=== PATIENT | female | born 1985 | race African-American/Black ===

== ENCOUNTER 2020-02-15 03:51 | Emergency (ER) | payer OTHER, SELFPAY ==
[2020-02-15 04:01] VITALS: BP 151/75; PULSE 115; RESP 20; TEMP 37.2; O2SAT 100; BMI 25.0
[2020-02-15] MEDS: Ketorolac Tromethamine 15 MG/ML VIAL IM (04:46)
[2020-02-15] MEDS: LORazepam 1 MG TABLET PO (04:47)
--- NOTE | 2020-02-15 04:47 | PC.NURSE ---
PATIENT MEDICATED FOR PAIN PER EMAR NOTED. PATIENT RESTING AT THIS TIME
--- NOTE | 2020-02-15 05:11 | PC.NURSE ---
PATIENT HAS SOME RELIEF IN HER PAIN LEVEL.
[2020-02-15 05:12] VITALS: BP 134/53; PULSE 76; RESP 18; TEMP 37; O2SAT 99
--- NOTE | 2020-02-15 05:35 | ED_ITS ---
HPI - Skin/Abscess/Foreign Bdy General Chief complaint: Abdominal Pain Stated complaint: abd pain Time Seen by Provider: 02/15/20 04:37 History of Present Illness HPI narrative: This is a 34-year-old female who presents with a tender area to her right breast without associated fevers, chills, nipple discharge. She states that this started approximately 2 days ago and has increased somewhat in size and is now quite painful. Related Data Home Medications Medication Instructions Recorded Confirmed acetaminophen [Pain Reliever] PO 02/15/20 acetaminophen-codeine 1 tab PO Q12H PRN 02/15/20 02/15/20 gabapentin PO 02/15/20 Allergies Allergy/AdvReac Type Severity Reaction Status Date / Time morphine [MORPHINE] Allergy Unknown HIVES Verified 02/15/20 04:39 raspberry [Raspberry] Allergy Unknown HIVES Verified 02/15/20 04:39 MAcrobid Allergy Unknown GI side Uncoded 02/15/20 04:39 effects morphine Allergy Unknown itching Uncoded 02/15/20 04:40 raspberries Allergy Unknown hives/itchi Uncoded 02/15/20 04:40 ng Raspberry Flavor Allergy Unknown hives Uncoded 02/15/20 04:40 Review of Systems Review of Systems: Pertinent positives and negatives as stated in HPI 10 point review of systems is otherwise negative. PMFSH Past Medical History Medical History Amput below knee, unilat Anxiety Diabetes Hypertension Social History Social History Alcohol intake: unknown Smoking Status: Smoker, status unknown Smoked in Last 30 Days: Yes Use of substances other than those prescribed or required for medical reasons: Yes Substance Use Type: Marijuana Advance Directives: No Advance Directives Information Provided: No Physical Exam Vital Signs and I&O and Narrative: Vital Signs and I&O: Vital Signs Temp 98.6 F 02/15/20 05:12 Pulse 76 02/15/20 05:12 Resp 18 02/15/20 05:12 BP 134/53 L 02/15/20 05:12 Pulse Ox 99 02/15/20 05:12 Intake & Output 02/14/20 02/14/20 02/15/20 06:59 18:59 06:59 Weight 74.843 kg Body Mass Index 25.0 VITAL SIGNS: Reviewed. GENERAL: Well developed, well nourished, in no acute distress. HEAD: Normocephalic/atraumatic, EYES: PERRLA, EOMI intact without pain, no nystagmus/pallor/icterus noted EARS: Ext canals without abnormality, TMs non-bulging and non-erythematous NOSE: Nares patent bilateral OROPHARYNX: no oral lesions noted, posterior pharynx clear and non-erythematous without noted tonsillar enlargement/erythema/exudates NECK: Supple, no adenopathy LUNGS: Normal breath sounds. No adventitious sounds or accessory muscle use. SpO2<99> BREASTS: [employer] present (MARY Mireles), there is a noted 0.5 cm folliculitis at the lateral portion of a pendulous breast that is not erythematous or indurated CARDIOVASCULAR: Regular rate and rhythm without noted murmurs, no JVD or lower extremity edema. ABDOMEN: Soft, non-tender, non-distended with bowel sounds. No rigidity. No guarding. No palpable masses or hernias noted MUSCULOSKELETAL: No tenderness, deformities, or effusions noted on gross inspection. EXTREMITIES: No cyanosis, clubbing or edema. SKIN: Inspection of the skin reveals no rashes, ulcerations, jaundice, pallor, or petechiae. NEUROLOGIC: Alert and oriented x 4. Strength and sensation to light touch were grossly intact Course Course Hospital Course: This is a 34-year-old female who will be treated for mild folliculitis and provided instructions for treating at home with warm moist compresses as well as a short course of antibiotics. MDM - Skin/Abscess/Foreign Bdy MDM Narrative Medical decision making narrative: Folliculitis and doubt abscess Discharge Plan Discharge Clinical Impression: Folliculitis Patient Disposition: Home, Self-Care Instructions: Folliculitis (ED) Additional Instructions: 1. Apply warm, moist compresses at least 3 times a day for 5-10 minutes. 2. You will need to follow-up with a primary care provider, please see the contact information below Prescriptions: No Action acetaminophen [Pain Reliever] 325 mg tablet PO RF: 0 acetaminophen-codeine 300-30 mg tablet 1 tab PO Q12H PRN (Reason: Pain (Scale Score 4-6)) RF: 0 gabapentin 100 mg capsule PO RF: 0 Referrals: Keyon Calvin MD [] - 2 days ( folliculitis of the right breast)
== END 2020-02-15 05:56 | disposition home or self-care (01) ==
PROVIDERS: Emergency Provider Student in an Organized Health Care Education/Training Program
DX: L73.9 Follicular disorder, unspecified (principal); N64.4 Mastodynia; E11.9 Type 2 diabetes mellitus without complications; I10 Essential (primary) hypertension
CPT/HCPCS: 96372; 99284; J1885

== ENCOUNTER 2020-04-10 10:16 | Emergency (ER) | payer OTHER, SELFPAY ==
[2020-04-10 10:47] VITALS: BP 115/75; PULSE 92; RESP 20; TEMP 36.9; O2SAT 98; BMI 25.0
--- NOTE | 2020-04-10 11:08 | ED_ITS ---
HPI - Abdominal Pain General Chief Complaint: Abdominal Pain Stated Complaint: ABD PAIN Time Seen by Provider: 04/10/20 10:47 Source: patient Mode of arrival: ambulatory Limitations: no limitations History of Present Illness HPI narrative: 34 y/o female with history of DM1 (dx age 15), neuropathy, s/p right BKA, depression/anxiety, hx pancreatitis, hx gastroparesis s/p gastric stimulator placement at [facility] 6 years ago who presents severe nausea and epigastric abdominal pain that radiates to her back. She states it started last night and she took a dose of PO reglan without improvement. The nausea is severe and she is afraid to try to take the reglan again. She described the abd pain as sharp, constant. No episodes of vomiting. Her gluocse has been well controlled, reported 72 this morning. She has had a recent cough and some sweats and chills at home. She was around family members 2 weeks ago who tested positive for COVID last weekend. She states she was admitted at [facility] for 1 week about 2 months ago for pancreatitis. She does not recall the cause of her pancreatitis. The abdominal pain she is having feels similar. She denies alcohol use, no new medications. Related Data Home Medications Medication Instructions Recorded Confirmed acetaminophen [Pain Reliever PO 02/15/20 04/08/20 (acetaminophen)] gabapentin PO 02/15/20 04/08/20 insulin glargine 100 unit/mL (3 unit SUBCUT 04/08/20 04/08/20 mL) subcutaneous pen insulin lispro 100 unit/mL unit SUBCUT 04/08/20 04/08/20 subcutaneous pen lisinopril 5 mg tablet 5 mg PO DAILY 04/08/20 04/08/20 omeprazole 20 mg capsule,delayed 20 mg PO DAILY 04/08/20 04/08/20 release Previous Rx's Medication Instructions Recorded acetaminophen 300 mg-codeine 30 mg 1 tab PO Q8H 10 Days #30 tab 04/08/20 tablet ondansetron 4 mg disintegrating 4 mg PO Q8H PRN 30 Days #90 tab 04/08/20 tablet metoclopramide HCl [Reglan] 10 mg PO Q6H PRN #20 tab 04/10/20 Allergies Allergy/AdvReac Type Severity Reaction Status Date / Time morphine [MORPHINE] Allergy Unknown HIVES Verified 04/08/20 13:54 raspberry [Raspberry] Allergy Unknown HIVES Verified 04/08/20 13:54 nitrofurantoin AdvReac Unknown GI side Verified 04/08/20 13:54 [From Macrobid] effects Review of Systems Review of Systems Constitutional: No Fever, + Chills ENT/Mouth: + sore throat, + Rhinorrhea, No Swallowing Difficulty Eyes: No Eye Pain, No Swelling, No Redness Cardiovascular: No Chest Pain, No SOB, No Orthopnea, No Edema Respiratory: + Cough, No Sputum, No Wheezing, + dyspnea Gastrointestinal: + Nausea, No Vomiting, No Diarrhea, + abdominal Pain, No Hematochezia, No Melena Genitourinary: No Dysuria, No Urinary Frequency, No Hematuria Musculoskeletal: No joint pain, + Myalgias Skin: No Skin Lesions, No rash Neuro: No Weakness, No Numbness, No Dizziness, No Headache Psych: + Anxiety/Panic, No Depression Heme/Lymph: No Bruising, No Lymphadenopathy Endocrine: No Polyuria, No Polydipsia Physical Exam Vital Signs: Vital Signs: Last Vital Signs Temp 98.4 F 04/10/20 10:47 Pulse 95 04/10/20 14:12 Resp 20 04/10/20 14:12 BP 129/77 04/10/20 14:12 Pulse Ox 100 04/10/20 14:12 Body Mass Index 25.0 Appearance: Alert. Oriented X3. Restless, appears uncomfortable. Eyes: Pupils equal, round and reactive to light. ENT: Pharynx normal. Neck: Normal inspection. Neck supple. CVS: Normal heart rate and rhythm. Pulses normal. Respiratory: No respiratory distress. Breath sounds normal. Abdomen: well healed 6cm surgical scar in LUQ, soft, epigastric tenderness, mild RUQ tenderness, negative Cordero's sign +BS x4 Skin: Skin warm and dry. Normal skin color. Normal skin turgor. No rashes. Extremities: No lower extremity edema. s/p right BKA, prosthesis in place Neuro: Oriented X 3. No motor deficit. No sensory deficit. Course Course Course Narrative: 34 y/o diabetic type 1, hx gastroparesis and recent pancreatitis presents with abdominal pain and nausea. Concern for recurrent pancreatitis vs gastroparesis set off from upper respiratory infection. Her glucose has been well controlled. Will give Reglan and IVF now. Basic metabolic workup ordered, low suspicion for DKA. Will check CXR and COVID/flu swab give her new cough and potential exposure 2 weeks ago. Dispo pending results and improvement. Reevaluation(s) Reevaluation #1: Patient improved after reglan and dilaudid. Lab workup shows chronic anemia, chronic renal failure, normal LFTs and lipase of 103, previously 130 in January. Doubt acute pancreatitis is causing her symptoms. Unable to get CT scan with contrast to assess for pancreatic necrosis, dry CT of limited utility. Will give PO trial and assess for worsening nausea or pain. Reevaluation #2: Pain and nausea improved. She is tolerating PO. She is stable for discharge. She will follow up with her PCP on Monday. Will give Rx for Reglan, only has zofran at home. Discussed how opiates can worsen gastroparesis and she understands it is in her best interest to avoid them if possible. MDM - Abdominal Pain Lab Data Result diagrams: 04/10/20 11:22 04/10/20 12:37 Labs: Lab Results 04/10/20 04/10/20 04/10/20 Range/Units 11:22 11:22 11:22 WBC 7.7 (4.8-10.8) X10*3/uL RBC 3.16 L (4.20-5.50) X10*6/uL Hgb 8.3 L (12.0-16.0) g/dl Hct 26.9 L (37-47) % MCV 85.1 (80-98) fL MCH 26.3 L (27.0-33.0) pg MCHC 30.9 L (31.0-35.0) g/dl RDW 17.0 H (11.0-16.0) % Plt Count 472 H (160-400) X10*3/uL MPV 10.1 (9.4-12.3) fL Immature Gran % (Auto) 0.4 (0.0-0.4) % Neut % (Auto) 65.0 (45-73) % Lymph % (Auto) 23.3 (20-40) % Mineral % (Auto) 7.1 (2-11) % Eos % (Auto) 3.6 (0-4) % Baso % (Auto) 0.6 (0-2) % Lymph # (Auto) 1.8 (1.2-4.9) X10*3/uL Mineral # (Auto) 0.6 (0.1-1.2) X10*3/uL Eos # (Auto) 0.3 (0.0-0.4) X10*3/uL Baso # (Auto) 0.1 (0.0-0.2) X10*3/uL Abs Immat Gran (auto) 0.03 (0.00-0.03) X10*3/uL Absolute Neuts (auto) 5.0 (2.0-8.3) X10*3/uL Absolute Nucleated RBC 0.000 (0.0-0.012) X10*3/uL Nucleated RBC % (auto) 0.0 (0.0-0.2) /100WBC Sodium Cancelled Potassium Cancelled Chloride Cancelled Carbon Dioxide Cancelled Anion Gap Cancelled BUN Cancelled Creatinine Cancelled Estim Creat Clear Calc Cancelled Estimated GFR Cancelled POC Glucose (60-115) mg/dL Random Glucose Cancelled Calcium Cancelled Magnesium Cancelled Total Bilirubin Cancelled Direct Bilirubin Cancelled AST Cancelled ALT Cancelled Alkaline Phosphatase Cancelled Total Protein Cancelled Albumin Cancelled Lipase Cancelled Urine Color Urine Appearance Urine pH (5.0-8.0) Ur Specific Sproul (1.005-1.025) Urine Protein (NEG-TRACE) MG/DL Urine Glucose (UA) (NEG) MG/DL Urine Ketones (NEG) MG/DL Urine Blood (NEG) Urine Nitrite (NEG) Ur Leukocyte Esterase (NEG) Urine RBC (0) /HPF Urine WBC (0-4) /HPF Ur Squamous Epith Cells /LPF Amorphous Sediment /LPF Urine Bacteria /LPF Urine Test (NEGATIVE) Coronavirus (PCR) NEGATIVE (Negative) Influenza Type A (PCR) NEGATIVE (Negative) Influenza Type B (PCR) NEGATIVE (Negative) RSV RNA Qual (PCR) NEGATIVE (Negative) 04/10/20 04/10/20 04/10/20 Range/Units 11:22 11:54 12:37 WBC (4.8-10.8) X10*3/uL RBC (4.20-5.50) X10*6/uL Hgb (12.0-16.0) g/dl Hct (37-47) % MCV (80-98) fL MCH (27.0-33.0) pg MCHC (31.0-35.0) g/dl RDW (11.0-16.0) % Plt Count (160-400) X10*3/uL MPV (9.4-12.3) fL Immature Gran % (Auto) (0.0-0.4) % Neut % (Auto) (45-73) % Lymph % (Auto) (20-40) % Mineral % (Auto) (2-11) % Eos % (Auto) (0-4) % Baso % (Auto) (0-2) % Lymph # (Auto) (1.2-4.9) X10*3/uL Mineral # (Auto) (0.1-1.2) X10*3/uL Eos # (Auto) (0.0-0.4) X10*3/uL Baso # (Auto) (0.0-0.2) X10*3/uL Abs Immat Gran (auto) (0.00-0.03) X10*3/uL Absolute Neuts (auto) (2.0-8.3) X10*3/uL Absolute Nucleated RBC (0.0-0.012) X10*3/uL Nucleated RBC % (auto) (0.0-0.2) /100WBC Sodium 138 Potassium 4.7 Chloride 110 H Carbon Dioxide 23 Anion Gap 10 L BUN 27 H Creatinine 1.62 H Estim Creat Clear Calc 48.9 Estimated GFR 36 POC Glucose 119 H (60-115) mg/dL Random Glucose 109 Calcium 8.1 L Magnesium 2.0 Total Bilirubin < 0.2 Direct Bilirubin < 0.2 AST 12 ALT 9 Alkaline Phosphatase 82 Total Protein 6.7 Albumin 3.8 Lipase 102 H Urine Color STRAW Urine Appearance CLEAR Urine pH 6.0 (5.0-8.0) Ur Specific Sproul 1.015 (1.005-1.025) Urine Protein NEG (NEG-TRACE) MG/DL Urine Glucose (UA) NEG (NEG) MG/DL Urine Ketones NEG (NEG) MG/DL Urine Blood 3+ H (NEG) Urine Nitrite NEG (NEG) Ur Leukocyte Esterase NEG (NEG) Urine RBC 1-4 (0) /HPF Urine WBC 0 (0-4) /HPF Ur Squamous Epith Cells TRACE /LPF Amorphous Sediment TRACE /LPF Urine Bacteria NONE /LPF Urine Test NEGATIVE (NEGATIVE) Coronavirus (PCR) (Negative) Influenza Type A (PCR) (Negative) Influenza Type B (PCR) (Negative) RSV RNA Qual (PCR) (Negative) Critical Care Time Critical Care Time Critical Care Time: No Discharge Plan Discharge Clinical Impression: Diabetic gastroparesis Patient Disposition: Home, Self-Care Instructions: Diabetic Gastroparesis (DC) Additional Instructions: Take Reglan 30 minutes before meals to help with nausea and gastroparesis. If you develop worsening symptoms come back to the ER for further evalaution. Follow up with your doctor on Monday. Prescriptions: New metoclopramide HCl [Reglan] 10 mg tablet 10 mg PO Q6H PRN (Reason: nausea and vomiting) Qty: 20 RF: 0 Continued acetaminophen [Pain Reliever (acetaminophen)] 325 mg tablet PO RF: 0 gabapentin 100 mg capsule PO RF: 0 omeprazole 20 mg capsule,delayed release(DR/EC) 20 mg PO DAILY RF: 0 insulin glargine 100 unit/mL (3 mL) insulin pen subcut RF: 0 insulin lispro 100 unit/mL insulin pen subcut RF: 0 lisinopril 5 mg tablet 5 mg PO DAILY RF: 0 Held acetaminophen-codeine 300-30 mg tablet 1 tab PO Q8H 10 Days Qty: 30 RF: 1 Hold Instructions: Resume on 04/17/20. ondansetron 4 mg tablet,disintegrating 4 mg PO Q8H PRN (Reason: nausea/vomiting) 30 Days Qty: 90 RF: 1 Hold Instructions: Resume on 04/17/20. Referrals: Philip Long [Physician] - 2 days (gastroparesis s/p stimulator placement ) [facility] Past Medical History Attestation statement: The following information was validated with the patient. Medical History Amput below knee, unilat Anxiety Diabetes Hypertension Surgical History No pertinent past surgical history Family History Family History Father Hyperlipidemia Mother Stomach cancer Sister Diabetes Social History Social History Alcohol intake: unknown Smoking Status: Smoker, status unknown Substance Use Type: Marijuana Advance Directives: No Advance Directives Information Provided: No
--- NOTE | 2020-04-10 11:09 | XR_ITS ---
EXAMINATION: XR CHEST CLINICAL INFORMATION: Cough COMPARISON: Chest radiographs 06/07/2019, 03/27/2019 TECHNIQUE: Portable upright AP view of the chest was obtained. FINDINGS: The lungs are clear. There is no airspace consolidation or groundglass opacity. The costophrenic sulci are well-defined. The heart is normal in size. The hilar and mediastinal contours are normal. There is gentle levocurvature lower thoracic spine. XR/XR chest 1V IMPRESSION: Lungs clear.
[2020-04-10 11:36] LABS: MANUAL DIFF FLAG NO
[2020-04-10 11:38] LABS: Basophils Absolute Auto 0.1 X10*3/uL (0.0-0.2); Basophils Percent Auto 0.6 % (0-2); Eosinophils Absolute Auto 0.3 X10*3/uL (0.0-0.4); Eosinophils Percent Auto 3.6 % (0-4); Hematocrit 26.9 % (37-47); Hemoglobin 8.3 g/dl (12.0-16.0); Imm Gran Abs Auto 0.03 X10*3/uL (0.00-0.03); Imm Gran Pct Auto 0.4 % (0.0-0.4); Lymphocytes Absolute Auto 1.8 X10*3/uL (1.2-4.9); Lymphocytes Percent Auto 23.3 % (20-40); Mean Corpuscular HGB Conc 30.9 g/dl (31.0-35.0); Mean Corpuscular Hemoglobin 26.3 pg (27.0-33.0); Mean Corpuscular Volume 85.1 fL (80-98); Mean Platelet Volume 10.1 fL (9.4-12.3); Monocytes Absolute Auto 0.6 X10*3/uL (0.1-1.2); Monocytes Percent Auto 7.1 % (2-11); Platelet Count 472 X10*3/uL (160-400); Red Blood Count 3.16 X10*6/uL (4.20-5.50); White Blood Count 7.7 X10*3/uL (4.8-10.8)
[2020-04-10 11:39] LABS: Glucose Urine UA NEG (NEG); Leukocyte Esterase Urine NEG (NEG); Nitrite Urine NEG (NEG); Specific Gravity - Urine 1.015 (1.005-1.025); Urine Blood 3+ (NEG); Urine Ketones NEG (NEG); Urine Protein NEG (NEG-TRACE)
[2020-04-10 11:40] LABS: Appearance Urine CLEAR; Color Urine STRAW
[2020-04-10 11:41] LABS: UPreg QC Valid YES; Urine Pregnancy NEGATIVE (NEGATIVE)
[2020-04-10] MEDS: 0.9 % Sodium Chloride 1,000 ML 999 ML IVCONT (11:48)
[2020-04-10] MEDS: Metoclopramide HCl 10 MG/2 ML VIAL IVPUSH ×2 (11:48→14:39)
[2020-04-10 11:51] LABS: Amorphous Sediment Urine TRACE /LPF; Squamous Epithelial Cell Urine TRACE /LPF; WBC Urine 0 /HPF (0-4)
[2020-04-10 11:58] LABS: Glucose, Whole Blood 119 mg/dL (60-115)
[2020-04-10 12:18] VITALS: RESP 18
[2020-04-10 12:18] LABS: Influenza A PCR NEGATIVE (Negative); Influenza B PCR NEGATIVE (Negative); Resp Syncy Virus RNA Qual PCR NEGATIVE (Negative); SARS COV2 PCR INHOUSE NEGATIVE (Negative)
[2020-04-10] MEDS: HYDROmorphone HCl 0.5 MG/0.5 ML SYRINGE IVPUSH ×2 (12:18→14:39)
[2020-04-10 13:16] LABS: Alanine Aminotransferase 9 U/L (0-31); Albumin Level 3.8 g/dL (3.5-5.0); Alkaline Phosphatase 82 U/L (39-117); Anion Gap 10 (12-20); Aspartate Amino Transferase 12 U/L (5-31); Bilirubin Direct < 0.2 mg/dL (0.0-0.5); Bilirubin Total < 0.2 mg/dL (0.0-1.0); Blood Urea Nitrogen 27 mg/dL (9-16); Calcium 8.1 mg/dL (8.4-10.2); Carbon Dioxide 23 mmol/L (22-29); Chloride 110 mmol/L (96-108); Creatinine Clr Calc Pharmacy 48.9; Estimated Glomerular Filt Rate 36; Glucose Random 109 mg/dL (60-115); Potassium 4.7 mmol/l (3.3-5.1); Sodium 138 mmol/L (135-145); Total Protein 6.7 g/dL (6.5-8.0)
[2020-04-10 13:29] LABS: Lipase 102 U/L (8-78)
[2020-04-10 14:12] VITALS: BP 129/77; PULSE 95; RESP 20; O2SAT 100
== END 2020-04-10 15:42 | disposition home or self-care (01) ==
PROVIDERS: Physician Assistant; Emergency Provider Emergency Medicine Emergency Medical Services; PCP Physician Assistant
DX: E11.43 Type 2 diabetes mellitus with diabetic autonomic (poly)neuropathy (principal); R10.13 Epigastric pain; Z20.828 Contact with and (suspected) exposure to other viral communicable diseases; Z79.899 Other long term (current) drug therapy
CPT/HCPCS: 0241U; 36415; 71045; 80048; 80076; 81001; 81025; 82947; 83690; 83735; 85025; 96361; 96374; 96375; 96376; 99283; 99284; J1170; J2765

== ENCOUNTER 2020-05-10 08:50 | Emergency (ER) | payer OTHER, SELFPAY ==
--- NOTE | 2020-05-10 09:00 | PC.NURSE ---
n/v 200ml fluid. mlp (eyal) aware.
[2020-05-10 09:05] VITALS: PULSE 115; RESP 16; TEMP 36.6; O2SAT 98; BMI 24.3
--- NOTE | 2020-05-10 09:16 | ECG_ITS ---
Test Reason : ABDOMINAL PAIN Blood Pressure : / mmHG Vent. Rate : 083 BPM Atrial Rate : 083 BPM P-R Int : 132 ms QRS Dur : 072 ms QT Int : 376 ms P-R-T Axes : 073 -22 031 degrees QTc Int : 441 ms Normal sinus rhythm Normal ECG When compared with ECG of 09-SEP-2019 11:26, No significant change was found Referred By: Karlee Toussaint Electronically Signed By:AGUILA MELO
[2020-05-10 09:28] LABS: Glucose, Whole Blood 212 mg/dL (60-115)
--- NOTE | 2020-05-10 09:30 | PC.NURSE ---
pt is a/o x 3. brief periods of hallucinations, n/v 150ml of fluid, slightly diaphoretic. mlp (eyal) aware
[2020-05-10] MEDS: Haloperidol Lactate 5 MG/ML VIAL IM (09:32)
[2020-05-10] MEDS: LORazepam 2 MG/ML VIAL IM (09:32)
--- NOTE | 2020-05-10 09:39 | ED.ABDPAIN ---
HPI - Abdominal Pain General Chief Complaint: Abdominal Pain Stated Complaint: ABD PAIN Time Seen by Provider: 05/10/20 09:16 Source: patient Mode of arrival: ambulatory Limitations: no limitations History of Present Illness HPI narrative: 35 y/o female with history of DM1, chronic abdominal pain, hx pancreatitis, gastroparesis s/p gastric stimulator placement, anxiety, s/p right BKA presenting with 10/10 abdominal pain along with new onset auditory and visual hallucinations of people telling her to kill herself. She said yesterday people were telling her to go into the river behind her house and that it would make her pain go away if she went and stayed under the water. She is still hearing and seeing people talking to her now. She reports 10/10 diffuse abdominal pain and vomiting for the last 2 days. She reports an episode of passing out this morning. On arrival she is writhing in bed in pain and yelling about people in the corner telling her to hurt herself. MD elicited complaint: abdominal pain Onset (ago): day(s) (2) Pain Consistency: constant Location: diffuse and epigastric Severity: severe Quality: cramping and stabbing Radiation: none Migration to: no migration Exacerbating factors: eating Relieving factors: vomiting Context: history of similar episodes Associated symptoms: nausea and vomiting Related Data Home Medications Medication Instructions Recorded Confirmed gabapentin PO 02/15/20 05/05/20 insulin glargine 100 unit/mL (3 unit SUBCUT 04/08/20 05/05/20 mL) subcutaneous pen insulin lispro 100 unit/mL unit SUBCUT 04/08/20 05/05/20 subcutaneous pen lisinopril 5 mg tablet 5 mg PO DAILY 04/08/20 05/05/20 omeprazole 20 mg capsule,delayed 20 mg PO DAILY 04/08/20 05/05/20 release Previous Rx's Medication Instructions Recorded ondansetron 4 mg disintegrating 4 mg PO Q8H PRN 30 Days #90 tab 04/08/20 tablet metoclopramide HCl [Reglan] 10 mg PO Q6H PRN #20 tab 04/10/20 acetaminophen 325 mg tablet 325 mg PO TID 30 Days #90 tab 04/27/20 acetaminophen 300 mg-codeine 30 mg 1 tab PO ONCE 10 Days #10 tab 04/29/20 tablet Allergies Allergy/AdvReac Type Severity Reaction Status Date / Time morphine [MORPHINE] Allergy Unknown HIVES Verified 04/08/20 13:54 raspberry [Raspberry] Allergy Unknown HIVES Verified 04/08/20 13:54 nitrofurantoin AdvReac Unknown GI side Verified 04/08/20 13:54 [From Macrobid] effects Review of Systems Review of Systems Constitutional: No Fever, No Chills ENT/Mouth: No sore throat, No Rhinorrhea, No Swallowing Difficulty Eyes: No Eye Pain, No Swelling, No Redness Cardiovascular: No Chest Pain, No SOB, No Orthopnea, No Edema Respiratory: No Cough, No Sputum, No Wheezing, No dyspnea Gastrointestinal: + Nausea, + Vomiting, No Diarrhea, + abdominal Pain, No Hematochezia, No Melena Genitourinary: No Dysuria, No Urinary Frequency, No Hematuria Musculoskeletal: No joint pain, No Myalgias Skin: No Skin Lesions, No rash Neuro: No Weakness, No Numbness, + Dizziness, No Headache Psych: + Anxiety/Panic, No Depression, +AH/VH Heme/Lymph: No Bruising, No Lymphadenopathy Endocrine: No Polyuria, No Polydipsia Physical Exam Vital Signs: Vital Signs: Last Vital Signs Temp 98.1 F 05/10/20 14:00 Pulse 80 05/10/20 14:00 Resp 15 05/10/20 14:00 BP 119/59 L 05/10/20 14:00 Pulse Ox 99 05/10/20 14:00 Body Mass Index 24.3 Appearance: Alert, tearful, crying, screaming at times, writhing in the bed, frightened Eyes: Pupils equal, round and reactive to light. ENT: Pharynx normal. Neck: Normal inspection. Neck supple. CVS: rapid rate, regular rhythm. Pulses normal. Respiratory: No respiratory distress. Breath sounds normal. Abdomen: Soft with diffuse tenderness. +BS x4 Skin: Skin warm, diaphoretic, no rashes or lesions. Extremities: s/p right BKA, no LLE rashid,a Neuro: Oriented X 3. moving all extremities spontaneously, anxious with VH/AH Course Course Course Narrative: 35 y/o female with history of DM1, gastroparesis, anxiety/depression, chronic abd pain, pancreatitis presenting with 2 days of abdominal pain, N/V and new onset AH/VH [facility] On arrival patient is vomiting, screaming and scared. She is extremely anxious. Abd exam is soft. Suspect gastoparesis flare causing vomiting but given her history will need full metabolic workup, possible CT scan depending on results. Will give dose of Haldol and Ativan now for her symptoms. Reevaluation(s) Reevaluation #1: 11am - lactic acid elevated 3.9, likely due to dehydration and vomiting. No fever or leukocytosis to suggest infection. Will hydrate with IVF and get set of blood cultures. Reevaluation #2: 1 pm - lactic acid normalized with 1 L IVF. Her pain is significantly improved. Lab workup shows CKD at baseline with normal LFTs and lipase. Concern about her AV/VH with SI. Agrees to speak with N. Consult placed and d/w nursing. Reevaluation #3: 3pm - still awaiting N evaluation. Additional Reevaluation(s): 3:45 - patient cleared from [facility] perspective. She is denying SI, VH, AH at this time. Stable for d/c with plan to f/u with PCP this week. Patient agrees with plan. MDM - Abdominal Pain Medical Records Attestation: I reviewed the patient's medical records. Lab Data Attestation: I reviewed the patient's lab results. Result diagrams: 05/10/20 10:06 05/10/20 10:06 Labs: Lab Results 05/10/20 05/10/20 05/10/20 Range/Units 09:24 10:06 10:06 WBC 5.9 (4.8-10.8) X10*3/uL RBC 3.40 L (4.20-5.50) X10*6/uL Hgb 8.7 L (12.0-16.0) g/dl Hct 29.8 L (37-47) % MCV 87.6 (80-98) fL MCH 25.6 L (27.0-33.0) pg MCHC 29.2 L (31.0-35.0) g/dl RDW 17.1 H (11.0-16.0) % Plt Count 402 H (160-400) X10*3/uL MPV 9.6 (9.4-12.3) fL Immature Gran % (Auto) 0.3 (0.0-0.4) % Neut % (Auto) 81.2 H (45-73) % Lymph % (Auto) 12.5 L (20-40) % [place] % (Auto) 4.6 (2-11) % Eos % (Auto) 0.7 (0-4) % Baso % (Auto) 0.7 (0-2) % Lymph # (Auto) 0.7 L (1.2-4.9) X10*3/uL [place] # (Auto) 0.3 (0.1-1.2) X10*3/uL Eos # (Auto) 0.0 (0.0-0.4) X10*3/uL Baso # (Auto) 0.0 (0.0-0.2) X10*3/uL Abs Immat Gran (auto) 0.02 (0.00-0.03) X10*3/uL Absolute Neuts (auto) 4.8 (2.0-8.3) X10*3/uL Absolute Nucleated RBC 0.000 (0.0-0.012) X10*3/uL Nucleated RBC % (auto) 0.0 (0.0-0.2) /100WBC Sodium 139 (135-145) mmol/L Potassium 4.3 (3.3-5.1) mmol/l Chloride 109 H (96-108) mmol/L Carbon Dioxide 16 L (22-29) mmol/L Anion Gap 18 (12-20) BUN 17 H (9-16) mg/dL Creatinine 1.62 H (0.5-1.4) mg/dL Estim Creat Clear Calc 48.4 Estimated GFR 36 POC Glucose 212 H (60-115) mg/dL Random Glucose 209 H D (60-115) mg/dL Lactic Acid (0.5-2.0) mmol/L Lactic Acid Fup @ 2Hr (0.5-2.0) mmol/L Calcium 9.0 D (8.4-10.2) mg/dL Magnesium 1.9 (1.6-2.6) mg/dL Total Bilirubin 0.2 (0.0-1.0) mg/dL Direct Bilirubin < 0.2 (0.0-0.5) mg/dL AST 21 D (5-31) U/L ALT 13 (0-31) U/L Alkaline Phosphatase 93 (39-117) U/L Total Protein 7.8 (6.5-8.0) g/dL Albumin 4.3 (3.5-5.0) g/dL Lipase 35 (8-78) U/L Urine Test (NEGATIVE) 05/10/20 05/10/20 05/10/20 Range/Units 10:06 12:40 15:33 WBC (4.8-10.8) X10*3/uL RBC (4.20-5.50) X10*6/uL Hgb (12.0-16.0) g/dl Hct (37-47) % MCV (80-98) fL MCH (27.0-33.0) pg MCHC (31.0-35.0) g/dl RDW (11.0-16.0) % Plt Count (160-400) X10*3/uL MPV (9.4-12.3) fL Immature Gran % (Auto) (0.0-0.4) % Neut % (Auto) (45-73) % Lymph % (Auto) (20-40) % [place] % (Auto) (2-11) % Eos % (Auto) (0-4) % Baso % (Auto) (0-2) % Lymph # (Auto) (1.2-4.9) X10*3/uL [place] # (Auto) (0.1-1.2) X10*3/uL Eos # (Auto) (0.0-0.4) X10*3/uL Baso # (Auto) (0.0-0.2) X10*3/uL Abs Immat Gran (auto) (0.00-0.03) X10*3/uL Absolute Neuts (auto) (2.0-8.3) X10*3/uL Absolute Nucleated RBC (0.0-0.012) X10*3/uL Nucleated RBC % (auto) (0.0-0.2) /100WBC Sodium (135-145) mmol/L Potassium (3.3-5.1) mmol/l Chloride (96-108) mmol/L Carbon Dioxide (22-29) mmol/L Anion Gap (12-20) BUN (9-16) mg/dL Creatinine (0.5-1.4) mg/dL Estim Creat Clear Calc Estimated GFR POC Glucose (60-115) mg/dL Random Glucose (60-115) mg/dL Lactic Acid 3.9 H* (0.5-2.0) mmol/L Lactic Acid Fup @ 2Hr 0.9 (0.5-2.0) mmol/L Calcium (8.4-10.2) mg/dL Magnesium (1.6-2.6) mg/dL Total Bilirubin (0.0-1.0) mg/dL Direct Bilirubin (0.0-0.5) mg/dL AST (5-31) U/L ALT (0-31) U/L Alkaline Phosphatase (39-117) U/L Total Protein (6.5-8.0) g/dL Albumin (3.5-5.0) g/dL Lipase (8-78) U/L Urine Test NEGATIVE (NEGATIVE) ECG Data Attestation: I personally reviewed and interpreted this ECG as follows: ECG interpretation date: 05/10/20 ECG interpretation time: 15:38 Interpretation: normal sinus rhyth, HR 83 bpm, MI interval is normal, poor R wave progression, no STEMI Discharge Plan Discharge Clinical Impression: 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 Patient Disposition: Home, Self-Care Instructions: Diabetic Gastroparesis (DC) Additional Instructions: Your lab workup today was unremarkable. It is very important that you follow up with your doctor this week. Take all of your medications as prescribed. If you develop severe abdominal pain, inability to tolerate food or drink by mouth or any other concerning symptom, come back to the ER for further evaluation. Prescriptions: No Action acetaminophen [Pain Reliever (acetaminophen)] 325 mg tablet 325 mg PO TID 30 Days Qty: 90 RF: 0 acetaminophen-codeine 300-30 mg tablet 1 tab PO ONCE 10 Days Qty: 10 RF: 1 Hold Instructions: Resume on 04/17/20. gabapentin 100 mg capsule PO RF: 0 metoclopramide HCl [Reglan] 10 mg tablet 10 mg PO Q6H PRN (Reason: nausea and vomiting) Qty: 20 RF: 0 omeprazole 20 mg capsule,delayed release(DR/EC) 20 mg PO DAILY RF: 0 insulin glargine 100 unit/mL (3 mL) insulin pen subcut RF: 0 insulin lispro 100 unit/mL insulin pen subcut RF: 0 lisinopril 5 mg tablet 5 mg PO DAILY RF: 0 ondansetron 4 mg tablet,disintegrating 4 mg PO Q8H PRN (Reason: nausea/vomiting) 30 Days Qty: 90 RF: 1 Hold Instructions: Resume on 04/17/20. [facility] Past Medical History Attestation statement: The following information was validated with the patient. Medical History (Updated 05/10/20 @ 15:50 by NOE Landaverde) Amput below knee, unilat Anxiety Chronic kidney disease Diabetes Hypertension Surgical History (Updated 05/05/20 @ 11:31 by Dariusz Garcia PA-C) No pertinent past surgical history Family History Family History Father Hyperlipidemia Mother Stomach cancer Sister Diabetes Social History Social History Alcohol intake: unknown Smoking Status: Smoker, status unknown Substance Use Type: Marijuana Advance Directives: No Advance Directives Information Provided: No
[2020-05-10 10:14] LABS: MANUAL DIFF FLAG NO
[2020-05-10 10:18] LABS: Basophils Percent Auto 0.7 % (0-2); Eosinophils Percent Auto 0.7 % (0-4); Hematocrit 29.8 % (37-47); Hemoglobin 8.7 g/dl (12.0-16.0); Imm Gran Abs Auto 0.02 X10*3/uL (0.00-0.03); Imm Gran Pct Auto 0.3 % (0.0-0.4); Lymphocytes Absolute Auto 0.7 X10*3/uL (1.2-4.9); Lymphocytes Percent Auto 12.5 % (20-40); Mean Corpuscular HGB Conc 29.2 g/dl (31.0-35.0); Mean Corpuscular Hemoglobin 25.6 pg (27.0-33.0); Mean Corpuscular Volume 87.6 fL (80-98); Mean Platelet Volume 9.6 fL (9.4-12.3); Monocytes Absolute Auto 0.3 X10*3/uL (0.1-1.2); Monocytes Percent Auto 4.6 % (2-11); Neutrophils Absolute Auto 4.8 X10*3/uL (2.0-8.3); Neutrophils Percent Auto 81.2 % (45-73); Platelet Count 402 X10*3/uL (160-400); Red Cell Distribution Width 17.1 % (11.0-16.0); White Blood Count 5.9 X10*3/uL (4.8-10.8)
[2020-05-10 10:46] LABS: Lactic Acid 3.9 mmol/L (0.5-2.0)
[2020-05-10 10:47] LABS: Alanine Aminotransferase 13 U/L (0-31); Albumin Level 4.3 g/dL (3.5-5.0); Alkaline Phosphatase 93 U/L (39-117); Anion Gap 18 (12-20); Aspartate Amino Transferase 21 U/L (5-31); Bilirubin Direct < 0.2 mg/dL (0.0-0.5); Bilirubin Total 0.2 mg/dL (0.0-1.0); Blood Urea Nitrogen 17 mg/dL (9-16); Carbon Dioxide 16 mmol/L (22-29); Chloride 109 mmol/L (96-108); Creatinine Clr Calc Pharmacy 48.4; Estimated Glomerular Filt Rate 36; Glucose Random 209 mg/dL (60-115); Lipase 35 U/L (8-78); Magnesium 1.9 mg/dL (1.6-2.6); Potassium 4.3 mmol/l (3.3-5.1); Sodium 139 mmol/L (135-145); Total Protein 7.8 g/dL (6.5-8.0)
[2020-05-10 11:21] VITALS: PULSE 17
[2020-05-10] MEDS: 0.9 % Sodium Chloride 1,000 ML 999 ML IVCONT ×2 (11:25→12:30)
[2020-05-10 12:00] VITALS: RESP 16
[2020-05-10 12:13] LABS: Reflex Lactate? Lactic Acid Added
[2020-05-10 13:05] LABS: ~Lactic Acid-LAB USE ONLY 0.9 mmol/L (0.5-2.0)
--- NOTE | 2020-05-10 13:30 | PC.NURSE ---
per mlp (eyal) pt is c/o of visual and auditory hallucinations to hurt self. bhn to eval.
[2020-05-10 14:00] VITALS: BP 119/59; PULSE 80; RESP 15; TEMP 36.7; O2SAT 99
--- NOTE | 2020-05-10 14:29 | PC.NURSE ---
[facility] faxed/called, this rn spoke with chas (latasha).
--- NOTE | 2020-05-10 15:37 | PC.NURSE ---
Bhn at bedside for eval. unable to obtain blood cultures, pt difficult stick and is now refusing. provider aware.
[2020-05-10 15:46] LABS: UPreg QC Valid YES; Urine Pregnancy NEGATIVE (NEGATIVE)
--- NOTE | 2020-05-10 15:49 | PC.NURSE ---
[facility] requested pt information printed, information given to clinician
[2020-05-10 16:00] LABS: Amphetamine Screen Urine Not Detected (Not Detect); Barbiturates, Urine Not Detected (Not Detect); Benzodiazepines Screen Urine Not Detected (Not Detect); Cannabinoid Screen Urine POSITIVE (Not Detect); Cocaine Screen Urine Not Detected (Not Detect); Opiate Screen Urine POSITIVE (Not Detect); Phencyclidine Screen Urine Not Detected (Not Detect)
== END 2020-05-10 16:03 | disposition home or self-care (01) ==
PROVIDERS: Physician Assistant; Emergency Provider Emergency Medicine Emergency Medical Services; PCP Physician Assistant
DX: E11.43 Type 2 diabetes mellitus with diabetic autonomic (poly)neuropathy (principal); K31.84 Gastroparesis; R44.0 Auditory hallucinations; F12.90 Cannabis use, unspecified, uncomplicated; I10 Essential (primary) hypertension; Z79.899 Other long term (current) drug therapy; Z79.4 Long term (current) use of insulin
CPT/HCPCS: 80048; 80076; 80307; 81025; 82947; 83605; 83690; 83735; 85025; 93005; 96361; 96372; 99285; J2060

== ENCOUNTER 2020-05-22 14:21 | Emergency (ER) | payer OTHER, SELFPAY ==
[2020-05-22 14:38] VITALS: BP 104/64; BP 132/85; PULSE 94; PULSE 95; RESP 18; TEMP 37.2; O2SAT 100; BMI 24.3
--- NOTE | 2020-05-22 15:13 | XR_ITS ---
EXAMINATION: XR CHEST CLINICAL INFORMATION: Chest pain per COMPARISON: None TECHNIQUE: Frontal view of the chest was obtained. FINDINGS: No significant abnormality is noted involving the heart, lungs, mediastinum, bony thorax or soft tissues. XR/XR chest 1V IMPRESSION: Unremarkable chest examination.
--- NOTE | 2020-05-22 15:13 | ECG_ITS ---
Test Reason : BACK PAIN Blood Pressure : / mmHG Vent. Rate : 077 BPM Atrial Rate : 077 BPM P-R Int : 126 ms QRS Dur : 086 ms QT Int : 380 ms P-R-T Axes : 060 -22 017 degrees QTc Int : 430 ms Normal sinus rhythm Normal ECG When compared with ECG of 10-MAY-2020 15:24, No significant change was found Referred By: Francisca Leon Electronically Signed By:Shaq Childers
--- NOTE | 2020-05-22 15:36 | ED_ITS ---
HPI - Chest Pain General Chief Complaint: Abdominal Pain Stated Complaint: chest pain Time Seen by Provider: 05/22/20 15:05 Source: patient and EMS Mode of arrival: EMS History of Present Illness HPI narrative: 35-year-old female with a past medical history of diabetes, chronic abdominal pain, pancreatitis, gastroparesis, s/p stimulator placement, anxiety, s/p right BKA presenting to the ED complaining of epigastric abdominal pain/substernal chest pain radiating to left shoulder since May 10. Reports pain is persistent. Denies fever, chills, cough, nausea/vomiting, diarrhea, LE edema MD complaint: chest pain and chest heaviness Related Data Home Medications Medication Instructions Recorded Confirmed gabapentin PO 02/15/20 05/05/20 insulin glargine 100 unit/mL (3 unit SUBCUT 04/08/20 05/05/20 mL) subcutaneous pen insulin lispro 100 unit/mL unit SUBCUT 04/08/20 05/05/20 subcutaneous pen lisinopril 5 mg tablet 5 mg PO DAILY 04/08/20 05/05/20 omeprazole 20 mg capsule,delayed 20 mg PO DAILY 04/08/20 05/05/20 release acetaminophen 300 mg-codeine 30 mg 1 tab PO ONCE PRN tab 05/19/20 tablet Previous Rx's Medication Instructions Recorded ondansetron 4 mg disintegrating 4 mg PO Q8H PRN 30 Days #90 tab 04/08/20 tablet metoclopramide HCl [Reglan] 10 mg PO Q6H PRN #20 tab 04/10/20 acetaminophen 325 mg tablet 325 mg PO TID 30 Days #90 tab 04/27/20 acetaminophen 300 mg-codeine 30 mg 1 tab PO DAILY PRN 10 Days #10 tab 05/19/20 tablet Allergies Allergy/AdvReac Type Severity Reaction Status Date / Time morphine [MORPHINE] Allergy Unknown HIVES Verified 04/08/20 13:54 raspberry [Raspberry] Allergy Unknown HIVES Verified 04/08/20 13:54 nitrofurantoin AdvReac Unknown GI side Verified 04/08/20 13:54 [From Macrobid] effects Review of Systems Review of Systems: Constitutional: No Weight loss, No Fever, No Chills Eyes: No Eye Pain, No Swelling, No Redness, No Foreign Body, No Discharge, No Vision Changes Cardiovascular: + Chest Pain, No SOB, No Dyspnea on Exertion Respiratory: No Cough, No Sputum, No Wheezing Gastrointestinal: No Nausea, No Vomiting, No Diarrhea, No Constipation, + Abdominal pain Musculoskeletal: No joint pain, No Myalgias, No Joint Swelling Skin: No Skin Lesions, No rash Yes all other systems are reviewed and are negative [facility] Past Medical History Attestation statement: The following information was validated with the patient. Medical History (Updated 05/22/20 @ 18:36 by NOE Pedro) Amput below knee, unilat Anxiety Chronic kidney disease Diabetes Hypertension Surgical History (Updated 05/05/20 @ 11:31 by Dariusz Garcia PA-C) No pertinent past surgical history Family History Family History Father Hyperlipidemia Mother Stomach cancer Sister Diabetes Social History Social History Alcohol intake: unknown Smoking Status: Smoker, status unknown Substance Use Type: Marijuana Advance Directives: No Advance Directives Information Provided: No Physical Exam Vital Signs: Vital Signs: Last Vital Signs Temp 98.2 F 05/22/20 17:00 Pulse 92 05/22/20 18:17 Resp 18 05/22/20 18:17 BP 128/84 05/22/20 17:00 Pulse Ox 100 05/22/20 18:17 Body Mass Index 24.3 Const: General: cooperative and healthy appearing Orientation/consciousness: patient oriented x3 Limitations: no limitations HENMT: Head: Yes normal to inspection Ears: hearing grossly normal bilaterally General nose exam: Normal external nose present Face and sinus: Yes normal facial exam Eyes: General: appearance normal, both eyes and all related structures EOM: EOMs intact bilaterally Neck: Neck: Yes normal visual inspection Resp: Effort & Inspection: normal respiratory effort Auscultation: clear to auscultation bilaterally, no crackles, no rales and no wheezes Cardio: Rate: regular rate Heart sounds: S1 normal heart sound present and S2 normal heart sound present GI: Inspection: Yes normal to inspection Palpation (GI): Soft to palpation, Tenderness to palpation present (GI) in the epigastrum and in the LUQ, no guarding and not rigid Skin: Rashes: no rashes Wounds: no wounds Neuro: General: patient oriented x3 Gait exam (Neuro): Normal gait present Extrem: General: Yes normal to inspection Course Course Course Narrative: * No leukocytosis, Creatinine elevated at pts baseline * Troponin negative, labs otherwise unremarkable, COVID-19/influenza/RSV neg ative * Chest x-ray unremarkable * 1758-on re-evaluation patient writhing in pain, pacing around room, 0.5mg IV Dilaudid ordered, then will re-evaluate * After IV Dilaudid patient reports symptomatic improvement, ride is waiting in the waiting room, patient eloped prior to discharge paperwork given MDM - Chest Pain MDM Narrative Medical decision making narrative: 35-year-old female with a past medical history of diabetes, chronic abdominal pain, pancreatitis, gastroparesis, s/p stimulator placement, anxiety, s/p right BKA presenting to the ED complaining of epigastric abdominal pain/substernal chest pain radiating to left shoulder since May 10. On exam VSS, NAD, lungs CTA, abdomen soft with epigastric/LUQ TTP, no rebound or guarding. Concern for acute on chronic diabetic gastroparesis vs pancreatitis vs ? ACS although lower concern. Rule out COVID- 19. Low concern for PE or appendicitis/diverticulitis Plan: EKG, labs, CXR, COVID-19 testing, symptomatic therapy/reassess Lab Data Result diagrams: 05/22/20 16:27 05/22/20 16:27 Labs: Lab Results 05/22/20 05/22/20 05/22/20 Range/Units 16:27 16:27 16:27 WBC 8.2 (4.8-10.8) X10*3/uL RBC 2.98 L (4.20-5.50) X10*6/uL Hgb 7.6 L (12.0-16.0) g/dl Hct 24.9 L (37-47) % MCV 83.6 (80-98) fL MCH 25.5 L (27.0-33.0) pg MCHC 30.5 L (31.0-35.0) g/dl RDW 16.3 H (11.0-16.0) % Plt Count 404 H (160-400) X10*3/uL MPV 9.3 L (9.4-12.3) fL Immature Gran % (Auto) 0.2 (0.0-0.4) % Neut % (Auto) 66.8 (45-73) % Lymph % (Auto) 25.2 (20-40) % [place] % (Auto) 4.4 (2-11) % Eos % (Auto) 2.4 (0-4) % Baso % (Auto) 1.0 (0-2) % Lymph # (Auto) 2.1 (1.2-4.9) X10*3/uL [place] # (Auto) 0.4 (0.1-1.2) X10*3/uL Eos # (Auto) 0.2 (0.0-0.4) X10*3/uL Baso # (Auto) 0.1 (0.0-0.2) X10*3/uL Abs Immat Gran (auto) 0.02 (0.00-0.03) X10*3/uL Absolute Neuts (auto) 5.5 (2.0-8.3) X10*3/uL Absolute Nucleated RBC 0.000 (0.0-0.012) X10*3/uL Nucleated RBC % (auto) 0.0 (0.0-0.2) /100WBC Hold Blue Top SEE NOTE Sodium 134 L (135-145) mmol/L Potassium 4.6 (3.3-5.1) mmol/l Chloride 103 (96-108) mmol/L Carbon Dioxide 22 (22-29) mmol/L Anion Gap 14 (12-20) BUN 20 H (9-16) mg/dL Creatinine 1.84 H (0.5-1.4) mg/dL Estim Creat Clear Calc 42.6 Estimated GFR 31 Random Glucose 188 H (60-115) mg/dL Calcium 8.5 (8.4-10.2) mg/dL Magnesium 2.2 (1.6-2.6) mg/dL Ferritin 3 L (10-122) ng/mL Total Bilirubin < 0.2 (0.0-1.0) mg/dL Direct Bilirubin < 0.2 (0.0-0.5) mg/dL AST 15 (5-31) U/L ALT 10 (0-31) U/L Alkaline Phosphatase 83 (39-117) U/L Lactate Dehydrogenase 214 (122-220) U/L Troponin I High Sens (<3.5-17.0) ng/L C-Reactive Protein 0.08 (< or = 0.50) mg/dL Total Protein 7.5 (6.5-8.0) g/dL Albumin 4.3 (3.5-5.0) g/dL Lipase 51 (8-78) U/L Procalcitonin ng/mL Coronavirus (PCR) (Negative) Influenza Type A (PCR) (Negative) Influenza Type B (PCR) (Negative) RSV RNA Qual (PCR) (Negative) 05/22/20 05/22/20 05/22/20 Range/Units 16:27 16:27 16:29 WBC (4.8-10.8) X10*3/uL RBC (4.20-5.50) X10*6/uL Hgb (12.0-16.0) g/dl Hct (37-47) % MCV (80-98) fL MCH (27.0-33.0) pg MCHC (31.0-35.0) g/dl RDW (11.0-16.0) % Plt Count (160-400) X10*3/uL MPV (9.4-12.3) fL Immature Gran % (Auto) (0.0-0.4) % Neut % (Auto) (45-73) % Lymph % (Auto) (20-40) % [place] % (Auto) (2-11) % Eos % (Auto) (0-4) % Baso % (Auto) (0-2) % Lymph # (Auto) (1.2-4.9) X10*3/uL [place] # (Auto) (0.1-1.2) X10*3/uL Eos # (Auto) (0.0-0.4) X10*3/uL Baso # (Auto) (0.0-0.2) X10*3/uL Abs Immat Gran (auto) (0.00-0.03) X10*3/uL Absolute Neuts (auto) (2.0-8.3) X10*3/uL Absolute Nucleated RBC (0.0-0.012) X10*3/uL Nucleated RBC % (auto) (0.0-0.2) /100WBC Hold Blue Top Sodium (135-145) mmol/L Potassium (3.3-5.1) mmol/l Chloride (96-108) mmol/L Carbon Dioxide (22-29) mmol/L Anion Gap (12-20) BUN (9-16) mg/dL Creatinine (0.5-1.4) mg/dL Estim Creat Clear Calc Estimated GFR Random Glucose (60-115) mg/dL Calcium (8.4-10.2) mg/dL Magnesium (1.6-2.6) mg/dL Ferritin (10-122) ng/mL Total Bilirubin (0.0-1.0) mg/dL Direct Bilirubin (0.0-0.5) mg/dL AST (5-31) U/L ALT (0-31) U/L Alkaline Phosphatase (39-117) U/L Lactate Dehydrogenase (122-220) U/L Troponin I High Sens < 3.5 (<3.5-17.0) ng/L C-Reactive Protein (< or = 0.50) mg/dL Total Protein (6.5-8.0) g/dL Albumin (3.5-5.0) g/dL Lipase (8-78) U/L Procalcitonin 0.03 ng/mL Coronavirus (PCR) NEGATIVE (Negative) Influenza Type A (PCR) NEGATIVE (Negative) Influenza Type B (PCR) NEGATIVE (Negative) RSV RNA Qual (PCR) NEGATIVE (Negative) Discharge Plan Discharge Clinical Impression: Atypical chest pain, Diabetic gastroparesis Patient Disposition: Home, Self-Care Instructions: Chest Pain (ED), Gastroparesis (ED) Additional Instructions: X-ray were reassuring today in the emergency department You should follow-up with her primary care doctor and GI doctor Stay hydrated at home If her symptoms persist or worsen, you have fever, you are unable to eat or drink return to the ED Prescriptions: No Action acetaminophen [Pain Reliever (acetaminophen)] 325 mg tablet 325 mg PO TID 30 Days Qty: 90 RF: 0 acetaminophen-codeine 300-30 mg tablet 1 tab PO ONCE PRNRF: 0 acetaminophen-codeine 300-30 mg tablet 1 tab PO DAILY PRN (Reason: pain) 10 Days Qty: 10 RF: 1 Hold Instructions: Resume on 04/17/20. gabapentin 100 mg capsule PO RF: 0 metoclopramide HCl [Reglan] 10 mg tablet 10 mg PO Q6H PRN (Reason: nausea and vomiting) Qty: 20 RF: 0 omeprazole 20 mg capsule,delayed release(DR/EC) 20 mg PO DAILY RF: 0 insulin glargine 100 unit/mL (3 mL) insulin pen subcut RF: 0 insulin lispro 100 unit/mL insulin pen subcut RF: 0 lisinopril 5 mg tablet 5 mg PO DAILY RF: 0 ondansetron 4 mg tablet,disintegrating 4 mg PO Q8H PRN (Reason: nausea/vomiting) 30 Days Qty: 90 RF: 1 Hold Instructions: Resume on 04/17/20. Referrals: Ventura Elliott MD [Physician] - 3 days Interventions: ED Discharge Assessment Last Done: 05/22/20 18:37 Discharge Date/Time: 05/22/20 18:39
[2020-05-22] MEDS: Famotidine/PF 20 MG/2 ML VIAL IVPUSH (16:36)
[2020-05-22] MEDS: Magnesium Hydrox/Alum Hydrox 30 ML ORAL.SUSP PO (16:36)
[2020-05-22] MEDS: Lidocaine HCl Viscous 2 % 15 ML SOLUTION MUCOUS MEM (16:36)
[2020-05-22 16:45] LABS: MANUAL DIFF FLAG NO
[2020-05-22 16:46] LABS: Basophils Absolute Auto 0.1 X10*3/uL (0.0-0.2); Eosinophils Absolute Auto 0.2 X10*3/uL (0.0-0.4); Eosinophils Percent Auto 2.4 % (0-4); Hematocrit 24.9 % (37-47); Hemoglobin 7.6 g/dl (12.0-16.0); Imm Gran Abs Auto 0.02 X10*3/uL (0.00-0.03); Imm Gran Pct Auto 0.2 % (0.0-0.4); Lymphocytes Absolute Auto 2.1 X10*3/uL (1.2-4.9); Lymphocytes Percent Auto 25.2 % (20-40); Mean Corpuscular HGB Conc 30.5 g/dl (31.0-35.0); Mean Corpuscular Hemoglobin 25.5 pg (27.0-33.0); Mean Corpuscular Volume 83.6 fL (80-98); Mean Platelet Volume 9.3 fL (9.4-12.3); Monocytes Absolute Auto 0.4 X10*3/uL (0.1-1.2); Monocytes Percent Auto 4.4 % (2-11); Neutrophils Absolute Auto 5.5 X10*3/uL (2.0-8.3); Neutrophils Percent Auto 66.8 % (45-73); Platelet Count 404 X10*3/uL (160-400); Red Blood Count 2.98 X10*6/uL (4.20-5.50); Red Cell Distribution Width 16.3 % (11.0-16.0); White Blood Count 8.2 X10*3/uL (4.8-10.8)
[2020-05-22 16:57] VITALS: BP 128/84; PULSE 78
[2020-05-22 16:59] VITALS: BP 112/85; BP 127/94; PULSE 86; PULSE 94
[2020-05-22 17:00] VITALS: BP 128/84; PULSE 78; RESP 18; TEMP 36.8; O2SAT 100
[2020-05-22 17:13] LABS: Troponin-I High Sensitivity < 3.5 ng/L (<3.5-17.0)
[2020-05-22 17:22] LABS: Alanine Aminotransferase 10 U/L (0-31); Albumin Level 4.3 g/dL (3.5-5.0); Alkaline Phosphatase 83 U/L (39-117); Anion Gap 14 (12-20); Aspartate Amino Transferase 15 U/L (5-31); Bilirubin Direct < 0.2 mg/dL (0.0-0.5); Bilirubin Total < 0.2 mg/dL (0.0-1.0); Blood Urea Nitrogen 20 mg/dL (9-16); C Reactive Protein 0.08 mg/dL (< or = 0.50); Calcium 8.5 mg/dL (8.4-10.2); Carbon Dioxide 22 mmol/L (22-29); Chloride 103 mmol/L (96-108); Creatinine Clr Calc Pharmacy 42.6; Estimated Glomerular Filt Rate 31; Glucose Random 188 mg/dL (60-115); Lactate Dehydrogenase 214 U/L (122-220); Lipase 51 U/L (8-78); Magnesium 2.2 mg/dL (1.6-2.6); Potassium 4.6 mmol/l (3.3-5.1); Sodium 134 mmol/L (135-145); Total Protein 7.5 g/dL (6.5-8.0)
[2020-05-22 17:24] LABS: Procalcitonin 0.03 ng/mL
[2020-05-22 17:25] LABS: Influenza A PCR NEGATIVE (Negative); Influenza B PCR NEGATIVE (Negative); Resp Syncy Virus RNA Qual PCR NEGATIVE (Negative); SARS COV2 PCR INHOUSE NEGATIVE (Negative)
[2020-05-22 17:28] LABS: Ferritin 3 ng/mL (10-122)
--- NOTE | 2020-05-22 17:46 | PC.NURSE ---
ATTEMPTING TO MEDICATE THE PT WITH ATIVAN BUT PT STATES SHE WANTS DIULATED INSTEAD, STATES SHE WANTS TO GO HOME. NINA LIU AWARE.
[2020-05-22] MEDS: HYDROmorphone HCl 0.5 MG/0.5 ML SYRINGE IVPUSH (18:12)
[2020-05-22 18:17] VITALS: PULSE 92; RESP 18; O2SAT 100
== END 2020-05-22 18:39 | disposition home or self-care (01) ==
PROVIDERS: Physician Assistant; Emergency Provider Emergency Medicine; PCP Physician Assistant
DX: R07.9 Chest pain, unspecified (principal); R10.9 Unspecified abdominal pain; K31.84 Gastroparesis; R60.0 Localized edema; M25.512 Pain in left shoulder; E11.43 Type 2 diabetes mellitus with diabetic autonomic (poly)neuropathy; Z79.899 Other long term (current) drug therapy; Z20.828 Contact with and (suspected) exposure to other viral communicable diseases
CPT/HCPCS: 0241U; 36415; 71045; 80048; 80076; 82728; 83615; 83690; 83735; 84145; 84484; 85025; 86140; 93005; 96361; 96374; 96375; 99283; 99284; J1170

== ENCOUNTER 2020-05-31 01:04 | Emergency (ER) | payer OTHER, SELFPAY ==
[2020-05-31 01:22] VITALS: BMI 25.0
--- NOTE | 2020-05-31 01:29 | PC.NURSE ---
Pt arrives thrashing constantly, unable to calm patient down for a complete triage, UTO VS. Pt screaming, unable to calm down. Pt requesting water, immediately vomiting water up. Pt provided with ice chips but refusing ice chips, yelling YOU LIED TO ME!!! I NEED WATER!! Pt attempting to get OOB to find water!!!! 2 RNs at bedside keeping pt in bed. 2 MDs at bedside for primary eval.
[2020-05-31] MEDS: LORazepam 2 MG/ML VIAL 1 MG IM (01:37)
--- NOTE | 2020-05-31 01:45 | PC.NURSE ---
Pt medicated with Ativan per MAR. Pt continues screaming and thrashing and making any care impossible. MD at bedside to reevaluate pt and plan of care. MD aware that until Ativan is effective, pt is unmanageable.
[2020-05-31] MEDS: Metoclopramide HCl 10 MG/2 ML VIAL IM (01:56)
[2020-05-31] MEDS: Ketorolac Tromethamine 15 MG/ML VIAL IM (01:56)
[2020-05-31] MEDS: diphenhydrAMINE HCL 50 MG/ML VIAL 25 MG IM (01:56)
[2020-05-31 01:59] LABS: Glucose, Whole Blood 238 mg/dL (60-115)
--- NOTE | 2020-05-31 02:00 | PC.NURSE ---
Pt medicated per JUL. POC obtained by biometric fingerprinting technician. biometric fingerprinting technician to obtain labs. Awaiting medications to take effect to obtain VS.
--- NOTE | 2020-05-31 02:15 | PC.NURSE ---
premises technician at bedside attempting to obtain labs. Pt resting in bed at this time, calm and cooperative. Plan for VS and labs.
[2020-05-31 02:22] VITALS: BP 202/86; PULSE 89; RESP 20
[2020-05-31 02:22] LABS: MANUAL DIFF FLAG NO
[2020-05-31 02:24] LABS: Basophils Absolute Auto 0.1 X10*3/uL (0.0-0.2); Basophils Percent Auto 0.6 % (0-2); Eosinophils Absolute Auto 0.2 X10*3/uL (0.0-0.4); Eosinophils Percent Auto 1.7 % (0-4); Hematocrit 28.2 % (37-47); Hemoglobin 8.2 g/dl (12.0-16.0); Imm Gran Abs Auto 0.03 X10*3/uL (0.00-0.03); Imm Gran Pct Auto 0.3 % (0.0-0.4); Lymphocytes Absolute Auto 1.2 X10*3/uL (1.2-4.9); Lymphocytes Percent Auto 12.3 % (20-40); Mean Corpuscular HGB Conc 29.1 g/dl (31.0-35.0); Mean Corpuscular Hemoglobin 24.8 pg (27.0-33.0); Mean Corpuscular Volume 85.5 fL (80-98); Mean Platelet Volume 10.2 fL (9.4-12.3); Monocytes Absolute Auto 0.4 X10*3/uL (0.1-1.2); Monocytes Percent Auto 4.2 % (2-11); Neutrophils Absolute Auto 7.8 X10*3/uL (2.0-8.3); Neutrophils Percent Auto 80.9 % (45-73); Platelet Count 329 X10*3/uL (160-400); Red Cell Distribution Width 17.2 % (11.0-16.0); White Blood Count 9.6 X10*3/uL (4.8-10.8)
[2020-05-31 03:10] LABS: Alanine Aminotransferase 23 U/L (0-31); Albumin Level 4.4 g/dL (3.5-5.0); Alkaline Phosphatase 93 U/L (39-117); Anion Gap 19 (12-20); Aspartate Amino Transferase 29 U/L (5-31); Bilirubin Total < 0.2 mg/dL (0.0-1.0); Blood Urea Nitrogen 14 mg/dL (9-16); Calcium 9.1 mg/dL (8.4-10.2); Carbon Dioxide 17 mmol/L (22-29); Chloride 110 mmol/L (96-108); Creatinine Clr Calc Pharmacy 37.1; Estimated Glomerular Filt Rate 30; Glucose Random 225 mg/dL (60-115); Lipase 62 U/L (8-78); Potassium 4.7 mmol/l (3.3-5.1); Sodium 141 mmol/L (135-145); Total Protein 7.7 g/dL (6.5-8.0)
--- NOTE | 2020-05-31 03:43 | PC.NURSE ---
Pt wakes in bed, reporting 10/10 pain to abdomen, states the medications that you gave me didn't help! MD at bedside for eval. Plan for PO challenge and PO pain medication. Pt requesting to go to the bathroom, urine sample obtained and sent. Continue to monitor.
--- NOTE | 2020-05-31 04:15 | ED.ABDPAIN ---
HPI - Abdominal Pain General Chief Complaint: Abdominal Pain Stated Complaint: BACK PAIN Time Seen by Provider: 05/31/20 01:17 Source: patient Mode of arrival: ambulatory History of Present Illness HPI narrative: This is a 35-year-old female with significant past medical history of multiple visits to the emergency department, diabetes, BKA who presents with complaints of worsening back and abdominal pain since yesterday associated with nausea and vomiting but no fever and chills. MD elicited complaint: abdominal pain Related Data Home Medications Medication Instructions Recorded Confirmed gabapentin PO 02/15/20 05/05/20 insulin glargine 100 unit/mL (3 unit SUBCUT 04/08/20 05/05/20 mL) subcutaneous pen insulin lispro 100 unit/mL unit SUBCUT 04/08/20 05/05/20 subcutaneous pen lisinopril 5 mg tablet 5 mg PO DAILY 04/08/20 05/05/20 omeprazole 20 mg capsule,delayed 20 mg PO DAILY 04/08/20 05/05/20 release acetaminophen 300 mg-codeine 30 mg 1 tab PO ONCE PRN tab 05/19/20 tablet Previous Rx's Medication Instructions Recorded ondansetron 4 mg disintegrating 4 mg PO Q8H PRN 30 Days #90 tab 04/08/20 tablet metoclopramide HCl [Reglan] 10 mg PO Q6H PRN #20 tab 04/10/20 acetaminophen 325 mg tablet 325 mg PO TID 30 Days #90 tab 04/27/20 acetaminophen 300 mg-codeine 30 mg 1 tab PO DAILY PRN 10 Days #10 tab 05/19/20 tablet Allergies Allergy/AdvReac Type Severity Reaction Status Date / Time morphine [MORPHINE] Allergy Unknown HIVES Verified 04/08/20 13:54 raspberry [Raspberry] Allergy Unknown HIVES Verified 04/08/20 13:54 nitrofurantoin AdvReac Unknown GI side Verified 04/08/20 13:54 [From Macrobid] effects Review of Systems Review of Systems Pertinent positives and negatives as stated in HPI 10 point review of systems is otherwise negative. Physical Exam Vital Signs: Vital Signs: Last Vital Signs Pulse 89 05/31/20 02:22 Resp 24 H 05/31/20 04:45 BP 202/86 H 05/31/20 02:22 Body Mass Index 25.0 VITAL SIGNS: Reviewed. GENERAL: Well developed, well nourished, in no acute distress. HEAD: Normocephalic/atraumatic, EYES: PERRLA, EOMI EARS: Ext canals without abnormality NOSE: Nares patent bilateral OROPHARYNX: no oral lesions noted, posterior pharynx clear, moist mucosa NECK: Supple, no adenopathy LUNGS: Normal breath sounds. CARDIOVASCULAR: Regular rate and rhythm without noted murmurs ABDOMEN: Soft, mild tenderness in epigastrium, non-distended with bowel sounds. No rigidity. NEUROLOGIC: Alert and oriented x 4. PSYCH: anxious, screaming Course Course Course Narrative: This is a 35-year-old female with history and clinical presentation suggestive of a combination of underlying chronic pain in combination with known diabetes and gastroparesis and will treat and evaluate for possible exacerbation gastroparesis despite documentation stating the patient has a stimulator in place. Patient provided with a combination Ativan/Reglan/Benadryl/Toradol for anxiety and pain control. All examinations were reviewed there is no evidence systemic infection and patient has chronic stable anemia. P.o. challenge was successful and patient was discharged with instructions to continue to hydrate and follow up with her primary care provider. MDM - Abdominal Pain Lab Data Result diagrams: 05/31/20 02:18 05/31/20 02:18 Labs: Lab Results 05/31/20 05/31/20 05/31/20 Range/Units 01:55 02:18 02:18 WBC 9.6 (4.8-10.8) X10*3/uL RBC 3.30 L (4.20-5.50) X10*6/uL Hgb 8.2 L (12.0-16.0) g/dl Hct 28.2 L (37-47) % MCV 85.5 (80-98) fL MCH 24.8 L (27.0-33.0) pg MCHC 29.1 L (31.0-35.0) g/dl RDW 17.2 H (11.0-16.0) % Plt Count 329 (160-400) X10*3/uL MPV 10.2 (9.4-12.3) fL Immature Gran % (Auto) 0.3 (0.0-0.4) % Neut % (Auto) 80.9 H (45-73) % Lymph % (Auto) 12.3 L (20-40) % [place] % (Auto) 4.2 (2-11) % Eos % (Auto) 1.7 (0-4) % Baso % (Auto) 0.6 (0-2) % Lymph # (Auto) 1.2 (1.2-4.9) X10*3/uL [place] # (Auto) 0.4 (0.1-1.2) X10*3/uL Eos # (Auto) 0.2 (0.0-0.4) X10*3/uL Baso # (Auto) 0.1 (0.0-0.2) X10*3/uL Abs Immat Gran (auto) 0.03 (0.00-0.03) X10*3/uL Absolute Neuts (auto) 7.8 (2.0-8.3) X10*3/uL Absolute Nucleated RBC 0.000 (0.0-0.012) X10*3/uL Nucleated RBC % (auto) 0.0 (0.0-0.2) /100WBC Sodium 141 (135-145) mmol/L Potassium 4.7 (3.3-5.1) mmol/l Chloride 110 H (96-108) mmol/L Carbon Dioxide 17 L (22-29) mmol/L Anion Gap 19 (12-20) BUN 14 (9-16) mg/dL Creatinine 1.88 H (0.5-1.4) mg/dL Estim Creat Clear Calc 37.1 Estimated GFR 30 POC Glucose 238 H (60-115) mg/dL Random Glucose 225 H (60-115) mg/dL Calcium 9.1 D (8.4-10.2) mg/dL Total Bilirubin < 0.2 (0.0-1.0) mg/dL AST 29 D (5-31) U/L ALT 23 (0-31) U/L Alkaline Phosphatase 93 (39-117) U/L Total Protein 7.7 (6.5-8.0) g/dL Albumin 4.4 (3.5-5.0) g/dL Lipase 62 (8-78) U/L Urine Color Urine Appearance Urine pH (5.0-8.0) Ur Specific [place] (1.005-1.025) Urine Protein (NEG-TRACE) MG/DL Urine Glucose (UA) (NEG) MG/DL Urine Ketones (NEG) MG/DL Urine Blood (NEG) Urine Nitrite (NEG) Ur Leukocyte Esterase (NEG) Urine RBC (0) /HPF Urine WBC (0-4) /HPF Ur Squamous Epith Cells /LPF Urine Bacteria /LPF Urine Test (NEGATIVE) 05/31/20 Range/Units 03:45 WBC (4.8-10.8) X10*3/uL RBC (4.20-5.50) X10*6/uL Hgb (12.0-16.0) g/dl Hct (37-47) % MCV (80-98) fL MCH (27.0-33.0) pg MCHC (31.0-35.0) g/dl RDW (11.0-16.0) % Plt Count (160-400) X10*3/uL MPV (9.4-12.3) fL Immature Gran % (Auto) (0.0-0.4) % Neut % (Auto) (45-73) % Lymph % (Auto) (20-40) % [place] % (Auto) (2-11) % Eos % (Auto) (0-4) % Baso % (Auto) (0-2) % Lymph # (Auto) (1.2-4.9) X10*3/uL [place] # (Auto) (0.1-1.2) X10*3/uL Eos # (Auto) (0.0-0.4) X10*3/uL Baso # (Auto) (0.0-0.2) X10*3/uL Abs Immat Gran (auto) (0.00-0.03) X10*3/uL Absolute Neuts (auto) (2.0-8.3) X10*3/uL Absolute Nucleated RBC (0.0-0.012) X10*3/uL Nucleated RBC % (auto) (0.0-0.2) /100WBC Sodium (135-145) mmol/L Potassium (3.3-5.1) mmol/l Chloride (96-108) mmol/L Carbon Dioxide (22-29) mmol/L Anion Gap (12-20) BUN (9-16) mg/dL Creatinine (0.5-1.4) mg/dL Estim Creat Clear Calc Estimated GFR POC Glucose (60-115) mg/dL Random Glucose (60-115) mg/dL Calcium (8.4-10.2) mg/dL Total Bilirubin (0.0-1.0) mg/dL AST (5-31) U/L ALT (0-31) U/L Alkaline Phosphatase (39-117) U/L Total Protein (6.5-8.0) g/dL Albumin (3.5-5.0) g/dL Lipase (8-78) U/L Urine Color COLORLESS Urine Appearance CLEAR Urine pH 7.5 (5.0-8.0) Ur Specific [place] 1.020 (1.005-1.025) Urine Protein TRACE (NEG-TRACE) MG/DL Urine Glucose (UA) 250 H (NEG) MG/DL Urine Ketones NEG (NEG) MG/DL Urine Blood TRACE (NEG) Urine Nitrite NEG (NEG) Ur Leukocyte Esterase NEG (NEG) Urine RBC 0-2 (0) /HPF Urine WBC 0 (0-4) /HPF Ur Squamous Epith Cells TRACE /LPF Urine Bacteria NONE /LPF Urine Test NEGATIVE (NEGATIVE) Discharge Plan Discharge Clinical Impression: Abdominal discomfort Nausea & vomiting Qualifiers: Vomiting type: unspecified Vomiting Intractability: non-intractable Qualified Code(s): R11.2 - Nausea with vomiting, unspecified Patient Disposition: Home, Self-Care Instructions: Acute Nausea and Vomiting (ED), Abdominal Pain (ED) Additional Instructions: 1. Please increase fluid hydration especially with water. 2. Please follow-up with your primary care provider to discuss further steps in controlling possible gastroparesis symptoms. 3. Please do not hesitate to return to the emergency department should you experience any worsening or new symptoms. Prescriptions: No Action acetaminophen [Pain Reliever (acetaminophen)] 325 mg tablet 325 mg PO TID 30 Days Qty: 90 RF: 0 acetaminophen-codeine 300-30 mg tablet 1 tab PO ONCE PRNRF: 0 acetaminophen-codeine 300-30 mg tablet 1 tab PO DAILY PRN (Reason: pain) 10 Days Qty: 10 RF: 1 Hold Instructions: Resume on 04/17/20. gabapentin 100 mg capsule PO RF: 0 metoclopramide HCl [Reglan] 10 mg tablet 10 mg PO Q6H PRN (Reason: nausea and vomiting) Qty: 20 RF: 0 omeprazole 20 mg capsule,delayed release(DR/EC) 20 mg PO DAILY RF: 0 insulin glargine 100 unit/mL (3 mL) insulin pen subcut RF: 0 insulin lispro 100 unit/mL insulin pen subcut RF: 0 lisinopril 5 mg tablet 5 mg PO DAILY RF: 0 ondansetron 4 mg tablet,disintegrating 4 mg PO Q8H PRN (Reason: nausea/vomiting) 30 Days Qty: 90 RF: 1 Hold Instructions: Resume on 04/17/20. Referrals: Dariusz Garcia PA-C [Physician Barrel And Receiver Aligner] - 2 days (Re-evaluation and outpatient management of suspect gastroparesis symptom.) Interventions: ED Discharge Assessment Last Done: 05/31/20 05:10 Discharge Date/Time: 05/31/20 05:14 [facility] Past Medical History Source: nursing notes reviewed Medical History Amput below knee, unilat Anxiety Chronic kidney disease Diabetes Hypertension Surgical History No pertinent past surgical history Family History Family History Father Hyperlipidemia Mother Stomach cancer Sister Diabetes Social History Social History Alcohol intake: unknown Smoking Status: Smoker, status unknown Substance Use Type: Marijuana Advance Directives: No
[2020-05-31 04:22] LABS: Glucose Urine UA 250 MG/DL (NEG); Leukocyte Esterase Urine NEG (NEG); Nitrite Urine NEG (NEG); PH 7.5 (5.0-8.0); Urine Blood TRACE (NEG); Urine Ketones NEG (NEG); Urine Protein TRACE MG/DL (NEG-TRACE)
[2020-05-31 04:30] LABS: Appearance Urine CLEAR; Color Urine COLORLESS
[2020-05-31] MEDS: Acetaminophen 325 MG TABLET 975 MG PO (04:34)
[2020-05-31] MEDS: LORazepam 0.5 MG TABLET 0.25 MG PO (04:34)
--- NOTE | 2020-05-31 04:42 | PC.NURSE ---
Pt tolerating PO challenge, able to hold down water and gingerale. This RN attempting to medicate for pain/anxiety with Tylenol and Ativan. Pt refusing, states I can't take those, I'm nauseated! at bedside discussing plan of care with pt. Pt calling family for a ride home.
[2020-05-31 04:45] VITALS: RESP 24
[2020-05-31 04:52] LABS: RBC Urine 0-2 /HPF (0); Squamous Epithelial Cell Urine TRACE /LPF; UPreg QC Valid YES; Urine Pregnancy NEGATIVE (NEGATIVE); WBC Urine 0 /HPF (0-4)
--- NOTE | 2020-05-31 05:09 | PC.NURSE ---
Pt agreeable to taking meds prior to leaving ED. Pt states her family is coming to pick her up. Pt refusing repeat VS. Pt expresses frustration, states they always give me the Dilaudid shot!!!!!
== END 2020-05-31 05:14 | disposition home or self-care (01) ==
PROVIDERS: Emergency Provider Student in an Organized Health Care Education/Training Program
DX: R11.2 Nausea with vomiting, unspecified (principal); R10.9 Unspecified abdominal pain; I10 Essential (primary) hypertension; E11.9 Type 2 diabetes mellitus without complications; F12.90 Cannabis use, unspecified, uncomplicated; Z79.899 Other long term (current) drug therapy; Z20.822 Contact with and (suspected) exposure to COVID-19
CPT/HCPCS: 36415; 80053; 81001; 81025; 82947; 83690; 85025; 96372; 96374; 96375; 99284; J1200; J1885; J2060; J2765

== ENCOUNTER 2020-06-25 14:00 | Outpatient (RCR) | payer OTHER, SELFPAY ==
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
== END 2020-08-12 15:00 | disposition home or self-care (01) ==
LOC: HO.PT 14:00
PROVIDERS: PCP Physician Assistant; Visit Provider Physician Assistant
DX: S13.4XXD Sprain of ligaments of cervical spine, subsequent encounter (principal); V49.9XXD Car occupant (driver) (passenger) injured in unspecified traffic accident, subsequent encounter
CPT/HCPCS: 97110; 97140; 97161

== ENCOUNTER 2020-07-13 11:30 | Emergency (ER) | payer OTHER, SELFPAY ==
--- NOTE | ~2020-07-13 | XR_ITS ---
EXAMINATION: XR CHEST CLINICAL INFORMATION: Pain COMPARISON: Previous chest x-ray 05/22/2020 TECHNIQUE: Frontal view of the chest was obtained. FINDINGS: The cardiac and mediastinal contours are normal. The lungs are clear. There is no pleural effusion or pneumothorax. There are leads that projects to the left of the upper lumbar spine. Bony structures are otherwise unremarkable. XR/XR chest 1V IMPRESSION: Unremarkable examination.
--- NOTE | ~2020-07-13 | CT_ITS ---
EXAMINATION: CT ABDOMEN AND PELVIS WITHOUT CONTRAST CLINICAL INFORMATION: Abdominal pain COMPARISON: CT scan abdomen pelvis 11/06/2019 TECHNIQUE: Multidetector volumetric imaging was performed from the superior aspect of the liver through the pubic symphysis. Sagittal and coronal reformatted images were obtained on the technologist's workstation. This CT examination was performed using dose optimization techniques as appropriate, variously including the following: *Automated exposure control *Adjustment of mA and/or kV according to patient size (this includes techniques or standardized protocols for targeted exams where dose is matched to indication/reason for exam; i.e. extremities or head) *Use of iterative reconstruction technique DLP: 457 mGy-cm FINDINGS: LUNG BASES: The visualized lung bases are unremarkable. LIVER, GALLBLADDER, AND BILIARY TREE: The liver is normal in size, shape, and attenuation. No focal hepatic lesion or biliary ductal dilatation is present. The gallbladder is unremarkable with no evidence of radiopaque gallstones, gallbladder wall thickening, or obvious pericholecystic inflammatory changes. PANCREAS: Unremarkable. SPLEEN: Unremarkable. ADRENAL GLANDS: Unremarkable. KIDNEYS AND URETERS: The kidneys are normal in size, shape, and attenuation. No hydronephrosis, hydroureter, or calculi seen. No perinephric stranding. BLADDER: Unremarkable. GASTROINTESTINAL TRACT: The small and large bowel are unremarkable. The appendix is unremarkable. ABDOMINAL WALL: Gastric stimulator over the left upper quadrant of abdomen. There is no ventral wall hernia. No inflammation of the abdominal wall. LYMPH NODES: Normal. VASCULAR: Vascular calcifications in renal, mesenteric, iliac and femoral arteries. PELVIC VISCERA: Unremarkable. OSSEOUS STRUCTURES: Unremarkable. CT/CT abdomen pelvis wo con IMPRESSION: There is no acute abnormality the abdomen or pelvis.
--- NOTE | 2020-07-13 12:40 | ECG_ITS ---
Test Reason : cp Blood Pressure : / mmHG Vent. Rate : 095 BPM Atrial Rate : 095 BPM P-R Int : 120 ms QRS Dur : 072 ms QT Int : 364 ms P-R-T Axes : 059 -32 041 degrees QTc Int : 457 ms Artifact in tracing Normal sinus rhythm No overt ST-T changes but due to artifact, cannot assess further When compared with ECG of 22-MAY-2020 16:35, No significant change was found Referred By: Generic ED Physician Electronically Signed By:AGUILA MELO
[2020-07-13 12:41] VITALS: BP 92/56; PULSE 92; RESP 18; TEMP 37.1; O2SAT 100; BMI 24.3
--- NOTE | 2020-07-13 14:49 | ED_ITS ---
HPI - Chest Pain General Chief Complaint: Chest Pain Stated Complaint: chest pain Time Seen by Provider: 07/13/20 14:49 Source: patient Mode of arrival: ambulatory Limitations: no limitations History of Present Illness HPI narrative: 35 yo female with anxiety, chronic abdominal pain, nausea here with 3 days of chest pain and upper abdominal pain hurts to breathe, she is missing her mother's services in [place] (anniversary) complaint: chest pain Timing of current episode: constant Prior episodes: Yes Onset: during rest Pain location: substernal Severity: moderate Quality: sharp Relieving factors: nothing Exacerbating factors: inspiration and eating Associated symptoms: nausea and dyspnea Treatment prior to arrival: none Related Data Home Medications Medication Instructions Recorded Confirmed gabapentin PO 02/15/20 06/08/20 insulin glargine 100 unit/mL (3 unit SUBCUT 04/08/20 06/08/20 mL) subcutaneous pen insulin lispro 100 unit/mL unit SUBCUT 04/08/20 06/08/20 subcutaneous pen lisinopril 5 mg tablet 5 mg PO DAILY 04/08/20 06/08/20 omeprazole 20 mg capsule,delayed 20 mg PO DAILY 04/08/20 06/08/20 release Previous Rx's Medication Instructions Recorded ondansetron 4 mg disintegrating 4 mg PO Q8H PRN 30 Days #90 tab 04/08/20 tablet metoclopramide HCl [Reglan] 10 mg PO Q6H PRN #20 tab 04/10/20 acetaminophen 325 mg tablet 325 mg PO TID 30 Days #90 tab 04/27/20 cyclobenzaprine 10 mg tablet 10 mg PO BEDTIME 20 Days #20 tab 06/04/20 naproxen 500 mg tablet 500 mg PO BID 10 Days #20 tab 06/04/20 acetaminophen 300 mg-codeine 30 mg 1 tab PO DAILY PRN 10 Days #10 tab 07/06/20 tablet lorazepam 0.5 mg tablet 0.5 mg PO DAILY PRN 2 Days #2 tab 07/08/20 Allergies Allergy/AdvReac Type Severity Reaction Status Date / Time morphine [MORPHINE] Allergy Unknown HIVES Verified 07/13/20 12:40 raspberry [Raspberry] Allergy Unknown HIVES Verified 07/13/20 12:40 nitrofurantoin AdvReac Unknown GI side Verified 07/13/20 12:40 [From Macrobid] effects Review of Systems Review of Systems: Constitutional : No Weight loss, No Fever, No Chills ENT/Mouth : No sore throat, No Rhinorrhea Eyes: No Eye Pain, No Swelling Cardiovascular : pos Chest Pain, pos SOB, no Dyspnea on Exertion, No Orthopnea, No Edema, No Palpitations Respiratory : No Cough, No Sputum Gastrointestinal : pos Nausea, No Vomiting, No Diarrhea, No abdominal Pain, No Hematochezia, No Melena Genitourinary : No Dysuria, No Urinary Frequency Musculoskeletal : No joint pain, No Myalgias, No Joint Swelling Skin : No Skin Lesions, No rash Neuro : No Weakness, No Numbness, No Dizziness, No Headache Psych : pos Anxiety/Panic, No Depression Heme/Lymph: No Bruising, No Lymphadenopathy Endocrine : No Polyuria, No Polydipsia All other systems reviewed and are negative [facility] Past Medical History Attestation statement: The following information was validated with the patient. Medical History Amput below knee, unilat Anxiety Chronic kidney disease Diabetes Hypertension Surgical History No pertinent past surgical history Family History Family History Father Hyperlipidemia Mother Stomach cancer Sister Diabetes Social History Social History Alcohol intake: never Smoking Status: Never smoker Use of substances other than those prescribed or required for medical reasons: No Substance Use Type: Marijuana Advance Directives: Yes Advance Directives Information Provided: Yes Advance Directives on File: No Physical Exam Vital Signs: Vital Signs: Last Vital Signs Temp 98.9 F 07/13/20 16:29 Pulse 102 H 07/13/20 16:29 Resp 18 07/13/20 16:29 BP 87/45 L 07/13/20 16:29 Pulse Ox 97 07/13/20 16:29 Body Mass Index 24.3 Appearance: Alert. Oriented X3. No acute distress. Anxious Eyes: Pupils equal, round and reactive to light. ENT: Pharynx normal. Neck: Normal inspection. Neck supple. CVS: Normal heart rate and rhythm. Pulses normal. Respiratory: No respiratory distress. Breath sounds normal. Abdomen: Soft and mild epigastric ttp Skin: Skin warm and dry. Normal skin color. Normal skin turgor. Extremities: No lower extremity edema. No calf ttp Neuro: Oriented X 3. No motor deficit. No sensory deficit. Course Course Course Narrative: signed out to Dr. Vazquez pending workup hypotension due to medications and not infection or severe sepsis MDM - Chest Pain MDM Narrative Medical decision making narrative: 35 yo female with CKD, anxiety, chronic abdominal pain here with chest pain and abdominal pain that is pleuritic in nature at this time will need labs, EKG, CXR, VQ scan to r/o PE as well as CT abdomen to r/o mass/obstruction ECG Data ECG #1: Attestation: I personally reviewed and interpreted this ECG as follows: ECG interpretation date: 07/13/20 ECG interpretation time: 16:16 Interpretation: Rate: 94 Rhythm: NSR [place]: Normal P waves. Normal SANDIP. Normal QRS complex. ST T wave : artifact but no LEIDY, nonsepcific qTC: normal prior studies: no acute ischemia The study has been interpreted contemporaneously by me. . Discharge Plan Discharge Clinical Impression: Chest pain Qualifiers: Chest pain type: chest pain on breathing Qualified Code(s): R07.1 - Chest pain on breathing Prescriptions: No Action acetaminophen [Pain Reliever (acetaminophen)] 325 mg tablet 325 mg PO TID 30 Days Qty: 90 RF: 0 acetaminophen-codeine 300-30 mg tablet 1 tab PO DAILY PRN (Reason: pain) 10 Days Qty: 10 RF: 0 Hold Instructions: Resume on 04/17/20. lorazepam 0.5 mg tablet 0.5 mg PO DAILY PRN (Reason: anxiety) 2 Days Qty: 2 RF: 0 gabapentin 100 mg capsule PO RF: 0 metoclopramide HCl [Reglan] 10 mg tablet 10 mg PO Q6H PRN (Reason: nausea and vomiting) Qty: 20 RF: 0 omeprazole 20 mg capsule,delayed release(DR/EC) 20 mg PO DAILY RF: 0 insulin glargine 100 unit/mL (3 mL) insulin pen subcut RF: 0 insulin lispro 100 unit/mL insulin pen subcut RF: 0 lisinopril 5 mg tablet 5 mg PO DAILY RF: 0 ondansetron 4 mg tablet,disintegrating 4 mg PO Q8H PRN (Reason: nausea/vomiting) 30 Days Qty: 90 RF: 1 Hold Instructions: Resume on 04/17/20. cyclobenzaprine 10 mg tablet 10 mg PO BEDTIME 20 Days Qty: 20 RF: 0 naproxen 500 mg tablet 500 mg PO BID 10 Days Qty: 20 RF: 0
[2020-07-13] MEDS: ondansetron HCL 4 MG/2 ML VIAL IVPUSH (15:41)
[2020-07-13] MEDS: HYDROmorphone HCl 0.5 MG/0.5 ML SYRINGE IVPUSH (15:41)
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
[2020-07-13 16:29] VITALS: BP 87/45; PULSE 102; RESP 18; TEMP 37.2; O2SAT 97
[2020-07-13] MEDS: 0.9 % Sodium Chloride 500 ML IV (16:49)
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
== END 2020-07-13 19:16 | disposition left against medical advice (07) ==
PROVIDERS: Emergency Provider Emergency Medicine; PCP Physician Assistant
DX: R07.1 Chest pain on breathing (principal); E11.22 Type 2 diabetes mellitus with diabetic chronic kidney disease; I12.9 Hypertensive chronic kidney disease with stage 1 through stage 4 chronic kidney disease, or unspecified chronic kidney disease; N18.9 Chronic kidney disease, unspecified; Z89.519 Acquired absence of unspecified leg below knee; Z79.4 Long term (current) use of insulin; Z79.899 Other long term (current) drug therapy
CPT/HCPCS: 71045; 74176; 93005; 96361; 96374; 96375; 99284; J1170; J2405

== ENCOUNTER 2020-09-09 09:31 | Emergency (ER) | payer OTHER, SELFPAY ==
[2020-09-09 09:45] VITALS: BP 98/63; PULSE 100; RESP 20; TEMP 36.7; O2SAT 99; BMI 24.3
--- NOTE | 2020-09-09 11:30 | ED.GENADULT ---
HPI - General Adult General Chief complaint: General Medical Stated complaint: abd pain Time Seen by Provider: 09/09/20 11:19 Source: patient Mode of arrival: ambulatory Limitations: no limitations History of Present Illness HPI narrative: 35-year-old female who presents emergency department for evaluation of vomiting and abdominal pain. The patient states that 4 days prior to evaluation she developed abdominal pain. She runs her hand down the center of her chest and abdomen when asked to localize the pain. She states the pain is a constant, burning sensation which is 10/10 at its worst. She states the pain is got progressively worse to the point where she cannot tolerated at home. She is also complaining of vomiting x3 days. She states that she has not been able to hold down any food or fluid. She states she has had similar presentations in the past secondary to her gastroparesis. She states she has an implanted gastric stimulator for her gastroparesis. She denies any other abdominal surgeries. She denied fever, chills, chest pain, shortness of breath, dyspnea on exertion, cough. She does complain of diffuse myalgias. Patient states that she has been exposed to several people that have recently tested positive for COVID-19. She states that she has not had a COVID-19 infection and has not been vaccinated for COVID-19. Related Data Home Medications Medication Instructions Recorded Confirmed gabapentin PO 02/15/20 07/27/20 insulin glargine 100 unit/mL (3 unit SUBCUT 04/08/20 07/27/20 mL) subcutaneous pen insulin lispro 100 unit/mL unit SUBCUT 04/08/20 07/27/20 subcutaneous pen lisinopril 5 mg tablet 5 mg PO DAILY 04/08/20 07/27/20 omeprazole 20 mg capsule,delayed 20 mg PO DAILY 04/08/20 07/27/20 release Previous Rx's Medication Instructions Recorded ondansetron 4 mg disintegrating 4 mg PO Q8H PRN 30 Days #90 tab 04/08/20 tablet metoclopramide HCl [Reglan] 10 mg PO Q6H PRN #20 tab 04/10/20 acetaminophen 325 mg tablet 325 mg PO TID 30 Days #90 tab 04/27/20 cyclobenzaprine 10 mg tablet 10 mg PO BEDTIME 20 Days #20 tab 06/04/20 naproxen 500 mg tablet 500 mg PO BID 10 Days #20 tab 06/04/20 lorazepam 0.5 mg tablet 0.5 mg PO DAILY PRN 2 Days #2 tab 07/08/20 insulin lispro 100 unit/mL 5 unit SUBCUT TID 30 Days #15 ml 07/27/20 subcutaneous pen acetaminophen 300 mg-codeine 30 mg 1 tab PO DAILY PRN 15 Days #15 tab 09/03/20 tablet Allergies Allergy/AdvReac Type Severity Reaction Status Date / Time morphine [MORPHINE] Allergy Unknown HIVES Verified 07/27/20 15:10 raspberry [Raspberry] Allergy Unknown HIVES Verified 07/27/20 15:10 nitrofurantoin AdvReac Unknown GI side Verified 07/27/20 15:10 [From Macrobid] effects Review of Systems Review of Systems: Yes all other systems are reviewed and are negative [facility] Past Medical History [facility] Narrative: Past medical history significant for diabetes, chronic kidney disease, chronic abdominal pain, hypertension, anxiety, gastroparesis, surgical history right BKA, implanted gastric stimulator. She denies tobacco, alcohol and drug use. Medical History Amput below knee, unilat Anxiety Chronic kidney disease Diabetes Hypertension Surgical History No pertinent past surgical history Family History Family History Father Hyperlipidemia Mother Stomach cancer Sister Diabetes Social History Social History Alcohol intake: never Smoking Status: Never smoker Substance Use Type: Marijuana Advance Directives: No Advance Directives Information Provided: No Physical Exam Vital Signs: Vital Signs: Last Vital Signs Temp 98.0 F 09/09/20 13:20 Pulse 70 09/09/20 13:20 Resp 16 09/09/20 13:20 BP 101/47 L 09/09/20 13:20 Pulse Ox 94 09/09/20 13:20 Body Mass Index 24.3 Const: General: cooperative and in distress (Moderate, secondary to abdominal pain) Orientation/consciousness: oriented to person and oriented to place Limitations: no limitations HENMT: Head: Yes normal to inspection, Yes normocephalic and Yes atraumatic Ears: external ears normal General nose exam: Normal external nose present Face and sinus: Yes normal facial exam Mouth: Normal oral and palatal mucosa present Throat: Yes posterior oropharynx normal Eyes: Periorbital: periorbital findings normal Eyelids: Yes eyelids normal Conjunctivae: conjunctivae normal Sclerae: sclerae normal Corneas: corneas normal Pupils: Equal, round and reactive pupils present Direct Ophthalmoscopy: normal light reflex Neck: Neck: Yes full ROM, Yes no lymphadenopathy, Yes no meningeal signs, Yes trachea midline and Yes supple Chest: Chest palpation & inspection: normal inspection of the chest and tenderness (Moderate left anterior chest) Resp: Effort & Inspection: normal respiratory effort and able to speak in complete sentences Auscultation: clear to auscultation bilaterally Cardio: Rate: regular rate Rhythm: regular rhythm Heart sounds: S1 normal heart sound present, S2 normal heart sound present and no murmurs GI: Inspection: Yes normal to inspection Palpation (GI): Soft to palpation, Tenderness to palpation present (GI) (Moderate, diffuse tenderness), no guarding, not rigid and No hepatosplenomegaly present : General: Yes no CVA tenderness Back/Spine/Pelvis: Back: no CVA tenderness Cervical Spine: normal cervical lordosis Thoracic/Lumbar Spine: thoracic and lumbar spine normal to inspection Skin: Lesions: no lesions Rashes: no rashes Wounds: no wounds Neuro: General: oriented to person, oriented to place and no meningeal signs Cranial nerves: Yes CN's II-XII intact bilaterally and Yes Equal, round and reactive pupils present Cognition (Neuro): normal cognition Motor exam (neuro): 5/5 motor strength present throughout Extrem: General: Yes normal to inspection and Yes full ROM Psych: Appearance: well kempt Mental Status: mental status grossly normal Speech and movement: Normal speech and movement present Affect: normal affect Attitude: cooperative Thought process: Normal thought process present Thought content: Normal thought content present Course Course Course Narrative: 35-year-old female who presents emergency department for evaluation of 4 days of abdominal pain, nausea and vomiting. Vital signs are stable. Physical examination revealed that she was in moderate distress secondary to her abdominal pain. She did have left-sided chest wall tenderness and diffuse abdominal tenderness. The impression is that the patient's symptoms are consistent with her gastroparesis. I did order laboratory evaluation to include CBC, CMP, lipase, urine test, COVID-19. Her symptoms were treated with Reglan 10 mg IV, Benadryl 50 mg IV and Dilaudid 1 mg IV. She was also ordered to get normal saline IV x1 L. 1558: The patient required tumor dose of Dilaudid 1 mg IV and a dose of Zofran 4 mg IV for her nausea and pain. Laboratory evaluation revealed chronic anemia with an H&H of 8.7 and 28.8. The patient had an elevation in BUN and creatinine of 23 and 2.21, she received x1 L. her lipase was elevated at 203, this was not greater than 4 times normal. I do not think that she has acute pancreatitis. COVID-19 was negative. Patient will be discharged home, she was advised to follow-up with her PCP for further evaluation. Her presentation is consistent with her gastroparesis. Medical Decision Making Lab Data Result diagrams: 09/09/20 12:13 09/09/20 13:36 Labs: Lab Results 09/09/20 09/09/20 09/09/20 Range/Units 12:13 12:13 12:13 WBC 8.7 (4.8-10.8) X10*3/uL RBC 3.63 L (4.20-5.50) X10*6/uL Hgb 8.7 L (12.0-16.0) g/dl Hct 28.8 L (37-47) % MCV 79.3 L (80-98) fL MCH 24.0 L (27.0-33.0) pg MCHC 30.2 L (31.0-35.0) g/dl RDW 17.9 H (11.0-16.0) % Plt Count 462 H D (160-400) X10*3/uL MPV 9.1 L (9.4-12.3) fL Immature Gran % (Auto) 0.2 (0.0-0.4) % Neut % (Auto) 70.3 (45-73) % Lymph % (Auto) 19.7 L (20-40) % [place] % (Auto) 8.5 (2-11) % Eos % (Auto) 0.6 (0-4) % Baso % (Auto) 0.7 (0-2) % Lymph # (Auto) 1.7 (1.2-4.9) X10*3/uL [place] # (Auto) 0.7 (0.1-1.2) X10*3/uL Eos # (Auto) 0.1 (0.0-0.4) X10*3/uL Baso # (Auto) 0.1 (0.0-0.2) X10*3/uL Abs Immat Gran (auto) 0.02 (0.00-0.03) X10*3/uL Absolute Neuts (auto) 6.1 (2.0-8.3) X10*3/uL Absolute Nucleated RBC 0.000 (0.0-0.012) X10*3/uL Nucleated RBC % (auto) 0.0 (0.0-0.2) /100WBC Sodium (135-145) mmol/L Potassium (3.3-5.1) mmol/L Chloride (96-108) mmol/L Carbon Dioxide (22-29) mmol/L Anion Gap (12-20) BUN (9-16) mg/dL Creatinine (0.5-1.4) mg/dL Estim Creat Clear Calc Estimated GFR Random Glucose (60-115) mg/dL Calcium (8.4-10.2) mg/dL Total Bilirubin (0.0-1.0) mg/dL AST (5-31) U/L ALT (0-31) U/L Alkaline Phosphatase (39-117) U/L Total Protein (6.5-8.0) g/dL Albumin (3.5-5.0) g/dL Lipase Cancelled COVID-19 ([facility]) Negative (Negative) COVID-19 Clin Com See Note 09/09/20 Range/Units 13:36 WBC (4.8-10.8) X10*3/uL RBC (4.20-5.50) X10*6/uL Hgb (12.0-16.0) g/dl Hct (37-47) % MCV (80-98) fL MCH (27.0-33.0) pg MCHC (31.0-35.0) g/dl RDW (11.0-16.0) % Plt Count (160-400) X10*3/uL MPV (9.4-12.3) fL Immature Gran % (Auto) (0.0-0.4) % Neut % (Auto) (45-73) % Lymph % (Auto) (20-40) % [place] % (Auto) (2-11) % Eos % (Auto) (0-4) % Baso % (Auto) (0-2) % Lymph # (Auto) (1.2-4.9) X10*3/uL [place] # (Auto) (0.1-1.2) X10*3/uL Eos # (Auto) (0.0-0.4) X10*3/uL Baso # (Auto) (0.0-0.2) X10*3/uL Abs Immat Gran (auto) (0.00-0.03) X10*3/uL Absolute Neuts (auto) (2.0-8.3) X10*3/uL Absolute Nucleated RBC (0.0-0.012) X10*3/uL Nucleated RBC % (auto) (0.0-0.2) /100WBC Sodium 136 (135-145) mmol/L Potassium 3.4 (3.3-5.1) mmol/L Chloride 98 (96-108) mmol/L Carbon Dioxide 27 (22-29) mmol/L Anion Gap 14 (12-20) BUN 23 H D (9-16) mg/dL Creatinine 2.21 H (0.5-1.4) mg/dL Estim Creat Clear Calc 35.4 Estimated GFR 25 Random Glucose 115 D (60-115) mg/dL Calcium 8.9 (8.4-10.2) mg/dL Total Bilirubin 0.2 (0.0-1.0) mg/dL AST 17 D (5-31) U/L ALT 11 (0-31) U/L Alkaline Phosphatase 98 (39-117) U/L Total Protein 7.6 (6.5-8.0) g/dL Albumin 4.2 (3.5-5.0) g/dL Lipase 203 H COVID-19 ([facility]) (Negative) COVID-19 Clin Com Discharge Plan Discharge Clinical Impression: 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 Follow-up with your doctor in 2 days. Please return to the emergency department if your symptoms get worse or if you develop any symptoms that are concerning to you. Prescriptions: No Action acetaminophen [Pain Reliever (acetaminophen)] 325 mg tablet 325 mg PO TID 30 Days Qty: 90 RF: 0 lorazepam 0.5 mg tablet 0.5 mg PO DAILY PRN (Reason: anxiety) 2 Days Qty: 2 RF: 0 acetaminophen-codeine 300-30 mg tablet 1 tab PO DAILY PRN (Reason: pain) 15 Days Qty: 15 RF: 0 Hold Instructions: Resume on 04/17/20. gabapentin 100 mg capsule PO RF: 0 metoclopramide HCl [Reglan] 10 mg tablet 10 mg PO Q6H PRN (Reason: nausea and vomiting) Qty: 20 RF: 0 omeprazole 20 mg capsule,delayed release(DR/EC) 20 mg PO DAILY RF: 0 insulin glargine 100 unit/mL (3 mL) insulin pen subcut RF: 0 insulin lispro 100 unit/mL insulin pen subcut RF: 0 lisinopril 5 mg tablet 5 mg PO DAILY RF: 0 ondansetron 4 mg tablet,disintegrating 4 mg PO Q8H PRN (Reason: nausea/vomiting) 30 Days Qty: 90 RF: 1 Hold Instructions: Resume on 04/17/20. cyclobenzaprine 10 mg tablet 10 mg PO BEDTIME 20 Days Qty: 20 RF: 0 naproxen 500 mg tablet 500 mg PO BID 10 Days Qty: 20 RF: 0 insulin lispro [Humalog KwikPen Insulin] 100 unit/mL insulin pen 5 unit subcut TID 30 Days Qty: 15 RF: 2
[2020-09-09 12:00] VITALS: BP 114/78; PULSE 111; RESP 18; O2SAT 100
[2020-09-09] MEDS: HYDROmorphone HCl 1 MG/ML SYRINGE IVPUSH ×3 (12:13→16:03)
[2020-09-09] MEDS: diphenhydrAMINE HCL 50 MG/ML VIAL IVPUSH (12:13)
[2020-09-09] MEDS: Metoclopramide HCl 10 MG/2 ML VIAL IVPUSH (12:13)
[2020-09-09] MEDS: 0.9 % Sodium Chloride 1,000 ML 999 ML IV (12:14)
[2020-09-09 12:19] LABS: MANUAL DIFF FLAG NO
[2020-09-09 12:25] LABS: Basophils Absolute Auto 0.1 X10*3/uL (0.0-0.2); Basophils Percent Auto 0.7 % (0-2); Eosinophils Absolute Auto 0.1 X10*3/uL (0.0-0.4); Eosinophils Percent Auto 0.6 % (0-4); Hematocrit 28.8 % (37-47); Hemoglobin 8.7 g/dl (12.0-16.0); Imm Gran Abs Auto 0.02 X10*3/uL (0.00-0.03); Imm Gran Pct Auto 0.2 % (0.0-0.4); Lymphocytes Absolute Auto 1.7 X10*3/uL (1.2-4.9); Lymphocytes Percent Auto 19.7 % (20-40); Mean Corpuscular HGB Conc 30.2 g/dl (31.0-35.0); Mean Corpuscular Volume 79.3 fL (80-98); Mean Platelet Volume 9.1 fL (9.4-12.3); Monocytes Absolute Auto 0.7 X10*3/uL (0.1-1.2); Monocytes Percent Auto 8.5 % (2-11); Neutrophils Absolute Auto 6.1 X10*3/uL (2.0-8.3); Neutrophils Percent Auto 70.3 % (45-73); Platelet Count 462 X10*3/uL (160-400); Red Blood Count 3.63 X10*6/uL (4.20-5.50); Red Cell Distribution Width 17.9 % (11.0-16.0); White Blood Count 8.7 X10*3/uL (4.8-10.8)
[2020-09-09 12:50] LABS: COVID-19 Test Negative (Negative); IDNOW Serial# 9DD0AD1C
[2020-09-09 13:20] VITALS: BP 101/47; PULSE 70; RESP 16; TEMP 36.7; O2SAT 94
[2020-09-09 14:12] LABS: Alanine Aminotransferase 11 U/L (0-31); Albumin Level 4.2 g/dL (3.5-5.0); Alkaline Phosphatase 98 U/L (39-117); Anion Gap 14 (12-20); Aspartate Amino Transferase 17 U/L (5-31); Bilirubin Total 0.2 mg/dL (0.0-1.0); Blood Urea Nitrogen 23 mg/dL (9-16); Calcium 8.9 mg/dL (8.4-10.2); Carbon Dioxide 27 mmol/L (22-29); Chloride 98 mmol/L (96-108); Creatinine Clr Calc Pharmacy 35.4; Estimated Glomerular Filt Rate 25; Glucose Random 115 mg/dL (60-115); Potassium 3.4 mmol/L (3.3-5.1); Sodium 136 mmol/L (135-145); Total Protein 7.6 g/dL (6.5-8.0)
[2020-09-09 14:24] LABS: Lipase 203 U/L (8-78)
[2020-09-09] MEDS: ondansetron HCL 4 MG/2 ML VIAL IVPUSH (16:03)
== END 2020-09-09 16:00 | disposition home or self-care (01) ==
PROVIDERS: Emergency Provider Emergency Medicine Emergency Medical Services; PCP Physician Assistant
DX: K31.84 Gastroparesis (principal); E11.43 Type 2 diabetes mellitus with diabetic autonomic (poly)neuropathy; E86.0 Dehydration; R10.84 Generalized abdominal pain; F12.90 Cannabis use, unspecified, uncomplicated; Z20.822 Contact with and (suspected) exposure to COVID-19; Z79.4 Long term (current) use of insulin; Z79.899 Other long term (current) drug therapy
CPT/HCPCS: 36415; 80053; 83690; 85025; 87635; 96365; 96375; 96376; 99284; J1170; J1200; J2405; J2765

== ENCOUNTER 2020-10-11 01:18 | Emergency (ER) | payer OTHER, SELFPAY ==
[2020-10-11] VITALS (8 sets, daily range): BP systolic 100–169; BP diastolic 61–89; PULSE 72–97; RESP 14–24; TEMP 36.8–37.4; O2SAT 97–100; BMI 25.6
[2020-10-11] MEDS: ondansetron HCL 4 MG/2 ML VIAL IVPUSH (02:00)
[2020-10-11] MEDS: HYDROmorphone HCl 1 MG/ML SYRINGE IVPUSH (02:00)
[2020-10-11 02:10] LABS: Urine Pregnancy NEGATIVE (NEGATIVE)
[2020-10-11 02:11] LABS: Glucose Urine UA NEG (NEG); Leukocyte Esterase Urine NEG (NEG); Nitrite Urine NEG (NEG); UPreg QC Valid YES; Urine Blood 3+ (NEG); Urine Ketones NEG (NEG); Urine Protein 2+ MG/DL (NEG-TRACE)
[2020-10-11 02:13] LABS: Appearance Urine HAZY; Color Urine YELLOW
[2020-10-11 02:18] LABS: Bacteria Urine 1+ /LPF; Squamous Epithelial Cell Urine 1+ /LPF
[2020-10-11 02:30] LABS: Amphetamine Screen Urine Not Detected (Not Detect); Barbiturates, Urine Not Detected (Not Detect); Benzodiazepines Screen Urine Not Detected (Not Detect); Cannabinoid Screen Urine POSITIVE (Not Detect); Cocaine Screen Urine Not Detected (Not Detect); Opiate Screen Urine POSITIVE (Not Detect); Phencyclidine Screen Urine Not Detected (Not Detect)
--- NOTE | 2020-10-11 02:32 | ED.ABDPAIN ---
HPI - Abdominal Pain General Chief Complaint: Abdominal Pain Stated Complaint: abdominal pain Time Seen by Provider: 10/11/20 01:47 Source: patient Mode of arrival: ambulatory Limitations: no limitations History of Present Illness HPI narrative: 34-year-old female came in for evaluation of acute on chronic abdominal pain and anxiety. This is a 35-year-old female with multiple ED visits for similar presentation of chronic abdominal pain that usually trigger her anxiety, patient stated pain is started yesterday, similar to her previous pain, described it as diffuse, pain is intermittent, when it comes it is severe /, pain is burning sensation inside her belly, pain is usually associated with nausea and vomiting, no diarrhea, last normal bowel movement with this a.m., patient had multiple CT of the abdomen and pelvis in the past. Related Data Home Medications Medication Instructions Recorded Confirmed gabapentin PO 02/15/20 07/27/20 insulin glargine 100 unit/mL (3 unit SUBCUT 04/08/20 07/27/20 mL) subcutaneous pen insulin lispro 100 unit/mL unit SUBCUT 04/08/20 07/27/20 subcutaneous pen lisinopril 5 mg tablet 5 mg PO DAILY 04/08/20 07/27/20 omeprazole 20 mg capsule,delayed 20 mg PO DAILY 04/08/20 07/27/20 release Previous Rx's Medication Instructions Recorded ondansetron 4 mg disintegrating 4 mg PO Q8H PRN 30 Days #90 tab 04/08/20 tablet metoclopramide HCl [Reglan] 10 mg PO Q6H PRN #20 tab 04/10/20 acetaminophen 325 mg tablet 325 mg PO TID 30 Days #90 tab 04/27/20 cyclobenzaprine 10 mg tablet 10 mg PO BEDTIME 20 Days #20 tab 06/04/20 naproxen 500 mg tablet 500 mg PO BID 10 Days #20 tab 06/04/20 lorazepam 0.5 mg tablet 0.5 mg PO DAILY PRN 2 Days #2 tab 07/08/20 insulin lispro 100 unit/mL 5 unit SUBCUT TID 30 Days #15 ml 07/27/20 subcutaneous pen miscellaneous medical supply 1 ea MISCELLANEOUS DAILY 99 Days 09/15/20 #2 ea acetaminophen 300 mg-codeine 30 mg 1 tab PO DAILY 15 Days #15 tab 10/01/20 tablet Allergies Allergy/AdvReac Type Severity Reaction Status Date / Time morphine [MORPHINE] Allergy Unknown HIVES Verified 10/11/20 01:24 raspberry [Raspberry] Allergy Unknown HIVES Verified 10/11/20 01:24 nitrofurantoin AdvReac Unknown GI side Verified 10/11/20 01:24 [From Macrobid] effects Review of Systems Review of Systems All other systems are reviewed and are negative Constitutional: Reports as per HPI and Reports no additional constitutional complaints Eyes: Reports as per HPI and Reports no additional eye complaints Reports system reviewed and no additional complaints, except as documented Cardiovascular: Reports as per HPI and Reports no additional cardiovascular complaints Respiratory: Reports as per HPI and Reports no additional respiratory complaints Gastrointestinal: Reports as per HPI and Reports no additional gastrointestinal complaints Genitourinary: Reports no additional female genitourinary complaints Musculoskeletal: Reports no additional musculoskeletal complaints Skin/Breast: Reports system reviewed and no additional complaints, except as docu Psychiatric: Reports no additional psychiatric complaints Endocrine: Reports no additional endocrine complaints Hematologic/Lymphatic: Reports no additional hematologic/lymphatic complaints Allergic/Immunologic: Reports no additional allergic/immunologic complaints Reports system reviewed and no additional complaints, except as documented and Reports Abnormal speech present Physical Exam Vital Signs: Vital Signs: Last Vital Signs Temp 98.3 F 10/11/20 02:00 Pulse 72 10/11/20 05:57 Resp 15 10/11/20 05:57 BP 100/61 10/11/20 05:57 Pulse Ox 98 10/11/20 05:57 Body Mass Index 25.6 Vital signs have been reviewed as appeared to be correct. Blood pressure normal. Heart rate normal. Respiration rate normal. Temperature normal. Oxygen saturation normal. Appearance: Alert. Oriented X3. No acute distress. Appear very anxious. Head: Normal external exam. Normocephalic. Atraumatic. No Meyers signs noted. No raccoon eyes noted Eyes: PERRLA. EOMI. Conjunctiva and sclera normal. Eyelids normal. ENT: TM's Normal. Pharynx normal. Uvula midline. Moist mucous membranes. No trismus noted. No drooling noted. No muffled voice noted. Neck: Normal inspection. Neck supple. FROM. No adenopathy. Thyroid Normal. No meningeal signs. No neck mass noted. CVS: Normal heart rate and rhythm. Heart sound normal. No murmurs noted. Pulses normal throughout. Respiratory: No respiratory distress. Painless inspiration. Breath sounds normal. No wheezes/rales/rhonchi noted. Chest nontender. No accessory muscle usage noted or decreased air movement noted. Abdomen: Soft and nontender. Bowel sounds normal in all 4 quadrants. No distention noted. No organomegaly noted. No visible injury noted. Back: No CVA tenderness. Full range of motion noted. Skin: Skin warm and dry. Normal skin color. Normal skin turgor. No rashes/lesions/lacerations noted. Extremities: No lower extremity edema. Extremities exhibit normal range of motion. Extremities nontender. Neuro: Oriented X 3. No motor deficit. No sensory deficit. Reflexes normal. Course Course Course Narrative: Assessment and plan. 35-year-old with history of chronic abdominal pain/anxiety. Came in last night with severe anxiety triggered by abdominal pain secondary to chronic gastroparesis. Patient received Haldol 5 mg/Ativan 2 mg, patient was more relaxed, patient is sleeping very comfortably. UA is unremarkable, physical exam is unchanged and patient is well-known to our ED staff and myself patient is acting at her normal baseline. When patient awake can be re-evaluated. Reevaluation(s) Reevaluation #1: Physician observation started at 03:00 . Patient placed in physician observation because the patient needed more time for medication to work and to be re-evaluated, patient's vital sign were stable, sleeping will defer physical exam when she is awake. Time: 03:00 MDM - Abdominal Pain Lab Data Attestation: I reviewed the patient's lab results. Labs: Lab Results 10/11/20 10/11/20 10/11/20 Range/Units 01:59 01:59 01:59 Urine Color YELLOW Urine Appearance HAZY Urine pH 7.0 (5.0-8.0) Ur Specific [place] 1.010 (1.005-1.025) Urine Protein 2+ H (NEG-TRACE) MG/DL Urine Glucose (UA) NEG (NEG) MG/DL Urine Ketones NEG (NEG) MG/DL Urine Blood 3+ H (NEG) Urine Nitrite NEG (NEG) Ur Leukocyte Esterase NEG (NEG) Urine RBC 1-4 (0) /HPF Urine WBC 1-4 (0-4) /HPF Ur Squamous Epith Cells 1+ /LPF Urine Bacteria 1+ /LPF Hyaline Casts 1-4 /LPF Urine Test NEGATIVE (NEGATIVE) Urine Opiates Screen POSITIVE H (Not Detect) Ur Barbiturates Screen Not Detected (Not Detect) Ur Phencyclidine Scrn Not Detected (Not Detect) Ur Amphetamines Screen Not Detected (Not Detect) U Benzodiazepines Scrn Not Detected (Not Detect) Urine Cocaine Screen Not Detected (Not Detect) U Marijuana (THC) Screen POSITIVE H (Not Detect) Discharge Plan Discharge Clinical Impression: Anxiety, Abdominal pain, chronic, generalized Instructions: Anxiety (ED) Prescriptions: No Action acetaminophen [Pain Reliever (acetaminophen)] 325 mg tablet 325 mg PO TID 30 Days Qty: 90 RF: 0 lorazepam 0.5 mg tablet 0.5 mg PO DAILY PRN (Reason: anxiety) 2 Days Qty: 2 RF: 0 miscellaneous medical supply Misc 1 ea miscellaneous DAILY 99 Days Qty: 2 RF: 0 acetaminophen-codeine 300-30 mg tablet 1 tab PO DAILY 15 Days Qty: 15 RF: 1 Hold Instructions: Resume on 04/17/20. gabapentin 100 mg capsule PO RF: 0 metoclopramide HCl [Reglan] 10 mg tablet 10 mg PO Q6H PRN (Reason: nausea and vomiting) Qty: 20 RF: 0 omeprazole 20 mg capsule,delayed release(DR/EC) 20 mg PO DAILY RF: 0 insulin glargine 100 unit/mL (3 mL) insulin pen subcut RF: 0 insulin lispro 100 unit/mL insulin pen subcut RF: 0 lisinopril 5 mg tablet 5 mg PO DAILY RF: 0 ondansetron 4 mg tablet,disintegrating 4 mg PO Q8H PRN (Reason: nausea/vomiting) 30 Days Qty: 90 RF: 1 Hold Instructions: Resume on 04/17/20. cyclobenzaprine 10 mg tablet 10 mg PO BEDTIME 20 Days Qty: 20 RF: 0 naproxen 500 mg tablet 500 mg PO BID 10 Days Qty: 20 RF: 0 insulin lispro [Humalog KwikPen Insulin] 100 unit/mL insulin pen 5 unit subcut TID 30 Days Qty: 15 RF: 2 Referrals: Physician,Unknown [Primary Care Provider] - 2 days [facility] Past Medical History Medical History Amput below knee, unilat Anxiety Chronic kidney disease Diabetes Hypertension Surgical History No pertinent past surgical history Family History Family History Father Hyperlipidemia Mother Stomach cancer Sister Diabetes Social History Social History Alcohol intake: never Patient Tobacco Use Status: Current everyday Tobacco user Use of substances other than those prescribed or required for medical reasons: Yes Substance Use Type: Marijuana Advance Directives: No Patient : No
[2020-10-11] MEDS: diphenhydrAMINE HCL 50 MG/ML VIAL 25 MG IVPUSH (02:45)
[2020-10-11] MEDS: LORazepam 2 MG/ML VIAL IVPUSH (02:45)
[2020-10-11] MEDS: Haloperidol Lactate 5 MG/ML VIAL IVPUSH (02:45)
--- NOTE | 2020-10-11 09:46 | PC.NURSE ---
PT C/O TO SLEEP RESP EVEN AND UNLABORED.
== END 2020-10-11 11:13 | disposition home or self-care (01) ==
PROVIDERS: Emergency Medicine; Emergency Provider Emergency Medicine Emergency Medical Services
DX: G89.29 Other chronic pain (principal); R10.84 Generalized abdominal pain; F41.9 Anxiety disorder, unspecified; E10.22 Type 1 diabetes mellitus with diabetic chronic kidney disease; I12.9 Hypertensive chronic kidney disease with stage 1 through stage 4 chronic kidney disease, or unspecified chronic kidney disease; N18.9 Chronic kidney disease, unspecified; F12.90 Cannabis use, unspecified, uncomplicated; Z79.4 Long term (current) use of insulin; Z79.899 Other long term (current) drug therapy
CPT/HCPCS: 80307; 81001; 81025; 96374; 96375; 99285; J1170; J1200; J2060; J2405

== ENCOUNTER 2020-10-12 10:16 | Emergency (ER) | payer OTHER, SELFPAY ==
[2020-10-12 10:19] VITALS: BP 115/79; PULSE 112; RESP 16; TEMP 36.3; O2SAT 96; BMI 24.0
[2020-10-12 11:55] LABS: Glucose, Whole Blood 255 mg/dL (60-115)
--- NOTE | 2020-10-12 12:39 | ED.GENADULT ---
HPI - General Adult General Chief complaint: General Medical Stated complaint: BODY ACHES Time Seen by Provider: 10/12/20 12:11 Source: patient Mode of arrival: ambulatory Limitations: no limitations History of Present Illness HPI narrative: 35-year-old female who presents emergency department for evaluation of chest pain, back pain, abdominal pain, nausea and vomiting. The patient has a history of diabetes and gastroparesis. She was seen here yesterday with similar symptoms. She states she has been sick for approximately 2 weeks. She states that she is having difficulty eating and drinking secondary to nausea and vomiting. She is also complaining of a burning sensation that is located in the center of her chest and the center of her abdomen, this pain is a constant pain which waxes and wanes in intensity and is 8/10 at its worst. She states that she is also having pain in her back which started last night. She states this pain is located in her upper back, the pain is a throbbing pain is worse with movement. She denied fever, chills, frequency, urgency or dysuria. The patient was seen yesterday and treated with Haldol and Ativan IM with improvement of her symptoms. Related Data Home Medications Medication Instructions Recorded Confirmed gabapentin PO 02/15/20 07/27/20 insulin glargine 100 unit/mL (3 unit SUBCUT 04/08/20 07/27/20 mL) subcutaneous pen insulin lispro 100 unit/mL unit SUBCUT 04/08/20 07/27/20 subcutaneous pen lisinopril 5 mg tablet 5 mg PO DAILY 04/08/20 07/27/20 omeprazole 20 mg capsule,delayed 20 mg PO DAILY 04/08/20 07/27/20 release Previous Rx's Medication Instructions Recorded ondansetron 4 mg disintegrating 4 mg PO Q8H PRN 30 Days #90 tab 04/08/20 tablet metoclopramide HCl [Reglan] 10 mg PO Q6H PRN #20 tab 04/10/20 acetaminophen 325 mg tablet 325 mg PO TID 30 Days #90 tab 04/27/20 cyclobenzaprine 10 mg tablet 10 mg PO BEDTIME 20 Days #20 tab 06/04/20 naproxen 500 mg tablet 500 mg PO BID 10 Days #20 tab 06/04/20 lorazepam 0.5 mg tablet 0.5 mg PO DAILY PRN 2 Days #2 tab 07/08/20 insulin lispro 100 unit/mL 5 unit SUBCUT TID 30 Days #15 ml 07/27/20 subcutaneous pen miscellaneous medical supply 1 ea MISCELLANEOUS DAILY 99 Days 09/15/20 #2 ea acetaminophen 300 mg-codeine 30 mg 1 tab PO DAILY 15 Days #15 tab 10/01/20 tablet ondansetron 4 mg PO Q6-8H PRN #20 tab 10/12/20 oxycodone 5 mg PO Q6H PRN #14 tab 10/12/20 Allergies Allergy/AdvReac Type Severity Reaction Status Date / Time morphine [MORPHINE] Allergy Unknown HIVES Verified 10/11/20 01:24 raspberry [Raspberry] Allergy Unknown HIVES Verified 10/11/20 01:24 nitrofurantoin AdvReac Unknown GI side Verified 10/11/20 01:24 [From Macrobid] effects Review of Systems Review of Systems: Yes all other systems are reviewed and are negative [facility] Past [facility] History [facility] Narrative: Social history: The patient denies alcohol use, she does smoke cigarettes daily. She smokes marijuana daily. Source: unable to obtain Medical History Amput below knee, unilat Anxiety Chronic kidney disease Diabetes Hypertension Surgical History No pertinent past surgical history Family History Family History Father Hyperlipidemia Mother Stomach cancer Sister Diabetes Social History Social History Alcohol intake: never Patient Tobacco Use Status: Current everyday Tobacco user Substance Use Type: Marijuana Advance Directives: Yes Advance Directives on File: Yes Advance Directives Date on File: 04/10/20 Patient : No Physical Exam Vital Signs: Vital Signs: Last Vital Signs Temp 97.3 F 10/12/20 10:19 Pulse 112 H 10/12/20 10:19 Resp 16 10/12/20 10:19 BP 115/79 10/12/20 10:19 Pulse Ox 96 10/12/20 10:19 Body Mass Index 24.0 Const: General: cooperative Orientation/consciousness: oriented to person and oriented to place Limitations: no limitations HENMT: Head: Yes normal to inspection, Yes normocephalic and Yes atraumatic Ears: external ears normal General nose exam: Normal external nose present Face and sinus: Yes normal facial exam Mouth: Normal oral and palatal mucosa present Throat: Yes posterior oropharynx normal Eyes: Periorbital: periorbital findings normal Eyelids: Yes eyelids normal Conjunctivae: conjunctivae normal Sclerae: sclerae normal Corneas: corneas normal Pupils: Equal, round and reactive pupils present Direct Ophthalmoscopy: normal light reflex Neck: Neck: Yes full ROM, Yes no lymphadenopathy, Yes no meningeal signs, Yes trachea midline and Yes supple Chest: Chest palpation & inspection: normal inspection of the chest and tenderness sternum Resp: Effort & Inspection: normal respiratory effort and able to speak in complete sentences Auscultation: clear to auscultation bilaterally Cardio: Rate: regular rate Rhythm: regular rhythm Heart sounds: S1 normal heart sound present, S2 normal heart sound present and no murmurs GI: Inspection: Yes normal to inspection Palpation (GI): Soft to palpation, Tenderness to palpation present (GI) in the epigastrum, no guarding, not rigid and No hepatosplenomegaly present : General: Yes no CVA tenderness Back/Spine/Pelvis: Back: no CVA tenderness Cervical Spine: normal cervical lordosis Thoracic/Lumbar Spine: thoracic and lumbar spine normal to inspection Skin: Lesions: no lesions Rashes: no rashes Wounds: no wounds Neuro: General: oriented to person, oriented to place and no meningeal signs Cranial nerves: Yes CN's II-XII intact bilaterally and Yes Equal, round and reactive pupils present Cognition (Neuro): normal cognition Motor exam (neuro): 5/5 motor strength present throughout Extrem: General: Yes normal to inspection and Yes full ROM Psych: Appearance: well kempt Mental Status: mental status grossly normal Speech and movement: Normal speech and movement present Affect: normal affect Attitude: cooperative Thought process: Normal thought process present Thought content: Normal thought content present Course Course Course Narrative: 35-year-old female with a history of diabetes mellitus and gastroparesis who presents emergency department for evaluation of chest, abdominal, back pain, persistent nausea and vomiting. Patient was seen yesterday with similar symptoms and treated with IM Haldol and IM Ativan. Her examination did reveal tenderness with palpation of her chest abdomen otherwise exam was unremarkable.Vital signs revealed tachycardia with a pulse of 112 otherwise unremarkable. I did discuss treatment with the patient and she would like to try intermuscular pain medications and oral Zofran. Patient was ordered to get Dilaudid 2 mg IM and Zofran 4 mg ODT. Patient will be discharged home with a prescription for Zofran ODT. She is advised to take Tylenol for pain and for pain not relieved by Tylenol she was given a limited prescription for oxycodone. Medical Decision Making Lab Data Labs: Lab Results 10/12/20 Range/Units 11:51 POC Glucose 255 H (60-115) mg/dL Discharge Plan Discharge Clinical Impression: Diabetes mellitus with gastroparesis, Abdominal pain, Vomiting Patient Disposition: Home, Self-Care Instructions: Diabetic Gastroparesis (DC) Additional Instructions: Stop taking Tylenol with codeine. Take Zofran (ondansetron) oral dissolvable tablets 4 mg, 1 tablet dissolved in your mouth every 8 hours as needed for nausea and vomiting. Take Tylenol (acetaminophen) 500 mg pills, 2 pills every 4 to 6 hours as needed for pain. For pain not relieved by Tylenol take oxycodone 5 mg tablets, 1 pill every 6 hours as needed for pain. This is a narcotic medication and can be addicting. If your concerned about addiction do not take this medication or you can ask the pharmacist for less pills than prescribed. Do not drive or work while taking this medication. Continue taking medications as prescribed by your doctor. Follow-up with your doctor in 2 days. Please return to the emergency department if your symptoms get worse or if you develop any symptoms that are concerning to you. Prescriptions: New ondansetron 4 mg tablet,disintegrating 4 mg PO Q6-8H PRN (Reason: nausea and vomiting) Qty: 20 RF: 0 oxycodone 5 mg tablet 5 mg PO Q6H PRN (Reason: pain) Qty: 14 RF: 0 No Action acetaminophen [Pain Reliever (acetaminophen)] 325 mg tablet 325 mg PO TID 30 Days Qty: 90 RF: 0 lorazepam 0.5 mg tablet 0.5 mg PO DAILY PRN (Reason: anxiety) 2 Days Qty: 2 RF: 0 miscellaneous medical supply Misc 1 ea miscellaneous DAILY 99 Days Qty: 2 RF: 0 acetaminophen-codeine 300-30 mg tablet 1 tab PO DAILY 15 Days Qty: 15 RF: 1 Hold Instructions: Resume on 04/17/20. gabapentin 100 mg capsule PO RF: 0 metoclopramide HCl [Reglan] 10 mg tablet 10 mg PO Q6H PRN (Reason: nausea and vomiting) Qty: 20 RF: 0 omeprazole 20 mg capsule,delayed release(DR/EC) 20 mg PO DAILY RF: 0 insulin glargine 100 unit/mL (3 mL) insulin pen subcut RF: 0 insulin lispro 100 unit/mL insulin pen subcut RF: 0 lisinopril 5 mg tablet 5 mg PO DAILY RF: 0 ondansetron 4 mg tablet,disintegrating 4 mg PO Q8H PRN (Reason: nausea/vomiting) 30 Days Qty: 90 RF: 1 Hold Instructions: Resume on 04/17/20. cyclobenzaprine 10 mg tablet 10 mg PO BEDTIME 20 Days Qty: 20 RF: 0 naproxen 500 mg tablet 500 mg PO BID 10 Days Qty: 20 RF: 0 insulin lispro [Humalog KwikPen Insulin] 100 unit/mL insulin pen 5 unit subcut TID 30 Days Qty: 15 RF: 2
[2020-10-12] MEDS: HYDROmorphone HCl 2 MG/ML VIAL IM (12:59)
[2020-10-12 13:24] VITALS: BP 110/69; PULSE 91; RESP 18; O2SAT 98
--- NOTE | 2020-10-12 13:26 | PC.NURSE ---
continues to complain of generalized pain, wiggle in bed, requesting additional pain meds.
== END 2020-10-12 13:41 | disposition home or self-care (01) ==
PROVIDERS: Emergency Provider Emergency Medicine Emergency Medical Services; PCP Physician Assistant
DX: E11.43 Type 2 diabetes mellitus with diabetic autonomic (poly)neuropathy (principal); K31.84 Gastroparesis; R10.13 Epigastric pain; R11.2 Nausea with vomiting, unspecified; R00.0 Tachycardia, unspecified; F17.210 Nicotine dependence, cigarettes, uncomplicated; F12.90 Cannabis use, unspecified, uncomplicated; Z79.4 Long term (current) use of insulin; Z79.899 Other long term (current) drug therapy
CPT/HCPCS: 82947; 96372; 99284; J1170

== ENCOUNTER 2020-10-16 10:00 | Emergency (ER) | payer OTHER, SELFPAY ==
--- NOTE | ~2020-10-16 | XR_ITS ---
EXAMINATION: XR HIP, RIGHT CLINICAL INFORMATION: Right hip pain. COMPARISON: None TECHNIQUE: Two views of the right hip. FINDINGS: Mild right hip degenerative joint changes are seen. There is no acute fracture or dislocation. The right hemipelvis is intact. The soft tissues are unremarkable. XR/XR hip RT w [id number] IMPRESSION: Mild right hip osteoarthritis. No acute abnormality.
[2020-10-16 11:13] VITALS: BP 119/75; PULSE 88; RESP 18; TEMP 36.8; O2SAT 97; BMI 26.6
--- NOTE | 2020-10-16 11:48 | ED_ITS ---
HPI - Extremity Injury (Lower) General Chief Complaint: Extremity Injury, Lower Stated Complaint: r hip pain Time Seen by Provider: 10/16/20 11:35 History of Present Illness HPI Narrative: Patient is a 35-year-old female with a history of diabetes, gastroparesis. Presented to the emergency department multiple times for the same in the past. Today complained of having pain to the right hip. She is able to move it. Patient denies any fever chills. No coughing or congestion or upper respiratory symptoms. She was here in the hospital on October 12 at the time was given 14 tablets of oxycodone. Patient claims that her pain is extreme complaining of pain in the hip area. No trauma. No fever no chills. No diaphoresis. Positive nausea. This is chronic. Related Data Home Medications Medication Instructions Recorded Confirmed gabapentin PO 02/15/20 07/27/20 insulin glargine 100 unit/mL (3 unit SUBCUT 04/08/20 07/27/20 mL) subcutaneous pen insulin lispro 100 unit/mL unit SUBCUT 04/08/20 07/27/20 subcutaneous pen lisinopril 5 mg tablet 5 mg PO DAILY 04/08/20 07/27/20 omeprazole 20 mg capsule,delayed 20 mg PO DAILY 04/08/20 07/27/20 release Previous Rx's Medication Instructions Recorded ondansetron 4 mg disintegrating 4 mg PO Q8H PRN 30 Days #90 tab 04/08/20 tablet metoclopramide HCl [Reglan] 10 mg PO Q6H PRN #20 tab 04/10/20 acetaminophen 325 mg tablet 325 mg PO TID 30 Days #90 tab 04/27/20 cyclobenzaprine 10 mg tablet 10 mg PO BEDTIME 20 Days #20 tab 06/04/20 naproxen 500 mg tablet 500 mg PO BID 10 Days #20 tab 06/04/20 lorazepam 0.5 mg tablet 0.5 mg PO DAILY PRN 2 Days #2 tab 07/08/20 insulin lispro 100 unit/mL 5 unit SUBCUT TID 30 Days #15 ml 07/27/20 subcutaneous pen miscellaneous medical supply 1 ea MISCELLANEOUS DAILY 99 Days 09/15/20 #2 ea acetaminophen 300 mg-codeine 30 mg 1 tab PO DAILY 15 Days #15 tab 10/01/20 tablet ondansetron 4 mg PO Q6-8H PRN #20 tab 10/12/20 oxycodone 5 mg PO Q6H PRN #14 tab 10/12/20 Allergies Allergy/AdvReac Type Severity Reaction Status Date / Time morphine [MORPHINE] Allergy Unknown HIVES Verified 10/11/20 01:24 raspberry [Raspberry] Allergy Unknown HIVES Verified 10/11/20 01:24 nitrofurantoin AdvReac Unknown GI side Verified 10/11/20 01:24 [From Macrobid] effects Review of Systems Review of Systems: Constitutional: No Weight loss, No Fever, No Chills, No Night Sweats, No Fatigue, No Malaise ENT/Mouth: No Hearing loss, No Ear Pain, No Nasal Congestion, No Sinus Pain, No Hoarseness, No sore throat, No Rhinorrhea, No Swallowing Difficulty Eyes: No Eye Pain, No Swelling, No Redness, No Foreign Body, No Discharge, No Vision Changes Cardiovascular: No Chest Pain, No SOB, No Dyspnea on Exertion, No Orthopnea, No Edema, No Palpitations Respiratory: No Cough, No Sputum, No Wheezing, No Smoke Exposure, No Dyspnea Gastrointestinal: No Nausea, No Vomiting, No Diarrhea, No Constipation, No abdominal Pain, No Hematochezia, No Melena Genitourinary: no irregular bleeding, No Dysuria, No Urinary Frequency, No Hematuria, No Urinary Incontinence, No Urgency, No Flank Pain, No Urinary Flow Changes, No Hesitancy Musculoskeletal: No joint pain, No Myalgias, No Joint Swelling Skin: No Skin Lesions, No rash Neuro: No Weakness, No Numbness, No Paresthesias, No Loss of Consciousness, No Dizziness, No Headache Psych: No Anxiety/Panic, No Depression, No SI/HI/AH/VH, No Social Issues, Heme/Lymph: No Bruising, No Bleeding,No Lymphadenopathy Endocrine: No Polyuria, No Polydipsia, No Temperature Intolerance [facility] Past Medical History Attestation statement: The following information was validated with the patient. Source: unable to obtain Medical History Amput below knee, unilat Anxiety Chronic kidney disease Diabetes Hypertension Surgical History No pertinent past surgical history Family History Family History Father Hyperlipidemia Mother Stomach cancer Sister Diabetes Social History Social History Alcohol intake: never Patient Tobacco Use Status: Current everyday Tobacco user Use of substances other than those prescribed or required for medical reasons: No Substance Use Type: Marijuana Advance Directives: Yes Advance Directives on File: Yes Advance Directives Date on File: 04/10/20 Patient : No Physical Exam Vital Signs: Vital Signs: Last Vital Signs Temp 98.1 F 10/16/20 12:23 Pulse 90 10/16/20 13:33 Resp 16 10/16/20 13:33 BP 155/85 H 10/16/20 13:33 Pulse Ox 97 10/16/20 13:33 Body Mass Index 26.6 Appearance: Alert. Oriented X3. No acute distress. Eyes: Pupils equal, round and reactive to light. ENT: Pharynx normal. Neck: Normal inspection. Neck supple. No lymph nodes noted. No crepitus CVS: Normal heart rate and rhythm. Pulses normal. Normal S1 and S2 Respiratory: No respiratory distress. Breath sounds normal. No Wheezing. No rales Abdomen: Soft and nontender. No rigidity. No distention. good BS x4 Skin: Skin warm and dry. Normal skin color. Normal skin turgor. Extremities: No lower extremity edema. Neurovascular intact to all extremities. No Lacerations. No Rash. Patient flexing her hip without any difficulty moving around in in the room. Neuro: Oriented X 3. No motor deficit. No sensory deficit. Moving all extermities. No slurred speech MDM - Extremity Injury (Lower) MDM Narrative Medical decision making narrative: X-ray showed no acute fractures. Patient well appearing. Will discharge patient home. Given doses of pain medicine. Patient told to follow up on an outpatient basis. There is no trauma. There is no evidence for fracture. In stable condition. Lab Data Attestation: I reviewed the patient's lab results. Labs: Lab Results 10/16/20 10/16/20 10/16/20 Range/Units 12:12 12:15 12:15 POC Glucose 184 H (60-115) mg/dL Urine Color YELLOW Urine Appearance CLEAR Urine pH 6.5 (5.0-8.0) Ur Specific [place] 1.010 (1.005-1.025) Urine Protein TRACE (NEG-TRACE) MG/DL Urine Glucose (UA) >=1000 H (NEG) MG/DL Urine Ketones NEG (NEG) MG/DL Urine Blood NEG (NEG) Urine Nitrite NEG (NEG) Ur Leukocyte Esterase NEG (NEG) Urine RBC 0-2 (0) /HPF Urine WBC 0 (0-4) /HPF Ur Squamous Epith Cells 1+ /LPF Urine Bacteria TRACE /LPF Urine Test NEGATIVE (NEGATIVE) Discharge Plan Discharge Clinical Impression: Arthritis Patient Disposition: Home, Self-Care Instructions: Arthritis (ED) Prescriptions: No Action acetaminophen [Pain Reliever (acetaminophen)] 325 mg tablet 325 mg PO TID 30 Days Qty: 90 RF: 0 lorazepam 0.5 mg tablet 0.5 mg PO DAILY PRN (Reason: anxiety) 2 Days Qty: 2 RF: 0 miscellaneous medical supply Misc 1 ea miscellaneous DAILY 99 Days Qty: 2 RF: 0 acetaminophen-codeine 300-30 mg tablet 1 tab PO DAILY 15 Days Qty: 15 RF: 1 Hold Instructions: Resume on 04/17/20. gabapentin 100 mg capsule PO RF: 0 metoclopramide HCl [Reglan] 10 mg tablet 10 mg PO Q6H PRN (Reason: nausea and vomiting) Qty: 20 RF: 0 ondansetron 4 mg tablet,disintegrating 4 mg PO Q6-8H PRN (Reason: nausea and vomiting) Qty: 20 RF: 0 oxycodone 5 mg tablet 5 mg PO Q6H PRN (Reason: pain) Qty: 14 RF: 0 omeprazole 20 mg capsule,delayed release(DR/EC) 20 mg PO DAILY RF: 0 insulin glargine 100 unit/mL (3 mL) insulin pen subcut RF: 0 insulin lispro 100 unit/mL insulin pen subcut RF: 0 lisinopril 5 mg tablet 5 mg PO DAILY RF: 0 ondansetron 4 mg tablet,disintegrating 4 mg PO Q8H PRN (Reason: nausea/vomiting) 30 Days Qty: 90 RF: 1 Hold Instructions: Resume on 04/17/20. cyclobenzaprine 10 mg tablet 10 mg PO BEDTIME 20 Days Qty: 20 RF: 0 naproxen 500 mg tablet 500 mg PO BID 10 Days Qty: 20 RF: 0 insulin lispro [Humalog KwikPen Insulin] 100 unit/mL insulin pen 5 unit subcut TID 30 Days Qty: 15 RF: 2 Referrals: Dariusz Garcia PA-C [Primary Care Provider] - 2 days
[2020-10-16 12:16] LABS: Glucose, Whole Blood 184 mg/dL (60-115)
[2020-10-16 12:23] VITALS: BP 140/70; PULSE 85; RESP 16; TEMP 36.7; O2SAT 100
--- NOTE | 2020-10-16 12:25 | PC.NURSE ---
Pt specifically asking for for Dilaudid, provider aware. Pt restless in bed, jerking when rn enters room.
[2020-10-16 12:26] LABS: Glucose Urine UA >=1000 MG/DL (NEG); Leukocyte Esterase Urine NEG (NEG); Nitrite Urine NEG (NEG); PH 6.5 (5.0-8.0); Urine Blood NEG (NEG); Urine Ketones NEG (NEG); Urine Protein TRACE MG/DL (NEG-TRACE)
[2020-10-16 12:29] LABS: UPreg QC Valid YES; Urine Pregnancy NEGATIVE (NEGATIVE)
[2020-10-16 12:30] LABS: Appearance Urine CLEAR; Color Urine YELLOW
[2020-10-16 12:42] VITALS: RESP 22
[2020-10-16] MEDS: HYDROmorphone HCl 1 MG/ML SYRINGE IM ×2 (12:42→13:32)
[2020-10-16 13:04] LABS: Bacteria Urine TRACE /LPF; RBC Urine 0-2 /HPF (0); Squamous Epithelial Cell Urine 1+ /LPF; WBC Urine 0 /HPF (0-4)
[2020-10-16 13:32] VITALS: RESP 16
[2020-10-16 13:33] VITALS: BP 155/85; PULSE 90; RESP 16; O2SAT 97
== END 2020-10-16 14:04 | disposition home or self-care (01) ==
PROVIDERS: Emergency Provider Emergency Medicine Emergency Medical Services; PCP Physician Assistant
DX: M16.11 Unilateral primary osteoarthritis, right hip (principal); M25.551 Pain in right hip; E11.9 Type 2 diabetes mellitus without complications; F17.210 Nicotine dependence, cigarettes, uncomplicated; F12.90 Cannabis use, unspecified, uncomplicated; Z79.4 Long term (current) use of insulin
CPT/HCPCS: 73502; 81001; 81025; 82947; 96372; 99284; J1170

== ENCOUNTER 2020-11-14 06:03 | Emergency (ER) | payer OTHER, SELFPAY ==
[2020-11-14 06:32] VITALS: BP 135/73; PULSE 102; RESP 20; O2SAT 97; BMI 24.3
[2020-11-14 06:44] LABS: Glucose, Whole Blood 140 mg/dL (60-115)
[2020-11-14 07:40] VITALS: BP 106/54; PULSE 87; RESP 20; O2SAT 98
--- NOTE | 2020-11-14 08:17 | ED.ABDPAIN ---
HPI - Abdominal Pain General Chief Complaint: Abdominal Pain Stated Complaint: pain Time Seen by Provider: 11/14/20 08:06 Source: patient Mode of arrival: ambulatory Limitations: no limitations History of Present Illness HPI narrative: 35-year-old female who presents emergency department for evaluation of nausea, vomiting and abdominal pain. The patient has a history of gastroparesis and has been seen here in the emergency department multiple times in the past with similar complaints. The patient states that last night she ate mozzarella sticks at around 6:00 p.m. in approximately 10-15 minutes later she developed abdominal pain. She then developed multiple episodes of diarrhea. She states that she has had multiple episodes of vomiting as well. She denies any blood in the emesis or the diarrhea. The patient states that she also has severe, diffuse, abdominal pain which is 10/10. She states she has had similar pain in the past with her gastroparesis. She took Tylenol at home but was unable to hold this medication down. She denied fever, chills, chest pain, shortness of breath. Related Data Home Medications Medication Instructions Recorded Confirmed gabapentin PO 02/15/20 10/22/20 insulin glargine 100 unit/mL (3 unit SUBCUT 04/08/20 10/22/20 mL) subcutaneous pen insulin lispro 100 unit/mL unit SUBCUT 04/08/20 10/22/20 subcutaneous pen lisinopril 5 mg tablet 5 mg PO DAILY 04/08/20 10/22/20 omeprazole 20 mg capsule,delayed 20 mg PO DAILY 04/08/20 10/22/20 release Previous Rx's Medication Instructions Recorded metoclopramide HCl [Reglan] 10 mg PO Q6H PRN #20 tab 04/10/20 acetaminophen 325 mg tablet 325 mg PO TID 30 Days #90 tab 04/27/20 cyclobenzaprine 10 mg tablet 10 mg PO BEDTIME 20 Days #20 tab 06/04/20 naproxen 500 mg tablet 500 mg PO BID 10 Days #20 tab 06/04/20 lorazepam 0.5 mg tablet 0.5 mg PO DAILY PRN 2 Days #2 tab 07/08/20 insulin lispro 100 unit/mL 5 unit SUBCUT TID 30 Days #15 ml 07/27/20 subcutaneous pen miscellaneous medical supply 1 ea MISCELLANEOUS DAILY 99 Days 05/04/21 #2 ea ondansetron 4 mg PO Q6-8H PRN #20 tab 10/12/20 meloxicam 15 mg tablet 15 mg PO DAILY 30 Days #30 tab 10/22/20 acetaminophen 300 mg-codeine 30 mg 1 tab PO DAILY 15 Days #15 tab 11/02/20 tablet Allergies Allergy/AdvReac Type Severity Reaction Status Date / Time morphine [MORPHINE] Allergy Unknown HIVES Verified 10/22/20 14:46 raspberry [Raspberry] Allergy Unknown HIVES Verified 10/22/20 14:46 nitrofurantoin AdvReac Unknown GI side Verified 10/22/20 14:46 [From Macrobid] effects Review of Systems Review of Systems Yes all other systems are reviewed and are negative Physical Exam Vital Signs: Vital Signs: Last Vital Signs Pulse 87 11/14/20 07:40 Resp 20 11/14/20 07:40 BP 106/54 L 11/14/20 07:40 Pulse Ox 98 11/14/20 07:40 Body Mass Index 24.3 Const: Other: Patient is writhing in pain on the stretcher, she is tearful, she is holding her abdomen and complaining of severe pain HENMT: Head: Yes normal to inspection, Yes normocephalic and Yes atraumatic Ears: external ears normal General nose exam: Normal external nose present Face and sinus: Yes normal facial exam Mouth: Normal oral and palatal mucosa present Throat: Yes posterior oropharynx normal Eyes: Periorbital: periorbital findings normal Eyelids: Yes eyelids normal Conjunctivae: conjunctivae normal Sclerae: sclerae normal Corneas: corneas normal Pupils: Equal, round and reactive pupils present Direct Ophthalmoscopy: normal light reflex Neck: Neck: Yes full ROM, Yes no lymphadenopathy, Yes no meningeal signs, Yes trachea midline and Yes supple Chest: Chest palpation & inspection: normal inspection of the chest and normal palpation of entire chest wall Resp: Effort & Inspection: normal respiratory effort and able to speak in complete sentences Auscultation: clear to auscultation bilaterally Cardio: Rate: regular rate Rhythm: regular rhythm Heart sounds: S1 normal heart sound present, S2 normal heart sound present and no murmurs GI: Inspection: Yes normal to inspection Palpation (GI): Soft to palpation, nontender, no guarding, not rigid and No hepatosplenomegaly present Auscultation: normal bowel sounds : General: Yes no CVA tenderness Back/Spine/Pelvis: Back: no CVA tenderness Cervical Spine: normal cervical lordosis Thoracic/Lumbar Spine: thoracic and lumbar spine normal to inspection Skin: Lesions: no lesions Rashes: no rashes Wounds: no wounds Neuro: General: no meningeal signs Cranial nerves: Yes CN's II-XII intact bilaterally and Yes Equal, round and reactive pupils present Cognition (Neuro): normal cognition Motor exam (neuro): 5/5 motor strength present throughout Extrem: Other: lower extremity [id number] amputation Psych: Other: patient is very agitated secondary to her abdominal pain Course Course Course Narrative: 35-year-old female with a history of diabetes mellitus and gastroparesis who presents emergency department for evaluation of nausea, vomiting, diarrhea and abdominal pain which began yesterday at 4:00 p.m. after she ate mozzarella sticks. Patient has a history of gastroparesis and she has been seen here in the emergency department with similar pain and symptoms in the past. The patient is difficult to establish an IV in. I offered to treat her with Haldol 5 mg IM and Ativan 2 mg IM and she states that she does not like the way this medication makes her feel. Therefore patient was therefore treated with Dilaudid 2 mg IM and Zofran 8 mg oral dissolvable tablet. 0923: The patient got only minimal improvement with IM Dilaudid and oral Zofran. She was ordered to get a 2nd shot of Dilaudid 2 mg IM. The patient will then be discharged home with a prescription for Zofran. The patient was given verbal and printed instructions prior to discharge. The patient was advised to follow-up with their PCP in 2 days and to return to the emergency department if their symptoms get worse or if they develop any new symptoms that are concerning to them . MDM - Abdominal Pain Lab Data Labs: Lab Results 11/14/20 Range/Units 06:40 POC Glucose 140 H (60-115) mg/dL Discharge Plan Discharge Clinical Impression: Diabetes mellitus with gastroparesis, Abdominal pain, Vomiting, Diarrhea Patient Disposition: Home, Self-Care Instructions: Diabetic Gastroparesis (DC) Additional Instructions: Take ibuprofen 200 mg pills, 3 pills every 6 hours as needed for pain. Take Tylenol (acetaminophen) 500 mg pills, 2 pills every 4 to 6 hours as needed for pain. Follow-up with your doctor in 2 days. Please return to the emergency department if your symptoms get worse or if you develop any symptoms that are concerning to you. Prescriptions: No Action acetaminophen [Pain Reliever (acetaminophen)] 325 mg tablet 325 mg PO TID 30 Days Qty: 90 RF: 0 lorazepam 0.5 mg tablet 0.5 mg PO DAILY PRN (Reason: anxiety) 2 Days Qty: 2 RF: 0 miscellaneous medical supply Misc 1 ea miscellaneous DAILY 99 Days Qty: 2 RF: 0 acetaminophen-codeine 300-30 mg tablet 1 tab PO DAILY 15 Days Qty: 15 RF: 2 Hold Instructions: Resume on 04/17/20. gabapentin 100 mg capsule PO RF: 0 metoclopramide HCl [Reglan] 10 mg tablet 10 mg PO Q6H PRN (Reason: nausea and vomiting) Qty: 20 RF: 0 ondansetron 4 mg tablet,disintegrating 4 mg PO Q6-8H PRN (Reason: nausea and vomiting) Qty: 20 RF: 0 omeprazole 20 mg capsule,delayed release(DR/EC) 20 mg PO DAILY RF: 0 insulin glargine 100 unit/mL (3 mL) insulin pen subcut RF: 0 insulin lispro 100 unit/mL insulin pen subcut RF: 0 lisinopril 5 mg tablet 5 mg PO DAILY RF: 0 cyclobenzaprine 10 mg tablet 10 mg PO BEDTIME 20 Days Qty: 20 RF: 0 naproxen 500 mg tablet 500 mg PO BID 10 Days Qty: 20 RF: 0 insulin lispro [Humalog KwikPen Insulin] 100 unit/mL insulin pen 5 unit subcut TID 30 Days Qty: 15 RF: 2 meloxicam 15 mg tablet 15 mg PO DAILY 30 Days Qty: 30 RF: 0 PMFSH [facility] Narrative: Social history: She denies tobacco, alcohol and drug use. Medical History Amput below knee, unilat Anxiety Chronic kidney disease Diabetes Hypertension Surgical History No pertinent past surgical history Family History Family History Father Hyperlipidemia Mother Stomach cancer Sister Diabetes Social History Social History Housing: Apartment Alcohol intake: never Patient Tobacco Use Status: Never used Tobacco Second Hand Smoke Exposure: No Use of substances other than those prescribed or required for medical reasons: No Substance Use Type: Marijuana Advance Directives: Yes Advance Directives on File: Yes Advance Directives Date on File: 04/10/20 service: No Current occupational status: disabled
[2020-11-14] MEDS: HYDROmorphone HCl 2 MG/ML VIAL IM ×2 (08:25→09:36)
--- NOTE | 2020-11-14 09:03 | PC.NURSE ---
PT REPORTS NO IMPROVEMENT WITH PAIN AFTER THE MEDICATION, NO VOMITING AT THIS TIME. PT IS THRASHING AROUND IN BED. MD ELI
[2020-11-14 10:01] VITALS: BP 155/88; PULSE 98; RESP 20; O2SAT 98
--- NOTE | 2020-11-14 10:32 | PC.NURSE ---
pt is sound asleep, respirations even and unlabored.
== END 2020-11-14 11:20 | disposition home or self-care (01) ==
PROVIDERS: Emergency Provider Emergency Medicine Emergency Medical Services
DX: E11.43 Type 2 diabetes mellitus with diabetic autonomic (poly)neuropathy (principal); K31.84 Gastroparesis; R19.7 Diarrhea, unspecified; Z79.4 Long term (current) use of insulin
CPT/HCPCS: 82947; 96372; 99284; J1170

== ENCOUNTER 2020-11-17 12:40 | Emergency (ER) | payer OTHER, SELFPAY ==
[2020-11-17 13:49] VITALS: BP 120/71; PULSE 86; RESP 19; TEMP 36.6; O2SAT 99; BMI 24.3
== END 2020-11-17 19:01 | disposition left against medical advice (07) ==
LOC: HO.ED 18:54
PROVIDERS: Emergency Provider Emergency Medicine; PCP Physician Assistant
DX: M79.605 Pain in left leg (principal)
CPT/HCPCS: 99281; 99282

== ENCOUNTER 2020-12-12 03:44 | Emergency (ER) | payer OTHER, SELFPAY ==
[2020-12-12 03:50] VITALS: BP 176/93; PULSE 125; RESP 20; TEMP 36.6; O2SAT 99; BMI 20.1
[2020-12-12] MEDS: diphenhydrAMINE HCL 25 MG TABLET PO (03:59)
[2020-12-12] MEDS: Acetaminophen 325 MG TABLET 975 MG PO (03:59)
[2020-12-12] MEDS: Ketorolac Tromethamine 15 MG/ML VIAL IM (03:59)
[2020-12-12] MEDS: Ondansetron ODT 4 MG TAB.RAPDIS TRANSLINGU (04:01)
--- NOTE | 2020-12-12 04:01 | PC.NURSE ---
Medicated per JUL. Pt immediately vomiting after oral medications. Awaiting primary MD [facility].
[2020-12-12 04:03] LABS: Glucose, Whole Blood 248 mg/dL (60-115)
[2020-12-12] MEDS: diphenhydrAMINE HCL 50 MG/ML VIAL IM (04:09)
--- NOTE | 2020-12-12 05:01 | PC.NURSE ---
Pt unable to provide urine sample. Awaiting primary MD nash.
--- NOTE | 2020-12-12 05:13 | ED_ITS ---
HPI - Abdominal Pain General Chief Complaint: Abdominal Pain Stated Complaint: abd pain Time Seen by Provider: 12/12/20 03:48 Source: patient Mode of arrival: ambulatory History of Present Illness HPI narrative: 35-year-old female comes in stating that her period is 1 week late and that she is having bad cramps for 3 days without diarrhea, fevers, chills but has had nausea and vomiting. Otherwise, she denies any shortness of breath/chest pain/palpitations. Patient states that she did not take her Lantus this evening because she did not feel well. Related Data Home Medications Medication Instructions Recorded Confirmed gabapentin 100 mg capsule PO 02/15/20 10/22/20 insulin glargine 100 unit/mL (3 unit SUBCUT 04/08/20 10/22/20 mL) subcutaneous pen insulin lispro 100 unit/mL unit SUBCUT 04/08/20 10/22/20 subcutaneous pen lisinopril 5 mg tablet 5 mg PO DAILY 04/08/20 10/22/20 omeprazole 20 mg capsule,delayed 20 mg PO DAILY 04/08/20 10/22/20 release Previous Rx's Medication Instructions Recorded metoclopramide HCl 10 mg tablet 10 mg PO Q6H PRN #20 tab 04/10/20 (Reglan) acetaminophen 325 mg tablet (Pain 325 mg PO TID 30 Days #90 tab 04/27/20 Reliever (acetaminophen)) cyclobenzaprine 10 mg tablet 10 mg PO BEDTIME 20 Days #20 tab 06/04/20 naproxen 500 mg tablet 500 mg PO BID 10 Days #20 tab 06/04/20 lorazepam 0.5 mg tablet 0.5 mg PO DAILY PRN 2 Days #2 tab 07/08/20 insulin lispro 100 unit/mL 5 unit SUBCUT TID 30 Days #15 ml 07/27/20 subcutaneous pen (Humalog KwikPen (U-100) Insulin) miscellaneous medical supply 1 ea MISCELLANEOUS DAILY 99 Days 09/15/20 #2 ea ondansetron 4 mg disintegrating 4 mg PO Q6-8H PRN #20 tab 10/12/20 tablet acetaminophen 300 mg-codeine 30 mg 1 tab PO DAILY 15 Days #15 tab 11/02/20 tablet ondansetron 4 mg disintegrating 4 mg PO Q6-8H PRN #14 tab 11/14/20 tablet meloxicam 15 mg tablet 15 mg PO DAILY #30 tab 11/17/20 Allergies Allergy/AdvReac Type Severity Reaction Status Date / Time morphine [MORPHINE] Allergy Unknown HIVES Verified 10/22/20 14:46 raspberry [Raspberry] Allergy Unknown HIVES Verified 10/22/20 14:46 nitrofurantoin AdvReac Unknown GI side Verified 10/22/20 14:46 [From Macrobid] effects Review of Systems Review of Systems Pertinent positives and negatives as stated in HPI 10 point review of systems is otherwise negative. Physical Exam Vital Signs: Vital Signs: Last Vital Signs Temp 98 F 12/12/20 03:50 Pulse 125 H 12/12/20 03:50 Resp 20 12/12/20 03:50 BP 176/93 H 12/12/20 03:50 Pulse Ox 99 12/12/20 03:50 Body Mass Index 20.1 VITAL SIGNS: Reviewed. GENERAL: Well developed, well nourished, in moderate distress. HEAD: Normocephalic/araumatic, EYES: PERRLA, EOMI OROPHARYNX: no oral lesions noted, posterior pharynx clear LUNGS: Normal breath sounds. SpO2<99> CARDIOVASCULAR: Regular rate and rhythm without noted murmurs ABDOMEN: Soft, mild tenderness over suprapubic area without rebound non- distended with bowel sounds. MUSCULOSKELETAL: No tenderness, deformities, or effusions noted on gross inspection. EXTREMITIES: No cyanosis, clubbing or edema. SKIN: Inspection of the skin reveals no rashes, ulcerations, jaundice, pallor, or petechiae. NEUROLOGIC: Alert and oriented x 4. Course Course Course Narrative: 35-year-old female with history and clinical presentation suggestive of possible UTI, and will rule out ectopic. Review of all investigations without acute findings and results were communicated with the patient she was otherwise discharged in stable condition with additional medication for suspected menstrual cramps. Discharge Plan Discharge Clinical Impression: Menstrual cramps Patient Disposition: Home, Self-Care Instructions: Dysmenorrhea (ED) Additional Instructions: 1. You need to resume all home medications for your diabetes as well as your other medical conditions as prescribed. 2. Continue to stay well hydrated and follow-up with your primary care provider in the next 2-3 days for re-evaluation. Return to the ER for acute worsening of symptoms. Prescriptions: No Action acetaminophen [Pain Reliever (acetaminophen)] 325 mg tablet 325 mg PO TID 30 Days Qty: 90 RF: 0 lorazepam 0.5 mg tablet 0.5 mg PO DAILY PRN (Reason: anxiety) 2 Days Qty: 2 RF: 0 miscellaneous medical supply Misc 1 ea miscellaneous DAILY 99 Days Qty: 2 RF: 0 acetaminophen-codeine 300-30 mg tablet 1 tab PO DAILY 15 Days Qty: 15 RF: 2 Hold Instructions: Resume on 04/17/20. meloxicam 15 mg tablet 15 mg PO DAILY Qty: 30 RF: 2 gabapentin 100 mg capsule PO RF: 0 metoclopramide HCl [Reglan] 10 mg tablet 10 mg PO Q6H PRN (Reason: nausea and vomiting) Qty: 20 RF: 0 ondansetron 4 mg tablet,disintegrating 4 mg PO Q6-8H PRN (Reason: nausea and vomiting) Qty: 20 RF: 0 ondansetron 4 mg tablet,disintegrating 4 mg PO Q6-8H PRN (Reason: nausea and vomiting) Qty: 14 RF: 0 omeprazole 20 mg capsule,delayed release(DR/EC) 20 mg PO DAILY RF: 0 insulin glargine 100 unit/mL (3 mL) insulin pen subcut RF: 0 insulin lispro 100 unit/mL insulin pen subcut RF: 0 lisinopril 5 mg tablet 5 mg PO DAILY RF: 0 cyclobenzaprine 10 mg tablet 10 mg PO BEDTIME 20 Days Qty: 20 RF: 0 naproxen 500 mg tablet 500 mg PO BID 10 Days Qty: 20 RF: 0 insulin lispro [Humalog KwikPen Insulin] 100 unit/mL insulin pen 5 unit subcut TID 30 Days Qty: 15 RF: 2 Referrals: Physician,Unknown [Primary Care Provider] - 2 days [facility] Past Medical History Source: nursing notes reviewed Medical History Amput below knee, unilat Anxiety Chronic kidney disease Diabetes Hypertension Surgical History No pertinent past surgical history Family History Family History Father Hyperlipidemia Mother Stomach cancer Sister Diabetes Social History Social History Housing: Apartment Alcohol intake: never Patient Tobacco Use Status: Never used Tobacco Second Hand Smoke Exposure: No Substance Use Type: Marijuana Advance Directives: Yes Advance Directives on File: Yes Advance Directives Date on File: 04/10/20 Patient : No service: No Current occupational status: disabled
--- NOTE | 2020-12-12 05:38 | PC.NURSE ---
UA obtained and sent.
[2020-12-12 05:44] LABS: Glucose Urine UA 100 MG/DL (NEG); Leukocyte Esterase Urine NEG (NEG); Nitrite Urine NEG (NEG); UACC Culture Trigger NO; Urine Blood NEG (NEG); Urine Ketones 5 MG/DL (NEG); Urine Protein 1+ MG/DL (NEG-TRACE)
[2020-12-12 05:46] LABS: Appearance Urine CLEAR; Color Urine YELLOW
[2020-12-12 06:03] LABS: UPreg QC Valid YES; Urine Pregnancy NEGATIVE (NEGATIVE)
[2020-12-12 06:04] LABS: RBC Urine 0-2 /HPF (0); Squamous Epithelial Cell Urine TRACE /LPF; WBC Urine 0 /HPF (0-4)
[2020-12-12] MEDS: LORazepam 0.5 MG TABLET PO (06:15)
--- NOTE | 2020-12-12 06:19 | PC.NURSE ---
Pt medicated per MAR, provided with DC paperwork.
[2020-12-12 06:21] VITALS: RESP 24
== END 2020-12-12 06:30 | disposition home or self-care (01) ==
PROVIDERS: Emergency Provider Student in an Organized Health Care Education/Training Program
DX: N94.6 Dysmenorrhea, unspecified (principal); E11.22 Type 2 diabetes mellitus with diabetic chronic kidney disease; I12.9 Hypertensive chronic kidney disease with stage 1 through stage 4 chronic kidney disease, or unspecified chronic kidney disease; N18.9 Chronic kidney disease, unspecified; Z79.4 Long term (current) use of insulin; F12.90 Cannabis use, unspecified, uncomplicated; Z89.511 Acquired absence of right leg below knee
CPT/HCPCS: 81001; 81025; 82947; 96372; 99284; J1200; J1885; Q0163

== ENCOUNTER 2020-12-17 09:52 | Emergency (ER) | payer OTHER, SELFPAY ==
[2020-12-17 09:59] VITALS: BP 155/83; PULSE 122; RESP 19; TEMP 36.6; O2SAT 100; BMI 22.8
--- NOTE | 2020-12-17 11:53 | ED_ITS ---
HPI - General Adult General Chief complaint: General Medical Stated complaint: multiple complaints Time Seen by Provider: 12/17/20 11:11 Source: patient Mode of arrival: ambulatory Limitations: no limitations History of Present Illness HPI narrative: 35-year-old female with a past medical history of diabetes, chronic abdominal pain, pancreatitis, gastroparesis, s/p stimulator placement, anxiety, s/p right BKA?here with complaints of generalized abdominal pain, low back pain, generalized headache with photophobia since last evening. She also has associated vomiting. No diarrhea, urinary symptoms, fevers, chills. Patient tells me this feels similar to her previous as episodes of gastro paresis. Of note she was admitted to [facility] 12/12-12/14 for same. She tells me on discharge she was feeling improved and was able to tolerate p.o. However, symptoms began again last evening. Related Data Home Medications Medication Instructions Recorded Confirmed gabapentin 100 mg capsule PO 02/15/20 10/22/20 insulin glargine 100 unit/mL (3 unit SUBCUT 04/08/20 10/22/20 mL) subcutaneous pen insulin lispro 100 unit/mL unit SUBCUT 04/08/20 10/22/20 subcutaneous pen lisinopril 5 mg tablet 5 mg PO DAILY 04/08/20 10/22/20 omeprazole 20 mg capsule,delayed 20 mg PO DAILY 04/08/20 10/22/20 release Previous Rx's Medication Instructions Recorded metoclopramide HCl 10 mg tablet 10 mg PO Q6H PRN #20 tab 04/10/20 (Reglan) acetaminophen 325 mg tablet (Pain 325 mg PO TID 30 Days #90 tab 04/27/20 Reliever (acetaminophen)) cyclobenzaprine 10 mg tablet 10 mg PO BEDTIME 20 Days #20 tab 06/04/20 naproxen 500 mg tablet 500 mg PO BID 10 Days #20 tab 06/04/20 lorazepam 0.5 mg tablet 0.5 mg PO DAILY PRN 2 Days #2 tab 07/08/20 insulin lispro 100 unit/mL 5 unit SUBCUT TID 30 Days #15 ml 07/27/20 subcutaneous pen (Humalog KwikPen (U-100) Insulin) miscellaneous medical supply 1 ea MISCELLANEOUS DAILY 99 Days 09/15/20 #2 ea ondansetron 4 mg disintegrating 4 mg PO Q6-8H PRN #20 tab 10/12/20 tablet ondansetron 4 mg disintegrating 4 mg PO Q6-8H PRN #14 tab 11/14/20 tablet meloxicam 15 mg tablet 15 mg PO DAILY #30 tab 11/17/20 acetaminophen 300 mg-codeine 30 mg 1 tab PO DAILY 15 Days #15 tab 12/17/20 tablet Allergies Allergy/AdvReac Type Severity Reaction Status Date / Time morphine [MORPHINE] Allergy Unknown HIVES Verified 10/22/20 14:46 raspberry [Raspberry] Allergy Unknown HIVES Verified 10/22/20 14:46 nitrofurantoin AdvReac Unknown GI side Verified 10/22/20 14:46 [From Macrobid] effects Review of Systems Review of Systems: Yes all other systems are reviewed and are negative Constitutional: Constitutional: Reports no additional constitutional complaints, Denies body ache(s), Denies chills, Denies fever(s), Reports headache(s) and Denies weakness Eyes: Eyes: Reports no additional eye complaints, Denies change in vision and Reports photophobia ENT: Reports system reviewed and no additional complaints, except as documented, Denies dizziness, Reports headache(s), Denies nasal congestion, Denies nasal discharge and Denies neck pain Cardiovascular: Cardiovascular: Reports no additional cardiovascular complaints, Denies chest pain, Denies leg edema and Denies dyspnea Respiratory: Respiratory: Reports no additional respiratory complaints, Denies cough and Denies dyspnea Gastrointestinal: Gastrointestinal: Reports no additional gastrointestinal complaints, Reports abdominal pain, Denies diarrhea, Reports nausea and Reports vomiting Genitourinary: Genitourinary: Reports no additional female genitourinary complaints and Denies urinary incontinence Musculoskeletal: Musculoskeletal: Reports no additional musculoskeletal complaints, Reports back pain, Denies arthralgias, Denies joint swelling, Denies neck pain, Denies numbness and Denies tingling Integumentary/Breasts: Skin/Breast: Reports system reviewed and no additional complaints, except as docu and Denies rash Neurologic: Reports system reviewed and no additional complaints, except as documented, Denies Abnormal speech present, Denies dizziness, Reports he adache(s), Denies numbness, Denies tingling and Denies weakness PMFSH Past Medical History Attestation statement: The following information was validated with the patient. Source: old records reviewed and nursing notes reviewed Medical History Amput below knee, unilat Anxiety Chronic kidney disease Diabetes Hypertension Surgical History No pertinent past surgical history Family History Family History Father Hyperlipidemia Mother Stomach cancer Sister Diabetes Social History Social History Housing: Apartment Alcohol intake: never Patient Tobacco Use Status: Never used Tobacco Second Hand Smoke Exposure: No Substance Use Type: Marijuana Advance Directives: Yes Advance Directives on File: Yes Advance Directives Date on File: 04/10/20 Patient : No service: No Current occupational status: disabled Physical Exam Vital Signs: Vital Signs: Last Vital Signs Temp 98 F 12/17/20 09:59 Pulse 96 12/17/20 16:02 Resp 16 12/17/20 16:02 BP 159/91 H 12/17/20 16:02 Pulse Ox 100 12/17/20 15:24 Body Mass Index 22.8 Const: Other: Anxious, awake, alert, answering questions appropriately Orientation/consciousness: patient oriented x3 Limitations: no limitations HENMT: Head: Yes normal to inspection Ears: hearing grossly normal bilatera lly and TM's normal bilaterally General nose exam: Normal external nose p resent Face and sinus: Yes normal facial exam Mouth: Normal oral and palatal mucosa present Throat: Yes posterior oropharynx normal, Yes tonsils normal and Yes uvula midline Eyes: General: appearance normal, both eyes and all related structures Visual Odom: normal visual odom by confrontation Alignment and Position: alignment normal Periorbital: periorbital findings normal Eyelids: Yes eyelids normal Conjunctivae: conjunctivae normal Sclerae: sclerae normal Corneas: corneas normal Pupils: Equal, round and reactive pupils present EOM: EOMs intact bilaterally Direct Ophthalmoscopy: no papilledema, fundi normal bilaterally, anterior chamber normal and photophobia Neck: Neck: Yes normal visual inspection, Yes full ROM, Yes no lymphadenopathy and Yes no meningeal signs Chest: Chest palpation & inspection: normal inspection of the chest Resp: Effort & Inspection: normal respiratory effort Auscultation: clear to auscultation bilaterally Cardio: Rate: tachycardic Rhythm: regular rhythm Peripheral pulses: Peripheral pulses 2+ throughout GI: Inspection: Yes normal to inspection Palpation (GI): Soft to palpation and Tenderness to palpation present (GI) (Diffusely tender-no rebound or guarding) Auscultation: normal bowel sounds : General: Yes no CVA tenderness Back/Spine/Pelvis: Other: Lower lumbar soft tissue tenderness on the right side with no midline tenderness, step-offs or deformities Back: no CVA tenderness Thoracic/Lumbar Spine: thoracic and lumbar spine normal to inspection Skin: General skin exam: no rashes or lesions noted Neuro: General: patient oriented x3, no meningeal signs, no focal motor deficits and normal sensation to monofilament Cranial nerves: Yes CN's II-XII intact bilaterally, Yes Equal, round and reactive pupils present, Yes Bilaterally intact EOM present, Yes Nystagmus not present, Yes Normal facial strength present and Yes Midline tongue present Cognition (Neuro): normal cognition Speech: No Abnormal speech present Gait exam (Neuro): Normal gait present Motor exam (neuro): 5/5 motor strength present throughout Sensory Exam: Normal double simultaneous stimulation for sensation Coordination: [id number] test normal and [id number] test normal Extrem: General: Yes normal to inspection Course Course Course Narrative: 35-year-old female with a past medical history of diabetes, chronic abdominal pain, pancreatitis, gastroparesis, s/p stimulator placement, anxiety, s/p right BKA presenting to the ED complaining of generalized abdominal pain, vomiting, back pain and headache with photophobia. Normal neurological exam. Abdomen is soft and nontender. Hemodynamically stable. Fees similar to previous gastroparesis episodes. -Very anxious, in pain. Mild tachycardia likely secondary to anxiety and pain. Will check labs, UA, COVID screen. Patient has very difficult IV access. Will plan for IM Dilaudid 2 mg, Reglan 10 mg. 1630-reviewed labs labs show a microcytic anemia unchanged from previous during admission December 14 to [facility]. Patient is noncompliant with her iron supplement. Denies active bleeding. Renal function at baseline. UA shows microscopic hematuria. Patiently is currently on her menses. No UTI symptoms. She is feeling improved. She did require a 2nd dose of Dilaudid and has fluids infusing. She is able to tolerate several sips of apple juice. Plan for re- evaluation 1730-Patient feeling improved, tolerating PO. Recommend she f/u with her outpatient providers. Reviewed worrisome signs and symptoms of when to return to the emergency department. Comfortable discharge home. Medical Decision Making MDM Narrative Medical decision making narrative: Gastroparesis, viral syndrome, gastroenteritis, migraine Medical Records Medical records reviewed: Yes I reviewed the patient's medical records. Lab Data Lab results reviewed: Yes I reviewed the patient's lab results. Result diagrams: 12/17/20 15:34 12/17/20 15:34 Labs: Lab Results 12/17/20 12/17/20 12/17/20 Range/Units 15:22 15:22 15:34 WBC 7.0 (4.8-10.8) X10*3/uL RBC 3.04 L (4.20-5.50) X10*6/uL Hgb 7.2 L (12.0-16.0) g/dl Hct 24.5 L (37-47) % MCV 80.6 (80-98) fL MCH 23.7 L (27.0-33.0) pg MCHC 29.4 L (31.0-35.0) g/dl RDW 17.7 H (11.0-16.0) % Plt Count 386 (160-400) X10*3/uL MPV 9.2 L (9.4-12.3) fL Immature Gran % (Auto) 0.3 (0.0-0.4) % Neut % (Auto) 68.3 (45-73) % Lymph % (Auto) 21.7 (20-40) % Lincoln % (Auto) 7.6 (2-11) % Eos % (Auto) 1.4 (0-4) % Baso % (Auto) 0.7 (0-2) % Lymph # (Auto) 1.5 (1.2-4.9) X10*3/uL Lincoln # (Auto) 0.5 (0.1-1.2) X10*3/uL Eos # (Auto) 0.1 (0.0-0.4) X10*3/uL Baso # (Auto) 0.1 (0.0-0.2) X10*3/uL Abs Immat Gran (auto) 0.02 (0.00-0.03) X10*3/uL Absolute Neuts (auto) 4.8 (2.0-8.3) X10*3/uL Absolute Nucleated RBC 0.000 (0.0-0.012) X10*3/uL Nucleated RBC % (auto) 0.0 (0.0-0.2) /100WBC Sodium (135-145) mmol/L Potassium (3.3-5.1) mmol/L Chloride (96-108) mmol/L Carbon Dioxide (22-29) mmol/L Anion Gap (12-20) BUN (9-16) mg/dL Creatinine (0.5-1.4) mg/dL Estim Creat Clear Calc Estimated GFR Random Glucose (60-115) mg/dL Calcium (8.4-10.2) mg/dL Total Bilirubin (0.0-1.0) mg/dL Direct Bilirubin (0.0-0.5) mg/dL AST (5-31) U/L ALT (0-31) U/L Alkaline Phosphatase (39-117) U/L Total Protein (6.5-8.0) g/dL Albumin (3.5-5.0) g/dL Lipase (8-78) U/L Urine Color YELLOW Urine Appearance CLEAR Urine pH 6.5 (5.0-8.0) Ur Specific Delta 1.015 (1.005-1.025) Urine Protein 1+ H (NEG-TRACE) MG/DL Urine Glucose (UA) NEG (NEG) MG/DL Urine Ketones NEG (NEG) MG/DL Urine Blood 1+ H (NEG) Urine Nitrite NEG (NEG) Ur Leukocyte Esterase NEG (NEG) Urine RBC 0-2 (0) /HPF Urine WBC 0-2 (0-4) /HPF Ur Squamous Epith Cells 1+ /LPF Urine Bacteria TRACE /LPF Urine Test NEGATIVE (NEGATIVE) 12/17/20 Range/Units 15:34 WBC (4.8-10.8) X10*3/uL RBC (4.20-5.50) X10*6/uL Hgb (12.0-16.0) g/dl Hct (37-47) % MCV (80-98) fL MCH (27.0-33.0) pg MCHC (31.0-35.0) g/dl RDW (11.0-16.0) % Plt Count (160-400) X10*3/uL MPV (9.4-12.3) fL Immature Gran % (Auto) (0.0-0.4) % Neut % (Auto) (45-73) % Lymph % (Auto) (20-40) % Lincoln % (Auto) (2-11) % Eos % (Auto) (0-4) % Baso % (Auto) (0-2) % Lymph # (Auto) (1.2-4.9) X10*3/uL Lincoln # (Auto) (0.1-1.2) X10*3/uL Eos # (Auto) (0.0-0.4) X10*3/uL Baso # (Auto) (0.0-0.2) X10*3/uL Abs Immat Gran (auto) (0.00-0.03) X10*3/uL Absolute Neuts (auto) (2.0-8.3) X10*3/uL Absolute Nucleated RBC (0.0-0.012) X10*3/uL Nucleated RBC % (auto) (0.0-0.2) /100WBC Sodium 137 (135-145) mmol/L Potassium 4.9 D (3.3-5.1) mmol/L Chloride 109 H (96-108) mmol/L Carbon Dioxide 22 (22-29) mmol/L Anion Gap 11 L (12-20) BUN 13 (9-16) mg/dL Creatinine 1.57 H (0.5-1.4) mg/dL Estim Creat Clear Calc 49.9 Estimated GFR 37 Random Glucose 130 H (60-115) mg/dL Calcium 9.1 (8.4-10.2) mg/dL Total Bilirubin 0.2 (0.0-1.0) mg/dL Direct Bilirubin < 0.2 (0.0-0.5) mg/dL AST 15 (5-31) U/L ALT 14 (0-31) U/L Alkaline Phosphatase 95 (39-117) U/L Total Protein 7.1 (6.5-8.0) g/dL Albumin 4.0 (3.5-5.0) g/dL Lipase 51 (8-78) U/L Urine Color Urine Appearance Urine pH (5.0-8.0) Ur Specific Delta (1.005-1.025) Urine Protein (NEG-TRACE) MG/DL Urine Glucose (UA) (NEG) MG/DL Urine Ketones (NEG) MG/DL Urine Blood (NEG) Urine Nitrite (NEG) Ur Leukocyte Esterase (NEG) Urine RBC (0) /HPF Urine WBC (0-4) /HPF Ur Squamous Epith Cells /LPF Urine Bacteria /LPF Urine Test (NEGATIVE) Discharge Plan Discharge Clinical Impression: Chronic abdominal pain, Chronic iron deficiency anemia Patient Disposition: Home, Self-Care Instructions: Abdominal Pain (ED), Iron Deficiency Anemia (ED) Additional Instructions: Continued follow-up with your providers Prescriptions: No Action acetaminophen [Pain Reliever (acetaminophen)] 325 mg tablet 325 mg PO TID 30 Days Qty: 90 RF: 0 lorazepam 0.5 mg tablet 0.5 mg PO DAILY PRN (Reason: anxiety) 2 Days Qty: 2 RF: 0 miscellaneous medical supply Misc 1 ea miscellaneous DAILY 99 Days Qty: 2 RF: 0 meloxicam 15 mg tablet 15 mg PO DAILY Qty: 30 RF: 2 acetaminophen-codeine 300-30 mg tablet 1 tab PO DAILY 15 Days Qty: 15 RF: 2 Hold Instructions: Resume on 04/17/20. gabapentin 100 mg capsule PO RF: 0 metoclopramide HCl [Reglan] 10 mg tablet 10 mg PO Q6H PRN (Reason: nausea and vomiting) Qty: 20 RF: 0 ondansetron 4 mg tablet,disintegrating 4 mg PO Q6-8H PRN (Reason: nausea and vomiting) Qty: 20 RF: 0 ondansetron 4 mg tablet,disintegrating 4 mg PO Q6-8H PRN (Reason: nausea and vomiting) Qty: 14 RF: 0 omeprazole 20 mg capsule,delayed release(DR/EC) 20 mg PO DAILY RF: 0 insulin glargine 100 unit/mL (3 mL) insulin pen subcut RF: 0 insulin lispro 100 unit/mL insulin pen subcut RF: 0 lisinopril 5 mg tablet 5 mg PO DAILY RF: 0 cyclobenzaprine 10 mg tablet 10 mg PO BEDTIME 20 Days Qty: 20 RF: 0 naproxen 500 mg tablet 500 mg PO BID 10 Days Qty: 20 RF: 0 insulin lispro [Humalog KwikPen Insulin] 100 unit/mL insulin pen 5 unit subcut TID 30 Days Qty: 15 RF: 2 Referrals: Physician,Unknown [Primary Care Provider] - 2 days Interventions: ED Discharge Assessment Last Done: 12/17/20 18:05 Discharge Date/Time: 12/17/20 18:06
[2020-12-17] MEDS: HYDROmorphone HCl 2 MG/ML VIAL IM (12:03)
[2020-12-17] MEDS: Metoclopramide HCl 10 MG/2 ML VIAL IM (12:03)
--- NOTE | 2020-12-17 14:21 | PC.NURSE ---
pt difficult stick, phlebotomy asked to come for blooddraw
[2020-12-17 15:24] VITALS: BP 142/75; PULSE 106; RESP 16; O2SAT 100
--- NOTE | 2020-12-17 15:25 | PC.NURSE ---
BLOOD DRAW HAS BEEN ATTEMPTED, PHLEBOTOMY STILL NOT HERE. THIRD CALL MADE DOWN FOR ASSISTANCE, EXPECTING THEM SOON.
[2020-12-17 15:36] LABS: Glucose Urine UA NEG (NEG); Leukocyte Esterase Urine NEG (NEG); Nitrite Urine NEG (NEG); PH 6.5 (5.0-8.0); Specific Gravity - Urine 1.015 (1.005-1.025); UACC Culture Trigger NO; Urine Blood 1+ (NEG); Urine Ketones NEG (NEG); Urine Protein 1+ MG/DL (NEG-TRACE)
[2020-12-17 15:38] LABS: MANUAL DIFF FLAG NO
[2020-12-17 15:42] LABS: Appearance Urine CLEAR; Color Urine YELLOW
[2020-12-17 15:43] LABS: Basophils Absolute Auto 0.1 X10*3/uL (0.0-0.2); Basophils Percent Auto 0.7 % (0-2); Eosinophils Absolute Auto 0.1 X10*3/uL (0.0-0.4); Eosinophils Percent Auto 1.4 % (0-4); Hematocrit 24.5 % (37-47); Hemoglobin 7.2 g/dl (12.0-16.0); Imm Gran Abs Auto 0.02 X10*3/uL (0.00-0.03); Imm Gran Pct Auto 0.3 % (0.0-0.4); Lymphocytes Absolute Auto 1.5 X10*3/uL (1.2-4.9); Lymphocytes Percent Auto 21.7 % (20-40); Mean Corpuscular HGB Conc 29.4 g/dl (31.0-35.0); Mean Corpuscular Hemoglobin 23.7 pg (27.0-33.0); Mean Corpuscular Volume 80.6 fL (80-98); Mean Platelet Volume 9.2 fL (9.4-12.3); Monocytes Absolute Auto 0.5 X10*3/uL (0.1-1.2); Monocytes Percent Auto 7.6 % (2-11); Neutrophils Absolute Auto 4.8 X10*3/uL (2.0-8.3); Neutrophils Percent Auto 68.3 % (45-73); Platelet Count 386 X10*3/uL (160-400); Red Blood Count 3.04 X10*6/uL (4.20-5.50); Red Cell Distribution Width 17.7 % (11.0-16.0)
[2020-12-17 15:52] LABS: Bacteria Urine TRACE /LPF; RBC Urine 0-2 /HPF (0); Squamous Epithelial Cell Urine 1+ /LPF; WBC Urine 0-2 /HPF (0-4)
[2020-12-17] MEDS: 0.9 % Sodium Chloride 1,000 ML 999 ML IV (16:00)
[2020-12-17] MEDS: HYDROmorphone HCl 1 MG/ML SYRINGE 0.5 MG IVPUSH (16:00)
[2020-12-17 16:02] VITALS: BP 159/91; PULSE 96; RESP 16
[2020-12-17 16:07] LABS: Alanine Aminotransferase 14 U/L (0-31); Alkaline Phosphatase 95 U/L (39-117); Anion Gap 11 (12-20); Aspartate Amino Transferase 15 U/L (5-31); Bilirubin Direct < 0.2 mg/dL (0.0-0.5); Bilirubin Total 0.2 mg/dL (0.0-1.0); Blood Urea Nitrogen 13 mg/dL (9-16); Calcium 9.1 mg/dL (8.4-10.2); Carbon Dioxide 22 mmol/L (22-29); Chloride 109 mmol/L (96-108); Creatinine Clr Calc Pharmacy 49.9; Estimated Glomerular Filt Rate 37; Glucose Random 130 mg/dL (60-115); Lipase 51 U/L (8-78); Potassium 4.9 mmol/L (3.3-5.1); Sodium 137 mmol/L (135-145); Total Protein 7.1 g/dL (6.5-8.0)
[2020-12-17 16:26] LABS: UPreg QC Valid YES; Urine Pregnancy NEGATIVE (NEGATIVE)
[2020-12-17] MEDS: HYDROmorphone HCl 0.5 MG/0.5 ML SYRINGE IVPUSH (17:45)
[2020-12-17 18:26] LABS: Influenza A PCR NEGATIVE (Negative); Influenza B PCR NEGATIVE (Negative); Resp Syncy Virus RNA Qual PCR NEGATIVE (Negative); SARS COV2 PCR INHOUSE NEGATIVE (Negative)
== END 2020-12-17 18:06 | disposition home or self-care (01) ==
PROVIDERS: Nurse Practitioner Family; Emergency Provider Emergency Medicine
DX: R10.9 Unspecified abdominal pain (principal); D50.9 Iron deficiency anemia, unspecified; M54.5 Low back pain; R51.9 Headache, unspecified; E11.9 Type 2 diabetes mellitus without complications; F12.90 Cannabis use, unspecified, uncomplicated; Z20.822 Contact with and (suspected) exposure to COVID-19; Z79.4 Long term (current) use of insulin; Z79.899 Other long term (current) drug therapy
CPT/HCPCS: 0241U; 36415; 80048; 80076; 81001; 81025; 83690; 85025; 96365; 96372; 96375; 96376; 99284; J1170; J2405; J2765

== ENCOUNTER 2021-02-09 09:39 | Observation (INO) | payer OTHER, SELFPAY ==
--- NOTE | ~2021-02-09 | CT_ITS ---
EXAMINATION: CT ABDOMEN AND PELVIS WITHOUT CONTRAST CLINICAL INFORMATION: Flank pain. COMPARISON: CT abdomen pelvis 3 1 TECHNIQUE: Multidetector volumetric imaging was performed from the superior aspect of the liver through the pubic symphysis. [address] examination was performed using dose optimization techniques as appropriate, variously including the following: *Automated exposure control *Adjustment of mA and/or kV according to patient size (this includes techniques or standardized protocols for targeted exams where dose is matched to indication/reason for exam; i.e. extremities or head) *Use of iterative reconstruction technique DLP: 479 mGy-cm FINDINGS: LUNG BASES: The visualized lung bases are unremarkable. LIVER, GALLBLADDER, AND BILIARY TREE: The liver is normal in size, shape, and attenuation. No focal hepatic lesion or biliary ductal dilatation is present. The gallbladder is unremarkable with no evidence of radiopaque gallstones, gallbladder wall thickening, or obvious pericholecystic inflammatory changes. PANCREAS: Unremarkable. SPLEEN: Unremarkable. ADRENAL GLANDS: Unremarkable. KIDNEYS AND URETERS: The kidneys are normal in size, shape, and attenuation. No hydronephrosis, hydroureter, or calculi seen. No perinephric stranding. There are scattered calcifications likely vascular in the renal hilum. BLADDER: Unremarkable. GASTROINTESTINAL TRACT: There is scattered stool and gas seen throughout the colon without distention. The small bowel loops are normal. Appendix is normal caliber. No free air or free fluid seen. ABDOMINAL WALL: No significant hernia is appreciated. There is a new chest the hardware in the left upper abdomen. LYMPH NODES: Normal. VASCULAR: Unremarkable. PELVIC VISCERA: No free air or free fluid seen. The uterus is midline. No adnexal mass seen. OSSEOUS STRUCTURES: No lytic or sclerotic process seen. CT/CT abdomen pelvis wo con IMPRESSION: No acute intra-abdominal process seen. No radiopaque urolith except for vascular calcifications in the renal hilum. No hydronephrosis. Mild constipation.
[2021-02-09 10:19] VITALS: BP 127/74; PULSE 98; RESP 20; TEMP 37.3; O2SAT 96; BMI 25.8
--- NOTE | 2021-02-09 10:37 | ED_ITS ---
HPI - Abdominal Pain General Chief Complaint: Back Pain/Injury Stated Complaint: abd pain Time Seen by Provider: 02/09/21 10:36 Source: patient Mode of arrival: ambulatory Limitations: no limitations History of Present Illness HPI narrative: 35-year-old female past medical history significant for CKD, diabetes, gastroparesis BKA, chronic abdominal pain presents to the emergency department with 6 days of bilateral flank pain, and decreased urination. She reports that for the last couple weeks her pain has been progressively worsening. She also mentioned she is having discomfort when she urinates, but she has noticed decreased urination, and decreased urinary stream. She mentions vague complaints of chest pain, centralized, intermittent, and nonradiating in nature. She also mentions she has had a runny nose and sore throat for a few days. She denies nausea, vomiting, fevers, chills, shortness of breath, recent sick contacts. MD elicited complaint: flank pain (Bilateral) Pertinent past history: other (Gastroparesis,DM) Onset (ago): day(s) (Six) Pain Consistency: constant Related Data Home Medications Medication Instructions Recorded Confirmed gabapentin 100 mg capsule 100 mg PO DAILY 02/15/20 02/09/21 insulin glargine 100 unit/mL (3 60 unit SUBCUT BEDTIME 04/08/20 02/09/21 mL) subcutaneous pen insulin lispro 100 unit/mL 22 unit SUBCUT TIDAC 04/08/20 02/09/21 subcutaneous pen lisinopril 5 mg tablet 5 mg PO DAILY 04/08/20 02/09/21 omeprazole 20 mg capsule,delayed 20 mg PO DAILY 04/08/20 02/09/21 release cyanocobalamin (vitamin B-12) 100 1 tab PO DAILY 02/09/21 02/09/21 mcg tablet ferrous sulfate 325 mg (65 mg 1 tab PO DAILY 02/09/21 02/09/21 iron) tablet,delayed release metoclopramide HCl 10 mg tablet 1 tab PO QID PRN 02/09/21 02/09/21 Previous Rx's Medication Instructions Recorded naproxen 500 mg tablet 500 mg PO BID 10 Days #20 tab 06/04/20 miscellaneous medical supply 1 ea MISCELLANEOUS DAILY 99 Days 09/15/20 #2 ea ondansetron 4 mg disintegrating 4 mg PO Q6-8H PRN #14 tab 11/14/20 tablet acetaminophen 300 mg-codeine 30 mg 1 tab PO DAILY 15 Days #15 tab 12/17/20 tablet Allergies Allergy/AdvReac Type Severity Reaction Status Date / Time morphine [MORPHINE] Allergy Unknown HIVES Verified 01/05/21 16:47 raspberry [Raspberry] Allergy Unknown HIVES Verified 01/05/21 16:47 nitrofurantoin AdvReac Unknown GI side Verified 01/05/21 16:47 [From Macrobid] effects Review of Systems Review of Systems Constitutional : No Weight loss, No Fever, No Chills, No Fatigue, No Malaise ENT/Mouth : no sore throat, no Rhinorrhea Eyes: No Eye Pain, No Swelling, No Redness Cardiovascular :no Chest Pain, No SOB, No Dyspnea on Exertion, No Orthopnea, No Edema, No Palpitations Respiratory : No Cough, No Sputum, No Wheezing Gastrointestinal : pos Nausea, No Vomiting, No Diarrhea, No Constipation, pos abdominal Pain, No Hematochezia, No Melena Genitourinary : + Dysuria, + decreased urinary stream, No Hematuria, Musculoskeletal : + flank pain, No Myalgias, No Joint Swelling Skin : No Skin Lesions, No rash Neuro : No Weakness, No Numbness, No Dizziness, No Headache All other systems reviewed and are negative Physical Exam Vital Signs: Vital Signs: Last Vital Signs Temp 99.1 F 02/09/21 10:19 Pulse 78 02/09/21 14:10 Resp 18 02/09/21 14:10 BP 131/79 02/09/21 14:10 Pulse Ox 99 02/09/21 14:10 Body Mass Index 25.8 Appearance: Alert. Oriented X3. No acute distress. Eyes: Pupils equal, round and reactive to light. ENT: Pharynx normal. No exudates or erythema. Neck: Normal inspection. Neck supple. CVS: Normal heart rate and rhythm. Pulses normal. Respiratory: No respiratory distress. Breath sounds normal. Abdomen: Soft and + diffusely tender. Back: + b/l CVA tenderness Skin: Skin warm and dry. Normal skin color. Normal skin turgor. Extremities: No lower extremity edema. No calf ttp Neuro: Oriented X 3. No motor deficit. No sensory deficit. Course Course Course Narrative: Upon re-evaluation patient states that she is still having 10/10 bilateral flank pain. She also now mentions she has been nauseous X6 days and is currently nauseous. She appears uncomfortable. She will be medicated with Dilaudid for the pain. Patient's creatinine and 2.84, BUN 32. Patient has been hydrated. She is on her 2nd L of fluids. CT of abdomen and pelvis ordred and pending to rule out a possible obstrucing stone. Based on these results will determine disposition. given JONNY will admit for further workup - hospitalist team aware Reevaluation(s) Reevaluation #1: Bladder scan was done prior to patient voiding in the 302 PVR was 3. Not worried about urinary retention at this time. Urine is clean and not concerned for UTI MDM - Abdominal Pain MDM Narrative Medical decision making narrative: 35 yo female with CRI, IDDM, non compliance, gastroparesis comes in with flank pain, nausea and feels the urge to go but cannot urinate - at this time will obtain labs, provide supportive meds, UA for infection, CT scan to stone, dispo per results and findings. Lab Data Result diagrams: 02/09/21 11:51 02/09/21 11:51 Labs: Lab Results 02/09/21 02/09/21 02/09/21 Range/Units 11:51 11:51 13:14 WBC 6.0 (4.8-10.8) X10*3/uL RBC 3.26 L (4.20-5.50) X10*6/uL Hgb 7.5 L (12.0-16.0) g/dl Hct 25.3 L (37-47) % MCV 77.6 L (80-98) fL MCH 23.0 L (27.0-33.0) pg MCHC 29.6 L (31.0-35.0) g/dl RDW 17.3 H (11.0-16.0) % Plt Count 337 (160-400) X10*3/uL MPV 8.9 L (9.4-12.3) fL Immature Gran % (Auto) 0.3 (0.0-0.4) % Neut % (Auto) 57.9 (45-73) % Lymph % (Auto) 31.1 (20-40) % [place] % (Auto) 8.1 (2-11) % Eos % (Auto) 1.8 (0-4) % Baso % (Auto) 0.8 (0-2) % Lymph # (Auto) 1.9 (1.2-4.9) X10*3/uL [place] # (Auto) 0.5 (0.1-1.2) X10*3/uL Eos # (Auto) 0.1 (0.0-0.4) X10*3/uL Baso # (Auto) 0.1 (0.0-0.2) X10*3/uL Abs Immat Gran (auto) 0.02 (0.00-0.03) X10*3/uL Absolute Neuts (auto) 3.5 (2.0-8.3) X10*3/uL Absolute Nucleated RBC 0.000 (0.0-0.012) X10*3/uL Nucleated RBC % (auto) 0.0 (0.0-0.2) /100WBC Sodium 137 (135-145) mmol/L Potassium 4.3 (3.3-5.1) mmol/L Chloride 104 (96-108) mmol/L Carbon Dioxide 23 (22-29) mmol/L Anion Gap 14 (12-20) BUN 32 H D (9-16) mg/dL Creatinine 2.84 H (0.5-1.4) mg/dL Estim Creat Clear Calc 28.9 Estimated GFR 19 Random Glucose 150 H (60-115) mg/dL Lactic Acid 1.4 (0.5-2.0) mmol/L Calcium 8.6 (8.4-10.2) mg/dL Magnesium 2.2 (1.6-2.6) mg/dL Total Bilirubin 0.3 (0.0-1.0) mg/dL Direct Bilirubin < 0.2 (0.0-0.5) mg/dL AST 28 D (5-31) U/L ALT 30 (0-31) U/L Alkaline Phosphatase 99 (39-117) U/L Total Protein 7.6 (6.5-8.0) g/dL Albumin 4.2 (3.5-5.0) g/dL Lipase 92 H (8-78) U/L Urine Color Urine Appearance Urine pH (5.0-8.0) Ur Specific [place] (1.005-1.025) Urine Protein (NEG-TRACE) MG/DL Urine Glucose (UA) (NEG) MG/DL Urine Ketones (NEG) MG/DL Urine Blood (NEG) Urine Nitrite (NEG) Ur Leukocyte Esterase (NEG) Urine Test (NEGATIVE) COVID-19 (FANNIE) (Negative) COVID-19 Clin Com 02/09/21 02/09/21 02/09/21 Range/Units 13:14 13:14 14:40 WBC (4.8-10.8) X10*3/uL RBC (4.20-5.50) X10*6/uL Hgb (12.0-16.0) g/dl Hct (37-47) % MCV (80-98) fL MCH (27.0-33.0) pg MCHC (31.0-35.0) g/dl RDW (11.0-16.0) % Plt Count (160-400) X10*3/uL MPV (9.4-12.3) fL Immature Gran % (Auto) (0.0-0.4) % Neut % (Auto) (45-73) % Lymph % (Auto) (20-40) % [place] % (Auto) (2-11) % Eos % (Auto) (0-4) % Baso % (Auto) (0-2) % Lymph # (Auto) (1.2-4.9) X10*3/uL [place] # (Auto) (0.1-1.2) X10*3/uL Eos # (Auto) (0.0-0.4) X10*3/uL Baso # (Auto) (0.0-0.2) X10*3/uL Abs Immat Gran (auto) (0.00-0.03) X10*3/uL Absolute Neuts (auto) (2.0-8.3) X10*3/uL Absolute Nucleated RBC (0.0-0.012) X10*3/uL Nucleated RBC % (auto) (0.0-0.2) /100WBC Sodium (135-145) mmol/L Potassium (3.3-5.1) mmol/L Chloride (96-108) mmol/L Carbon Dioxide (22-29) mmol/L Anion Gap (12-20) BUN (9-16) mg/dL Creatinine (0.5-1.4) mg/dL Estim Creat Clear Calc Estimated GFR Random Glucose (60-115) mg/dL Lactic Acid (0.5-2.0) mmol/L Calcium (8.4-10.2) mg/dL Magnesium (1.6-2.6) mg/dL Total Bilirubin (0.0-1.0) mg/dL Direct Bilirubin (0.0-0.5) mg/dL AST (5-31) U/L ALT (0-31) U/L Alkaline Phosphatase (39-117) U/L Total Protein (6.5-8.0) g/dL Albumin (3.5-5.0) g/dL Lipase (8-78) U/L Urine Color YELLOW Urine Appearance HAZY Urine pH 6.0 (5.0-8.0) Ur Specific [place] 1.020 (1.005-1.025) Urine Protein NEG (NEG-TRACE) MG/DL Urine Glucose (UA) NEG (NEG) MG/DL Urine Ketones NEG (NEG) MG/DL Urine Blood NEG (NEG) Urine Nitrite NEG (NEG) Ur Leukocyte Esterase NEG (NEG) Urine Test NEGATIVE (NEGATIVE) COVID-19 (FANNIE) Negative (Negative) COVID-19 Clin Com See Note Discharge Plan Discharge Clinical Impression: Bilateral flank pain, Nausea, JONNY (acute kidney injury) Patient Disposition: Admitted As Inpatient [facility] Past Medical History Attestation statement: The following information was validated with the patient. Source: old records reviewed Medical History Amput below knee, unilat Anxiety Chronic kidney disease Diabetes Hordeolum externum of right eye Hypertension Surgical History History of right cataract surgery Family History Family History (Updated 01/05/21 @ 16:41 by Kenyatta Reza) Father Hyperlipidemia Mother Stomach cancer Sister Diabetes Mental health disorder Social History Social History Housing: Apartment Alcohol intake: never Patient Tobacco Use Status: Never used Tobacco Second Hand Smoke Exposure: No Substance Use Type: Marijuana Advance Directives: Yes Advance Directives on File: Yes Advance Directives Date on File: 04/10/20 service: No Current occupational status: disabled
[2021-02-09] MEDS: Metoclopramide HCl 10 MG/2 ML VIAL 5 MG IM (11:17)
[2021-02-09] MEDS: HYDROmorphone HCl 2 MG TABLET PO ×2 (11:18→17:26)
[2021-02-09 11:58] LABS: MANUAL DIFF FLAG NO
[2021-02-09 11:59] LABS: Basophils Absolute Auto 0.1 X10*3/uL (0.0-0.2); Basophils Percent Auto 0.8 % (0-2); Eosinophils Absolute Auto 0.1 X10*3/uL (0.0-0.4); Eosinophils Percent Auto 1.8 % (0-4); Hematocrit 25.3 % (37-47); Hemoglobin 7.5 g/dl (12.0-16.0); Imm Gran Abs Auto 0.02 X10*3/uL (0.00-0.03); Imm Gran Pct Auto 0.3 % (0.0-0.4); Lymphocytes Absolute Auto 1.9 X10*3/uL (1.2-4.9); Lymphocytes Percent Auto 31.1 % (20-40); Mean Corpuscular HGB Conc 29.6 g/dl (31.0-35.0); Mean Corpuscular Volume 77.6 fL (80-98); Mean Platelet Volume 8.9 fL (9.4-12.3); Monocytes Absolute Auto 0.5 X10*3/uL (0.1-1.2); Monocytes Percent Auto 8.1 % (2-11); Neutrophils Absolute Auto 3.5 X10*3/uL (2.0-8.3); Neutrophils Percent Auto 57.9 % (45-73); Platelet Count 337 X10*3/uL (160-400); Red Blood Count 3.26 X10*6/uL (4.20-5.50); Red Cell Distribution Width 17.3 % (11.0-16.0)
[2021-02-09 12:16] LABS: Alanine Aminotransferase 30 U/L (0-31); Albumin Level 4.2 g/dL (3.5-5.0); Alkaline Phosphatase 99 U/L (39-117); Anion Gap 14 (12-20); Aspartate Amino Transferase 28 U/L (5-31); Bilirubin Direct < 0.2 mg/dL (0.0-0.5); Bilirubin Total 0.3 mg/dL (0.0-1.0); Blood Urea Nitrogen 32 mg/dL (9-16); Calcium 8.6 mg/dL (8.4-10.2); Carbon Dioxide 23 mmol/L (22-29); Chloride 104 mmol/L (96-108); Creatinine Clr Calc Pharmacy 28.9; Estimated Glomerular Filt Rate 19; Glucose Random 150 mg/dL (60-115); Lipase 92 U/L (8-78); Magnesium 2.2 mg/dL (1.6-2.6); Potassium 4.3 mmol/L (3.3-5.1); Sodium 137 mmol/L (135-145); Total Protein 7.6 g/dL (6.5-8.0)
[2021-02-09] MEDS: 0.9 % Sodium Chloride 1,000 ML 999 ML IV (13:27)
[2021-02-09 13:35] LABS: UPreg QC Valid YES; Urine Pregnancy NEGATIVE (NEGATIVE)
[2021-02-09 13:36] LABS: Appearance Urine HAZY; Color Urine YELLOW; Glucose Urine UA NEG (NEG); Leukocyte Esterase Urine NEG (NEG); Nitrite Urine NEG (NEG); Urine Blood NEG (NEG); Urine Ketones NEG (NEG); Urine Protein NEG (NEG-TRACE)
[2021-02-09 13:47] LABS: Lactic Acid 1.4 mmol/L (0.5-2.0)
[2021-02-09] MEDS: HYDROmorphone HCl 2 MG/ML VIAL IVPUSH (14:03)
[2021-02-09 14:10] VITALS: BP 131/79; PULSE 78; RESP 18; O2SAT 99
[2021-02-09 15:01] LABS: IDNOW Serial# 9DD0AD1C
[2021-02-09 15:02] LABS: COVID-19 Test Negative (Negative)
[2021-02-09] MEDS: ondansetron HCL 4 MG/2 ML VIAL IVPUSH (15:02)
--- NOTE | 2021-02-09 15:35 | PHA.MEDREC ---
Pharmacy Consult ? Medication Reconciliation Pharmacy has completed the medication reconciliation.
--- NOTE | 2021-02-09 16:11 | PM.IMHP ---
History of Present Illness Date of Service: 02/09/21 35 year old with CKD3 that has been stable, diabetes on insulin and HTN that is controlled. She presents to the ED with c/o back pain that is ongoing for several days, UA is normal, no fever, CT of abdomen and pelvis shows no acute finding. Her creatinine is 2.84 before it was 1.51, she has been hydrated and is been observed overnight. She is not yet vaccinated for covid Review of Systems Review of Systems: Gen: no fever Resp: no sob, no cough CV: no chest, no JON, no leg edema GI: No n/v, no abd pain Neuro: No confusion back pain Yes all other systems are reviewed and are negative [facility] Medical History (Updated 02/09/21 @ 16:26 by Kt Posada MD) Anxiety Chronic kidney disease Diabetes Hordeolum externum of right eye Hypertension Family History Father Hyperlipidemia Mother Stomach cancer Sister Diabetes Mental health disorder Pertinent family history: . Surgical History (Updated 02/09/21 @ 16:26 by Kt Posada MD) History of right cataract surgery Hx of right BKA Social History Housing: Apartment Alcohol intake: never Patient Tobacco Use Status: Never used Tobacco Second Hand Smoke Exposure: No Substance Use Type: Marijuana Advance Directives: Yes Advance Directives on File: Yes Advance Directives Date on File: 04/10/20 service: No Current occupational status: disabled Meds Allergies Allergy/AdvReac Type Severity Reaction Status Date / Time morphine [MORPHINE] Allergy Unknown HIVES Verified 01/05/21 16:47 raspberry [Raspberry] Allergy Unknown HIVES Verified 01/05/21 16:47 nitrofurantoin AdvReac Unknown GI side Verified 01/05/21 16:47 [From Macrobid] effects Active Medications: Current Medications Melatonin (Melatonin 3 Mg Tablet) 6 mg PO BEDTIME PRN PRN Reason: Insomnia Pharmacy Consult (Consult Rx Perform Med Rec) 1 each MISCELLANE ONCE PRN PRN Reason: Consult order Sodium Chloride (0.9 % Sodium Chloride Flush 3 Ml Syringe) 3 ml IVFLUSH [facility] Home Medications Medication Instructions Recorded Confirmed Last Taken Type gabapentin 100 mg capsule 100 mg PO DAILY 02/15/20 02/09/21 Unknown History insulin glargine 100 unit/mL (3 60 unit SUBCUT BEDTIME 04/08/20 02/09/21 Unknown History mL) subcutaneous pen insulin lispro 100 unit/mL 22 unit SUBCUT TIDAC 04/08/20 02/09/21 Unknown History subcutaneous pen lisinopril 5 mg tablet 5 mg PO DAILY 04/08/20 02/09/21 Unknown History omeprazole 20 mg capsule,delayed 20 mg PO DAILY 04/08/20 02/09/21 Unknown History release cyanocobalamin (vitamin B-12) 100 1 tab PO DAILY 02/09/21 02/09/21 Unknown History mcg tablet ferrous sulfate 325 mg (65 mg 1 tab PO DAILY 02/09/21 02/09/21 Unknown History iron) tablet,delayed release metoclopramide HCl 10 mg tablet 1 tab PO QID PRN 02/09/21 02/09/21 Unknown History Physical Exam Vital Signs and Narrative: Vital Signs: Last Vital Signs Temp 99.1 F 02/09/21 10:19 Pulse 78 02/09/21 14:10 Resp 18 02/09/21 14:10 BP 131/79 02/09/21 14:10 Pulse Ox 99 02/09/21 14:10 Body Mass Index 25.8 Constitutional Awake and Alert, No apparent distress Neck Supple, No lymphadenopathy Cardiovascular RRR, No M/R/G, S1 S2, No S3 S4, No pedal edema Respiratory Lungs clear, No respiratory distress Gastrointestinal Non tender, Non-distended Skin No rash Neurological Alert & oriented x3 Psychological Appropriate affect Results Labs CBC and Chem 7: 02/09/21 11:51 02/09/21 11:51 Imaging Radiologist's Impressions: Impressions Abdomen/Pelvis CT 02/09/21 10:38 IMPRESSION: No acute intra-abdominal process seen. No radiopaque urolith except for vascular calcifications in the renal hilum. No hydronephrosis. Mild constipation. Assessment and Plan (1) JONNY (acute kidney injury): Status: Acute (2) Bilateral flank pain: Status: Acute 35/F with DM, HTN, CKD here with mild JONNY, angie back pain 1/JONNY--hydrate and repeat labs in the morning 2/back pain, there is no evidence of kidey issues such as stone or infection -symptomatic treatement with pain meds 3/Diabetes--Lantus + Pre meal insulin 4/HTN--continue Lisinopril DVT prohylaxis--low risk, likely dc tomorrow Educated andvised to get covid vaccine. Quality Stroke Does the patient have a stroke diagnosis?: No VTE Prior VTE?: No VTE Risk Level:: Medical - low VTE Device Contraindication: N/A - Device Ordered VTE Drug Contraindication: Treatment Not Indicated
--- NOTE | 2021-02-09 18:12 | MHC.CM.PN ---
CM met with patient placed to observation. with bed assignment pending. MONAE reviewed and signed. Pt requested HCP to be changed. HCP on longer Teresa Lazo. New HCP/brother Ed Owen ([phone]). HCP reviewed, completed and signed. Copies given Uploaded into [employer] and [employer]. Lives with Tarah Smith([phone]). Has R BKA and has a prosthesis. Has diabetic testing supplies. Has not received any Covid Vaccinations. States she is scared to receive it. CM explained that she cannot get Covid from the vaccine and that it is very important with her medical history that she get the vaccine. Encouraged pt to go to [facility] to get a vaccine. D/C plan is home without services. Transportation arranged by patient. CM to follow for d/c needs.
--- NOTE | 2021-02-09 18:13 | PC.NURSE ---
pt requesting IV pain medication instead of PO d/t pain. hospital paged to request.
[2021-02-09] MEDS: 0.9 % Sodium Chloride 500 ML IV (18:41)
[2021-02-09] MEDS: 0.9 % Sodium Chloride Flush 3 ML SYRINGE IVFLUSH ×2 (18:41→21:09)
--- NOTE | 2021-02-09 19:37 | PC.NURSE ---
Pt alert and oriented x4, calm and cooperative. Pt states low back pain at this time. IV intact. Vitals stable. Pt resting in stretcher, will continue to moniotr.
[2021-02-09 20:05] VITALS: BMI 25.0
[2021-02-09 20:09] VITALS: BP 120/76; PULSE 73; RESP 18; TEMP 36; O2SAT 97
[2021-02-09 20:31] LABS: Glucose, Whole Blood 127 mg/dL (60-115)
[2021-02-09] MEDS: HYDROmorphone HCl 0.5 MG/0.5 ML SYRINGE IVPUSH (21:08)
[2021-02-09] MEDS: 0.9 % Sodium Chloride 1,000 ML 100 ML IVCONT (21:08)
[2021-02-09] MEDS: Insulin Glargine,Hum.rec.anlog 100 UNIT/ML 10 ML VIAL 30 UNIT SUBCUT (21:08)
[2021-02-10] VITALS: BP 120/62; PULSE 83; RESP 16; TEMP 36.2; O2SAT 99
[2021-02-10] MEDS: HYDROmorphone HCl 2 MG TABLET PO ×2 (03:24→13:53)
[2021-02-10 03:25] VITALS: BP 136/87; PULSE 107; RESP 18; TEMP 36.1; O2SAT 100
[2021-02-10] MEDS: HYDROmorphone HCl 0.5 MG/0.5 ML SYRINGE IVPUSH (04:29)
[2021-02-10] MEDS: Omeprazole 20 MG CAPSULE.DR PO (05:57)
[2021-02-10 06:06] LABS: Anion Gap 12 (12-20); Blood Urea Nitrogen 25 mg/dL (9-16); Calcium 8.2 mg/dL (8.4-10.2); Carbon Dioxide 22 mmol/L (22-29); Chloride 106 mmol/L (96-108); Creatinine Clr Calc Pharmacy 41.3; Estimated Glomerular Filt Rate 31; Glucose Random 106 mg/dL (60-115); Potassium 4.2 mmol/L (3.3-5.1); Sodium 136 mmol/L (135-145)
[2021-02-10] MEDS: Ondansetron ODT 4 MG TAB.RAPDIS TRANSLINGU ×2 (06:49→12:52)
[2021-02-10 07:20] VITALS: BP 137/83; PULSE 91; RESP 18; TEMP 36.2; O2SAT 97
[2021-02-10 07:26] LABS: Glucose, Whole Blood 117 mg/dL (60-115)
[2021-02-10 08:51] VITALS: BP 137/83; PULSE 91
[2021-02-10] MEDS: Ferrous Sulfate 324 MG TABLET.DR PO (08:51)
[2021-02-10] MEDS: Gabapentin 100 MG CAPSULE PO (08:51)
[2021-02-10] MEDS: Cyanocobalamin (Vitamin B-12) 100 MCG TABLET PO (08:51)
[2021-02-10] MEDS: lisinopriL 5 MG TABLET PO (08:51)
--- NOTE | 2021-02-10 09:26 | MHC.CM.PN ---
CM MET W/PT TO DISCUSS CARE TEAM/RECOVERY SUPPORT CONSULT, PT IS DECLINING NEED TO SEE STAFF FROM EITHER AND REPORTS SHE JUST WANTS TO GO HOME AND DOESN'T NEED ANY OTHER SERVICES, PT WILL D/C HOME SELF-CARE, PT TO ARRANGE TRANSPORT.
[2021-02-10 09:49] VITALS: RESP 18
[2021-02-10] MEDS: HYDROmorphone HCl 1 MG/ML SYRINGE IVPUSH (09:49)
--- NOTE | 2021-02-10 10:04 | PM.DS ---
DS: Providers Provider Date of Service: 02/10/21 Date of admission: 02/09/21 16:00 Primary care physician: Dariusz Garcia PA-C DS: Diagnosis Discharge Diagnosis (1) JONNY (acute kidney injury): Status: Acute (2) Bilateral flank pain: Status: Acute DS: Summary Status at Discharge Cognitive/behavioral status at discharge: 35 year old with CKD3 that has been stable, diabetes on insulin and HTN that is? controlled. She presents to the ED with c/o back pain that is ongoing for several days, UA is normal, no fever, CT of abdomen and pelvis shows? no acute finding.? Her creatinine is 2.84 before it was 1.51, she has been hydrated and is been observed overnight. Hospital course: Patient was admitted overnight hydrated with improvment in renal function, she continue to have angie para spinal burning type of pain not over spin and not all new, she has no fever, no neuroligcal changes, Time Spent with Patient Time attestation: Total time spent providing and/or coordinating discharge services: Discharge coordination time: Greater than 30 minutes Quality: Stroke Does the patient have a stroke diagnosis?: No Physical Exam Vital Signs: Vital Signs: Last Vital Signs Temp 97.1 F 02/10/21 07:20 Pulse 91 02/10/21 08:51 Resp 18 02/10/21 09:49 BP 137/83 02/10/21 08:51 Pulse Ox 97 02/10/21 07:20 Body Mass Index 25.0 General: AO X 3, no acute distress Resp: CTA bilateral CVS: S1,S2,RRR GI: +BS, NT, no distention Skin: No rash Neuro: motor grossly intact Psych: appropriate affect Discharge Plan Discharge Anticipated Discharge Date/Time: 02/10/21 09:57 Patient Disposition: Home, Self-Care Discharge Diagnosis: JONNY Referrals: Dariusz Garcia PA-C [Primary Care Provider] - 1 Week Discharge Medications: Continued miscellaneous medical supply Misc 1 ea miscellaneous DAILY 99 Days Qty: 2 RF: 0 acetaminophen-codeine 300-30 mg tablet 1 tab PO DAILY 15 Days Qty: 15 RF: 2 Hold Instructions: Resume on 04/17/20. gabapentin 100 mg capsule 100 mg PO DAILY RF: 0 ondansetron 4 mg tablet,disintegrating 4 mg PO Q6-8H PRN (Reason: nausea and vomiting) Qty: 14 RF: 0 cyanocobalamin (vitamin B-12) 100 mcg tablet 1 tab PO DAILY RF: 0 ferrous sulfate 325 mg (65 mg iron) tablet,delayed release (DR/EC) 1 tab PO DAILY RF: 0 metoclopramide HCl 10 mg tablet 1 tab PO QID PRN (Reason: Gastrointestinal Spasms Or Cramping) RF: 0 omeprazole 20 mg capsule,delayed release(DR/EC) 20 mg PO DAILY RF: 0 insulin glargine 100 unit/mL (3 mL) insulin pen 60 unit subcut BEDTIME RF: 0 insulin lispro 100 unit/mL insulin pen 22 unit subcut TIDAC RF: 0 lisinopril 5 mg tablet 5 mg PO DAILY RF: 0 naproxen 500 mg tablet 500 mg PO BID 10 Days Qty: 20 RF: 0 Discharge Orders: Discharge Order (Routine); Ordered 02/10/21 Ordered By: Kt Posada Diet: advance to usual diet Activity on Discharge: As tolerated Stand Alone Forms: Patient Portal Discharge page Care Plan Goals: prevent rehospitalization from renal failure Health Concerns: chronic kidney disease, chronic pain Plan of Treatment: Follow up with your primary care doctor for continuous care Assessment: As above Discharge Date/Time: 02/10/21 14:50
[2021-02-10 11:27] VITALS: BP 115/70; PULSE 76; RESP 16; TEMP 36.4; O2SAT 99
[2021-02-10 11:36] LABS: Glucose, Whole Blood 124 mg/dL (60-115)
--- NOTE | 2021-02-10 13:12 | MHC.CM.PN ---
PT DISCHARGING HOME TODAY SELF-CARE, PT TO ARRANGE TRANSPORT.
== END 2021-02-10 14:50 | disposition home or self-care (01) ==
LOC: HO.ED 14:57 → HO.EDOVER 16:17 → HO.S3 18:33
PROVIDERS: Admitting Provider Internal Medicine; Emergency Provider Emergency Medicine; PCP Physician Assistant; Visit Provider Internal Medicine
DX: N17.9 Acute kidney failure, unspecified (principal); R10.9 Unspecified abdominal pain; R11.0 Nausea; M54.9 Dorsalgia, unspecified; E11.22 Type 2 diabetes mellitus with diabetic chronic kidney disease; I12.9 Hypertensive chronic kidney disease with stage 1 through stage 4 chronic kidney disease, or unspecified chronic kidney disease; N18.30 Chronic kidney disease, stage 3 unspecified; Z20.822 Contact with and (suspected) exposure to COVID-19; Z79.4 Long term (current) use of insulin; Z79.899 Other long term (current) drug therapy; Z53.29 Procedure and treatment not carried out because of patient's decision for other reasons
CPT/HCPCS: 36415; 51798; 74176; 80048; 80076; 81003; 81025; 82947; 83605; 83690; 83735; 85025; 87040; 87635; 96361; 96372; 96374; 96375; 96376; 99218; 99285; J1170; J2405; J2765

== ENCOUNTER 2021-03-11 10:44 | Emergency (ER) | payer OTHER, SELFPAY ==
--- NOTE | 2021-03-11 | ECG_ITS ---
Test Reason : ABDOMINAL PAIN Blood Pressure : / mmHG Vent. Rate : 122 BPM Atrial Rate : 122 BPM P-R Int : 124 ms QRS Dur : 068 ms QT Int : 314 ms P-R-T Axes : 050 -35 023 degrees QTc Int : 447 ms Sinus tachycardia Left axis deviation Borderline ECG No significant changes seen Referred By: Generic ED Physician Electronically Signed By:MONA UGALDE MD
[2021-03-11 11:07] VITALS: BP 141/82; PULSE 105; RESP 20; TEMP 36.9; O2SAT 93; BMI 24.3
[2021-03-11 12:48] VITALS: BP 113/62; PULSE 89; RESP 14; TEMP 37.2; O2SAT 99
[2021-03-11 13:03] LABS: COVID-19 Test Negative (Negative); IDNOW Serial# 9DD0AD1C
[2021-03-11] MEDS: Acetaminophen 325 MG TABLET 650 MG PO (13:21)
[2021-03-11 13:38] LABS: MANUAL DIFF FLAG NO
[2021-03-11 13:43] LABS: Basophils Absolute Auto 0.1 X10*3/uL (0.0-0.2); Basophils Percent Auto 0.7 % (0-2); Eosinophils Absolute Auto 0.2 X10*3/uL (0.0-0.4); Eosinophils Percent Auto 2.4 % (0-4); Hemoglobin 8.1 g/dl (12.0-16.0); Imm Gran Abs Auto 0.01 X10*3/uL (0.00-0.03); Imm Gran Pct Auto 0.1 % (0.0-0.4); Lymphocytes Absolute Auto 1.7 X10*3/uL (1.2-4.9); Lymphocytes Percent Auto 22.1 % (20-40); Mean Corpuscular Hemoglobin 23.2 pg (27.0-33.0); Mean Corpuscular Volume 77.4 fL (80-98); Mean Platelet Volume 9.3 fL (9.4-12.3); Monocytes Absolute Auto 0.4 X10*3/uL (0.1-1.2); Monocytes Percent Auto 5.8 % (2-11); Neutrophils Absolute Auto 5.1 X10*3/uL (2.0-8.3); Neutrophils Percent Auto 68.9 % (45-73); Platelet Count 378 X10*3/uL (160-400); Red Blood Count 3.49 X10*6/uL (4.20-5.50); Red Cell Distribution Width 17.1 % (11.0-16.0); White Blood Count 7.5 X10*3/uL (4.8-10.8)
--- NOTE | 2021-03-11 13:52 | ED.GENADULT ---
HPI - General Adult General Chief complaint: General Medical Stated complaint: Vomiting/Body aches/Headache Time Seen by Provider: 03/11/21 11:42 Source: patient Mode of arrival: ambulatory Limitations: no limitations History of Present Illness HPI narrative: Patient comes to emergency room complaining of abdominal pain, back pain, headache. Patient very anxious, states that her sister and several family members tested positive for COVID-19. Patient is not immunized. Related Data Home Medications Medication Instructions Recorded Confirmed gabapentin 100 mg capsule 100 mg PO DAILY 02/15/20 02/16/21 insulin glargine 100 unit/mL (3 60 unit SUBCUT BEDTIME 04/08/20 02/16/21 mL) subcutaneous pen insulin lispro 100 unit/mL 22 unit SUBCUT TIDAC 04/08/20 02/16/21 subcutaneous pen lisinopril 5 mg tablet 5 mg PO DAILY 04/08/20 02/16/21 omeprazole 20 mg capsule,delayed 20 mg PO DAILY 04/08/20 02/16/21 release cyanocobalamin (vitamin B-12) 100 1 tab PO DAILY 02/09/21 02/16/21 mcg tablet ferrous sulfate 325 mg (65 mg 1 tab PO DAILY 02/09/21 02/16/21 iron) tablet,delayed release metoclopramide HCl 10 mg tablet 1 tab PO QID PRN 02/09/21 02/16/21 Previous Rx's Medication Instructions Recorded naproxen 500 mg tablet 500 mg PO BID 10 Days #20 tab 06/04/20 miscellaneous medical supply 1 ea MISCELLANEOUS DAILY 99 Days 09/15/20 #2 ea acetaminophen 300 mg-codeine 30 mg 1 tab PO DAILY 15 Days #15 tab 02/16/21 tablet ondansetron 4 mg disintegrating 4 mg PO BID PRN 30 Days #60 tab 02/16/21 tablet ondansetron HCl 4 mg tablet 4 mg PO Q6H PRN #10 tab 03/11/21 (Zofran) Allergies Allergy/AdvReac Type Severity Reaction Status Date / Time morphine [MORPHINE] Allergy Unknown HIVES Verified 02/16/21 08:40 raspberry [Raspberry] Allergy Unknown HIVES Verified 02/16/21 08:40 nitrofurantoin AdvReac Unknown GI side Verified 02/16/21 08:40 [From Macrobid] effects Review of Systems Review of Systems: Constitutional : No Weight loss, No Fever, No Chills, No Night Sweats, complaining of fatigue and general malaise ENT/Mouth : No Hearing loss, No Ear Pain, No Nasal Congestion, No Sinus Pain, No Hoarseness, No sore throat, No Rhinorrhea, No Swallowing Difficulty Eyes: No Eye Pain, No Swelling, No Redness, No Foreign Body, No Discharge, No Vision Changes Cardiovascular : Complaining of chest pressure when she talks No SOB, No Dyspnea on Exertion, No Orthopnea, No Edema, No Palpitations Respiratory : No Cough, No Sputum, No Wheezing, No Smoke Exposure, No Dyspnea Gastrointestinal : No Nausea, No Vomiting, No Diarrhea, No Constipation, No abdominal Pain, No Hematochezia, No Melena Genitourinary : no irregular bleeding, No Dysuria, No Urinary Frequency, No Hematuria, No Urinary Incontinence, No Urgency, No Flank Pain, No Urinary Flow Changes, No Hesitancy Musculoskeletal : No joint pain, No Myalgias, No Joint Swelling Skin : No Skin Lesions, No rash Neuro : No Weakness, No Numbness, No Paresthesias, No Loss of Consciousness, No Dizziness, No Headache Psych : No Anxiety/Panic, No Depression, No SI/HI/AH/VH, No Social Issues, Heme/Lymph: No Bruising, No Bleeding,No Lymphadenopathy Endocrine : No Polyuria, No Polydipsia, No Temperature Intolerance [facility] Past Medical History Medical History Anxiety Chronic kidney disease Diabetes Hordeolum externum of right eye Hypertension Nausea Surgical History History of right cataract surgery Hx of right BKA Family History Family History Father Hyperlipidemia Mother Stomach cancer Sister Diabetes Mental health disorder Social History Social History Housing: Apartment Alcohol intake: never Patient Tobacco Use Status: Never used Tobacco e-Cigarette/Vaping Use: Never Used Second Hand Smoke Exposure: No Substance Use Type: Marijuana Advance Directives: Yes Advance Directives on File: Yes Advance Directives Date on File: 04/10/20 Patient : No service: No Current occupational status: disabled Physical Exam Vital Signs: Vital Signs: Last Vital Signs Temp 98.9 F 03/11/21 12:48 Pulse 89 03/11/21 12:48 Resp 14 03/11/21 12:48 BP 113/62 03/11/21 12:48 Pulse Ox 99 03/11/21 12:48 Body Mass Index 24.3 Const: Other: Appearance: Alert. Oriented X3. Very anxious, doing are rhythmic movements,moving her head and hips Eyes: Pupils equal, round and reactive to light. ENT: Pharynx normal. Neck: Normal inspection. Neck supple. No lymph nodes noted. No crepitus CVS: Normal heart rate and rhythm. Pulses normal. Normal S1 and S2 Respiratory: No respiratory distress. Breath sounds normal. No Wheezing. No rales Abdomen: Soft and nontender. No rigidity. No distention. Skin: Skin warm and dry. Normal skin color. Normal skin turgor. Extremities: Patient is a BKA, moving all extremities Neuro: Oriented X 3. No motor deficit. No sensory deficit. Moving all extermities. No slurred speech. Course Course Course Narrative: I discussed with the patient that she tested negative for COVID-19, patient states that overall she feels better, still feeling a bit nauseous, requesting Zofran. Medical Decision Making Lab Data Result diagrams: 03/11/21 13:33 03/11/21 13:33 Labs: Lab Results 03/11/21 03/11/21 03/11/21 Range/Units 12:31 13:33 13:33 WBC 7.5 (4.8-10.8) X10*3/uL RBC 3.49 L (4.20-5.50) X10*6/uL Hgb 8.1 L (12.0-16.0) g/dl Hct 27.0 L (37-47) % MCV 77.4 L (80-98) fL MCH 23.2 L (27.0-33.0) pg MCHC 30.0 L (31.0-35.0) g/dl RDW 17.1 H (11.0-16.0) % Plt Count 378 (160-400) X10*3/uL MPV 9.3 L (9.4-12.3) fL Immature Gran % (Auto) 0.1 (0.0-0.4) % Neut % (Auto) 68.9 (45-73) % Lymph % (Auto) 22.1 (20-40) % [place] % (Auto) 5.8 (2-11) % Eos % (Auto) 2.4 (0-4) % Baso % (Auto) 0.7 (0-2) % Lymph # (Auto) 1.7 (1.2-4.9) X10*3/uL [place] # (Auto) 0.4 (0.1-1.2) X10*3/uL Eos # (Auto) 0.2 (0.0-0.4) X10*3/uL Baso # (Auto) 0.1 (0.0-0.2) X10*3/uL Abs Immat Gran (auto) 0.01 (0.00-0.03) X10*3/uL Absolute Neuts (auto) 5.1 (2.0-8.3) X10*3/uL Absolute Nucleated RBC 0.000 (0.0-0.012) X10*3/uL Nucleated RBC % (auto) 0.0 (0.0-0.2) /100WBC Sodium 137 (135-145) mmol/L Potassium 4.9 (3.3-5.1) mmol/L Chloride 107 (96-108) mmol/L Carbon Dioxide 22 (22-29) mmol/L Anion Gap 13 (12-20) BUN 12 D (9-16) mg/dL Creatinine 1.70 H (0.5-1.4) mg/dL Estim Creat Clear Calc 46.1 Estimated GFR 34 Random Glucose 128 H (60-115) mg/dL Calcium 9.5 D (8.4-10.2) mg/dL Total Bilirubin 0.2 (0.0-1.0) mg/dL AST 22 (5-31) U/L ALT 18 (0-31) U/L Alkaline Phosphatase 98 (39-117) U/L Total Protein 8.0 (6.5-8.0) g/dL Albumin 4.4 (3.5-5.0) g/dL COVID-19 (FANNIE) Negative (Negative) COVID-19 Clin Com See Note Discharge Plan Discharge Clinical Impression: Acute viral syndrome Patient Disposition: Home, Self-Care Instructions: Viral Syndrome (ED), Anxiety (ED) Additional Instructions: Please follow-up with your primary care physician tomorrow. If you have any worsening or new symptoms, please return to the emergency room or call 911 Prescriptions: New ondansetron HCl [Zofran] 4 mg tablet 4 mg PO Q6H PRN (Reason: nausea and vomiting) Qty: 10 RF: 0 No Action miscellaneous medical supply Misc 1 ea miscellaneous DAILY 99 Days Qty: 2 RF: 0 gabapentin 100 mg capsule 100 mg PO DAILY RF: 0 cyanocobalamin (vitamin B-12) 100 mcg tablet 1 tab PO DAILY RF: 0 ferrous sulfate 325 mg (65 mg iron) tablet,delayed release (DR/EC) 1 tab PO DAILY RF: 0 metoclopramide HCl 10 mg tablet 1 tab PO QID PRN (Reason: Gastrointestinal Spasms Or Cramping) RF: 0 omeprazole 20 mg capsule,delayed release(DR/EC) 20 mg PO DAILY RF: 0 insulin glargine 100 unit/mL (3 mL) insulin pen 60 unit subcut BEDTIME RF: 0 insulin lispro 100 unit/mL insulin pen 22 unit subcut TIDAC RF: 0 lisinopril 5 mg tablet 5 mg PO DAILY RF: 0 naproxen 500 mg tablet 500 mg PO BID 10 Days Qty: 20 RF: 0 acetaminophen-codeine 300-30 mg tablet 1 tab PO DAILY 15 Days Qty: 15 RF: 2 Hold Instructions: Resume on 04/17/20. ondansetron 4 mg tablet,disintegrating 4 mg PO BID PRN (Reason: nausea and vomiting) 30 Days Qty: 60 RF: 0
[2021-03-11 14:09] LABS: Alanine Aminotransferase 18 U/L (0-31); Albumin Level 4.4 g/dL (3.5-5.0); Alkaline Phosphatase 98 U/L (39-117); Anion Gap 13 (12-20); Aspartate Amino Transferase 22 U/L (5-31); Bilirubin Total 0.2 mg/dL (0.0-1.0); Blood Urea Nitrogen 12 mg/dL (9-16); Calcium 9.5 mg/dL (8.4-10.2); Carbon Dioxide 22 mmol/L (22-29); Chloride 107 mmol/L (96-108); Creatinine Clr Calc Pharmacy 46.1; Estimated Glomerular Filt Rate 34; Glucose Random 128 mg/dL (60-115); Potassium 4.9 mmol/L (3.3-5.1); Sodium 137 mmol/L (135-145)
[2021-03-11 14:22] VITALS: BP 127/69; PULSE 88; RESP 16; TEMP 37.1; O2SAT 96
[2021-03-11] MEDS: traMADoL HCL 50 MG TABLET PO (14:28)
[2021-03-11] MEDS: Ondansetron ODT 4 MG TAB.RAPDIS TRANSLINGU (14:28)
== END 2021-03-11 14:32 | disposition home or self-care (01) ==
PROVIDERS: Emergency Provider Emergency Medicine; PCP Physician Assistant
DX: B34.9 Viral infection, unspecified (principal); R51.9 Headache, unspecified; I10 Essential (primary) hypertension; E10.9 Type 1 diabetes mellitus without complications; Z79.4 Long term (current) use of insulin; Z20.822 Contact with and (suspected) exposure to COVID-19
CPT/HCPCS: 36415; 80053; 85025; 87635; 93005; 99283; 99284

== ENCOUNTER 2021-06-05 08:02 | Emergency (ER) | payer OTHER, SELFPAY ==
[2021-06-05 09:20] VITALS: BP 122/65; PULSE 89; RESP 19; TEMP 36.6; O2SAT 99; BMI 24.3
== END 2021-06-05 12:26 | disposition left against medical advice (07) ==
PROVIDERS: Emergency Provider Emergency Medicine; PCP Physician Assistant
DX: R10.9 Unspecified abdominal pain (principal); R11.2 Nausea with vomiting, unspecified; E11.22 Type 2 diabetes mellitus with diabetic chronic kidney disease; I12.9 Hypertensive chronic kidney disease with stage 1 through stage 4 chronic kidney disease, or unspecified chronic kidney disease; N18.9 Chronic kidney disease, unspecified; F12.90 Cannabis use, unspecified, uncomplicated
CPT/HCPCS: 99281; 99282

== ENCOUNTER 2021-07-21 00:48 | Emergency (ER) | payer OTHER, SELFPAY ==
--- NOTE | ~2021-07-21 | XR_ITS ---
EXAMINATION: XR CHEST CLINICAL INFORMATION: Left anterior chest/rib pain COMPARISON: 07/13/2020 TECHNIQUE: 2 views of the chest were obtained. FINDINGS: The lungs are clear with no focal consolidation. No evidence of pneumothorax, pulmonary edema, or pleural effusions. The cardiomediastinal silhouette is unremarkable. No acute osseous findings. Generator device overlies the upper abdomen. XR/XR chest 2V IMPRESSION: No acute cardiopulmonary findings.
[2021-07-21 00:50] VITALS: BP 132/78; PULSE 102; RESP 22; TEMP 36.9; O2SAT 100; BMI 24.3
--- NOTE | 2021-07-21 00:58 | PC.NURSE ---
Pt reports she has a gastric stimulator implanted, that she can feel moving. future plans to remove stimulator- per patient.
--- NOTE | 2021-07-21 02:40 | ED.ABDPAIN ---
HPI - Abdominal Pain General Chief Complaint: Abdominal Pain Stated Complaint: left sided pain, back pain Time Seen by Provider: 07/21/21 02:39 Source: patient Mode of arrival: ambulatory History of Present Illness HPI narrative: 36-year-old female with history of diabetes presents with left upper quadrant abdominal discomfort that she states is over the gastric stimulator that she has had for ?a long time?. She also states that she has not had any fever, chills, nausea, vomiting, diarrhea and denies any shortness of breath/chest pain/palpitations. She states that she ?slipped fell? and was concerned that something may have slipped. Related Data Home Medications Medication Instructions Recorded Confirmed gabapentin 100 mg capsule 100 mg PO DAILY 02/15/20 07/06/21 lisinopril 5 mg tablet 5 mg PO DAILY 04/08/20 07/06/21 cyanocobalamin (vitamin B-12) 100 1 tab PO DAILY 02/09/21 07/06/21 mcg tablet insulin glargine 100 unit/mL (3 10 unit SUBCUT BEDTIME ml 03/30/21 07/06/21 mL) subcutaneous pen insulin lispro 100 unit/mL 12 unit SUBCUT TIDAC ml 03/30/21 07/06/21 subcutaneous pen Previous Rx's Medication Instructions Recorded naproxen 500 mg tablet 500 mg PO BID 10 Days #20 tab 06/04/20 miscellaneous medical supply 1 ea MISCELLANEOUS DAILY 99 Days 09/15/20 #2 ea ondansetron HCl 4 mg tablet 4 mg PO Q6H PRN #10 tab 03/11/21 (Zofran) aspirin 81 mg tablet,delayed 81 mg PO DAILY #30 tab 03/30/21 release (Adult Aspirin Regimen) dicyclomine 10 mg capsule 10 mg PO TID PRN #90 cap 03/30/21 ferrous fumarate 325 mg (106 mg 325 mg PO DAILY #30 tab 03/30/21 iron) tablet metoclopramide HCl 10 mg tablet 10 mg PO TIDWMEAL #90 tab 03/30/21 omeprazole 20 mg capsule,delayed 40 mg PO DAILY #60 cap 03/30/21 release vitamin B complex (Vitamins B 1 tab PO DAILY #30 tab 03/30/21 Complex) acetaminophen 300 mg-codeine 30 mg 1 tab PO DAILY 15 Days #15 tab 02/10/22 tablet cyclobenzaprine 10 mg tablet 10 mg PO BEDTIME PRN #4 tab 07/21/21 Allergies Allergy/AdvReac Type Severity Reaction Status Date / Time morphine [MORPHINE] Allergy Unknown HIVES Verified 07/06/21 09:55 raspberry [Raspberry] Allergy Unknown HIVES Verified 07/06/21 09:55 nitrofurantoin AdvReac Unknown GI side Verified 07/06/21 09:55 [From Macrobid] effects Review of Systems Review of Systems Pertinent positives and negatives as stated in HPI and 10 point review systems is otherwise negative. [facility] Past Medical History Source: nursing notes reviewed Medical History Anxiety Chronic kidney disease Diabetes Hordeolum externum of right eye Hypertension Nausea Surgical History History of right cataract surgery Hx of right BKA Family History Family History Father Hyperlipidemia Mother Stomach cancer Sister Diabetes Mental health disorder Social History Social History Housing: Apartment Alcohol intake: never Patient Tobacco Use Status: Never used Tobacco e-Cigarette/Vaping Use: Never Used Second Hand Smoke Exposure: No Substance Use Type: Marijuana Advance Directives: Yes Advance Directives on File: Yes Advance Directives Date on File: 04/10/20 service: No Current occupational status: disabled Cognitive needs: No Hearing needs: No Vision needs: Yes (annual eye exam) Physical Exam ED Vital Signs: Vital Signs - 24 hr 07/21/21 00:50 Temperature 98.5 F Pulse Rate 102 H Respiratory Rate 22 H Blood Pressure 132/78 Pulse Oximetry 100 BMI result Body Mass Index 24.3 VITAL SIGNS: Reviewed. GENERAL: Well developed, well nourished, in no acute distress. HEAD: Normocephalic/atraumatic EYES: PERRLA, EOMI LUNGS: Normal breath sounds. No adventitious sounds or accessory muscle use. SpO2<100> CARDIOVASCULAR: Regular rate and rhythm without noted murmurs ABDOMEN: Soft, non-tender, non-distended with bowel sounds. Specifically, the area over the gastric stimulator was evaluated there is no erythema/induration/fluctuation to suggest infection. MUSCULOSKELETAL: No tenderness, deformities, or effusions noted on gross inspection. EXTREMITIES: No cyanosis, clubbing or edema. SKIN: Inspection of the skin reveals no rashes NEUROLOGIC: Alert and oriented x 4. Strength and sensation to light touch were grossly intact x 4. Course Course Course Narrative: 36-year-old female with history and clinical presentation consistent with likely musculoskeletal pain and on review of all investigations there are no acute findings and patient was provided with combination analgesics as well as a lidocaine patch, GI cocktail, as well as a 1 time dose of oxycodone. All results and findings were discussed with her bedside and she was discharged home in stable condition. MDM - Abdominal Pain Lab Data Result diagrams: 07/21/21 02:57 07/21/21 02:57 Labs: Lab Results 07/21/21 07/21/21 Range/Units 02:57 02:57 WBC 6.7 (4.8-10.8) X10*3/uL RBC 2.96 L (4.20-5.50) X10*6/uL Hgb 8.1 L (12.0-16.0) g/dl Hct 26.8 L (37.0-47.0) % MCV 90.5 (80.0-98.0) fL MCH 27.4 (27.0-33.0) pg MCHC 30.2 L (31.0-35.0) g/dl RDW 17.6 H (11.0-16.0) % Plt Count 364 (160-400) X10*3/uL MPV 8.8 L (9.4-12.3) fL Immature Gran % (Auto) 0.3 (0.0-0.4) % Neut % (Auto) 66.1 (45-73) % Lymph % (Auto) 22.8 (20-40) % [place] % (Auto) 5.9 (2-11) % Eos % (Auto) 4.1 H (0-4) % Baso % (Auto) 0.8 (0-2) % Lymph # (Auto) 1.5 (1.2-4.9) X10*3/uL [place] # (Auto) 0.4 (0.1-1.2) X10*3/uL Eos # (Auto) 0.3 (0.0-0.4) X10*3/uL Baso # (Auto) 0.1 (0.0-0.2) X10*3/uL Abs Immat Gran (auto) 0.02 (0.00-0.03) X10*3/uL Absolute Neuts (auto) 4.4 (2.0-8.3) x10*3/uL Absolute Nucleated RBC 0.000 (0.0-0.012) X10*3/uL Nucleated RBC % (auto) 0.0 (0.0-0.2) /100WBC Sodium 136 (135-145) mmol/L Potassium 4.5 (3.3-5.1) mmol/L Chloride 108 (96-108) mmol/L Carbon Dioxide 19 L (22-29) mmol/L Anion Gap 14 (12-20) BUN 11 (9-16) mg/dL Creatinine 1.67 H (0.5-1.4) mg/dL Estim Creat Clear Calc 46.5 Estimated GFR 35 Random Glucose 160 H (60-115) mg/dL Calcium 8.4 D (8.4-10.2) mg/dL Total Bilirubin < 0.2 (0.0-1.0) mg/dL AST 16 (5-31) U/L ALT 13 (0-31) U/L Alkaline Phosphatase 98 (39-117) U/L Total Protein 6.8 (6.5-8.0) g/dL Albumin 3.7 (3.5-5.0) g/dL Discharge Plan Discharge Clinical Impression: Musculoskeletal pain, Muscle spasm Patient Disposition: Home, Self-Care Instructions: Musculoskeletal Pain (ED) Additional Instructions: 1. Resume all home medications as prescribed. 2. Follow-up with your primary care provider regarding your symptoms of for further evaluation and outpatient management. Return to the ER for worsening symptoms. Prescriptions: New cyclobenzaprine 10 mg tablet 10 mg PO BEDTIME PRN (Reason: muscle spasm) Qty: 4 0RF No Action miscellaneous medical supply Misc 1 ea miscellaneous DAILY 99 Days Qty: 2 0RF Rx Instructions: Need for right BK prosthetic liners acetaminophen-codeine 300-30 mg tablet 1 tab PO DAILY 15 Days Qty: 15 0RF Hold Instructions: Resume on 04/17/20. gabapentin 100 mg capsule 100 mg PO DAILY 0RF cyanocobalamin (vitamin B-12) 100 mcg tablet 1 tab PO DAILY 0RF ondansetron HCl [Zofran] 4 mg tablet 4 mg PO Q6H PRN (Reason: nausea and vomiting) Qty: 10 0RF lisinopril 5 mg tablet 5 mg PO DAILY 0RF naproxen 500 mg tablet 500 mg PO BID 10 Days Qty: 20 0RF omeprazole 20 mg capsule,delayed release(DR/EC) 40 mg PO DAILY Qty: 60 0RF aspirin [Adult Aspirin Regimen] 81 mg tablet,delayed release (DR/EC) 81 mg PO DAILY Qty: 30 0RF metoclopramide HCl 10 mg tablet 10 mg PO TIDWMEAL Qty: 90 2RF ferrous fumarate 325 mg (106 mg iron) tablet 325 mg PO DAILY Qty: 30 1RF vitamin B complex [Vitamins B Complex] Tablet 1 tab PO DAILY Qty: 30 0RF insulin glargine 100 unit/mL (3 mL) insulin pen 10 unit subcut BEDTIME 0RF insulin lispro 100 unit/mL insulin pen 12 unit subcut TIDAC 0RF Label Comments: Sliding scale 2-12 units, SQ tid before meals. 2 units for BS 100-150, 4 units for BS 151-200, 6 units for BS 201-250, 8 units for BS 252-300, 10 units for BS 301-350, 12 units for BS 351-400 dicyclomine 10 mg capsule 10 mg PO TID PRN (Reason: abdominal discomfort) Qty: 90 0RF
[2021-07-21] MEDS: Lidocaine HCl Viscous 2 % 15 ML SOLUTION 10 ML MUCOUS MEM (02:54)
[2021-07-21] MEDS: Lidocaine 4 % Patch ADH..PATCH 1 PATCH TRANSDERMA (02:54)
[2021-07-21] MEDS: Ketorolac Tromethamine 15 MG/ML VIAL IM (02:55)
[2021-07-21] MEDS: Acetaminophen 325 MG TABLET 975 MG PO (02:56)
[2021-07-21] MEDS: Magnesium Hydrox/Alum Hydrox 30 ML ORAL.SUSP PO (02:56)
[2021-07-21 03:01] LABS: MANUAL DIFF FLAG NO
[2021-07-21 03:02] LABS: Basophils Absolute Auto 0.1 X10*3/uL (0.0-0.2); Basophils Percent Auto 0.8 % (0-2); Eosinophils Absolute Auto 0.3 X10*3/uL (0.0-0.4); Eosinophils Percent Auto 4.1 % (0-4); Hematocrit 26.8 % (37.0-47.0); Hemoglobin 8.1 g/dl (12.0-16.0); Imm Gran Abs Auto 0.02 X10*3/uL (0.00-0.03); Imm Gran Pct Auto 0.3 % (0.0-0.4); Lymphocytes Absolute Auto 1.5 X10*3/uL (1.2-4.9); Lymphocytes Percent Auto 22.8 % (20-40); Mean Corpuscular HGB Conc 30.2 g/dl (31.0-35.0); Mean Corpuscular Hemoglobin 27.4 pg (27.0-33.0); Mean Corpuscular Volume 90.5 fL (80.0-98.0); Mean Platelet Volume 8.8 fL (9.4-12.3); Monocytes Absolute Auto 0.4 X10*3/uL (0.1-1.2); Monocytes Percent Auto 5.9 % (2-11); Neutrophils Absolute Auto 4.4 x10*3/uL (2.0-8.3); Neutrophils Percent Auto 66.1 % (45-73); Platelet Count 364 X10*3/uL (160-400); Red Blood Count 2.96 X10*6/uL (4.20-5.50); Red Cell Distribution Width 17.6 % (11.0-16.0); White Blood Count 6.7 X10*3/uL (4.8-10.8)
[2021-07-21 03:32] LABS: Alanine Aminotransferase 13 U/L (0-31); Albumin Level 3.7 g/dL (3.5-5.0); Alkaline Phosphatase 98 U/L (39-117); Anion Gap 14 (12-20); Aspartate Amino Transferase 16 U/L (5-31); Bilirubin Total < 0.2 mg/dL (0.0-1.0); Blood Urea Nitrogen 11 mg/dL (9-16); Calcium 8.4 mg/dL (8.4-10.2); Carbon Dioxide 19 mmol/L (22-29); Chloride 108 mmol/L (96-108); Creatinine Clr Calc Pharmacy 46.5; Estimated Glomerular Filt Rate 35; Glucose Random 160 mg/dL (60-115); Potassium 4.5 mmol/L (3.3-5.1); Sodium 136 mmol/L (135-145); Total Protein 6.8 g/dL (6.5-8.0)
[2021-07-21] MEDS: oxyCODONE HCl Immed Release 5 MG TABLET PO (03:53)
[2021-07-21] MEDS: Cyclobenzaprine HCl 10 MG TABLET PO (04:33)
== END 2021-07-21 05:24 | disposition home or self-care (01) ==
PROVIDERS: Emergency Provider Student in an Organized Health Care Education/Training Program
DX: M54.50 Low back pain, unspecified (principal); M62.838 Other muscle spasm; R10.12 Left upper quadrant pain; F12.90 Cannabis use, unspecified, uncomplicated; Z79.899 Other long term (current) drug therapy
CPT/HCPCS: 36415; 71046; 80053; 85025; 96372; 99283; 99284; J1885

== ENCOUNTER 2021-08-11 09:31 | Outpatient (REF) | payer OTHER, SELFPAY ==
--- NOTE | ~2021-08-11 | XR_ITS ---
EXAMINATION: XR CHEST CLINICAL INFORMATION: Chest pain COMPARISON: Previous chest x-rays most recent 07/21/2021 TECHNIQUE: 2 views of the chest were obtained. FINDINGS: The cardiac and mediastinal contours are normal. The lungs are clear. There is no pleural effusion or pneumothorax. No acute bone abnormality is seen. There is a battery seen projecting the left upper abdomen. XR/XR chest 2V IMPRESSION: No evidence for acute disease in chest.
--- NOTE | ~2021-08-11 | FL_ITS ---
EXAMINATION: XR FLUOROSCOPY UPPER GI WITH AIR CLINICAL INFORMATION: Gastroparesis. COMPARISON: None. TECHNIQUE: Routine upper GI air-contrast study was performed in upright and lying positions. FINDINGS: Following oral administration of thick barium and effervescent granules, there is normal progression of bolus from the oral cavity through the pharynx and esophagus and into the stomach without any obstruction or narrowing. On placing patient supine and prone lying, there is significant delay in the transit of barium from the stomach into the proximal small bowel loops. Delayed images were obtained approximately 20 minutes later and revealed contrast extending into the proximal small bowel. No mucosal abnormality is seen. There are 3 electrodes in the epigastric region with hardware overlying the abdomen. FLUOROSCOPY TIME: 2.7 minutes DOSE AREA PRODUCT: 24.6 uGy-m2 (microgray-meter squared) FL/FL upper GI w air IMPRESSION: Significant delay in transit from the stomach into the small bowel, likely related to patient's history of gastroparesis. No obstructive or constrictive lesion seen.
== END 2021-08-11 09:32 | disposition home or self-care (01) ==
LOC: HO.XRAY 09:31
PROVIDERS: Visit Provider Physician Assistant
DX: K31.84 Gastroparesis (principal); R07.89 Other chest pain
CPT/HCPCS: 71046; 74246

== ENCOUNTER 2021-10-04 06:20 | Inpatient (IN) | payer OTHER, SELFPAY ==
--- NOTE | ~2021-10-04 | XR_ITS ---
EXAMINATION: XR ABDOMEN KUB CLINICAL INDICATION: Pain. COMPARISON: CT abdomen pelvis 02/09/2021 TECHNIQUE: AP view of the abdomen. FINDINGS: There is a gastric stimulator device present over the left upper quadrant of abdomen.. The bowel gas pattern is normal with no evidence of ileus or obstruction. No abnormally dilated bowel loop. No unusual soft tissue calcifications are noted. The bones are unremarkable. XR/XR KUB IMPRESSION: No acute change of abdomen.
[2021-10-04 06:28] VITALS: BP 117/77; PULSE 114; RESP 21; TEMP 36.8; O2SAT 100; BMI 24.3
[2021-10-04 06:55] LABS: MANUAL DIFF FLAG NO
[2021-10-04 07:06] LABS: Basophils Absolute Auto 0.1 X10*3/uL (0.0-0.2); Basophils Percent Auto 0.9 % (0-2); Eosinophils Absolute Auto 0.1 X10*3/uL (0.0-0.4); Eosinophils Percent Auto 1.7 % (0-4); Hematocrit 29.9 % (37.0-47.0); Hemoglobin 9.5 g/dl (12.0-16.0); Imm Gran Abs Auto 0.02 X10*3/uL (0.00-0.03); Imm Gran Pct Auto 0.3 % (0.0-0.4); Lymphocytes Absolute Auto 1.4 X10*3/uL (1.2-4.9); Lymphocytes Percent Auto 18.8 % (20-40); Mean Corpuscular HGB Conc 31.8 g/dl (31.0-35.0); Mean Corpuscular Hemoglobin 26.5 pg (27.0-33.0); Mean Corpuscular Volume 83.3 fL (80.0-98.0); Mean Platelet Volume 9.6 fL (9.4-12.3); Monocytes Absolute Auto 0.6 X10*3/uL (0.1-1.2); Monocytes Percent Auto 7.7 % (2-11); Neutrophils Absolute Auto 5.3 x10*3/uL (2.0-8.3); Neutrophils Percent Auto 70.6 % (45-73); Platelet Count 476 X10*3/uL (160-400); Red Blood Count 3.59 X10*6/uL (4.20-5.50); Red Cell Distribution Width 16.3 % (11.0-16.0); White Blood Count 7.5 X10*3/uL (4.8-10.8)
[2021-10-04 07:20] LABS: COVID-19 Test Negative (Negative); IDNOW Serial# 16C4AD1C; Influenza A Negative (Negative); Influenza B2 Negative (Negative)
--- NOTE | 2021-10-04 07:21 | ED_ITS ---
HPI - General Adult General Chief complaint: Nausea/Vomiting/Diarrhea Stated complaint: Diff breathing, n/v Time Seen by Provider: 10/04/21 07:19 Source: patient Mode of arrival: ambulatory Limitations: no limitations History of Present Illness HPI narrative: 36-year-old female with multiple past medical history including diabetes, chronic abdominal pain, pancreatitis, gastroparesis status post stimulator placement to help her appetite, anxiety, right BKA. Patient came in with generalized body ache chest, upper back, upper abdomen, with inability to drink and hydrate herself because of vomiting and chronic gastroparesis. No diarrhea, no recent travel, no fever, no chills. Has not paid warrant for the past 2 months patient at risk of being evicted which is causing stress to the patient that might be reason of patient's symptoms. Related Data Home Medications Medication Instructions Recorded Confirmed gabapentin 100 mg capsule 100 mg PO DAILY 02/15/20 07/06/21 lisinopril 5 mg tablet 5 mg PO DAILY 04/08/20 07/06/21 cyanocobalamin (vitamin B-12) 100 1 tab PO DAILY 02/09/21 07/06/21 mcg tablet Previous Rx's Medication Instructions Recorded naproxen 500 mg tablet 500 mg PO BID 10 Days #20 tab 06/04/20 aspirin 81 mg tablet,delayed 81 mg PO DAILY #30 tab 03/30/21 release (Adult Aspirin Regimen) dicyclomine 10 mg capsule 10 mg PO TID PRN #90 cap 03/30/21 ferrous fumarate 325 mg (106 mg 325 mg PO DAILY #30 tab 03/30/21 iron) tablet metoclopramide HCl 10 mg tablet 10 mg PO TIDWMEAL #90 tab 03/30/21 omeprazole 20 mg capsule,delayed 40 mg PO DAILY #60 cap 03/30/21 release vitamin B complex (Vitamins B 1 tab PO DAILY #30 tab 03/30/21 Complex) cyclobenzaprine 10 mg tablet 10 mg PO BEDTIME PRN #4 tab 07/21/21 insulin glargine 100 unit/mL (3 10 unit (0.1 mL) SUBCUT BEDTIME 30 07/22/21 mL) subcutaneous pen Days #15 ml insulin lispro 100 unit/mL 12 unit (0.12 mL) SUBCUT TIDAC 30 07/22/21 subcutaneous pen Days #15 ml Allergies Allergy/AdvReac Type Severity Reaction Status Date / Time morphine [MORPHINE] Allergy Unknown HIVES Verified 07/06/21 09:55 raspberry [Raspberry] Allergy Unknown HIVES Verified 07/06/21 09:55 nitrofurantoin AdvReac Unknown GI side Verified 07/06/21 09:55 [From Macrobid] effects Review of Systems Review of Systems: All other systems are reviewed and are negative Constitutional: Reports as per HPI and Reports no additional constitutional complaints Eyes: Reports as per HPI and Reports no additional eye complaints Reports system reviewed and no additional complaints, except as documented Cardiovascular: Reports as per HPI and Reports no additional cardiovascular complaints Respiratory: Reports as per HPI and Reports no additional respiratory complaints Gastrointestinal: Reports as per HPI and Reports no additional gastrointestinal complaints Genitourinary: Reports no additional female genitourinary complaints Musculoskeletal: Reports no additional musculoskeletal complaints Skin/Breast: Reports system reviewed and no additional complaints, except as docu Psychiatric: Reports no additional psychiatric complaints Endocrine: Reports no additional endocrine complaints Hematologic/Lymphatic: Reports no additional hematologic/lymphatic complaints Allergic/Immunologic: Reports no additional allergic/immunologic complaints Reports system reviewed and no additional complaints, except as documented and Reports Abnormal speech present [facility] Past Medical History Medical History Anxiety Chronic kidney disease Diabetes Hordeolum externum of right eye Hypertension Nausea Surgical History History of right cataract surgery Hx of right BKA Family History Family History Father Hyperlipidemia Mother Stomach cancer Sister Diabetes Mental health disorder Social History Social History Housing: Apartment Alcohol intake: never Patient Tobacco Use Status: Never used Tobacco e-Cigarette/Vaping Use: Never Used Second Hand Smoke Exposure: No Substance Use Type: Marijuana Advance Directives: Yes Advance Directives on File: Yes Advance Directives Date on File: 04/10/20 service: No Current occupational status: disabled Cognitive needs: No Hearing needs: No Vision needs: Yes (annual eye exam) Physical Exam ED Vital Signs: Vital Signs - 24 hr 10/04/21 06:28 Temperature 98.2 F Pulse Rate 114 H Respiratory Rate 21 H Blood Pressure 117/77 Pulse Oximetry 100 BMI result Body Mass Index 24.3 Vital signs have been reviewed as appeared to be correct. Blood pressure normal. Heart rate normal. Respiration rate normal. Temperature normal. Oxygen saturation normal. Appearance: Alert. Oriented X3. No acute distress. Head: Normal external exam. Normocephalic. Atraumatic. No Meyers signs noted. No raccoon eyes noted Eyes: PERRLA. EOMI. Conjunctiva and sclera normal. Eyelids normal. ENT: TM's Normal. Pharynx normal. Uvula midline. Dry mucous membranes. No trismus noted. No drooling noted. No muffled voice noted. Neck: Normal inspection. Neck supple. FROM. No adenopathy. Thyroid Normal. No meningeal signs. No neck mass noted. CVS: Normal heart rate and rhythm. Heart sound normal. No murmurs noted. Pulses normal throughout. Respiratory: No respiratory distress. Painless inspiration. Breath sounds normal. No wheezes/rales/rhonchi noted. Chest nontender. No accessory muscle usage noted or decreased air movement noted. Abdomen: Soft and nontender. Bowel sounds normal in all 4 quadrants. No distention noted. No organomegaly noted. No visible injury noted. Back: No CVA tenderness. Full range of motion noted. Skin: Skin warm and dry. Normal skin color. Normal skin turgor. No rashes/lesions/lacerations noted. Extremities: No lower extremity edema. Extremities exhibit normal range of motion. Extremities nontender. Neuro: Oriented X 3. Cranial nerve exam: II-XII are grossly intact No motor deficit. No sensory deficit. Reflexes normal. Course Course Course Narrative: Assessment and plan. 36-year-old female diabetic with history of gastroparesis patient waiting for GI evaluation as an outpatient, patient came in for nausea and vomiting, and chronic body ache. Blood workup today is showing acute kidney injury due to dehydration. Patient had multiple presentation in the past similar to today's presentation. Will admit for nausea/ vomiting control / chronic pain control. Medical Decision Making Lab Data Lab results reviewed: Yes I reviewed the patient's lab results. Result diagrams: 10/04/21 06:50 10/04/21 06:50 Labs: Lab Results 10/04/21 10/04/21 10/04/21 Range/Units 06:50 06:50 06:50 WBC 7.5 (4.8-10.8) X10*3/uL RBC 3.59 L D (4.20-5.50) X10*6/uL Hgb 9.5 L (12.0-16.0) g/dl Hct 29.9 L (37.0-47.0) % MCV 83.3 (80.0-98.0) fL MCH 26.5 L (27.0-33.0) pg MCHC 31.8 (31.0-35.0) g/dl RDW 16.3 H (11.0-16.0) % Plt Count 476 H D (160-400) X10*3/uL MPV 9.6 (9.4-12.3) fL Immature Gran % (Auto) 0.3 (0.0-0.4) % Neut % (Auto) 70.6 (45-73) % Lymph % (Auto) 18.8 L (20-40) % [place] % (Auto) 7.7 (2-11) % Eos % (Auto) 1.7 (0-4) % Baso % (Auto) 0.9 (0-2) % Lymph # (Auto) 1.4 (1.2-4.9) X10*3/uL [place] # (Auto) 0.6 (0.1-1.2) X10*3/uL Eos # (Auto) 0.1 (0.0-0.4) X10*3/uL Baso # (Auto) 0.1 (0.0-0.2) X10*3/uL Abs Immat Gran (auto) 0.02 (0.00-0.03) X10*3/uL Absolute Neuts (auto) 5.3 (2.0-8.3) x10*3/uL Absolute Nucleated RBC 0.000 (0.0-0.012) X10*3/uL Nucleated RBC % (auto) 0.0 (0.0-0.2) /100WBC Sodium (135-145) mmol/L Potassium (3.3-5.1) mmol/L Chloride (96-108) mmol/L Carbon Dioxide (22-29) mmol/L Anion Gap (12-20) BUN (9-16) mg/dL Creatinine (0.5-1.4) mg/dL Estim Creat Clear Calc Estimated GFR Random Glucose (60-115) mg/dL Calcium (8.4-10.2) mg/dL Total Bilirubin (0.0-1.0) mg/dL AST (5-31) U/L ALT (0-31) U/L Alkaline Phosphatase (39-117) U/L Total Protein (6.5-8.0) g/dL Albumin (3.5-5.0) g/dL COVID-19 (FANNIE) Negative (Negative) COVID-19 Clin Com See Note Influenza Type A (YOANDY) Negative (Negative) Influenza Type B (YOANDY) Negative (Negative) Influenza A & B Note See Note 10/04/21 Range/Units 06:50 WBC (4.8-10.8) X10*3/uL RBC (4.20-5.50) X10*6/uL Hgb (12.0-16.0) g/dl Hct (37.0-47.0) % MCV (80.0-98.0) fL MCH (27.0-33.0) pg MCHC (31.0-35.0) g/dl RDW (11.0-16.0) % Plt Count (160-400) X10*3/uL MPV (9.4-12.3) fL Immature Gran % (Auto) (0.0-0.4) % Neut % (Auto) (45-73) % Lymph % (Auto) (20-40) % [place] % (Auto) (2-11) % Eos % (Auto) (0-4) % Baso % (Auto) (0-2) % Lymph # (Auto) (1.2-4.9) X10*3/uL [place] # (Auto) (0.1-1.2) X10*3/uL Eos # (Auto) (0.0-0.4) X10*3/uL Baso # (Auto) (0.0-0.2) X10*3/uL Abs Immat Gran (auto) (0.00-0.03) X10*3/uL Absolute Neuts (auto) (2.0-8.3) x10*3/uL Absolute Nucleated RBC (0.0-0.012) X10*3/uL Nucleated RBC % (auto) (0.0-0.2) /100WBC Sodium 133 L (135-145) mmol/L Potassium 4.9 (3.3-5.1) mmol/L Chloride 101 (96-108) mmol/L Carbon Dioxide 18 L (22-29) mmol/L Anion Gap 19 (12-20) BUN 31 H D (9-16) mg/dL Creatinine 2.81 H (0.5-1.4) mg/dL Estim Creat Clear Calc 27.6 Estimated GFR 19 Random Glucose 228 H (60-115) mg/dL Calcium 9.7 D (8.4-10.2) mg/dL Total Bilirubin 0.3 (0.0-1.0) mg/dL AST 31 D (5-31) U/L ALT 18 (0-31) U/L Alkaline Phosphatase 103 (39-117) U/L Total Protein 8.7 H D (6.5-8.0) g/dL Albumin 4.4 (3.5-5.0) g/dL COVID-19 (FANNIE) (Negative) COVID-19 Clin Com Influenza Type A (YOANDY) (Negative) Influenza Type B (YOANDY) (Negative) Influenza A & B Note Discharge Plan Discharge Clinical Impression: Gastroparesis, Dehydration, Intractable vomiting, Acute kidney injury, Chronic pain disorder Patient Disposition: Admitted As Inpatient Prescriptions: No Action insulin glargine 100 unit/mL (3 mL) insulin pen 10 unit subcut BEDTIME 30 Days Qty: 15 3RF insulin lispro 100 unit/mL insulin pen 12 unit subcut TIDAC 30 Days Qty: 15 3RF gabapentin 100 mg capsule 100 mg PO DAILY 0RF cyanocobalamin (vitamin B-12) 100 mcg tablet 1 tab PO DAILY 0RF cyclobenzaprine 10 mg tablet 10 mg PO BEDTIME PRN (Reason: muscle spasm) Qty: 4 0RF lisinopril 5 mg tablet 5 mg PO DAILY 0RF naproxen 500 mg tablet 500 mg PO BID 10 Days Qty: 20 0RF omeprazole 20 mg capsule,delayed release(DR/EC) 40 mg PO DAILY Qty: 60 0RF aspirin [Adult Aspirin Regimen] 81 mg tablet,delayed release (DR/EC) 81 mg PO DAILY Qty: 30 0RF metoclopramide HCl 10 mg tablet 10 mg PO TIDWMEAL Qty: 90 2RF ferrous fumarate 325 mg (106 mg iron) tablet 325 mg PO DAILY Qty: 30 1RF vitamin B complex [Vitamins B Complex] Tablet 1 tab PO DAILY Qty: 30 0RF dicyclomine 10 mg capsule 10 mg PO TID PRN (Reason: abdominal discomfort) Qty: 90 0RF
[2021-10-04 07:33] LABS: Alanine Aminotransferase 18 U/L (0-31); Albumin Level 4.4 g/dL (3.5-5.0); Alkaline Phosphatase 103 U/L (39-117); Anion Gap 19 (12-20); Aspartate Amino Transferase 31 U/L (5-31); Bilirubin Total 0.3 mg/dL (0.0-1.0); Blood Urea Nitrogen 31 mg/dL (9-16); Calcium 9.7 mg/dL (8.4-10.2); Carbon Dioxide 18 mmol/L (22-29); Chloride 101 mmol/L (96-108); Creatinine Clr Calc Pharmacy 27.6; Estimated Glomerular Filt Rate 19; Glucose Random 228 mg/dL (60-115); Potassium 4.9 mmol/L (3.3-5.1); Sodium 133 mmol/L (135-145); Total Protein 8.7 g/dL (6.5-8.0)
[2021-10-04] MEDS: Ondansetron ODT 4 MG TAB.RAPDIS TRANSLINGU (07:43)
[2021-10-04] MEDS: HYDROmorphone HCl 1 MG/ML SYRINGE IM (07:43)
--- NOTE | 2021-10-04 07:45 | PC.NURSE ---
pt pacing in room, reporting abd pain. medicated per emar.
[2021-10-04] MEDS: 0.9 % Sodium Chloride 1,000 ML 999 ML IV ×2 (08:06→10:27)
[2021-10-04] MEDS: HYDROmorphone HCl 1 MG/ML SYRINGE IVPUSH ×2 (08:32→10:26)
[2021-10-04] MEDS: ondansetron HCL 4 MG/2 ML VIAL IVPUSH ×2 (08:32→10:26)
--- NOTE | 2021-10-04 10:22 | MHC.CARE ---
CARE Team met with Pt who reported anxiety related to psychosocial stressors; billie is in senior living, reports risk of losing housing and possible income. Pt stated she has history of therapy and psychiatry and is interested in referrals for new providers. Pt agreeable to [facility] referral. Pt provided with [facility] crisis information.
--- NOTE | 2021-10-04 10:45 | PHA.MEDREC ---
Pharmacy Consult ? Medication Reconciliation Pharmacy has completed the medication reconciliation. Pt was poor historian, but immediately named her insulins when asked. Agreeable to toher medications listed, so I called [facility] in [place] to verify and she has only picked up insulin recently. Lisinopril has not been picked up in over a year, metoclopramide was cancelled in April 2021. Pt stated she takes gabapentin but was unsure of dose, no claim history for it and was not picked up at [facility].
--- NOTE | 2021-10-04 11:33 | PM.IMHP ---
History of Present Illness Date of Service: 10/04/21 Chief Complaint: Nausea and vomiting and abdominal discomfort. 36 year old with CKD3 that has been stable, Insulin dependent diabetes, HTN that is well controlled, severe diabetes gastroparesis s/p stimulator placement, anxiety, S/p right BKA d/t diabetic foot ulcers, with frequent ED visit for nausea and vomitting and chronic pain syndrome. She presents with intractable nausea, vomitting, abdominal pain, upper back pain and inability to keep oral intake. Labs show JONNY on CKD. She has no fever, no diarrhea, symptoms have been worsening over the last couple of days. Despite antiemtics and pain meds, she continue not te feel well at this time. Review of Systems Review of Systems: Gen: no fever Resp: no sob, no cough CV: no chest, no JON, no leg edema GI: + n/ +o abd pain Neuro: No confusion Yes all other systems are reviewed and are negative [facility] Medical History Anxiety Chronic kidney disease Diabetes Hordeolum externum of right eye Hypertension Nausea Family History Father Hyperlipidemia Mother Stomach cancer Sister Diabetes Mental health disorder Surgical History History of right cataract surgery Hx of right BKA Social History Housing: Apartment Alcohol intake: never Patient Tobacco Use Status: Never used Tobacco e-Cigarette/Vaping Use: Never Used Second Hand Smoke Exposure: No Substance Use Type: Marijuana Advance Directives: Yes Advance Directives on File: Yes Advance Directives Date on File: 04/10/20 service: No Current occupational status: disabled Cognitive needs: No Hearing needs: No Vision needs: Yes (annual eye exam) Meds Allergies Allergy/AdvReac Type Severity Reaction Status Date / Time morphine [MORPHINE] Allergy Unknown HIVES Verified 07/06/21 09:55 raspberry [Raspberry] Allergy Unknown HIVES Verified 07/06/21 09:55 nitrofurantoin AdvReac Unknown GI side Verified 07/06/21 09:55 [From Macrobid] effects Active Medications: Current Medications Pharmacy Consult (Consult Rx Perform Med Rec) 1 each MISCELLANE ONCE PRN PRN Reason: Consult order Home Medications Medication Instructions Recorded Confirmed Last Taken Type cyanocobalamin (vitamin B-12) 100 1 tab PO DAILY 02/09/21 10/04/21 Unknown History mcg tablet insulin glargine 100 unit/mL (3 22 unit SUBCUT BEDTIME 10/04/21 10/04/21 Unknown History mL) subcutaneous pen insulin lispro 100 unit/mL 4 - 5 unit SUBCUT TIDAC 10/04/21 10/04/21 Unknown History subcutaneous pen naproxen 500 mg tablet 500 mg PO BID PRN 10/04/21 10/04/21 Unknown History omeprazole 20 mg capsule,delayed 20 mg PO DAILY 10/04/21 10/04/21 Unknown History release Physical Exam Vital Signs and Narrative: Vital Signs: Last Vital Signs Temp 98.2 F 10/04/21 06:28 Pulse 114 H 10/04/21 06:28 Resp 21 H 10/04/21 06:28 BP 117/77 10/04/21 06:28 Pulse Ox 100 10/04/21 06:28 BMI result Body Mass Index 24.3 Const: Other: Constitutional: Alert, in no distress Mental Status: Oriented to person, place and time. Eyes: Pupils are equal, round and reactive to light. Ear, Nose and Throat: Oropharynx clear, mucous membranes dry Respiratory: Clear to auscultation. No wheezing, rales or rhonchi. Cardiovascular: S1 S2 regular. No murmurs, rubs or gallops. Gastrointestinal: Abdomen soft, non-tender, non-distended. Normal bowel sounds.? Neurologic: Cranial nerves II-XII grossly intact. No focal neurological deficits. Moves all extremities spontaneously.? Skin: No rashes or lesions.? MSK: right BKA, stump is clean Musculoskeletal: No cyanosis or clubbing. Psychiatric: Normal mood and affect? Results Labs CBC and Chem 7: 10/04/21 06:50 10/04/21 06:50 Labs: Laboratory Results - last 24 hr 10/04/21 10/04/21 10/04/21 06:50 06:50 06:50 MCV 83.3 MCH 26.5 L MCHC 31.8 RDW 16.3 H Plt Count 476 H D MPV 9.6 Immature Gran % (Auto) 0.3 Neut % (Auto) 70.6 Lymph % (Auto) 18.8 L [place] % (Auto) 7.7 Eos % (Auto) 1.7 Baso % (Auto) 0.9 Lymph # (Auto) 1.4 [place] # (Auto) 0.6 Eos # (Auto) 0.1 Baso # (Auto) 0.1 Abs Immat Gran (auto) 0.02 Absolute Neuts (auto) 5.3 Absolute Nucleated RBC 0.000 Nucleated RBC % (auto) 0.0 Anion Gap Estim Creat Clear Calc Estimated GFR Random Glucose Calcium Total Bilirubin AST ALT Alkaline Phosphatase Total Protein Albumin COVID-19 (FANNIE) Negative COVID-19 Clin Com See Note Influenza Type A (YOANDY) Negative Influenza Type B (YOANDY) Negative Influenza A & B Note See Note 10/04/21 06:50 MCV MCH MCHC RDW Plt Count MPV Immature Gran % (Auto) Neut % (Auto) Lymph % (Auto) [place] % (Auto) Eos % (Auto) Baso % (Auto) Lymph # (Auto) [place] # (Auto) Eos # (Auto) Baso # (Auto) Abs Immat Gran (auto) Absolute Neuts (auto) Absolute Nucleated RBC Nucleated RBC % (auto) Anion Gap 19 Estim Creat Clear Calc 27.6 Estimated GFR 19 Random Glucose 228 H Calcium 9.7 D Total Bilirubin 0.3 AST 31 D ALT 18 Alkaline Phosphatase 103 Total Protein 8.7 H D Albumin 4.4 COVID-19 (FANNIE) COVID-19 Clin Com Influenza Type A (YOANDY) Influenza Type B (YOANDY) Influenza A & B Note Assessment and Plan (1) Gastroparesis: Status: Acute (2) Dehydration: Status: Acute (3) Intractable vomiting: Status: Acute (4) Acute kidney injury: Status: Acute Plan ? 36/F with DM, HTN, CKD, gastroparesis, anxiety here with intractable nausea and vomitting leading to JONNY on CKD, symptoms likely precipitated by gastrparesis flare 1/JONNY on CKD3--hydrate and repeat labs in the morning 2/Nauea/vomitting d/t diabetic gastroparesis -Hydrate, antiemetic, IV dilaudid for pain contro, advance diet slowly 3/Diabetes--Continue insulin 4/HTN--Previously on Lisinopril but i don't see on her med list DVT prohylaxis--Heparin advised to consider covid vaccine Admission to spend at least 2 midnights for management of acute on chronic renal failure requiring IV fluid in the setting of diabetic gastroparesis and unable to keep oral intake. Quality Stroke Does the patient have a stroke diagnosis?: No VTE Prior VTE?: No VTE Risk Level:: Medical - moderate - high VTE Device Contraindication: Treatment Not Indicated VTE Drug Contraindication: N/A - Med Ordered
[2021-10-04 11:59] VITALS: BP 143/74; PULSE 100; TEMP 36.7; O2SAT 99
[2021-10-04] MEDS: HYDROmorphone HCl 0.5 MG/0.5 ML SYRINGE IVPUSH ×3 (13:18→20:31)
[2021-10-04] MEDS: Famotidine/PF 20 MG/2 ML VIAL IVPUSH (13:19)
--- NOTE | 2021-10-04 13:39 | PC.NURSE ---
report given to overflow
[2021-10-04 16:00] VITALS: BP 98/68; PULSE 91; RESP 18; TEMP 36.6; O2SAT 99
[2021-10-04] MEDS: Sodium Chloride 0.45 % 1,000 ML 100 ML IVCONT ×2 (16:29→23:14)
[2021-10-04 17:16] LABS: Glucose, Whole Blood 116 mg/dL (60-115)
[2021-10-04 18:15] VITALS: BMI 24.3
[2021-10-04 19:18] VITALS: BP 117/75; PULSE 77; RESP 16; TEMP 36.4; O2SAT 98
[2021-10-04] MEDS: Metoclopramide HCl 10 MG/2 ML VIAL 5 MG IVPUSH (20:32)
[2021-10-04] MEDS: 0.9 % Sodium Chloride Flush 3 ML SYRINGE IVFLUSH (20:34)
[2021-10-04 21:14] LABS: Glucose, Whole Blood 124 mg/dL (60-115)
[2021-10-04] MEDS: Insulin Glargine,Hum.rec.anlog 100 UNIT/ML 10 ML VIAL 22 UNIT SUBCUT (21:27)
[2021-10-04 23:31] VITALS: BP 142/81; PULSE 73; RESP 16; TEMP 36.8; O2SAT 100
[2021-10-05] MEDS: HYDROmorphone HCl 0.5 MG/0.5 ML SYRINGE IVPUSH ×3 (00:31→09:44)
[2021-10-05 03:14] VITALS: BP 128/75; PULSE 67; RESP 16; TEMP 37.2; O2SAT 100
[2021-10-05 03:21] LABS: Glucose, Whole Blood 92 mg/dL (60-115)
[2021-10-05] MEDS: Omeprazole 20 MG CAPSULE.DR PO (06:01)
[2021-10-05 07:32] VITALS: BP 116/72; PULSE 84; RESP 20; TEMP 36.8; O2SAT 100
[2021-10-05 07:49] LABS: Anion Gap 14 (12-20); Blood Urea Nitrogen 18 mg/dL (9-16); Calcium 9.7 mg/dL (8.4-10.2); Carbon Dioxide 23 mmol/L (22-29); Chloride 104 mmol/L (96-108); Creatinine Clr Calc Pharmacy 45.4; Estimated Glomerular Filt Rate 34; Glucose Random 83 mg/dL (60-115); Potassium 4.1 mmol/L (3.3-5.1); Sodium 137 mmol/L (135-145)
[2021-10-05] MEDS: Cyanocobalamin (Vitamin B-12) 100 MCG TABLET PO (09:45)
[2021-10-05] MEDS: 0.9 % Sodium Chloride Flush 3 ML SYRINGE IVFLUSH (09:45)
[2021-10-05] MEDS: Multivitamin TABLET 1 TAB PO (09:45)
--- NOTE | 2021-10-05 09:45 | PM.DS ---
DS: Providers Provider Date of Service: 10/05/21 Date of admission: 10/04/21 11:49 Primary care physician: Unknown Physician Consults: 10/04/21 08:12 Consult to Care Team Stat Comment: Reason for consultation: billie is in long term putting her at risk for losing housing. lost SSI DS: Diagnosis Discharge Diagnosis (1) Gastroparesis: Status: Acute (2) Dehydration: Status: Acute (3) Intractable vomiting: Status: Acute (4) Acute kidney injury: Status: Acute DS: Summary Hospital Course Hospital Course: Chief Complaint: Nausea and vomiting and abdominal discomfort. 36 year old with CKD3 that has been stable,? Insulin dependent diabetes,? HTN that is well controlled, severe diabetes gastroparesis s/p stimulator placement, anxiety, S/p right BKA d/t diabetic foot ulcers, with frequent ED visit for nausea and vomitting and chronic pain syndrome. She presents with intractable nausea, vomitting, abdominal pain,? upper back pain and inability to keep oral intake. Labs show JONNY on CKD. She has no fever, no diarrhea, symptoms have been worsening over the last couple of days. Despite antiemtics and pain meds, she continue not te feel well at this time. Hospital course: She was admitted overnight and hydrated with IV fluids to correct a renal failure, IV narcotics for abdominal pain associated with gastroparesis. Acute renal insufficiency has resolved, her pain has significantly improved from a the gastroparesis as well, she is tolerating diet and would like to go home to attend to her pet Final diagnosis: Acute kidney injury due to prerenal azotemia Diabetes gastroparesis flare Nausea vomiting and abdominal pain due to be diabetes gastroparesis. Time Spent with Patient Time attestation: Total time spent providing and/or coordinating discharge services: Discharge coordination time: Greater than 30 minutes Quality: Safe Use of Opioids Does Pt have an Active Cancer Diagnosis on the Problem List?: No Quality: Stroke Does the patient have a stroke diagnosis?: No Physical Exam Vital Signs: Vital Signs: Last Vital Signs Temp 98.3 F 10/05/21 07:32 Pulse 84 10/05/21 07:32 Resp 20 10/05/21 07:32 BP 116/72 10/05/21 07:32 Pulse Ox 100 10/05/21 07:32 BMI result Body Mass Index 24.3 DS: Data Data Completed and Pending Labs on day of discharge: Laboratory Results - last 24 hr 10/04/21 10/04/21 10/05/21 17:13 21:11 03:17 Sodium Potassium Chloride Carbon Dioxide Anion Gap BUN Creatinine Estim Creat Clear Calc Estimated GFR POC Glucose 116 H 124 H 92 Random Glucose Calcium 10/05/21 06:47 Sodium 137 Potassium 4.1 Chloride 104 Carbon Dioxide 23 Anion Gap 14 BUN 18 H Creatinine 1.71 H Estim Creat Clear Calc 45.4 Estimated GFR 34 POC Glucose Random Glucose 83 Calcium 9.7 Discharge Plan Discharge Anticipated Discharge Date/Time: 10/05/21 09:43 Patient Disposition: Home, Self-Care Discharge Diagnosis: Diabetes gastroparesis Referrals: Physician,Unknown J [Primary Care Provider] - 1 Week Discharge Medications: Continued omeprazole 20 mg capsule,delayed release(DR/EC) 20 mg PO DAILY 0RF naproxen 500 mg tablet 500 mg PO BID PRN (Reason: Pain) 0RF insulin lispro 100 unit/mL insulin pen 4 - 5 unit subcut TIDAC 0RF insulin glargine 100 unit/mL (3 mL) insulin pen 22 unit subcut BEDTIME 0RF cyanocobalamin (vitamin B-12) 100 mcg tablet 1 tab PO DAILY 0RF ferrous fumarate 325 mg (106 mg iron) tablet 325 mg PO DAILY Qty: 30 1RF vitamin B complex [Vitamins B Complex] Tablet 1 tab PO DAILY Qty: 30 0RF dicyclomine 10 mg capsule 10 mg PO TID PRN (Reason: abdominal discomfort) Qty: 90 0RF Discharge Orders: Discharge Order (Routine); Ordered 10/05/21 Ordered By: Kt Posada Diet: advance to usual diet and diabetic diet Activity on Discharge: As tolerated Stand Alone Forms: Patient Portal Discharge page Care Plan Goals: Full recovery from gastroparesis and prevent rehospitalization. Health Concerns: Diabetes with complication of gastroparesis, chronic pain syndrome Plan of Treatment: Taking medications as usual and follow up with her primary care doctor within a week. Assessment: As above
[2021-10-05] MEDS: Sodium Chloride 0.45 % 1,000 ML 100 ML IVCONT (09:51)
--- NOTE | 2021-10-05 09:54 | MHC.CM.PN ---
pt dcd home no skilled services ordered by
== END 2021-10-05 11:36 | disposition home or self-care (01) | DRG 48 ==
LOC: HO.ED 10:42 → HO.EDOVER 11:57 → HO.IMC 14:53
PROVIDERS: Admitting Provider Internal Medicine; Emergency Provider Emergency Medicine; PCP Physician Assistant; Visit Provider Internal Medicine
DX: E11.43 Type 2 diabetes mellitus with diabetic autonomic (poly)neuropathy (principal); N17.9 Acute kidney failure, unspecified; K31.84 Gastroparesis; Z96.82 Presence of neurostimulator; E11.22 Type 2 diabetes mellitus with diabetic chronic kidney disease; G89.29 Other chronic pain; N18.30 Chronic kidney disease, stage 3 unspecified; F41.9 Anxiety disorder, unspecified; E86.0 Dehydration; I12.9 Hypertensive chronic kidney disease with stage 1 through stage 4 chronic kidney disease, or unspecified chronic kidney disease; Z20.822 Contact with and (suspected) exposure to COVID-19; Z79.4 Long term (current) use of insulin; Z88.5 Allergy status to narcotic agent; Z89.511 Acquired absence of right leg below knee; Z88.1 Allergy status to other antibiotic agents; Z79.899 Other long term (current) drug therapy
CPT/HCPCS: 36415; 74018; 80048; 80053; 82947; 85025; 87502; 87635; 96361; 96372; 96374; 96375; 96376; 99285; J1170; J2405; J2765

== ENCOUNTER 2021-10-10 10:24 | Emergency (ER) | payer OTHER, SELFPAY ==
[2021-10-10 10:34] VITALS: BP 147/86; BP 150/80; PULSE 108; PULSE 64; RESP 20; TEMP 36.6; O2SAT 100; O2SAT 99; BMI 30.9
--- NOTE | 2021-10-10 10:51 | ED.GENADULT ---
HPI - General Adult General Chief complaint: Nausea/Vomiting/Diarrhea Stated complaint: abd pain/crisis Time Seen by Provider: 10/10/21 10:35 Source: patient and EMS Mode of arrival: EMS Limitations: no limitations History of Present Illness HPI narrative: This is a 36-year-old female with history of CKD 3/DM on insulin/hypertension/chronic abdominal and back pain. Patient came in for evaluation of abdominal pain vomiting started for 1 day, patient had multiple ED visits for similar symptoms usually patient's symptoms triggered by stress patient stated that her boyfriend is in [place] [facility] and patient is at risk of losing her housing and in very bad financial situation. Patient recently was hospitalized for abdominal pain and acute on chronic renal insufficiency. Being familiar with the patient and history the only medicine work for this patient as Dilaudid and because patient is very difficult IV access, and consider IM injections. Patient recently was seen in the emergency department 2 days ago for chronic abdominal pain and dehydration, patient end up to be admitted for 2 days for IV hydration. Related Data Home Medications Medication Instructions Recorded Confirmed cyanocobalamin (vitamin B-12) 100 1 tab PO DAILY 02/09/21 10/04/21 mcg tablet insulin glargine 100 unit/mL (3 22 unit SUBCUT BEDTIME 10/04/21 10/04/21 mL) subcutaneous pen insulin lispro 100 unit/mL 4 - 5 unit SUBCUT TIDAC 10/04/21 10/04/21 subcutaneous pen naproxen 500 mg tablet 500 mg PO BID PRN 10/04/21 10/04/21 omeprazole 20 mg capsule,delayed 20 mg PO DAILY 10/04/21 10/04/21 release Previous Rx's Medication Instructions Recorded dicyclomine 10 mg capsule 10 mg PO TID PRN #90 cap 03/30/21 ferrous fumarate 325 mg (106 mg 325 mg PO DAILY #30 tab 03/30/21 iron) tablet vitamin B complex (Vitamins B 1 tab PO DAILY #30 tab 03/30/21 Complex) Allergies Allergy/AdvReac Type Severity Reaction Status Date / Time morphine [MORPHINE] Allergy Unknown HIVES Verified 07/06/21 09:55 raspberry [Raspberry] Allergy Unknown HIVES Verified 07/06/21 09:55 nitrofurantoin AdvReac Unknown GI side Verified 07/06/21 09:55 [From Macrobid] effects Review of Systems Review of Systems: Yes Unobtainable due to mental status (Patient is very anxious and stressed out) FOR[facility]LY [facility] Past Medical History Medical History Anxiety Chronic kidney disease Diabetes Hordeolum externum of right eye Hypertension Nausea Surgical History History of right cataract surgery Hx of right BKA Family History Family History Father Hyperlipidemia Mother Stomach cancer Sister Diabetes Mental health disorder Social History Social History Housing: Apartment Alcohol intake: never Patient Tobacco Use Status: Never used Tobacco e-Cigarette/Vaping Use: Never Used Second Hand Smoke Exposure: No Substance Use Type: Marijuana Advance Directives: Yes Advance Directives on File: Yes Advance Directives Date on File: 02/09/21 service: No Current occupational status: disabled Cognitive needs: No Hearing needs: No Vision needs: Yes (annual eye exam) Physical Exam ED Vital Signs: Vital Signs - 24 hr 10/10/21 10:34 10/10/21 15:08 Temperature 98 F 98.3 F Pulse Rate 108 H 78 Respiratory Rate 20 Blood Pressure 147/86 H 151/81 H Pulse Oximetry 99 99 BMI result Body Mass Index 30.9 Vital signs have been reviewed as appeared to be correct. Blood pressure normal. Heart rate elevated.Respiration rate normal. Temperature normal. Oxygen saturation normal. Appearance: Alert. Oriented x3, very anxious and erratic behavior. Head: Normal external exam. Normocephalic. Atraumatic. No Meyers signs noted. No raccoon eyes noted Eyes: PERRLA. EOMI. Conjunctiva and sclera normal. Eyelids normal. ENT: TM's Normal. Pharynx normal. Uvula midline. Moist mucous membranes. No trismus noted. No drooling noted. No muffled voice noted. Neck: Normal inspection. Neck supple. FROM. No adenopathy. Thyroid Normal. No meningeal signs. No neck mass noted. CVS: Normal heart rate and rhythm. Heart sound normal. No murmurs noted. Pulses normal throughout. Respiratory: No respiratory distress. Painless inspiration. Breath sounds normal. No wheezes/rales/rhonchi noted. Chest nontender. No accessory muscle usage noted or decreased air movement noted. Abdomen: Soft and nontender. Bowel sounds normal in all 4 quadrants. No distention noted. No organomegaly noted. No visible injury noted. Back: No CVA tenderness. Full range of motion noted. Skin: Skin warm and dry. Normal skin color. Normal skin turgor. No rashes/lesions/lacerations noted. Extremities: No lower extremity edema. Extremities exhibit normal range of motion. Extremities nontender. Neuro: Oriented X 3. Cranial nerve exam: II-XII are grossly intact No motor deficit. No sensory deficit. Reflexes normal. Course Course Course Narrative: Assessment and plan. 36-year-old female with multiple past medical history including diabetes, CKD 3, chronic abdominal pain had a recent KUB x-ray which was unremarkable, patient going through multiple stressful event and at risk for being evicted from her apartment and patient lost her SSI income which is likely triggering her anxiety and agitation. We will have [facility] evaluation. Case signed out to Dr. Reina. Discharge Plan Discharge Clinical Impression: Anxiety Prescriptions: No Action omeprazole 20 mg capsule,delayed release(DR/EC) 20 mg PO DAILY 0RF naproxen 500 mg tablet 500 mg PO BID PRN (Reason: Pain) 0RF insulin lispro 100 unit/mL insulin pen 4 - 5 unit subcut TIDAC 0RF insulin glargine 100 unit/mL (3 mL) insulin pen 22 unit subcut BEDTIME 0RF cyanocobalamin (vitamin B-12) 100 mcg tablet 1 tab PO DAILY 0RF ferrous fumarate 325 mg (106 mg iron) tablet 325 mg PO DAILY Qty: 30 1RF vitamin B complex [Vitamins B Complex] Tablet 1 tab PO DAILY Qty: 30 0RF dicyclomine 10 mg capsule 10 mg PO TID PRN (Reason: abdominal discomfort) Qty: 90 0RF
[2021-10-10] MEDS: Ondansetron ODT 4 MG TAB.RAPDIS TRANSLINGU (11:18)
[2021-10-10] MEDS: HYDROmorphone HCl 1 MG/ML SYRINGE IM ×2 (11:18→11:58)
--- NOTE | 2021-10-10 11:20 | PC.NURSE ---
PT MEDICATED FOR NAUSEA AND PAIN. HER BEHAVIOR IS MORE IN CONTROL IMMEDICATELY FOLLOWING HER MED ADMINISTRATION. PO FLUIDS AT BEDSIDE
[2021-10-10] MEDS: LORazepam 1 MG TABLET PO (11:58)
[2021-10-10] MEDS: OLANZapine 10 MG VIAL 5 MG IM (12:46)
[2021-10-10 15:08] VITALS: BP 151/81; PULSE 78; TEMP 36.8; O2SAT 99
--- NOTE | 2021-10-10 18:06 | PC.NURSE ---
DR BENTON AT THE BEDSIDE. REVIEWED PLAN WITH PATIENT. SHE BECAME AGGITATED AND VERBALLY INAPPROPRIATE. SHE CALLED FOR HER RIDE AND LEFT PRIOR TO OBTAINING D/C INSTRUCTIONS.
== END 2021-10-10 18:09 | disposition home or self-care (01) ==
PROVIDERS: Emergency Provider Emergency Medicine Emergency Medical Services; PCP Physician Assistant
DX: R11.2 Nausea with vomiting, unspecified (principal); R10.9 Unspecified abdominal pain; M54.50 Low back pain, unspecified; I12.9 Hypertensive chronic kidney disease with stage 1 through stage 4 chronic kidney disease, or unspecified chronic kidney disease; E11.22 Type 2 diabetes mellitus with diabetic chronic kidney disease; F41.1 Generalized anxiety disorder; F43.0 Acute stress reaction; N18.30 Chronic kidney disease, stage 3 unspecified; Z79.4 Long term (current) use of insulin; Z79.899 Other long term (current) drug therapy
CPT/HCPCS: 96372; 99281; 99285; J1170

== ENCOUNTER 2021-11-08 13:44 | Emergency (ER) | payer OTHER, SELFPAY | END 2021-11-08 14:29 | disposition left against medical advice (07) | PROVIDERS: Emergency Provider Emergency Medicine | DX: R51.9 Headache, unspecified (principal) ==

== ENCOUNTER 2021-11-10 09:40 | Emergency (ER) | payer OTHER, SELFPAY ==
--- NOTE | ~2021-11-10 | CT_ITS ---
EXAMINATION: CT CERVICAL SPINE WITHOUT CONTRAST CLINICAL INFORMATION: Fall. COMPARISON: CT cervical spine 10/31/2017 TECHNIQUE: Axial 3 mm thin and reformatted 2 mm thin sagittal and coronal images of cervical spine were obtained. This CT examination was performed using dose optimization techniques as appropriate, variously including the following: *Automated exposure control *Adjustment of mA and/or kV according to patient size (this includes techniques or standardized protocols for targeted exams where dose is matched to indication/reason for exam; i.e. extremities or head) *Use of iterative reconstruction technique DLP: 554 mGy-cm FINDINGS: There is mild straightening of cervical lordosis. The vertebral heights, alignment and disc heights are normal. There is no visible acute fracture, dislocation or subluxation seen. The craniovertebral junction is normal. The craniovertebral junction and the C1-C2 alignment is normal. The prevertebral and the paravertebral soft tissues are normal. The airway is widely patent. The lung apices are clear. The thyroid lobes are symmetrical and normal. CT/CT cervical spine wo con IMPRESSION: Mild straightening of cervical lordosis. No visible acute fracture, dislocation or subluxation seen. No change since previous study 10/31/2017. Fleischner guidelines were followed.
[2021-11-10 09:47] VITALS: BP 118/67; PULSE 115; RESP 18; TEMP 36.4; O2SAT 100; BMI 24.3
[2021-11-10 10:06] LABS: Glucose, Whole Blood 113 mg/dL (60-115)
[2021-11-10 10:06] LABS: MANUAL DIFF FLAG NO
[2021-11-10 10:07] LABS: Basophils Absolute Auto 0.1 X10*3/uL (0.0-0.2); Basophils Percent Auto 0.8 % (0-2); Eosinophils Absolute Auto 0.1 X10*3/uL (0.0-0.4); Eosinophils Percent Auto 1.2 % (0-4); Hematocrit 33.4 % (37.0-47.0); Hemoglobin 10.2 g/dl (12.0-16.0); Imm Gran Abs Auto 0.03 X10*3/uL (0.00-0.03); Imm Gran Pct Auto 0.3 % (0.0-0.4); Lymphocytes Percent Auto 22.4 % (20-40); Mean Corpuscular HGB Conc 30.5 g/dl (31.0-35.0); Mean Corpuscular Hemoglobin 25.1 pg (27.0-33.0); Mean Corpuscular Volume 82.1 fL (80.0-98.0); Monocytes Absolute Auto 0.8 X10*3/uL (0.1-1.2); Monocytes Percent Auto 9.3 % (2-11); Platelet Count 383 X10*3/uL (160-400); Red Blood Count 4.07 X10*6/uL (4.20-5.50); Red Cell Distribution Width 17.3 % (11.0-16.0); White Blood Count 9.1 X10*3/uL (4.8-10.8)
--- NOTE | 2021-11-10 10:24 | ED.FALL ---
HPI - Fall General Chief Complaint: General Medical Stated Complaint: STOMACH PAIN, FELL FEW DAYS AGO Time Seen by Provider: 11/10/21 09:57 Source: patient Mode of arrival: ambulatory Limitations: no limitations History of Present Illness HPI Narrative: 36 yo female with hx of GERD, chronic pain, anxiety/depression, anemia, DM hx of amputation and CKD, HTN reports mechanical fall after tripping due to her dog on Monday she fell backwards and c/o neck pain did hit back of head but no LOC and no blood thinners her main complaint is neck pain now causing the rest of her back to be sore as it travels down her back. She is also anxious and very depressed no SI wants to talk to someone. MD complaint: fall Onset (ago): day(s) (2) Fall from: standing Fall witnessed: yes, by family Place fall occurred: home Loss of consciousness: none Prolonged down time: no Symptoms prior to fall: none Context: tripped/slipped Location of injury: neck Severity: moderate Quality: spasming and throbbing Associated symptoms (after fall): other (neck pain causing spasms, also reports depression) Related Data Home Medications Medication Instructions Recorded Confirmed cyanocobalamin (vitamin B-12) 100 1 tab PO DAILY 02/09/21 10/04/21 mcg tablet insulin glargine 100 unit/mL (3 22 unit subcut BEDTIME 10/04/21 10/04/21 mL) subcutaneous pen insulin lispro 100 unit/mL 4 - 5 unit subcut TIDAC 10/04/21 10/04/21 subcutaneous pen naproxen 500 mg tablet 500 mg PO BID PRN Pain 10/04/21 10/04/21 omeprazole 20 mg capsule,delayed 20 mg PO DAILY 10/04/21 10/04/21 release Previous Rx's Medication Instructions Recorded dicyclomine 10 mg capsule 10 mg PO TID PRN abdominal 03/30/21 discomfort #90 caps ferrous fumarate 325 mg (106 mg 325 mg PO DAILY #30 tabs 03/30/21 iron) tablet vitamin B complex (Vitamins B 1 tab PO DAILY #30 tabs 03/30/21 Complex) cyclobenzaprine 10 mg tablet 10 mg PO TID PRN muscle spasm #14 11/10/21 tabs lidocaine 5 % topical patch 1 patch topical DAILY #30 ea 11/10/21 Allergies Allergy/AdvReac Type Severity Reaction Status Date / Time morphine [MORPHINE] Allergy Unknown HIVES Verified 07/06/21 09:55 raspberry [Raspberry] Allergy Unknown HIVES Verified 07/06/21 09:55 nitrofurantoin AdvReac Unknown GI side Verified 07/06/21 09:55 [From Macrobid] effects Review of Systems Review of Systems: Constitutional : No Fever, No Chills ENT/Mouth : No Ear Pain, No Hoarseness, No sore throat Eyes: No Eye Pain, No Swelling, No Redness, No Foreign Body Cardiovascular : No Chest Pain, No SOB Respiratory : No Cough, No Dyspnea Gastrointestinal : No Nausea, No Vomiting, No Diarrhea, No abdominal Pain Genitourinary : No Dysuria, No Hematuria Musculoskeletal : no joint pain, No Myalgias, No Joint Swelling, pos neck pain Skin : No Skin lacerations, No rash Neuro : No Weakness, No Numbness, No Loss of Consciousness, No Dizziness, No Headache Psych : pos Anxiety/Panic, pos Depression, no SI Heme/Lymph: no easy bruising, no Lymphadenopathy Endocrine : No Polyuria, No Polydipsia All other systems reviewed and are negative [facility] Past Medical History Attestation statement: The following information was validated with the patient. Medical History (Updated 11/10/21 @ 14:40 by Vandana Castillo DO) Anxiety Chronic kidney disease Chronic pain disorder Diabetes Gastroparesis GERD without esophagitis Hypertension Iron deficiency anemia Nausea Surgical History History of right cataract surgery Hx of right BKA Family History Family History Father Hyperlipidemia Mother Stomach cancer Sister Diabetes Mental health disorder Social History Social History Housing: Apartment Alcohol intake: never Patient Tobacco Use Status: Never used Tobacco e-Cigarette/Vaping Use: Never Used Second Hand Smoke Exposure: No Substance Use Type: Marijuana Advance Directives: Yes Advance Directives on File: Yes Advance Directives Date on File: 02/09/21 service: No Current occupational status: disabled Cognitive needs: No Hearing needs: No Vision needs: Yes (annual eye exam) Physical Exam Vital Signs: Vital Signs: Last Vital Signs Temp 97.2 F 11/10/21 13:48 Pulse 80 11/10/21 13:48 Resp 16 11/10/21 13:48 BP 120/60 11/10/21 13:48 Pulse Ox 98 11/10/21 13:48 O2 Del Method 11/10/21 13:48 BMI result Body Mass Index 24.3 Appearance: Alert. Oriented X3. No acute distress. Eyes: Pupils equal, round and reactive to light. ENT: Pharynx normal. Neck: c/o ttp along cervical spine with bilateral trapezius ttp UE NV intact CVS: Normal heart rate and rhythm. Pulses normal. Respiratory: No respiratory distress. Breath sounds normal. Back: thoracic and lumbar paraspinal ttp no midline ttp Abdomen: Soft and non-tender. Skin: Skin warm and dry. Normal skin color. Normal skin turgor. Extremities: No lower extremity edema. No calf ttp R LE amputation noted Neuro: Oriented X 3. No motor deficit. No sensory deficit. Course Course Course Narrative: no report left, pending Cr result and CT scan result patient now states she wants to leave and refuses to stay to wait for her labs aware we do no have a repeat Cr seen by CARE team - plans to keep working with 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 RN tried to reach patient - patient's own RN Andreina and patient's number and her emergency contact are no longer in service we are unable to reach the patient at this time 305pm I was able to get a hold of the patient and she states after her appointment she will come back to the ED for further workup and possible admission given worsening kidney function number is [phone] we were able to get the number off of her cousin who was in the department and they visited each other while patients. MDM - Fall MDM Narrative Medical decision making narrative: 36 yo female with hx of GERD, chronic pain, anxiety/depression, anemia, DM hx of amputation and CKD, HTN comes in with mechanical fall on Monday c/o cervical spine pain at this time CT cspine ordered she has no neuro deficits, doubt ICH. She had labs drawn in triage mild JONNY on CKD will hydrate - baseline around 1.8 to 2 she is 2.44 denies or GI symptoms. Also requesting to speak to CARE team about her depression no SI. Lab Data Result diagrams: 11/10/21 10:02 11/10/21 14:01 Labs: Lab Results 11/10/21 11/10/21 11/10/21 Range/Units 10:01 10:02 10:02 WBC 9.1 (4.8-10.8) X10*3/uL RBC 4.07 L (4.20-5.50) X10*6/uL Hgb 10.2 L (12.0-16.0) g/dl Hct 33.4 L (37.0-47.0) % MCV 82.1 (80.0-98.0) fL MCH 25.1 L (27.0-33.0) pg MCHC 30.5 L (31.0-35.0) g/dl RDW 17.3 H (11.0-16.0) % Plt Count 383 (160-400) X10*3/uL MPV 10.0 (9.4-12.3) fL Immature Gran % (Auto) 0.3 (0.0-0.4) % Neut % (Auto) 66.0 (45-73) % Lymph % (Auto) 22.4 (20-40) % Talbot % (Auto) 9.3 (2-11) % Eos % (Auto) 1.2 (0-4) % Baso % (Auto) 0.8 (0-2) % Lymph # (Auto) 2.0 (1.2-4.9) X10*3/uL Talbot # (Auto) 0.8 (0.1-1.2) X10*3/uL Eos # (Auto) 0.1 (0.0-0.4) X10*3/uL Baso # (Auto) 0.1 (0.0-0.2) X10*3/uL Abs Immat Gran (auto) 0.03 (0.00-0.03) X10*3/uL Absolute Neuts (auto) 6.0 (2.0-8.3) x10*3/uL Absolute Nucleated RBC 0.000 (0.0-0.012) X10*3/uL Nucleated RBC % (auto) 0.0 (0.0-0.2) /100WBC Sodium 135 (135-145) mmol/L Potassium 5.0 D (3.3-5.1) mmol/L Chloride 99 (96-108) mmol/L Carbon Dioxide 22 (22-29) mmol/L Anion Gap 19 (12-20) BUN 21 H (9-16) mg/dL Creatinine 2.44 H (0.5-1.4) mg/dL Estim Creat Clear Calc 31.8 Estimated GFR 22 POC Glucose 113 (60-115) mg/dL Random Glucose 128 H (60-115) mg/dL Calcium 9.4 (8.4-10.2) mg/dL Total Bilirubin 0.4 (0.0-1.0) mg/dL AST 38 H (5-31) U/L ALT 22 (0-31) U/L Alkaline Phosphatase 119 H (39-117) U/L Total Protein 8.6 H (6.5-8.0) g/dL Albumin 4.5 (3.5-5.0) g/dL 11/10/21 Range/Units 14:01 WBC (4.8-10.8) X10*3/uL RBC (4.20-5.50) X10*6/uL Hgb (12.0-16.0) g/dl Hct (37.0-47.0) % MCV (80.0-98.0) fL MCH (27.0-33.0) pg MCHC (31.0-35.0) g/dl RDW (11.0-16.0) % Plt Count (160-400) X10*3/uL MPV (9.4-12.3) fL Immature Gran % (Auto) (0.0-0.4) % Neut % (Auto) (45-73) % Lymph % (Auto) (20-40) % Talbot % (Auto) (2-11) % Eos % (Auto) (0-4) % Baso % (Auto) (0-2) % Lymph # (Auto) (1.2-4.9) X10*3/uL Talbot # (Auto) (0.1-1.2) X10*3/uL Eos # (Auto) (0.0-0.4) X10*3/uL Baso # (Auto) (0.0-0.2) X10*3/uL Abs Immat Gran (auto) (0.00-0.03) X10*3/uL Absolute Neuts (auto) (2.0-8.3) x10*3/uL Absolute Nucleated RBC (0.0-0.012) X10*3/uL Nucleated RBC % (auto) (0.0-0.2) /100WBC Sodium (135-145) mmol/L Potassium (3.3-5.1) mmol/L Chloride (96-108) mmol/L Carbon Dioxide (22-29) mmol/L Anion Gap (12-20) BUN (9-16) mg/dL Creatinine 2.92 H (0.5-1.4) mg/dL Estim Creat Clear Calc 26.6 Estimated GFR 18 POC Glucose (60-115) mg/dL Random Glucose (60-115) mg/dL Calcium (8.4-10.2) mg/dL Total Bilirubin (0.0-1.0) mg/dL AST (5-31) U/L ALT (0-31) U/L Alkaline Phosphatase (39-117) U/L Total Protein (6.5-8.0) g/dL Albumin (3.5-5.0) g/dL Discharge Plan Discharge Clinical Impression: Neck pain, Acute dehydration, Acute kidney injury superimposed on chronic kidney disease Patient Disposition: Home, Self-Care Instructions: Dehydration (ED), Acute Neck Pain (ED) Additional Instructions: return to ED for any worsening symptoms or concerns you left prior to your repeat kidney test result if anything abnormal we will call you IMPRESSION: Mild straightening of cervical lordosis. No visible acute fracture, dislocation or subluxation seen. No change since previous study 10/31/2017. ? Fleischner guidelines were followed. Prescriptions: New cyclobenzaprine 10 mg tablet 10 mg PO TID PRN (Reason: muscle spasm) Qty: 14 0RF lidocaine 5 % adhesive patch,medicated 1 patch topical DAILY Qty: 30 0RF Rx Instructions: leave on most painful area for up to 12 hrs No Action omeprazole 20 mg capsule,delayed release(DR/EC) 20 mg PO DAILY naproxen 500 mg tablet 500 mg PO BID PRN (Reason: Pain) insulin lispro 100 unit/mL insulin pen 4 - 5 unit subcut TIDAC insulin glargine 100 unit/mL (3 mL) insulin pen 22 unit subcut BEDTIME cyanocobalamin (vitamin B-12) 100 mcg tablet 1 tab PO DAILY ferrous fumarate 325 mg (106 mg iron) tablet 325 mg PO DAILY Qty: 30 1RF vitamin B complex [Vitamins B Complex] Tablet 1 tab PO DAILY Qty: 30 0RF dicyclomine 10 mg capsule 10 mg PO TID PRN (Reason: abdominal discomfort) Qty: 90 0RF Interventions: ED Discharge Assessment Last Done: 11/10/21 14:33 Discharge Date/Time: 11/10/21 14:33
[2021-11-10 10:28] LABS: Alanine Aminotransferase 22 U/L (0-31); Albumin Level 4.5 g/dL (3.5-5.0); Alkaline Phosphatase 119 U/L (39-117); Anion Gap 19 (12-20); Aspartate Amino Transferase 38 U/L (5-31); Bilirubin Total 0.4 mg/dL (0.0-1.0); Blood Urea Nitrogen 21 mg/dL (9-16); Calcium 9.4 mg/dL (8.4-10.2); Carbon Dioxide 22 mmol/L (22-29); Chloride 99 mmol/L (96-108); Creatinine Clr Calc Pharmacy 31.8; Estimated Glomerular Filt Rate 22; Glucose Random 128 mg/dL (60-115); Sodium 135 mmol/L (135-145); Total Protein 8.6 g/dL (6.5-8.0)
[2021-11-10] MEDS: Acetaminophen 325 MG TABLET 650 MG PO (10:34)
[2021-11-10] MEDS: LORazepam 1 MG TABLET PO (10:34)
[2021-11-10] MEDS: Ondansetron ODT 4 MG TAB.RAPDIS TRANSLINGU (10:34)
[2021-11-10] MEDS: 0.9 % Sodium Chloride 1,000 ML 999 ML IV (11:10)
[2021-11-10] MEDS: oxyCODONE HCl Immed Release 5 MG TABLET 10 MG PO (11:28)
[2021-11-10 13:48] VITALS: BP 120/60; PULSE 80; RESP 16; TEMP 36.2; O2SAT 98
[2021-11-10 14:32] LABS: Creatinine Clr Calc Pharmacy 26.6; Estimated Glomerular Filt Rate 18
== END 2021-11-10 14:33 | disposition home or self-care (01) ==
PROVIDERS: Emergency Provider Emergency Medicine; PCP Physician Assistant
DX: M54.2 Cervicalgia (principal); E86.0 Dehydration; E11.22 Type 2 diabetes mellitus with diabetic chronic kidney disease; I12.9 Hypertensive chronic kidney disease with stage 1 through stage 4 chronic kidney disease, or unspecified chronic kidney disease; N18.9 Chronic kidney disease, unspecified; N17.9 Acute kidney failure, unspecified; F41.1 Generalized anxiety disorder; F32.A Depression, unspecified; Z79.4 Long term (current) use of insulin
CPT/HCPCS: 36415; 72125; 80053; 82565; 82947; 85025; 96360; 99284

== ENCOUNTER 2021-11-13 09:59 | Emergency (ER) | payer OTHER, SELFPAY ==
--- NOTE | ~2021-11-13 | CT_ITS ---
EXAMINATION: CT ABDOMEN, PELVIS, AND LUMBAR SPINE WITHOUT CONTRAST CLINICAL INFORMATION: Abdominal pain. Nausea. Fall. Vertebral point tenderness COMPARISON: [facility] 10/04/2021. CT abdomen pelvis 02/09/2021. TECHNIQUE: Multidetector volumetric imaging was performed from the lung bases through the pubic symphysis. Subsequently, small [id number] targeted axial images through the lumbar spine were obtained. Sagittal and coronal reformatted images were obtained on the technologist workstation. This CT examination was performed using dose optimization techniques as appropriate, variously including the following: *Automated exposure control *Adjustment of mA and/or kV according to patient size (this includes techniques or standardized protocols for targeted exams where dose is matched to indication/reason for exam; i.e. extremities or head) *Use of iterative reconstruction technique DLP 481+301 FINDINGS: The lack of intravenous contrast limits evaluation of the solid visceral organs including the liver, spleen, pancreas, and kidneys. LUNG BASES: The visualized lung bases are unremarkable. LIVER, GALLBLADDER, AND BILIARY TREE: Limited non-contrast evaluation is normal. No gross focal hepatic lesion. Normal liver size and contour. No gross biliary ductal dilation. Gallbladder is not well seen, likely collapsed, possibly surgically absent. PANCREAS: Limited non-contrast evaluation is normal. No lynda-pancreatic fluid. SPLEEN: Limited non-contrast evaluation is normal. ADRENAL GLANDS: Normal; no adrenal mass. KIDNEYS AND URETERS: There is a lobular appearance to the right kidney suggesting areas of scarring. Bilateral renal hilar vascular calcifications are present. No calculi or hydronephrosis. GASTROINTESTINAL TRACT: Small hiatal hernia. Stomach is distended with ingested material. There is an anterior abdominal wall gastric stimulator. Small bowel nondilated. Normal appendix. Tortuous colon with gas and stool. No colonic wall thickening. Diverticulosis. No evidence of colitis or diverticulitis. ABDOMINAL WALL: Gastric stimulator. LYMPH NODES: No pathologically enlarged lymph nodes in the abdomen or pelvis. VASCULAR: There are vascular calcifications, unusual for the patient's age presumably related to medical renal disease. BLADDER: Unremarkable. PELVIC VISCERA: Normal noncontrast appearance of the uterus and ovaries. LUMBAR SPINE AND OSSEOUS STRUCTURES: No rib fractures. 5 nonrib-bearing lumbar type vertebral bodies are seen. Vertebral body and disc heights are maintained. No fractures are seen. Mild lower lumbar facet arthropathy. Sacroiliac joints are patent. No hip or pelvic fracture seen. CT/CT lumbar spine wo con IMPRESSION: No acute CT findings by noncontrast CT. No evidence of bowel obstruction. No evidence of obstructive uropathy. No acute osseous abnormality of the lumbar spine.
--- NOTE | ~2021-11-13 | CT_ITS ---
EXAMINATION: CT ABDOMEN, PELVIS, AND LUMBAR SPINE WITHOUT CONTRAST CLINICAL INFORMATION: Abdominal pain. Nausea. Fall. Vertebral point tenderness COMPARISON: [facility] 10/04/2021. CT abdomen pelvis 02/09/2021. TECHNIQUE: Multidetector volumetric imaging was performed from the lung bases through the pubic symphysis. Subsequently, small uufit-[id number]-[id number] targeted axial images through the lumbar spine were obtained. Sagittal and coronal reformatted images were obtained on the technologist workstation. This CT examination was performed using dose optimization techniques as appropriate, variously including the following: *Automated exposure control *Adjustment of mA and/or kV according to patient size (this includes techniques or standardized protocols for targeted exams where dose is matched to indication/reason for exam; i.e. extremities or head) *Use of iterative reconstruction technique DLP 481+301 FINDINGS: The lack of intravenous contrast limits evaluation of the solid visceral organs including the liver, spleen, pancreas, and kidneys. LUNG BASES: The visualized lung bases are unremarkable. LIVER, GALLBLADDER, AND BILIARY TREE: Limited non-contrast evaluation is normal. No gross focal hepatic lesion. Normal liver size and contour. No gross biliary ductal dilation. Gallbladder is not well seen, likely collapsed, possibly surgically absent. PANCREAS: Limited non-contrast evaluation is normal. No lynda-pancreatic fluid. SPLEEN: Limited non-contrast evaluation is normal. ADRENAL GLANDS: Normal; no adrenal mass. KIDNEYS AND URETERS: There is a lobular appearance to the right kidney suggesting areas of scarring. Bilateral renal hilar vascular calcifications are present. No calculi or hydronephrosis. GASTROINTESTINAL TRACT: Small hiatal hernia. Stomach is distended with ingested material. There is an anterior abdominal wall gastric stimulator. Small bowel nondilated. Normal appendix. Tortuous colon with gas and stool. No colonic wall thickening. Diverticulosis. No evidence of colitis or diverticulitis. ABDOMINAL WALL: Gastric stimulator. LYMPH NODES: No pathologically enlarged lymph nodes in the abdomen or pelvis. VASCULAR: There are vascular calcifications, unusual for the patient's age presumably related to medical renal disease. BLADDER: Unremarkable. PELVIC VISCERA: Normal noncontrast appearance of the uterus and ovaries. LUMBAR SPINE AND OSSEOUS STRUCTURES: No rib fractures. 5 nonrib-bearing lumbar type vertebral bodies are seen. Vertebral body and disc heights are maintained. No fractures are seen. Mild lower lumbar facet arthropathy. Sacroiliac joints are patent. No hip or pelvic fracture seen. CT/CT abdomen pelvis wo con IMPRESSION: No acute CT findings by noncontrast CT. No evidence of bowel obstruction. No evidence of obstructive uropathy. No acute osseous abnormality of the lumbar spine.
[2021-11-13 10:02] VITALS: BP 177/103; PULSE 111; RESP 17; TEMP 36.6; O2SAT 98; BMI 24.3
--- NOTE | 2021-11-13 11:31 | ED.GENADULT ---
HPI - General Adult General Chief complaint: General Medical Stated complaint: kidney pain Time Seen by Provider: 11/13/21 11:28 Source: patient Mode of arrival: EMS Limitations: physical limitation History of Present Illness HPI narrative: 36 yo female with hx of GERD, chronic pain, anxiety/depression, anemia, DM hx of amputation and CKD, HTN comes in with mechanical fall on Monday. She has a prosthesis which got tangled up with her dog, and she slipped on the floor, and fell Patient was seen in the emergency room on 11/10/2021, 4 days ago, was found to have cervical spine sprain, and worsening kidney function. Patient's creatinine at baseline is 1.8-2, her creatinine here was 2.92. Patient left prior to repeat creatinine. Patient had acute chronic injury on chronic kidney disease. Today patient is returning for back pain, nausea and vomiting. Patient states she has had back pain all over since her fall on Monday, she is depressed but not suicidal, states she can not take the pain anymore. States she has been nauseous and vomiting, and cannot eat due to the pain. Said she did not make any urine today, but she did urinate yesterday, and states she it is hard for her to urinate. Pain is on her bilateral back, and radiates into her abdomen. States she did take all her medications today. Related Data Home Medications Medication Instructions Recorded Confirmed cyanocobalamin (vitamin B-12) 100 1 tab PO DAILY 02/09/21 10/04/21 mcg tablet insulin glargine 100 unit/mL (3 22 unit subcut BEDTIME 10/04/21 10/04/21 mL) subcutaneous pen insulin lispro 100 unit/mL 4 - 5 unit subcut TIDAC 10/04/21 10/04/21 subcutaneous pen naproxen 500 mg tablet 500 mg PO BID PRN Pain 10/04/21 10/04/21 omeprazole 20 mg capsule,delayed 20 mg PO DAILY 10/04/21 10/04/21 release Previous Rx's Medication Instructions Recorded dicyclomine 10 mg capsule 10 mg PO TID PRN abdominal 03/30/21 discomfort #90 caps ferrous fumarate 325 mg (106 mg 325 mg PO DAILY #30 tabs 03/30/21 iron) tablet vitamin B complex (Vitamins B 1 tab PO DAILY #30 tabs 03/30/21 Complex) cyclobenzaprine 10 mg tablet 10 mg PO TID PRN muscle spasm #14 11/10/21 tabs lidocaine 5 % topical patch 1 patch topical DAILY #30 ea 11/10/21 Allergies Allergy/AdvReac Type Severity Reaction Status Date / Time morphine [MORPHINE] Allergy Unknown HIVES Verified 07/06/21 09:55 raspberry [Raspberry] Allergy Unknown HIVES Verified 07/06/21 09:55 nitrofurantoin AdvReac Unknown GI side Verified 07/06/21 09:55 [From Macrobid] effects Review of Systems Constitutional: Constitutional: Denies body ache(s), Denies chills, Denies fatigue, Denies fever(s), Denies malaise and Reports weakness Eyes: Eyes: Denies diplopia Cardiovascular: Cardiovascular: Denies chest pain, Denies syncope, Denies leg edema, Denies lightheadedness, Denies Loss of Consciousness, Denies palpitations and Denies dyspnea Respiratory: Respiratory: Denies chest congestion, Denies cough and Denies dyspnea Gastrointestinal: Gastrointestinal: Reports abdominal pain, Denies hematochezia, Denies constipation, Denies diarrhea, Reports nausea and Reports vomiting Genitourinary: Genitourinary: Reports flank pain and Reports urinary hesitancy Musculoskeletal: Musculoskeletal: Reports back pain Integumentary/Breasts: Skin/Breast: Denies rash Neurologic: Denies confusion, Denies syncope and Reports weakness Psychiatric: Psychiatric: Denies anxiety, Denies confusion and Denies depression Endocrine: Endocrine: Denies fatigue and Denies palpitations PMFSH Past Medical History Medical History Anxiety Chronic kidney disease Chronic pain disorder Diabetes Gastroparesis GERD without esophagitis Hordeolum externum of right eye Hypertension Iron deficiency anemia Nausea Surgical History History of right cataract surgery Hx of right BKA Family History Family History Father Hyperlipidemia Mother Stomach cancer Sister Diabetes Mental health disorder Social History Social History Housing: Apartment Alcohol intake: never Patient Tobacco Use Status: Never used Tobacco e-Cigarette/Vaping Use: Never Used Second Hand Smoke Exposure: No Substance Use Type: Marijuana Advance Directives: Yes Advance Directives on File: Yes Advance Directives Date on File: 02/09/21 service: No Current occupational status: disabled Cognitive needs: No Hearing needs: No Vision needs: Yes (annual eye exam) Physical Exam ED Vital Signs: Vital Signs - 24 hr 11/13/21 10:02 11/13/21 13:19 Temperature 98 F 98.8 F Pulse Rate 111 H 84 Respiratory Rate 17 16 Blood Pressure 177/103 H 121/72 Pulse Oximetry 98 100 Oxygen Delivery Method Room Air BMI result Body Mass Index 24.3 Const General: alert, awake and acute distress (Due to pain); No confusion Nutritional Appearance: overweight Orientation/consciousness: patient oriented x3 and No confusion Limitations: physical limitations ([id number] amputation with prosthesis) HENMT Head: Yes normal to inspection, Yes normocephalic and Yes atraumatic Ears: hearing grossly normal bilaterally, external ears normal, TM's normal bilaterally and EAC's normal General nose exam: Normal external nose present Face and sinus: Yes normal facial exam and Yes sinuses nontender Mouth: Normal oral and palatal mucosa present Throat: Yes posterior oropharynx normal Eyes Conjunctivae: conjunctivae normal Pupils: Equal, round and reactive pupils present EOM: EOMs intact bilaterally Neck Neck: Yes full ROM, Yes no lymphadenopathy and Yes supple Resp Effort & Inspection: normal respiratory effort and able to speak in complete sentences Auscultation: clear to auscultation bilaterally, no crackles, no rales, no rhonchi and no wheezes Cardio Rate: regular rate Rhythm: regular rhythm Heart sounds: S1 normal heart sound present and S2 normal heart sound present GI Inspection: Yes normal to inspection Palpation (GI): Soft to palpation, Tenderness to palpation present (GI) in the epigastrum, in the LLQ, in the RLQ, in the LUQ and in the RUQ, Guarding due to palpation present (GI) in the LUQ and in the RUQ and not rigid Percussion: Yes normal to percussion Auscultation: normal bowel sounds General: Yes CVA tenderness bilateral Back/Spine/Pelvis Back: CVA tenderness Cervical Spine: cervical ROM normal, No Cervical spine tenderness and No step off deformity Thoracic/Lumbar Spine: paraspinal muscle tenderness bilaterally and lumbar spinal tenderness at L1, at L2 and at L3 Skin General skin exam: no rashes or lesions noted Neuro General: patient oriented x3 and No confusion Cranial nerves: Yes Equal, round and reactive pupils present Extrem General: Yes normal to inspection and Yes full ROM Psych Appearance: grossly normal Affect: normal affect Attitude: cooperative Thought process: Normal thought process present Course Course Course Narrative: 36 yo female with hx of acute kidney injury, chronic kidney disease, dehydration, GERD, chronic pain, anxiety/depression, anemia, DM hx of amputation HTN comes in with worsening back pain and abdominal pain for the last 4 days. Patient had a fall on Monday, was seen that day, was found to have worsening creatinine, patient left prior to completing workup. States pain has become worse today, she has pain all over her back and her abdomen and has been vomiting from the pain. On exam, patient has point tenderness in her lumbar spine, bilateral CVA tenderness, tender all over her abdomen and guarding in her upper left and upper right abdomen. Will get imaging, CT abdomen pelvis, rule out stone or acute abdominal pathology, will get CT lumbar spine for rule out fracture, will give Zofran and oxycodone by mouth, will get labs and urine. Patient denies SI, although she is very anxious about her service dog whom she has at home Reevaluation(s) Reevaluation #1: Patient had a blood glucose of 54, nursing gave her sandwich. Patient's creatinine has improved is 1.79, improved from 2.92 on November 10, 4 days ago. However, patient's H&H is low, 7.6 and 24.8. Four days ago, on November 10, her H&H was 10.2 and 33.4. Got fecal occult blood sample, patient denies any dark, tarry, or bloody stool, denies vomiting blood Reevaluation #2: Guaiac is negative. Patient is endorsing more pain. Gave Ativan and oxycodone Awaiting CT results Reevaluation #3: CT/CT abdomen pelvis wo con IMPRESSION: No acute CT findings by noncontrast CT. No evidence of bowel obstruction. No evidence of obstructive uropathy. No acute osseous abnormality of the lumbar spine. ? Discussed patient's low H&H with Dr Martínez, who thought that last visit when patient was dehydrated, that her H&H could be abnormally high as she may have been hemoconcentrated. Patient does not endorse any lightheadedness, chest pain, shortness of breath, dizziness, syncope PAtient has a negative work up here, and her pain is more controlled Will read Delfin point of care blood glucose now that she has eaten Blood glucose is 163, patient counseled to follow-up with her primary care provider Medical Decision Making Lab Data Result diagrams: 11/13/21 11:54 11/13/21 11:54 Labs: Lab Results 11/13/21 11/13/21 11/13/21 Range/Units 11:54 11:54 13:26 WBC 8.8 (4.8-10.8) X10*3/uL RBC 2.98 L D (4.20-5.50) X10*6/uL Hgb 7.6 L D (12.0-16.0) g/dl Hct 24.8 L D (37.0-47.0) % MCV 83.2 (80.0-98.0) fL MCH 25.5 L (27.0-33.0) pg MCHC 30.6 L (31.0-35.0) g/dl RDW 17.2 H (11.0-16.0) % Plt Count 310 (160-400) X10*3/uL MPV 9.2 L (9.4-12.3) fL Immature Gran % (Auto) 0.3 (0.0-0.4) % Neut % (Auto) 70.4 (45-73) % Lymph % (Auto) 18.2 L (20-40) % [place] % (Auto) 8.1 (2-11) % Eos % (Auto) 2.7 (0-4) % Baso % (Auto) 0.3 (0-2) % Lymph # (Auto) 1.6 (1.2-4.9) X10*3/uL [place] # (Auto) 0.7 (0.1-1.2) X10*3/uL Eos # (Auto) 0.2 (0.0-0.4) X10*3/uL Baso # (Auto) 0.0 (0.0-0.2) X10*3/uL Abs Immat Gran (auto) 0.03 (0.00-0.03) X10*3/uL Absolute Neuts (auto) 6.2 (2.0-8.3) x10*3/uL Absolute Nucleated RBC 0.000 (0.0-0.012) X10*3/uL Nucleated RBC % (auto) 0.0 (0.0-0.2) /100WBC Sodium 138 (135-145) mmol/L Potassium 4.3 (3.3-5.1) mmol/L Chloride 108 (96-108) mmol/L Carbon Dioxide 21 L (22-29) mmol/L Anion Gap 13 (12-20) BUN 21 H (9-16) mg/dL Creatinine 1.79 H (0.5-1.4) mg/dL Estim Creat Clear Calc 43.4 Estimated GFR 32 POC Glucose (60-115) mg/dL Random Glucose 54 L* (60-115) mg/dL Calcium 8.8 D (8.4-10.2) mg/dL Total Bilirubin 0.5 (0.0-1.0) mg/dL AST 14 D (5-31) U/L ALT 11 (0-31) U/L Alkaline Phosphatase 87 D (39-117) U/L Total Protein 7.0 (6.5-8.0) g/dL Albumin 4.0 (3.5-5.0) g/dL Lipase 52 (8-78) U/L Urine Color YELLOW Urine Appearance HAZY Urine pH 5.5 (5.0-8.0) Ur Specific [place] <= 1.005 (1.005-1.025) Urine Protein NEG (NEG-TRACE) MG/DL Urine Glucose (UA) NEG (NEG) MG/DL Urine Ketones NEG (NEG) MG/DL Urine Blood NEG (NEG) Urine Nitrite NEG (NEG) Ur Leukocyte Esterase NEG (NEG) Stool Occult Blood (NEGATIVE) 11/13/21 11/13/21 Range/Units 14:02 15:25 WBC (4.8-10.8) X10*3/uL RBC (4.20-5.50) X10*6/uL Hgb (12.0-16.0) g/dl Hct (37.0-47.0) % MCV (80.0-98.0) fL MCH (27.0-33.0) pg MCHC (31.0-35.0) g/dl RDW (11.0-16.0) % Plt Count (160-400) X10*3/uL MPV (9.4-12.3) fL Immature Gran % (Auto) (0.0-0.4) % Neut % (Auto) (45-73) % Lymph % (Auto) (20-40) % [place] % (Auto) (2-11) % Eos % (Auto) (0-4) % Baso % (Auto) (0-2) % Lymph # (Auto) (1.2-4.9) X10*3/uL [place] # (Auto) (0.1-1.2) X10*3/uL Eos # (Auto) (0.0-0.4) X10*3/uL Baso # (Auto) (0.0-0.2) X10*3/uL Abs Immat Gran (auto) (0.00-0.03) X10*3/uL Absolute Neuts (auto) (2.0-8.3) x10*3/uL Absolute Nucleated RBC (0.0-0.012) X10*3/uL Nucleated RBC % (auto) (0.0-0.2) /100WBC Sodium (135-145) mmol/L Potassium (3.3-5.1) mmol/L Chloride (96-108) mmol/L Carbon Dioxide (22-29) mmol/L Anion Gap (12-20) BUN (9-16) mg/dL Creatinine (0.5-1.4) mg/dL Estim Creat Clear Calc Estimated GFR POC Glucose 163 H (60-115) mg/dL Random Glucose (60-115) mg/dL Calcium (8.4-10.2) mg/dL Total Bilirubin (0.0-1.0) mg/dL AST (5-31) U/L ALT (0-31) U/L Alkaline Phosphatase (39-117) U/L Total Protein (6.5-8.0) g/dL Albumin (3.5-5.0) g/dL Lipase (8-78) U/L Urine Color Urine Appearance Urine pH (5.0-8.0) Ur Specific [place] (1.005-1.025) Urine Protein (NEG-TRACE) MG/DL Urine Glucose (UA) (NEG) MG/DL Urine Ketones (NEG) MG/DL Urine Blood (NEG) Urine Nitrite (NEG) Ur Leukocyte Esterase (NEG) Stool Occult Blood NEGATIVE (NEGATIVE) ECG Data Interpretation: Sinus at a rate of 93, MS interval 120, QRS 74, QTC is not prolonged at 04:32, normal axis, no ST depression or elevation, no T-wave abnormality Discharge Plan Discharge Clinical Impression: Abdominal pain, Anemia, Back pain Patient Disposition: Home, Self-Care Instructions: Abdominal Pain (ED), Anemia (ED), Back Pain (ED) Additional Instructions: The CT of your lumbar spine in your abdomen were negative today, your labs were normal and your urine was normal, the only abnormality is that you have a low red blood cell count. Please follow-up with your primary care provider for this, please call on Monday for an appointment from today's emergency room visit, please return to emergency room for any new or concerning symptoms Prescriptions: No Action omeprazole 20 mg capsule,delayed release(DR/EC) 20 mg PO DAILY naproxen 500 mg tablet 500 mg PO BID PRN (Reason: Pain) insulin lispro 100 unit/mL insulin pen 4 - 5 unit subcut TIDAC insulin glargine 100 unit/mL (3 mL) insulin pen 22 unit subcut BEDTIME cyanocobalamin (vitamin B-12) 100 mcg tablet 1 tab PO DAILY cyclobenzaprine 10 mg tablet 10 mg PO TID PRN (Reason: muscle spasm) Qty: 14 0RF lidocaine 5 % adhesive patch,medicated 1 patch topical DAILY Qty: 30 0RF Rx Instructions: leave on most painful area for up to 12 hrs ferrous fumarate 325 mg (106 mg iron) tablet 325 mg PO DAILY Qty: 30 1RF vitamin B complex [Vitamins B Complex] Tablet 1 tab PO DAILY Qty: 30 0RF dicyclomine 10 mg capsule 10 mg PO TID PRN (Reason: abdominal discomfort) Qty: 90 0RF
--- NOTE | 2021-11-13 11:42 | ECG_ITS ---
Test Reason : BACK PAIN Blood Pressure : / mmHG Vent. Rate : 093 BPM Atrial Rate : 093 BPM P-R Int : 120 ms QRS Dur : 074 ms QT Int : 348 ms P-R-T Axes : 062 -28 010 degrees QTc Int : 432 ms Normal sinus rhythm Normal ECG When compared with ECG of 11-MAR-2021 12:17, No significant changes seen Referred By: Michelle Mjeia Electronically Signed By:AGUILA MELO
[2021-11-13] MEDS: oxyCODONE HCl Immed Release 5 MG TABLET 10 MG PO (11:56)
[2021-11-13] MEDS: Ondansetron ODT 4 MG TAB.RAPDIS TRANSLINGU (11:56)
[2021-11-13 11:57] LABS: MANUAL DIFF FLAG NO
[2021-11-13 11:59] LABS: Basophils Percent Auto 0.3 % (0-2); Eosinophils Absolute Auto 0.2 X10*3/uL (0.0-0.4); Eosinophils Percent Auto 2.7 % (0-4); Hematocrit 24.8 % (37.0-47.0); Hemoglobin 7.6 g/dl (12.0-16.0); Imm Gran Abs Auto 0.03 X10*3/uL (0.00-0.03); Imm Gran Pct Auto 0.3 % (0.0-0.4); Lymphocytes Absolute Auto 1.6 X10*3/uL (1.2-4.9); Lymphocytes Percent Auto 18.2 % (20-40); Mean Corpuscular HGB Conc 30.6 g/dl (31.0-35.0); Mean Corpuscular Hemoglobin 25.5 pg (27.0-33.0); Mean Corpuscular Volume 83.2 fL (80.0-98.0); Mean Platelet Volume 9.2 fL (9.4-12.3); Monocytes Absolute Auto 0.7 X10*3/uL (0.1-1.2); Monocytes Percent Auto 8.1 % (2-11); Neutrophils Absolute Auto 6.2 x10*3/uL (2.0-8.3); Neutrophils Percent Auto 70.4 % (45-73); Platelet Count 310 X10*3/uL (160-400); Red Blood Count 2.98 X10*6/uL (4.20-5.50); Red Cell Distribution Width 17.2 % (11.0-16.0); White Blood Count 8.8 X10*3/uL (4.8-10.8)
[2021-11-13 12:52] LABS: Glucose Random 54 mg/dL (60-115)
[2021-11-13 12:53] LABS: Alanine Aminotransferase 11 U/L (0-31); Alkaline Phosphatase 87 U/L (39-117); Anion Gap 13 (12-20); Aspartate Amino Transferase 14 U/L (5-31); Bilirubin Total 0.5 mg/dL (0.0-1.0); Blood Urea Nitrogen 21 mg/dL (9-16); Calcium 8.8 mg/dL (8.4-10.2); Carbon Dioxide 21 mmol/L (22-29); Chloride 108 mmol/L (96-108); Creatinine Clr Calc Pharmacy 43.4; Estimated Glomerular Filt Rate 32; Lipase 52 U/L (8-78); Potassium 4.3 mmol/L (3.3-5.1); Sodium 138 mmol/L (135-145)
[2021-11-13 13:19] VITALS: BP 121/72; PULSE 84; RESP 16; TEMP 37.1; O2SAT 100
[2021-11-13 13:34] LABS: Appearance Urine HAZY; Color Urine YELLOW; Glucose Urine UA NEG (NEG); Leukocyte Esterase Urine NEG (NEG); Nitrite Urine NEG (NEG); PH 5.5 (5.0-8.0); Specific Gravity - Urine <= 1.005 (1.005-1.025); Urine Blood NEG (NEG); Urine Ketones NEG (NEG); Urine Protein NEG (NEG-TRACE)
[2021-11-13 14:25] LABS: OBS Int Ctl Valid YES; OBS1 NEGATIVE (NEGATIVE)
[2021-11-13] MEDS: LORazepam 1 MG TABLET PO (14:31)
[2021-11-13] MEDS: oxyCODONE HCl Immed Release 5 MG TABLET PO (14:31)
[2021-11-13 15:28] LABS: Glucose, Whole Blood 163 mg/dL (60-115)
== END 2021-11-13 15:58 | disposition home or self-care (01) ==
PROVIDERS: Physician Assistant; Emergency Provider Emergency Medicine Emergency Medical Services
DX: R10.9 Unspecified abdominal pain (principal); D64.9 Anemia, unspecified; M54.50 Low back pain, unspecified; R11.2 Nausea with vomiting, unspecified; R53.1 Weakness; E11.22 Type 2 diabetes mellitus with diabetic chronic kidney disease; I12.9 Hypertensive chronic kidney disease with stage 1 through stage 4 chronic kidney disease, or unspecified chronic kidney disease; N18.9 Chronic kidney disease, unspecified; Z79.4 Long term (current) use of insulin; F41.9 Anxiety disorder, unspecified; Z89.519 Acquired absence of unspecified leg below knee
CPT/HCPCS: 36415; 72131; 74176; 80053; 81003; 82272; 82947; 83690; 85025; 93005; 99284

== ENCOUNTER 2022-02-26 15:22 | Emergency (ER) | payer OTHER, SELFPAY ==
--- NOTE | ~2022-02-26 | XR_ITS ---
EXAMINATION: XR CHEST CLINICAL INFORMATION: Covid COMPARISON: 08/11/2021 TECHNIQUE: Frontal view of the chest was obtained. FINDINGS: Normal symmetric lung volumes. No parenchymal consolidation. No pleural effusion. No pneumothorax. Cardiomediastinal silhouette and pulmonary vascularity are within normal limits. No acute osseous abnormalities. XR/XR chest 1V IMPRESSION: Negative exam.
[2022-02-26 15:28] VITALS: BP 112/66; PULSE 98; RESP 18; TEMP 36.3; O2SAT 100; BMI 23.6
[2022-02-26 15:48] LABS: MANUAL DIFF FLAG NO
[2022-02-26 15:51] LABS: Appearance Urine Clear; Color Urine Yellow; Glucose Urine UA Negative (Negative); Leukocyte Esterase Urine Negative (Negative); Nitrite Urine Negative (Negative); UMIC TRIGGER UACC YES; Urine Blood Large (3+) (Negative); Urine Ketones Negative (Negative); Urine Protein 30 (1+) mg/dL (Neg-Trace)
[2022-02-26 15:56] LABS: UPreg QC Valid YES; Urine Pregnancy NEGATIVE (NEGATIVE)
--- NOTE | 2022-02-26 15:59 | ED_ITS ---
HPI - Abdominal Pain General Chief Complaint: Abdominal Pain Stated Complaint: + covid..coughing chest congestion Time Seen by Provider: 02/26/22 15:58 Source: patient and old records reviewed Mode of arrival: ambulatory Limitations: no limitations History of Present Illness HPI narrative: 36-year-old female with a history of DM 1, gastroparesis, s/p right BKA, chronic pain, GERD, anxiety/depression, chronic anemia, HTN, CKD who presents to the ER for evaluation of body aches, abdominal pain, nausea, vomiting, and coughing after testing positive for COVID yesterday at [facility]. She states she presented there for the same symptoms, was given some fluids, pain medicine and discharged. She states she was vomiting last night and this morning so she did not take her insulin. She has not eaten. She reports a dry cough that kept her up all night. She has diffuse body aches, pains across her chest and entire abdomen. She is unvaccinated for COVID. MD elicited complaint: abdominal pain and other (body aches, cough) Onset (ago): day(s) (2) Pain Consistency: constant Location: diffuse Severity: moderate Quality: stabbing and aching Radiation: none Migration to: no migration Exacerbating factors: eating Relieving factors: other (standing) Context: history of similar episodes Associated symptoms: nausea and vomiting Related Data Home Medications Medication Instructions Recorded Confirmed cyanocobalamin (vitamin B-12) 100 1 tab PO DAILY 02/09/21 10/04/21 mcg tablet insulin glargine 100 unit/mL (3 22 unit subcut BEDTIME 10/04/21 10/04/21 mL) subcutaneous pen insulin lispro 100 unit/mL 4 - 5 unit subcut TIDAC 10/04/21 10/04/21 subcutaneous pen naproxen 500 mg tablet 500 mg PO BID PRN Pain 10/04/21 10/04/21 omeprazole 20 mg capsule,delayed 20 mg PO DAILY 10/04/21 10/04/21 release Previous Rx's Medication Instructions Recorded dicyclomine 10 mg capsule 10 mg PO TID PRN abdominal 03/30/21 discomfort #90 caps ferrous fumarate 325 mg (106 mg 325 mg PO DAILY #30 tabs 03/30/21 iron) tablet vitamin B complex (Vitamins B 1 tab PO DAILY #30 tabs 03/30/21 Complex tablet) cyclobenzaprine 10 mg tablet 10 mg PO TID PRN muscle spasm #14 11/10/21 tabs lidocaine 5 % topical patch 1 patch topical DAILY #30 ea 11/10/21 metoclopramide HCl 10 mg tablet 10 mg PO AC PRN nausea and 02/26/22 (Reglan) vomiting #14 tabs Allergies Allergy/AdvReac Type Severity Reaction Status Date / Time morphine [MORPHINE] Allergy Unknown HIVES Verified 07/06/21 09:55 raspberry [Raspberry] Allergy Unknown HIVES Verified 07/06/21 09:55 nitrofurantoin AdvReac Unknown GI side Verified 07/06/21 09:55 [From Macrobid] effects Review of Systems Review of Systems Constitutional: No Fever, No Chills ENT/Mouth: + sore throat, No Rhinorrhea, No Swallowing Difficulty Eyes: No Eye Pain, No Swelling, No Redness Cardiovascular: +Chest Pain, + SOB, No Orthopnea, No Edema Respiratory: + Cough, No Sputum, No Wheezing, No dyspnea Gastrointestinal: + Nausea, + Vomiting, No Diarrhea, + abdominal Pain Genitourinary: No Dysuria, No Urinary Frequency, No Hematuria Musculoskeletal: + joint pain, + Myalgias Skin: No Skin Lesions, No rash Neuro: +Weakness, No Numbness, No Dizziness, + Headache Psych: No Anxiety/Panic, No Depression Heme/Lymph: No Bruising, No Lymphadenopathy Endocrine: No Polyuria, No Polydipsia PMFSH Past Medical History Medical History Anxiety Chronic kidney disease Chronic pain disorder Diabetes Gastroparesis GERD without esophagitis Hordeolum externum of right eye Hypertension Iron deficiency anemia Nausea Surgical History History of right cataract surgery Hx of right BKA Family History Family History Father Hyperlipidemia Mother Stomach cancer Sister Diabetes Mental health disorder Social History Social History Housing: Apartment Alcohol intake: never Patient Tobacco Use Status: Never used Tobacco e-Cigarette/Vaping Use: Never Used Second Hand Smoke Exposure: No Use of substances other than those prescribed or required for medical reasons: No Substance Use Type: Marijuana Advance Directives: Yes Advance Directives on File: Yes Advance Directives Date on File: 02/09/21 service: No Current occupational status: disabled Cognitive needs: No Hearing needs: No Vision needs: Yes (annual eye exam) Physical Exam ED Vital Signs: Vital Signs - 24 hr 02/26/22 15:28 02/26/22 16:00 Temperature 97.3 F 99.3 F Pulse Rate 98 94 Respiratory Rate 18 18 Blood Pressure 112/66 98/55 L Pulse Oximetry 100 98 Oxygen Delivery Method Room Air Room Air BMI result Body Mass Index 23.6 Appearance: Alert. Oriented X3. No acute distress. Eyes: Pupils equal, round and reactive to light. ENT: Pharynx normal. Moist mucus membranes Neck: Normal inspection. Neck supple. CVS: Normal heart rate and rhythm. Pulses normal. Respiratory: No respiratory distress. Breath sounds normal. Abdomen: Soft with mild diffuse tenderness, normal +BS x4 Skin: Skin warm and dry. Normal skin color. Normal skin turgor. No rashes. Extremities: s/p right BKA, no LE edema on the left. Neuro: Oriented X 3. No motor deficit. No sensory deficit. Ambulating around in the room. Course Course Course Narrative: 36-year-old female with history of type 1 diabetes, CKD, right BKA, gastroparesis, chronic pain, GERD, chronic anemia who presents to the ER for evaluation of not feeling well in the setting of being diagnosed with COVID-19 yesterday. She reports diffuse body aches, abdominal pain, nausea, vomiting, chest pains, headache, cough. On arrival to the ER today she appears well, much better than her usual presentations. She is hemodynamically stable, afebrile and saturating 100% on room air. Her lungs are clear. No point tenderness on exam without any guarding of her abdomen. Labs are pending. Will give her dose of Reglan, this has worked for her in the past with a gastro paresis. Will check a point of care, she does not appear to be in DKA given her clinical presentation however she has not taken her insulin in > 12 hours. Reevaluation(s) Reevaluation #1: Labs are unremarkable. Her point of care is 132. Her glucose in her serum is 150. She was given Reglan for her nausea with some slight improvement. She states that Tylenol does not help her pains and she is asking for something stronger. She cannot take NSAIDs due to her CKD. Patient explained that and beds and Tylenol the mainstay of treatment for body aches and pains due to COVID and narcotics are not warranted at this time. Reevaluation #2: Patient eloped. MDM - Abdominal Pain Lab Data Result diagrams: 02/26/22 15:39 02/26/22 15:39 Labs: Lab Results 02/26/22 02/26/22 02/26/22 Range/Units 15:39 15:39 15:39 WBC 8.1 (4.8-10.8) X10*3/uL RBC 3.31 L (4.20-5.50) X10*6/uL Hgb 8.2 L (12.0-16.0) g/dl Hct 26.7 L (37.0-47.0) % MCV 80.7 (80.0-98.0) fL MCH 24.8 L (27.0-33.0) pg MCHC 30.7 L (31.0-35.0) g/dl RDW 17.9 H (11.0-16.0) % Plt Count 487 H D (160-400) X10*3/uL MPV 9.5 (9.4-12.3) fL Immature Gran % (Auto) 0.4 (0.0-0.4) % Neut % (Auto) 65.2 (45-73) % Lymph % (Auto) 23.1 (20-40) % [place] % (Auto) 8.3 (2-11) % Eos % (Auto) 1.8 (0-4) % Baso % (Auto) 1.2 (0-2) % Lymph # (Auto) 1.9 (1.2-4.9) X10*3/uL [place] # (Auto) 0.7 (0.1-1.2) X10*3/uL Eos # (Auto) 0.2 (0.0-0.4) X10*3/uL Baso # (Auto) 0.1 (0.0-0.2) X10*3/uL Abs Immat Gran (auto) 0.03 (0.00-0.03) X10*3/uL Absolute Neuts (auto) 5.3 (2.0-8.3) x10*3/uL Absolute Nucleated RBC 0.000 (0.0-0.012) X10*3/uL Nucleated RBC % (auto) 0.0 (0.0-0.2) /100WBC Sodium 136 (135-145) mmol/L Potassium 4.5 (3.3-5.1) mmol/L Chloride 103 (96-108) mmol/L Carbon Dioxide 20 L (22-29) mmol/L Anion Gap 18 (12-20) BUN 16 (9-16) mg/dL Creatinine 1.78 H (0.5-1.4) mg/dL Estim Creat Clear Calc 43.6 Estimated GFR 32 POC Glucose (60-115) mg/dL Random Glucose 150 H (60-115) mg/dL Calcium 9.4 D (8.4-10.2) mg/dL Total Bilirubin 0.3 (0.0-1.0) mg/dL Direct Bilirubin < 0.2 (0.0-0.5) mg/dL AST 31 D (5-31) U/L ALT 29 (0-31) U/L Alkaline Phosphatase 94 (39-117) U/L Total Protein 7.9 (6.5-8.0) g/dL Albumin 4.4 (3.5-5.0) g/dL Lipase 171 H (8-78) U/L Urine Color Urine Appearance Urine pH (5.0-9.0) Ur Specific [place] (1.005-1.025) Urine Protein (Neg-Trace) mg/dL Urine Glucose (UA) (Negative) mg/dL Urine Ketones (Negative) mg/dL Urine Blood (Negative) Urine Nitrite (Negative) Ur Leukocyte Esterase (Negative) Urine RBC (0-2) /HPF Urine WBC (0-5) /HPF Ur Squamous Epith Cells (0-2) /HPF Urine Bacteria (None Seen) Hyaline Casts (0-2) /LPF Urine Test (NEGATIVE) COVID-19 (FANNIE) Negative (Negative) COVID-19 Clin Com See Note 02/26/22 02/26/22 02/26/22 Range/Units 15:39 15:39 16:16 WBC (4.8-10.8) X10*3/uL RBC (4.20-5.50) X10*6/uL Hgb (12.0-16.0) g/dl Hct (37.0-47.0) % MCV (80.0-98.0) fL MCH (27.0-33.0) pg MCHC (31.0-35.0) g/dl RDW (11.0-16.0) % Plt Count (160-400) X10*3/uL MPV (9.4-12.3) fL Immature Gran % (Auto) (0.0-0.4) % Neut % (Auto) (45-73) % Lymph % (Auto) (20-40) % [place] % (Auto) (2-11) % Eos % (Auto) (0-4) % Baso % (Auto) (0-2) % Lymph # (Auto) (1.2-4.9) X10*3/uL [place] # (Auto) (0.1-1.2) X10*3/uL Eos # (Auto) (0.0-0.4) X10*3/uL Baso # (Auto) (0.0-0.2) X10*3/uL Abs Immat Gran (auto) (0.00-0.03) X10*3/uL Absolute Neuts (auto) (2.0-8.3) x10*3/uL Absolute Nucleated RBC (0.0-0.012) X10*3/uL Nucleated RBC % (auto) (0.0-0.2) /100WBC Sodium (135-145) mmol/L Potassium (3.3-5.1) mmol/L Chloride (96-108) mmol/L Carbon Dioxide (22-29) mmol/L Anion Gap (12-20) BUN (9-16) mg/dL Creatinine (0.5-1.4) mg/dL Estim Creat Clear Calc Estimated GFR POC Glucose 132 H (60-115) mg/dL Random Glucose (60-115) mg/dL Calcium (8.4-10.2) mg/dL Total Bilirubin (0.0-1.0) mg/dL Direct Bilirubin (0.0-0.5) mg/dL AST (5-31) U/L ALT (0-31) U/L Alkaline Phosphatase (39-117) U/L Total Protein (6.5-8.0) g/dL Albumin (3.5-5.0) g/dL Lipase (8-78) U/L Urine Color Yellow Urine Appearance Clear Urine pH 6.0 (5.0-9.0) Ur Specific [place] 1.020 (1.005-1.025) Urine Protein 30 (1+) H (Neg-Trace) mg/dL Urine Glucose (UA) Negative (Negative) mg/dL Urine Ketones Negative (Negative) mg/dL Urine Blood Large (3+) H (Negative) Urine Nitrite Negative (Negative) Ur Leukocyte Esterase Negative (Negative) Urine RBC 3-5 H (0-2) /HPF Urine WBC 0-5 (0-5) /HPF Ur Squamous Epith Cells 6-10 (0-2) /HPF Urine Bacteria None Seen (None Seen) Hyaline Casts 0-2 (0-2) /LPF Urine Test NEGATIVE (NEGATIVE) COVID-19 (FANNIE) (Negative) COVID-19 Clin Com Discharge Plan Discharge Clinical Impression: Chronic abdominal pain, Acute viral syndrome Patient Disposition: Elopement Instructions: Viral Syndrome (ED) Additional Instructions: Your lab workup today was stable. Recommend rest, staying hydrated with plenty of oral fluids. Recommend Tylenol 975 mg every 6 hours around the clock for pain. Take the prescribed Reglan before meals an attempt to improve her nausea and vomiting. Stick to a bland diet while you are not feeling well. Prescriptions: New metoclopramide HCl [Reglan] 10 mg tablet 10 mg PO AC PRN (Reason: nausea and vomiting) Qty: 14 0RF No Action omeprazole 20 mg capsule,delayed release(DR/EC) 20 mg PO DAILY naproxen 500 mg tablet 500 mg PO BID PRN (Reason: Pain) insulin lispro 100 unit/mL insulin pen 4 - 5 unit subcut TIDAC insulin glargine 100 unit/mL (3 mL) insulin pen 22 unit subcut BEDTIME cyanocobalamin (vitamin B-12) 100 mcg tablet 1 tab PO DAILY cyclobenzaprine 10 mg tablet 10 mg PO TID PRN (Reason: muscle spasm) Qty: 14 0RF lidocaine 5 % adhesive patch,medicated 1 patch topical DAILY Qty: 30 0RF Rx Instructions: leave on most painful area for up to 12 hrs ferrous fumarate 325 mg (106 mg iron) tablet 325 mg PO DAILY Qty: 30 1RF vitamin B complex [Vitamins B Complex] Tablet 1 tab PO DAILY Qty: 30 0RF dicyclomine 10 mg capsule 10 mg PO TID PRN (Reason: abdominal discomfort) Qty: 90 0RF
[2022-02-26 16:00] VITALS: BP 98/55; PULSE 94; RESP 18; TEMP 37.4; O2SAT 98
[2022-02-26 16:06] LABS: Bacteria Urine None Seen (None Seen); Hyaline Casts Urine 0-2 /LPF (0-2); WBC Urine 0-5 /HPF (0-5)
[2022-02-26 16:07] LABS: Alanine Aminotransferase 29 U/L (0-31); Albumin Level 4.4 g/dL (3.5-5.0); Alkaline Phosphatase 94 U/L (39-117); Anion Gap 18 (12-20); Aspartate Amino Transferase 31 U/L (5-31); Bilirubin Direct < 0.2 mg/dL (0.0-0.5); Bilirubin Total 0.3 mg/dL (0.0-1.0); Blood Urea Nitrogen 16 mg/dL (9-16); Calcium 9.4 mg/dL (8.4-10.2); Carbon Dioxide 20 mmol/L (22-29); Chloride 103 mmol/L (96-108); Creatinine Clr Calc Pharmacy 43.6; Estimated Glomerular Filt Rate 32; Glucose Random 150 mg/dL (60-115); Lipase 171 U/L (8-78); Potassium 4.5 mmol/L (3.3-5.1); Sodium 136 mmol/L (135-145); Total Protein 7.9 g/dL (6.5-8.0)
--- OUTSIDE RECORDS SUMMARY | 2022-02-26 16:13 | XMS_ITS | Continuity of Care Document ---
:1985 Author Organization [facility] Address [address] [place] [address]- Care Team Providers Name Role Phone Not on Staff, PCP Primary Care Physician Unavailable [id number] Date(s[facility] 01/14/21 - 01/14/21 [facility] [address] [place] [address]- Encounter Diagnosis Allergic contact dermatitis (Final) - 01/14/21 Discharge Disposition: A-D/C Home Attending Physician: Will Ring MD Admitting Physician: Will Ring MD Referring Physician: Not on Staff, Referring MD Allergies, Adverse Reactions, Alerts Substance Reaction Severity Status raspberry HIVES,RASH Active Morphine Sulfate1, 2 Active 1Tolerates Tylenol #4, 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, 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 #3 Immunizations Given and Recorded Vaccine Date Status Refusal Reason influenza virus vaccine, inactivated 02/12/20 Given influenza virus vaccine, inactivated 04/29/19 Recorded influenza virus vaccine, inactivated 04/04/16 Recorded influenza virus vaccine, inactivated 03/13/16 Given influenza virus vaccine, inactivated 04/16/14 Recorded influenza virus vaccine, inactivated 05/22/13 Recorded influenza virus vaccine, inactivated 02/02/12 Recorded influenza virus vaccine, inactivated1 01/14/12 Given influenza virus vaccine, inactivated 02/15/11 Recorded influenza virus vaccine, inactivated2 05/27/10 Given pneumococcal 23-valent vaccine 04/29/19 Recorded pneumococcal 23-valent vaccine 03/25/13 Recorded pneumococcal 23-valent vaccine 02/26/11 Recorded tetanus/diphtheria/pertussis, acel(Tdap) 01/11/16 Recorde d tetanus/diphtheria/pertussis, acel(Tdap) 02/15/11 Recorde d tetanus/diphtheria/pertussis, acel(Tdap)3 12/16/09 Given tetanus-diphtheria toxoids (Td) 07/27/00 Recorded tetanus-diphtheria toxoids (Td) 06/20/86 Recorded tetanus-diphtheria toxoids (Td) 84 Recorded Measles/Mumps/Rubella Virus Vaccine 09/13/94 Recorded Measles/Mumps/Rubella Virus Vaccine 10/08/85 Recorded 1Admin Note: Pt received vaccine at PCP Aida Carroll's office.2Admin Note: MANUFACTURE BIOMEDICAL INFO SHEET GIVEN GIVEN W/O [id number] Note: GIVEN W/O INCIDENT INFO SHEET GIVEN Medications acetaminophen-codeine 300 mg-30 mg oral tablet 1, tablet, By Mouth, Every 4 hours, PRN, Refills 0, Maintenance, for pain, 03/16/20 13:35:00 EST, Tablet Start Date: 03/16/20 Status: Orderedbetamethasone topical dipropionate 0.05% cream 1 application, Topically, 2 times a day, for 10 days, to affected areas, # 50 Gm, 0 Refills, Acute 01/24/21 12:19:00 EDT, 01/14/21 12:19:00 EDT, Cream, [facility]/pharmacy #[id number], Partial fill upon patient request if the prescription is for a schedule II opio... Start Date: 01/14/21 Stop Date: 01/24/21 Status: Orderedcyanocobalamin 100 mcg oral tablet 100 mcg, 1, tablet, By Mouth, Daily, # 30 tablet, Refills 0, Tot. Refills 0, Maintenance, 12/14/20 9:12:00 EDT, Route to Pharmacy Electronically, [facility]/pharmacy #[id number], Partial fill upon patient request if the prescription is for a schedule II opioid charmaine... Start Date: 12/14/20 Status: Ordereddicyclomine 10 mg oral capsule TK 1 C PO TID Start Date: 03/16/20 Status: Orderedferrous sulfate 325 mg oral enteric coated tablet 325 mg, 1, tablet, By Mouth, Daily, # 30 tablet, Refills 0, Tot. Refills 0, Maintenance, 12/14/20 9:12:00 EDT, Route to Pharmacy Electronically, [facility]/pharmacy #[id number], Partial fill upon patient request ifthe prescription is for a schedule II opioid drug... Start Date: 12/14/20 Stop Date: 01/13/21 Status: Orderedfolic acid 1 mg oral tablet 1 mg, 1, tablet, By Mouth, Daily, # 30 tablet, Refills 0, Maintenance, 03/16/20 13:35:00 EST Start Date: 03/16/20 Status: Orderedgabapentin 100 mg oral capsule 100 mg, 1, capsule, By Mouth, Daily, # 90 capsule, Refills 0, Maintenance, 03/16/20 13:36:00 EST Start Date: 03/16/20 Status: OrderedHumalog 100 u/ml subcutaneous injection = 14 units, INJECT 22 UNITS 4 TIMES A DAY Start Date: 11/26/16 Status: OrderedLantus Solostar Pen 100 units/mL subcutaneous solution = 60 units, Subcutaneous Injection, Daily at bedtime, 0 Refills, Maintenance, 11/26/16 17:07:29 EDT Start Date: 11/26/16 Status: OrderedLORazepam 1 mg oral tablet TAKE 1 TABLET BY MOUTH EVERY 6 HOURS NEEDED FOR ANXIETY Start Date: 11/26/16 Status: OrderedPAIN RELIEVER R/S 325MG TABS PAIN RELIEVER R/S 325MG TABS, 0 Refills, Maintenance, 03/16/20 13:36:00 EST Start Date: 03/16/20 Status: Orderedpantoprazole 40 mg oral delayed release tablet 1 tablet = 40 mg, By Mouth, Daily, # 30 tablet, 0 Refills, Maintenance, 03/16/20 13:36:00 EST, EC Tablet Start Date: 03/16/20 Status: OrderedZofran 4 mg oral tablet 1 tablet = 4 mg, By Mouth, Every 8 hours, # 12 tablet, 0 Refills, Maintenance, 02/12/20 11:39:00 EDT, Tablet Start Date: 02/12/20 Status: Ordered Problem List Condition Effective Dates Status Health Status Informant Anemia(Confirmed) Active Anxiety(Confirmed) Active Diabetes mellitus(Confirmed) 2000 Active Gastroparesis due to DM(Confirmed) 02/11/12 Active Hypertension(Confirmed) Active Intractable nausea and Active vomiting(Confirmed) Nausea and vomiting(Confirmed) Active Vomiting(Confirmed) Active Vital Signs Most recent to oldest [Reference Range]: 1 Height 173 cm (01/14/21 11:08 AM) Weight 77.8 kg (01/14/21 11:08 AM) Oxygen Saturation [94-100 %] 100 % (01/14/21 11:08 AM) Pulse Rate [55-90 bpm] 116 bpm *H* (01/14/21 11:08 AM) Blood Pressure [90-138/55-84 mm Hg] 93/54 mm Hg (01/14/21 11:08 AM) Respiratory Rate [16-30 br/min] 10 br/min *L* (01/14/21 11:08 AM) Temperature [96.8-100.4 DegF] 97.1 DegF (01/14/21 11:08 AM) Mode of Delivery (Oxygen) Room air (01/14/21 11:08 AM) Dry Weight 77.8 kg (01/14/21 11:08 AM) Weight Obtained Via Standing scale (01/14/21 11:08 AM) Social History Social History Type Response Smoking Status Never smoker entered on: 02/19/16 Sex
--- OUTSIDE RECORDS SUMMARY | 2022-02-26 16:13 | XMS_ITS | Continuity of Care Document ---
:1985 Author Organization [facility] Address [address] [place] [address]- Care Team Providers Name Role Phone Arnol BAEZ, Asma Primary Care Physician Encounter [facility] Date(s): 03/16/20 - 03/16/[address] [address]- [facility] Encounter Diagnosis Chronic generalized abdominal pain (Final) - 03/16/20 Acute anxiety (Final) - 03/16/20 Diabetic gastroparesis (Final) - 03/16/20 Discharge Disposition: A-D/C Home Attending Physician: Will Ring MD Admitting Physician: Will Ring MD Referring Physician: Not on Staff, Referring MD Allergies, Adverse Reactions, Alerts Substance Reaction Severity Status raspberry HIVES,RASH Active 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, 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 #3 Immunizations Given and Recorded Vaccine Date Status Refusal Reason influenza virus vaccine, inactivated 02/12/20 Given influenza virus vaccine, inactivated 03/13/16 Given influenza virus vaccine, inactivated1 01/14/12 Given influenza virus vaccine, inactivated2 05/27/10 Given tetanus/diphtheria/pertussis, acel(Tdap)3 12/16/09 Given 1Admin Note: Pt received vaccine at PCP Aida Carroll's office.2Admin Note: MANUFACTURE BIOMEDICAL INFO SHEET GIVEN GIVEN W/O [id number] Note: GIVEN W/O INCIDENT INFO SHEET GIVEN Medications acetaminophen-codeine 300 mg-30 mg oral tablet 1, tablet, By Mouth, Every 4 hours, PRN, Refills 0, Maintenance, for pain, 03/16/20 13:35:00 EST, Tablet Start Date: 03/16/20 Status: Ordereddicyclomine 10 mg oral capsule TK 1 C PO TID Start Date: 03/16/20 Status: Orderedfolic acid 1 mg oral tablet [...] EST, EC Tablet Start Date: 03/16/20 Status: Orderedpantoprazole 40 mg oral delayed release tablet 1 tablet = 40 mg, By Mouth, Daily, # 30 tablet, 0 Refills, Maintenance, 02/12/20 11:39:00 EDT, EC Tablet Start Date: 02/12/20 Status: OrderedZofran 4 mg oral tablet 1 tablet = 4 mg, By Mouth, Every 8 hours, # 12 tablet, 0 Refills, Maintenance, 02/12/20 11:39:00 EDT, Tablet Start Date: 02/12/20 Status: OrderedZofran ODT 4 mg oral tablet, disintegrating 1 tablet = 4 mg, By Mouth, 3 times a day, PRN Nausea & Vomiting, # 30 tablet, 0 Refills, Maintenance, 02/03/19 11:30:53 EDT Start Date: 02/03/19 Stop Date: 02/13/19 Status: Ordered Problem List Condition Effective Dates Status Health Status Informant Anemia(Confirmed) Active Anxiety(Confirmed) Active Diabetes mellitus(Confirmed) 2000 Active Gastroparesis due to DM(Confirmed) 02/11/12 Active Hypertension(Confirmed) Active Vomiting(Confirmed) Active Results Radiology Reports Exam Date Time Procedure Performing Provider Status 03/16/20 2:15 PM Abdomen AP Ana Gonzalez; Auth (Melyifmary d) Notes:(Abdomen AP) Reason For Exam: PainRESULT: XR Abdomen AP [facility] XR Abdomen AP INDICATION/CLINICAL QUESTION: Hx of Present Illness: Patient has chronic issues with constipation and hellen mahajan had a BM in 3days. Patient also states she has not taken her pain medication today;Reason: Pain; Clinical Question(s): Constipation. Constipation COMPARISON: CT abdomen and pelvis, 02/11/2020. FINDINGS: Normal bowel gas pattern. No evidence of obstruction or significant stool burden. No evidence of pneumoperitoneum. No organomegaly, masses or calcifications. No acute bone findings. Gastric stimulator in the left upper quadrant. IMPRESSION: No acute abnormality. WSN: [id number] Ordering Physician: Ina Samuel Dictated By: Jax Manriquez MD Dictated Date/Time: 03/16/20 2:20 pm Reviewed By: Jax Manriquez MD Signed By: Jax Manriquez MD Signed Date/Time: 03/16/20 2:20 pm Transcribed By: CAROLE Transcribed Date/Time: 03/16/20 2:17 pm Vital Signs Most recent to oldest 1 2 3 [Reference Range]: Height 173 cm (03/16/20 1:35 PM) Weight 70.5 kg (03/16/20 1:35 PM) Oxygen Saturation [94-100 %] 97 % 97 % (03/16/20 3:30 PM) (03/16/20 1:35 PM) Pulse Rate [55-90 bpm] 69 bpm 78 bpm (03/16/20 3:30 PM) (03/16/20 1:35 PM) Blood Pressure [90-138/55-84 mm 103/59 mm Hg 101/67 mm Hg Hg] (03/16/20 3:30 PM) (03/16/20 1:35 PM) Respiratory Rate [16-30 br/min] 18 br/min 16 br/min 18 br/min (03/16/20 3:40 PM) (03/16/20 3:30 PM) (03/16/20 1:3 5 PM) Temperature [96.8-100.4 DegF] 97.8 DegF (03/16/20 1:35 PM) Mode of Delivery (Oxygen) Room air Room air (03/16/20 3:30 PM) (03/16/20 1:35 PM) Temperature Route Oral (03/16/20 1:35 PM) Dry Weight 70.5 kg (03/16/20 1:35 PM) Social History Social History Type Response Smoking Status Never smoker entered on: 02/19/16 Sex
--- OUTSIDE RECORDS SUMMARY | 2022-02-26 16:13 | XMS_ITS | Continuity of Care Document ---
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 #3 Immunizations Given and Recorded Vaccine Date Status Refusal Reason influenza virus vaccine, inactivated 02/12/20 Given influenza virus vaccine, inactivated 03/13/16 Given influenza virus vaccine, inactivated1 01/14/12 Given influenza virus vaccine, inactivated2 05/27/10 Given tetanus/diphtheria/pertussis, acel(Tdap)3 12/16/09 Given 1Admin Note: Pt received vaccine at PCP Aida Carroll's office.2Admin Note: MANUFACTURE BIOMEDICAL INFO SHEET GIVEN GIVEN W/O [id number] Note: GIVEN W/O INCIDENT INFO SHEET GIVEN [...] DM(Confirmed) 02/11/12 Active Hypertension(Confirmed) Active Vomiting(Confirmed) Active Social History Social History Type Response Smoking Status Never smoker entered on: 02/19/16 Sex
--- OUTSIDE RECORDS SUMMARY | 2022-02-26 16:13 | XMS_ITS | Continuity of Care Document ---
:1985 Author Organization [facility] Address [address] [place] [address]- Care Team Providers Name Role Phone Arnol BAEZ, Rebecca Primary Care Physician Encounter [facility] Date(s): 06/07/21 - 07/07/21 [facility] [address] [place] [id number] [place] Allergies, Adverse Reactions, Alerts Substance Reaction Severity Status raspberry HIVES,RASH Active Morphine Sulfate1, 2 Active 1Tolerates Tylenol #4, [id number] MYSQL DBA, 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 #3 Immunizations Given [...] 09/13/94 Recorded Measles/Mumps/Rubella Virus Vaccine 10/08/85 Recorded Not Given Vaccine Date Status Refusal Reason influenza virus vaccine, inactivated 03/21/21 Not Given Patient Refuses influenza virus vaccine, inactivated 03/13/21 Not Given Patient Refuses 1Admin Note: Pt received vaccine at PCP Aida Carroll's office.2Admin Note: MANUFACTURE BIOMEDICAL INFO SHEET GIVEN GIVEN W/O [id number] Note: GIVEN W/O INCIDENT INFO SHEET GIVEN Medications acetaminophen-codeine 300 mg-30 mg oral tablet 1, tablet, By Mouth, Every 4 hours, PRN, Refills 0, Maintenance, for pain, 03/16/20 13:35:00 EST, Tablet Start Date: 03/16/20 Status: Orderedaspirin 81 mg oral delayed release tablet 81 mg, 1, tablet, By Mouth, Daily, # 30 tablet, Refills 0, Tot. Refills 0, Maintenance, 03/22/21 8:50:00 EST, Route to Pharmacy Electronically, [facility]/pharmacy #[id number], Partial fill upon patient request if the prescription is for a schedule II opioid drug.... Start Date: 03/22/21 Stop Date: 04/21/21 Status: Orderedcyanocobalamin 100 mcg oral tablet 100 mcg, 1, tablet, By Mouth, Daily, # 30 tablet, Refills 0, Tot. Refills 0, Maintenance, 12/14/20 9:12:00 EDT, Route to Pharmacy Electronically, [facility]/pharmacy #[id number], Partial fill upon patient request [...] 12/14/20 9:12:00 EDT, Route to Pharmacy Electronically, [facility]/pharmacy #[id number], Partial fill upon patient request ifthe prescription is for a schedule II opioid drug... Start Date: 12/14/20 Stop Date: 01/13/21 Status: Orderedgabapentin 100 mg oral capsule 100 mg, 1, capsule, By Mouth, Daily, # 90 capsule, Refills 0, Maintenance, 03/16/20 13:36:00 EST Start Date: 03/16/20 Status: OrderedHumalog 100 u/ml subcutaneous injection 2 to 12 units, Subcutaneous Injection, 3 times a day before meals, 2 units for blood sugars between 100 to 150, 4 units for 151 to 200, 6 units for 201 to250, 8 units for 252 to 300, 10 units for 301 to 350, 12 units for 351 to 400 Start Date: 11/26/16 Status: OrderedLantus Solostar Pen 100 units/mL subcutaneous solution = 10 units, Subcutaneous Injection, Daily at bedtime, 0 Refills, Maintenance, 11/26/16 17:07:29 EDT Start Date: 11/26/16 Status: OrderedProtonix 40 mg oral delayed release tablet 1 tablet = 40 mg, By Mouth, Daily, # 30 tablet, 0 Refills, Maintenance, 03/22/21 8:50:00 EST, EC Tablet, 173, cm, 03/22/21 8:09:00 EST, Height, 76.4, kg, 03/20/21 1:42:00 EDT, Dry Weight Start Date: 03/22/21 Stop Date: 04/21/21 Status: OrderedReglan 10 mg oral tablet 1 tablet = 10 mg, By Mouth, 3 times a day, PRN Nausea & Vomiting, for 30 days, # 30 tablet, 5 Refills, Acute 09/18/21 8:48:00 EDT, 03/22/21 8:48:00 EST, [facility]/pharmacy #[id number], Partial fill upon patient request if the prescription is for a schedule II opi... Start Date: 03/22/21 Stop Date: 09/18/21 Status: OrderedZofran 4 mg oral tablet 1 tablet = 4 mg, By Mouth, Every 8 hours, PRN as needed for nausea/vomiting, # 6 tablet, 0 Refills, Maintenance, 03/19/21 18:00:00 EDT, Tablet, [facility]/pharmacy #[id number], Partial fill upon patient request if the prescription is for a schedule II opioid drug.... Start Date: 03/19/21 Status: Ordered Problem List Condition Effective Dates Status Health Status Informant Anemia(Confirmed) Active Anxiety(Confirmed) Active Diabetes mellitus(Confirmed) 2000 Active Gastroparesis due to DM(Confirmed) 02/11/12 Active Hypertension(Confirmed) Active Intractable nausea and Active vomiting(Confirmed) Nausea and vomiting(Confirmed) Active Vomiting(Confirmed) Active Social History Social History Type Response Smoking Status Never smoker entered on: 02/19/16 Sex
--- OUTSIDE RECORDS SUMMARY | 2022-02-26 16:13 | XMS_ITS | Continuity of Care Document ---
:1985 Author Organization [facility] Address [address] [place] [address]- Care Team Providers Name Role Phone Dariusz Vilchis Primary Care Physician Encounter [facility] Date(s): 11/11/21 - 11/12/[address] [id number] Discharge Disposition: A-D/C Home Attending Physician: Ke BAEZ, Giuseppe Admitting Physician: Jennifer BAEZ, Ran Referring Physician: Not on Staff, Referring MD Allergies, Adverse Reactions, Alerts Substance Reaction Severity Status Morphine Sulfate1, 2 Active raspberry HIVES,RASH Active 1Tolerates Tylenol #4, [id number] QI SPECIALIST, 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 #3 Immunizations Given [...] tetanus/diphtheria/pertussis, acel(Tdap) 02/15/11 Recorde d tetanus/diphtheria/pertussis, acel(Tdap)3 8/4/10 Given tetanus-diphtheria toxoids (Td) 07/27/00 Recorded tetanus-diphtheria [...] MANUFACTURE BIOMEDICAL INFO SHEET GIVEN GIVEN W/O [id number] Note: GIVEN W/O INCIDENT INFO SHEET GIVEN Medications cyanocobalamin 100 mcg oral tablet 100 mcg, 1, tablet, By Mouth, Daily, # 30 tablet, Refills 0, Tot. Refills 0, Maintenance, 12/14/20 9:12:00 EDT, Route to Pharmacy Electronically, [facility]/pharmacy #[id number], Partial fill upon patient request if the prescription is for a schedule II opioid charmaine... Start Date: 12/14/20 Status: Orderedferrous sulfate 325 mg oral enteric coated tablet 325 mg, 1, tablet, By Mouth, Daily, # 30 tablet, Refills 0, Tot. Refills 0, Maintenance, 12/14/20 9:12:00 EDT, Route to Pharmacy Electronically, [facility]/pharmacy #[id number], Partial fill upon patient request ifthe [...] Start Date: 03/22/21 Stop Date: 04/21/21 Status: OrderedZofran 4 mg oral tablet 1 tablet = 4 mg, By Mouth, Every 8 hours, PRN as needed for nausea/vomiting, # 6 tablet, 0 Refills, Maintenance, 03/19/21 18:00:00 EDT, Tablet, [id number], Partial fill upon patient request if the prescription is for a schedule II opioid drug.... Start Date: 03/19/21 Status: Ordered Problem List Condition Effective Dates Status Health Status Informant Anemia(Confirmed) Active Anxiety(Confirmed) Active Diabetes mellitus(Confirmed) 2000 Active Gastroparesis due to DM(Confirmed) 02/11/12 Active Hypertension(Confirmed) Active Intractable nausea and Active vomiting(Confirmed) Nausea and vomiting(Confirmed) Active Vomiting(Confirmed) Active Vital Signs Most recent to oldest [Reference 1 2 3 Range]: Height 175 cm 175 cm 175 cm (11/12/21 11:10 AM) (11/12/21 7:43 AM) (11/11/21 3:55 PM) Weight 72.4 kg (11/11/21 2:34 AM) Oxygen Saturation [94-100 %] 99 % 100 % 100 % (11/12/21 11:10 AM) (11/12/21 7:43 AM) (11/12/21 4:00 AM) Pulse Rate [55-90 bpm] 95 bpm 76 bpm 69 bpm *H* (11/12/21 7:43 AM) (11/12/21 4:00 AM ) (11/12/21 11:10 AM) Body Mass Index [18.5-24.99] 23.64 (11/11/21 2:34 AM) Blood Pressure [90-138/55-84 mm 138/80 mm Hg 129/71 mm Hg 117/59 mm Hg Hg] (11/12/21 11:10 AM) (11/12/21 7:43 AM) (11/12/21 4:00 AM) Respiratory Rate [16-30 br/min] 18 br/min 16 br/min 18 br/min (11/12/21 11:10 AM) (11/12/21 7:43 AM) (11/12/21 4:00 AM) Temperature [96.8-100.4 DegF] 98.4 DegF 98.4 DegF 98 .4 DegF (11/12/21 11:10 AM) (11/12/21 7:43 AM) (11/12/21 4:00 AM) Mode of Delivery (Oxygen) Room air Room air Room a ir (11/12/21 11:10 AM) (11/12/21 7:43 AM) (11/12/21 4:00 AM) Blood pressure sites Arm, right Arm, right Arm, right (11/12/21 11:10 AM) (11/12/21 7:43 AM) (11/12/21 4:00 AM) Temperature Route Oral Oral Oral (11/12/21 11:10 AM) (11/12/21 7:43 AM) (11/12/21 4:00 AM) Dry Weight 72.4 kg (11/11/21 2:34 AM) Weight Obtained Via Bed scale (11/11/21 2:34 AM) Dry Weight Obtained Via Bed scale (11/11/21 2:34 AM) Social History Social History Type Response Smoking Status Never smoker entered on: 02/19/16 Sex
--- OUTSIDE RECORDS SUMMARY | 2022-02-26 16:13 | XMS_ITS | Continuity of Care Document ---
:1985 Author Organization [facility] Address [address] [place] [address]- Care Team Providers Name Role Phone Arnol BAEZ, Asma Primary Care Physician Encounter [facility] Date(s): 04/29/19 - 04/29/[address] [address] [facility] Discharge Disposition: A-D/C Home Attending Physician: Brooke Jones MD Admitting Physician: Brooke Jones MD Referring Physician: Not on Staff, Referring MD Allergies, Adverse Reactions, Alerts Substance Reaction Severity Status raspberry HIVES,RASH Active Morphine Sulfate Active Immunizations Given and Recorded Vaccine Date Status Refusal Reason influenza virus vaccine, inactivated 03/13/16 Given influenza virus vaccine, inactivated1 01/14/12 Given influenza virus vaccine, inactivated2 05/27/10 Given tetanus/diphtheria/pertussis, acel(Tdap)3 12/16/09 Given 1Admin Note: Pt received vaccine at PCP Aida Carroll's office.2Admin Note: MANUFACTURE BIOMEDICAL INFO SHEET GIVEN GIVEN W/O [id number] Note: GIVEN W/O INCIDENT INFO SHEET GIVEN Medications CeleBREX 100 mg oral capsule 1 capsule = 100 mg, By Mouth, 2 times a day, # 10 capsule, 0 Refills, Maintenance, 02/25/19 14:04:54EDT, Capsule Start Date: 02/25/19 Status: OrderedHumalog 100 u/ml subcutaneous injection = [...] NEEDED FOR ANXIETY Start Date: 11/26/16 Status: OrderedZofran ODT 4 mg oral tablet, disintegrating 1 tablet = 4 mg, By Mouth, Every 6 hours, PRN Nausea & Vomiting, # 10 tablet, 0 Refills, Maintenance, 12/12/18 3:25:10 EDT, Tablet Start Date: 12/12/18 Status: OrderedZofran ODT 4 mg oral tablet, disintegrating 1 tablet = 4 mg, By Mouth, Every 4 hours, PRN Vomiting, # 12 tablet, 0 Refills, Maintenance, 11/21/17 12:49:46 EDT Start Date: 11/21/17 Status: OrderedZofran ODT 4 mg oral tablet, disintegrating 1 tablet = 4 mg, By Mouth, Every 6 hours, PRN Nausea & Vomiting, # 20 tablet, 0 Refills, Maintenance, 01/09/19 23:33:32 EDT Start Date: 01/09/19 Stop Date: 01/14/19 Status: OrderedZofran ODT 4 mg oral tablet, [...] DM(Confirmed) 02/11/12 Active Hypertension(Confirmed) Active Vomiting(Confirmed) Active Vital Signs Most recent to oldest 1 2 3 [Reference Range]: Height 173 cm (04/29/19 3:24 AM) Weight 80 kg (04/29/19 3:24 AM) Oxygen Saturation [94-100 %] 99 % 100 % 100 % (04/29/19 7:00 AM) (04/29/19 5:44 AM) (04/29/19 4:43 AM) Pulse Rate [55-90 bpm] 81 bpm 97 bpm 82 bpm (04/29/19 7:00 AM) *H* (04/29/19 5:4 4 AM) (04/29/19 6:26 AM) Blood Pressure [90-138/55-84 135/89 mm Hg 165/92 mm Hg 135 /72 mm Hg mm Hg] (04/29/19 7:00 AM) *H* (04/29/19 5:4 4 AM) (04/29/19 6:26 AM) Respiratory Rate [16-30 18 br/min 26 br/min 18 br/mi n br/min] (04/29/19 7:00 AM) (04/29/19 6:26 AM) (04/29/19 5:44 AM) Temperature [96.8-100.4 97.7 DegF DegF] (04/29/19 3:24 AM) Mode of Delivery (Oxygen) Room air Room air Room a ir (04/29/19 7:00 AM) (04/29/19 5:44 AM) (04/29/19 4:43 AM) Blood pressure sites Arm, left Arm, left Arm, left (04/29/19 7:00 AM) (04/29/19 5:44 AM) (04/29/19 4:43 AM) Temperature Route Oral (04/29/19 3:24 AM) Dry Weight 80 kg (04/29/19 3:24 AM) Social History Social History Type Response Smoking Status Never smoker entered on: 02/19/16 Sex
--- OUTSIDE RECORDS SUMMARY | 2022-02-26 16:13 | XMS_ITS | Continuity of Care Document ---
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
--- OUTSIDE RECORDS SUMMARY | 2022-02-26 16:13 | XMS_ITS | Continuity of Care Document ---
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 Refills 0, Maintenance, 12/14/20 9:12:00 EDT, Route to Pharmacy Electronically, [facility]/pharmacy #[id number], Partial fill upon patient request if the prescription is for a schedule II opioid charmaine... Start Date: 12/14/20 Status: OrderedDilaudid Inj 1 mg, Injection, IV Push Slowly, Every 2 hours, PRN for Pain , Severe, STAT, 11/10/21 20:11:00 EDT Start Date: 11/10/21 Stop Date: 11/11/21 Status: Discontinuedferrous sulfate 325 mg oral enteric coated tablet 325 mg, 1, tablet, By Mouth, Daily, # 30 tablet, Refills 0, Tot. Refills 0, Maintenance, 12/14/20 9:12:00 EDT, Route to Pharmacy Electronically, [facility]/pharmacy #[id number], Partial fill upon patient request ifthe prescription [...] 0 Refills, Maintenance, 03/19/21 18:00:00 EDT, Tablet, [facility]/pharmacy #[id number], Partial fill upon patient request if the [...] oldest 1 2 3 [Reference Range]: Height 175 cm 175 cm 175 cm (11/10/21 11:45 PM) (11/10/21 10:38 PM) (11/10/21 1 0:34 PM) Weight 73 kg 73 kg 73 kg (11/10/21 10:38 PM) (11/10/21 10:34 PM) (11/10/21 9 :52 PM) Oxygen Saturation [94-100 %] 100 % 100 % 100 % (11/10/21 11:45 PM) (11/10/21 10:38 PM) (11/10/21 1 0:34 PM) Pulse Rate [55-90 bpm] 75 bpm 72 bpm 74 bpm (11/10/21 11:45 PM) (11/10/21 10:38 PM) (11/10/21 1 0:34 PM) Body Mass Index [18.5-24.99] 23.84 23.84 23. 84 (11/10/21 10:38 PM) (11/10/21 10:34 PM) (11/10/21 9 :52 PM) Blood Pressure [90-138/55-84 122/77 mm Hg 106/71 mm Hg 104 /67 mm Hg mm Hg] (11/10/21 11:45 PM) (11/10/21 10:38 PM) (11/10/21 1 0:34 PM) Respiratory Rate [16-30 16 br/min 18 br/min 14 br/mi n br/min] (11/10/21 11:45 PM) (11/10/21 11:01 PM) *L* (11/10/21 10:38 P M) Temperature [96.8-100.4 97.9 DegF 98 DegF 98.3 Deg F DegF] (11/10/21 10:34 PM) (11/10/21 8:52 PM) (11/10/21 6: 19 PM) Mode of Delivery (Oxygen) Room air Room air Room a ir (11/10/21 11:45 PM) (11/10/21 10:38 PM) (11/10/21 1 0:34 PM) Blood pressure sites Arm, left Arm, left Arm, left (11/10/21 11:45 PM) (11/10/21 10:34 PM) (11/10/21 9 :52 PM) Temperature Route Oral Oral (11/10/21 10:34 PM) (11/10/21 6:19 PM) Dry Weight 73 kg 73 kg 73 kg (11/10/21 10:38 PM) (11/10/21 10:34 PM) (11/10/21 9 :52 PM) Social History Social History Type Response Smoking Status Never smoker entered on: 02/19/16 Sex
--- OUTSIDE RECORDS SUMMARY | 2022-02-26 16:13 | XMS_ITS | Continuity of Care Document ---
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, 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 #3 Immunizations Given and Recorded Vaccine Date Status Refusal Reason influenza virus vaccine, inactivated 02/12/20 Given influenza virus vaccine, inactivated 03/13/16 Given influenza virus vaccine, inactivated1 01/14/12 Given influenza virus vaccine, inactivated2 05/27/10 Given tetanus/diphtheria/pertussis, acel(Tdap)3 12/16/09 Given 1Admin Note: Pt received vaccine at PCP Aida Carroll's office.2Admin Note: MANUFACTURE BIOMEDICAL INFO SHEET GIVEN GIVEN W/O [id number] Note: GIVEN W/O INCIDENT INFO SHEET GIVEN Medications acetaminophen-codeine 300 mg-30 mg oral tablet 1, tablet, By Mouth, Every 4 hours, PRN, Refills 0, Maintenance, for pain, 03/16/20 13:35:00 EST, Tablet Start Date: 03/16/20 Status: Ordereddicyclomine 10 mg oral capsule TK 1 C PO TID Start Date: 03/16/20 Status: Orderederythromycin ethylsuccinate 200 mg/5 ml oral suspension 6 mL = 240 mg, By Mouth, Every 8 hours, for 10 days, # 180 mL, 0 Refills, Acute 11/21/20 12:05:00 EDT, 11/11/20 12:05:00 EDT, Suspension, [facility] #[id number], Partial fill upon patient request if the prescription is for a schedule II opioid drJimena. Start Date: 11/11/20 Stop Date: 11/21/20 Status: Orderederythromycin ethylsuccinate 200 mg/5 ml oral suspension 6 mL = 240 mg, By Mouth, Every 8 hours, for 10 days, # 180 mL, 0 Refills, Acute 12/01/20 12:05:00 EDT, 11/21/20 12:05:00 EDT, Suspension, [facility]/pharmacy #[id number], Partial fill upon patient request if the prescription is for a schedule II opioid drug., 173,... Start Date: 11/21/20 Stop Date: 12/01/20 Status: Orderedfolic acid 1 mg oral tablet [...] NEEDED FOR ANXIETY Start Date: 11/26/16 Status: Orderedmeloxicam 15 mg oral tablet 1 tablet = 15 mg, By Mouth, Daily, # 30 tablet, 0 Refills, Maintenance, 11/10/20 15:33:00 EDT, Tablet, Partial fill upon patient request if the prescription is for a schedule II opioid drug. Start Date: 11/10/20 Status: OrderedPAIN RELIEVER R/S 325MG TABS PAIN [...] Exam Date Time Procedure Performing Provider Status 11/10/20 8:08 PM Abdomen Comp Inc Decub and/or Mary He ; Auth (Verified) Erect Notes:(Abdomen Comp Inc Decub and/or Erect) Reason For Exam: Nausea/Vomiting RESULT: Abdomen Comp Inc Decub and/or Erect Supine and upright views of the abdomen and pelvis dated November 10, 2020. Comparison films are from May 23, 2020. HISTORY: Nausea and vomiting. FINDINGS: This examination shows air in nondilated loops of large and small bowel. An air-fluid level is noted in the stomach. A stimulator is present over the left upper quadrant with leads extending to the region of the EG junction. No free air is identified. No mass or suspicious calcification is demonstrated. Visualized osseous structures are unremarkable. IMPRESSION: No evidence of obstruction or free air. Stable gastric stimulator. Examination 74909. Thank you for allowing me to participate in the care of this patient. WSN: [id number] Ordering Physician: Isiah Conrad Dictated By: Jesu Ha MD Dictated Date/Time: 11/10/20 8:34 pm Reviewed By: Jesu Ha MD Signed By: Jesu Ha MD Signed Date/Time: 11/10/20 8:34 pm Transcribed By: CAROLE Transcribed Date/Time: 11/10/20 8:32 pm Exam Date Time Procedure Performing Provider Status 11/09/20 9:55 PM Chest Portable Grodzicka , Alma Rosa; Auth (Verifie d) Notes:(Chest Portable) Reason For Exam: Shortness of BreathRESULT: Chest Portable AP supine portable chest dated November 09, 2020. Comparison films are from December 29, 2017. HISTORY: Shortness of breath. FINDINGS: The cardiac silhouette is within normal limits for size. Hilar and mediastinal structures are unremarkable. No airspace infiltrate or pleural effusion is identified. Visualized osseous structures are within normal limits. IMPRESSION: No evidence of acute pulmonary disease. Examination [id number]. Thank you for allowing me to participate in the care of this patient. WSN: [id number] Ordering Physician: Will Ring Dictated By: Jesu Ha MD Dictated Date/Time: 11/09/20 10:00 p Reviewed By: Jesu Ha MD Signed By: Jesu Ha MD Signed Date/Time: 11/09/20 10:00 pm Transcribed By: CAROLE Transcribed Date/Time: 11/09/20 10:00 pm Vital Signs Most recent to oldest 1 2 3 [Reference Range]: Height 173 cm 173 cm 173 cm (11/11/20 5:34 AM) (11/10/20 7:27 PM) (11/10/20 5:1 3 AM) Weight 76 kg 76 kg 76 kg (11/10/20 5:13 AM) (11/10/20 4:31 AM) (11/10/20 3:4 8 AM) Oxygen Saturation [94-100 95 % 96 % 99 % %] (11/11/20 5:34 AM) (11/10/20 7:27 PM) (11/10/20 5:0 0 PM) Pulse Rate [55-90 bpm] 98 bpm 101 bpm 94 bpm *H* *H* *H* (11/11/20 5:34 AM) (11/10/20 7:27 PM) (11/10/20 6:0 0 PM) Body Mass Index 25.39 25.39 25.39 [18.5-24.99] *H* *H* *H* (11/10/20 5:13 AM) (11/10/20 4:31 AM) (11/10/20 3:4 8 AM) Blood Pressure 120/84 mm Hg 145/86 mm Hg 156/89 mm Hg [90-138/55-84 mm Hg] (11/11/20 5:34 AM) *H* *H* (11/10/20 7:27 PM) (11/10/20 6:00 PM) Respiratory Rate [16-30 16 br/min 16 br/min 16 br/mi n br/min] (11/11/20 5:34 AM) (11/10/20 7:27 PM) (11/10/20 5:0 0 PM) Temperature [96.8-100.4 98.7 DegF 99.7 DegF 98.0 Deg F DegF] (11/11/20 5:34 AM) (11/10/20 7:27 PM) (11/10/20 5:0 0 PM) Liters per Minute 0 L/min 0 L/min 0 L/min (11/10/20 5:13 AM) (11/10/20 3:48 AM) (11/10/20 3:0 4 AM) Mode of Delivery (Oxygen) Room air Room air Room a ir (11/11/20 5:34 AM) (11/10/20 7:27 PM) (11/10/20 5:0 0 PM) Blood pressure sites Arm, left Arm, left Arm, right (11/11/20 5:34 AM) (11/10/20 7:27 PM) (11/10/20 6:0 0 PM) Temperature Route Oral Oral Oral (11/11/20 5:34 AM) (11/10/20 7:27 PM) (11/10/20 5:0 0 PM) Dry Weight 76 kg 76 kg 76 kg (11/10/20 5:13 AM) (11/10/20 4:31 AM) (11/10/20 3:4 8 AM) Weight Obtained Via Patient/family stated (11/09/20 9:35 PM) Dry Weight Obtained Via Patient/family stated (11/09/20 9:35 PM) Social History Social History Type Response Smoking Status Never smoker entered on: 02/19/16 Sex
--- OUTSIDE RECORDS SUMMARY | 2022-02-26 16:13 | XMS_ITS | Continuity of Care Document ---
:1985 Author Organization [facility] Address [address] [facility] [address] [facility], [address] [place] [address]- Care Team Providers Name Role Phone Arnol BAEZ, Asma Primary Care Physician En[place] [facility] [place] Date(s): 01/09/20 - 02/08/20 [facility] [address] [place] [address] [facility] Attending Physician: Winnie Freitas Admitting Physician: Winnie Freitas Referring Physician: AdmtrWinnie Allergies, Adverse Reactions, Alerts Substance Reaction Severity Status raspberry HIVES,RASH Active Morphine Sulfate Active Immunizations Given and Recorded Vaccine Date Status Refusal Reason influenza virus vaccine, inactivated 03/13/16 Given influenza virus vaccine, inactivated1 01/14/12 Given influenza virus vaccine, inactivated2 05/27/10 Given tetanus/diphtheria/pertussis, acel(Tdap)3 12/16/09 Given 1Admin Note: Pt received vaccine at PCP Aida Carroll's office.2Admin Note: MANUFACTURE BIOMEDICAL INFO SHEET GIVEN GIVEN W/O [id number] Note: GIVEN W/O INCIDENT INFO SHEET GIVEN [...] NEEDED FOR ANXIETY Start Date: 11/26/16 Status: Orderedpromethazine 25 mg oral tablet 1 tablet = 25 mg, By Mouth, Every 4 hours, PRN for nausea/vomiting, # 60 tablet, 0 Refills, Maintenance, 05/08/19 4:26:00 EST, Tablet, [facility], 173, cm, 05/07/19 22:00:00 EST, Height, 79.5, kg, 05/07/19 22:00:00 EST, Dry Weight Start Date: 05/08/19 Status: OrderedZofran ODT 4 mg oral tablet, [...]
--- OUTSIDE RECORDS SUMMARY | 2022-02-26 16:13 | XMS_ITS | Continuity of Care Document ---
:1985 Author Organization [facility] Address [address] [place] [address]- Care Team Providers Name Role Phone Arnol BAEZ, Asma Primary Care Physician Encounter [facility] Date(s): 12/12/20 - 12/14/[address] [address]- Discharge Disposition: A-D/C Home Attending Physician: Erlin Scanlon DO Admitting Physician: Kurt BAEZ, Erica Mujica Referring Physician: Adán Leal MD Allergies, Adverse Reactions, Alerts Substance Reaction Severity Status Morphine Sulfate1 Active raspberry HIVES,RASH Active 1per HOUSE WIRER, 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 #3 Immunizations Given [...] toxoids (Td) 07/27/00 Recorded tetanus-diphtheria toxoids (Td) 2/6/87 Recorded tetanus-diphtheria toxoids (Td) 84 Recorded Measles/Mumps/Rubella Virus Vaccine 09/13/94 Recorded Measles/Mumps/Rubella Virus Vaccine 10/08/85 Recorded 1Admin Note: Pt received vaccine at PCP Aida Carroll's office.2Admin Note: MANUFACTURE BIOMEDICAL INFO SHEET GIVEN GIVEN W/O [id number] Note: GIVEN W/O INCIDENT INFO SHEET GIVEN Medications acetaminophen-codeine 300 mg-30 mg oral tablet 1, tablet, By Mouth, Every 4 hours, PRN, Refills 0, Maintenance, for pain, 03/16/20 13:35:00 EST, Tablet Start Date: 03/16/20 Status: Orderedacetaminophen-codeine 300 mg-30 mg oral tablet 1 tablet, Tablet, By Mouth, Every 6 hours, PRN for Pain , Moderate, Routine, 12/12/20 16:44:00 EDT Start Date: 12/12/20 Stop Date: 12/14/20 Status: Discontinuedcyanocobalamin 100 mcg oral tablet 100 mcg, 1, tablet, By Mouth, Daily, # 30 tablet, Refills 0, Tot. Refills 0, Maintenance, 12/14/20 9:12:00 EDT, Route to Pharmacy Electronically, [facility]/pharmacy #[id number], Partial fill upon patient request if [...] 12/14/20 9:12:00 EDT, Route to Pharmacy Electronically, [facility]/pharmacy #[id number], Partial fill upon patient request ifthe prescription is for a schedule II opioid drug... Start Date: 12/14/20 Stop Date: 01/13/21 Status: Orderedfolic acid 1 mg oral tablet 1 mg, 1, tablet, By Mouth, Daily, # 30 tablet, Refills 0, Maintenance, 03/16/20 13:35:00 EST Start Date: 03/16/20 Status: Orderedgabapentin 100 mg oral capsule 100 mg, Capsule, By Mouth, 12/14/20 9:00:00 EDT Start Date: 12/14/20 Stop Date: 12/14/20 Status: Completedgabapentin 100 mg oral capsule 100 mg, 1, [...] NEEDED FOR ANXIETY Start Date: 11/26/16 Status: Orderedondansetron 4 mg oral tablet, disintegrating = 4 mg, By Mouth, 3 times a day, PRN Nausea & Vomiting, for 5 days, # 15 tablet, 0 Refills, Acute 12/19/20 9:08:00 EDT, 12/14/20 9:08:00 EDT, Tablet, [facility]/pharmacy #[id number], Partial fill upon patient request if the prescription is for a schedule II opioid... Start Date: 12/14/20 Stop Date: 12/19/20 Status: OrderedPAIN RELIEVER R/S 325MG TABS PAIN [...] oldest 1 2 3 [Reference Range]: Height 172 cm 172 cm 172 cm (12/14/20 5:12 AM) (12/13/20 8:11 PM) (12/13/20 2:36 P M) Weight 74.2 kg 70 kg 70 kg (12/12/20 3:29 PM) (12/12/20 2:58 PM) (12/12/20 8:3 6 AM) Oxygen Saturation [94-100 %] 97 % 98 % 100 % (12/14/20 5:12 AM) (12/13/20 8:11 PM) (12/13/20 2:36 P M) Pulse Rate [55-90 bpm] 89 bpm 86 bpm 81 bpm (12/14/20 5:12 AM) (12/13/20 8:11 PM) (12/13/20 2:36 P M) Body Mass Index [18.5-24.99] 25.08 23.66 23. 66 *H* (12/12/20 2:58 PM) (12/12/20 8:35 AM) (12/12/20 3:29 PM) Blood Pressure [90-138/55-84 mm 147/85 mm Hg 123/80 mm Hg 119/75 mm Hg Hg] *H* (12/13/20 8:11 PM) (12/13/20 2:36 PM ) (12/14/20 5:12 AM) Respiratory Rate [16-30 br/min] 18 br/min 20 br/min 20 br/min (12/14/20 8:01 AM) (12/14/20 7:09 AM) (12/14/20 5:14 A M) Temperature [96.8-100.4 DegF] 98.5 DegF 98.5 DegF 97 .9 DegF (12/14/20 5:12 AM) (12/13/20 8:11 PM) (12/13/20 2:36 P M) Mode of Delivery (Oxygen) Room air Room air Room a ir (12/14/20 5:12 AM) (12/13/20 8:11 PM) (12/13/20 2:36 P M) Blood pressure sites Arm, right Arm, left Arm, right (12/14/20 5:12 AM) (12/13/20 8:11 PM) (12/13/20 2:36 P M) Temperature Route Oral Oral Oral (12/14/20 5:12 AM) (12/13/20 8:11 PM) (12/13/20 2:36 P M) Dry Weight 74.2 kg 70 kg 70 kg (12/12/20 3:29 PM) (12/12/20 2:58 PM) (12/12/20 8:3 6 AM) Weight Obtained Via Bed scale (12/12/20 3:29 PM) Social History Social History Type Response Smoking Status Never smoker entered on: 02/19/16 Sex
--- OUTSIDE RECORDS SUMMARY | 2022-02-26 16:13 | XMS_ITS | Continuity of Care Document ---
:1985 Author Organization [facility] Address [address] [place] [address]- Care Team Providers Name Role Phone Arnol BAEZ, Asma Primary Care Physician Encounter [facility] Date(s): 06/18/20 - 06/18/[address] [address]- Discharge Disposition: A-D/C Home Attending Physician: Mel BAEZ, Adán Morillo Admitting Physician: Adán Leal MD Referring Physician: Not on Staff, Referring MD Allergies, Adverse Reactions, Alerts Substance Reaction Severity Status Morphine Sulfate1 Active raspberry HIVES,RASH Active 1per CAR CHANGER, 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 #3 Immunizations Given and Recorded Vaccine Date Status Refusal Reason influenza virus vaccine, inactivated 02/12/20 Given influenza virus vaccine, inactivated 03/13/16 Given influenza virus vaccine, inactivated1 01/14/12 Given influenza virus vaccine, inactivated2 05/27/10 Given tetanus/diphtheria/pertussis, acel(Tdap)3 12/16/09 Given 1Admin Note: Pt received vaccine at PCP Aida Carroll's office.2Admin Note: MANUFACTURE BIOMEDICAL INFO SHEET GIVEN GIVEN W/O [id number] Note: GIVEN W/O INCIDENT INFO SHEET GIVEN Medications acetaminophen-codeine 300 mg-30 mg oral tablet 1, tablet, By Mouth, Every 4 hours, PRN, Refills 0, Maintenance, for pain, 03/16/20 13:35:00 EST, Tablet Start Date: 03/16/20 Status: Ordereddicyclomine 10 mg oral capsule TK 1 C PO TID Start Date: 03/16/20 Status: OrderedFioricet oral capsule 2 capsule, By Mouth, Every 8 hours, PRN as needed, for 7 days, not to exceed 6 capsules/day, # 20 capsule, 0 Refills, Acute 06/25/20 13:01:00 EST, 06/18/20 13:01:00 EST, Capsule, [facility] #[id number], Partial fill upon patient request if the pr... Start Date: 06/18/20 Stop Date: 06/25/20 Status: Orderedfolic acid 1 mg oral tablet [...] NEEDED FOR ANXIETY Start Date: 11/26/16 Status: Orderedmethocarbamol 750 mg oral tablet 2 tablet = 1,500 mg, By Mouth, 3 times a day, for 7 days, # 42 tablet, 0 Refills, Acute 06/25/20 13:01:00 EST, 06/18/20 13:01:00 EST, Tablet, [facility] #[id number], Partial fill upon patient request if the prescription is for a schedule II opioi... Start Date: 06/18/20 Stop Date: 06/25/20 Status: OrderedPAIN RELIEVER R/S 325MG TABS PAIN [...] Most recent to oldest [Reference Range]: 1 2 Height 173 cm 173 cm (06/18/20 12:23 PM) (06/18/20 11:14 AM) Weight 76 kg (06/18/20 11:14 AM) Oxygen Saturation [94-100 %] 95 % 100 % (06/18/20 12:23 PM) (06/18/20 11:14 AM) Pulse Rate [55-90 bpm] 99 bpm 112 bpm *H* *H* (06/18/20 12:23 PM) (06/18/20 11:14 AM) Blood Pressure [90-138/55-84 mm Hg] 109/60 mm Hg 124/ 86 mm Hg (06/18/20 12:23 PM) (06/18/20 11:14 AM) Respiratory Rate [16-30 br/min] 16 br/min 24 br/mi n (06/18/20 12:23 PM) (06/18/20 11:14 AM) Temperature [96.8-100.4 DegF] 98.4 DegF (06/18/20 11:14 AM) Mode of Delivery (Oxygen) Room air Room air (06/18/20 12:23 PM) (06/18/20 11:14 AM) Blood pressure sites Arm, left Arm, left (06/18/20 12:23 PM) (06/18/20 11:14 AM) Temperature Route Oral (06/18/20 11:14 AM) Dry Weight 76 kg (06/18/20 11:14 AM) Weight Obtained Via Patient/family stated (06/18/20 11:14 AM) Dry Weight Obtained Via Patient/family stated (06/18/20 11:14 AM) Social History Social History Type Response Smoking Status Never smoker entered on: 02/19/16 Sex
--- OUTSIDE RECORDS SUMMARY | 2022-02-26 16:13 | XMS_ITS | Continuity of Care Document ---
:1985 Author Organization [facility] Address [address] [place] [address]- Care Team Providers Name Role Phone Arnol BAEZ, Rebecca Primary Care Physician Encounter [facility] Date(s): 04/29/19 - 06/06/19 [facility] [place] [address] [place] [address]- [facility] Attending Physician: Casi BAEZ, Dionne Referring Physician: Rebecca Ambrose MD Allergies, Adverse Reactions, Alerts Substance Reaction [...] MANUFACTURE BIOMEDICAL INFO SHEET GIVEN GIVEN W/O [id number] Note: GIVEN W/O INCIDENT INFO SHEET GIVEN [...] 0 Refills, Maintenance, 05/08/19 4:26:00 EST, Tablet, [facility], 173, cm, 05/07/19 22:00:00 [...]
--- OUTSIDE RECORDS SUMMARY | 2022-02-26 16:13 | XMS_ITS ---
:1985 Author Organization [facility] Address [address] [place] [address] Care Team Providers Name Role Phone Matt Ding Unavailable Unavailable PROBLEMS Unknown Problems ALLERGIES No Information ENCOUNTERS Encounter Location Date Diagnosis [facility] [address] Ja n, [address] [place] [address] [facility] [address], [address] [place] [address] [facility] [address] [place] [address] Jun, [id number] IMMUNIZATIONS No Known Immunizations SOCIAL HISTORY Never Assessed REASON FOR REFERRAL FUNCTIONAL STATUS PLAN OF CARE VITAL SIGNS MEDICATIONS Unknown Medications PROCEDURES Procedure Date Ordered Result Body Site UPPER GI ENDOSCOPY, BIOPSY Jun 28, 2016 RESULTS Name Result Date Reference Range GI BIOPSY 2016-06-28 G.I. BIOPSY BASIC METABOLIC PROFILE FAST 2016-06-28 NA 132 135-145 K 4.9 3.3-5.1 CL 106 96-108 CO2 17 22-29 ANION GAP 14 12-20 FASTING BLOOD SUGAR 171 60-99 BUN 25 9-16 CREATININE 2.65 0.5-1.4 ESTIMATED GFR 21 ESTIMATED CrCl 34.6 CALCIUM 8.0 8.4-10.2 MAGNESIUM 2016-06-28 MAGNESIUM 2.0 1.6-2.6 CBC w DIFF 2016-06-28 WBC 13.3 4.8-10.8 ABSOLUTE NEUTROPHIL COUNT 10.3 2.2-7. 9 RBC 2.92 4.20-5.50 HEMOGLOBIN 8.0 12.0-16.0 HEMATOCRIT 24.6 37-47 MCV 84.4 80-98 MCH 27.5 27.0-33.0 MCHC 32.6 31.0-35.0 PLATELET COUNT 361 160-400 RDW 15.4 11.0-16.0 NEUTROPHILS 77.5 45-73 LYMPHOCYTES 11.5 20-40 MONOCYTES 7.6 2-11 EOSINOPHILS 2.9 0-4 BASOPHILS 0.6 0-2 BASIC METABOLIC PROFILE FAST 2012-08-14 NA 140 135-145 K 3.7 3.3-5.1 CL 109 96-108 CO2 22 22-29 ANION GAP 13 12-20 FASTING BLOOD SUGAR 88 60-99 BUN 13 9-16 CREATININE 1.40 0.5-1.4 ESTIMATED GFR 45 ESTIMATED CrCl 65.3 CALCIUM 8.6 8.4-10.2 VITAMIN B12 AND FOLATE 2012-08-14 B12 231 200-900 FOLATE 16.6 > OR = 4.0 CBC w DIFF 2012-08-14 WBC 6.6 4.8-10.8 ABSOLUTE NEUTROPHIL COUNT 5.1 2.2-7. 9 RBC 3.15 4.20-5.50 HEMOGLOBIN 9.0 12.0-16.0 HEMATOCRIT 27.4 37-47 MCV 86.9 80-98 MCH 28.5 27.0-33.0 MCHC 32.8 31.0-35.0 PLATELET COUNT 290 160-400 RDW 13.3 11.0-16.0 NEUTROPHILS 77.3 45-73 LYMPHOCYTES 15.4 20-40 MONOCYTES 6.2 2-11 EOSINOPHILS 0.4 0-4 BASOPHILS 0.9 0-2 REASON FOR VISIT ABD PAIN AND ANEMIA , Pt left the office sick , patient presents today for abd pain and anemia , R/sOV - to sooner date, ABD PAIN AND ANEMIA , Upper GI bleed Insurance Providers [facility] Member Patient Patient Patient Patient Patient Subscriber Subscriber Subscriber Group Insurance Plan Plan Plan Plan ID Relationship Address Phone Name Date of ID Name Date of No Type Insurance Insurance Insurance Coverage to Subscriber Address Phone Name Dates Karena [phone] Karena self [place] 1985 [id number] [place] [id number] [place] [phone]
--- OUTSIDE RECORDS SUMMARY | 2022-02-26 16:13 | XMS_ITS | Continuity of Care Document ---
:1985 Author Organization [facility] Address [address] [place] [address]- Care Team Providers Name Role Phone Arnol BAEZ, Asma Primary Care Physician Encounter [facility] Date(s): 07/23/19 - 08/02/[facility] [address] [place] [address] Attending Physician: Winnie Freitas Admitting Physician: Winnie [...] MANUFACTURE BIOMEDICAL INFO SHEET GIVEN GIVEN W/O [id number] Note: GIVEN W/O INCIDENT INFO SHEET GIVEN [...] 0 Refills, Maintenance, 05/08/19 4:26:00 EST, Tablet, [facility], 173, cm, 05/07/19 22:00:00 EST, [...]
--- OUTSIDE RECORDS SUMMARY | 2022-02-26 16:13 | XMS_ITS | Continuity of Care Document ---
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 CHAR 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, 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 #3 Immunizations Given [...] Status Refusal Reason influenza virus vaccine, inactivated 03/13/21 Not Given Patient Refuses 1Admin Note: Pt received vaccine at PCP Aida Carroll's office.2Admin Note: MANUFACTURE BIOMEDICAL INFO SHEET GIVEN GIVEN W/O [id number] Note: GIVEN W/O INCIDENT INFO SHEET GIVEN Medications acetaminophen-codeine 300 mg-30 mg oral tablet 1, tablet, By Mouth, Every 4 hours, PRN, Refills 0, Maintenance, for pain, 03/16/20 13:35:00 EST, Tablet Start Date: 03/16/20 Status: Orderedcyanocobalamin 100 mcg oral tablet 100 mcg, 1, tablet, By Mouth, Daily, # 30 tablet, Refills 0, Tot. Refills 0, Maintenance, 12/14/20 9:12:00 EDT, Route to Pharmacy Electronically, [facility]/pharmacy #[id number], Partial fill upon patient request if [...] 12/14/20 9:12:00 EDT, Route to Pharmacy Electronically, [facility]/pharmacy #[id number], Partial fill upon patient request ifthe prescription is for a schedule II opioid drug... Start Date: 12/14/20 Stop Date: 01/13/21 Status: Orderedgabapentin 100 mg oral capsule 100 mg, 1, capsule, By Mouth, Daily, # 90 capsule, Refills 0, Maintenance, 03/16/20 13:36:00 EST Start Date: 03/16/20 Status: Orderedgabapentin 100 mg oral capsule 100 mg, Capsule, By Mouth, 03/14/21 9:00:00 EDT Start Date: 03/14/21 Stop Date: 03/14/21 Status: CompletedHumalog 100 u/ml subcutaneous injection = 14 units, INJECT 22 UNITS 4 TIMES A DAY Start Date: 11/26/16 Status: OrderedHYDROmorphone Inj 1 mg, Injection, IV Push Slowly, Every 4 hours, PRN for Pain , Severe, STAT, 03/12/21 1:12:00 EDT Start Date: 03/12/21 Stop Date: 03/14/21 Status: DiscontinuedLantus Solostar Pen 100 units/mL subcutaneous solution = 60 units, Subcutaneous Injection, Daily at bedtime, 0 Refills, Maintenance, 11/26/16 17:07:29 EDT Start Date: 11/26/16 Status: OrderedZofran 4 mg oral tablet 1 [...] Height 172 cm 172 cm 172 cm (03/14/21 4:44 AM) (03/13/21 9:07 PM) (03/13/21 1:38 PM) Weight 78.8 kg 69 kg 69 kg (03/12/21 12:49 AM) (03/11/21 11:29 PM) ( 1 8:03 PM) Oxygen Saturation [94-100 100 % 99 % 100 % %] (03/14/21 4:44 AM) (03/13/21 9:07 PM) (03/13/21 1:38 PM) Pulse Rate [55-90 bpm] 85 bpm 88 bpm 83 bpm (03/14/21 4:44 AM) (03/13/21 9:07 PM) (03/13/21 1:38 PM) Body Mass Index 26.64 23.32 23.32 [18.5-24.99] *H* (03/11/21 11:29 PM) (03/11/21 7: 53 PM) (03/12/21 12:49 AM) Blood Pressure 134/77 mm Hg 142/88 mm Hg 111/71 mm Hg [90-138/55-84 mm Hg] (03/14/21 4:44 AM) *H* ( 1 1:38 PM) (03/13/21 9:07 PM) Respiratory Rate [16-30 18 br/min 17 br/min 17 br/mi n br/min] (03/14/21 12:17 PM) (03/14/21 11:17 AM) ( 8:44 AM) Temperature [96.8-100.4 97.5 DegF 96.5 DegF 98.6 Deg F DegF] (03/14/21 4:44 AM) *L* (03/13/21 1:3 8 PM) (03/13/21 9:07 PM) Liters per Minute 2 L/min 2 L/min (03/11/21 7:56 PM) (03/11/21 7:53 PM) Mode of Delivery (Oxygen) Room air Room air Room a ir (03/14/21 4:44 AM) (03/13/21 9:07 PM) (03/13/21 1:38 PM) Blood pressure sites Arm, right Arm, right Arm, right (03/13/21 1:38 PM) (03/13/21 10:07 AM) (03/12/21 4:28 PM) Temperature Route Oral Oral Oral (03/13/21 1:38 PM) (03/13/21 10:07 AM) (03/12/21 4:28 PM) Dry Weight 78.8 kg 69 kg 69 kg (03/12/21 12:49 AM) (03/11/21 11:29 PM) ( 1 8:03 PM) Weight Obtained Via Standing scale Patient/family stated (03/12/21 12:49 AM) (03/11/21 7:53 PM) Dry Weight Obtained Via Patient/family stated (03/11/21 7:53 PM) Social History Social History Type Response Smoking Status Never smoker entered on: 02/19/16 Sex
--- OUTSIDE RECORDS SUMMARY | 2022-02-26 16:13 | XMS_ITS | Continuity of Care Document ---
:1985 Author Organization [facility] Address [address] [place] [address]- Care Team Providers Name Role Phone Arnol BAEZ, Rebecca Primary Care Physician Encounter [facility] Date(s): 05/13/19 - 08/22/19 [facility] [place] [address] [place] [address]- [facility] Attending Physician: Casi BAEZ, Dionne Referring Physician: [...] MANUFACTURE BIOMEDICAL INFO SHEET GIVEN GIVEN W/O [id number] Note: GIVEN W/O INCIDENT INFO SHEET GIVEN [...] 0 Refills, Maintenance, 05/08/19 4:26:00 EST, Tablet, [facility], 173, cm, 05/07/19 22:00:00 EST, [...]
--- OUTSIDE RECORDS SUMMARY | 2022-02-26 16:13 | XMS_ITS | Continuity of Care Document ---
:1985 Author Organization [facility] Address [address] [place] [address]- Care Team Providers Name Role Phone Arnol BAEZ, Asma Primary Care Physician Encounter [facility] Date(s): 05/07/19 - 05/08/[address] [address] [facility] Encounter Diagnosis Abdominal pain, acute (Final) - 05/08/19 Discharge Disposition: A-D/C Home Attending Physician: Catracho Ha DO Admitting Physician: Catracho Ha DO Referring Physician: Not on Staff, Referring MD [...] MANUFACTURE BIOMEDICAL INFO SHEET GIVEN GIVEN W/O [id number] Note: GIVEN W/O INCIDENT INFO SHEET GIVEN [...] 0 Refills, Maintenance, 05/08/19 4:26:00 EST, Tablet, [facility], 173, cm, 05/07/19 22:00:00 EST, Height, [...] [Reference Range]: 1 2 Height 173 cm (05/07/19 10:00 PM) Weight 79.5 kg (05/07/19 10:00 PM) Oxygen Saturation [94-100 %] 100 % 100 % (05/07/19 11:29 PM) (05/07/19 10:00 PM) Pulse Rate [55-90 bpm] 86 bpm 108 bpm (05/07/19 11:29 PM) *H* (05/07/19 10:00 PM) Blood Pressure [90-138/55-84 mm Hg] 124/69 mm Hg 135/ 8 mm Hg (05/07/19 11:29 PM) (05/07/19 10:00 PM) Respiratory Rate [16-30 br/min] 17 br/min 18 br/mi n (05/07/19 11:29 PM) (05/07/19 10:00 PM) Mode of Delivery (Oxygen) Room air Room air (05/07/19 11:29 PM) (05/07/19 10:00 PM) Blood pressure sites Arm, right Arm, right (05/07/19 11:29 PM) (05/07/19 10:00 PM) Dry Weight 79.5 kg (05/07/19 10:00 PM) Weight Obtained Via Standing scale (05/07/19 10:00 PM) Social History Social History Type Response Smoking Status Never smoker entered on: 02/19/16 Sex
--- OUTSIDE RECORDS SUMMARY | 2022-02-26 16:13 | XMS_ITS | Continuity of Care Document ---
:1985 Author Organization [facility] Address [address] [place] [address]- Care Team Providers Name Role Phone Arnol BAEZ, Asma Primary Care Physician Encounter [facility] Date(s): 11/15/20 - 11/15/[address] [address]- Discharge Disposition: A-D/C Home Attending Physician: José Luis Garcia MD Admitting Physician: José Luis Garcia MD Referring Physician: Not on Staff, Referring MD Allergies, Adverse Reactions, Alerts Substance Reaction Severity Status raspberry HIVES,RASH Active Morphine Sulfate1 Active 1per OPERATOR, 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 #3 Immunizations Given and Recorded Vaccine Date Status Refusal Reason influenza virus vaccine, inactivated 02/12/20 Given influenza virus vaccine, inactivated 03/13/16 Given influenza virus vaccine, inactivated1 01/14/12 Given influenza virus vaccine, inactivated2 05/27/10 Given tetanus/diphtheria/pertussis, acel(Tdap)3 12/16/09 Given 1Admin Note: Pt received vaccine at PCP Aida Carroll's office.2Admin Note: MANUFACTURE BIOMEDICAL INFO SHEET GIVEN GIVEN W/O [id number] Note: GIVEN W/O INCIDENT INFO SHEET GIVEN [...] 11/21/20 12:05:00 EDT, 11/11/20 12:05:00 EDT, Suspension, [id number], Partial fill upon patient request if the prescription is for a schedule II opioid drJimena. Start Date: 11/11/20 Stop Date: 11/21/20 Status: Orderederythromycin ethylsuccinate 200 mg/5 ml oral suspension 6 mL = 240 mg, By Mouth, Every 8 hours, for 10 days, # 180 mL, 0 Refills, Acute 12/01/20 12:05:00 EDT, 11/21/20 12:05:00 EDT, Suspension, [facility]acy #[id number], Partial fill upon patient request if the [...] oldest [Reference 1 2 3 Range]: Height 164 cm 164 cm 164 cm (11/15/20 6:59 AM) (11/15/20 5:27 AM) (11/15/20 4:56 A M) Weight 65 kg 65 kg 65 kg (11/15/20 6:59 AM) (11/15/20 5:27 AM) (11/15/20 4:56 A M) Oxygen Saturation [94-100 %] 100 % 97 % 96 % (11/15/20 6:59 AM) (11/15/20 5:27 AM) (11/15/20 4:55 A M) Pulse Rate [55-90 bpm] 100 bpm 71 bpm 78 bpm *H* (11/15/20 5:27 AM) (11/15/20 4:55 AM ) (11/15/20 6:59 AM) Body Mass Index [18.5-24.99] 24.17 24.17 (11/15/20 6:59 AM) (11/15/20 5:27 AM) Blood Pressure [90-138/55-84 mm 135/74 mm Hg 126/64 mm Hg 116/61 mm Hg Hg] (11/15/20 6:59 AM) (11/15/20 5:27 AM) (11/15/20 4:55 A M) Respiratory Rate [16-30 br/min] 16 br/min 16 br/min 17 br/min (11/15/20 6:59 AM) (11/15/20 5:27 AM) (11/15/20 4:55 A M) Temperature [96.8-100.4 DegF] 97.0 DegF (11/15/20 4:55 AM) Liters per Minute 0 L/min 0 L/min (11/15/20 5:27 AM) (11/15/20 4:55 AM) Mode of Delivery (Oxygen) Room air Room air Room a ir (11/15/20 6:59 AM) (11/15/20 5:27 AM) (11/15/20 4:55 A M) Blood pressure sites Arm, right Arm, left Arm, left (11/15/20:59 AM) (11/15/20 5:27 AM) (11/15/20 4:55 A M) Temperature Route Axillary (11/15/20 4:55 AM) Dry Weight 65 kg 65 kg 65 kg (11/15/20:59 AM) (11/15/20 5:27 AM) (11/15/20 4:56 A M) Social History Social History Type Response Smoking Status Never smoker entered on: 02/19/16 Sex
--- OUTSIDE RECORDS SUMMARY | 2022-02-26 16:13 | XMS_ITS | Continuity of Care Document ---
:1985 Author Organization [facility] Address [address] [place] [address]- Care Team Providers Name Role Phone Arnol BAEZ, Asma Primary Care Physician Encounter [facility] Date(s): 02/11/20 - 02/12/[address] [address]- [facility] Discharge Disposition: A-D/C Home Attending Physician: Isiah Conrad DO Admitting Physician: Meli De Dios DO Referring Physician: Sue Seals MD Allergies, Adverse Reactions, Alerts Substance Reaction [...] MANUFACTURE BIOMEDICAL INFO SHEET GIVEN GIVEN W/O [id number] Note: GIVEN W/O INCIDENT INFO SHEET GIVEN Medications Humalog 100 u/ml subcutaneous injection = 14 units, INJECT 22 UNITS 4 TIMES A DAY Start Date: 11/26/16 Status: OrderedLantus Solostar Pen 100 units/mL subcutaneous solution = 60 units, Subcutaneous Injection, Daily at bedtime, 0 Refills, Maintenance, 11/26/16 17:07:29 EDT Start Date: 11/26/16 Status: OrderedLORazepam 1 mg oral tablet TAKE 1 TABLET BY MOUTH EVERY 6 HOURS NEEDED FOR ANXIETY Start Date: 11/26/16 Status: Orderedpantoprazole 40 mg oral delayed release tablet 1 tablet = 40 mg, By Mouth, Daily, # 30 tablet, 0 Refills, Maintenance, 02/12/20 11:39:00 EDT, EC Tablet Start Date: 02/12/20 Status: OrderedtraMADol 50 mg oral tablet 1 tablet = 50 mg, By Mouth, Every 12 hours, PRN as needed for pain, # 7 tablet, 0 Refills, Acute 02/17/20 11:43:00 EDT, 02/12/20 11:40:00 EDT, Tablet Start Date: 02/12/20 Stop Date: 02/17/20 Status: OrderedZofran 4 mg oral tablet 1 [...] oldest 1 2 3 [Reference Range]: Height 165 cm 165 cm (02/11/20 6:39 PM) (02/11/20 10:40 AM) Weight 75.4 kg 79 kg (02/11/20 6:39 PM) (02/11/20 10:40 AM) Oxygen Saturation [94-100 %] 100 % 100 % 100 % (02/11/20 10:00 PM) (02/11/20 9:00 PM) (02/11/20 8: 00 PM) Pulse Rate [55-90 bpm] 78 bpm 79 bpm 98 bpm (02/11/20 6:39 PM) (02/11/20 5:55 PM) *H* (02/11/20 10:40 A M) Body Mass Index [18.5-24.99] 27.7 *H* (02/11/20 6:39 PM) Blood Pressure [90-138/55-84 150/82 mm Hg 144/87 mm Hg 146 /89 mm Hg mm Hg] *H* *H* *H* (02/11/20 7:00 PM) (02/11/20 6:39 PM) (02/11/20 5:5 5 PM) Respiratory Rate [16-30 18 br/min 16 br/min 18 br/mi n br/min] (02/12/20 12:33 PM) (02/12/20 5:18 AM) (02/12/20 4: 48 AM) Temperature [96.8-100.4 97.5 DegF 96.8 DegF 97.3 Deg F DegF] (02/12/20 8:00 AM) (02/12/20 4:00 AM) (02/11/20 8:0 0 PM) Mode of Delivery (Oxygen) Room air Room air Room a ir (02/11/20 10:00 PM) (02/11/20 9:00 PM) (02/11/20 8: 00 PM) Blood pressure sites Arm, left Arm, left Arm, right (02/11/20 6:39 PM) (02/11/20 5:55 PM) (02/11/20 10: 40 AM) Temperature Route Temporal Temporal Temporal (02/12/20 8:00 AM) (02/12/20 4:00 AM) (02/11/20 8:0 0 PM) Dry Weight 79 kg 79 kg (02/11/20 6:39 PM) (02/11/20 10:40 AM) Weight Obtained Via Bed scale (02/11/20 6:39 PM) Social History Social History Type Response Smoking Status Never smoker entered on: 02/19/16 Sex
--- OUTSIDE RECORDS SUMMARY | 2022-02-26 16:13 | XMS_ITS | Continuity of Care Document ---
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 #3 Immunizations Given and Recorded Vaccine Date Status Refusal Reason influenza virus vaccine, inactivated 02/12/20 Given influenza virus vaccine, inactivated 03/13/16 Given influenza virus vaccine, inactivated1 01/14/12 Given influenza virus vaccine, inactivated2 05/27/10 Given tetanus/diphtheria/pertussis, acel(Tdap)3 12/16/09 Given 1Admin Note: Pt received vaccine at PCP Aida Carroll's office.2Admin Note: MANUFACTURE BIOMEDICAL INFO SHEET GIVEN GIVEN W/O [id number] Note: GIVEN W/O INCIDENT INFO SHEET GIVEN [...] TIMES A DAY Start Date: 11/26/16 Status: OrderedLauraus Solostar Pen 100 units/mL subcutaneous solution = [...]
--- OUTSIDE RECORDS SUMMARY | 2022-02-26 16:13 | XMS_ITS | Continuity of Care Document ---
:1985 Author Organization [facility] Address [address], [address] [place] [address]- Care Team Providers Name Role Phone Arnol BAEZ, Asma Primary Care Physician [facility] Date(s): 12/24/19 - 02/08/20 [facility] [address] [place] [address]- [facility] Attending Physician: Rocio Mccormick MD Referring Physician: Not on Staff, Referring [...] MANUFACTURE BIOMEDICAL INFO SHEET GIVEN GIVEN W/O [id number] Note: GIVEN W/O INCIDENT INFO SHEET GIVEN [...] 0 Refills, Maintenance, 05/08/19 4:26:00 EST, Tablet, [facility], 173, cm, 05/07/19 22:00:00 [...]
--- OUTSIDE RECORDS SUMMARY | 2022-02-26 16:13 | XMS_ITS | Continuity of Care Document ---
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 Start Date: 03/22/21 Stop Date: 04/21/21 Status: Orderedcyanocobalamin 100 mcg oral tablet 100 mcg, 1, tablet, By Mouth, Daily, # 30 tablet, Refills 0, Tot. Refills 0, Maintenance, 12/14/20 9:12:00 EDT, Route to Pharmacy Electronically, [facility]/pharmacy #[id number], Partial fill upon patient request [...] 12/14/20 9:12:00 EDT, Route to Pharmacy Electronically, [facility]/pharmacy #[id number], Partial fill upon patient request [...] Acute 09/18/21 8:48:00 EDT, 03/22/21 8:48:00 EST, [facility]/pharmacy #[id number], Partial fill upon patient request if the prescription is for a schedule II opi... Start Date: 03/22/21 Stop Date: 09/18/21 Status: OrderedZofran 4 mg oral tablet 1 tablet = 4 mg, By Mouth, Every 8 hours, PRN as needed for nausea/vomiting, # 6 tablet, 0 Refills, Maintenance, 03/19/21 18:00:00 EDT, Tablet, [facility]/pharmacy #[id number], Partial fill upon patient request [...] Height 173 cm 173 cm 173 cm (07/19/21 1:47 AM) (07/18/21 11:53 PM) (07/18/21 11:46 PM) Weight 73 kg 73 kg 73 kg (07/19/21 1:47 AM) (07/18/21 11:53 PM) (07/18/21 11:46 PM) Oxygen Saturation [94-100 98 % 100 % 100 % %] (07/19/21 1:47 AM) (07/18/21 11:53 PM) (07/18/21 11:46 PM) Pulse Rate [55-90 bpm] 93 bpm 84 bpm 84 bpm *H* (07/18/21 11:53 PM) (07/18/21 11:46 PM) (07/19/21 1:47 AM) Body Mass Index 24.39 24.39 [18.5-24.99] (07/19/21 1:47 AM) (07/18/21 11:46 PM) Blood Pressure 111/79 mm Hg 130/64 mm Hg 130/64 mm Hg [90-138/55-84 mm Hg] (07/19/21 1:47 AM) (07/18/21 11:53 PM) (07/18/21 11:46 PM) Respiratory Rate [16-30 18 br/min 16 br/min 16 br/mi n br/min] (07/19/21 1:47 AM) (07/18/21 11:53 PM) (07/18/21 11:46 PM) Temperature [96.8-100.4 97.1 DegF 97 DegF 97 DegF DegF] (07/19/21 1:47 AM) (07/18/21 11:53 PM) (07/18/21 11:46 PM) Mode of Delivery (Oxygen) Room air Room air Room a ir (07/19/21 1:47 AM) (07/18/21 11:53 PM) (07/18/21 11:46 PM) Blood pressure sites Arm, left Arm, left (07/19/21 1:47 AM) (07/18/21 11:46 PM) Temperature Route Temporal Temporal Temporal (07/19/21 1:47 AM) (07/18/21 11:53 PM) (07/18/21 11:46 PM) Dry Weight 73 kg 73 kg 73 kg (07/19/21 1:47 AM) (07/18/21 11:53 PM) (07/18/21 11:46 PM) Weight Obtained Via Patient/family stated (07/18/21 11:46 PM) Dry Weight Obtained Via Patient/family stated (07/18/21 11:46 PM) Social History Social History Type Response Smoking Status Never smoker entered on: 02/19/16 Sex
--- OUTSIDE RECORDS SUMMARY | 2022-02-26 16:13 | XMS_ITS | Continuity of Care Document ---
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 Start Date: 03/22/21 Stop Date: 04/21/21 Status: Orderedcyanocobalamin 100 mcg oral tablet 100 mcg, 1, tablet, By Mouth, Daily, # 30 tablet, Refills 0, Tot. Refills 0, Maintenance, 12/14/20 9:12:00 EDT, Route to Pharmacy Electronically, [facility]/pharmacy #[id number], Partial fill upon patient request [...] 12/14/20 9:12:00 EDT, Route to Pharmacy Electronically, [facility]/pharmacy #[id number], Partial fill upon patient request [...] Acute 09/18/21 8:48:00 EDT, 03/22/21 8:48:00 EST, [facility]/pharmacy #[id number], Partial fill upon patient request if the prescription is for a schedule II opi... Start Date: 03/22/21 Stop Date: 09/18/21 Status: OrderedZofran 4 mg oral tablet 1 tablet = 4 mg, By Mouth, Every 8 hours, PRN as needed for nausea/vomiting, # 6 tablet, 0 Refills, Maintenance, 03/19/21 18:00:00 EDT, Tablet, [facility]/pharmacy #[id number], Partial fill upon patient request if the prescription is for a schedule II opioid drug.... Start Date: 11/5/21 Status: Ordered Problem List Condition Effective Dates Status Health Status Informant Anemia(Confirmed) Active Anxiety(Confirmed) Active Diabetes mellitus(Confirmed) 2000 Active Gastroparesis due to DM(Confirmed) 02/11/12 Active Hypertension(Confirmed) Active Intractable nausea and Active vomiting(Confirmed) Nausea and vomiting(Confirmed) Active Vomiting(Confirmed) Active Vital Signs Most recent to oldest [Reference Range]: 1 Height 173 cm (03/29/21 7:31 AM) Weight 77.6 kg (03/29/21 7:31 AM) Oxygen Saturation [94-100 %] 97 % (03/29/21 7:31 AM) Pulse Rate [55-90 bpm] 62 bpm (03/29/21 7:31 AM) Blood Pressure [90-138/55-84 mm Hg] 125/86 mm Hg (03/29/21 7:31 AM) Respiratory Rate [16-30 br/min] 18 br/min (03/29/21 7:31 AM) Temperature [96.8-100.4 DegF] 97.6 DegF (03/29/21 7:31 AM) Mode of Delivery (Oxygen) Room air (03/29/21 7:31 AM) Blood pressure sites Arm, right (03/29/21 7:31 AM) Temperature Route Temporal (03/29/21 7:31 AM) Dry Weight 77.6 kg (03/29/21 7:31 AM) Weight Obtained Via Standing scale (03/29/21 7:31 AM) Social History Social History Type Response Smoking Status Never smoker entered on: 02/19/16 Sex
[2022-02-26 16:15] LABS: COVID-19 Test Negative (Negative); IDNOW Serial# 16C4AD1C
[2022-02-26 16:18] LABS: Basophils Absolute Auto 0.1 X10*3/uL (0.0-0.2); Basophils Percent Auto 1.2 % (0-2); Eosinophils Absolute Auto 0.2 X10*3/uL (0.0-0.4); Eosinophils Percent Auto 1.8 % (0-4); Hematocrit 26.7 % (37.0-47.0); Hemoglobin 8.2 g/dl (12.0-16.0); Imm Gran Abs Auto 0.03 X10*3/uL (0.00-0.03); Imm Gran Pct Auto 0.4 % (0.0-0.4); Lymphocytes Absolute Auto 1.9 X10*3/uL (1.2-4.9); Lymphocytes Percent Auto 23.1 % (20-40); Mean Corpuscular HGB Conc 30.7 g/dl (31.0-35.0); Mean Corpuscular Hemoglobin 24.8 pg (27.0-33.0); Mean Corpuscular Volume 80.7 fL (80.0-98.0); Mean Platelet Volume 9.5 fL (9.4-12.3); Monocytes Absolute Auto 0.7 X10*3/uL (0.1-1.2); Monocytes Percent Auto 8.3 % (2-11); Neutrophils Absolute Auto 5.3 x10*3/uL (2.0-8.3); Neutrophils Percent Auto 65.2 % (45-73); Platelet Count 487 X10*3/uL (160-400); Red Blood Count 3.31 X10*6/uL (4.20-5.50); Red Cell Distribution Width 17.9 % (11.0-16.0); White Blood Count 8.1 X10*3/uL (4.8-10.8)
[2022-02-26 16:22] LABS: Glucose, Whole Blood 132 mg/dL (60-115)
[2022-02-26] MEDS: Metoclopramide HCl 10 MG TABLET PO (16:46)
[2022-02-26] MEDS: Acetaminophen 325 MG TABLET 975 MG PO (18:30)
== END 2022-02-26 21:02 | disposition left against medical advice (07) ==
PROVIDERS: Emergency Provider Emergency Medicine; PCP Physician Assistant
DX: B34.9 Viral infection, unspecified (principal); G89.29 Other chronic pain; R10.9 Unspecified abdominal pain; Z20.822 Contact with and (suspected) exposure to COVID-19; E10.22 Type 1 diabetes mellitus with diabetic chronic kidney disease; I12.9 Hypertensive chronic kidney disease with stage 1 through stage 4 chronic kidney disease, or unspecified chronic kidney disease; N18.9 Chronic kidney disease, unspecified; Z79.4 Long term (current) use of insulin
CPT/HCPCS: 71045; 80053; 81001; 81025; 82248; 82947; 83690; 85025; 87635; 99283; 99284

== ENCOUNTER 2022-08-03 17:18 | Emergency (ER) | payer OTHER, SELFPAY ==
--- NOTE | 2022-08-03 17:23 | ECG_ITS ---
Test Reason : CHEST PAIN Blood Pressure : / mmHG Vent. Rate : 101 BPM Atrial Rate : 101 BPM P-R Int : 126 ms QRS Dur : 080 ms QT Int : 338 ms P-R-T Axes : 061 -17 056 degrees QTc Int : 438 ms Sinus tachycardia Otherwise normal ECG When compared with ECG of 13-NOV-2021 12:00, Nonspecific T wave abnormality no longer evident in Inferior leads Referred By: Giovanny Mendiola Electronically Signed By:BRENT PACKER MD
[2022-08-03 17:28] VITALS: BP 106/53; PULSE 106; RESP 22; TEMP 36.8; O2SAT 100; BMI 22.8
--- NOTE | 2022-08-03 17:31 | ED.GENADULT ---
HPI - General Adult General Chief complaint: Chest Pain Stated complaint: chest pain,vomiting back pain Related Data Home Medications Medication Instructions Recorded Confirmed cyanocobalamin (vitamin B-12) 100 1 tab PO DAILY 02/09/21 10/04/21 mcg tablet insulin glargine 100 unit/mL (3 22 unit subcut BEDTIME 10/04/21 10/04/21 mL) subcutaneous pen insulin lispro 100 unit/mL 4 - 5 unit subcut TIDAC 10/04/21 10/04/21 subcutaneous pen naproxen 500 mg tablet 500 mg PO BID PRN Pain 10/04/21 10/04/21 omeprazole 20 mg capsule,delayed 20 mg PO DAILY 10/04/21 10/04/21 release Previous Rx's Medication Instructions Recorded dicyclomine 10 mg capsule 10 mg PO TID PRN abdominal 03/30/21 discomfort #90 caps ferrous fumarate 325 mg (106 mg 325 mg PO DAILY #30 tabs 03/30/21 iron) tablet vitamin B complex (Vitamins B 1 tab PO DAILY #30 tabs 03/30/21 Complex tablet) cyclobenzaprine 10 mg tablet 10 mg PO TID PRN muscle spasm #14 11/10/21 tabs lidocaine 5 % topical patch 1 patch topical DAILY #30 ea 11/10/21 metoclopramide HCl 10 mg tablet 10 mg PO AC PRN nausea and 02/26/22 (Reglan) vomiting #14 tabs benzonatate 100 mg capsule 100 mg PO TID PRN cough #20 caps 12/19/22 Allergies Allergy/AdvReac Type Severity Reaction Status Date / Time morphine [MORPHINE] Allergy Unknown HIVES Verified 07/06/21 09:55 raspberry [Raspberry] Allergy Unknown HIVES Verified 07/06/21 09:55 nitrofurantoin AdvReac Unknown GI side Verified 07/06/21 09:55 [From Macrobid] effects [facility] Past Medical History Medical History Anxiety Chronic kidney disease Chronic pain disorder Diabetes Gastroparesis GERD without esophagitis Hordeolum externum of right eye Hypertension Iron deficiency anemia Nausea Surgical History History of right cataract surgery Hx of right BKA Family History Family History Father Hyperlipidemia Mother Stomach cancer Sister Diabetes Mental health disorder Social History Social History Housing: Apartment Alcohol intake: never Patient Tobacco Use Status: Never used Tobacco e-Cigarette/Vaping Use: Never Used Second Hand Smoke Exposure: No Substance Use Type: Marijuana Advance Directives: Yes Advance Directives on File: Yes Advance Directives Date on File: 02/09/21 service: No Current occupational status: disabled Cognitive needs: No Hearing needs: No Vision needs: Yes (annual eye exam) Physical Exam ED Vital Signs: BMI result Body Mass Index 22.8 Course Course Course Narrative: 87-year-old female presents for evaluation of what she describes as chest pain. She appears to be indicating more her epigastrium describes her pain as burning and ray and the back. EKG is sinus tachycardia without ischemia. Patient has a history of anxiety, chronic abdominal pain, type 1 diabetes and gastroparesis, anemia. Labs ordered including troponin Discharge Plan Discharge Clinical Impression: Chest pain Patient Disposition: Elopement Prescriptions: No Action omeprazole 20 mg capsule,delayed release(DR/EC) 20 mg PO DAILY naproxen 500 mg tablet 500 mg PO BID PRN (Reason: Pain) insulin lispro 100 unit/mL insulin pen 4 - 5 unit subcut TIDAC insulin glargine 100 unit/mL (3 mL) insulin pen 22 unit subcut BEDTIME metoclopramide HCl [Reglan] 10 mg tablet 10 mg PO AC PRN (Reason: nausea and vomiting) Qty: 14 0RF cyanocobalamin (vitamin B-12) 100 mcg tablet 1 tab PO DAILY cyclobenzaprine 10 mg tablet 10 mg PO TID PRN (Reason: muscle spasm) Qty: 14 0RF lidocaine 5 % adhesive patch,medicated 1 patch topical DAILY Qty: 30 0RF Rx Instructions: leave on most painful area for up to 12 hrs benzonatate 100 mg capsule 100 mg PO TID PRN (Reason: cough) Qty: 20 0RF ferrous fumarate 325 mg (106 mg iron) tablet 325 mg PO DAILY Qty: 30 1RF vitamin B complex [Vitamins B Complex] Tablet 1 tab PO DAILY Qty: 30 0RF dicyclomine 10 mg capsule 10 mg PO TID PRN (Reason: abdominal discomfort) Qty: 90 0RF Discharge Date/Time: 08/03/22 20:55
--- OUTSIDE RECORDS SUMMARY | 2022-08-03 17:39 | XMS_ITS ---
:1985 Author Organization [facility] Address [address] [place] [address] Care Team Providers Name Role Phone Matt Ding Unavailable Unavailable PROBLEMS Unknown Problems ALLERGIES No Information ENCOUNTERS Encounter Location Date Diagnosis [facility] [address], [address] [place] [address] [facility] [address] [place] [address] [facility] Inpatient [address] [place] [address] Jun, [id number] IMMUNIZATIONS No Known Immunizations SOCIAL HISTORY Never [...] ANEMIA , Upper GI bleed Insurance Providers [facility] Member Patient Patient Patient Patient Patient Subscriber Subscriber Subscriber Group Insurance Plan Plan Plan Plan ID Relationship Address Phone Name Date of ID Name Date of No Type Insurance Insurance Insurance Coverage to Subscriber Address Phone Name Dates Karena [phone] Karena self YI 1985 [id number] [place] [id number] [place] [id number]
--- NOTE | 2022-08-03 17:53 | MHC.EDTECH ---
PT is a hard stick, stated she has small veins, and hasn't been able to keep fluids down. Stated she is in a lot of pain - unable to hold still. Tech tried X2
== END 2022-08-03 20:55 | disposition left against medical advice (07) ==
PROVIDERS: Emergency Provider Emergency Medicine
DX: R07.89 Other chest pain (principal); R10.13 Epigastric pain; R00.0 Tachycardia, unspecified; E11.22 Type 2 diabetes mellitus with diabetic chronic kidney disease; I12.9 Hypertensive chronic kidney disease with stage 1 through stage 4 chronic kidney disease, or unspecified chronic kidney disease; N18.9 Chronic kidney disease, unspecified; Z79.4 Long term (current) use of insulin; Z79.899 Other long term (current) drug therapy
CPT/HCPCS: 93005; 99283

== ENCOUNTER 2022-12-19 07:43 | Emergency (ER) | payer OTHER, SELFPAY ==
--- NOTE | ~2022-12-19 | XR_ITS ---
EXAMINATION: XR CHEST CLINICAL INFORMATION: Cough, chest pain. COMPARISON: 02/26/2022 chest radiograph. TECHNIQUE: 2 views of the chest were obtained. FINDINGS: No significant abnormality is noted involving the heart, lungs, mediastinum, bony thorax or soft tissues. XR/XR chest 2V IMPRESSION: No acute cardiopulmonary process.
[2022-12-19 07:45] VITALS: BP 119/73; PULSE 82; RESP 16; TEMP 36.1; O2SAT 99; BMI 22.8
[2022-12-19 07:48] VITALS: BP 119/73; PULSE 69; RESP 16; TEMP 36.1; O2SAT 99; BMI 22.8
--- NOTE | 2022-12-19 08:04 | ED.GENADULT ---
HPI - General Adult General Chief complaint: Upper Respiratory Symptoms Stated complaint: Cough/Headache Time Seen by Provider: 12/19/22 07:59 Source: patient Mode of arrival: ambulatory Limitations: no limitations History of Present Illness HPI narrative: Patient is a 37-year-old female with history of T1DM, mesenteric ischemia, gastroparalysis, BKA presenting to the emergency department with 1 week of productive cough, generalized body aches, nasal congestion, and sore throat. Patient reports bilateral posterior rib pain worse with coughing. Denies other sick family members at home. Denies fevers. Denies ear pain. Denies abdominal pain, nausea, vomiting, diarrhea or constipation. Has been able to eat/drink normally. Denies hemoptysis. Denies calf pain or swelling. Denies personal or family history of blood clots. MD complaint: Cough, body aches Onset (ago): week(s) Location: chest Radiation: back Severity: moderate Quality: aching Pain Consistency: intermittent Relieving factors: rest Exacerbating factors: other (Coughing) Associated symptoms: cough Treatments prior to arrival: none Related Data Home Medications Medication Instructions Recorded Confirmed cyanocobalamin (vitamin B-12) 100 1 tab PO DAILY 02/09/21 10/04/21 mcg tablet insulin glargine 100 unit/mL (3 22 unit subcut BEDTIME 10/04/21 10/04/21 mL) subcutaneous pen insulin lispro 100 unit/mL 4 - 5 unit subcut TIDAC 10/04/21 10/04/21 subcutaneous pen naproxen 500 mg tablet 500 mg PO BID PRN Pain 10/04/21 10/04/21 omeprazole 20 mg capsule,delayed 20 mg PO DAILY 10/04/21 10/04/21 release Previous Rx's Medication Instructions Recorded dicyclomine 10 mg capsule 10 mg PO TID PRN abdominal 03/30/21 discomfort #90 caps ferrous fumarate 325 mg (106 mg 325 mg PO DAILY #30 tabs 03/30/21 iron) tablet vitamin B complex (Vitamins B 1 tab PO DAILY #30 tabs 03/30/21 Complex tablet) cyclobenzaprine 10 mg tablet 10 mg PO TID PRN muscle spasm #14 11/10/21 tabs lidocaine 5 % topical patch 1 patch topical DAILY #30 ea 11/10/21 metoclopramide HCl 10 mg tablet 10 mg PO AC PRN nausea and 02/26/22 (Reglan) vomiting #14 tabs benzonatate 100 mg capsule 100 mg PO TID PRN cough #20 caps 12/19/22 Allergies Allergy/AdvReac Type Severity Reaction Status Date / Time morphine [MORPHINE] Allergy Unknown HIVES Verified 07/06/21 09:55 raspberry [Raspberry] Allergy Unknown HIVES Verified 07/06/21 09:55 nitrofurantoin AdvReac Unknown GI side Verified 07/06/21 09:55 [From Macrobid] effects Review of Systems Review of Systems: As per HPI. Yes all other systems are reviewed and are negative Constitutional: Constitutional: Reports as per HPI [facility] Past Medical History Medical History Anxiety Chronic kidney disease Chronic pain disorder Diabetes Gastroparesis GERD without esophagitis Hordeolum externum of right eye Hypertension Iron deficiency anemia Nausea Surgical History History of right cataract surgery Hx of right BKA Family History Family History Father Hyperlipidemia Mother Stomach cancer Sister Diabetes Mental health disorder Social History Social History Housing: Apartment Alcohol intake: never Patient Tobacco Use Status: Never used Tobacco e-Cigarette/Vaping Use: Never Used Second Hand Smoke Exposure: No Substance Use Type: Marijuana Advance Directives: Yes Advance Directives on File: Yes Advance Directives Date on File: 02/09/21 service: No Current occupational status: disabled Cognitive needs: No Hearing needs: No Vision needs: Yes (annual eye exam) Physical Exam ED Vital Signs: Vital Signs - 24 hr 12/19/22 07:45 12/19/22 07:48 12/19/22 09:40 Temperature 97.0 F 97.0 F 97.9 F Pulse Rate 82 69 73 Respiratory Rate 16 16 18 Blood Pressure 119/73 119/73 101/64 Pulse Oximetry 99 99 99 Oxygen Delivery Method Room Air Room Air Room Air BMI result Body Mass Index 22.8 Vital signs have been reviewed and appear to be correct. Blood pressure normal. Heart rate normal. Respiratory rate normal. Temperature normal. Oxygen saturation normal. Const General: cooperative, healthy appearing and no acute distress Orientation/consciousness: oriented to person, oriented to place, oriented to time and patient oriented x3 Limitations: no limitations HENMT Head: Yes normocephalic and Yes atraumatic Ears: external ears normal, TM's normal bilaterally and EAC's normal General nose exam: Normal external nose present, Normal nares present and Normal septum present Face and sinus: Yes face symmetric Mouth: oropharynx normal and moist mucous membranes Throat: Yes uvula midline, Yes posterior oropharynx abnormal (mild erythema, no edema or exudate, no trismus) and No uvular edema Eyes Pupils: Equal, round and reactive pupils present Neck Neck: Yes normal visual inspection and Yes supple Resp Effort & Inspection: normal respiratory effort and able to speak in complete sentences Auscultation: clear to auscultation bilaterally Cardio Rate: regular rate Rhythm: regular rhythm Heart sounds: S1 normal heart sound present and S2 normal heart sound present GI Palpation (GI): Soft to palpation and nontender Auscultation: normoactive bowel sounds General: Yes no CVA tenderness Back/Spine/Pelvis Back: no CVA tenderness Skin General skin exam: elasticity normal and turgor normal Neuro General: oriented to person, oriented to place, oriented to time, patient oriented x3, moves all extremities, no focal motor deficits and CN's II-XI intact bilaterally Cranial nerves: Yes Equal, round and reactive pupils present Cognition (Neuro): normal cognition Extrem General: Yes full ROM, Yes no pedal edema and Yes no calf tenderness Psych Mental Status: mental status grossly normal Affect: normal affect Thought process: Normal thought process present Medical Decision Making Medical Decision Making MDM Narrative: Patient is a 37-year-old female with history of T1DM, mesenteric ischemia, gastroparalysis, BKA presenting to the emergency department with 1 week of productive cough, generalized body aches, nasal congestion, and sore throat. On exam patient is awake, A+Ox3, VS WNL, afebrile, normal neurological exam without focal deficits, TMs normal bilat, mild erythema to posterior oropharynx without edema or exudate, LS CTA throughout, RRR. Given reported symptoms and physical exam findings, initial differential includes viral upper respiratory infection, bronchitis, pneumonia, strep pharyngitis. Feel ACS is unlikely however, given patient's history of DM will obtain EKG and troponin. PE unlikely based on PERC score of 0. Will swab for flu, Covid, strep, obtain EKG and CXR. 10:23 Labs notable for negative troponin, anemia consistent with baseline and slightly improved from prior, no leukocytosis. EKG shows NSR. HEART score of 2. X-ray notable for no acute process. My interpretation is in agreement with the radiologist's interpretation. Covid/flu/strep all negative. Feel symptoms are likely related to a viral URI. Will discharge patient with prescription for benzonatate. Instructed her to follow up with PCP. Return precautions discussed at bedside. Patient verbalized understanding of and agreement with plan. Differential Diagnosis Differential Diagnoses: The differential diagnosis associated with the presentation includes As per [facility]. Admission/Observation Consideration of admission/observation: Escalation of care including admission/observation considered Lab Data [facility] Lab Attestation statement: I reviewed the patient's lab results. As per [facility]. 12/19/22 09:37 12/19/22 09:37 Labs: Lab Results 12/19/22 12/19/22 12/19/22 Range/Units 08:42 08:42 08:42 WBC (4.8-10.8) X10*3/uL RBC (4.20-5.50) X10*6/uL Hgb (12.0-16.0) g/dl Hct (37.0-47.0) % MCV (80.0-98.0) fL MCH (27.0-33.0) pg MCHC (31.0-35.0) g/dl RDW (11.0-16.0) % Plt Count (160-400) X10*3/uL MPV (9.4-12.3) fL Immature Gran % (Auto) (0.0-0.4) % Neut % (Auto) (45-73) % Lymph % (Auto) (20-40) % Arroyo % (Auto) (2-11) % Eos % (Auto) (0-4) % Baso % (Auto) (0-2) % Lymph # (Auto) (1.2-4.9) X10*3/uL [place]royo # (Auto) (0.1-1.2) X10*3/uL Eos # (Auto) (0.0-0.4) X10*3/uL Baso # (Auto) (0.0-0.2) X10*3/uL Abs Immat Gran (auto) (0.00-0.03) X10*3/uL Absolute Neuts (auto) (2.0-8.3) x10*3/uL Absolute Nucleated RBC (0.0-0.012) X10*3/uL Nucleated RBC % (auto) (0.0-0.2) /100WBC Sodium (135-145) mmol/L Potassium (3.3-5.1) mmol/L Chloride (96-108) mmol/L Carbon Dioxide (22-29) mmol/L Anion Gap (12-20) BUN (9-16) mg/dL Creatinine (0.5-1.4) mg/dL Estim Creat Clear Calc Estimated GFR Random Glucose (60-115) mg/dL Calcium (8.4-10.2) mg/dL Troponin I High Sens < 2.7 (<3.5-17.0) ng/L COVID-19 (FANNIE) Negative (Negative) COVID-19 Clin Com See Note Influenza Type A (YOANDY) Negative (Negative) Influenza Type B (YOANDY) Negative (Negative) Influenza A & B Note See Note S. pyogenes GrpA YOANDY (Negative) 12/19/22 12/19/22 12/19/22 Range/Units 09:37 09:37 09:49 WBC 6.9 (4.8-10.8) X10*3/uL RBC 3.33 L (4.20-5.50) X10*6/uL Hgb 8.6 L (12.0-16.0) g/dl Hct 27.9 L (37.0-47.0) % MCV 83.8 (80.0-98.0) fL MCH 25.8 L (27.0-33.0) pg MCHC 30.8 L (31.0-35.0) g/dl RDW 18.6 H (11.0-16.0) % Plt Count 330 D (160-400) X10*3/uL MPV 8.8 L (9.4-12.3) fL Immature Gran % (Auto) 0.4 (0.0-0.4) % Neut % (Auto) 59.5 (45-73) % Lymph % (Auto) 27.6 (20-40) % Arroyo % (Auto) 8.1 (2-11) % Eos % (Auto) 3.5 (0-4) % Baso % (Auto) 0.9 (0-2) % Lymph # (Auto) 1.9 (1.2-4.9) X10*3/uL Arroyo # (Auto) 0.6 (0.1-1.2) X10*3/uL Eos # (Auto) 0.2 (0.0-0.4) X10*3/uL Baso # (Auto) 0.1 (0.0-0.2) X10*3/uL Abs Immat Gran (auto) 0.03 (0.00-0.03) X10*3/uL Absolute Neuts (auto) 4.1 (2.0-8.3) x10*3/uL Absolute Nucleated RBC 0.000 (0.0-0.012) X10*3/uL Nucleated RBC % (auto) 0.0 (0.0-0.2) /100WBC Sodium 138 (135-145) mmol/L Potassium 4.7 (3.3-5.1) mmol/L Chloride 107 (96-108) mmol/L Carbon Dioxide 20 L (22-29) mmol/L Anion Gap 16 (12-20) BUN 18 H (9-16) mg/dL Creatinine 1.91 H (0.5-1.4) mg/dL Estim Creat Clear Calc 40.2 Estimated GFR 29 Random Glucose 66 (60-115) mg/dL Calcium 9.5 (8.4-10.2) mg/dL Troponin I High Sens (<3.5-17.0) ng/L COVID-19 (FANNIE) (Negative) COVID-19 Clin Com Influenza Type A (YOANDY) (Negative) Influenza Type B (YOANDY) (Negative) Influenza A & B Note S. pyogenes GrpA YOANDY Negative (Negative) Independent Interpretation I performed an independent interpretation of an: EKG and Plain X-Ray Interpretation: EKG: normal sinus rhythm, rate 70bpm, normal PT and QT intervals CXR: no acute abnormality Radiology Impression Discussion of test interpretation with radiology: I have reviewed the radiologist's reading. Radiologist Impression: XR/XR chest 2V IMPRESSION: No acute cardiopulmonary process. External Record Review External record reviewed: Inpatient record, Office record and Outpatient record Prescription Management I considered prescription management with: Other (benzonatate) Chronic Conditions Patient?s care impacted by: Diabetes Scores Heart Score History: -0- slightly suspicious ECG: -1- non specific repolarization disturbance Age: -0- < or = 45 Risk factory: -1- 1 or 2 risk factors Troponin: -0- < or = normal limit Score: 2 Risk: 1.7% Discharge Plan Discharge Clinical Impression: Viral upper respiratory infection Patient Disposition: Home, Self-Care Instructions: Upper Respiratory Infection (DC), Viral Syndrome (ED) Additional Instructions: You were evaluated in the emergency department today for cough. Your chest x-ray did not show evidence of a pneumonia. Your cough is most likely due to a viral illness which will improve on its own with rest and fluids. You can take [id number] medications such as dextromethorphan to help manage your symptoms. You are also being prescribed benzonatate for cough which you can use every 8 hours as needed. Please schedule an appointment for follow-up with your primary care physician within 2 days. Return to the emergency department if you experience worsening cough, fever 100.4? F or greater, recurrent vomiting, chest pain, shortness of breath, or any other concerning symptoms. Prescriptions: New benzonatate 100 mg capsule 100 mg PO TID PRN (Reason: cough) Qty: 20 0RF No Action omeprazole 20 mg capsule,delayed release(DR/EC) 20 mg PO DAILY naproxen 500 mg tablet 500 mg PO BID PRN (Reason: Pain) insulin lispro 100 unit/mL insulin pen 4 - 5 unit subcut TIDAC insulin glargine 100 unit/mL (3 mL) insulin pen 22 unit subcut BEDTIME metoclopramide HCl [Reglan] 10 mg tablet 10 mg PO AC PRN (Reason: nausea and vomiting) Qty: 14 0RF cyanocobalamin (vitamin B-12) 100 mcg tablet 1 tab PO DAILY cyclobenzaprine 10 mg tablet 10 mg PO TID PRN (Reason: muscle spasm) Qty: 14 0RF lidocaine 5 % adhesive patch,medicated 1 patch topical DAILY Qty: 30 0RF Rx Instructions: leave on most painful area for up to 12 hrs ferrous fumarate 325 mg (106 mg iron) tablet 325 mg PO DAILY Qty: 30 1RF vitamin B complex [Vitamins B Complex] Tablet 1 tab PO DAILY Qty: 30 0RF dicyclomine 10 mg capsule 10 mg PO TID PRN (Reason: abdominal discomfort) Qty: 90 0RF
--- NOTE | 2022-12-19 08:05 | ECG_ITS ---
Test Reason : chest pain Blood Pressure : / mmHG Vent. Rate : 070 BPM Atrial Rate : 070 BPM P-R Int : 144 ms QRS Dur : 080 ms QT Int : 398 ms P-R-T Axes : 038 -25 018 degrees QTc Int : 429 ms Normal sinus rhythm Septal infarct , age undetermined Abnormal ECG When compared with ECG of 03-AUG-2022 17:24, Septal infarct is now Present Non-specific change in ST segment in Lateral leads Nonspecific T wave abnormality now evident in Inferior leads T wave amplitude has decreased in Lateral leads Referred By: Ayesha Aragon Electronically Signed By:Shaq Childers
[2022-12-19 09:15] LABS: IDNOW Serial# BCCEAD1C; Influenza A Negative (Negative); Influenza B2 Negative (Negative)
[2022-12-19 09:16] LABS: IDNOW Serial# 08D9AD1C
[2022-12-19 09:17] LABS: COVID-19 Test Negative (Negative)
[2022-12-19 09:40] VITALS: BP 101/64; PULSE 73; RESP 18; TEMP 36.6; O2SAT 99
[2022-12-19 09:40] LABS: Troponin-I High Sensitivity < 2.7 ng/L (<3.5-17.0)
[2022-12-19 09:41] LABS: MANUAL DIFF FLAG NO
[2022-12-19 09:43] LABS: Basophils Absolute Auto 0.1 X10*3/uL (0.0-0.2); Basophils Percent Auto 0.9 % (0-2); Eosinophils Absolute Auto 0.2 X10*3/uL (0.0-0.4); Eosinophils Percent Auto 3.5 % (0-4); Hematocrit 27.9 % (37.0-47.0); Hemoglobin 8.6 g/dl (12.0-16.0); Imm Gran Abs Auto 0.03 X10*3/uL (0.00-0.03); Imm Gran Pct Auto 0.4 % (0.0-0.4); Lymphocytes Absolute Auto 1.9 X10*3/uL (1.2-4.9); Lymphocytes Percent Auto 27.6 % (20-40); Mean Corpuscular HGB Conc 30.8 g/dl (31.0-35.0); Mean Corpuscular Hemoglobin 25.8 pg (27.0-33.0); Mean Corpuscular Volume 83.8 fL (80.0-98.0); Mean Platelet Volume 8.8 fL (9.4-12.3); Monocytes Absolute Auto 0.6 X10*3/uL (0.1-1.2); Monocytes Percent Auto 8.1 % (2-11); Neutrophils Absolute Auto 4.1 x10*3/uL (2.0-8.3); Neutrophils Percent Auto 59.5 % (45-73); Platelet Count 330 X10*3/uL (160-400); Red Blood Count 3.33 X10*6/uL (4.20-5.50); Red Cell Distribution Width 18.6 % (11.0-16.0); White Blood Count 6.9 X10*3/uL (4.8-10.8)
[2022-12-19 09:57] LABS: Anion Gap 16 (12-20); Blood Urea Nitrogen 18 mg/dL (9-16); Calcium 9.5 mg/dL (8.4-10.2); Carbon Dioxide 20 mmol/L (22-29); Chloride 107 mmol/L (96-108); Creatinine Clr Calc Pharmacy 40.2; Estimated Glomerular Filt Rate 29; Glucose Random 66 mg/dL (60-115); Potassium 4.7 mmol/L (3.3-5.1); Sodium 138 mmol/L (135-145)
[2022-12-19 10:18] LABS: IDNOW Serial# 08D9AD1C
[2022-12-19 10:19] LABS: Strep A Nucleic Acid Negative (Negative)
--- NOTE | 2022-12-19 10:42 | PC.NURSE ---
pt cleared for discharge, pt left without discharge instructions, pt independent, ambulated, no complaints on discharge.
== END 2022-12-19 10:42 | disposition home or self-care (01) ==
PROVIDERS: Registered Nurse Emergency; Emergency Provider Emergency Medicine
DX: J06.9 Acute upper respiratory infection, unspecified (principal); R05.9 Cough, unspecified; Z20.822 Contact with and (suspected) exposure to COVID-19; E10.22 Type 1 diabetes mellitus with diabetic chronic kidney disease; I12.9 Hypertensive chronic kidney disease with stage 1 through stage 4 chronic kidney disease, or unspecified chronic kidney disease; N18.9 Chronic kidney disease, unspecified; F12.90 Cannabis use, unspecified, uncomplicated; Z79.4 Long term (current) use of insulin; Z79.899 Other long term (current) drug therapy
CPT/HCPCS: 36415; 71046; 80048; 84484; 85025; 87502; 87635; 87651; 93005; 99283; 99284

== ENCOUNTER → 2022-12-19 08:05 | Outpatient (BNV) | payer OTHER, SELFPAY | PROVIDERS: Emergency Provider Emergency Medicine; Visit Provider Internal Medicine Cardiovascular Disease | DX: R94.31 Abnormal electrocardiogram [ECG] [EKG] (principal) | CPT/HCPCS: 93010 ==

== ENCOUNTER 2023-05-07 13:17 | Emergency (ER) | payer OTHER, SELFPAY ==
--- NOTE | ~2023-05-07 | CT_ITS ---
EXAMINATION: CT ABDOMEN AND PELVIS WITHOUT CONTRAST CLINICAL INFORMATION: Right flank pain COMPARISON: CT abdomen pelvis 11/13/2021 TECHNIQUE: Multidetector volumetric imaging was performed from the superior aspect of the liver through the pubic symphysis. Sagittal and coronal reformatted images were obtained on the technologist's workstation. This CT examination was performed using dose optimization techniques as appropriate, variously including the following: *Automated exposure control *Adjustment of mA and/or kV according to patient size (this includes techniques or standardized protocols for targeted exams where dose is matched to indication/reason for exam; i.e. extremities or head) *Use of iterative reconstruction technique DLP: 492 mGy-cm FINDINGS: LUNG BASES: The visualized lung bases are unremarkable. LIVER, GALLBLADDER, AND BILIARY TREE: The liver is normal in size, shape, and attenuation. No focal hepatic lesion or biliary ductal dilatation is present. The gallbladder is unremarkable with no evidence of radiopaque gallstones, gallbladder wall thickening, or obvious pericholecystic inflammatory changes. PANCREAS: Unremarkable. SPLEEN: Unremarkable. ADRENAL GLANDS: Unremarkable. KIDNEYS AND URETERS: The kidneys are normal in size and attenuation with lobular borders.. No hydronephrosis, hydroureter, or calculi seen. Calcifications seen in the kidneys are vascular. No perinephric stranding. BLADDER: Unremarkable. GASTROINTESTINAL TRACT: The small and large bowel are unremarkable. The appendix is unremarkable. ABDOMINAL WALL: No significant hernia is appreciated. A gastric stimulator is present in the left upper quadrant subcutaneous tissues. LYMPH NODES: No retroperitoneal lymphadenopathy VASCULAR: Calcific atherosclerotic changes are present in the aorta and iliofemoral vessels. There is no evidence of an abdominal aortic aneurysm. PELVIC VISCERA: The uterus and adnexa are unremarkable. OSSEOUS STRUCTURES: Unremarkable. CT/CT abdomen pelvis wo IV con IMPRESSION: A cause for the patient's right flank pain has not been found. There is no nephrolithiasis. Vascular calcifications are present in the kidneys Fleischner guidelines were followed.
[2023-05-07 13:41] VITALS: BP 132/87; PULSE 98; RESP 18; TEMP 36.4; O2SAT 99; BMI 26.0
[2023-05-07 14:09] LABS: Appearance Urine Clear; Color Urine Yellow; Glucose Urine UA Negative (Negative); Leukocyte Esterase Urine Negative (Negative); Nitrite Urine Negative (Negative); PH 6.5 (5.0-9.0); Specific Gravity - Urine 1.015 (1.005-1.025); UMIC TRIGGER UACC YES; Urine Blood Negative (Negative); Urine Ketones Negative (Negative); Urine Protein 100 (2+) mg/dL (Neg-Trace)
[2023-05-07 14:14] LABS: Bacteria Urine None Seen (None Seen); Hyaline Casts Urine 0-2 /LPF (0-2); RBC Urine 0-2 /HPF (0-2); Squamous Epithelial Cell Urine 0-2 /HPF (0-2); WBC Urine 0-5 /HPF (0-5)
[2023-05-07 14:17] LABS: IDNOW Serial# 08D9AD1C; Strep A Nucleic Acid Negative (Negative)
[2023-05-07 14:27] LABS: COVID-19 Test Negative (Negative); IDNOW Serial# BCCEAD1C
[2023-05-07 14:28] LABS: IDNOW Serial# 9DB6401D; Influenza A Negative (Negative); Influenza B2 Negative (Negative)
--- NOTE | 2023-05-07 15:34 | ED_ITS ---
HPI - Abdominal Pain General Chief Complaint: Abdominal Pain Stated Complaint: Nausea, abd pain, dizziness Time Seen by Provider: 05/07/23 18:11 Source: patient Mode of arrival: ambulatory Limitations: no limitations History of Present Illness HPI narrative: 38 yold female with pmh of anemia, DM, gastroparesis, right BKA, , anxiety presents to the ED right sided flank pain, sore throat, and headache. patient states recent UTI/Kidney infection two weeks ago in [place] and completed anbiotics. patient states no recent trauma, fever, chills, weakness, dizziness, chest pain, or shortness of breath. Patient denies any urinary/bowel incontinence. Patient denies any recent trauma. Patient states no IV drug use. Related Data Home Medications Medication Instructions Recorded Confirmed cyanocobalamin (vitamin B-12) 100 1 tab PO DAILY 02/09/21 10/04/21 mcg tablet insulin glargine 100 unit/mL (3 22 unit subcut BEDTIME 10/04/21 10/04/21 mL) subcutaneous pen insulin lispro 100 unit/mL 4 - 5 unit subcut TIDAC 10/04/21 10/04/21 subcutaneous pen naproxen 500 mg tablet 500 mg PO BID PRN Pain 10/04/21 10/04/21 omeprazole 20 mg capsule,delayed 20 mg PO DAILY 10/04/21 10/04/21 release Previous Rx's Medication Instructions Recorded dicyclomine 10 mg capsule 10 mg PO TID PRN abdominal 03/30/21 discomfort #90 caps ferrous fumarate 325 mg (106 mg 325 mg PO DAILY #30 tabs 03/30/21 iron) tablet vitamin B complex (Vitamins B 1 tab PO DAILY #30 tabs 03/30/21 Complex tablet) cyclobenzaprine 10 mg tablet 10 mg PO TID PRN muscle spasm #14 11/10/21 tabs lidocaine 5 % topical patch 1 patch topical DAILY #30 ea 11/10/21 metoclopramide HCl 10 mg tablet 10 mg PO AC PRN nausea and 02/26/22 (Reglan) vomiting #14 tabs benzonatate 100 mg capsule 100 mg PO TID PRN cough #20 caps 12/19/22 acetaminophen 325 mg capsule 325 mg PO QID PRN pain 7 days #28 05/07/23 caps cyclobenzaprine 10 mg tablet 10 mg PO TID PRN muscle spasm 7 05/07/23 days #21 tabs Allergies Allergy/AdvReac Type Severity Reaction Status Date / Time morphine [MORPHINE] Allergy Unknown HIVES Verified 07/06/21 09:55 raspberry [Raspberry] Allergy Unknown HIVES Verified 07/06/21 09:55 nitrofurantoin AdvReac Unknown GI side Verified 07/06/21 09:55 [From Macrobid] effects Review of Systems Review of Systems right flank pain Yes all other systems are reviewed and are negative [facility] Past Medical History Medical History Anxiety Chronic kidney disease Chronic pain disorder Diabetes Gastroparesis GERD without esophagitis Hordeolum externum of right eye Hypertension Iron deficiency anemia Nausea Surgical History History of right cataract surgery Hx of right BKA Family History Family History Father Hyperlipidemia Mother Stomach cancer Sister Diabetes Mental health disorder Social History Social History Housing: Apartment Alcohol intake: never Patient Tobacco Use Status: Never used Tobacco e-Cigarette/Vaping Use: Never Used Second Hand Smoke Exposure: No Substance Use Type: Marijuana Advance Directives: Yes Advance Directives on File: Yes Advance Directives Date on File: 02/09/21 service: No Current occupational status: disabled Cognitive needs: No Hearing needs: No Vision needs: Yes (annual eye exam) Physical Exam ED Vital Signs: Vital Signs - 24 hr 05/07/23 18:03 05/07/23 19:54 Temperature 98.4 F 98.3 F Pulse Rate 98 82 Respiratory Rate 20 16 Blood Pressure 198/102 H Pulse Oximetry 98 99 Oxygen Delivery Method Room Air Room Air BMI result Body Mass Index 26.0 Const General: cooperative, healthy appearing, comfortable, no acute distress, well developed and alert Orientation/consciousness: oriented to person, oriented to place, oriented to time and patient oriented x3 HENMT Head: Yes normal to inspection, Yes No palpable skull fracture present, Yes normocephalic and Yes atraumatic Eyes General: appearance normal, both eyes and all related structures Neck Neck: Yes normal visual inspection, Yes full ROM, Yes no lymphadenopathy, Yes no meningeal signs, Yes trachea midline, Yes supple, No anterior neck swelling and No tender Chest Chest palpation & inspection: normal inspection of the chest and normal palpation of entire chest wall Resp Effort & Inspection: normal respiratory effort and able to speak in complete sentences Auscultation: clear to auscultation bilaterally Cardio Jugular venous distension: no JVD Heart sounds: S1 normal heart sound present and S2 normal heart sound present GI Inspection: Yes normal to inspection Palpation (GI): Soft to palpation, not firm, nontender, no guarding and not rigid General: Yes CVA tenderness (right) Back/Spine/Pelvis Back: CVA tenderness (right) and No back tenderness Skin General skin exam: no rashes or lesions noted, elasticity normal and turgor normal Neuro General: oriented to person, oriented to place, oriented to time, patient oriented x3, tone normal, moves all extremities, Normal light touch and pain sensation, no meningeal signs, no focal motor deficits, CN's II-XI intact bilaterally and normal sensation to monofilament Extrem Other: right BKA. Left lower extremity normal Psych Appearance: grossly normal, well kempt and not disheveled Course Course Course Narrative: This is an RME: Additional HPI, ROS, PE not included below will be deferred to primary provider. Patient is a 38-year-old female who presents emergency department for evaluation nausea vomiting diarrhea headache, sore throat, cough. Onset of symptoms was yesterday. She states earlier this month she was treated for kidney infection does not recall the name of the antibiotics. She denies dysuria, urinary frequency/urgency/hesitanc Medical Decision Making Medical Decision Making MDM Narrative: 38-year-old female chronic abdominal pain, gastroparesis, and anemia, right BKA presents to ED for right flank pain, headache, sore throat without any trauma recent UTI kidney infection was shows [place] 2 weeks ago. Patient denies any recent trauma fever chills. Patient states no chest pain shortness of breath or dizziness. Initial UA SARS normal. Was sent for dry CT scan. 9;14pm: patient labs are normal and at baseline. pain resolved with pain meds. patient is safe for discharge. NO indication for blood tranfusion. patient denies any lighteadedness, rectal bleeding, vomitting blood, or coughing up blood. patient presetns to the ED for RIght flank pain. Patient states hemoglobin and hematocrit level today is similary to results in [place]. Patient has CKD. Creatine at baseline. patient left the ER before receiving discharge papers from nurse. patient also left the ER before vital signs could be re-evaluated. Differential Diagnosis Differential Diagnoses: The differential diagnosis associated with the presentation includes (UTI. Kidney stones, pyelonephritis) Admission/Observation Consideration of admission/observation: Escalation of care including admission/observation considered Lab Data MDM Lab Attestation statement: I reviewed the patient's lab results. 05/07/23 19:33 05/07/23 19:33 Labs: Lab Results 05/07/23 05/07/23 Range/Units 13:59 19:33 WBC 6.9 (4.8-10.8) X10*3/uL RBC 3.15 L (4.20-5.50) X10*6/uL Hgb 7.6 L (12.0-16.0) g/dl Hct 25.1 L (37.0-47.0) % MCV 79.7 L (80.0-98.0) fL MCH 24.1 L (27.0-33.0) pg MCHC 30.3 L (31.0-35.0) g/dl RDW 18.8 H (11.0-16.0) % Plt Count 314 (160-400) X10*3/uL MPV 8.9 L (9.4-12.3) fL Immature Gran % (Auto) 0.3 (0.0-0.4) % Neut % (Auto) 58.8 (45-73) % Lymph % (Auto) 29.3 (20-40) % [place] % (Auto) 8.6 (2-11) % Eos % (Auto) 2.3 (0-4) % Baso % (Auto) 0.7 (0-2) % Lymph # (Auto) 2.0 (1.2-4.9) X10*3/uL [place] # (Auto) 0.6 (0.1-1.2) X10*3/uL Eos # (Auto) 0.2 (0.0-0.4) X10*3/uL Baso # (Auto) 0.1 (0.0-0.2) X10*3/uL Abs Immat Gran (auto) 0.02 (0.00-0.03) X10*3/uL Absolute Neuts (auto) 4.1 (2.0-8.3) x10*3/uL Absolute Nucleated RBC 0.000 (0.0-0.012) X10*3/uL Nucleated RBC % (auto) 0.0 (0.0-0.2) /100WBC Sodium 140 (135-145) mmol/L Potassium 4.7 (3.3-5.1) mmol/L Chloride 111 H (96-108) mmol/L Carbon Dioxide 20 L (22-29) mmol/L Anion Gap 14 (12-20) BUN 16 (9-16) mg/dL Creatinine 1.72 H (0.5-1.4) mg/dL Estim Creat Clear Calc 48.1 Estimated GFR 33 Random Glucose 108 (60-115) mg/dL Calcium 9.4 (8.4-10.2) mg/dL Total Bilirubin 0.2 (0.0-1.0) mg/dL AST 21 (5-31) U/L ALT 13 (0-31) U/L Alkaline Phosphatase 95 (39-117) U/L Total Protein 7.9 (6.5-8.0) g/dL Albumin 4.1 (3.5-5.0) g/dL Lipase 53 (8-78) U/L Urine Color Yellow Urine Appearance Clear Urine pH 6.5 (5.0-9.0) Ur Specific [place] 1.015 (1.005-1.025) Urine Protein 100 (2+) H (Neg-Trace) mg/dL Urine Glucose (UA) Negative (Negative) mg/dL Urine Ketones Negative (Negative) mg/dL Urine Blood Negative (Negative) Urine Nitrite Negative (Negative) Ur Leukocyte Esterase Negative (Negative) Urine RBC 0-2 (0-2) /HPF Urine WBC 0-5 (0-5) /HPF Ur Squamous Epith Cells 0-2 (0-2) /HPF Urine Bacteria None Seen (None Seen) Hyaline Casts 0-2 (0-2) /LPF Urine Test NEGATIVE (NEGATIVE) COVID-19 (FANNIE) Negative (Negative) COVID-19 Clin Com See Note Influenza Type A (YOANDY) Negative (Negative) Influenza Type B (YOANDY) Negative (Negative) Influenza A & B Note See Note S. pyogenes GrpA YOANDY Negative (Negative) Independent Interpretation I performed an independent interpretation of an: CT Scan Radiology Impression Discussion of test interpretation with radiology: I have reviewed the radiologist's reading. External Record Review External record reviewed: Other (Prior Visits. ) Prescription Management I considered prescription management with: Pain Medication Medications Administered Discontinued Medications Generic Name Dose Route Start Last Admin Trade Name Freq PRN Reason Stop Dose Admin Hydromorphone HCl 1 mg 05/07/23 18:28 05/07/23 19:12 Hydromorphone Hcl 1 Mg/Ml Syringe IM 05/07/23 18:29 1 mg ONCE ONE Administration Protocol Hydromorphone HCl 0.5 mg 05/07/23 20:13 05/07/23 20:43 Hydromorphone Hcl 0.5 Mg/0.5 Ml Syringe IM 05/07/23 20:14 0.5 mg ONCE ONE Administration Protocol Discharge Plan Discharge Clinical Impression: Right flank pain, Anemia Patient Disposition: Home, Self-Care Instructions: Upper Respiratory Infection (ED), Flank Pain (ED), Anemia (ED) Additional Instructions: the ED immediately for any abdominal pain, nausea, vomiting, flank pain, fever, chills, weakness, dizziness, rectal bleeding, vomiting blood, bloody urine, coughing up blood, urinary/ bowel incontinence, or any other concerning symptoms. Plesae follow up with PCP. Prescriptions: New acetaminophen 325 mg capsule 325 mg PO QID PRN (Reason: pain) 7 Days Qty: 28 0RF cyclobenzaprine 10 mg tablet 10 mg PO TID PRN (Reason: muscle spasm) 7 Days Qty: 21 0RF Rx Instructions: side effect is drowsiness. No Action omeprazole 20 mg capsule,delayed release(DR/EC) 20 mg PO DAILY naproxen 500 mg tablet 500 mg PO BID PRN (Reason: Pain) insulin lispro 100 unit/mL insulin pen 4 - 5 unit subcut TIDAC insulin glargine 100 unit/mL (3 mL) insulin pen 22 unit subcut BEDTIME metoclopramide HCl [Reglan] 10 mg tablet 10 mg PO AC PRN (Reason: nausea and vomiting) Qty: 14 0RF cyanocobalamin (vitamin B-12) 100 mcg tablet 1 tab PO DAILY cyclobenzaprine 10 mg tablet 10 mg PO TID PRN (Reason: muscle spasm) Qty: 14 0RF lidocaine 5 % adhesive patch,medicated 1 patch topical DAILY Qty: 30 0RF Rx Instructions: leave on most painful area for up to 12 hrs benzonatate 100 mg capsule 100 mg PO TID PRN (Reason: cough) Qty: 20 0RF ferrous fumarate 325 mg (106 mg iron) tablet 325 mg PO DAILY Qty: 30 1RF vitamin B complex [Vitamins B Complex] Tablet 1 tab PO DAILY Qty: 30 0RF dicyclomine 10 mg capsule 10 mg PO TID PRN (Reason: abdominal discomfort) Qty: 90 0RF Interventions: ED Discharge Assessment Last Done: 05/07/23 22:05 Discharge Date/Time: 05/07/23 22:38 Print Language: Fijian
[2023-05-07 18:03] VITALS: PULSE 98; RESP 20; TEMP 36.9; O2SAT 98
[2023-05-07 18:43] LABS: UPreg QC Valid YES; Urine Pregnancy NEGATIVE (NEGATIVE)
[2023-05-07] MEDS: HYDROmorphone HCl 1 MG/ML SYRINGE IM (19:12)
[2023-05-07 19:39] LABS: MANUAL DIFF FLAG NO
[2023-05-07 19:41] LABS: Basophils Absolute Auto 0.1 X10*3/uL (0.0-0.2); Basophils Percent Auto 0.7 % (0-2); Eosinophils Absolute Auto 0.2 X10*3/uL (0.0-0.4); Eosinophils Percent Auto 2.3 % (0-4); Hematocrit 25.1 % (37.0-47.0); Hemoglobin 7.6 g/dl (12.0-16.0); Imm Gran Abs Auto 0.02 X10*3/uL (0.00-0.03); Imm Gran Pct Auto 0.3 % (0.0-0.4); Lymphocytes Percent Auto 29.3 % (20-40); Mean Corpuscular HGB Conc 30.3 g/dl (31.0-35.0); Mean Corpuscular Hemoglobin 24.1 pg (27.0-33.0); Mean Corpuscular Volume 79.7 fL (80.0-98.0); Mean Platelet Volume 8.9 fL (9.4-12.3); Monocytes Absolute Auto 0.6 X10*3/uL (0.1-1.2); Monocytes Percent Auto 8.6 % (2-11); Neutrophils Absolute Auto 4.1 x10*3/uL (2.0-8.3); Neutrophils Percent Auto 58.8 % (45-73); Platelet Count 314 X10*3/uL (160-400); Red Blood Count 3.15 X10*6/uL (4.20-5.50); Red Cell Distribution Width 18.8 % (11.0-16.0); White Blood Count 6.9 X10*3/uL (4.8-10.8)
[2023-05-07 19:53] LABS: Lipase 53 U/L (8-78)
[2023-05-07 19:54] VITALS: BP 198/102; PULSE 82; RESP 16; TEMP 36.8; O2SAT 99
[2023-05-07 19:56] LABS: Alanine Aminotransferase 13 U/L (0-31); Albumin Level 4.1 g/dL (3.5-5.0); Alkaline Phosphatase 95 U/L (39-117); Anion Gap 14 (12-20); Aspartate Amino Transferase 21 U/L (5-31); Bilirubin Total 0.2 mg/dL (0.0-1.0); Blood Urea Nitrogen 16 mg/dL (9-16); Calcium 9.4 mg/dL (8.4-10.2); Carbon Dioxide 20 mmol/L (22-29); Chloride 111 mmol/L (96-108); Creatinine Clr Calc Pharmacy 48.1; Estimated Glomerular Filt Rate 33; Glucose Random 108 mg/dL (60-115); Potassium 4.7 mmol/L (3.3-5.1); Sodium 140 mmol/L (135-145); Total Protein 7.9 g/dL (6.5-8.0)
[2023-05-07] MEDS: HYDROmorphone HCl 0.5 MG/0.5 ML SYRINGE IM (20:43)
--- NOTE | 2023-05-07 22:05 | PC.NURSE ---
pt left without discharge vitals and discharge papers. provider aware.
== END 2023-05-07 22:38 | disposition home or self-care (01) ==
PROVIDERS: Nurse Practitioner Family; Physician Assistant; Emergency Provider Emergency Medicine
DX: R10.9 Unspecified abdominal pain (principal); D64.9 Anemia, unspecified; E11.22 Type 2 diabetes mellitus with diabetic chronic kidney disease; I12.9 Hypertensive chronic kidney disease with stage 1 through stage 4 chronic kidney disease, or unspecified chronic kidney disease; N18.9 Chronic kidney disease, unspecified; Z89.511 Acquired absence of right leg below knee; Z11.52 Encounter for screening for COVID-19
CPT/HCPCS: 36415; 74176; 80053; 81001; 81025; 83690; 85025; 87502; 87635; 87651; 96372; 99284; J1170

== ENCOUNTER 2023-07-09 23:27 | Emergency (ER) | payer OTHER, SELFPAY ==
--- NOTE | ~2023-07-09 | XR_ITS ---
EXAMINATION: XR CHEST CLINICAL INFORMATION: Pain. COMPARISON: 12/19/2022. TECHNIQUE: 2 views of the chest were obtained. FINDINGS: No significant abnormality is noted involving the heart, lungs, mediastinum, bony thorax or soft tissues. XR/XR chest 2V IMPRESSION: Unremarkable examination.
[2023-07-09 23:48] VITALS: BP 128/80; PULSE 86; RESP 16; TEMP 36; O2SAT 98; BMI 24.0
--- NOTE | 2023-07-10 00:26 | ED.GENADULT ---
HPI - General Adult General Chief complaint: Nausea/Vomiting/Diarrhea Stated complaint: Unable to eat or drink, kidney pain Time Seen by Provider: 07/10/23 00:09 Source: patient, RN notes reviewed and old records reviewed Mode of arrival: ambulatory Limitations: no limitations History of Present Illness HPI narrative: 38-year-old female with past medical history significant for diabetes, gastroparesis, right BKA presents for evaluation of cough, nausea, congestion right mid back pain, chills. She reports decreased appetite over the last few days She endorses some vomiting Denies any severe abdominal pain but does complain of right mid/upper back pain This pain is worse with movement or coughing She denies any known sick contacts Denies any chest pain She also complains of a sore throat Related Data Home Medications Medication Instructions Recorded Confirmed cyanocobalamin (vitamin B-12) 100 1 tab PO DAILY 02/09/21 10/04/21 mcg tablet insulin glargine 100 unit/mL (3 22 unit subcut BEDTIME 10/04/21 10/04/21 mL) subcutaneous pen insulin lispro 100 unit/mL 4 - 5 unit subcut TIDAC 10/04/21 10/04/21 subcutaneous pen naproxen 500 mg tablet 500 mg PO BID PRN Pain 10/04/21 10/04/21 omeprazole 20 mg capsule,delayed 20 mg PO DAILY 10/04/21 10/04/21 release Previous Rx's Medication Instructions Recorded dicyclomine 10 mg capsule 10 mg PO TID PRN abdominal 03/30/21 discomfort #90 caps ferrous fumarate 325 mg (106 mg 325 mg PO DAILY #30 tabs 03/30/21 iron) tablet vitamin B complex (Vitamins B 1 tab PO DAILY #30 tabs 03/30/21 Complex tablet) cyclobenzaprine 10 mg tablet 10 mg PO TID PRN muscle spasm #14 11/10/21 tabs lidocaine 5 % topical patch 1 patch topical DAILY #30 ea 11/10/21 metoclopramide HCl 10 mg tablet 10 mg PO AC PRN nausea and 02/26/22 (Reglan) vomiting #14 tabs benzonatate 100 mg capsule 100 mg PO TID PRN cough #20 caps 12/19/22 acetaminophen 325 mg capsule 325 mg PO QID PRN pain 7 days #28 05/07/23 caps cyclobenzaprine 10 mg tablet 10 mg PO TID PRN muscle spasm 7 05/07/23 days #21 tabs cyclobenzaprine 10 mg tablet 10 mg PO TID PRN muscle spasm #15 07/10/23 tabs ondansetron 4 mg disintegrating 4 mg PO Q8H PRN nausea and 07/10/23 tablet vomiting #20 tabs Allergies Allergy/AdvReac Type Severity Reaction Status Date / Time morphine [MORPHINE] Allergy Unknown HIVES Verified 07/09/23 23:48 raspberry [Raspberry] Allergy Unknown HIVES Verified 07/09/23 23:48 nitrofurantoin AdvReac Unknown GI side Verified 07/09/23 23:48 [From Macrobid] effects Review of Systems Constitutional: Constitutional: Denies chills, Denies fever(s), Reports headache(s), Reports malaise, Reports poor appetite and Reports weakness Eyes: Eyes: Denies blurry vision ENT: Reports headache(s), Denies sinus pressure and Reports sore throat Cardiovascular: Cardiovascular: Denies chest pain and Denies dyspnea Respiratory: Respiratory: Reports cough and Denies dyspnea Gastrointestinal: Gastrointestinal: Denies abdominal pain, Reports nausea and Reports vomiting Musculoskeletal: Musculoskeletal: Reports back pain Integumentary/Breasts: Skin/Breast: Denies rash Neurologic: Reports headache(s) and Reports weakness PMFSH Past Medical History Medical History Anxiety Chronic kidney disease Chronic pain disorder Diabetes Gastroparesis GERD without esophagitis Hordeolum externum of right eye Hypertension Iron deficiency anemia Nausea Surgical History History of right cataract surgery Hx of right BKA Family History Family History Father Hyperlipidemia Mother Stomach cancer Sister Diabetes Mental health disorder Social History Social History Housing: Apartment Alcohol intake: never Patient Tobacco Use Status: Never used Tobacco e-Cigarette/Vaping Use: Never Used Second Hand Smoke Exposure: No Substance Use Type: Marijuana Advance Directives: Yes Advance Directives on File: Yes Advance Directives Date on File: 02/09/21 service: No Current occupational status: disabled Cognitive needs: No Hearing needs: No Vision needs: Yes (annual eye exam) Physical Exam ED Vital Signs: Vital Signs - 24 hr 07/09/23 23:48 Temperature 96.8 F Pulse Rate 86 Respiratory Rate 16 Blood Pressure 128/80 Pulse Oximetry 98 Oxygen Delivery Method Room Air BMI result Body Mass Index 24.0 Const General: healthy appearing, comfortable, no acute distress, alert and awake Nutritional Appearance: well nourished Orientation/consciousness: patient oriented x3 HENMT Head: Yes normocephalic and Yes atraumatic Throat: Yes posterior oropharynx normal Eyes Eyelids: Yes eyelids normal Conjunctivae: conjunctivae normal Sclerae: sclerae normal Corneas: corneas normal Pupils: Equal, round and reactive pupils present EOM: EOMs intact bilaterally Neck Neck: Yes full ROM Resp Effort & Inspection: normal respiratory effort, able to speak in complete sentences, no audible wheezes and not labored Auscultation: clear to auscultation bilaterally Cardio Rate: regular rate Rhythm: regular rhythm GI Inspection: No distended Palpation (GI): Soft to palpation, not firm, nontender, no guarding and not rigid Back/Spine/Pelvis Other: Right thoracic paraspinous region muscle tenderness. No vertebral tenderness, no step-offs or deformities. Skin General skin exam: elasticity normal Neuro General: patient oriented x3 Cranial nerves: Yes Equal, round and reactive pupils present and Yes Bilaterally intact EOM present Cognition (Neuro): normal cognition Extrem Other: Moving all extremities well without any obvious deformities Course Reevaluation(s) Reevaluation #1: Patient reports she has no longer having any abdominal pain or nausea after GI cocktail. She states that she is still having some right upper back pain despite the tramadol. Will discharge the patient with Zofran for her nausea as well as cyclobenzaprine for muscle relaxer. She is comfortable with this plan and will follow with her doctor Time: 01:14 Medications Administered Discontinued Medications Generic Name Dose Route Start Last Admin Trade Name Freq PRN Reason Stop Dose Admin Al Hydroxide/Mg Hydroxide 30 ml 07/10/23 00:12 07/10/23 00:46 Magnesium Hydrox/Alum Hydrox 30 Ml Oral.Susp PO 07/10/23 00:13 30 ml ONCE ONE Administration Lidocaine HCl 15 ml 07/10/23 00:12 07/10/23 00:46 Lidocaine Hcl Viscous 2 % 15 Ml Solution MUCOUS MEM 07/10/23 00:13 15 ml ONCE ONE Administration Ondansetron HCl 4 mg 07/10/23 00:12 07/10/23 00:46 Ondansetron Odt 4 Mg Tab.Scott DEEU 07/10/23 00:13 4 mg ONCE ONE Administration Medical Decision Making Medical Decision Making [facility] Narrative: 38-year-old female presents for evaluation of flu-like symptoms. Her physical exam is reassuring, she does have some right upper thoracic paraspinous region tenderness. No abdominal tenderness, lungs are clear to auscultation. Plan for viral swabs and chest x-ray. She complains of GERD, we will treat with GI cocktail. Given the reassuring exam and stable vital signs, less likely surgical abdomen. Differential Diagnosis Differential Diagnoses: The differential diagnosis associated with the presentation includes Influenza COVID-19 Pharyngitis Strep pharyngitis Upper respiratory infection GERD Muscle strain Pneumonia Lab Data Labs: Lab Results 07/10/23 Range/Units 00:11 Influenza Type A (PCR) NEGATIVE (Negative) Influenza Type B (PCR) NEGATIVE (Negative) RSV RNA Qual (PCR) NEGATIVE (Negative) SARS-CoV-2 RNA (RT-PCR) NEGATIVE (Negative) Discharge Plan Discharge Clinical Impression: Back pain Patient Disposition: Home, Self-Care Instructions: Back Pain (ED) Additional Instructions: Your chest x-ray was clear. You did not have the flu, COVID-19, or RSV Take Zofran as needed for any further nausea Use cyclobenzaprine and Tylenol as needed for back pain Cyclobenzaprine may make you sleepy, did not drink alcohol or drive after taking it Return for new or worsening symptoms Prescriptions: New cyclobenzaprine 10 mg tablet 10 mg PO TID PRN (Reason: muscle spasm) Qty: 15 0RF ondansetron 4 mg tablet,disintegrating 4 mg PO Q8H PRN (Reason: nausea and vomiting) Qty: 20 0RF No Action omeprazole 20 mg capsule,delayed release(DR/EC) 20 mg PO DAILY naproxen 500 mg tablet 500 mg PO BID PRN (Reason: Pain) insulin lispro 100 unit/mL insulin pen 4 - 5 unit subcut TIDAC insulin glargine 100 unit/mL (3 mL) insulin pen 22 unit subcut BEDTIME metoclopramide HCl [Reglan] 10 mg tablet 10 mg PO AC PRN (Reason: nausea and vomiting) Qty: 14 0RF cyanocobalamin (vitamin B-12) 100 mcg tablet 1 tab PO DAILY cyclobenzaprine 10 mg tablet 10 mg PO TID PRN (Reason: muscle spasm) Qty: 14 0RF lidocaine 5 % adhesive patch,medicated 1 patch topical DAILY Qty: 30 0RF Rx Instructions: leave on most painful area for up to 12 hrs benzonatate 100 mg capsule 100 mg PO TID PRN (Reason: cough) Qty: 20 0RF acetaminophen 325 mg capsule 325 mg PO QID PRN (Reason: pain) 7 Days Qty: 28 0RF cyclobenzaprine 10 mg tablet 10 mg PO TID PRN (Reason: muscle spasm) 7 Days Qty: 21 0RF Rx Instructions: side effect is drowsiness. ferrous fumarate 325 mg (106 mg iron) tablet 325 mg PO DAILY Qty: 30 1RF vitamin B complex [Vitamins B Complex] Tablet 1 tab PO DAILY Qty: 30 0RF dicyclomine 10 mg capsule 10 mg PO TID PRN (Reason: abdominal discomfort) Qty: 90 0RF Stand Alone Forms: Work/School Release
[2023-07-10] MEDS: Lidocaine HCl Viscous 2 % 15 ML SOLUTION MUCOUS MEM (00:46)
[2023-07-10] MEDS: Ondansetron ODT 4 MG TAB.RAPDIS TRANSLINGU (00:46)
[2023-07-10] MEDS: Magnesium Hydrox/Alum Hydrox 30 ML ORAL.SUSP PO (00:46)
[2023-07-10 00:52] LABS: Influenza A PCR NEGATIVE (Negative); Influenza B PCR NEGATIVE (Negative); Resp Syncy Virus RNA Qual PCR NEGATIVE (Negative); SARS COV2 PCR INHOUSE NEGATIVE (Negative)
[2023-07-10] MEDS: traMADoL HCL 50 MG TABLET PO (01:23)
== END 2023-07-10 01:27 | disposition home or self-care (01) ==
PROVIDERS: Emergency Provider Emergency Medicine
DX: M54.6 Pain in thoracic spine (principal); E11.22 Type 2 diabetes mellitus with diabetic chronic kidney disease; I12.9 Hypertensive chronic kidney disease with stage 1 through stage 4 chronic kidney disease, or unspecified chronic kidney disease; N18.9 Chronic kidney disease, unspecified; Z89.511 Acquired absence of right leg below knee; Z11.52 Encounter for screening for COVID-19; Z20.828 Contact with and (suspected) exposure to other viral communicable diseases
CPT/HCPCS: 0241U; 71046; 99284

== ENCOUNTER 2023-09-15 10:00 | Emergency (ER) | payer OTHER, SELFPAY ==
[2023-09-15 10:04] VITALS: BP 103/56; PULSE 84; RESP 18; TEMP 36.1; O2SAT 99; BMI 23.6
[2023-09-15 10:21] LABS: MANUAL DIFF FLAG NO
[2023-09-15 10:24] LABS: Basophils Absolute Auto 0.1 X10*3/uL (0.0-0.2); Basophils Percent Auto 0.9 % (0-2); Eosinophils Absolute Auto 0.2 X10*3/uL (0.0-0.4); Eosinophils Percent Auto 3.2 % (0-4); Hematocrit 28.2 % (37.0-47.0); Hemoglobin 8.6 g/dl (12.0-16.0); Imm Gran Abs Auto 0.02 X10*3/uL (0.00-0.03); Imm Gran Pct Auto 0.3 % (0.0-0.4); Lymphocytes Percent Auto 26.2 % (20-40); Mean Corpuscular HGB Conc 30.5 g/dl (31.0-35.0); Mean Corpuscular Hemoglobin 24.6 pg (27.0-33.0); Mean Corpuscular Volume 80.8 fL (80.0-98.0); Mean Platelet Volume 9.2 fL (9.4-12.3); Monocytes Absolute Auto 0.6 X10*3/uL (0.1-1.2); Monocytes Percent Auto 7.3 % (2-11); Neutrophils Absolute Auto 4.7 x10*3/uL (2.0-8.3); Neutrophils Percent Auto 62.1 % (45-73); Platelet Count 325 X10*3/uL (160-400); Red Blood Count 3.49 X10*6/uL (4.20-5.50); Red Cell Distribution Width 18.8 % (11.0-16.0); White Blood Count 7.5 X10*3/uL (4.8-10.8)
[2023-09-15 10:26] LABS: Appearance Urine Clear; Color Urine Yellow; Glucose Urine UA Negative (Negative); Leukocyte Esterase Urine Trace (Negative); Nitrite Urine Negative (Negative); PH 6.5 (5.0-9.0); Specific Gravity - Urine 1.015 (1.005-1.025); UMIC TRIGGER UACC YES; Urine Blood Negative (Negative); Urine Ketones Negative (Negative); Urine Protein Trace mg/dL (Neg-Trace)
[2023-09-15 10:28] LABS: UPreg QC Valid YES; Urine Pregnancy NEGATIVE (NEGATIVE)
[2023-09-15 10:31] LABS: Bacteria Urine 1+ (None Seen); Hyaline Casts Urine 0-2 /LPF (0-2); RBC Urine 0-2 /HPF (0-2); WBC Urine 0-5 /HPF (0-5)
[2023-09-15 10:40] LABS: Alanine Aminotransferase 23 U/L (0-31); Albumin Level 4.2 g/dL (3.5-5.0); Alkaline Phosphatase 98 U/L (39-117); Anion Gap 14 (12-20); Aspartate Amino Transferase 29 U/L (5-31); Bilirubin Direct 0.1 mg/dL (0.0-0.5); Bilirubin Total 0.3 mg/dL (0.0-1.0); Blood Urea Nitrogen 21 mg/dL (9-16); Calcium 9.2 mg/dL (8.4-10.2); Carbon Dioxide 17 mmol/L (22-29); Chloride 109 mmol/L (96-108); Creatinine Clr Calc Pharmacy 41.6; Estimated Glomerular Filt Rate 31; Glucose Random 142 mg/dL (60-115); Lipase 57 U/L (8-78); Potassium 5.1 mmol/L (3.3-5.1); Sodium 135 mmol/L (135-145); Total Protein 8.1 g/dL (6.5-8.0)
--- NOTE | 2023-09-15 14:29 | ED_ITS ---
HPI - Female Genitourinary General Chief complaint: Urogenital-Female Stated complaint: kidney pain Related Data Home Medications ?Medication ?Instructions ?Recorded ?Confirmed cyanocobalamin (vitamin B-12) 100 1 tab PO DAILY 02/09/21 10/04/21 mcg tablet naproxen 500 mg tablet 500 mg PO BID PRN Pain 10/04/21 10/04/21 omeprazole 20 mg capsule,delayed 20 mg PO DAILY 10/04/21 10/04/21 release Previous Rx's ?Medication ?Instructions ?Recorded dicyclomine 10 mg capsule 10 mg PO TID PRN abdominal 03/30/21 discomfort #90 caps ferrous fumarate 325 mg (106 mg 325 mg PO DAILY #30 tabs 03/30/21 iron) tablet vitamin B complex (Vitamins B 1 tab PO DAILY #30 tabs 03/30/21 Complex tablet) cyclobenzaprine 10 mg tablet 10 mg PO TID PRN muscle spasm #14 11/10/21 tabs lidocaine 5 % topical patch 1 patch topical DAILY #30 ea 11/10/21 metoclopramide HCl 10 mg tablet 10 mg PO AC PRN nausea and 02/26/22 (Reglan) vomiting #14 tabs benzonatate 100 mg capsule 100 mg PO TID PRN cough #20 caps 12/19/22 acetaminophen 325 mg capsule 325 mg PO QID PRN pain 7 days #28 05/07/23 caps cyclobenzaprine 10 mg tablet 10 mg PO TID PRN muscle spasm 7 05/07/23 days #21 tabs cyclobenzaprine 10 mg tablet 10 mg PO TID PRN muscle spasm #15 07/10/23 tabs ondansetron 4 mg disintegrating 4 mg PO Q8H PRN nausea and 07/10/23 tablet vomiting #20 tabs insulin glargine 100 unit/mL (3 22 unit (0.22 mL) subcut BEDTIME 08/10/23 mL) subcutaneous pen 30 days #15 mL insulin lispro 100 unit/mL 4 - 5 unit (0.04 - 0.05 mL) subcut 08/10/23 subcutaneous pen TIDAC 30 days #15 mL pen needle, diabetic 32 gauge x #100 ea 08/10/23 (BD Rylee 2nd Gen Pen Needle) ondansetron 4 mg disintegrating 4 mg PO Q6-8H PRN nausea and 09/17/23 tablet vomiting #20 tabs oxycodone 5 mg tablet 5 mg PO Q6H PRN pain #20 tabs 09/17/23 Allergies Allergy/AdvReac Type Severity Reaction Status Date / Time morphine [MORPHINE] Allergy Unknown HIVES Verified 09/17/23 02:25 raspberry [Raspberry] Allergy Unknown HIVES Verified 09/17/23 02:25 nitrofurantoin AdvReac Unknown GI side Verified 09/17/23 02:25 [From Macrobid] effects PMFSH Past Medical History Medical History Anxiety Chronic kidney disease Chronic pain disorder Diabetes Gastroparesis GERD without esophagitis Hordeolum externum of right eye Hypertension Iron deficiency anemia Nausea Surgical History History of right cataract surgery Hx of right BKA Family History Family History Father Hyperlipidemia Mother Stomach cancer Sister Diabetes Mental health disorder Social History Social History Housing: Apartment Alcohol intake: never Patient Tobacco Use Status: Never used Tobacco e-Cigarette/Vaping Use: Never Used Second Hand Smoke Exposure: No Substance Use Type: Marijuana Advance Directives: Yes Advance Directives on File: Yes Advance Directives Date on File: 02/09/21 service: No Current occupational status: disabled Cognitive needs: No Hearing needs: No Vision needs: Yes (annual eye exam) Physical Exam 2 Vital Signs: Vital Signs: Last Vital Signs Temp 97 F 09/15/23 10:04 Pulse 84 09/15/23 10:04 Resp 18 09/15/23 10:04 BP 103/56 L 09/15/23 10:04 Pulse Ox 99 09/15/23 10:04 O2 Del Method Room Air 09/15/23 10:04 BMI result Body Mass Index 23.6 Medical Decision Making Lab Data 09/15/23 10:17 09/15/23 10:17 Labs: Lab Results 09/15/23 09/15/23 Range/Units 10:12 10:17 WBC 7.5 (4.8-10.8) X10*3/uL RBC 3.49 L (4.20-5.50) X10*6/uL Hgb 8.6 L (12.0-16.0) g/dl Hct 28.2 L (37.0-47.0) % MCV 80.8 (80.0-98.0) fL MCH 24.6 L (27.0-33.0) pg MCHC 30.5 L (31.0-35.0) g/dl RDW 18.8 H (11.0-16.0) % Plt Count 325 (160-400) X10*3/uL MPV 9.2 L (9.4-12.3) fL Immature Gran % (Auto) 0.3 (0.0-0.4) % Neut % (Auto) 62.1 (45-73) % Lymph % (Auto) 26.2 (20-40) % Long % (Auto) 7.3 (2-11) % Eos % (Auto) 3.2 (0-4) % Baso % (Auto) 0.9 (0-2) % Lymph # (Auto) 2.0 (1.2-4.9) X10*3/uL Long # (Auto) 0.6 (0.1-1.2) X10*3/uL Eos # (Auto) 0.2 (0.0-0.4) X10*3/uL Baso # (Auto) 0.1 (0.0-0.2) X10*3/uL Abs Immat Gran (auto) 0.02 (0.00-0.03) X10*3/uL Absolute Neuts (auto) 4.7 (2.0-8.3) x10*3/uL Absolute Nucleated RBC 0.000 (0.0-0.012) X10*3/uL Nucleated RBC % (auto) 0.0 (0.0-0.2) /100WBC Sodium 135 (135-145) mmol/L Potassium 5.1 (3.3-5.1) mmol/L Chloride 109 H (96-108) mmol/L Carbon Dioxide 17 L (22-29) mmol/L Anion Gap 14 (12-20) BUN 21 H (9-16) mg/dL Creatinine 1.83 H (0.5-1.4) mg/dL Estim Creat Clear Calc 41.6 Estimated GFR 31 Random Glucose 142 H (60-115) mg/dL Calcium 9.2 (8.4-10.2) mg/dL Total Bilirubin 0.3 (0.0-1.0) mg/dL Direct Bilirubin 0.1 (0.0-0.5) mg/dL AST 29 (5-31) U/L ALT 23 (0-31) U/L Alkaline Phosphatase 98 (39-117) U/L Total Protein 8.1 H (6.5-8.0) g/dL Albumin 4.2 (3.5-5.0) g/dL Lipase 57 (8-78) U/L Urine Color Yellow Urine Appearance Clear Urine pH 6.5 (5.0-9.0) Ur Specific [place] 1.015 (1.005-1.025) Urine Protein Trace (Neg-Trace) mg/dL Urine Glucose (UA) Negative (Negative) mg/dL Urine Ketones Negative (Negative) mg/dL Urine Blood Negative (Negative) Urine Nitrite Negative (Negative) Ur Leukocyte Esterase Trace H (Negative) Urine RBC 0-2 (0-2) /HPF Urine WBC 0-5 (0-5) /HPF Ur Squamous Epith Cells 6-10 (0-2) /HPF Urine Bacteria 1+ (None Seen) Hyaline Casts 0-2 (0-2) /LPF Urine Test NEGATIVE (NEGATIVE) Discharge Plan Discharge Clinical Impression: Flank pain Patient Disposition: Left Without Being Seen Interventions: LWBS Worksheet Last Done: 09/15/23 15:50 Discharge Date/Time: 09/15/23 15:51
--- NOTE | 2023-09-15 15:43 | PC.NURSE ---
patient called to triage multiple times, WR checked and patient is no longer in ED
== END 2023-09-15 15:51 | disposition left against medical advice (07) ==
PROVIDERS: Emergency Provider Emergency Medicine; PCP Physician Assistant
DX: R10.9 Unspecified abdominal pain (principal); E11.22 Type 2 diabetes mellitus with diabetic chronic kidney disease; I12.9 Hypertensive chronic kidney disease with stage 1 through stage 4 chronic kidney disease, or unspecified chronic kidney disease; N18.9 Chronic kidney disease, unspecified
CPT/HCPCS: 36415; 80048; 80076; 81001; 81025; 83690; 85025; 99282; 99283

== ENCOUNTER 2023-09-17 02:20 | Emergency (ER) | payer OTHER, SELFPAY ==
[2023-09-17 02:23] VITALS: BP 155/103; PULSE 117; RESP 18; TEMP 36.6; O2SAT 100; BMI 25.2
[2023-09-17 02:50] LABS: Basophils Absolute Auto 0.1 X10*3/uL (0.0-0.2); Basophils Percent Auto 0.6 % (0-2); Eosinophils Percent Auto 0.3 % (0-4); Hematocrit 27.8 % (37.0-47.0); Hemoglobin 8.8 g/dl (12.0-16.0); Imm Gran Abs Auto 0.03 X10*3/uL (0.00-0.03); Imm Gran Pct Auto 0.3 % (0.0-0.4); Lymphocytes Absolute Auto 1.8 X10*3/uL (1.2-4.9); Lymphocytes Percent Auto 15.4 % (20-40); MANUAL DIFF FLAG NO; Mean Corpuscular HGB Conc 31.7 g/dl (31.0-35.0); Mean Corpuscular Hemoglobin 25.2 pg (27.0-33.0); Mean Corpuscular Volume 79.7 fL (80.0-98.0); Mean Platelet Volume 9.4 fL (9.4-12.3); Monocytes Absolute Auto 1.2 X10*3/uL (0.1-1.2); Neutrophils Absolute Auto 8.7 x10*3/uL (2.0-8.3); Neutrophils Percent Auto 73.4 % (45-73); Platelet Count 383 X10*3/uL (160-400); Red Blood Count 3.49 X10*6/uL (4.20-5.50); Red Cell Distribution Width 18.8 % (11.0-16.0); White Blood Count 11.8 X10*3/uL (4.8-10.8)
[2023-09-17 02:52] LABS: Appearance Urine Clear; Color Urine Yellow; Glucose Urine UA Negative (Negative); Leukocyte Esterase Urine Negative (Negative); Nitrite Urine Negative (Negative); Specific Gravity - Urine 1.015 (1.005-1.025); UMIC TRIGGER UACC YES; Urine Blood Negative (Negative); Urine Ketones Trace mg/dL (Negative); Urine Protein 100 (2+) mg/dL (Neg-Trace)
[2023-09-17 02:57] LABS: UPreg QC Valid YES; Urine Pregnancy NEGATIVE (NEGATIVE)
--- NOTE | 2023-09-17 03:00 | ED_ITS ---
HPI - Female Genitourinary General Chief complaint: Urogenital-Female Stated complaint: kidney failure Time Seen by Provider: 09/17/23 03:00 Source: patient Mode of arrival: ambulatory Limitations: no limitations History of Present Illness HPI Narrative: Patient has CKD chronic pain syndrome anxiety right VILMA comes here frequently for pain in the flank area had multiple CT scan in done in the past was seen here on 09/14 and was at [facility] last night for the same no fever no chills Related Data Home Medications ?Medication ?Instructions ?Recorded ?Confirmed cyanocobalamin (vitamin B-12) 100 1 tab PO DAILY 02/09/21 10/04/21 mcg tablet naproxen 500 mg tablet 500 mg PO BID PRN Pain 10/04/21 10/04/21 omeprazole 20 mg capsule,delayed 20 mg PO DAILY 10/04/21 10/04/21 release Previous Rx's ?Medication ?Instructions ?Recorded dicyclomine 10 mg capsule 10 mg PO TID PRN abdominal 03/30/21 discomfort #90 caps ferrous fumarate 325 mg (106 mg 325 mg PO DAILY #30 tabs 03/30/21 iron) tablet vitamin B complex (Vitamins B 1 tab PO DAILY #30 tabs 03/30/21 Complex tablet) cyclobenzaprine 10 mg tablet 10 mg PO TID PRN muscle spasm #14 11/10/21 tabs lidocaine 5 % topical patch 1 patch topical DAILY #30 ea 11/10/21 metoclopramide HCl 10 mg tablet 10 mg PO AC PRN nausea and 02/26/22 (Reglan) vomiting #14 tabs benzonatate 100 mg capsule 100 mg PO TID PRN cough #20 caps 12/19/22 acetaminophen 325 mg capsule 325 mg PO QID PRN pain 7 days #28 05/07/23 caps cyclobenzaprine 10 mg tablet 10 mg PO TID PRN muscle spasm 7 05/07/23 days #21 tabs cyclobenzaprine 10 mg tablet 10 mg PO TID PRN muscle spasm #15 07/10/23 tabs ondansetron 4 mg disintegrating 4 mg PO Q8H PRN nausea and 07/10/23 tablet vomiting #20 tabs insulin glargine 100 unit/mL (3 22 unit (0.22 mL) subcut BEDTIME 08/10/23 mL) subcutaneous pen 30 days #15 mL insulin lispro 100 unit/mL 4 - 5 unit (0.04 - 0.05 mL) subcut 08/10/23 subcutaneous pen TIDAC 30 days #15 mL pen needle, diabetic 32 gauge x #100 ea 08/10/23 (BD Rylee 2nd Gen Pen Needle) ondansetron 4 mg disintegrating 4 mg PO Q6-8H PRN nausea and 09/17/23 tablet vomiting #20 tabs oxycodone 5 mg tablet 5 mg PO Q6H PRN pain #20 tabs 09/17/23 Allergies Allergy/AdvReac Type Severity Reaction Status Date / Time morphine [MORPHINE] Allergy Unknown HIVES Verified 09/17/23 02:25 raspberry [Raspberry] Allergy Unknown HIVES Verified 09/17/23 02:25 nitrofurantoin AdvReac Unknown GI side Verified 09/17/23 02:25 [From Macrobid] effects Review of Systems 2 Review of Systems: Yes all other systems are reviewed and are negative [facility] Past Medical History Medical History Anxiety Chronic kidney disease Chronic pain disorder Diabetes Gastroparesis GERD without esophagitis Hordeolum externum of right eye Hypertension Iron deficiency anemia Nausea Surgical History History of right cataract surgery Hx of right BKA Family History Family History Father Hyperlipidemia Mother Stomach cancer Sister Diabetes Mental health disorder Social History Social History Housing: Apartment Alcohol intake: never Patient Tobacco Use Status: Never used Tobacco e-Cigarette/Vaping Use: Never Used Second Hand Smoke Exposure: No Substance Use Type: Marijuana Advance Directives: Yes Advance Directives on File: Yes Advance Directives Date on File: 02/09/21 service: No Current occupational status: disabled Cognitive needs: No Hearing needs: No Vision needs: Yes (annual eye exam) Physical Exam 2 Vital Signs: Vital Signs: Last Vital Signs Temp 97.9 F 09/17/23 02:23 Pulse 117 H 09/17/23 02:23 Resp 18 09/17/23 02:23 BP 155/103 H 09/17/23 02:23 Pulse Ox 100 09/17/23 02:23 O2 Del Method Room Air 09/17/23 02:23 BMI result Body Mass Index 25.2 Appearance: Alert. Oriented X3. No acute distress. Eyes: pallor+ ENT: Pharynx normal. Oral Mucosa moist Neck: Normal inspection. Neck supple. CVS: Normal heart rate and rhythm. Pulses normal. Respiratory: No respiratory distress. Equal air entry bilateral, no wheezing/rales/rhonchi Abdomen: Soft and nontender. Bowel sounds are present, no mass palpable, no CVA tenderness diffuse tenderness in the back musculoskeletal Skin: Skin warm and dry. Normal skin color. Normal skin turgor. Extremities: No lower extremity edema r bka . No calf tenderness Neuro: Oriented X 3. No motor deficit. Medications Administered Discontinued Medications Generic Name Dose Route Start Last Admin Trade Name Freq PRN Reason Stop Dose Admin Hydromorphone HCl 2 mg 09/17/23 03:23 09/17/23 03:36 Hydromorphone Hcl 2 Mg/Ml Vial IM 09/17/23 03:24 2 mg ONCE ONE Administration Protocol Ondansetron HCl 4 mg 09/17/23 03:23 09/17/23 03:36 Ondansetron Odt 4 Mg Tab.Rapdis TRANSLINGU 09/17/23 03:24 4 mg ONCE ONE Administration Medical Decision Making Medical Decision Making [facility] Narrative: Patient with chronic pain with CKD with multiple CT scan negative for any acute pathology give Dilaudid which she comes here for most of the time advised to follow up with PCP Lab Data [facility] Lab Attestation statement: I reviewed the patient's lab results. 09/17/23 02:38 09/17/23 02:38 Labs: Lab Results 09/17/23 09/17/23 Range/Units 02:38 02:45 WBC 11.8 H (4.8-10.8) X10*3/uL RBC 3.49 L (4.20-5.50) X10*6/uL Hgb 8.8 L (12.0-16.0) g/dl Hct 27.8 L (37.0-47.0) % MCV 79.7 L (80.0-98.0) fL MCH 25.2 L (27.0-33.0) pg MCHC 31.7 (31.0-35.0) g/dl RDW 18.8 H (11.0-16.0) % Plt Count 383 (160-400) X10*3/uL MPV 9.4 (9.4-12.3) fL Immature Gran % (Auto) 0.3 (0.0-0.4) % Neut % (Auto) 73.4 H (45-73) % Lymph % (Auto) 15.4 L (20-40) % [place] % (Auto) 10.0 (2-11) % Eos % (Auto) 0.3 (0-4) % Baso % (Auto) 0.6 (0-2) % Lymph # (Auto) 1.8 (1.2-4.9) X10*3/uL [place] # (Auto) 1.2 (0.1-1.2) X10*3/uL Eos # (Auto) 0.0 (0.0-0.4) X10*3/uL Baso # (Auto) 0.1 (0.0-0.2) X10*3/uL Abs Immat Gran (auto) 0.03 (0.00-0.03) X10*3/uL Absolute Neuts (auto) 8.7 H (2.0-8.3) x10*3/uL Absolute Nucleated RBC 0.000 (0.0-0.012) X10*3/uL Nucleated RBC % (auto) 0.0 (0.0-0.2) /100WBC Sodium 137 (135-145) mmol/L Potassium 4.3 (3.3-5.1) mmol/L Chloride 103 (96-108) mmol/L Carbon Dioxide 21 L (22-29) mmol/L Anion Gap 17 (12-20) BUN 25 H (9-16) mg/dL Creatinine 2.02 H (0.5-1.4) mg/dL Estim Creat Clear Calc 37.7 Estimated GFR 27 Random Glucose 136 H (60-115) mg/dL Calcium 9.8 D (8.4-10.2) mg/dL Total Bilirubin 0.3 (0.0-1.0) mg/dL AST 27 (5-31) U/L ALT 23 (0-31) U/L Alkaline Phosphatase 101 (39-117) U/L Total Protein 8.8 H (6.5-8.0) g/dL Albumin 4.7 (3.5-5.0) g/dL Urine Color Yellow Urine Appearance Clear Urine pH 7.0 (5.0-9.0) Ur Specific [place] 1.015 (1.005-1.025) Urine Protein 100 (2+) H (Neg-Trace) mg/dL Urine Glucose (UA) Negative (Negative) mg/dL Urine Ketones Trace (Negative) mg/dL Urine Blood Negative (Negative) Urine Nitrite Negative (Negative) Ur Leukocyte Esterase Negative (Negative) Urine RBC 0-2 (0-2) /HPF Urine WBC 0-5 (0-5) /HPF Ur Squamous Epith Cells 3-5 (0-2) /HPF Urine Bacteria None Seen (None Seen) Hyaline Casts 0-2 (0-2) /LPF Urine Test NEGATIVE (NEGATIVE) Discharge Plan Discharge Clinical Impression: Chronic back pain Patient Disposition: Home, Self-Care Instructions: Chronic Back Pain (DC) Additional Instructions: Drink plenty of fluids Follow up with PCP Prescriptions: New oxycodone 5 mg tablet 5 mg PO Q6H PRN (Reason: pain) Qty: 20 0RF Rx Instructions: Partial Fill upon patient request. ondansetron 4 mg tablet,disintegrating 4 mg PO Q6-8H PRN (Reason: nausea and vomiting) Qty: 20 0RF No Action insulin lispro 100 unit/mL insulin pen 4 - 5 unit subcut TIDAC 30 Days Qty: 15 0RF insulin glargine 100 unit/mL (3 mL) insulin pen 22 unit subcut BEDTIME 30 Days Qty: 15 0RF (DME) pen needle, diabetic [BD Rylee 2nd Gen Pen Needle] 32 gauge x 5/32 needle See Rx Instructions .Route Qty: 100 1RF Rx Instructions: As directed omeprazole 20 mg capsule,delayed release(DR/EC) 20 mg PO DAILY naproxen 500 mg tablet 500 mg PO BID PRN (Reason: Pain) metoclopramide HCl [Reglan] 10 mg tablet 10 mg PO AC PRN (Reason: nausea and vomiting) Qty: 14 0RF cyanocobalamin (vitamin B-12) 100 mcg tablet 1 tab PO DAILY cyclobenzaprine 10 mg tablet 10 mg PO TID PRN (Reason: muscle spasm) Qty: 14 0RF lidocaine 5 % adhesive patch,medicated 1 patch topical DAILY Qty: 30 0RF Rx Instructions: leave on most painful area for up to 12 hrs benzonatate 100 mg capsule 100 mg PO TID PRN (Reason: cough) Qty: 20 0RF acetaminophen 325 mg capsule 325 mg PO QID PRN (Reason: pain) 7 Days Qty: 28 0RF cyclobenzaprine 10 mg tablet 10 mg PO TID PRN (Reason: muscle spasm) 7 Days Qty: 21 0RF Rx Instructions: side effect is drowsiness. cyclobenzaprine 10 mg tablet 10 mg PO TID PRN (Reason: muscle spasm) Qty: 15 0RF ondansetron 4 mg tablet,disintegrating 4 mg PO Q8H PRN (Reason: nausea and vomiting) Qty: 20 0RF ferrous fumarate 325 mg (106 mg iron) tablet 325 mg PO DAILY Qty: 30 1RF vitamin B complex [Vitamins B Complex] Tablet 1 tab PO DAILY Qty: 30 0RF dicyclomine 10 mg capsule 10 mg PO TID PRN (Reason: abdominal discomfort) Qty: 90 0RF Print Language: Kyrgyz
[2023-09-17 03:05] LABS: Alanine Aminotransferase 23 U/L (0-31); Albumin Level 4.7 g/dL (3.5-5.0); Alkaline Phosphatase 101 U/L (39-117); Anion Gap 17 (12-20); Aspartate Amino Transferase 27 U/L (5-31); Bilirubin Total 0.3 mg/dL (0.0-1.0); Blood Urea Nitrogen 25 mg/dL (9-16); Calcium 9.8 mg/dL (8.4-10.2); Carbon Dioxide 21 mmol/L (22-29); Chloride 103 mmol/L (96-108); Creatinine Clr Calc Pharmacy 37.7; Estimated Glomerular Filt Rate 27; Glucose Random 136 mg/dL (60-115); Potassium 4.3 mmol/L (3.3-5.1); Sodium 137 mmol/L (135-145); Total Protein 8.8 g/dL (6.5-8.0)
[2023-09-17 03:06] LABS: Bacteria Urine None Seen (None Seen); Hyaline Casts Urine 0-2 /LPF (0-2); RBC Urine 0-2 /HPF (0-2); WBC Urine 0-5 /HPF (0-5)
[2023-09-17] MEDS: HYDROmorphone HCl 2 MG/ML VIAL IM (03:36)
[2023-09-17] MEDS: Ondansetron ODT 4 MG TAB.RAPDIS TRANSLINGU (03:36)
[2023-09-17 06:34] VITALS: BP 142/86; PULSE 110; RESP 18; TEMP 36.6; O2SAT 100
== END 2023-09-17 03:50 | disposition home or self-care (01) ==
PROVIDERS: Emergency Provider Internal Medicine
DX: G89.29 Other chronic pain (principal); M54.9 Dorsalgia, unspecified; I12.9 Hypertensive chronic kidney disease with stage 1 through stage 4 chronic kidney disease, or unspecified chronic kidney disease; N18.9 Chronic kidney disease, unspecified; Z89.511 Acquired absence of right leg below knee
CPT/HCPCS: 36415; 80053; 81001; 81025; 85025; 96372; 99282; 99284; J1170

== ENCOUNTER 2023-09-28 11:16 | Outpatient (AMB) | payer OTHER, SELFPAY ==
--- NOTE | 2023-09-28 11:19 | MHC.PC.OV ---
Vital Signs 09/28/23 11:20 Height 5 ft 8 in Weight 182 lb BMI 27.7 BP 126/70 Blood Pressure Location Lt brachial Position Sitting Pulse 87 Pulse Source Pulse Oximeter Pulse Oximetry (%) 99 Oxygen Delivery Method Room Air Intake Visit Reasons: [facility] 5/5 flank pain Intake Note: Pt is here to reestablished with PCP and F/U from multiple ED visits. 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 Required: No Accompanied by: Friend/Sister Allergies morphine [MORPHINE] Allergy (Unknown, Verified 09/28/23 11:36) HIVES raspberry [Raspberry] Allergy (Unknown, Verified 09/28/23 11:36) HIVES nitrofurantoin [From Macrobid] Adverse Reaction (Unknown, Verified 09/28/23 11:36) GI side effects Medication List - Last Reconciled 09/28/23 by Dariusz Garcia PA-C cyclobenzaprine 10 mg PO TID PRN insulin glargine 22 units (0.22 mL) subcut BEDTIME 30 days insulin lispro 4 - 5 units (0.04 - 0.05 mL) subcut TIDAC 30 days pen needle, diabetic (BD Rylee 2nd Gen Pen Needle) As directed Tobacco use date assessed: 09/28/23 Dental Screening Dental Screen Date: 09/28/23 Did you have a dental visit in the last 12 months?: No Did you have a dental problem in the last 6 months where you did not have access to dental care?: No Was dental information given to patient?: No HPI [facility] 5/5 flank pain HPI Details Patient is a 38-year-old female here today for a reestablish care/follow-up visit. ? Patient has a past medical history significant for type 1 diabetes complicated by gastroparesis awaiting gastric pacemaker, nephropathy, CKD stage 3, retinal hemorrhage, chronic anemia. Patient recently seen at the [facility] for abdominal pain and flank pain. No significant findings, has had multiple CTs of her abdomen without significant findings. Type 1 diabetes complicated by gastroparesis and CKD stage 3: Patient continues on insulin therapy with good effect on her sugars. Today's A1c is 6.1. She does CKD stage 3 likely secondary to her diabetes.Unfortunately continues to have multiple ER visits due to abdominal pains most likely secondary to her gastroparesis.? She does have an upcoming appointment with Dr. York in [facility]. Of note she does need to get an upper GI series before seeing surgeon. Laboratory Tests 01/16/20 01/20/20 02/09/21 15:37 23:55 11:51 WBC RBC 3.26 L Hgb 7.5 L Hct MCV Creatinine 2.84 H Random Glucose Lipase 96 H 130 H 02/10/21 03/11/21 12/19/22 05:15 13:33 09:37 WBC RBC 3.49 L Hgb 8.1 L Hct 27.0 L MCV Creatinine 1.83 H 1.91 H Random Glucose Lipase 05/07/23 09/15/23 09/17/23 19:33 10:17 02:38 WBC 11.8 H RBC 3.49 L Hgb 8.8 L Hct MCV 79.7 L Creatinine 1.72 H 1.83 H 2.02 H Random Glucose 142 H 136 H Lipase [facility] Medical History Mesenteric ischemia Chronic pain disorder Iron deficiency anemia GERD without esophagitis Gastroparesis Nausea Hordeolum externum of right eye Chronic kidney disease Anxiety Diabetes Hypertension Surgical History Hx of right BKA History of right cataract surgery Family History Father Hyperlipidemia Mother Stomach cancer Sister Diabetes Mental health disorder Social History (Updated 09/28/23 @ 12:10 by Dariusz Garcia PA-C) Housing: Apartment Alcohol intake: never Patient Tobacco Use Status: Never used Tobacco e-Cigarette/Vaping Use: Never Used Second Hand Smoke Exposure: No Substance Use Type: Marijuana Advance Directives Date on File: 02/09/21 service: No Current occupational status: employed and disabled 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 1. Little interest or pleasure in doing things: more than half the days 2. Feeling down, depressed, or hopeless: more than half the days 3. Trouble falling or staying asleep, or sleeping too much: nearly every day 4. Feeling tired or having little energy: more than half the days 5. Poor appetite or overeating: nearly every day 6. Feeling bad about yourself - or that you are a failure or have let yourself or your family down: not at all 7. Trouble concentrating on things, such as reading the newspaper or watching television: not at all 8. Moving or speaking so slowly that other people could have noticed. Or the opposite - being so fidgety or restless that you have been moving around a lot more than usual: more than half the days 9. Thoughts that you would be better off or of hurting yourself in some way: not at all Total score: 14 Depression Screening Interpretation: Positive Depression Screening Follow-up: Existing condition and New Medication prescribed Depression Screening Done: Yes 95557 - PHQ-9 Billing: Yes Source: Developed by Drs. Matt Daniels, Caroline Rodriguez, Geovani Hylton and colleagues, with an educational jolynn from [email or web address]. Thrive Questionnaire Date Thrive assessed: 09/28/23 I am a: Patient What is your living situation today?: I have a steady place to live Within the past 12 months, did the food you bought not last and you didn't have the money to get more?: Never true Within the past 12 months, did you worry whether your food would run out before you got money to buy more?: Never true Do you have trouble paying for medicines?: No Do you have trouble getting transportation to medical appointments?: No Do you have trouble paying your heating and electricity bill?: No Do you have trouble taking care of your child, family member or friend?: No Do you have trouble with day-to-day activities such as bathing, preparing meals, shopping, managing finances, etc.?: No Are you currently unemployed and looking for a job?: No Are you interested in more education?: No Please select the resources that you would like help with: None Currently or been in a relationship where the following occur: no concerns reported THRIVE Score: 0 AUDIT C Alcohol Use Questionnaire (AUDIT-C) 1. How often do you have a drink containing alcohol?: Never 3. How often do you have six or more drinks on one occasion?: Never Total Score: 0 KARINA-7 AMB Questionnaire KARINA-7 Date KARINA - 7 assessed: 09/28/23 Feeling nervous, anxious, or on edge: 3 = Nearly every day Not being able to stop or control worryin = Nearly every day Worrying too much about different things: 3 = Nearly every day Trouble relaxin = Nearly every day Being so restless that it is hard to sit still: 1 = Several days Becoming easily annoyed or irritable: 2 = More than half the days Feeling afraid as if something awful might happen: 2 = More than half the days Total KARINA-7 score (0-4 normal; 5-9 mild; 10-14 moderate; 15-21 severe): 17 Source: Developed by Drs. Matt Daniels, Caroline Rodriguez, Geovani Hylton and colleagues, with an educational jolynn from [email or web address]. KARINA-7 Assessment Billing KARINA-7 Assessment Tool: KARINA-7 Assessment 35141 Review of Systems Const Denies headache(s) Eyes Denies loss of vision ENT Denies vertigo, Denies dizziness, Denies headache(s) and Denies sore throat Card Denies chest pain, Denies leg edema and Denies lightheadedness Resp Denies cough, Denies hemoptysis and Denies wheezing GI Denies abdominal pain, Denies melena, Denies constipation, Denies diarrhea and Denies vomiting Denies urinary frequency, Denies dysuria and Denies urinary urgency Musc Denies arthralgias, Denies joint swelling, Denies numbness and Denies tingling Neuro Denies Abnormal speech present, Denies behavioral changes, Denies vertigo, Denies dizziness, Denies headache(s), Denies loss of vision, Denies memory loss, Denies numbness and Denies tingling Psych Denies anxiety, Denies behavioral changes, Denies depression, Denies memory loss and Denies panic attacks Soto/Lymph Denies easy bleeding and Denies easy bruising Aller/Immun Denies wheezing Physical exam (Primary Care) Vital Signs: Last Vital Signs Pulse 87 09/28/23 11:20 BP 126/70 09/28/23 11:20 Pulse Ox 99 09/28/23 11:20 Oxygen Delivery Method Room Air 09/28/23 11:20 BMI result Body Mass Index 27.7 Tobacco/Smoking Status: Tobacco use Status Tobacco use date assessed 09/28/23 09/28/23 11:33 Patient Tobacco Use Status Never used Tobacco 09/28/23 11:19 e-Cigarette/Vaping Use Never Used 09/28/23 11:19 PHQ-9: PHQ-9 Score PHQ-9: Total score 14 09/28/23 11:42 Depression Screening Interpretation: Positive Depression Screening Follow-up: Existing condition and New Medication prescribed Thrive Assessment: Date of Thrive Assessment Date Thrive assessed 09/28/23 09/28/23 11:33 Currently or been in a relationship where the following occur: no concerns reported Const General: healthy appearing, no acute distress, alert and awake Nutritional Appearance: well nourished Orientation/consciousness: oriented to person, oriented to place and oriented to time HENMT Ears: TM's normal bilaterally General nose exam: Normal nasal mucous membranes and turbinates present Eyes Conjunctivae: conjunctivae normal Sclerae: sclerae normal Pupils: Equal, round and reactive pupils present Neck Neck: Yes no lymphadenopathy and Yes no JVD Thyroid: Thyroid normal Carotids: no bruits Resp Effort & Inspection: normal respiratory effort and not tachypneic Auscultation: no crackles, no rales, no rhonchi and no wheezes Cardio Rate: regular rate Rhythm: regular rhythm Heart sounds: no murmurs and normal S1 and S2 GI Palpation (GI): Soft to palpation, nontender, no hepatomegaly and no splenomegaly Auscultation: normal bowel sounds Skin General skin exam: no rashes or lesions noted and dry skin Neuro General: oriented to person, oriented to place and oriented to time Cranial nerves: Yes Equal, round and reactive pupils present Speech: No Abnormal speech present Gait exam (Neuro): Normal gait present Motor exam (neuro): no tremor noted Extrem Other: NOTED RIGHT BELOW-KNEE AMPUTATION. Right upper extremity: full ROM Left upper extremity: full ROM Left lower extremity: full ROM; no edema Psych Mental Status: mental status grossly normal Speech and movement: Normal speech and movement present Affect: normal affect Attitude: cooperative Thought process: Normal thought process present Results AMB Hemoglobin A1c AMB Hemoglobin A1c 6.1 % Last Edit by SHASHA Summers on 09/28/23 11:37 Results Reviewed Results Reviewed: Laboratory Last Values Hgb A1c (Clinic) 6.1 % (4.0-6.0) H 09/28/23 11:37 Assessment and Plan Assessment & Plan (1) Type 1 diabetes: Code(s): E10.9 - Type 1 diabetes mellitus without complications Qualifiers: Diabetes mellitus complication detail: with polyneuropathy Diabetes mellitus complication status: with neurologic complications Qualified Code(s): E10.42 - Type 1 diabetes mellitus with diabetic polyneuropathy Plan: Patient's type 1 diabetes well controlled with A1c at 6.1. Continue current diabetic insulin regime. Goal A1c is to remain below 7.0 (2) KARINA (generalized anxiety disorder): Code(s): F41.1 - Generalized anxiety disorder Plan: Patient's KARINA-7 score positive for anxiety which has been existing condition for her. She is willing now to see a mental health therapist and start medication. Will start Zoloft 50 mg daily. 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 She is willing to speak with a assistant engineer about diabetic diet related to gastroparesis. (4) Insomnia: Code(s): G47.00 - Insomnia, unspecified Qualifiers: Insomnia type: primary Qualified Code(s): F51.01 - Primary insomnia Plan: Patient reports over the last several months having difficulty sleeping. Was on trazodone in the past with good effect. Will restart trazodone for sleep. (5) Cervical cancer screening: Code(s): Z12.4 - Encounter for screening for malignant neoplasm of cervix Plan: Needs up-to-date Pap smear. (6) CKD stage 3 due to type 1 diabetes mellitus: Code(s): E10.22 - Type 1 diabetes mellitus with diabetic chronic kidney disease; N18.30 - Chronic kidney disease, stage 3 unspecified Plan: Noted to CKD and most recent labs, likely related to type 1 diabetes. Will start ARB for renal protection. Continue to follow renal functions (7) History of right below knee amputation: Code(s): Z89.511 - Acquired absence of right leg below knee (8) MDD (major depressive disorder), recurrent episode, moderate: Code(s): F33.1 - Major depressive disorder, recurrent, moderate Plan: Patient's PHQ-9 score positive for depression which has been more of a new condition. She is now willing to start medication and speak with a mental health therapist. Orders: Orders AMB Hemoglobin A1c Today E10.42 - Type 1 diabetes mellitus with diabetic polyneuropathy Comprehensive Hardy. Panel Fast Today E10.42 - Type 1 diabetes mellitus with diabetic polyneuropathy Complete Blood Count no Diff Today E10.42 - Type 1 diabetes mellitus with diabetic polyneuropathy Microalbumin, Random (w Creat) Today E10.42 - Type 1 diabetes mellitus with diabetic polyneuropathy Lipid Panel Today E10.42 - Type 1 diabetes mellitus with diabetic polyneuropathy Referrals Counseling Referral F41.1 - Generalized anxiety disorder, Z13.220 - Encounter for screening for lipoid disorders Ophthalmology Referral E10.42 - Type 1 diabetes mellitus with diabetic polyneuropathy, E11.22 - Type 2 diabetes mellitus with diabetic chronic kidney disease, N18.2 - Chronic kidney disease, stage 2 (mild) AUTOMOBILE CONTRACT CLERK Referral Z12.4 - Encounter for screening for malignant neoplasm of cervix Nutrition/Dietitian Referral E13.43 - Other specified diabetes mellitus with diabetic autonomic (poly)neuropathy Medications: New sertraline 50 mg PO DAILY 30 days 30 tabs 1RF F41.1 - Generalized anxiety disorder blood-glucose meter,continuous (Dexcom G7 Meter Tester Polyphase) As directed 1 ea 0RF E10.42 - Type 1 diabetes mellitus with diabetic polyneuropathy blood-glucose sensor (Dexcom G7 Sensor device) As directed 1 ea 6RF E10.42 - Type 1 diabetes mellitus with diabetic polyneuropathy trazodone 25 mg (1/2 x 50 mg) PO DAILY 30 days 15 tabs 3RF G47.00 - Insomnia, unspecified losartan 25 mg PO DAILY 90 days 90 tabs 1RF E10.22 - Type 1 diabetes mellitus with diabetic chronic kidney disease, N18.30 - Chronic kidney disease, stage 3 unspecified Refilled cyclobenzaprine 10 mg PO TID PRN 15 tabs 0RF muscle spasm Patient Instructions: Goal: A1c to remain below 7.0 Barrier: Adherence to physical activity and healthy eating habits. Coding Level of Care Code Est Pt Level 4 (32309) Diagnoses Type 1 diabetes mellitus with diabetic polyneuropathy E10.42 Diabetes mellitus complication detail: with polyneuropathy Diabetes mellitus complication status: with neurologic complications KARINA (generalized anxiety disorder) F41.1 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 E13.43 Primary insomnia F51.01 Insomnia type: primary Cervical cancer screening Z12.4 CKD stage 3 due to type 1 diabetes mellitus E10.22; N18.30 History of right below knee amputation Z89.511 MDD (major depressive disorder), recurrent episode, moderate F33.1 Additional Codes KARINA-7 Assessment Billing - KARINA-7 Assessment Tool: KARINA-7 Assessment [id number] ([id number])
[2023-09-28 11:20] VITALS: BP 126/70; PULSE 87; O2SAT 99; BMI 27.7
== END 2023-09-28 12:00 | disposition home or self-care (01) ==
PROVIDERS: PCP Physician Assistant; Visit Provider Physician Assistant
DX: E10.22 Type 1 diabetes mellitus with diabetic chronic kidney disease (principal); N18.30 Chronic kidney disease, stage 3 unspecified; Z89.511 Acquired absence of right leg below knee; F33.1 Major depressive disorder, recurrent, moderate; F41.1 Generalized anxiety disorder; F51.01 Primary insomnia
CPT/HCPCS: 83036; 96127; 99214

== ENCOUNTER 2023-10-07 02:16 | Emergency (ER) | payer OTHER, SELFPAY ==
[2023-10-07 02:25] VITALS: RESP 44; BMI 22.8
--- NOTE | 2023-10-07 02:33 | PC.NURSE ---
UTO VS @ the time of triage as pt was unable to sit still.
--- NOTE | 2023-10-07 04:03 | MHC.EDTECH ---
Unable to do EKG. Patient refused. RN aware
--- NOTE | 2023-10-07 04:40 | ED.GENADULT ---
HPI - General Adult General Chief complaint: General Medical Stated complaint: chest pain Time Seen by Provider: 10/07/23 04:40 History of Present Illness HPI narrative: The patient is a 38-year-old female with a history of chronic kidney hypertension so has a history of gastroparesis she apparently comes to the emergency room frequently for nausea and vomiting. She presents today complaining of nausea and vomiting that she thinks might have been triggered by her period. Related Data Previous Rx's ?Medication ?Instructions ?Recorded insulin glargine 100 unit/mL (3 22 unit (0.22 mL) subcut BEDTIME 08/10/23 mL) subcutaneous pen 30 days #15 mL insulin lispro 100 unit/mL 4 - 5 unit (0.04 - 0.05 mL) subcut 08/10/23 subcutaneous pen TIDAC 30 days #15 mL pen needle, diabetic 32 gauge x #100 ea 08/10/23 (BD Rylee 2nd Gen Pen Needle) blood-glucose meter,continuous #1 ea 09/28/23 (Dexcom G7 Top Bottom Attaching Machine Operator) blood-glucose sensor (Dexcom G7 #1 ea 09/28/23 Sensor device) cyclobenzaprine 10 mg tablet 10 mg PO TID PRN muscle spasm #15 09/28/23 tabs losartan 25 mg tablet 25 mg PO DAILY 90 days #90 tabs 09/28/23 sertraline 50 mg tablet 50 mg PO DAILY 30 days #30 tabs 09/28/23 trazodone 50 mg tablet 25 mg (1/2 x 50 mg) PO DAILY 30 09/28/23 days #15 tabs ondansetron HCl 4 mg tablet 4 mg PO Q6H PRN nausea and 10/07/23 vomiting #10 tabs oxycodone 5 mg tablet 5 mg PO Q6H PRN pain #14 tabs 10/07/23 Allergies Allergy/AdvReac Type Severity Reaction Status Date / Time morphine [MORPHINE] Allergy Unknown HIVES Verified 10/07/23 02:31 raspberry [Raspberry] Allergy Unknown HIVES Verified 10/07/23 02:31 nitrofurantoin AdvReac Unknown GI side Verified 10/07/23 02:31 [From Macrobid] effects Review of Systems Review of Systems: Yes all other systems are reviewed and are negative PMFSH Past Medical History Medical History Mesenteric ischemia Chronic pain disorder Iron deficiency anemia GERD without esophagitis Gastroparesis Nausea Hordeolum externum of right eye Chronic kidney disease Anxiety Diabetes Hypertension Surgical History Hx of right BKA History of right cataract surgery Family History Family History Father Hyperlipidemia Mother Stomach cancer Sister Diabetes Mental health disorder Social History Social History (Updated 09/28/23 @ 12:10 by Dariusz Garcia PA-C) Housing: Apartment Alcohol intake: never Patient Tobacco Use Status: Never used Tobacco e-Cigarette/Vaping Use: Never Used Second Hand Smoke Exposure: No Substance Use Type: Marijuana Advance Directives: Yes Advance Directives on File: Yes Advance Directives Date on File: 02/09/21 Do you have a plan to hurt others: No Plan Patient : No service: No Current occupational status: employed and disabled 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[employer] [[email or web address] Cognitive needs: No Hearing needs: No Vision needs: Yes (annual eye exam) Physical Exam ED Vital Signs: Vital Signs - 24 hr 10/07/23 02:25 10/07/23 05:27 10/07/23 05:34 Temperature Pulse Rate 86 Respiratory Rate 44 H 18 18 Blood Pressure 160/81 H Pulse Oximetry 98 Oxygen Delivery Method Room Air Room Air 10/07/23 06:02 10/07/23 10:32 Temperature 97.8 F 97.8 F Pulse Rate 84 84 Respiratory Rate 18 18 Blood Pressure 135/69 135/69 Pulse Oximetry 95 95 Oxygen Delivery Method Room Air Room Air BMI result Body Mass Index 22.8 Const Other: The patient was awake and alert but seemed distracted by her symptoms and was retching, yelling and throwing herself on the floor. HENMT Other: Face was symmetrical. Mucous membranes moist. Eyes Other: Pupils are round equal, conjunctivae clear Neck Other: Moving her neck easily Resp Other: No increased work of breathing. Lung sounds were clear bilaterally Cardio Rate: regular rate Rhythm: regular rhythm Heart sounds: S1 normal heart sound present and S2 normal heart sound present GI Other: Abdomen was mildly diffusely tender but without focal rebound or guarding Skin Other: Skin was dry and unremarkable Neuro Other: The patient seemed distracted by her discomfort and was restless and shaking severely. However she seemed to move all 4 extremities symmetrically and did not seem to have any focal deficit. Extrem Other: There is a right [id number] amputation Medications Administered Discontinued Medications Generic Name Dose Route Start Last Admin Trade Name Freq PRN Reason Stop Dose Admin Diphenhydramine HCl 50 mg 10/07/23 04:41 10/07/23 04:57 Diphenhydramine Hcl 50 Mg/Ml Vial IM 10/07/23 04:42 50 mg ONCE ONE Administration Droperidol 2.5 mg 10/07/23 04:41 10/07/23 04:57 Droperidol 5 Mg/2 Ml Vial IM 10/07/23 04:42 2.5 mg ONCE ONE Administration Droperidol 1.25 mg 10/07/23 06:47 10/07/23 07:28 Droperidol 5 Mg/2 Ml Vial IM 10/07/23 06:48 1.25 mg ONCE ONE Administration Hydromorphone HCl 2 mg 10/07/23 05:29 10/07/23 05:34 Hydromorphone Hcl 2 Mg/Ml Vial IM 10/07/23 05:30 2 mg ONCE ONE Administration Protocol Hydromorphone HCl 2 mg 10/07/23 06:47 10/07/23 07:29 Hydromorphone Hcl 2 Mg/Ml Vial IM 10/07/23 06:48 2 mg ONCE ONE Administration Protocol Lorazepam 2 mg 10/07/23 08:56 10/07/23 09:17 Lorazepam 2 Mg/Ml Vial IM 10/07/23 08:57 2 mg ONCE ONE Administration Medical Decision Making Medical Decision Making MDM Narrative: The patient is a 38-year-old female with multiple medical problems who comes to the emergency room in his state of historical agitation complaining of abdominal pain that she attributes to her. . Patient has had previous similar presentations in the past. Labs seemed to be close to baseline. She was treated with multiple IM injections of droperidol and hydromorphone. Also IM lorazepam. Ultimately the patient seemed to feel somewhat better and felt well enough for outpatient management. She was given a prescription for ondansetron and oxycodone. Lab Data 10/07/23 06:15 10/07/23 06:15 Labs: Lab Results 10/07/23 Range/Units 06:15 WBC 8.0 (4.8-10.8) X10*3/uL RBC 3.48 L (4.20-5.50) X10*6/uL Hgb 8.6 L (12.0-16.0) g/dl Hct 28.2 L (37.0-47.0) % MCV 81.0 (80.0-98.0) fL MCH 24.7 L (27.0-33.0) pg MCHC 30.5 L (31.0-35.0) g/dl RDW 18.0 H (11.0-16.0) % Plt Count 346 (160-400) X10*3/uL MPV 9.1 L (9.4-12.3) fL Immature Gran % (Auto) 0.2 (0.0-0.4) % Neut % (Auto) 86.5 H (45-73) % Lymph % (Auto) 9.1 L (20-40) % Bay % (Auto) 3.2 (2-11) % Eos % (Auto) 0.1 (0-4) % Baso % (Auto) 0.9 (0-2) % Lymph # (Auto) 0.7 L (1.2-4.9) X10*3/uL Bay # (Auto) 0.3 (0.1-1.2) X10*3/uL Eos # (Auto) 0.0 (0.0-0.4) X10*3/uL Baso # (Auto) 0.1 (0.0-0.2) X10*3/uL Abs Immat Gran (auto) 0.02 (0.00-0.03) X10*3/uL Absolute Neuts (auto) 6.9 (2.0-8.3) x10*3/uL Absolute Nucleated RBC 0.000 (0.0-0.012) X10*3/uL Nucleated RBC % (auto) 0.0 (0.0-0.2) /100WBC Sodium 141 (135-145) mmol/L Potassium 4.1 (3.3-5.1) mmol/L Chloride 110 H (96-108) mmol/L Carbon Dioxide 19 L (22-29) mmol/L Anion Gap 16 (12-20) BUN 18 H (9-16) mg/dL Creatinine 1.93 H (0.5-1.4) mg/dL Estim Creat Clear Calc 39.4 Estimated GFR 29 Random Glucose 225 H (60-115) mg/dL Calcium 9.5 (8.4-10.2) mg/dL Total Bilirubin 0.2 (0.0-1.0) mg/dL Direct Bilirubin < 0.2 (0.0-0.5) mg/dL AST 18 (5-31) U/L ALT 13 (0-31) U/L Alkaline Phosphatase 108 (39-117) U/L Total Protein 8.2 H (6.5-8.0) g/dL Albumin 4.4 (3.5-5.0) g/dL Discharge Plan Discharge Clinical Impression: Abdominal pain with vomiting Patient Disposition: Home, Self-Care Additional Instructions: I have Sent a prescription for ondansetron (Zofran) to your pharmacy which you may use for nausea. I have sent a prescription for oxycodone which you may use for pain. Please follow up soon with your regular doctor. Prescriptions: New ondansetron HCl 4 mg tablet 4 mg PO Q6H PRN (Reason: nausea and vomiting) Qty: 10 0RF oxycodone 5 mg tablet 5 mg PO Q6H PRN (Reason: pain) Qty: 14 0RF Rx Instructions: Partial Fill upon patient request. No Action insulin lispro 100 unit/mL insulin pen 4 - 5 unit subcut TIDAC 30 Days Qty: 15 0RF insulin glargine 100 unit/mL (3 mL) insulin pen 22 unit subcut BEDTIME 30 Days Qty: 15 0RF (DME) pen needle, diabetic [BD Rylee 2nd Gen Pen Needle] 32 gauge x 5/32 needle See Rx Instructions .Route Qty: 100 1RF Rx Instructions: As directed cyclobenzaprine 10 mg tablet 10 mg PO TID PRN (Reason: muscle spasm) Qty: 15 0RF sertraline 50 mg tablet 50 mg PO DAILY 30 Days Qty: 30 1RF (DME) Dexcom G7 Top Bottom Attaching Machine Operator Misc See Rx Instructions .Route Qty: 1 0RF Rx Instructions: As directed (DME) Dexcom G7 Sensor Device See Rx Instructions .Route Qty: 1 6RF Rx Instructions: As directed trazodone 50 mg tablet 25 mg PO DAILY 30 Days Qty: 15 3RF losartan 25 mg tablet 25 mg PO DAILY 90 Days Qty: 90 1RF Referrals: Dariusz Garcia PA-C [Primary Care Provider] - (Recurrence of abdominal pain and vomiting) Interventions: ED Discharge Assessment Last Done: 10/07/23 10:32 Discharge Date/Time: 10/07/23 10:33 Print Language: Maori
[2023-10-07] MEDS: diphenhydrAMINE HCL 50 MG/ML VIAL IM (04:57)
[2023-10-07] MEDS: droPERidol 5 MG/2 ML VIAL 2.5 MG IM (04:57)
--- NOTE | 2023-10-07 05:08 | PC.NURSE ---
Pt restless, not following basic commands, unsteady putting self on floor, not redirectable. Pt medicated per JUL.
--- NOTE | 2023-10-07 05:16 | MHC.EDTECH ---
Attempted to change patient multiple times, unable to do. Patient very restless.
[2023-10-07 05:27] VITALS: BP 160/81; PULSE 86; RESP 18; O2SAT 98
[2023-10-07 05:34] VITALS: RESP 18
[2023-10-07] MEDS: HYDROmorphone HCl 2 MG/ML VIAL IM ×2 (05:34→07:29)
--- NOTE | 2023-10-07 05:36 | PC.NURSE ---
Pt difficult stick, meds given IM per MAR.
[2023-10-07 06:02] VITALS: BP 135/69; PULSE 84; RESP 18; TEMP 36.6; O2SAT 95
--- NOTE | 2023-10-07 06:16 | MHC.EDTECH ---
Attempted to change patient (6:15) Patient refused. RN aware
[2023-10-07 06:18] LABS: MANUAL DIFF FLAG NO
[2023-10-07 06:23] LABS: Basophils Absolute Auto 0.1 X10*3/uL (0.0-0.2); Basophils Percent Auto 0.9 % (0-2); Eosinophils Percent Auto 0.1 % (0-4); Hematocrit 28.2 % (37.0-47.0); Hemoglobin 8.6 g/dl (12.0-16.0); Imm Gran Abs Auto 0.02 X10*3/uL (0.00-0.03); Imm Gran Pct Auto 0.2 % (0.0-0.4); Lymphocytes Absolute Auto 0.7 X10*3/uL (1.2-4.9); Lymphocytes Percent Auto 9.1 % (20-40); Mean Corpuscular HGB Conc 30.5 g/dl (31.0-35.0); Mean Corpuscular Hemoglobin 24.7 pg (27.0-33.0); Mean Platelet Volume 9.1 fL (9.4-12.3); Monocytes Absolute Auto 0.3 X10*3/uL (0.1-1.2); Monocytes Percent Auto 3.2 % (2-11); Neutrophils Absolute Auto 6.9 x10*3/uL (2.0-8.3); Neutrophils Percent Auto 86.5 % (45-73); Platelet Count 346 X10*3/uL (160-400); Red Blood Count 3.48 X10*6/uL (4.20-5.50)
[2023-10-07 06:37] LABS: Alanine Aminotransferase 13 U/L (0-31); Albumin Level 4.4 g/dL (3.5-5.0); Alkaline Phosphatase 108 U/L (39-117); Anion Gap 16 (12-20); Aspartate Amino Transferase 18 U/L (5-31); Bilirubin Direct < 0.2 mg/dL (0.0-0.5); Bilirubin Total 0.2 mg/dL (0.0-1.0); Blood Urea Nitrogen 18 mg/dL (9-16); Calcium 9.5 mg/dL (8.4-10.2); Carbon Dioxide 19 mmol/L (22-29); Chloride 110 mmol/L (96-108); Creatinine Clr Calc Pharmacy 39.4; Estimated Glomerular Filt Rate 29; Glucose Random 225 mg/dL (60-115); Potassium 4.1 mmol/L (3.3-5.1); Sodium 141 mmol/L (135-145); Total Protein 8.2 g/dL (6.5-8.0)
[2023-10-07] MEDS: droPERidol 5 MG/2 ML VIAL 1.25 MG IM (07:28)
--- NOTE | 2023-10-07 07:36 | PC.NURSE ---
pt medicated per provider order. effectiveness pending.
[2023-10-07] MEDS: LORazepam 2 MG/ML VIAL IM (09:17)
--- NOTE | 2023-10-07 09:20 | PC.NURSE ---
pt is up for discharge. when waking pt - pt instantly tearful/states she doesn't feel good. when asking pt's what's wrong - pt c/o right sided ribcage pain. pt already previously medicated but states no effectiveness. pt states that she can't go home like this. notified/aware.
[2023-10-07 10:32] VITALS: BP 135/69; PULSE 84; RESP 18; TEMP 36.6; O2SAT 95
== END 2023-10-07 10:33 | disposition home or self-care (01) ==
PROVIDERS: Emergency Provider Emergency Medicine; PCP Physician Assistant
DX: R10.9 Unspecified abdominal pain (principal); R11.2 Nausea with vomiting, unspecified; E10.22 Type 1 diabetes mellitus with diabetic chronic kidney disease; I12.9 Hypertensive chronic kidney disease with stage 1 through stage 4 chronic kidney disease, or unspecified chronic kidney disease; N18.30 Chronic kidney disease, stage 3 unspecified; D50.9 Iron deficiency anemia, unspecified; F12.90 Cannabis use, unspecified, uncomplicated; Z79.4 Long term (current) use of insulin; Z79.84 Long term (current) use of oral hypoglycemic drugs; Z79.899 Other long term (current) drug therapy
CPT/HCPCS: 36415; 80048; 80076; 85025; 96372; 99284; J1170; J1200; J1790; J2060

== ENCOUNTER 2023-12-18 14:49 | Emergency (ER) | payer OTHER, SELFPAY ==
--- NOTE | ~2023-12-18 | CT_ITS ---
EXAM: CT HEAD WITHOUT CONTRAST CT CERVICAL SPINE INDICATION: Reason for Exam fall TECHNIQUE: A noncontrast CT scan was performed from the skull base to the vertex. A noncontrast CT scan of the cervical spine was performed from the base of the skull through T1 at 2.5 mm and 0.625 mm collimation. Coronal and sagittal reformats were obtained at the acquisition workstation. This CT examination was performed using dose optimization techniques as appropriate, variously including the following: * Automated exposure control * Adjustment of mA and/or kV according to patient size (this includes techniques or standardized protocols for targeted exams where dose is matched to indication/reason for exam; i.e. extremities or head) * Use of iterative reconstruction technique Dose length product is 1847 mGy-cm. COMPARISON: None FINDINGS: Head: There is no evidence of acute intracranial hemorrhage or edematous territorial infarction. No abnormal mass effect or midline shift is seen. Allen to white matter differentiation is well preserved. No extra-axial fluid collections are identified. The ventricles are normal in size. No abnormal attenuation in the brain parenchyma. No acute calvarial fracture.. Paranasal sinuses and mastoid air cells are well-aerated. Cervical Spine: The atlantooccipital and atlantoaxial articulations remain well aligned. Straightening/slight reversal of the normal cervical lordosis. Otherwise, there is anatomic alignment of the vertebral bodies and posterior elements. No evidence of acute fracture. Vertebral body heights are maintained.. The disc spaces are preserved. The bony canal is well maintained. No prevertebral soft tissue swelling. No suspicious thyroid findings. Lung apices are clear. CT/CT cervical spine wo IV con IMPRESSION: 1. No CT evidence of acute intracranial hemorrhage or edematous territorial infarction. 2. No CT evidence of acute cervical spine fracture or malalignment.
[2023-12-18 15:49] VITALS: BP 129/68; PULSE 91; RESP 16; TEMP 37; O2SAT 98; BMI 23.6
--- NOTE | 2023-12-18 15:55 | ED_ITS ---
HPI - General Adult General Chief complaint: Fall Stated complaint: fall, head inj, neck pain, dizzy Time Seen by Provider: 12/18/23 19:52 Related Data Previous Rx's ?Medication ?Instructions ?Recorded insulin glargine 100 unit/mL (3 22 unit (0.22 mL) subcut BEDTIME 08/10/23 mL) subcutaneous pen 30 days #15 mL insulin lispro 100 unit/mL 4 - 5 unit (0.04 - 0.05 mL) subcut 08/10/23 subcutaneous pen TIDAC 30 days #15 mL pen needle, diabetic 32 gauge x #100 ea 08/10/23 (BD Rylee 2nd Gen Pen Needle) blood-glucose meter,continuous #1 ea 09/28/23 (Dexcom G7 Loan Analyst) blood-glucose sensor (Dexcom G7 #1 ea 09/28/23 Sensor device) cyclobenzaprine 10 mg tablet 10 mg PO TID PRN muscle spasm #15 09/28/23 tabs losartan 25 mg tablet 25 mg PO DAILY 90 days #90 tabs 09/28/23 sertraline 50 mg tablet 50 mg PO DAILY 30 days #30 tabs 09/28/23 trazodone 50 mg tablet 25 mg (1/2 x 50 mg) PO DAILY 30 09/28/23 days #15 tabs ondansetron HCl 4 mg tablet 4 mg PO Q6H PRN nausea and 10/07/23 vomiting #10 tabs oxycodone 5 mg tablet 5 mg PO Q6H PRN pain #14 tabs 10/07/23 Allergies Allergy/AdvReac Type Severity Reaction Status Date / Time morphine [MORPHINE] Allergy Unknown HIVES Verified 12/18/23 15:52 raspberry [Raspberry] Allergy Unknown HIVES Verified 12/18/23 15:52 nitrofurantoin AdvReac Unknown GI side Verified 12/18/23 15:52 [From Macrobid] effects REPLACED BY [facility] Past Medical History Medical History Mesenteric ischemia Chronic pain disorder Iron deficiency anemia GERD without esophagitis Gastroparesis Nausea Hordeolum externum of right eye Chronic kidney disease Anxiety Diabetes Hypertension Surgical History Hx of right BKA History of right cataract surgery Family History Family History Father Hyperlipidemia Mother Stomach cancer Sister Diabetes Mental health disorder Social History Social History (Updated 09/28/23 @ 12:10 by Dariusz Garcia PA-C) Housing: Apartment Alcohol intake: never Patient Tobacco Use Status: Never used Tobacco e-Cigarette/Vaping Use: Never Used Second Hand Smoke Exposure: No Substance Use Type: Marijuana Advance Directives: Yes Advance Directives on File: Yes Advance Directives Date on File: 02/09/21 Do you have a plan to hurt others: No Plan service: No Current occupational status: employed and disabled 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 [age] year female presents to ED for head and neck pain since falling and hitting her head 2 weeks ago. Patient states left frontal hematoma that was large and still present but improving in size. Patient states no chest pain or shortness of breath. Patient states head pain ever since fall. Medical Decision Making Differential Diagnosis Differential Diagnoses: The differential diagnosis associated with the presentation includes Discharge Plan Discharge Clinical Impression: Headache Patient Disposition: Left W/O Completing Treatment Additional Instructions: You were seen today in the emergency department for a fall and hitting her head and straightening her neck and back. You had CTs which were all unremarkable. Please call follow up with her doctor. Prescriptions: No Action insulin lispro 100 unit/mL insulin pen 4 - 5 unit subcut TIDAC 30 Days Qty: 15 0RF insulin glargine 100 unit/mL (3 mL) insulin pen 22 unit subcut BEDTIME 30 Days Qty: 15 0RF (DME) pen needle, diabetic [BD Rylee 2nd Gen Pen Needle] 32 gauge x 5/32 needle See Rx Instructions .Route Qty: 100 1RF Rx Instructions: As directed ondansetron HCl 4 mg tablet 4 mg PO Q6H PRN (Reason: nausea and vomiting) Qty: 10 0RF oxycodone 5 mg tablet 5 mg PO Q6H PRN (Reason: pain) Qty: 14 0RF Rx Instructions: Partial Fill upon patient request. cyclobenzaprine 10 mg tablet 10 mg PO TID PRN (Reason: muscle spasm) Qty: 15 0RF sertraline 50 mg tablet 50 mg PO DAILY 30 Days Qty: 30 1RF (DME) Dexcom G7 Loan Analyst Misc See Rx Instructions .Route Qty: 1 0RF Rx Instructions: As directed (DME) Dexcom G7 Sensor Device See Rx Instructions .Route Qty: 1 6RF Rx Instructions: As directed trazodone 50 mg tablet 25 mg PO DAILY 30 Days Qty: 15 3RF losartan 25 mg tablet 25 mg PO DAILY 90 Days Qty: 90 1RF Discharge Date/Time: 12/18/23 22:59 ED Observation ED Observation Admit Comment: I went to see the patient but after calling multiple times I could not find her likely no longer in the department and left without completion of service.
== END 2023-12-18 22:59 | disposition left against medical advice (07) ==
LOC: HO.ED 22:22
PROVIDERS: Emergency Provider Student in an Organized Health Care Education/Training Program; PCP Physician Assistant
DX: S09.90XA Unspecified injury of head, initial encounter (principal); M54.2 Cervicalgia; R42 Dizziness and giddiness; R51.9 Headache, unspecified; X58.XXXA Exposure to other specified factors, initial encounter; W19.XXXA Unspecified fall, initial encounter; Y93.89 Activity, other specified; Y92.89 Other specified places as the place of occurrence of the external cause; Y99.8 Other external cause status
CPT/HCPCS: 70450; 72125; 99281; 99284

== ENCOUNTER 2024-01-25 09:42 | Outpatient (AMB) | payer OTHER, SELFPAY ==
[2024-01-25 09:51] VITALS: BP 146/84; PULSE 89; O2SAT 99; BMI 27.5
--- NOTE | 2024-01-25 09:51 | MHC.PC.OV ---
Vital Signs 01/25/24 09:51 Height 5 ft 8 in Weight 181 lb BMI 27.5 BP 146/84 H Blood Pressure Location Lt brachial Position Sitting Pulse 89 Pulse Source Pulse Oximeter Pulse Oximetry (%) 99 Oxygen Delivery Method Room Air Intake Visit Reasons: [facility] 01/12 abdominal pain Intake Note: The patient is here for ongoing chest pain that occurs intermittently when lifting objects, radiating to her left arm. Intelligence Operations Specialist Required: No Accompanied by: Self / Same As Patient Allergies morphine [MORPHINE] Allergy (Unknown, Verified 01/25/24 09:54) HIVES raspberry [Raspberry] Allergy (Unknown, Verified 01/25/24 09:54) HIVES nitrofurantoin [From Macrobid] Adverse Reaction (Unknown, Verified 01/25/24 09:54) GI side effects Medication List - Last Reconciled 01/25/24 by Dariusz Garcia PA-C blood-glucose meter,continuous (Dexcom G7 Pig Machine Supervisor) As directed blood-glucose sensor (Dexcom G7 Sensor device) As directed cyclobenzaprine 10 mg PO TID PRN insulin glargine 22 units (0.22 mL) subcut BEDTIME 30 days insulin lispro 4 - 5 units (0.04 - 0.05 mL) subcut TIDAC 30 days losartan 25 mg PO DAILY 90 days ondansetron HCl 4 mg PO Q6H PRN oxycodone 5 mg PO Q6H PRN pen needle, diabetic (BD Rylee 2nd Gen Pen Needle) As directed sertraline 50 mg PO DAILY 30 days trazodone 25 mg (1/2 x 50 mg) PO DAILY 30 days Tobacco use date assessed: 09/28/23 Dental Screening Dental Screen Date: 09/28/23 [facility] 01/12 abdominal pain HPI Details Patient is a 38-year-old female here today for a ER follow-up visit ? Patient has a past medical history significant for type 1 diabetes complicated by gastroparesis awaiting gastric pacemaker, nephropathy, CKD stage 3, retinal hemorrhage, chronic anemia. Patient recently seen at the [place] ER for abdominal pain and flank pain. No significant findings, has had multiple CTs of her abdomen without significant findings. She has been seen at [facility] and [facility] for abdominal pain and left flank pain no left AMA both times. Concerns--> she reports having chest pain that comes and goes since moving out of her apartment. She believes her intermittent chest pains or musculoskeletal related. Type 1 diabetes complicated by gastroparesis and CKD stage 3: Patient continues on insulin therapy with good effect on her sugars. Today's A1c is 6.4 She does CKD stage 3 likely secondary to her diabetes. Unfortunately continues to have multiple ER visits due to abdominal pains most likely secondary to her gastroparesis.? She does have an upcoming appointment with Dr. York in [facility]. Of note she does need to get an upper GI series before seeing surgeon. [facility] Medical History Mesenteric ischemia Chronic pain disorder Iron deficiency anemia GERD without esophagitis Gastroparesis Nausea Hordeolum externum of right eye Chronic kidney disease Anxiety Diabetes Hypertension Surgical History Hx of right BKA History of right cataract surgery Family History Father Hyperlipidemia Mother Stomach cancer Sister Diabetes Mental health disorder Social History Housing: Apartment Alcohol intake: never Patient Tobacco Use Status: Never used Tobacco e-Cigarette/Vaping Use: Never Used Second Hand Smoke Exposure: No Substance Use Type: Marijuana Advance Directives Date on File: 02/09/21 service: No Current occupational status: employed and disabled 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 Matt Daniels, Caroline Rodriguez, Geovani Hylton and colleagues, with an educational jolynn from [employer]. Review of Systems Const Denies headache(s) Eyes Denies loss of vision ENT Denies vertigo, Denies dizziness, Denies headache(s) and Denies sore throat Card Denies chest pain, Denies leg edema and Denies lightheadedness Resp Denies cough, Denies hemoptysis and Denies wheezing GI Denies abdominal pain, Denies melena, Denies constipation, Denies diarrhea and Denies vomiting Denies urinary frequency, Denies dysuria and Denies urinary urgency Musc Denies arthralgias, Denies joint swelling, Denies numbness and Denies tingling Neuro Denies Abnormal speech present, Denies behavioral changes, Denies vertigo, Denies dizziness, Denies headache(s), Denies loss of vision, Denies memory loss, Denies numbness and Denies tingling Psych Denies anxiety, Denies behavioral changes, Denies depression, Denies memory loss and Denies panic attacks Soto/Lymph Denies easy bleeding and Denies easy bruising Aller/Immun Denies wheezing Physical exam (Primary Care) Vital Signs: Last Vital Signs Pulse 89 01/25/24 09:51 BP 146/84 H 01/25/24 09:51 Pulse Ox 99 01/25/24 09:51 Oxygen Delivery Method Room Air 01/25/24 09:51 BMI result Body Mass Index 27.5 Tobacco/Smoking Status: Tobacco use Status Tobacco use date assessed 09/28/23 01/25/24 09:54 Patient Tobacco Use Status Never used Tobacco 01/25/24 09:54 e-Cigarette/Vaping Use Never Used 01/25/24 09:54 Thrive Assessment: Date of Thrive Assessment Date Thrive assessed 09/28/23 01/25/24 09:54 Const General: healthy appearing, no acute distress, alert and awake Nutritional Appearance: well nourished Orientation/consciousness: oriented to person, oriented to place and oriented to time HENMT Ears: TM's normal bilaterally General nose exam: Normal nasal mucous membranes and turbinates present Eyes Conjunctivae: conjunctivae normal Sclerae: sclerae normal Pupils: Equal, round and reactive pupils present Neck Neck: Yes no lymphadenopathy and Yes no JVD Thyroid: Thyroid normal Carotids: no bruits Resp Effort & Inspection: normal respiratory effort and not tachypneic Auscultation: no crackles, no rales, no rhonchi and no wheezes Cardio Rate: regular rate Rhythm: regular rhythm Heart sounds: no murmurs and normal S1 and S2 GI Palpation (GI): Soft to palpation, nontender, no hepatomegaly and no splenomegaly Auscultation: normal bowel sounds Skin General skin exam: no rashes or lesions noted and dry skin Neuro General: oriented to person, oriented to place and oriented to time Cranial nerves: Yes Equal, round and reactive pupils present Speech: No Abnormal speech present Gait exam (Neuro): Normal gait present Motor exam (neuro): no tremor noted Extrem Right upper extremity: full ROM Left upper extremity: full ROM Right lower extremity: full ROM; no edema Left lower extremity: full ROM; no edema Psych Mental Status: mental status grossly normal Speech and movement: Normal speech and movement present Affect: normal affect Attitude: cooperative Thought process: Normal thought process present Results AMB Hemoglobin A1c AMB Hemoglobin A1c 6.4 % Last Edit by SHASHA Summers on 01/25/24 10:01 Assessment and Plan Assessment & Plan (1) Type 1 diabetes: Code(s): E10.9 - Type 1 diabetes mellitus without complications Qualifiers: Diabetes mellitus complication status: with neurologic complications Diabetes mellitus complication detail: with polyneuropathy Qualified Code(s): E10.42 - Type 1 diabetes mellitus with diabetic polyneuropathy Plan: Patient's type 1 diabetes well controlled with A1c at 6.4. Continue current diabetic insulin regime. She reports blood sugars at home have been more stable. 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 She is willing to speak with a flight operation coordinator about diabetic diet related to gastroparesis. (3) CKD stage 3 due to type 1 diabetes mellitus: Code(s): E10.22 - Type 1 diabetes mellitus with diabetic chronic kidney disease; N18.30 - Chronic kidney disease, stage 3 unspecified Plan: Noted to CKD and most recent labs, likely related to type 1 diabetes. Will start ARB for renal protection. Continue to follow renal functions (4) Atypical chest pain: Code(s): R07.89 - Other chest pain Plan: Patient's signs symptoms most consistent with atypical type chest pain. She did move out of her apartment down to [place] and living with a friend temporarily. She believes that her intermittent left-sided chest pains are related to musculoskeletal etiology for recently moving. Will hold off on cardiac testing at this time. Orders: Orders AMB Hemoglobin A1c Today E11.22 - Type 2 diabetes mellitus with diabetic chronic kidney disease, N18.2 - Chronic kidney disease, stage 2 (mild) Medications: Refilled trazodone 25 mg (1/2 x 50 mg) PO DAILY 30 days 15 tabs 3RF G47.00 - Insomnia, unspecified insulin glargine 22 units (0.22 mL) subcut BEDTIME 30 days 15 mL 0RF E10.42 - Type 1 diabetes mellitus with diabetic polyneuropathy insulin lispro 4 - 5 units (0.04 - 0.05 mL) subcut TIDAC 30 days 15 mL 0RF E10.42 - Type 1 diabetes mellitus with diabetic polyneuropathy Discontinued oxycodone Partial Fill upon patient request. 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
== END 2024-01-25 12:35 | disposition home or self-care (01) ==
PROVIDERS: PCP Physician Assistant; Visit Provider Physician Assistant
DX: E10.22 Type 1 diabetes mellitus with diabetic chronic kidney disease (principal); N18.30 Chronic kidney disease, stage 3 unspecified; Z79.4 Long term (current) use of insulin; R07.89 Other chest pain
CPT/HCPCS: 83036; 99214

== ENCOUNTER 2024-02-26 08:52 | Outpatient (AMB) | payer OTHER, SELFPAY ==
--- NOTE | 2024-02-26 09:07 | MHC.PC.OV ---
Vital Signs 02/26/24 09:08 Height 5 ft 8 in Weight 193 lb 8 oz BMI 29.4 BP 122/72 Blood Pressure Location Lt brachial Position Sitting Pulse 87 Pulse Source Pulse Oximeter Pulse Oximetry (%) 99 Oxygen Delivery Method Room Air Intake Visit Reasons: HDF from CT Intake Note: Patient is here for hospital discharge follow up. Patient was discharged from [facility] on 02/22/24. Pt decline flu shot today. Cafe Cook Required: No Case Briefer: Not Required per policy Accompanied by: Self / Same As Patient Allergies morphine [MORPHINE] Allergy (Unknown, Verified 02/26/24 09:26) HIVES raspberry [Raspberry] Allergy (Unknown, Verified 02/26/24 09:26) HIVES nitrofurantoin [From Macrobid] Adverse Reaction (Unknown, Verified 02/26/24 09:26) GI side effects Medication List - Last Reconciled 02/26/24 by Dariusz Garcia PA-C blood-glucose meter,continuous (Dexcom G7 Administrative Assistant Receptionist) As directed blood-glucose sensor (Dexcom G7 Sensor device) As directed cyclobenzaprine 10 mg PO TID PRN insulin glargine 22 units (0.22 mL) subcut BEDTIME 30 days insulin lispro 4 - 5 units (0.04 - 0.05 mL) subcut TIDAC 30 days losartan 25 mg PO DAILY 90 days ondansetron HCl 4 mg PO Q6H PRN pen needle, diabetic (BD Rylee 2nd Gen Pen Needle) As directed sertraline 50 mg PO DAILY 30 days trazodone 25 mg (1/2 x 50 mg) PO DAILY 30 days Tobacco use date assessed: 02/26/24 Dental Screening Dental Screen Date: 09/28/[address] HPI Details Patient is a 38-year-old female here today for a ER follow-up visit ? Patient has a past medical history significant for type 1 diabetes complicated by gastroparesis awaiting gastric pacemaker, nephropathy, CKD stage 3, retinal hemorrhage, chronic anemia. Patient recently seen at the [place] ER for abdominal pain and vomiting . She was found to have an acute kidney injury and was given IV fluids. Unfortunately left AMA without full evaluation. She reports she is still has some mild abdominal pain and vomiting episodes though has somewhat improved since her ER evaluation. CHRONIC MEDICAL CONDITIONS. Type 1 diabetes complicated by gastroparesis and CKD stage 3: Patient continues on insulin therapy with good effect on her sugars. She does CKD stage 3 likely secondary to her diabetes. Unfortunately continues to have multiple ER visits due to abdominal pains most likely secondary to her gastroparesis.? She does have an upcoming appointment with Dr. York in [facility]. Of note she does need to get an upper GI series before seeing surgeon [facility] Medical History Mesenteric ischemia Chronic pain disorder Iron deficiency anemia GERD without esophagitis Gastroparesis Nausea Hordeolum externum of right eye Chronic kidney disease Anxiety Diabetes Hypertension Surgical History Hx of right BKA History of right cataract surgery Family History Father Hyperlipidemia Mother Stomach cancer Sister Diabetes Mental health disorder Social History Housing: Apartment Alcohol intake: never Patient Tobacco Use Status: Never used Tobacco e-Cigarette/Vaping Use: Never Used Second Hand Smoke Exposure: No Substance Use Type: Marijuana Substance Use Frequency: Daily Advance Directives Date on File: 02/09/21 service: No Current occupational status: employed and disabled 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 Matt Daniels, Caroline Rodriguez, Geovani Hylton and colleagues, with an educational jolynn from [employer]. Review of Systems Const Denies headache(s) Eyes Denies loss of vision ENT Denies vertigo, Denies dizziness, Denies headache(s) and Denies sore throat Card Denies chest pain, Denies leg edema and Denies lightheadedness Resp Denies cough, Denies hemoptysis and Denies wheezing GI Denies abdominal pain, Denies melena, Denies constipation, Denies diarrhea and Denies vomiting Denies urinary frequency, Denies dysuria and Denies urinary urgency Musc Denies arthralgias, Denies joint swelling, Denies numbness and Denies tingling Neuro Denies Abnormal speech present, Denies behavioral changes, Denies vertigo, Denies dizziness, Denies headache(s), Denies loss of vision, Denies memory loss, Denies numbness and Denies tingling Psych Denies anxiety, Denies behavioral changes, Denies depression, Denies memory loss and Denies panic attacks Soto/Lymph Denies easy bleeding and Denies easy bruising Aller/Immun Denies wheezing Physical exam (Primary Care) Vital Signs: Last Vital Signs Pulse 87 02/26/24 09:08 BP 122/72 02/26/24 09:08 Pulse Ox 99 02/26/24 09:08 Oxygen Delivery Method Room Air 02/26/24 09:08 BMI result Body Mass Index 29.4 Tobacco/Smoking Status: Tobacco use Status Tobacco use date assessed 02/26/24 02/26/24 09:14 Patient Tobacco Use Status Never used Tobacco 02/26/24 09:14 e-Cigarette/Vaping Use Never Used 02/26/24 09:14 Thrive Assessment: Date of Thrive Assessment Date Thrive assessed 09/28/23 02/26/24 09:14 Const General: healthy appearing, no acute distress, alert and awake Nutritional Appearance: well nourished Orientation/consciousness: oriented to person, oriented to place and oriented to time HENMT Ears: TM's normal bilaterally General nose exam: Normal nasal mucous membranes and turbinates present Eyes Conjunctivae: conjunctivae normal Sclerae: sclerae normal Pupils: Equal, round and reactive pupils present Neck Neck: Yes no lymphadenopathy and Yes no JVD Thyroid: Thyroid normal Carotids: no bruits Resp Effort & Inspection: normal respiratory effort and not tachypneic Auscultation: no crackles, no rales, no rhonchi and no wheezes Cardio Rate: regular rate Rhythm: regular rhythm Heart sounds: no murmurs and normal S1 and S2 GI Palpation (GI): Soft to palpation, nontender, no hepatomegaly and no splenomegaly Auscultation: normal bowel sounds Skin General skin exam: no rashes or lesions noted and dry skin Neuro General: oriented to person, oriented to place and oriented to time Cranial nerves: Yes Equal, round and reactive pupils present Speech: No Abnormal speech present Gait exam (Neuro): Normal gait present Motor exam (neuro): no tremor noted Extrem Right upper extremity: full ROM Left upper extremity: full ROM Right lower extremity: full ROM; no edema Left lower extremity: full ROM; no edema Psych Mental Status: mental status grossly normal Speech and movement: Normal speech and movement present Affect: normal affect Attitude: cooperative Thought process: Normal thought process present Coding Level of Care Code Est Pt Level 3 (79941) Diagnoses 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 She recently had a GI event when she presented to [facility]. She was found to have acute kidney injury with a creatinine above 2 .0. She got IV fluids and left AMA. She does admit to smoking marijuana twice a day and we did discuss a possible phenomenon called marijuana hyperemesis. She will try to use less marijuana and transitioned to edible formation. (2) Type 1 diabetes: Code(s): E10.9 - Type 1 diabetes mellitus without complications Category: Medical Qualifiers: Diabetes mellitus complication status: with neurologic complications Diabetes mellitus complication detail: with polyneuropathy Qualified Code(s): E10.42 - Type 1 diabetes mellitus with diabetic polyneuropathy Plan: Patient has been a long-time type 1 diabetic and currently not followed by an coder. She reports she is able to keep her sugars under control reporting a blood sugar of 72 this morning. Medications: New omeprazole 20 mg PO DAILY 15 days 15 caps 0RF E13.43 - Other specified diabetes mellitus with diabetic autonomic (poly)neuropathy ondansetron 8 mg PO Q12H 15 days 30 tabs 0RF E13.43 - Other specified diabetes mellitus with diabetic autonomic (poly)neuropathy
[2024-02-26 09:08] VITALS: BP 122/72; PULSE 87; O2SAT 99; BMI 29.4
== END 2024-02-26 09:33 | disposition home or self-care (01) ==
PROVIDERS: PCP Physician Assistant; Visit Provider Physician Assistant
DX: E10.42 Type 1 diabetes mellitus with diabetic polyneuropathy (principal)

== ENCOUNTER → 2024-02-26 08:52 | Outpatient (BNVA) | payer OTHER, SELFPAY | PROVIDERS: PCP Physician Assistant; Visit Provider Physician Assistant | DX: E13.43 Other specified diabetes mellitus with diabetic autonomic (poly)neuropathy (principal) | CPT/HCPCS: 99212 ==

== ENCOUNTER 2024-04-10 09:46 | Outpatient (AMB) | payer OTHER, SELFPAY ==
--- NOTE | 2024-04-10 09:58 | A.OFFPC_ITS ---
Vital Signs 3 04/10/24 10:03 Height 5 ft 8 in Weight 184 lb 2 oz BMI 28.0 BP 122/80 Blood Pressure Location Lt brachial Position Sitting Pulse 80 Pulse Source Pulse Oximeter Pulse Oximetry (%) 99 Oxygen Delivery Method Room Air Intake Visit Reasons: [facility] 02/22 Vomiting Intake Note: The patient is here for a follow-up after a visit to [facility] for vomiting. Today's concern is swelling in the right eye, which appears to be infected. Flame Burner Required: No Accompanied by: Self / Same As Patient Allergies morphine [MORPHINE] Allergy (Unknown, Verified 04/10/24 10:07) HIVES raspberry [Raspberry] Allergy (Unknown, Verified 04/10/24 10:07) HIVES nitrofurantoin [From Macrobid] Adverse Reaction (Unknown, Verified 04/10/24 10:07) GI side effects Tobacco use date assessed: 02/26/24 Dental Screening Dental Screen Date: 09/28/23 HPI HPI Comments 2 History of Present Illness0 Details 38 y/o female patient who presents to [facility] for HDF. She was admitted at [facility] on 03/24/24 and discharged home on 03/25/24. She was admitted due to vomiting. Today Pt c/o right eye injury that happened 2 days ago, and this morning woke up with the right eye swollen shot and painful. Pt not sure how she injured her eye. [facility] Medical History Mesenteric ischemia Chronic pain disorder Iron deficiency anemia GERD without esophagitis Gastroparesis Nausea Hordeolum externum of right eye Chronic kidney disease Anxiety Diabetes Hypertension Surgical History Hx of right BKA History of right cataract surgery Family History Father Hyperlipidemia Mother Stomach cancer Sister Diabetes Mental health disorder Social History Housing: Apartment Alcohol intake: never Patient Tobacco Use Status: Never used Tobacco e-Cigarette/Vaping Use: Never Used Second Hand Smoke Exposure: No Substance Use Type: Marijuana Advance Directives Date on File: 02/09/21 service: No Current occupational status: employed and disabled 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 Matt Daniels, Caroline Rodriguez, Geovani Hylton and colleagues, with an educational jolynn from [employer]. Review of Systems Const All systems reviewed & are unremarkable except as noted in HPI and below Physical exam (Primary Care) Vital Signs: Last Vital Signs Pulse 80 04/10/24 10:03 BP 122/80 04/10/24 10:03 Pulse Ox 99 04/10/24 10:03 Oxygen Delivery Method Room Air 04/10/24 10:03 BMI result Body Mass Index 28.0 Tobacco/Smoking Status: Tobacco use Status Tobacco use date assessed 02/26/24 04/10/24 09:58 Patient Tobacco Use Status Never used Tobacco 04/10/24 09:58 e-Cigarette/Vaping Use Never Used 04/10/24 09:58 Thrive Assessment: Date of Thrive Assessment Date Thrive assessed 09/28/23 04/10/24 09:58 Const General: cooperative and no acute distress Nutritional Appearance: overweight Orientation/consciousness: patient oriented x3 HENMT Head: Yes normocephalic Ears: external ears normal General nose exam: Normal external nose present Face and sinus: Yes sinuses nontender Mouth: moist mucous membranes Eyes Other: Right eye swollen shot, unable to visualize Eyes/upper lids images: 2 1. right eye swollen shot. Resp Effort & Inspection: normal respiratory effort Auscultation: clear to auscultation bilaterally Cardio Heart sounds: S1 normal heart sound present and S2 normal heart sound present Neuro General: patient oriented x3, gait normal and moves all extremities Office Procedures Flu Questionnaire Does the patient have a severe egg allergy?: No Immunizations Fluarix Triv [id number] (PF) 45 mcg (15 mcg x 3)/0.5 mL IM syringe Performing Provider: Jennyfer Gruber NP [facility] Documented (not given) by: SHASHA Summers on 11/27/24 10:06 Reason Not Given: Patient Refused Coding Level of Care Code Est Pt Level 4 (71601) Diagnoses Hospital discharge follow-up Z09 Periorbital edema of right eye R60.0 Time Spent (min) 20 Assessment & Plan Assessment & Plan (1) Hospital discharge follow-up: Code(s): Z09 - Encounter for follow-up examination after completed treatment for conditions other than malignant neoplasm Plan: Stable condition. (2) Periorbital edema of right eye: Code(s): R60.0 - Localized edema Plan: Called Dr. Roldan Smoked Meat Preparer, patient has an appointment today at 1pm. Orders: Orders 2 Influenza [id number] Immunization Today Z23 - Encounter for immunization
[2024-04-10 10:03] VITALS: BP 122/80; PULSE 80; O2SAT 99; BMI 28.0
== END 2024-04-10 10:48 | disposition home or self-care (01) ==
PROVIDERS: PCP Physician Assistant; Visit Provider Nurse Practitioner Family
DX: Z09 Encounter for follow-up examination after completed treatment for conditions other than malignant neoplasm (principal); R60.0 Localized edema; Z23 Encounter for immunization

== ENCOUNTER → 2024-04-10 09:46 | Outpatient (BNVA) | payer OTHER, SELFPAY | PROVIDERS: PCP Physician Assistant; Visit Provider Nurse Practitioner Family | DX: Z09 Encounter for follow-up examination after completed treatment for conditions other than malignant neoplasm (principal); R60.0 Localized edema | CPT/HCPCS: 90471; 99212 ==

== ENCOUNTER 2024-05-18 22:57 | Emergency (ER) | payer OTHER, SELFPAY ==
--- NOTE | ~2024-05-18 | XR_ITS ---
CLINICAL HISTORY: chest pain, recent viral illness 1 view chest x-ray. Comparison: CR/SR - XR CHEST 2V - 07/10/23 00:18 EST Findings: The lungs appear clear. There is no consolidation, effusion, or nodule identified. Cardiomediastinal silhouette is within normal limits. IMPRESSION: No acute cardiopulmonary abnormality. This document has been electronically signed by: Dominic Frank MD on 05/18/2024 23:53:30
[2024-05-18 22:58] VITALS: BP 112/55; PULSE 95; RESP 18; TEMP 36.3; O2SAT 98; BMI 25.8
--- NOTE | 2024-05-18 23:02 | ECG_ITS ---
Test Reason : CP Blood Pressure : / mmHG Vent. Rate : 090 BPM Atrial Rate : 090 BPM P-R Int : 132 ms QRS Dur : 092 ms QT Int : 352 ms P-R-T Axes : 044 -36 029 degrees QTc Int : 430 ms Normal sinus rhythm Left axis deviation Minimal voltage criteria for LVH, may be normal variant ( Luis product ) Abnormal ECG When compared with ECG of 19-DEC-2022 09:08, Criteria for Septal infarct are no longer Present Referred By: Generic ED Physician Electronically Signed By:BRENT PACKER MD
[2024-05-18 23:31] LABS: MANUAL DIFF FLAG NO
[2024-05-18 23:33] LABS: Basophils Absolute Auto 0.1 X10*3/uL (0.0-0.2); Eosinophils Absolute Auto 0.2 X10*3/uL (0.0-0.4); Eosinophils Percent Auto 3.9 % (0-4); Hematocrit 24.2 % (37.0-47.0); Hemoglobin 7.1 g/dl (12.0-16.0); Imm Gran Abs Auto 0.02 X10*3/uL (0.00-0.03); Imm Gran Pct Auto 0.3 % (0.0-0.4); Lymphocytes Absolute Auto 2.4 X10*3/uL (1.2-4.9); Lymphocytes Percent Auto 38.8 % (20-40); Mean Corpuscular HGB Conc 29.3 g/dl (31.0-35.0); Mean Corpuscular Hemoglobin 22.3 pg (27.0-33.0); Mean Corpuscular Volume 76.1 fL (80.0-98.0); Mean Platelet Volume 9.1 fL (9.4-12.3); Monocytes Absolute Auto 0.5 X10*3/uL (0.1-1.2); Monocytes Percent Auto 7.9 % (2-11); Neutrophils Absolute Auto 2.9 x10*3/uL (2.0-8.3); Neutrophils Percent Auto 48.1 % (45-73); Platelet Count 322 X10*3/uL (160-400); Red Blood Count 3.18 X10*6/uL (4.20-5.50); White Blood Count 6.1 X10*3/uL (4.8-10.8)
[2024-05-18 23:52] LABS: Anion Gap 12 (12-20); Blood Urea Nitrogen 15 mg/dL (9-16); Calcium 8.6 mg/dL (8.4-10.2); Carbon Dioxide 19 mmol/L (22-29); Chloride 111 mmol/L (96-108); Creatinine Clr Calc Pharmacy 39.6; Estimated Glomerular Filt Rate 27; Glucose Random 159 mg/dL (60-115); Potassium 4.5 mmol/L (3.3-5.1); Sodium 137 mmol/L (135-145)
[2024-05-19 00:01] LABS: Troponin-I High Sensitivity < 2.7 ng/L (<3.5-17.0)
--- OUTSIDE RECORDS SUMMARY | 2024-05-19 01:03 | XMS_ITS ---
Author Name [facility] Organization Unknown Results Test Name/Text Value Interpretation Date Range Source HCG SerPl-aCnc 5mIU/mL Normal [id number] [facility] AST SerPl-cCnc 20unit/L Normal [id number] 5 - 40 [facility] ALT SerPl-cCnc 8unit/L Normal [id number] 7 - 52 [facility] Creat SerPl-mCnc 1.4mg/dL Above high normal [id number] 0. 5 - 1 [facility] CO2 SerPl-sCnc 20mmol/L Below low normal [id number] 24 - 32 [facility] eGFRcr SerPlBld CKD-EPI 2020 49mL/min/1.73m 2 Below low normal [id number] - [facility] Potassium SerPl-sCnc 5.2mmol/L Above high normal [id number] 3.5 - 5.1 [facility] Bilirub SerPl-mCnc 0.3mg/dL Normal [id number] 0.3 - 1 [facility] Calcium SerPl-mCnc 8.8mg/dL Normal [id number] 8.4 - 10 .2 [facility] BUN SerPl-mCnc 12mg/dL Normal [id number] 7 - 17 [facility] ALP SerPl-cCnc 116unit/L Above high normal [id number] 34 - 104 [facility] Chloride SerPl-sCnc 110mmol/L Above high normal [id number] 98 - 107 [facility] BUN/Creat SerPl 8.6 Below low normal [id number] 12 - 20 [facility] Albumin SerPl-mCnc 4.1g/dL Normal [id number] 3.5 - 5 [facility] Prot SerPl-mCnc 7.2g/dL Normal [id number] 6.4 - 8.5 [facility] Sodium SerPl-sCnc 135mmol/L Normal 135 - 145 [facility] Anion Gap SerPl-sCnc 5 Normal 5 - 14 [facility] Glucose SerPl-mCnc 125mg/dL Normal 70 - 199 [facility] Monocytes # Bld Auto 0.5K/mcL Normal 0 - 0.8 [facility] Neutrophils # Bld Auto 4.7K/mcL Normal 1.8 - 7.8 [facility] Eosinophil # Bld Auto 0.2K/mcL Normal 0 - 0.5 [facility] MCHC RBC Auto-mCnc 30.6g/dL Below low normal 3 2 - 36 [facility] Monocytes/leuk NFr Bld Auto 7% Normal 2 - 12 [facility] Basophils # Bld Auto 0.1K/mcL Normal 0 - 0.2 [facility] WBC # Bld Auto 7.1K/mcL Normal 4 - 10.5 [facility] Hct VFr Bld Auto 23.9% Below low normal 37 - 47 [facility] RDW RBC Auto-Rto 19.8% Above high normal 12 .1 - 16.2 [facility] PMV Bld Auto 7.2FL Below low normal 7.4 - [address] 1.4 [facility] Eosinophil/leuk NFr Bld Auto 2.7% Normal 0 - 6 [facility] MCH RBC Qn Auto 23.5pcg Below low normal 25 - 33 [facility] Basophils/leuk NFr Bld Auto 0.9% Normal 0 - 2 [facility] Lymphocytes # Bld Auto 1.6K/mcL Normal 1 - 3.2 [facility] RBC # Bld Auto 3.11M/mcL Below low normal 4.2 - 5.4 [facility] Neutrophils/leuk NFr Bld Auto 66.5% Normal 44 - 74 [facility] Platelet # Bld Auto 424K/mcL Normal 150 - 450 [facility] MCV RBC Auto 76.8FL Below low normal 78 - 10 0 [facility] Lymphocytes/leuk NFr Bld Auto 22.9% Normal 20 - 48 [facility] Hgb Bld-mCnc 7.3g/dL Below low normal 12.5 - 16 [facility] Glucose Bld-mCnc 143mg/dL Normal [facility] HbA1c MFr Bld 6.6% Above high normal [id number] - 5.7 [facility] Glucose Bld-mCnc 114mg/dL Normal 70 - 199 [facility] Glucose Bld-mCnc 112mg/dL Normal 70 - 199 [facility] Phosphate SerPl-mCnc 2.1mg/dL Below low normal [id number] 2.5 - 4.5 [facility] AST SerPl-cCnc 15unit/L Normal [id number] 5 - 40 [facility] ALT SerPl-cCnc 4unit/L Below low normal [id number] 7 - 5 2 [facility] Creat SerPl-mCnc 1.5mg/dL Above high normal [id number] 0. 5 - 1 [facility] CO2 SerPl-sCnc 24mmol/L Normal [id number] 24 - 32 [facility] eGFRcr SerPlBld CKD-EPI 1 45mL/min/1.73m 2 Below low normal [id number] - [facility] Potassium SerPl-sCnc 3.4mmol/L Below low normal [id number] 3.5 - 5.1 [facility] Bilirub SerPl-mCnc 0.3mg/dL Normal [id number] 0.3 - 1 [facility] Calcium SerPl-mCnc 8.8mg/dL Normal [id number] 8.4 - 10 .2 [facility] BUN SerPl-mCnc 11mg/dL Normal [id number] 7 - 17 [facility] ALP SerPl-cCnc 110unit/L Above high normal [id number] 34 - 104 [facility] Chloride SerPl-sCnc 101mmol/L Normal [id number] 98 - 107 [facility] BUN/Creat SerPl 7.3 Below low normal [id number] 12 - 20 [facility] Albumin SerPl-mCnc 4g/dL Normal [id number] 3.5 - 5 [facility] Prot SerPl-mCnc 7.4g/dL Normal 6.4 - 8.5 [facility] Sodium SerPl-sCnc 133mmol/L Below low normal [id number] 13 5 - 145 [facility] Anion Gap SerPl-sCnc 8 Normal 5 - 14 [facility] Glucose SerPl-mCnc 155mg/dL Normal [id number] 70 - 199 [facility] Magnesium SerPl-mCnc 1.7mg/dL Normal 1.7 - 2.8 [facility] Lactate BldV-sCnc 1.2mmol/L Normal [id number] 0.5 - 2.2 [facility] Monocytes # Bld Auto 0.4K/mcL Normal [id number] 0 - 0.8 [facility] Neutrophils # Bld Auto 3.9K/mcL Normal [id number] 1.8 - 7.8 [facility] Eosinophil # Bld Auto 0.1K/mcL Normal [id number] 0 - 0.5 [facility] MCHC RBC Auto-mCnc 30.5g/dL Below low normal [id number] 3 2 - 36 [facility] Monocytes/leuk NFr Bld Auto 7.7% Normal [id number] 2 - 12 [facility] Basophils # Bld Auto 0K/mcL Normal [id number] 0 - 0.2 [facility] WBC # Bld Auto 5.7K/mcL Normal [id number] 4 - 10.5 [facility] Hct VFr Bld Auto 26.1% Below low normal [id number] 37 - 47 [facility] RDW RBC Auto-Rto 19% Above high normal [id number] 12 .1 - 16.2 [facility] PMV Bld Auto 7.3FL Below low normal [id number] 7.4 - 1 1.4 [facility] Eosinophil/leuk NFr Bld Auto 2.6% Normal [id number] 0 - 6 [facility] MCH RBC Qn Auto 23.2pcg Below low normal [id number] 25 - 33 [facility] Basophils/leuk NFr Bld Auto 0.6% Normal [id number] 0 - 2 [facility] Lymphocytes # Bld Auto 1.1K/mcL Normal [id number] 1 - 3.2 [facility] RBC # Bld Auto 3.43M/mcL Below low normal [id number] 4.2 - 5.4 [facility] Neutrophils/leuk NFr Bld Auto 69.7% Normal [id number] 44 - 74 [facility] Platelet # Bld Auto 317K/mcL Normal [id number] 150 - 450 [facility] MCV RBC Auto 76.2FL Below low normal [id number] 78 - 10 0 [facility] Lymphocytes/leuk NFr Bld Auto 19.4% Below low normal [id number] 20 - 48 [facility] Hgb Bld-mCnc 8g/dL Below low normal [id number] 12.5 - 16 [facility] Benzodiaz Ur Ql Scn Negative Normal [id number] - [facility] fentaNYL Ur Ql Negative Normal [id number] - [facility] Barbiturates Ur Ql Scn Negative Normal [id number] - [facility] oxyCODONE Ur Ql Scn Negative Normal [id number] - [facility] Cannabinoids Ur Ql Scn Positive Abnormal [id number] - [facility] BZE Ur Ql Scn Negative Normal [id number] - [facility] Amphet Ur Ql Scn Negative Normal [id number] - [facility] PCP Ur Ql Scn Negative Normal [id number] - [facility] Opiates Ur Ql Scn Positive Abnormal [id number] - [facility] Lactate BldV-sCnc 1.3mmol/L Normal [id number] 0.5 - 2.2 [facility] Glucose Bld-mCnc 118mg/dL Normal [id number] 70 - 199 [facility] Lactate BldV-sCnc 1.2mmol/L Normal [id number] 0.5 - 2.2 [facility] pH Ur 6pH Normal [id number] 5 - 8 [facility] Prot Ur Strip-mCnc 100mg/dL Abnormal [id number] - [facility] Leukocyte esterase Ur Ql Strip Negative Normal [id number] - [facility] Mucous Threads #/area UrnS HPF Present Abnormal [id number] - [facility] Glucose Ur Ql 50mg/dL Abnormal [id number] - [facility] Nitrite Ur Ql Negative Normal [id number] - [facility] Hgb Ur Ql Small Abnormal [id number] - [facility] Color Ur Yellow Normal [id number] - [facility] Clarity Ur Clear Normal [id number] - [facility] Ketones Ur-mCnc Negative Normal [id number] - [facility] WBC #/area UrnS HPF 1/HPF Normal [id number] 0 - 5 [facility] Sp Gr Ur 1.027 Normal [id number] 1.005 - 1.03 [facility] RBC #/area UrnS HPF 1/HPF Normal [id number] 0 - 3 [facility] Squamous Epithelial, Urine 10/HPF Above high normal [id number] 0 - 5 [facility] Glucose Bld-mCnc 102mg/dL Normal [id number] 70 - 199 [facility] LACTIC ACID 2.4mmol/L Above high normal [id number] 0.5 - 2 .2 [facility] Glucose Bld-mCnc 219mg/dL Above high normal [id number] 70 - 199 [facility] SaO2 % BldV 98.2% Normal [id number] [facility] HCO3 BldV-sCnc 20.8mmol/L Normal 605430706153 [facility] Base excess BldV Calc-sCnc -5.3mmol/L Normal [id number] [facility] pH BldV 7.29pH Below low normal [id number] 7.35 - 7.4 5 [facility] pCO2 BldV 44mmHg Normal [id number] [facility] pO2 BldV 119mmHg Normal [id number] [facility] LACTIC ACID 2.7mmol/L Above high normal [id number] 0.5 - 2 .2 [facility] AST SerPl-cCnc 16unit/L Normal [id number] 5 - 40 [facility] ALT SerPl-cCnc 7unit/L Normal [id number] 7 - 52 [facility] ALP SerPl-cCnc 123unit/L Above high normal [id number] 34 - 104 [facility] Globulin Ser Calc-mCnc 3.6g/dL Above high normal [id number] 2.3 - 3.5 [facility] Bilirub Direct SerPl-mCnc 0mg/dL Normal [id number] 0 - 0.2 [facility] Albumin/Glob SerPl 1.2 [address] [id number] [facility] Albumin SerPl-mCnc 4.4g/dL Normal [id number] 3.5 - 5 [facility] Prot SerPl-mCnc 8g/dL Normal [id number] 6.4 - 8.5 [facility] Bilirub SerPl-mCnc 0.3mg/dL Normal [id number] 0.3 - 1 [facility] Ketone Bodies Negative Normal [id number] - [facility] Lipase SerPl-cCnc 33unit/L Normal [id number] 11 - 82 [facility] HCG Preg SerPl Ql Negative Normal - [facility] Monocytes # Bld Auto 0.3K/mcL Normal [id number] 0 - 0.8 [facility] Neutrophils # Bld Auto 6.3K/mcL Normal [id number] 1.8 - 7.8 [facility] Eosinophil # Bld Auto 0.2K/mcL Normal [id number] 0 - 0.5 [facility] MCHC RBC Auto-mCnc 31.4g/dL Below low normal [id number] 3 2 - 36 [facility] Monocytes/leuk NFr Bld Auto 3.8% Normal [id number] 2 - 12 [facility] Basophils # Bld Auto 0.1K/mcL Normal [id number] 0 - 0.2 [facility] WBC # Bld Auto 8K/mcL Normal [id number] 4 - 10.5 [facility] Hct VFr Bld Auto 28.9% Below low normal [id number] 37 - 47 [facility] RDW RBC Auto-Rto 19.5% Above high normal [id number] 12 .1 - 16.2 [facility] Eosinophil/leuk NFr Bld Auto 2.3% Normal [id number] 0 - 6 [facility] MCH RBC Qn Auto 24.1pcg Below low normal [id number] 25 - 33 [facility] Basophils/leuk NFr Bld Auto 1% Normal [id number] 0 - 2 [facility] Lymphocytes # Bld Auto 1.1K/mcL Normal [id number] 1 - 3.2 [facility] RBC # Bld Auto 3.77M/mcL Below low normal [id number] 4.2 - 5.4 [facility] Neutrophils/leuk NFr Bld Auto 78.8% Above high normal [id number] 44 - 74 [facility] Platelet # Bld Auto Normal [id number] [facility] MCV RBC Auto 76.8FL Below low normal [id number] 78 - 10 0 [facility] Lymphocytes/leuk NFr Bld Auto 14.1% Below low normal [id number] 20 - 48 [facility] Hgb Bld-mCnc 9.1g/dL Below low normal [id number] 12.5 - 16 [facility] HCG SerPl-aCnc 5mIU/mL Normal [id number] [facility] Troponin I SerPl HS-mCnc 2ng/L Normal [id number] 0 - 14 [facility] Calcium SerPl-mCnc 9.2mg/dL Normal [id number] 8.4 - 10 .2 [facility] BUN SerPl-mCnc 14mg/dL Normal [id number] 7 - 17 [facility] Creat SerPl-mCnc 1.5mg/dL Above high normal [id number] 0. 5 - 1 [facility] Chloride SerPl-sCnc 108mmol/L Above high normal [id number] 98 - 107 [facility] BUN/Creat SerPl 9.3 Below low normal [id number] 12 - 20 [facility] CO2 SerPl-sCnc 20mmol/L Below low normal [id number] 24 - 32 [facility] eGFRcr SerPlBld CKD-EPI 2020 45mL/min/1.73m 2 Below low normal [id number] - [facility] Potassium SerPl-sCnc 3.6mmol/L Normal [id number] 3.5 - 5.1 [facility] Sodium SerPl-sCnc 137mmol/L Normal [id number] 135 - 145 [facility] Anion Gap SerPl-sCnc 9 Normal [id number] 5 - 14 [facility] Glucose SerPl-mCnc 206mg/dL Above high normal [id number] 70 - 199 [facility] POC Glucose 132mg/dL Above high normal [id number] 65 - 99 [facility] POC Glucose 117mg/dL Above high normal [id number] 65 - 99 [facility] Osmolality SerPl 289mOsm/Kg Normal [id number] 275 - 305 [facility] Osmolality Ur 366mOsm/Kg Normal [id number] 50 - 1200 [facility] CCT POC Glucose 93mg/dL Normal [id number] 65 - 99 [facility] Calcium SerPl-mCnc 8.9mg/dL Normal [id number] 8.7 - 10 .5 [facility] BUN SerPl-mCnc 30mg/dL Above high normal [id number] 8 - 21 [facility] Creat SerPl-mCnc 2.3mg/dL Above high normal [id number] 0. 4 - 1.1 [facility] GFR/BSA.pred SerPlBld [id number] 27 Below low normal [id number] 59 - [facility] Chloride SerPl-sCnc 96mmol/L Below low normal [id number] 98 - 107 [facility] BUN/Creat SerPl 13Ratio Normal [id number] 10 - 25 H [facility] CO2 SerPl-sCnc 27mmol/L Normal 22 - 33 HH CCT Anion Gap Bld-sCnc 13 Normal 7 - 17 [facility] Potassium SerPl-sCnc 3.4mmol/L Normal 3.4 - 5.3 [facility] Glucose SerPl-mCnc 188mg/dL Above high normal [id number] 65 - 99 [facility] Sodium SerPl-sCnc 136mmol/L Normal [id number] 136 - 145 [facility] Hgb A1c MFr Bld 6.2% Above high normal [id number] - 5 .7 [facility] Est. average glucose Bld gHb Est-mCnc 131mg/dL Normal [id number] [facility] POC Glucose 173mg/dL Above high normal [id number] 65 - 99 [facility] Creat Ur-mCnc 426mg/dL Normal [id number] [facility] CT Sodium Ur-sCnc 32mmol/L Normal [id number] HH CCT B-OH-Butyr SerPl-sCnc 0.12mmol/L Normal [id number] - 0.28 [facility] POC Glucose 118mg/dL Above high normal [id number] 65 - 99 [facility] RBC num/area UrnS HPF 2perhpf Normal [id number] 0 - 4 [facility] Hyaline Casts num/area UrnS LPF 11PERLPF Above high normal [id number] 0 - 4 [facility] WBC num/area UrnS HPF 1perhpf Normal [id number] 0 - 4 [facility] Squamous num/area UrnS HPF 5PERHPF Normal [facility] Ketones Ur Strip-mCnc Normal - [facility] Prot Ur Strip-mCnc Abnormal - [facility] Leukocyte esterase Ur Ql Strip Normal - [facility] Color Ur Normal [facility] pH Ur Strip 5 Normal 5 - 8 [facility] Sp Gr Ur Strip 1.018 Normal 1.003 - 1.03 [facility] Nitrite Ur Ql Strip Normal - [facility] Glucose Ur Strip-mCnc 0mg/dL Normal 0 - 99 [facility] Hgb Ur Ql Strip Normal - H [facility] Bilirub Ur Strip-mCnc Normal - [facility] Clarity Ur Normal [facility] Ethanol SerPl-mCnc 11mg/dL Normal [id number] - 11 [facility] AST SerPl-cCnc 25U/L Normal 10 - 50 [facility] CCT ALT SerPl-cCnc 14U/L Normal 10 - 50 [facility] CCT Creat SerPl-mCnc 2.6mg/dL Above high normal 0. 4 - 1.1 [facility] Globulin Ser Calc-mCnc 3.4g/dL Normal 1.5 - 3.9 [facility] CO2 SerPl-sCnc 23mmol/L Normal 22 - 33 [facility] CCT Albumin/Glob SerPl 1.3Ratio Normal 1 - 3 [facility] Anion Gap Bld-sCnc 18 Above high normal 7 - 17 [facility] Potassium SerPl-sCnc 3.4mmol/L Normal 3.4 - 5.3 [facility] Bilirub SerPl-mCnc 0.2mg/dL Normal 0.2 - 1 [facility] Calcium SerPl-mCnc 9mg/dL Normal 8.7 - 10 .5 [facility] BUN SerPl-mCnc 33mg/dL Above high normal 8 - 21 [facility] ALP SerPl-cCnc 115U/L Normal 32 - 122 [facility] CCT GFR/BSA.pred SerPlBld [id number] 23 Below low normal 59 - [facility] Chloride SerPl-sCnc 93mmol/L Below low normal 98 - 107 [facility] BUN/Creat SerPl 13Ratio Normal 10 - 25 H [facility] Albumin SerPl-mCnc 4.4g/dL Normal 3.5 - 5 [facility] Prot SerPl-mCnc 7.8g/dL Normal 6.3 - 8.3 H [facility] Glucose SerPl-mCnc 209mg/dL Above high normal 65 - 99 [facility] Sodium SerPl-sCnc 134mmol/L Below low normal 13 6 - 145 [facility] Lipase SerPl-cCnc 250U/L Above high normal 1 3 - 60 [facility] Neutrophils num Bld Auto 4.85Thou/uL Normal [id number] 2 - 7.5 [facility] Monocytes num Bld Auto 0.59Thou/uL Normal 0.2 - 1.5 [facility] Eosinophil num Bld Auto 0.16Thou/uL Normal [id number] 0 - 0.7 [facility] WBC num Bld Auto 7.7Thou/uL Normal [id number] 4 - 11 [facility] MCHC RBC Auto-mCnc 30.5g/dL Normal 30 - 36 [facility] Monocytes/leuk NFr Bld Auto 7.7% Normal [id number] [facility] Hct VFr Bld Auto 27.9% Below low normal [id number] 35 - 47 [facility] RBC num Bld Auto 3.57Mil/uL Below low normal [id number] 4 - 5.4 [facility] RDW RBC Auto-Rto 17.8% Above high normal [id number] 11 .5 - 14.5 [facility] PMV Bld Auto 9.5fL Normal [id number] 7.5 - 12.[address] Eosinophil/leuk NFr Bld Auto 2.1% Normal [id number] [facility] MCH RBC Qn Auto 23.8pg Below low normal [id number] 26 - 34 [facility] Basophils/leuk NFr Bld Auto 0.8% Normal [id number] [facility] Basophils num Bld Auto 0.06Thou/uL Normal [id number] 0 - 0.2 [facility] Platelet num Bld Auto 406Thou/uL Normal 150 - 450 [facility] Neutrophils/leuk NFr Bld Auto 62.8% Normal [id number] [facility] MCV RBC Auto 78fL Below low normal 80 - 10 0 [facility] Lymphocytes/leuk NFr Bld Auto 26.3% Normal [facility] Lymphocytes num Bld Auto 2.03Thou/uL Normal 1.5 - 4.5 [facility] Imm Granulocytes/leuk NFr Bld Auto 0.3% Normal [id number] [facility] Hgb Bld-mCnc 8.5g/dL Below low normal 11.7 - 15.7 [facility] Imm Granulocytes num Bld Auto 0.02Thou/uL Normal 0 - 0.1 [facility] AST SerPl-cCnc 17U/L Normal [id number] 10 - 50 HH CCT ALT SerPl-cCnc 13U/L Normal [id number] 10 - 50 HH CCT Creat SerPl-mCnc 1.9mg/dL Above high normal [id number] 0. 4 - 1.1 [facility] Globulin Ser Calc-mCnc 3.5g/dL Normal [id number] 1.5 - 3.9 [facility] CO2 SerPl-sCnc 24mmol/L Normal [id number] 22 - 33 HH CCT Albumin/Glob SerPl 1.2Ratio Normal [id number] 1 - 3 [facility] Anion Gap Bld-sCnc 13 Normal [id number] 7 - 17 [facility] Potassium SerPl-sCnc 3.7mmol/L Normal [id number] 3.4 - 5.3 [facility] Bilirub SerPl-mCnc 0.2mg/dL Below low normal [id number] 0 .2 - 1 [facility] Calcium SerPl-mCnc 8.9mg/dL Normal [id number] 8.7 - 10 .5 [facility] BUN SerPl-mCnc 21mg/dL Normal [id number] 8 - 21 HH CCT ALP SerPl-cCnc 114U/L Normal [id number] 32 - 122 HH CCT GFR/BSA.pred SerPlBld [id number] 34 Below low normal [id number] 59 - [facility]CT Chloride SerPl-sCnc 99mmol/L Normal [id number] 98 - 107 [facility] BUN/Creat SerPl 11Ratio Normal [id number] 10 - 25 H [facility] Albumin SerPl-mCnc 4.2g/dL Normal [id number] 3.5 - 5 [facility] Prot SerPl-mCnc 7.7g/dL Normal [id number] 6.3 - 8.3 H [facility] Glucose SerPl-mCnc 183mg/dL Above high normal [id number] 65 - 99 [facility] Sodium SerPl-sCnc 136mmol/L Normal [id number] 136 - 145 [facility] Neutrophils num Bld Auto 4.71Thou/uL Normal [id number] 2 - 7.5 [facility] Monocytes num Bld Auto 0.58Thou/uL Normal [id number] 0.2 - 1.5 [facility] Eosinophil num Bld Auto 0.37Thou/uL Normal [id number] 0 - 0.7 [facility] WBC num Bld Auto 7.6Thou/uL Normal [id number] 4 - 11 [facility] MCHC RBC Auto-mCnc 29.3g/dL Below low normal 844543772527 3 0 - 36 [facility] Monocytes/leuk NFr Bld Auto 7.6% Normal [id number] [facility] Hct VFr Bld Auto 27.6% Below low normal [id number] 35 - 47 [facility] RBC num Bld Auto 3.37Mil/uL Below low normal [id number] 4 - 5.4 [facility] RDW RBC Auto-Rto 17% Above high normal [id number] 11 .5 - 14.5 [facility] PMV Bld Auto 9.5fL Normal [id number] 7.5 - 12.[address] Eosinophil/leuk NFr Bld Auto 4.9% Normal [id number] [facility] MCH RBC Qn Auto 24pg Below low normal 589050919544 26 - 34 [facility] Basophils/leuk NFr Bld Auto 0.7% Normal [id number] [facility] Basophils num Bld Auto 0.05Thou/uL Normal [id number] 0 - 0.2 [facility] Platelet num Bld Auto 411Thou/uL Normal [id number] 150 - 450 [facility] Neutrophils/leuk NFr Bld Auto 62% Normal [id number] CCT MCV RBC Auto 82fL Normal [id number] 80 - 100 [facility] T Lymphocytes/leuk NFr Bld Auto 24.4% Normal [id number] [facility] Lymphocytes num Bld Auto 1.85Thou/uL Normal [id number] 1.5 - 4.5 [facility] Imm Granulocytes/leuk NFr Bld Auto 0.4% Normal [id number] [facility] Hgb Bld-mCnc 8.1g/dL Below low normal [id number] 11.7 - 15.7 [facility] Imm Granulocytes num Bld Auto 0.03Thou/uL Normal [id number] 0 - 0.1 [facility] POC Glucose 234mg/dL Above high normal [id number] 65 - 99 [facility] History of Medication Use Medication Directions Dispensed Refills Start Date End Date Status HYDROmorphone (DILAUDID) 4 mg tablet Take 1 tablet (4 mg total) by mouth every 4 (four) hours if needed for severe pain. Max Daily Amount: 24 mg 4 05/14/99 99 active LORazepam (ATIVAN) injection 1 mg 1 mg, intravenous, Once, On Ally 04/11/24 at 1636, For 1 dose, Prior to IV use, lorazepam injection should be DILUTED with an equal volume of compatible solution; Rate of administration should NOT exceed 2 mg/min. 4 05/14/99 99 completed HYDROmorphone (DILAUDID) injection 1 mg 1 mg, intravenous, Once, On Ally 04/11/24 at 1714, For 1 dose 4 05/14/99 99 completed acetaminophen (TYLENOL) tablet 1,000 mg 1,000 mg, oral, Once, On Ally 04/11/24 at 1636, For 1 dose 4 05/14/99 99 completed ondansetron ODT (ZOFRAN-ODT) 8 mg disintegrating tablet Dissolve 1 tablet (8 mg total) on top of the tongue every 8 (eight) hours if needed for nausea or vomiting. 05/14/99 active insulin glargine (LANTUS) injection 5 Units 5 Units, subcutaneous, Nightly, First dose on 03/24/24 at 2100, Notify provider: -If patient is currently or will become NPO -If TPN was or will be interrupted or discontinued -For approval to hold long acting insulin 4 05/14/99 active insulin glargine (LANTUS) 100 unit/mL injection Inject 22 Units under the skin at bedtime. 05/14/99 active ondansetron ODT (ZOFRAN-ODT) 4 mg disintegrating tablet Take 1 tablet (4 mg total) by mouth every 8 (eight) hours if needed for nausea or vomiting. 05/14/99 99 aborted prochlorperazine (COMPAZINE) injection 10 mg 10 mg, intravenous, Once, On 03/24/24 at 0646, For 1 dose 4 05/14/99 99 completed HYDROmorphone (PF) (DILAUDID) injection 1 mg 1 mg, intravenous, Every 4 hours PRN, moderate pain, severe pain, Starting on 03/24/24 at 0811 05/14/99 99 aborted glucose blood test strip 1 each by Other route once daily as needed. 05/14/99 active insulin lispro injection 1-6 Units 1-6 Units, subcutaneous, 3 times daily before meals, First dose on 03/24/24 at 1130, Indication: Total Daily Dose (TDD) LESS than 40 units Correction Scale: Low Dose Administer with meal and/or mealtime dose of insulin to correct high blood glucose If mealtime insulin dose not given (e.g. patie 4 05/14/99 99 active sodium chloride 0.9 % intravenous solution 50 mL 50 mL, intravenous, Once in imaging, Starting on 03/24/24 at 0425, For 1 dose 4 05/14/99 99 completed dextrose (D50W) 50% injection 25 g 25 g, intravenous, Every 15 min PRN, low blood sugar, severe hypoglycemia *Patient is Unconscious, NPO, unable to swallow: BG LESS than 54 mg/dL*, Starting on Mon03/24/24 at 1022 4 05/14/99 99 active sodium chloride 0.9 % infusion 100 mL/hr, intravenous, Continuous, Starting on Mon03/24/24 at 0817 4 05/14/99 99 active sodium chloride 0.9 % flush 10 mL 10 mL, intravenous, Once, On Mon03/24/24 at 0426, For 1 dose 4 05/14/99 99 completed omeprazole (PriLOSEC) [address] capsule Take 1 capsule (20 mg total) by mouth 1 (one) time each day. 05/14/99 99 aborted dextrose 15 gram/60 mL oral solution 30 g 30 g, oral, Every 15 min PRN, low blood sugar, hypoglycemia *Patient conscious AND able to drink and swallow safely*, Starting on Mon03/24/24 at 1022 4 05/14/99 99 active HYDROmorphone (DILAUDID) injection 0.5 mg 0.5 mg, intravenous, Once, On Mon03/24/24 at 0415, For 1 dose 4 05/14/99 99 completed Dexcom G7 [employer] misc See administration instructions. 05/14/99 99 active enoxaparin (LOVENOX) injection 40 mg 40 mg, subcutaneous, Every 24 hours scheduled, First dose on Mon03/24/24 at 1029, Indication: VTE/PE Prophylaxis 4 05/14/99 99 active haloperidol lactate (HALDOL) injection 2 mg 2 mg, intravenous, Once, On Mon03/24/24 at 0251, For 1 dose, May be ordered via either intramuscular or intravenous route. If ordered IV, maximum of 5 mg/minute. 4 05/14/99 99 completed traZODone (DESYREL) tablet 25 mg 25 mg, oral, Daily, First dose on Mon03/24/24 at 1027 4 05/14/99 active metoclopramide (REGLAN) tablet 10 mg [Order 1 Start] Name: metoclopramide (REGLAN) tablet 10 mg Signed Summary: 10 mg, oral, Every 6 hours PRN, nausea, vomiting, Starting on 03/24/24 at 1018, 1st Line Option: -Give IV if patient is unable to take orally. -If inadequate response within 30 minutes, proceed to next-line agent or conta 4 05/14/99 active Glucagon HCl (rDNA) injection 1 mg 1 mg, intramuscular, Once as needed, low blood sugar, severe hypoglycemia, Starting on 03/24/24 at 1022, For 1 dose 4 05/14/99 active dextrose 15 gram/60 mL oral solution 15 g 15 g, oral, Every 15 min PRN, low blood sugar, hypoglycemia *Patient conscious AND able to drink and swallow safely*, Starting on 03/24/24 at 1022 4 05/14/99 99 active sodium chloride 0.9 % bolus 1,000 mL 1,000 mL, intravenous, at 1,000 mL/hr, Administer over 1 Hours, Once, On 03/24/24 at 0015, For 1 dose 4 05/14/99 99 completed lidocaine 4 % patch 1 patch 1 patch, Topical, Administer over 12 Hours, Daily, First dose on Mon03/25/24 at 0940, Apply to r flank 4 05/14/99 active dextrose (D50W) 50% injection 12.5 g 12.5 g, intravenous, Every 15 min PRN, low blood sugar, moderate hypoglycemia *Patient is Unconscious, NPO, unable to swallow: BG 54 - 69 mg/dl*, Starting on 03/24/24 at 1022 4 05/14/99 99 active pantoprazole (PROTONIX) EC tablet 40 mg 40 mg, oral, Every morning before breakfast, First dose on 03/24/24 at 1556, Do not crush, chew, or split. 4 05/14/99 99 active iopamidoL (ISOVUE-370) 370 mg iodine /mL (76 %) injection 85 mL 85 mL, intravenous, Once in imaging, Starting on 03/24/24 at 0426, For 1 dose 4 05/14/99 99 completed acetaminophen (TYLENOL) tablet 650 mg 650 mg, oral, Every 6 hours PRN, mild pain, Starting on Mon03/24/24 at 1548 05/14/99 active ondansetron (PF) (ZOFRAN) injection 4 mg 4 mg, intravenous, Once, On Mon03/24/24 at 0015, For 1 dose 4 05/14/99 99 completed FREESTYLE LANCETS MIS 1 Device. 05/14/99 active oxyCODONE (ROXICODONE) immediate release tablet 5 mg 5 mg, oral, Every 6 hours PRN, moderate pain, Starting on Mon03/25/24 at 0848 05/14/99 active potassium chloride (KLOR-CON M20) CR tablet 40 mEq 40 mEq, oral, Once, On Mon03/25/24 at 0846, For 1 dose, Tablet may be swallowed whole (do not crush/chew/suck on) OR broken in half and each half swallowed separately OR dissolved (whole tablet) in ~4 ounces of water (allow ~2 minutes to dissolve, stir well and administer immediately). 05/14/99 99 completed insulin lispro (HumaLOG KwikPen) 100 unit/mL injection pen Inject 2-4 Units under the skin 3 (three) times a day before meals. 05/14/99 active ondansetron ODT (ZOFRAN-ODT) disintegrating tablet 4 mg [Order 1 Start] Name: ondansetron ODT (ZOFRAN-ODT) disintegrating tablet 4 mg Signed Summary: 4 mg, oral, Every 8 hours PRN, vomiting, nausea, Starting on Mon03/24/24 at 1017, -Give IV if patient is unable to take orally. -If inadequate response within 30 minutes, proceed to next-line agent or cont 4 05/14/99 active lidocaine (LIDODERM) 5 % patch Apply 1 patch topically 1 (one) time each day. Apply to painful area 12 hours per day, remove for 12 hours. 4 05/14/99 99 active capsaicin (ZOSTRIX) 0.075 % cream Topical, 3 times daily, First dose on Mon03/25/24 at 0848, Apply to abdomen Gently rub into painful area until thoroughly absorbed. Wash hands with soap and water immediately after applying (unless hands are part of the treatment area). Avoid contact with eyes and mucous membranes. 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
--- NOTE | 2024-05-19 03:34 | ED_ITS ---
HPI - General Adult General Chief complaint: General Medical Stated complaint: chest and abd pain Time Seen by Provider: 05/19/24 03:23 Source: patient Mode of arrival: ambulatory Limitations: no limitations History of Present Illness ED Provider: Dr. Meeta Vazquez HPI narrative: Patient comes to the emergency room complaining of chronic right flank pain. Also, patient complaining of generalized malaise, fatigue, chest pain. Patient states that overall she is not feeling well. Patient denies vaginal bleeding at this time, denies black or bright red blood per rectum. Related Data Previous Rx's ?Medication ?Instructions ?Recorded pen needle, diabetic 32 gauge x #100 ea 08/10/23 (BD Rylee 2nd Gen Pen Needle) blood-glucose meter,continuous #1 ea 09/28/23 (Dexcom G7 Homeowner Association Manager) blood-glucose sensor (Dexcom G7 #1 ea 09/28/23 Sensor device) cyclobenzaprine 10 mg tablet 10 mg PO TID PRN muscle spasm #15 09/28/23 tabs losartan 25 mg tablet 25 mg PO DAILY 90 days #90 tabs 09/28/23 sertraline 50 mg tablet 50 mg PO DAILY 30 days #30 tabs 09/28/23 ondansetron HCl 4 mg tablet 4 mg PO Q6H PRN nausea and 10/07/23 vomiting #10 tabs insulin glargine 100 unit/mL (3 22 unit (0.22 mL) subcut BEDTIME 01/25/24 mL) subcutaneous pen 30 days #15 mL insulin lispro 100 unit/mL 4 - 5 unit (0.04 - 0.05 mL) subcut 01/25/24 subcutaneous pen TIDAC 30 days #15 mL trazodone 50 mg tablet 25 mg (1/2 x 50 mg) PO DAILY 30 01/25/24 days #15 tabs omeprazole 20 mg capsule,delayed 20 mg PO DAILY 15 days #15 caps 02/26/24 release ondansetron 8 mg disintegrating 8 mg PO Q12H 15 days #30 tabs 02/26/24 tablet Allergies Allergy/AdvReac Type Severity Reaction Status Date / Time morphine [MORPHINE] Allergy Unknown HIVES Verified 05/18/24 23:00 raspberry [Raspberry] Allergy Unknown HIVES Verified 05/18/24 23:00 nitrofurantoin AdvReac Unknown GI side Verified 05/18/24 23:00 [From Macrobid] effects Review of Systems 2 Review of Systems: Constitutional : No Weight loss, No Fever, No Chills, No Night Sweats, complaining of worsening fatigue, generalized malaise ENT/Mouth : No Hearing loss, No Ear Pain, No Nasal Congestion, No Sinus Pain, No Hoarseness, No sore throat, No Rhinorrhea, No Swallowing Difficulty Eyes: No Eye Pain, No Swelling, No Redness, No Foreign Body, No Discharge, No Vision Changes Cardiovascular : Complaining of intermittent Chest Pain, No SOB, No Dyspnea on Exertion, No Orthopnea, No Edema, No Palpitations Respiratory : No Cough, No Sputum, No Wheezing, No Smoke Exposure, No Dyspnea Gastrointestinal : No Nausea, No Vomiting, No Diarrhea, No Constipation, No abdominal Pain, No Hematochezia, No Melena Genitourinary : no irregular bleeding, No Dysuria, No Urinary Frequency, No Hematuria, No Urinary Incontinence, No Urgency, complaining of chronic right-sided Flank Pain, No Urinary Flow Changes, No Hesitancy Musculoskeletal : No joint pain, No Myalgias, No Joint Swelling Skin : No Skin Lesions, No rash Neuro : No Weakness, No Numbness, No Paresthesias, No Loss of Consciousness, No Dizziness, No Headache Psych : No Anxiety/Panic, No Depression, No SI/HI/AH/VH, No Social Issues, Heme/Lymph: No Bruising, No Bleeding,No Lymphadenopathy Endocrine : No Polyuria, No Polydipsia, No Temperature Intolerance PMFSH Past Medical History Medical History Mesenteric ischemia Chronic pain disorder Iron deficiency anemia GERD without esophagitis Gastroparesis Nausea Hordeolum externum of right eye Chronic kidney disease Anxiety Diabetes Hypertension Surgical History Hx of right BKA History of right cataract surgery Family History Family History Father Hyperlipidemia Mother Stomach cancer Sister Diabetes Mental health disorder Social History Social History Housing: Apartment Alcohol intake: never Patient Tobacco Use Status: Never used Tobacco Smoked in Last 30 Days: No e-Cigarette/Vaping Use: Never Used Second Hand Smoke Exposure: No Use of substances other than those prescribed or required for medical reasons: Yes Substance Use Type: Marijuana Advance Directives: Yes Advance Directives on File: Yes Advance Directives Date on File: 02/09/21 Patient : No service: No Current occupational status: employed and disabled 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 Oriented X3. No acute distress. Eyes: Pupils equal, round and reactive to light. ENT: Pharynx normal. Neck: Normal inspection. Neck supple. No lymph nodes noted. No crepitus CVS: Normal heart rate and rhythm. Pulses normal. Normal S1 and S2 Respiratory: No respiratory distress. Breath sounds normal. No Wheezing. No rales Abdomen: Soft and nontender. No rigidity. No distention. Skin: Skin warm and dry. Normal skin color. Normal skin turgor. Extremities: Patient has a BKA on the right leg Neuro: Oriented X 3. No motor deficit. No sensory deficit. Moving all extremities. No slurred speech. CN 2 through 12 grossly intact Psych: calm, cooperative, normal affect Medications Administered Discontinued Medications Generic Name Dose Route Start Last Admin Trade Name Freq PRN Reason Stop Dose Admin Acetaminophen 1,000 mg in 100 mls @ 400 mls/hr 05/19/24 03:31 05/19/24 04:29 Ofirmev IV 05/19/24 03:45 Infused ONCE ONE Infusion Ondansetron HCl 4 mg 05/19/24 03:59 05/19/24 04:14 Ondansetron Hcl 4 Mg/2 Ml Vial IVPUSH 05/19/24 04:00 4 mg ONCE ONE Administration Medical Decision Making Medical Decision Making MDM Narrative: Patient has had multiple CT scans for a chronic complaint of right flank pain.- CT scan of the abdomen was done less than 2 weeks ago. At this time, there are no changes regarding her pain. CT scan not indicated. However, patient's hemoglobin is low. Patient does have chronic anemia and heavy menstrual periods. Patient's hemoglobin today is 7.1, baseline is around 8. Given patient's symptoms of fatigue, generalized malaise, chest pain, we will go ahead and transfuse the patient. Patient states that she has had multiple transfusions in the past, I discussed with the patient the risks versus benefits of a blood transfusion and patient would like to proceed with the transfusion. Consent signed. Patient's creatinine at baseline 2.06. Troponin negative My interpretation of EKG: Normal sinus rhythm, heart rate 90, no ST segment depression or elevation, no T-wave inversion, QTC 430 After 1 unit of blood, patient may be discharged Differential Diagnosis Differential Diagnoses: The differential diagnosis associated with the presentation includes (Iron deficiency, chronic anemia, viral syndrome) Admission/Observation Consideration of admission/observation: Escalation of care including admission/observation considered (Given patient's past medical history and symptoms, admission/observation was considered.) Lab Data MDM Lab Attestation statement: I reviewed the patient's lab results. 05/18/24 23:16 05/18/24 23:16 Labs: Lab Results 05/18/24 05/19/24 Range/Units 23:16 03:54 WBC 6.1 (4.8-10.8) X10*3/uL RBC 3.18 L (4.20-5.50) X10*6/uL Hgb 7.1 L (12.0-16.0) g/dl Hct 24.2 L (37.0-47.0) % MCV 76.1 L (80.0-98.0) fL MCH 22.3 L (27.0-33.0) pg MCHC 29.3 L (31.0-35.0) g/dl RDW 18.0 H (11.0-16.0) % Plt Count 322 (160-400) X10*3/uL MPV 9.1 L (9.4-12.3) fL Immature Gran % (Auto) 0.3 (0.0-0.4) % Neut % (Auto) 48.1 (45-73) % Lymph % (Auto) 38.8 (20-40) % [place] % (Auto) 7.9 (2-11) % Eos % (Auto) 3.9 (0-4) % Baso % (Auto) 1.0 (0-2) % Lymph # (Auto) 2.4 (1.2-4.9) X10*3/uL [place] # (Auto) 0.5 (0.1-1.2) X10*3/uL Eos # (Auto) 0.2 (0.0-0.4) X10*3/uL Baso # (Auto) 0.1 (0.0-0.2) X10*3/uL Abs Immat Gran (auto) 0.02 (0.00-0.03) X10*3/uL Absolute Neuts (auto) 2.9 (2.0-8.3) x10*3/uL Absolute Nucleated RBC 0.000 (0.0-0.012) X10*3/uL Nucleated RBC % (auto) 0.0 (0.0-0.2) /100WBC Sodium 137 (135-145) mmol/L Potassium 4.5 (3.3-5.1) mmol/L Chloride 111 H (96-108) mmol/L Carbon Dioxide 19 L (22-29) mmol/L Anion Gap 12 (12-20) BUN 15 (9-16) mg/dL Creatinine 2.06 H (0.5-1.4) mg/dL Estim Creat Clear Calc 39.6 Estimated GFR 27 Random Glucose 159 H (60-115) mg/dL Calcium 8.6 D (8.4-10.2) mg/dL Troponin I High Sens < 2.7 (<3.5-17.0) ng/L Urine Color Yellow Urine Appearance Clear Urine pH 6.0 (5.0-9.0) Ur Specific [place] 1.015 (1.005-1.025) Urine Protein 30 (1+) H (Neg-Trace) mg/dL Urine Glucose (UA) Negative (Negative) mg/dL Urine Ketones Trace (Negative) mg/dL Urine Blood Negative (Negative) Urine Nitrite Negative (Negative) Ur Leukocyte Esterase Negative (Negative) Urine RBC 0-2 (0-2) /HPF Urine WBC 0-5 (0-5) /HPF Ur Squamous Epith Cells 0-2 (0-2) /HPF Urine Bacteria None Seen (None Seen) Hyaline Casts 0-2 (0-2) /LPF Blood Type A Positive Antibody Screen NEGATIVE Crossmatch See Detail Independent Interpretation I performed an independent interpretation of an: EKG and Plain X-Ray Radiology Impression Discussion of test interpretation with radiology: I have reviewed the radiologist's reading. Radiologist Impression: The lungs appear clear. There is no consolidation, effusion, or nodule identified. Cardiomediastinal silhouette is within normal limits. IMPRESSION: No acute cardiopulmonary abnormality. Critical Care Time Critical Care Time Critical Care Time: Yes Total Critical Care Time: 60 Attestation: I have personally provided critical care time. Time includes review of lab data, radiology results, discussion with consultants, and monitoring for potential decompensation. Intervention performed as documented. Discharge Plan Discharge Clinical Impression: Symptomatic anemia, Chronic flank pain Patient Disposition: Home, Self-Care Instructions: Anemia (ED) Additional Instructions: Please follow-up with your primary care physician tomorrow. 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[employer] Manager Misc See Rx Instructions .Route Qty: 1 0RF Rx Instructions: As directed (DME) Dexcom G7 Sensor Device See Rx Instructions .Route Qty: 1 6RF Rx Instructions: As directed losartan 25 mg tablet 25 mg PO DAILY 90 Days Qty: 90 1RF insulin glargine 100 unit/mL (3 mL) insulin pen 22 unit subcut BEDTIME 30 Days Qty: 15 0RF insulin lispro 100 unit/mL insulin pen 4 - 5 unit subcut TIDAC 30 Days Qty: 15 0RF trazodone 50 mg tablet 25 mg PO DAILY 30 Days Qty: 15 3RF omeprazole 20 mg capsule,delayed release(DR/EC) 20 mg PO DAILY 15 Days Qty: 15 0RF ondansetron 8 mg tablet,disintegrating 8 mg PO Q12H 15 Days Qty: 30 0RF Print Language: Chinese
[2024-05-19 04:03] LABS: Appearance Urine Clear; Color Urine Yellow; Glucose Urine UA Negative (Negative); Leukocyte Esterase Urine Negative (Negative); Nitrite Urine Negative (Negative); Specific Gravity - Urine 1.015 (1.005-1.025); UMIC TRIGGER UACC YES; Urine Blood Negative (Negative); Urine Ketones Trace mg/dL (Negative); Urine Protein 30 (1+) mg/dL (Neg-Trace)
[2024-05-19 04:08] LABS: Bacteria Urine None Seen (None Seen); Hyaline Casts Urine 0-2 /LPF (0-2); RBC Urine 0-2 /HPF (0-2); Squamous Epithelial Cell Urine 0-2 /HPF (0-2); WBC Urine 0-5 /HPF (0-5)
[2024-05-19] MEDS: ondansetron HCL 4 MG/2 ML VIAL IVPUSH (04:14)
[2024-05-19] MEDS: Acetaminophen 1,000 MG/100 ML PIGGYBACK 400 MG IV (04:14)
[2024-05-19 05:23] VITALS: BP 131/73; PULSE 98; RESP 18; TEMP 36.7
[2024-05-19 05:42] VITALS: BP 121/64; PULSE 85; RESP 15; TEMP 36.7
[2024-05-19 08:25] VITALS: BP 125/79; PULSE 84; RESP 18; TEMP 37.4
[2024-05-19 08:49] VITALS: RESP 14
[2024-05-19] MEDS: HYDROmorphone HCl 0.5 MG/0.5 ML SYRINGE 0.25 MG IVPUSH (08:49)
[2024-05-19 08:58] VITALS: BP 120/60; PULSE 80; RESP 14; TEMP 37.2; O2SAT 99
== END 2024-05-19 08:59 | disposition home or self-care (01) ==
PROVIDERS: Emergency Provider Emergency Medicine; PCP Physician Assistant
DX: D64.9 Anemia, unspecified (principal); R07.89 Other chest pain; R10.2 Pelvic and perineal pain; R53.81 Other malaise; R94.31 Abnormal electrocardiogram [ECG] [EKG]; Z79.899 Other long term (current) drug therapy
CPT/HCPCS: 36415; 71045; 80048; 81001; 84484; 85025; 86850; 86900; 86901; 86923; 93005; 96365; 96375; 99284; 99285; J0131; J1171; J2405; P9016

== ENCOUNTER → 2024-05-18 23:02 | Outpatient (BNV) | payer OTHER, SELFPAY | PROVIDERS: Emergency Provider Emergency Medicine; PCP Physician Assistant; Visit Provider Internal Medicine Cardiovascular Disease | DX: R94.31 Abnormal electrocardiogram [ECG] [EKG] (principal) | CPT/HCPCS: 93010 ==

== ENCOUNTER → 2024-05-18 23:20 | Outpatient (BNV) | payer OTHER, SELFPAY | PROVIDERS: PCP Physician Assistant; Visit Provider Radiology Diagnostic Radiology | DX: R07.9 Chest pain, unspecified (principal) | CPT/HCPCS: 71045 ==

== ENCOUNTER 2024-05-23 07:42 | Emergency (ER) | payer OTHER, SELFPAY ==
[2024-05-23] VITALS (7 sets, daily range): BP systolic 124–168; BP diastolic 69–81; PULSE 89–93; RESP 16–24; TEMP 36.8–37; O2SAT 98–100; BMI 28.0
[2024-05-23 08:26] LABS: MANUAL DIFF FLAG NO
[2024-05-23 08:27] LABS: Basophils Absolute Auto 0.1 X10*3/uL (0.0-0.2); Basophils Percent Auto 1.2 % (0-2); Eosinophils Absolute Auto 0.3 X10*3/uL (0.0-0.4); Eosinophils Percent Auto 4.6 % (0-4); Hematocrit 29.1 % (37.0-47.0); Hemoglobin 8.9 g/dl (12.0-16.0); Imm Gran Abs Auto 0.02 X10*3/uL (0.00-0.03); Imm Gran Pct Auto 0.3 % (0.0-0.4); Lymphocytes Absolute Auto 1.3 X10*3/uL (1.2-4.9); Lymphocytes Percent Auto 19.4 % (20-40); Mean Corpuscular HGB Conc 30.6 g/dl (31.0-35.0); Mean Corpuscular Hemoglobin 23.9 pg (27.0-33.0); Mean Corpuscular Volume 78.2 fL (80.0-98.0); Mean Platelet Volume 9.2 fL (9.4-12.3); Monocytes Absolute Auto 0.4 X10*3/uL (0.1-1.2); Monocytes Percent Auto 5.7 % (2-11); Neutrophils Absolute Auto 4.7 x10*3/uL (2.0-8.3); Neutrophils Percent Auto 68.8 % (45-73); Platelet Count 259 X10*3/uL (160-400); Red Blood Count 3.72 X10*6/uL (4.20-5.50); Red Cell Distribution Width 18.8 % (11.0-16.0); White Blood Count 6.9 X10*3/uL (4.8-10.8)
[2024-05-23 08:40] LABS: Alanine Aminotransferase 10 U/L (0-31); Alkaline Phosphatase 124 U/L (39-117); Anion Gap 11 (12-20); Aspartate Amino Transferase 20 U/L (5-31); Bilirubin Total 0.2 mg/dL (0.0-1.0); Blood Urea Nitrogen 14 mg/dL (9-16); Calcium 8.4 mg/dL (8.4-10.2); Carbon Dioxide 20 mmol/L (22-29); Chloride 114 mmol/L (96-108); Creatinine Clr Calc Pharmacy 64.6; Estimated Glomerular Filt Rate 45; Glucose Random 135 mg/dL (60-115); Sodium 140 mmol/L (135-145); Total Protein 7.5 g/dL (6.5-8.0)
--- NOTE | 2024-05-23 14:43 | PC.NURSE ---
continues to have pain. ambulates with steady gait. no SOB.
--- NOTE | 2024-05-23 14:48 | ED.GENADULT ---
HPI - General Adult General Chief complaint: General Medical Stated complaint: side pain Time Seen by Provider: 05/23/24 15:21 History of Present Illness ED Provider: Félix OSULLIVAN narrative: The patient is a 39-year-old woman with a history of sickle cell disease a variety of complaints. She seems to frequently complain of right flank pain. She has had multiple CT scans because of recurrent complaints of right flank pain. I believe she had a CT scan at another hospital within the last 3 weeks for this complaint. The patient was seen in the emergency room here 5 days ago with a complaint of flank pain. At that point she had a hemoglobin of 7.1 and was given a blood transfusion and discharged. She returns today saying that she has been having right flank pain ever since that visit. Related Data Previous Rx's ?Medication ?Instructions ?Recorded pen needle, diabetic 32 gauge x #100 ea 08/10/23 (BD Rylee 2nd Gen Pen Needle) blood-glucose meter,continuous #1 ea 09/28/23 (Dexcom G7 Marine Pipefitter) blood-glucose sensor (Dexcom G7 #1 ea 09/28/23 Sensor device) cyclobenzaprine 10 mg tablet 10 mg PO TID PRN muscle spasm #15 09/28/23 tabs losartan 25 mg tablet 25 mg PO DAILY 90 days #90 tabs 09/28/23 sertraline 50 mg tablet 50 mg PO DAILY 30 days #30 tabs 09/28/23 ondansetron HCl 4 mg tablet 4 mg PO Q6H PRN nausea and 10/07/23 vomiting #10 tabs insulin glargine 100 unit/mL (3 22 unit (0.22 mL) subcut BEDTIME 01/25/24 mL) subcutaneous pen 30 days #15 mL insulin lispro 100 unit/mL 4 - 5 unit (0.04 - 0.05 mL) subcut 01/25/24 subcutaneous pen TIDAC 30 days #15 mL trazodone 50 mg tablet 25 mg (1/2 x 50 mg) PO DAILY 30 01/25/24 days #15 tabs omeprazole 20 mg capsule,delayed 20 mg PO DAILY 15 days #15 caps 02/26/24 release ondansetron 8 mg disintegrating 8 mg PO Q12H 15 days #30 tabs 02/26/24 tablet ondansetron 4 mg disintegrating 4 mg PO Q6H PRN nausea and 05/23/24 tablet vomiting #10 tabs oxycodone 5 mg tablet 5 mg PO Q6H PRN pain #10 tabs 05/23/24 Allergies Allergy/AdvReac Type Severity Reaction Status Date / Time morphine [MORPHINE] Allergy Unknown HIVES Verified 05/23/24 07:55 raspberry [Raspberry] Allergy Unknown HIVES Verified 05/23/24 07:55 nitrofurantoin AdvReac Unknown GI side Verified 05/23/24 07:55 [From Macrobid] effects Review of Systems Review of Systems: Yes all other systems are reviewed and are negative [facility] Past Medical History Medical History Mesenteric ischemia Chronic pain disorder Iron deficiency anemia GERD without esophagitis Gastroparesis Nausea Hordeolum externum of right eye Chronic kidney disease Anxiety Diabetes Hypertension Surgical History Hx of right BKA History of right cataract surgery Family History Family History Father Hyperlipidemia Mother Stomach cancer Sister Diabetes Mental health disorder Social History Social History Housing: Apartment Alcohol intake: never Patient Tobacco Use Status: Never used Tobacco Smoked in Last 30 Days: No e-Cigarette/Vaping Use: Never Used Second Hand Smoke Exposure: No Use of substances other than those prescribed or required for medical reasons: Yes Substance Use Type: Marijuana Advance Directives: Yes Advance Directives on File: Yes Advance Directives Date on File: 02/09/21 Patient : No service: No Current occupational status: employed and disabled 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[employer] Cognitive needs: No Hearing needs: No Vision needs: Yes (annual eye exam) Physical Exam ED Vital Signs: Vital Signs - 24 hr 05/23/24 07:53 05/23/24 14:42 05/23/24 16:12 Temperature 98.6 F 98.4 F Pulse Rate 93 90 Respiratory Rate 18 18 22 H Blood Pressure 132/79 124/69 Pulse Oximetry 100 98 Oxygen Delivery Method Room Air Room Air 05/23/24 17:13 05/23/24 18:27 05/23/24 18:50 Temperature Pulse Rate 89 Respiratory Rate 24 H 16 16 Blood Pressure 168/81 H Pulse Oximetry 99 Oxygen Delivery Method Room Air 05/23/24 18:53 Temperature 98.2 F Pulse Rate 89 Respiratory Rate 16 Blood Pressure 168/81 H Pulse Oximetry 99 Oxygen Delivery Method Room Air BMI result Body Mass Index 28.0 Const Other: The patient is a chronically ill appearing 39-year-old female. She has a right hgmop-hjn-dhmw amputation. She was lying on the stretcher and had body shaking in a somewhat rhythmic manner similar to previous with previous emergency room visits. HENMT Other: Face is symmetrical. Mucous membranes moist. Eyes Other: Pupils are round equal, conjunctivae are clear, extraocular movements intact Neck Other: Moving her neck ease Resp Effort & Inspection: normal respiratory effort Auscultation: clear to auscultation bilaterally Cardio Rate: regular rate Rhythm: regular rhythm Heart sounds: S1 normal heart sound present and S2 normal heart sound present GI Other: The abdomen seems soft and not obviously tender. Skin Other: Skin is dry and unremarkable Neuro Other: The patient is awake and alert. Her mental status seems clear. Her extremities were moving in his somewhat rhythmic manner. This seemed to be volitional and she seemed to have good tone in all of her extremities and could use them appropriately. Her cranial nerves are intact. Extrem Other: The patient has a right ohbmx-ihp-ipla amputation with a prosthesis Course Course Course Narrative: This is a rapid medical exam performed by Clinton Aragon NP: Additional HPI, ROS, PE not included below will be deferred to primary provider. Patient re-evaluated at this time, was triaged prior to my arrival. History of mesenteric ischemia, chronic pain disorder, RODERICK, GERD, gastroparesis, DM, HTN, CKD. Complains of lower abdominal pain, going only small amounts when urinating. States pain is radiating all across abdomen. Plan: labs, UA Medications Administered Discontinued Medications Generic Name Dose Route Start Last Admin Trade Name Freq PRN Reason Stop Dose Admin Diphenhydramine HCl 50 mg 05/23/24 16:05 05/23/24 16:12 Diphenhydramine Hcl 50 Mg/Ml Vial IM 05/23/24 16:06 50 mg ONCE ONE Administration Haloperidol Lactate 5 mg 05/23/24 17:09 05/23/24 17:14 Haloperidol Lactate 5 Mg/Ml Vial IM 05/23/24 17:10 5 mg STAT STA Administration Hydromorphone HCl 1 mg 05/23/24 16:05 05/23/24 16:12 Hydromorphone Hcl 1 Mg/Ml Syringe IM 05/23/24 16:06 1 mg ONCE ONE Administration Protocol Hydromorphone HCl 2 mg 05/23/24 17:03 05/23/24 17:13 Hydromorphone Hcl 2 Mg/Ml Vial IM 05/23/24 17:04 2 mg ONCE ONE Administration Protocol Medical Decision Making Medical Decision Making [facility] Narrative: The patient is a 39-year-old female with a history of sickle cell disease and a right dcpvc-qoq-eoao amputation. She also has a history of frequent ER visits with complaints of flank pain. She has had multiple CT scans in her life which have not elucidated any explanation for this chronic pain. She returns today with an exacerbation of the chronic pain. She received a blood transfusion when she was here 4 days ago. Her labs today show improvement in her renal function compared to May 18. My overall impression is a this is likely an exacerbation of her chronic pain rather than an sickle crisis or an acute intra-abdominal process. The patient was initially given 1 mg of IM hydromorphone and 50 mg of IM diphenhydramine. This seemed to give her minimal relief and she had ongoing retching. She was then given 2 mg of IM hydromorphone and 5 mg of IM haloperidol. After the 2nd round of medication she seemed to have a period of rest and looked better. I spoke to her. She seemed to feel that she could manage her symptoms at home with the appropriate medications. I have sent a prescription for oxycodone and for ondansetron. Lab Data 05/23/24 08:21 05/23/24 08:21 Labs: Lab Results 05/23/24 Range/Units 08:21 WBC 6.9 (4.8-10.8) X10*3/uL RBC 3.72 L (4.20-5.50) X10*6/uL Hgb 8.9 L D (12.0-16.0) g/dl Hct 29.1 L D (37.0-47.0) % MCV 78.2 L (80.0-98.0) fL MCH 23.9 L (27.0-33.0) pg MCHC 30.6 L (31.0-35.0) g/dl RDW 18.8 H (11.0-16.0) % Plt Count 259 (160-400) X10*3/uL MPV 9.2 L (9.4-12.3) fL Immature Gran % (Auto) 0.3 (0.0-0.4) % Neut % (Auto) 68.8 (45-73) % Lymph % (Auto) 19.4 L (20-40) % Mcclain % (Auto) 5.7 (2-11) % Eos % (Auto) 4.6 H (0-4) % Baso % (Auto) 1.2 (0-2) % Lymph # (Auto) 1.3 (1.2-4.9) X10*3/uL Mcclain # (Auto) 0.4 (0.1-1.2) X10*3/uL Eos # (Auto) 0.3 (0.0-0.4) X10*3/uL Baso # (Auto) 0.1 (0.0-0.2) X10*3/uL Abs Immat Gran (auto) 0.02 (0.00-0.03) X10*3/uL Absolute Neuts (auto) 4.7 (2.0-8.3) x10*3/uL Absolute Nucleated RBC 0.000 (0.0-0.012) X10*3/uL Nucleated RBC % (auto) 0.0 (0.0-0.2) /100WBC Sodium 140 (135-145) mmol/L Potassium 5.0 (3.3-5.1) mmol/L Chloride 114 H (96-108) mmol/L Carbon Dioxide 20 L (22-29) mmol/L Anion Gap 11 L (12-20) BUN 14 (9-16) mg/dL Creatinine 1.31 (0.5-1.4) mg/dL Estim Creat Clear Calc 64.6 Estimated GFR 45 Random Glucose 135 H (60-115) mg/dL Calcium 8.4 (8.4-10.2) mg/dL Total Bilirubin 0.2 (0.0-1.0) mg/dL AST 20 (5-31) U/L ALT 10 (0-31) U/L Alkaline Phosphatase 124 H (39-117) U/L Total Protein 7.5 (6.5-8.0) g/dL Albumin 4.0 (3.5-5.0) g/dL Discharge Plan Discharge Clinical Impression: Right flank pain, Vomiting, Sickle cell disease Patient Disposition: Home, Self-Care Additional Instructions: Your blood testing today looked good. Sent for the pain medication oxycodone, and for the nausea medication ondansetron (also known as Zofran). Use these medications as prescribed. Please continue your other medications. Follow up with your regular doctor soon. Return to the emergency room if worse. Prescriptions: New oxycodone 5 mg tablet 5 mg PO Q6H PRN (Reason: pain) Qty: 10 0RF Rx Instructions: Partial Fill upon patient request. ondansetron 4 mg tablet,disintegrating 4 mg PO Q6H PRN (Reason: nausea and vomiting) Qty: 10 0RF No Action (DME) pen needle, diabetic [BD Rylee 2nd Gen Pen Needle] 32 gauge x 5/32 needle See Rx Instructions .Route Qty: 100 1RF Rx Instructions: As directed ondansetron HCl 4 mg tablet 4 mg PO Q6H PRN (Reason: nausea and vomiting) Qty: 10 0RF cyclobenzaprine 10 mg tablet 10 mg PO TID PRN (Reason: muscle spasm) Qty: 15 0RF sertraline 50 mg tablet 50 mg PO DAILY 30 Days Qty: 30 1RF (DME) Dexcom G7 Marine Pipefitter Misc See Rx Instructions .Route Qty: 1 0RF Rx Instructions: As directed (DME) Dexcom G7 Sensor Device See Rx Instructions .Route Qty: 1 6RF Rx Instructions: As directed losartan 25 mg tablet 25 mg PO DAILY 90 Days Qty: 90 1RF insulin glargine 100 unit/mL (3 mL) insulin pen 22 unit subcut BEDTIME 30 Days Qty: 15 0RF insulin lispro 100 unit/mL insulin pen 4 - 5 unit subcut TIDAC 30 Days Qty: 15 0RF trazodone 50 mg tablet 25 mg PO DAILY 30 Days Qty: 15 3RF omeprazole 20 mg capsule,delayed release(DR/EC) 20 mg PO DAILY 15 Days Qty: 15 0RF ondansetron 8 mg tablet,disintegrating 8 mg PO Q12H 15 Days Qty: 30 0RF Referrals: Dariusz Garcia PA-C [Primary Care Provider] - (Chronic right flank pain) Interventions: ED Discharge Assessment Last Done: 05/23/24 18:53 Print Language: Namibian
[2024-05-23] MEDS: HYDROmorphone HCl 1 MG/ML SYRINGE IM (16:12)
[2024-05-23] MEDS: diphenhydrAMINE HCL 50 MG/ML VIAL IM (16:12)
[2024-05-23] MEDS: HYDROmorphone HCl 2 MG/ML VIAL IM (17:13)
[2024-05-23] MEDS: Haloperidol Lactate 5 MG/ML VIAL IM (17:14)
--- NOTE | 2024-05-23 17:20 | PC.NURSE ---
Pt continues to thrash around in bed, stops intermittently. Vomited X2. Medicated per MAR
== END 2024-05-23 19:27 | disposition home or self-care (01) ==
PROVIDERS: Emergency Provider Emergency Medicine; PCP Physician Assistant
DX: R10.9 Unspecified abdominal pain (principal); R11.2 Nausea with vomiting, unspecified; E87.1 Hypo-osmolality and hyponatremia; E10.22 Type 1 diabetes mellitus with diabetic chronic kidney disease; I12.9 Hypertensive chronic kidney disease with stage 1 through stage 4 chronic kidney disease, or unspecified chronic kidney disease; N18.30 Chronic kidney disease, stage 3 unspecified; Z79.4 Long term (current) use of insulin; Z79.899 Other long term (current) drug therapy
CPT/HCPCS: 36415; 80053; 85025; 96372; 99284; 99285; J1171; J1200; J1630

== ENCOUNTER 2024-05-26 12:29 | Emergency (ER) | payer OTHER, SELFPAY ==
--- NOTE | 2024-05-26 | ECG_ITS ---
Test Reason : CP Blood Pressure : */* mmHG Vent. Rate : 83 BPM Atrial Rate : 83 BPM P-R Int : 116 ms QRS Dur : 92 ms QT Int : 376 ms P-R-T Axes : 41 -32 18 degrees QTcB Int : 441 ms Normal sinus rhythm Left axis deviation Possible Anterior infarct , age undetermined Abnormal ECG When compared with ECG of 18-May-2024 23:08, No significant change was found Referred By: Generic ED Physician Electronically Signed By: Shaq Childers
--- NOTE | ~2024-05-26 | XR_ITS ---
CLINICAL HISTORY: chest pain Chest Radiographs, 2 views Comparison: 05/18/24 Findings: No cardiomegaly. Normal mediastinal contours. No pneumothorax. No opacity. No pleural effusion. Normal upper abdomen. No acute fracture. Nerve stimulator in the left upper quadrant. Impression: No acute findings. This document has been electronically signed by: Daylin Barger MD on 05/26/2024 13:57:05
--- OUTSIDE RECORDS SUMMARY | 2024-05-26 12:31 | XMS_ITS ---
[facility] Organization [facility] Care Team Providers Care Senior Biostatistician/Group Leader Name Role Phone CANDICE HENRY Unavailable Unavailable PC, IP USE ONLY - [facility] Unavailable Unavailable JAIMIE BILLINGS Unavailable Unavailable Unavailable Unavailable Unavailable ORAL DELEON Unavailable Unavailable PETER ALVARADO Unavailable Unavailable OSVALDO PARKS Unavailable Unavailable ELALIZAGGAR, MOHBEL Unavailable Unavailable ELNAGGAR, MOHAMED Unavailable Unavailable OPAL HERNANDEZ Unavailable Unavailable Dariusz Vilchis Primary Care Provider Allergies Allergy Classification Reported Allergen(s) Allergy Type Date of Onset Reaction(s) Care Provider Facility Opioid Agonists (7 sources) morphine Allergy to drug 12-14-19 20 Rash/Dermatiti s Papa Suazo Jr., MD Work Phone: [facility] Work Phone: Encounters Encounter Date Encounter Type Encounter Diagnosis Care Provider Facility Start: 02-15-2024 05:08-0400 Evaluation and management of [facility] Start: 02-14-2024 12:00-0400 Emergency department patient visit Flank pain ORAL ALVARADO [facility] Start: 02-14-2024 12:00-0400 End: 02-16-2024 04:23-0400 Evaluation and management of inpatient Acute kidney failure, unspecified CANDICE Deleon MD Work Phone: Peter Alvarado MD Work Phone: Jaimie Billings MD Work Phone: Osvaldo Parks MD Work Phone: Candice Henry MD Work Phone: [facility] Comment on above: JONNY (acute kidney injury) (HCC) (Primary Dx); Pancreatitis; Gastroparesis Start: 01-13-2024 02:46-0400 End: 01-13-2024 10:48-0400 Emergency department patient visit Flank pain OPAL Hernandez MD Work Phone: [facility] Comment on above: Flank pain (Primary Dx) Emergency department patient visit OPAL Sil [facility] End: 02-16-2024 04:23-0400 Evaluation and management of inpatient [facility] Evaluation and management of inpatient OSVALDOCisco PARKS [facility] Medications Current Medications Medication Drug Class(es) Dates Sig (Normalized) Sig (Original) acetaminophen 325 MG Oral Tablet (3 sources) Start: 02-15-2024 take 1 tablet by mouth every six hours as needed acetaminophen (TYLENOL) tablet 975 mg Start: 12-20-2019 End: 02-15-2024 Take 3 tablets (975 mg total ) by mouth 4 times daily (every 6 hours) as needed for moderate pain. calcium chloride 0.0014 MEQ/ML / potassium chloride 0.004 MEQ/ML / sodium chloride 0.103 MEQ/ML / sodium lactate 0.028 MEQ/ML Injectable Solution (1 source) alpha-Hydroxy Acid Start: 02-15-2024 lactated ringers (LR) infusion dicyclomine hydrochloride 10 MG Oral Capsule (3 sources) Anticholinergic Start: 12-20-2019 take 10 mg by mouth three times daily 10 mg, Oral, 3 times daily, First dose on Ally 02/15/24 at 0800 folic acid 1 MG Oral Tablet (3 sources) Start: 12-21-2019 take 1 mg by mouth once daily 1 mg, Oral, Daily, First dose on Ally 02/15/24 at 0900 gabapentin 100 MG Oral Capsule (3 sources) Anti-epileptic Agent Start: 12-21-2019 take 100 mg by mouth once daily 100 mg, Oral, Daily, First dose on Ally 02/15/24 at 0900 glucose (1 source) Start: 02-15-2024 glucose (GLUTOSE 15) 40 % oral gel 37.5 g 1 ML hydromorphone hydrochloride 1 MG/ML Cartridge (2 sources) Opioid Agonist Start: 02-15-2024 End: 02-22-2024 take 0.2 mg intravenously every four hours as needed HYDROmorphone (DILAUDID) injection 0.2 mg Start: 02-15-2024 End: 02-15-2024 take 0.5 mg intravenously every four hours as needed HYDROmorphone (DILAUDID) injection 0.5 mg hydrOXYzine hydrochloride 10 MG Oral Tablet (3 sources) Antihistamine Start: 02-15-2024 take 1 tablet by mouth every six hours as needed 10 mg, Oral, Every 6 hours PRN, anxiety, Starting on Mon02/15/24 at 0311 Start: 11-14-2019 take 1-2 mg by mouth every twenty-four hours as needed Take 1-2 mg by mouth daily as needed for anxiety. insulin glargine 100 UNT/ML Injectable Solution (4 sources) Insulin Analog Start: 02-15-2024 inject 15 [IU] by subcutaneous injection once daily 15 Units, Subcutaneous, Nightly, First dose on Ally 02/15/24 at 2100 Start: 12-31-2019 inject 0.03 mL by jarrell bcutaneous injection once daily Inject 0.03 mL (3 Units total) under the skin nightly. insulin lispro 100 UNT/ML Injectable Solution (5 sources) Insulin Analog Start: 02-15-2024 insulin lispro (HumaLOG/ADMELOG) 100 units/mL injection 1-6 Units Start: 11-22-2019 End: 02-15-2024 Administer 0-6 units under t he skin three times a day asper sliding scale Inject 3-4 Units under the skin 3 (three) times a day before meals. Per sliding scale. multivitamin with minerals Tab tablet (2 sources) Start: 12-21-2019 Take 1 tablet by mouth daily. Do not start before December 21, 2019. 2 ML ondansetron 2 MG/ML Injection (2 sources) Serotonin-3 Receptor Antagonist Start: 02-15-2024 take 4 mg intravenously every six hours as needed ondansetron (ZOFRAN) injection 4 mg Start: 01-13-2024 End: 01-13-2024 ondansetron (ZOFRAN) injecti on 4 mg pantoprazole 40 MG Delayed Release Oral Tablet (3 sources) Proton Pump Inhibitor Start: 12-20-2019 take 40 mg by mouth twice daily 40 mg, Oral, 2 times daily, First dose on Ally 02/15/24 at 0900, *DO NOT CHEW OR CRUSH* thiamine 100 MG Oral Tablet (3 sources) Start: 02-15-2024 take 200 mg by mouth once daily 200 mg, Oral, Daily, First dose on Ally 02/15/24 at 0900 Start: 12-20-2019 take 2 tablets by mouth once d aily Take 2 tablets (200 mg total) by mouth daily. traZODone hydrochloride 50 MG Oral Tablet (1 source) Serotonin Reuptake Inhibitor Start: 01-25-2024 take 0.5-1 tablets by mouth once daily as needed Take 0.5-1 tablets (25-50 mg total) by mouth nightly as needed. Completed/Discontinued Medications Medication Drug Class(es) Dates Sig (Normalized) Sig (Original) acetaminophen 300 MG / codeine phosphate 30 MG Oral Tablet (2 sources) Opioid Agonist Start: 12-23-2019 End: 02-15-2024 take 1 tablet by mouth every eight hours Take 1 tablet by mouth 3 times daily (every 8 hours). For 5 days 1 ML droperidol 2.5 MG/ML Injection (1 source) Dopamine-2 Receptor Antagonist Start: 02-15-2024 End: 02-15-2024 droPERidol (INAPSINE) injection 1.25 mg 1 ML ketorolac tromethamine 30 MG/ML Cartridge (1 source) Nonsteroidal Anti-inflammatory Drug, Cyclooxygenase Inhibitor Start: 01-13-2024 End: 01-13-2024 ketorolac (TORADOL) injection 15 mg calcium chloride 0.0014 MEQ/ML / potassium chloride 0.004 MEQ/ML / sodium chloride 0.103 MEQ/ML / sodium lactate 0.028 MEQ/ML Injectable Solution (2 sources) Start: 02-15-2024 End: 02-15-2024 lactated ringers (LR) bolus Start: 01-13-2024 End: 01-13-2024 lactated ringers (LR) bolus oxyCODONE hydrochloride 5 MG Oral Tablet (1 source) Opioid Agonist Start: 01-13-2024 End: 01-13-2024 oxyCODONE (ROXICODONE) immediate release tablet 5 mg Payers Date Payer Normalized Payer [id number] 12-13-2019 [facility] Unavailable / Unknown [id number] 12-13-2019 [facility] Unavailable / Unknown [id number] Plan of Treatment Date Care Activity Detail Author Start: 02-14-2025 Creatinine with GFR Creatinine with GFR [facility] Start: 08-15-2024 Hemoglobin A1c measurement Hemoglobin A1C [facility] Start: 01-14-2024 COVID-19 Vaccine ( season) COVID-19 Vaccine ( season) [facility] Start: 12-14-2023 Administration of influenza vaccine Influenza Vaccine [facility] Start: 01-13-2023 COVID-19 Vaccine ( season) COVID-19 Vaccine ( season) [facility] Start: 12-30-2020 Creatinine with GFR Creatinine with GFR [facility] Start: 12-13-2020 Lipid 1996 panel - S kasandra or Plasma Lipid Panel [facility] Start: 06-16-2020 Hemoglobin A1c measurement Hemoglobin A1C [facility] Start: 2005 Microscopic observat ion [Identifier] in Cervix by Cyto stain Pap Smear (Ages 21-65) [facility] Start: 2003 DTaP/Tdap/Td Vaccine s (1 - Tdap) DTaP/Tdap/Td Vaccines (1 - Tdap) [facility] Start: 2003 Hepatitis B Vaccines (1 of 3 - 19+ 3-dose series) Hepatitis B Vaccines (1 of 3 - 19+ 3-dose series) [facility] Start: 2002 Chronic Controlled Substance Toxicology Screening Chronic Controlled Substance Toxicology Screening [facility] Start: 2002 Chronic Controlled Substance User PDMP Review Chronic Controlled Substance User PDMP Review [facility] Start: 2002 Controlled Substance Agreement Initial and Annual Review Controlled Substance Agreement Initial and Annual Review [facility] Start: 2002 Microalbumin/Creatin ine Ratio Urine Microalbumin/Creatinine Ratio Urine [facility] Start: 1997 HIV Screening HIV Screening [facility] Start: 1994 3 comp foot exam completed Foot Exam [facility] Start: 1994 Ophthalmic examinati on and evaluation Ophthalmology Exam [facility] Start: 1990 Pneumococcal Vaccine : Pediatric (0-5 Years) and At-Risk Patients (6 to 64 Years) (1 of 2 - PCV) Pneumococcal Vaccine: Pediatric (0-5 Years) and At-Risk Patients (6 to 64 Years) (1 of 2 - PCV) [facility] Start: 1984 Hepatitis C screening Hepatiti s C Virus Screening [facility] End: 02-16-2024 Basic metabolic 2000 panel - Serum or Plasma Basic Metabolic Panel (Routine) Lab Routine AM Draw for 1 Occurrences starting 02/16/2024 until 02/16/2024 [facility] Comment on above: AM Draw for 1 Occurr ences starting 02/16/2024 until 02/16/2024 End: 02-16-2024 Complete Blood Count WITHOUT Differential - in AM Complete Blood Count WITHOUT Differential - in AM Lab Routine AM Draw for 1 Occurrences starting 02/16/2024 until 02/16/2024 [facility] Comment on above: AM Draw for 1 Occurr ences starting 02/16/2024 until 02/16/2024 End: 02-16-2024 Hepatic function 2000 panel - Serum or Plasma Hepatic Function Panel (AM) Lab Routine AM Draw for 1 Occurrences starting 02/16/2024 until 02/16/2024 [facility] Comment on above: AM Draw for 1 Occurr ences starting 02/16/2024 until 02/16/2024 End: 02-16-2024 Magnesium [Mass/volume] in Serum or Plasma Magnesium (AM) Lab Routine AM Draw for 1 Occurrences starting 02/16/2024 until 02/16/2024 [facility] Comment on above: AM Draw for 1 Occurr ences starting 02/16/2024 until 02/16/2024 End: 02-16-2024 Triglyceride [Mass/volume] in Serum or Plasma Triglycerides Lab Routine AM Draw for 1 Occurrences starting 02/16/2024 until 02/16/2024 [facility] Work Phone: Comment on above: AM Draw for 1 Occurr ences starting 02/16/2024 until 02/16/2024 End: 01-13-2024 URINALYSIS W/ REFLEX TO MICROSCOPIC AND CULTURE Urinalysis with Reflex to Microscopic and Culture Lab Routine STAT for 1 Occurrences starting 01/13/2024 until 01/13/2024 [facility] Work Phone: Comment on above: STAT for 1 Occurrenc es starting 01/13/2024 until 01/13/2024 End: 02-15-2024 US Abdomen-Complete US Abdomen-Complete Imaging Routine One time imaging One time imaging for 1 Occurrences starting 02/15/2024 until 02/15/2024 [facility] Comment on above: One time imaging One time imaging for 1 Occurrences starting 02/15/2024 until 02/15/2024 Problems Active Problems Problem Classification Problem Date Last Recorded Documented Date Chronic Condition Indicator Provider Chronic kidney disease (2 sources) Chronic kidney disease stage 3; Translations: [Chronic kidney disease, stage 3 unspecified] 12-14-2019 Chronic Opal Hernandez MD Work Phone: Diabetes mellitus without complication (2 sources) Type 1 diabetes mellitus; Translations: [Type 1 diabetes mellitus without complications] 12-14-2019 Chronic Opal Hernandez MD Work Phone: Other nutritional; endocrine; and metabolic disorders (2 sources) Hypomagnesemia; Translations: [Hypomagnesemia] 12-14-2019 Chronic Opal Hernandez MD Work Phone: Acute and unspecified renal failure (8 sources) Acute kidney failure, unspecified; Translations: [Acute kidney failure, unspecified] 02-15-2024 Episodic PETER MINOT Other disorders of stomach and duodenum (3 sources) Gastroparesis; Translations: [Gastroparesis] 02-16-2024 [facility] Other disorders of stomach and duodenum (3 sources) Gastroparesis; Translations: [Gastroparesis] 02-16-2024 [facility] Pancreatic disorders (not diabetes) (8 sources) Acute pancreatitis without necrosis or infection, unspecified; Translations: [Acute pancreatitis without necrosis or infection, unspecified] 02-16-2024 Episodic Opal Hernandez MD Work Phone: Unclassified (1 source) chest pain/abd pain 02-14-2024 Past or Other Problems Problem Classification Problem Date Last Recorded Documented Date Chronic Condition Indicator Provider Abdominal pain (11 sources) Flank pain; Translations: [Unspecified abdominal pain] 02-15-2024 Episodic Comment on above: Overview: Added automatically from request for surgery [id number] Deficiency and other anemia (2 sources) Anemia; Translations: [Anemia, unspecified] 12-14-2019 Episodic Opal Hernandez MD Work Phone: Esophageal disorders (2 sources) Esophagitis; Translations: [Esophagitis, unspecified without bleeding] 12-14-2019 Episodic Opal Hernandez MD Work Phone: Fluid and electrolyte disorders (2 sources) Hypokalemia; Translations: [Hypokalemia] 12-14-2019 Episodic Opal Hernandez MD Work Phone: Nonspecific chest pain (4 sources) Chest pain 01-13-2024 Episodic Other disorders of stomach and duodenum (1 source) Gastroparesis syndrome; Translations: [Gastroparesis] 02-15-2024 Episodic Oral Deleon MD Work Phone: Procedures Date Procedure Procedure Detail Performing Clinician Start: 02-15-2024 Glucose quantitative blood xcpt reagent strip completed Oral Deleon MD Work Phone: Start: 02-15-2024 Glucose quantitative blood xcpt reagent strip completed Oral Deleon MD Work Phone: Start: 02-15-2024 Glucose quantitative blood xcpt reagent strip completed Oral Deleon MD Work Phone: Start: 02-15-2024 End: 02-15-2024 Basic metabolic panel calcium total completed Jaimie Billings MD Work Phone: Start: 02-15-2024 Ct abdomen & pelvis w/o contrast material completed Jaimie Billings MD Work Phone: Start: 02-15-2024 Glucose quantitative blood xcpt reagent strip completed Oral Deleon MD Work Phone: Start: 02-15-2024 Choriogonadotropin ( test) [Presence] in Urine completed Yoly Penarine PA Work Phone: Start: 02-15-2024 Creatinine [Mass/volume] in Urine completed Jaimie Billings MD Work Phone: Start: 02-15-2024 Osmolality of Urine completed Jaimie Billings MD Work Phone: Start: 02-15-2024 Sodium [Moles/volume] in Urine completed Jaimie molina MD Work Phone: Start: 02-15-2024 URINALYSIS W/ REFLEX TO MICROSCOPIC AND CULTURE completed Yoly L Sirrine PA Work Phone: Start: 02-15-2024 End: 02-15-2024 12 lead ECG completed Willy LIU Work Phone: Start: 02-14-2024 Beta hydroxybutyrate [Moles/volume] in Serum or Plasma completed Yoly L Sirrine PA Work Phone: Start: 02-14-2024 Comprehensive metabolic panel completed Yoly L Sirrine PA Work Phone: Start: 02-14-2024 Ethanol [Mass/volume] in Serum or Plasma completed Yoly L Sirrine PA Work Phone: Start: 02-14-2024 Lipase [Enzymatic activity/volume] in Serum or Plasma completed Yoly L Sirrine PA Work Phone: Start: 02-14-2024 Osmolality of Serum or Plasma completed Yoly L Sirrine PA Work Phone: Start: 01-13-2024 COMPLETE BLOOD COUNT, WITH DIFFERENTIAL completed Nathanael Doe MD Work Phone: Start: 01-13-2024 Comprehensive metabolic 2000 panel - Serum or Plasma completed Nathanael Doe MD Work Phone: Start: 01-13-2024 Glucose quantitative blood xcpt reagent strip completed Generic Provider Start: 01-13-2024 12 lead ECG completed Jose Fragoso MD Work Phone: Results Test Name Value Interpretation Reference Range Facility Date Time Result Note BASIC METABOLIC PANELon 10-0 Glucose [Mass/Vol] 188 High 65-99 mg/dL [facility] 02-14 07:42 -0400 (L) Fasting: <100 mg/dL, Non-Fasting: <200 mg/dL (ADA 2005) Urea nitrogen [Mass/Vol] 30 High 8-21 mg/dL [facility] 02-14 07:42 -0400 Creatinine [Mass/Vol] 2.3 High 0.4-1.1 mg/dL [facility] 02-14 07:42 -0400 GFR/1.73 sq M.predicted CKD-EPI (S/P/Bld) [Vol rate/Area] 27 Low 59 - PINF [facility] 02-14 07:42 -0400 <tr><td>eGFR</t d><td><content> 27</content><co ntent> (L)</content></ td><td>>59</td> <td></td><td> 7:42 AM EDT</td><td>[facility]</td><t d></td></tr> Comment on above: CKD-EPI (2020) in mL/min/1.73 sq meters. Sodium [Moles/Vol] 136 136-145 mmol/L [facility] 02-14 07:42 -0400 Potassium [Moles/Vol] 3.4 3.4-5.3 mmol/L [facility] 02-14 07:42 -0400 Chloride [Moles/Vol] 96 Low 98-107 mmol/L [facility] 02-14 07:42 -0400 CO2 [Moles/Vol] 27 22-33 mmol/L [facility] 02-14 07:42 -0400 Anion gap (Bld) [Moles/Vol] 13 7 - 17 [facility] 02-14 07:42 -0400 <tr><td>Anion Gap</td><td>13< /td><td>7 - 17</td><td></td ><td>02/15/2024 7:42 AM EDT</td><td>[facility]</td><t d></td></tr> Calcium [Mass/Vol] 8.9 8.7-10.5 mg/dL [facility] 02-14 07:42 -0400 Urea nitrogen/Creat inine [Mass ratio] 13 [facility] 02-14 07:42 -0400 <tr><td>BUN/Cre atinine Ratio</td><td>1 3</td><td>10.0 - 25.0 Ratio</td><td>< /td><td> 7:42 AM EDT</td><td>[facility]</td><t d></td></tr> Basic Metabolic Panelon 10-0 Glucose [Mass/Vol] 188 mg/dL High 65 - 99 mg/dL [facility] 02-14 07:42 -0400 Glucose 188 (H) 65 - 99 mg/dL 02/15/2024 7:42 AM [facility] Comment on above: Fasting: <100 mg/dL, Non-Fasting: <200 m g/dL (ADA 2005) Urea nitrogen [Mass/Vol] 30 mg/dL High 8 - 21 mg/dL [facility] 02-14 07:42 -0400 Blood Urea Nitrogen (BUN) 30 (H) 8 - 21 mg/dL 02/15/2024 7:42 AM [facility] Creatinine [Mass/Vol] 2.3 mg/dL High 0.4 - 1.1 mg/dL [facility] 02-14 07:42 -0400 Creatinine 2.3 (H) 0.4 - 1.1 mg/dL 02/15/2024 7:42 AM [facility] Sodium [Moles/Vol] 136 mmol/L 136 - 145 mmol/L [facility] 02-14 07:42 -0400 Sodium 136 136 - 145 mmol/L 02/15/2024 7:42 AM EDT [facility] Potassium [Moles/Vol] 3.4 mmol/L 3.4 - 5.3 mmol/L [facility] 02-14 07:42 -0400 Potassium 3.4 3.4 - 5.3 mmol/L 02/15/2024 7:42 AM EDT [facility] Chloride [Moles/Vol] 96 mmol/L Low 98 - 107 mmol/L [facility] 02-14 07:42 -0400 Chloride 96 (L) 98 - 107 mmol/L 02/15/2024 7:42 AM T [facility] CO2 [Moles/Vol] 27 mmol/L 22 - 33 mmol/L [facility] 02-14 07:42 -0400 CO2 27 22 - 33 mmol/L 02/15/2024 7:42 AM T [facility] Calcium [Mass/Vol] 8.9 mg/dL 8.7 - 10.5 mg/dL [facility] 02-14 07:42 -0400 Calcium 8.9 8.7 - 10.5 mg/dL 02/15/2024 7:42 AM T [facility] CT Abdomen+pelvis w/o contra ston 02-15-2024 Radiology Study observation (narrative) [facility] No acute findings. Interpreted by: Jose Self MD Web Architect I personally reviewed the images and the resident's preliminary report and AGREE with the report as it is now presented (RADPAL1). [facility] 02-14 08:13 -0400 No acute findings. Interpreted by: Jose Self MD Web Architect I personally reviewed the images and the resident's preliminary report and AGREE with the report as it is now presented ([email or web address]). EXAMINATION: CT ABDOMEN AND PELVIS WITHOUT CONTRAST CLINICAL INFORMATION: Left upper quadrant pain radiating to left flank, evaluation for kidney stones, pyonephritis. Pancreatitis. COMPARISON: CT abdomen and pelvis 12/29/2019 TECHNIQUE: Multidetector volumetric imaging was performed from the lung bases through the pubic symphysis. Sagittal and coronal reformatted images were obtained on the technologist workstation. This CT examination was performed using dose optimization techniques as appropriate, variously including the following: *Automated exposure control *Adjustment of mA and/or kV according to patient size (this includes techniques or standardized protocols for targeted exams where dose is matched to indication/vanessa son for exam; i.e. extremities or head) *Use of iterative reconstruction technique Total exam dose-length product 269 mGy-cm. FINDINGS: VISUALIZED CHEST: Normal. LIVER: Normal size, contours, and attenuation. No focal lesion. GALLBLADDER: Normal. PANCREAS: Normal. SPLEEN: Normal. ADRENAL GLANDS: Normal. KIDNEYS: Normal renal parenchyma. No hydronephrosis . No calculi. BLADDER: Normal. GASTROINTESTIN AL TRACT: Stomach nondistended. Normal small bowel. Normal colon. Normal appendix. No bowel obstruction. PERITONEUM: No free fluid. ABDOMINAL WALL/SOFT TISSUES: Gastric stimulator in the left abdominal wall. No hernia. LYMPHOVASCULAR : No abdominopelvic lymphadenopath y. Normal caliber aorta. No atherosclerosi s. PELVIC VISCERA: Normal. OSSEOUS: No acute or suspicious osseous findings. MERCER 02-14 08:13 0400 EXAMINATION: CT ABDOMEN AND PELVIS WITHOUT CONTRAST CLINICAL INFORMATION: Left upper quadrant pain radiating to left flank, evaluation for kidney stones, pyonephritis. Pancreatitis. COMPARISON: CT abdomen and pelvis 12/29/2019 TECHNIQUE: Multidetector volumetric imaging was performed from the lung bases through the pubic symphysis. Sagittal and coronal reformatted images were obtained on the technologist workstation. This CT examination was performed using dose optimization techniques as appropriate, variously including the following: *Automated exposure control *Adjustment of mA and/or kV according to patient size (this includes techniques or standardized protocols for targeted exams where dose is matched to indication/reas on for exam; i.e. extremities or head) *Use of iterative reconstruction technique Total exam dose-length product 269 mGy-cm. FINDINGS: VISUALIZED CHEST: Normal. LIVER: Normal size, contours, and attenuation. No focal lesion. GALLBLADDER: Normal. PANCREAS: Normal. SPLEEN: Normal. ADRENAL GLANDS: Normal. KIDNEYS: Normal renal parenchyma. No hydronephrosis. No calculi. BLADDER: Normal. GASTROINTESTINA L TRACT: Stomach nondistended. Normal small bowel. Normal colon. Normal appendix. No bowel obstruction. PERITONEUM: No free fluid. ABDOMINAL WALL/SOFT TISSUES: Gastric stimulator in the left abdominal wall. No hernia. LYMPHOVASCULAR: No abdominopelvic lymphadenopathy . Normal caliber aorta. No atherosclerosis . PELVIC VISCERA: Normal. OSSEOUS: No acute or suspicious osseous findings. Daniel Henry MD - 02/15/2024 EXAMINATION: CT ABDOMEN AND PELVIS WITHOUT CONTRAST CLINICAL INFORMATION: Left upper quadrant pain radiating to left flank, evaluation for kidney stones, pyonephritis. Pancreatitis. COMPARISON: CT abdomen and pelvis 12/29/2019 TECHNIQUE: Multidetector volumetric imaging was performed from the lung bases through the pubic symphysis. Sagittal and coronal reformatted images were obtained on the technologist workstation. This CT examination was performed using dose optimization techniques as appropriate, variously including the following: *Automated exposure control *Adjustment of mA and/or kV according to patient size (this includes techniques or standardized protocols for targeted exams where dose is matched to indication/vanessa son for exam; i.e. extremities or head) *Use of iterative reconstruction technique Total exam dose-length product 269 mGy-cm. FINDINGS: VISUALIZED CHEST: Normal. LIVER: Normal size, contours, and attenuation. No focal lesion. GALLBLADDER: Normal. PANCREAS: Normal. SPLEEN: Normal. ADRENAL GLANDS: Normal. KIDNEYS: Normal renal parenchyma. No hydronephrosis . No calculi. BLADDER: Normal. GASTROINTESTIN AL TRACT: Stomach nondistended. Normal small bowel. Normal colon. Normal appendix. No bowel obstruction. PERITONEUM: No free fluid. ABDOMINAL WALL/SOFT TISSUES: Gastric stimulator in the left abdominal wall. No hernia. LYMPHOVASCULAR : No abdominopelvic lymphadenopath y. Normal caliber aorta. No atherosclerosi s. PELVIC VISCERA: Normal. OSSEOUS: No acute or suspicious osseous findings. IMPRESSION: No acute findings. Interpreted by: Jose Self MD Web Architect I personally reviewed the images and the resident's preliminary report and AGREE with the report as it is now presented ([email or web address]). [facility] 02-14 08:84 -[id number] Daniel Henry MD - 02/15/2024 EXAMINATION: CT ABDOMEN AND PELVIS WITHOUT CONTRAST CLINICAL INFORMATION: Left upper quadrant pain radiating to left flank, evaluation for kidney stones, pyonephritis. Pancreatitis. COMPARISON: CT abdomen and pelvis 12/29/2019 TECHNIQUE: Multidetector volumetric imaging was performed from the lung bases through the pubic symphysis. Sagittal and coronal reformatted images were obtained on the technologist workstation. This CT examination was performed using dose optimization techniques as appropriate, variously including the following: *Automated exposure control *Adjustment of mA and/or kV according to patient size (this includes techniques or standardized protocols for targeted exams where dose is matched to indication/reas on for exam; i.e. extremities or head) *Use of iterative reconstruction technique Total exam dose-length product 269 mGy-cm. FINDINGS: VISUALIZED CHEST: Normal. LIVER: Normal size, contours, and attenuation. No focal lesion. GALLBLADDER: Normal. PANCREAS: Normal. SPLEEN: Normal. ADRENAL GLANDS: Normal. KIDNEYS: Normal renal parenchyma. No hydronephrosis. No calculi. BLADDER: Normal. GASTROINTESTINA L TRACT: Stomach nondistended. Normal small bowel. Normal colon. Normal appendix. No bowel obstruction. PERITONEUM: No free fluid. ABDOMINAL WALL/SOFT TISSUES: Gastric stimulator in the left abdominal wall. No hernia. LYMPHOVASCULAR: No abdominopelvic lymphadenopathy . Normal caliber aorta. No atherosclerosis . PELVIC VISCERA: Normal. OSSEOUS: No acute or suspicious osseous findings. IMPRESSION: No acute findings. Interpreted by: Jose Self MD Web Architect I personally reviewed the images and the resident's preliminary report and AGREE with the report as it is now presented (RADPAL1). CT Abdomen+pelvis w/o contra stOrdered By: Daniel Henry on 02-15-2024 [facility] Work Phone: 02-14 08:13 -0400 Creat Ur-mCncon 02-15-2024 Creatinine (U) [Mass/Vol] 426 mg/dL [facility] 02-14 03:51 -0400 (L) Reference range not established for random specimen. Creatinine, Urine, Randomon 02-15-2024 Creatinine (U) [Mass/Vol] 426 mg/dL [facility] 02-14 03:51 -0400 Creatinine, Urine, Random 426 mg/dL 02/15/2024 3:51 AM EDT [facility] Comment on above: Reference range not established for rand om specimen. ECG 12 leadOrdered By: Marta Franco on 02-15-2024 Ventricular rate 100 BPM [facility] Work Phone: 02-14 07:39 -0400 Ventricular rate 100 BPM EKG [facility] Atrial rate 100 BPM [facility] Work Phone: 02-14 07:39 -0400 Atrial rate 100 BPM EKG [facility] QRS duration 80 ms [facility] Work Phone: 02-14 07:39 -0400 QRS duration 80 ms EKG [facility] QTC calculation (Bazett) 491 ms [facility] Work Phone: 02-14 07:39 -0400 QTC calculation (Bazett) 491 ms EKG [facility] P axis 62 degrees [facility] Work Phone: 02-14 07:39 -0400 P axis 62 degrees EKG [facility] R axis -16 degrees [facility] Work Phone: 02-14 07:39 -0400 R axis -16 degrees EKG [facility] T axis 36 degrees [facility] Work Phone: 02-14 07:39 -0400 T axis 36 degrees EKG [facility] Work Phone: 02-14 07:39 -0400 ECG 12 leadon 02-15-2024 Poor data quality, interpretation may be adversely affected Sinus rhythm with short WI Left axis deviation Pulmonary disease pattern Septal infarct , age undetermined ST & T wave abnormality, consider lateral ischemia Abnormal ECG When compared with ECG of 13-Jan-2024 02:58, Septal infarct is now Present Nonspecific T wave abnormality now evident in Lateral leads Confirmed by MD Joan, Marta ([id number]) on 02/15/2024 7:39:07 AM EKG [facility] 02-14 07:39 -0400 Poor data quality, interpretation may be adversely affected Sinus rhythm with short WI Left axis deviation Pulmonary disease pattern Septal infarct , age undetermined ST & T wave abnormality, consider lateral ischemia Abnormal ECG When compared with ECG of 13-Jan-2024 02:58, Septal infarct is now Present Nonspecific T wave abnormality now evident in Lateral leads Confirmed by MD Franco Komsu ([id number]) on 02/15/2024 7:39:07 AM Marta Franco MD - 02/15/2024 Poor data quality, interpretation may be adversely affected Sinus rhythm with short WI Left axis deviation Pulmonary disease pattern Septal infarct , age undetermined ST & T wave abnormality, consider lateral ischemia Abnormal ECG When compared with ECG of 13-Jan-2024 02:58, Septal infarct is now Present Nonspecific T wave abnormality now evident in Lateral leads Confirmed by MD Franco Komsu (42) on 02/15/2024 7:39:07 AM [facility] 02-14 07:39 -0400 Marta Franco MD - 02/15/2024 Poor data quality, interpretation may be adversely affected Sinus rhythm with short WI Left axis deviation Pulmonary disease pattern Septal infarct , age undetermined ST & T wave abnormality, consider lateral ischemia Abnormal ECG When compared with ECG of 13-Jan-2024 02:58, Septal infarct is now Present Nonspecific T wave abnormality now evident in Lateral leads Confirmed by MD Franco Komsu ([id number]) on 02/15/2024 7:39:07 AM Ventricular rate 79 BPM [facility] 02-14 12:53 -0400 Ventricular rate 79 BPM EKG [facility] Atrial rate 79 BPM [facility] 02-14 12:53 -0400 Atrial rate 79 BPM EKG [facility] QRS duration 94 ms [facility] 02-14 12:53 -0400 QRS duration 94 ms EKG [facility] QTC calculation (Bazett) 482 ms [facility] 02-14 12:53 -0400 QTC calculation (Bazett) 482 ms EKG [facility] P axis 69 degrees [facility] 02-14 12:53 -0400 P axis 69 degrees EKG [facility] R axis -29 degrees [facility] 02-14 12:53 -0400 R axis -29 degrees EKG [facility] T axis 32 degrees [facility] 02-14 12:53 -0400 T axis 32 degrees EKG [facility] Suspect unspecified pacemaker failure Normal sinus rhythm Possible Left atrial enlargement Septal infarct (cited on or before 15-Feb-2024) Abnormal ECG When compared with ECG of 15-Feb-2024 00:54, (unconfirmed) Questionable change in initial forces of Septal leads ST no longer depressed in Anterior leads Confirmed by MD Franco Komsu ([id number]) on 02/15/2024 12:52:56 PM EKG [facility] 02-14 12:53 -0400 Suspect unspecified pacemaker failure Normal sinus rhythm Possible Left atrial enlargement Septal infarct (cited on or before 15-Feb-2024) Abnormal ECG When compared with ECG of 15-Feb-2024 00:54, (unconfirmed) Questionable change in initial forces of Septal leads ST no longer depressed in Anterior leads Confirmed by MD Franco Komsu (42) on 02/15/2024 12:52:56 PM Marta Franco MD - 02/15/2024 Suspect unspecified pacemaker failure Normal sinus rhythm Possible Left atrial enlargement Septal infarct (cited on or before 15-Feb-2024) Abnormal ECG When compared with ECG of 15-Feb-2024 00:54, (unconfirmed) Questionable change in initial forces of Septal leads ST no longer depressed in Anterior leads Confirmed by MD Franco Komsu (42) on 02/15/2024 12:52:56 PM [facility] 02-14 12:53 -0400 Marta Franco MD - 02/15/2024 Suspect unspecified pacemaker failure Normal sinus rhythm Possible Left atrial enlargement Septal infarct (cited on or before 15-Feb-2024) Abnormal ECG When compared with ECG of 15-Feb-2024 00:54, (unconfirmed) Questionable change in initial forces of Septal leads ST no longer depressed in Anterior leads Confirmed by MD Franco Komsu (42) on 02/15/2024 12:52:56 PM [facility] 02-14 12:53 -0400 Hemoglobin A1C with Estimate d Average Glucoseon 02-15-2024 HbA1c (Bld) [Mass fraction] 6.2 High <5.7 % [facility] 02-14 07:35 -0400 (L) A1c% Interpretation~ 5.7 - 6.0 Increase risk of diabetes~6.1 - 6.4 Higher risk of diabetes~> or = 6.5 Consistent with diabetes~ ~Diabetes Care, 33(Supp 1):S1-S62009 Average glucose Estimated from glycated hemoglobin (Bld) [Mass/Vol] 131 mg/dL [facility] 02-14 07:35 -0400 Hemoglobin A1c with Estimate d Average Glucoseon 02-15-2024 HbA1c (Bld) [Mass fraction] 6.2 % High NINF - 5.7 % [facility] 02-14 07:35 -0400 Hemoglobin A1C 6.2 (H) <5.7 % 02/15/2024 7:35 AM [facility] Comment on above: A1c% Interpretation 5.7 - 6.0 Increase risk of diabetes 6.1 - 6.4 Higher risk of diabetes > or = 6.5 Consistent with diabetes Diabetes Care, 33(Supp 1):S1-S61, 2009 Average glucose Estimated from glycated hemoglobin (Bld) [Mass/Vol] 131 mg/dL [facility] 02-14 07:35 -0400 Estimated Average Glucose 131 mg/dL 02/15/2024 7:35 AM [facility] Interpretation and review of laboratory results Abnormal [facility] 02-14 07:35 -0400 [facility] 02-14 07:35 -0400 Osmolality Uron 02-15-2024 Osmolality (U) [Osmolality] 366 [facility] 02-14 11:51 -0400 <tr><td>Osmolal ity, Urine</td><td>3 66</td><td>50 - 1,200 mOsm/Kg</td><td ></td><td>02/14 11:51 AM EDT</td><td>[facility]</td><td> </td></tr> POC Glucoseon 02-15-2024 Glucose [Mass/Vol] 117 mg/dL High 65-99 mg/dL [facility] 02-14 16:47 -0400 Glucose [Mass/Vol] 132 mg/dL High 65-99 mg/dL [facility] 02-14 20:32 -0400 Glucose [Mass/Vol] 93 mg/dL 65-99 mg/dL [facility] 02-14 11:39 -0400 Glucose [Mass/Vol] 118 mg/dL High 65-99 mg/dL [facility] 02-14 03:24 -0400 Glucose [Mass/Vol] 173 mg/dL High 65-99 mg/dL [facility] 02-14 07:21 -0400 [facility] Glucose (Bld) [Mass/Vol] 118 mg/dL High 65 - 99 mg/dL [facility] 02-14 03:24 -0400 POC Glucose 118 (H) 65 - 99 mg/dL 02/15/2024 3:24 AM EDT Interpretation and review of laboratory results Abnormal [facility] 02-14 03:24 -0400 Glucose (Bld) [Mass/Vol] 173 mg/dL High 65 - 99 mg/dL [facility] 02-14 07:21 -0400 POC Glucose 173 (H) 65 - 99 mg/dL 02/15/2024 7:21 AM EDT Glucose (Bld) [Mass/Vol] 93 mg/dL 65 - 99 mg/dL [facility] 02-14 11:40 -0400 POC Glucose 93 65 - 99 mg/dL 02/15/2024 11:39 AM EDT Glucose (Bld) [Mass/Vol] 117 mg/dL High 65 - 99 mg/dL [facility] 02-14 16:47 -0400 POC Glucose 117 (H) 65 - 99 mg/dL 02/15/2024 4:47 PM EDT Interpretation and review of laboratory results Abnormal [facility] 02-14 16:47 -0400 [facility] 02-14 16:47 -0400 Glucose (Bld) [Mass/Vol] 132 mg/dL High 65 - 99 mg/dL [facility] 02-14 20:32 -0400 POC Glucose 132 (H) 65 - 99 mg/dL 02/15/2024 8:32 PM EDT Interpretation and review of laboratory results Abnormal [facility] 02-14 20:32 -0400 [facility] 02-14 20:32 -0400 POCT , UrineOrdered By: Ely Hooper on 02-15-2024 Preg Test, Ur Negative [facility] Work Phone: 02-14 01:38 -0400 Preg Test, Ur Negative Lot Number 0 [facility] Work Phone: 02-14 01:38 -0400 Lot Number 0 Benefits Manager Pass [facility] Work Phone: 02-14 01:38 -0400 Benefits Manager Pass Interpretation and review of laboratory results Normal [facility] Work Phone: 02-14 01:38 -0400 Sodium Ur-sCncon 02-15-2024 Sodium (U) [Moles/Vol] 32 mmol/L [facility] 02-14 03:51 -0400 (L) Reference range not established for random specimen. Sodium, Urine, Randomon Sodium (U) [Moles/Vol] 32 mmol/L [facility] 02-14 03:51 -0400 Sodium, Urine Random 32 mmol/L 02/15/2024 3:51 AM EDT [facility] Comment on above: Reference range not established for rand om specimen. Urinalysis reflex Microscopi c and Cultureon 02-15-2024 Color (U) [facility] 02-14 01:40 -0400 <tr><td>Color</ td><td>Yellow</ td><td></td><td ></td><td>02/14 1:40 AM EDT</td><td>[facility]</td><t d></td></tr> Clarity (U) Slightly cloudy [facility] 02-14 01:40 -0400 <tr><td>Clarity </td><td>Slight ly cloudy</td><td> </td><td></td>< td>02/15/2024 1:40 AM EDT</td><td>[facility]</td><t d></td></tr> Specific gravity Test strip (U) [Rel density] 1.018 1.003 - 1.030 [facility] 02-14 01:40 0400 <tr><td>Specifi c [place]</td><td >1.018</td><td> 1.003 - 1.030</td><td>< /td><td> 024 1:40 AM EDT</td><td>[facility]</td><t d></td></tr> pH Test strip (U) 5.0 5.0 - 8.0 [facility] 02-14 01:40 0400 <tr><td>pH</td> <td>5.0</td><td >5.0 - 8.0</td><td></t d><td> 1:40 AM EDT</td><td>[facility]</td><t d></td></tr> Leukocyte esterase Test strip Ql (U) Negative Negative [facility] 02-14 01:40 0400 <tr><td>Leukocy te Esterase</td><t d>Negative</td> <td>Negative</t d><td></td><td> 02/15/2024 1:40 AM EDT</td><td>[facility]</td><t d></td></tr> Nitrite Test strip Ql (U) Negative Negative [facility] 02-14 01:40 0400 <tr><td>Nitrite </td><td>Negati ve</td><td>Nega tive</td><td></ td><td>02/15/20 24 1:40 AM EDT</td><td>[facility]</td><t d></td></tr> Protein Test strip (U) [Mass/Vol] Small (30 mg/dL) Abnormal Negative [facility] 02-14 01:40 -0400 <tr><td>Protein </td><td><lauren nt>Small (30 mg/dL)</content ><content> (A)</content></ td><td>Negative </td><td></td>< td>02/15/2024 1:40 AM EDT</td><td>[facility]</td><t d></td></tr> Glucose Test strip (U) [Mass/Vol] 0 0-99 mg/dL [facility] 02-14 01:40 -0400 Ketones Test strip (U) [Mass/Vol] Negative [facility] 02-14 01:40 -0400 <tr><td>Ketones </td><td>Negati ve</td><td>Nega tive</td><td></ td><td>02/15/20 24 1:40 AM EDT</td><td>[facility]</td><t d></td></tr> Hemoglobin Test strip Ql (U) Negative [facility] 02-14 01:40 -0400 <tr><td>Blood</ td><td>Negative </td><td>Negati ve</td><td></td ><td>02/15/2024 1:40 AM EDT</td><td>[facility]</td><t d></td></tr> Bilirubin Test strip (U) [Mass/Vol] Negative [facility] 02-14 01:40 -0400 <tr><td>Bilirub in</td><td>Nega tive</td><td>Ne gative</td><td> </td><td>2023 1:40 AM EDT</td><td>[facility]</td><t d></td></tr> WBC LM.HPF (Urine sed) [#/Area] 1 [facility] 02-14 01:41 -0400 <tr><td>WBC</td ><td>1</td><td> 0 - 4 per hpf</td><td></t d><td> 4 1:41 AM EDT</td><td>[facility]</td><t d></td></tr> RBC LM.HPF (Urine sed) [#/Area] 2 [facility] 02-14 01:41 -0400 <tr><td>RBC</td ><td>2</td><td> 0 - 4 per hpf</td><td></t d><td> 4 1:41 AM EDT</td><td>[facility]</td><t d></td></tr> Epithelial cells.squamous LM.HPF (Urine sed) [#/Area] 5 PER HPF [facility] 02-14 01:41 -0400 <tr><td>Squamou s Epithelial Cells</td><td>5 </td><td>PER HPF</td><td></t d><td> 4 1:41 AM EDT</td><td>[facility]</td><t d></td></tr> Hyaline casts LM.LPF (Urine sed) [#/Area] 11 [facility] 02-14 01:41 -0400 <tr><td>Hyaline Casts</td><td>< content>11</con tent><content> (H)</content></ td><td>0 - 4 PER LPF</td><td></t d><td> 4 1:41 AM EDT</td><td>[facility]</td><t d></td></tr> Urinalysis with Reflex to Mi croscopic and Cultureon 02-15-2024 Glucose Test strip (U) [Mass/Vol] 0 mg/dL 0 - 99 mg/dL [facility] 02-14 01:41 -0400 Glucose 0 0 - 99 mg/dL 02/15/2024 1:40 AM EDT [facility] Interpretation and review of laboratory results Abnormal [facility] 02-14 01:41 -0400 B-Hydroxybutyrateon 02-14-20 Beta hydroxybutyrat e [Moles/Vol] 0.12 mmol/L NINF - 0.28 mmol/L [facility] 02-14 03:42 -0400 B-Hydroxybutyra te 0.12 <0.28 mmol/L 02/15/2024 3:42 AM EDT [facility] Comment on above: In the presence of uncontrolled diabetes , serum beta-hydroxybutyrate levels greater than or equal to 3.80 mmol/L (patients age 16 and over) or greater than or equal to 3.00 mmol/L (patients under age 16) support a clinical diagnosis of Diabetic Ketoacidosis (DKA) - Ref: Diabetes Care 31: 643 (2008). B-OH-Butyr SerPl-sCncon Beta hydroxybutyrat e [Moles/Vol] 0.12 <0.28 mmol/L [facility] 02-14 03:42 -0400 (L) In the presence of uncontrolled diabetes, serum beta-hydroxybut yrate levels greater than or equal to 3.80 mmol/L (patients age 16 and over) or greater than or equal to 3.00 mmol/L (patients under age 16) support a clinical diagnosis of Diabetic Ketoacidosis (DKA) - Ref: Diabetes Care 31: 643 (2008). CBC, with Differentialon WBC Auto (Bld) [#/Vol] 7.7 [facility] 02-13 22:17 -0400 <tr><td>White Blood Cell Count</td><td>7 .7</td><td>4.0 - 11.0 Thou/uL</td><td ></td><td>02/13 10:17 PM EDT</td><td>[facility]</td><t d></td></tr> Platelets Auto (Bld) [#/Vol] 406 [facility] 02-13 22:17 -0400 <tr><td>Platele t Count</td><td>4 06</td><td>150 - 450 Thou/uL</td><td ></td><td>02/13 10:17 PM EDT</td><td>[facility]</td><t d></td></tr> Hemoglobin (Bld) [Mass/Vol] 8.5 Low 11.7-15.7 g/dL [facility] 02-13 22:17 -0400 Hematocrit Auto (Bld) [Volume fraction] 27.9 Low 35.0-47.0 % [facility] 02-13 22:17 -0400 RBC Auto (Bld) [#/Vol] 3.57 Low [facility] 02-13 22:17 -0400 <tr><td>Red Blood Cell Count</td><td>< content>3.57</c ontent><content > (L)</content></ td><td>4.00 - 5.40 Mil/uL</td><td> </td><td>2023 10:17 PM EDT</td><td>[facility]</td><t d></td></tr> MCV Auto (RBC) [Entitic vol] 78 Low 80-100 fL [facility] 02-13 22:17 -0400 MCH Auto (RBC) [Entitic mass] 23.8 Low 26.0-34.0 pg [facility] 02-13 22:17 -0400 MCHC Auto (RBC) [Mass/Vol] 30.5 30.0-36.0 g/dL [facility] 02-13 22:17 -0400 Erythrocyte distribution width Auto (RBC) [Ratio] 17.8 High 11.5-14.5 % [facility] 02-13 22:17 -0400 Platelet mean volume Auto (Bld) [Entitic vol] 9.5 7.5-12.5 fL [facility] 02-13 22:17 -0400 Neutrophils/10 0 WBC Auto (Bld) 62.8 % [facility] 02-13 22:17 -0400 Immature granulocytes/1 00 WBC Auto (Bld) 0.3 % [facility] 02-13 22:17 -0400 Lymphocytes/10 0 WBC Auto (Bld) 26.3 % [facility] 02-13 22:17 -0400 Monocytes/100 WBC Auto (Bld) 7.7 % [facility] 02-13 22:17 -0400 Eosinophils/10 0 WBC Auto (Bld) 2.1 % [facility] 02-13 22:17 -0400 Basophils/100 WBC Auto (Bld) 0.8 % [facility] 02-13 22:17 -0400 Neutrophils Auto (Bld) [#/Vol] 4.85 [facility] 02-13 22:17 -0400 <tr><td>Abs Neutrophils Auto</td><td>4. 85</td><td>2.00 - 7.50 Thou/uL</td><td ></td><td>02/13 10:17 PM EDT</td><td>[facility]</td><t d></td></tr> Immature granulocytes Auto (Bld) [#/Vol] 0.02 [facility] 02-13 22:17 -0400 <tr><td>Abs Immature Granulocytes</t d><td>0.02</td> <td>0.00 - 0.10 Thou/uL</td><td ></td><td>02/13 10:17 PM EDT</td><td>[facility]</td><t d></td></tr> Lymphocytes Auto (Bld) [#/Vol] 2.03 [facility] 02-13 22:17 -0400 <tr><td>Abs Lymphocytes Auto</td><td>2. 03</td><td>1.50 - 4.50 Thou/uL</td><td ></td><td>02/13 10:17 PM EDT</td><td>[facility]</td><t d></td></tr> Monocytes Auto (Bld) [#/Vol] 0.59 [facility] 02-13 22:17 -0400 <tr><td>Abs Monocytes Auto</td><td>0. 59</td><td>0.20 - 1.50 Thou/uL</td><td ></td><td>02/13 10:17 PM EDT</td><td>[facility]</td><t d></td></tr> Eosinophils Auto (Bld) [#/Vol] 0.16 [facility] 02-13 22:17 -0400 <tr><td>Abs Eosinophils Auto</td><td>0. 16</td><td>0.00 - 0.70 Thou/uL</td><td ></td><td>02/13 10:17 PM EDT</td><td>[facility]</td><t d></td></tr> Basophils Auto (Bld) [#/Vol] 0.06 [facility] 02-13 22:17 -0400 <tr><td>Abs Basophils Auto</td><td>0. 06</td><td>0.00 - 0.20 Thou/uL</td><td ></td><td>02/13 10:17 PM EDT</td><td>[facility]</td><t d></td></tr> Complete Blood Count, with D ifferentialon 02-14-2024 Hemoglobin (Bld) [Mass/Vol] 8.5 g/dL Low 11.7 - 15.7 g/dL [facility] 02-13 22:17 -0400 Hemoglobin 8.5 (L) 11.7 - 15.7 g/dL 02/14/2024 10:17 PM EDT [facility] Hematocrit Auto (Bld) [Volume fraction] 27.9 % Low 35.0 - 47.0 % [facility] 02-13 22:17 -0400 Hematocrit 27.9 (L) 35.0 - 47.0 % 02/14/2024 10:17 PM [facility] MCV Auto (RBC) [Entitic vol] 78 fL Low 80 - 100 fL [facility] 02-13 22:17 -0400 MCV 78 (L) 80 - 100 fL 02/14/2024 10:17 PM [facility] MCH Auto (RBC) [Entitic mass] 23.8 pg Low 26.0 - 34.0 pg [facility] 02-13 22:17 -0400 MCH 23.8 (L) 26.0 - 34.0 pg 02/14/2024 10:17 PM [facility] MCHC Auto (RBC) [Mass/Vol] 30.5 g/dL 30.0 - 36.0 g/dL [facility] 02-13 22:17 -0400 MCHC 30.5 30.0 - 36.0 g/dL 02/14/2024 10:17 PM [facility] Erythrocyte distribution width Auto (RBC) [Ratio] 17.8 % High 11.5 - 14.5 % [facility] 02-13 22:17 -0400 RDW 17.8 (H) 11.5 - 14.5 % 02/14/2024 10:17 PM [facility] Platelet mean volume Auto (Bld) [Entitic vol] 9.5 fL 7.5 - 12.5 fL [facility] 02-13 22:17 -0400 MPV 9.5 7.5 - 12.5 fL 02/14/2024 10:17 PM [facility] Neutrophils/10 0 WBC Auto (Bld) 62.8 % [facility] 02-13 22:17 -0400 Neutrophils Auto 62.8 % 02/14/2024 10:17 PM [facility] Immature granulocytes/1 00 WBC Auto (Bld) 0.3 % [facility] 02-13 22:17 -0400 Immature Granulocytes 0.3 % 02/14/2024 10:17 PM [facility] Lymphocytes/10 0 WBC Auto (Bld) 26.3 % [facility] 02-13 22:17 -0400 Lymphocytes Auto 26.3 % 02/14/2024 10:17 PM [facility] Monocytes/100 WBC Auto (Bld) 7.7 % [facility] 02-13 22:17 -0400 Monocytes Auto 7.7 % 02/14/2024 10:17 PM [facility] Eosinophils/10 0 WBC Auto (Bld) 2.1 % [facility] 02-13 22:17 -0400 Eosinophils Auto 2.1 % 02/14/2024 10:17 PM [facility] Basophils/100 WBC Auto (Bld) 0.8 % [facility] 02-13 22:17 -0400 Basophils Auto 0.8 % 02/14/2024 10:17 PM [facility] 02-14-2024 Glucose [Mass/Vol] 209 High 65-99 mg/dL [facility] 02-13 22:45 -0400 (L) Fasting: <100 mg/dL, Non-Fasting: <200 mg/dL (ADA 2005) Urea nitrogen [Mass/Vol] 33 High 8-21 mg/dL [facility] 02-13 22:45 -0400 Creatinine [Mass/Vol] 2.6 High 0.4-1.1 mg/dL [facility] 02-13 22:45 -0400 GFR/1.73 sq M.predicted CKD-EPI (S/P/Bld) [Vol rate/Area] 23 Low 59 - PINF [facility] 02-13 22:45 -0400 <tr><td>eGFR</t d><td><content> 23</content><co ntent> (L)</content></ td><td>>59</td> <td></td><td> 10:45 PM EDT</td><td>[facility]</td><t d></td></tr> Comment on above: CKD-EPI (2020) in mL/min/1.73 sq meters. Sodium [Moles/Vol] 134 Low 136-145 mmol/L [facility] 02-13 22:45 -0400 Potassium [Moles/Vol] 3.4 3.4-5.3 mmol/L [facility] 02-13 22:45 -0400 Chloride [Moles/Vol] 93 Low 98-107 mmol/L [facility] 02-13 22:45 -0400 CO2 [Moles/Vol] 23 22-33 mmol/L [facility] 02-13 22:45 -0400 Calcium [Mass/Vol] 9.0 8.7-10.5 mg/dL [facility] 02-13 22:45 -0400 ALP [Catalytic activity/Vol] 115 32-122 U/L [facility] 02-13 22:45 -0400 AST [Catalytic activity/Vol] 25 10-50 U/L [facility] 02-13 22:45 -0400 ALT [Catalytic activity/Vol] 14 10-50 U/L [facility] 02-13 22:45 -0400 Bilirubin [Mass/Vol] 0.2 0.2-1.0 mg/dL [facility] 02-13 22:45 -0400 Protein [Mass/Vol] 7.8 6.3-8.3 g/dL [facility] 02-13 22:45 -0400 Albumin [Mass/Vol] 4.4 3.5-5.0 g/dL [facility] 02-13 22:45 -0400 Urea nitrogen/Creat inine [Mass ratio] 13 [facility] 02-13 22:45 -0400 <tr><td>BUN/Cre atinine Ratio</td><td>1 3</td><td>10.0 - 25.0 Ratio</td><td>< /td><td> 10:45 PM EDT</td><td>[facility]</td><t d></td></tr> Globulin Calc (S) [Mass/Vol] 3.4 1.5-3.9 g/dL [facility] 02-13 22:45 -0400 Albumin/Globul in [Mass ratio] 1.3 [facility] 02-13 22:45 -0400 <tr><td>Albumin /Globulin Ratio</td><td>1 .3</td><td>1.0 - 3.0 Ratio</td><td>< /td><td> 10:45 PM EDT</td><td>[facility]</td><t d></td></tr> Anion gap (Bld) [Moles/Vol] 18 High 7 - [facility] 02-13 22:45 -0400 <tr><td>Anion Gap</td><td><co ntent>18</luaren nt><content> (H)</content></ td><td> - </td><td></td ><td>02/14/2024 10:45 PM EDT</td><td>[facility]</td><t d></td></tr> Glucose [Mass/Vol] 209 mg/dL High 65 - 99 mg/dL [facility] 02-13 22:45 -0400 Glucose 209 (H) 65 - 99 mg/dL 02/14/2024 10:45 PM EDT [facility] Comment on above: Fasting: <100 mg/dL, Non-Fasting: <200 m g/dL (ADA 2005) Urea nitrogen [Mass/Vol] 33 mg/dL High 8 - 21 mg/dL [facility] 02-13 22:45 -0400 Blood Urea Nitrogen (BUN) 33 (H) 8 - 21 mg/dL 02/14/2024 10:45 PM [facility] Creatinine [Mass/Vol] 2.6 mg/dL High 0.4 - 1.1 mg/dL [facility] 02-13 22:45 -0400 Creatinine 2.6 (H) 0.4 - 1.1 mg/dL 02/14/2024 10:45 PM [facility] Sodium [Moles/Vol] 134 mmol/L Low 136 - 145 mmol/L [facility] 02-13 22:45 -0400 Sodium 134 (L) 136 - 145 mmol/L 02/14/2024 10:45 PM [facility] Potassium [Moles/Vol] 3.4 mmol/L 3.4 - 5.3 mmol/L [facility] 02-13 22:45 -0400 Potassium 3.4 3.4 - 5.3 mmol/L 02/14/2024 10:45 PM [facility] Chloride [Moles/Vol] 93 mmol/L Low 98 - 107 mmol/L [facility] 02-13 22:45 -0400 Chloride 93 (L) 98 - 107 mmol/L 02/14/2024 10:45 PM [facility] CO2 [Moles/Vol] 23 mmol/L 22 - 33 mmol/L [facility] 02-13 22:45 -0400 CO2 23 22 - 33 mmol/L 02/14/2024 10:45 PM [facility] Calcium [Mass/Vol] 9.0 mg/dL 8.7 - 10.5 mg/dL [facility] 02-13 22:45 -0400 Calcium 9.0 8.7 - 10.5 mg/dL 02/14/2024 10:45 PM [facility] ALP [Catalytic activity/Vol] 115 U/L 32 - 122 U/L [facility] 02-13 22:45 -0400 Alkaline Phosphatase 115 32 - 122 U/L 02/14/2024 10:45 PM [facility] AST [Catalytic activity/Vol] 25 U/L 10 - 50 U/L [facility] 02-13 22:45 -0400 Aspartate Aminotrans (AST) 25 10 - 50 U/L 02/14/2024 10:45 PM [facility] ALT [Catalytic activity/Vol] 14 U/L 10 - 50 U/L [facility] 02-13 22:45 -0400 Alanine Aminotrans (ALT) 14 10 - 50 U/L 02/14/2024 10:45 PM [facility] Bilirubin [Mass/Vol] 0.2 mg/dL 0.2 - 1.0 mg/dL [facility] 02-13 22:45 -0400 Bilirubin, Total 0.2 0.2 - 1.0 mg/dL 02/14/2024 10:45 PM [facility] Protein [Mass/Vol] 7.8 g/dL 6.3 - 8.3 g/dL [facility] 02-13 22:45 -0400 Protein, Total 7.8 6.3 - 8.3 g/dL 02/14/2024 10:45 PM [facility] Albumin [Mass/Vol] 4.4 g/dL 3.5 - 5.0 g/dL [facility] 02-13 22:45 -0400 Albumin 4.4 3.5 - 5.0 g/dL 02/14/2024 10:45 PM [facility] Globulin Calc (S) [Mass/Vol] 3.4 g/dL 1.5 - 3.9 g/dL [facility] 02-13 22:45 -0400 Globulin 3.4 1.5 - 3.9 g/dL 02/14/2024 10:45 PM [facility] Emergency Department (DEEDS) variableson 02-14-2024 Interpretation and review of laboratory results Abnormal [facility] 02-13 22:17 -0400 Ethanol SerPl-mCncon 024 Ethanol [Mass/Vol] <11 <11 mg/dL [facility] 02-14 01:12 -0400 (L) * FOR MEDICAL PURPOSES ONLY * Ethanol, Bloodon 02-14-2024 Ethanol [Mass/Vol] <11 >NINF mg/dL NINF - 11 mg/dL [facility] 02-14 01:12 -0400 Ethanol, Quantitative, Blood <11 <11 mg/dL 02/15/2024 1:12 AM EDT [facility] Comment on above: * FOR MEDICAL PURPOSES ONLY * Lipaseon 02-14-2024 Lipase [Catalytic activity/Vol] 250 U/L High 13 - 60 U/L [facility] 02-13 22:45 -0400 Lipase 250 (H) 13 - 60 U/L 02/14/2024 10:45 PM EDT [facility] Lipase SerPl-cCncon 02-14-20 Lipase [Catalytic activity/Vol] 250 High 13-60 U/L [facility] 02-13 22:45 -0400 No Panel Informationon 02-13 [facility] 02-13 22:17 -0400 [facility] 02-14 01:12 -0400 [facility] 02-14 03:42 -0400 [facility] 02-14 11:52 -0400 Osmolality, Serum/Plasmaon 1 Osmolality [Osmolality] 289 [facility] 02-14 11:52 -0400 <tr><td>Osmolal ity, Serum/Plasma</t d><td>289</td>< td>275 - 305 mOsm/Kg</td><td ></td><td>02/14 11:52 AM EDT</td><td>[facility]</td><td> </td></tr> 10 Min ECG 12 leadOrdered By : Fly Grayson on 01-13-2024 Ventricular rate 91 BPM [facility] Work Phone: [phone] 08:11 -0400 Ventricular rate 91 BPM EKG [facility] Atrial rate 91 BPM [facility] Work Phone: [phone] 08:11 -0400 Atrial rate 91 BPM EKG [facility] QRS duration 106 ms [facility] Work Phone: [phone] 08:11 -0400 QRS duration 106 ms EKG [facility] QTC calculation (Bazett) 443 ms [facility] Work Phone: [phone] 08:11 -0400 QTC calculation (Bazett) 443 ms EKG [facility] P axis 54 degrees [facility] Work Phone: [phone] 08:11 -0400 P axis 54 degrees EKG [facility] R axis -37 degrees [facility] Work Phone: [phone] 08:11 -0400 R axis -37 degrees EKG [facility] T axis 43 degrees [facility] Work Phone: [phone] 08:11 -0400 T axis 43 degrees EKG [facility] Work Phone: [phone] 01-12 08:11 -0400 10 Min ECG 12 leadon 024 Normal sinus rhythm Possible Left atrial enlargement Left axis deviation Poor R wave progression Abnormal ECG Confirmed by MD Grayson John ([id number]) on 01/13/2024 8:11:03 AM EKG [facility] 01-12 08:11 -0400 Normal sinus rhythm Possible Left atrial enlargement Left axis deviation Poor R wave progression Abnormal ECG Confirmed by MD Grayson John ([id number]) on 01/13/2024 8:11:03 AM Fly Grayson MD - 01/13/2024 Normal sinus rhythm Possible Left atrial enlargement Left axis deviation Poor R wave progression Abnormal ECG Confirmed by MD Grayson John ([id number]) on 01/13/2024 8:11:03 AM [facility] 01-12 08:11 -0400 Fly Grayson MD - 01/13/2024 Normal sinus rhythm Possible Left atrial enlargement Left axis deviation Poor R wave progression Abnormal ECG Confirmed by MD Grayson John ([id number]) on 01/13/2024 8:11:03 AM CBC, with Differentialon WBC Auto (Bld) [#/Vol] 7.6 [facility] 01-12 08:54 -0400 <tr><td>White Blood Cell Count</td><td>7 .6</td><td>4.0 - 11.0 Thou/uL</td><td ></td><td>01/12 8:54 AM EDT</td><td>[facility]</td><t d></td></tr> Platelets Auto (Bld) [#/Vol] 411 [facility] 01-12 08:54 -0400 <tr><td>Platele t Count</td><td>4 11</td><td>150 - 450 Thou/uL</td><td ></td><td>01/12 8:54 AM EDT</td><td>[facility]</td><t d></td></tr> Hemoglobin (Bld) [Mass/Vol] 8.1 Low 11.7-15.7 g/dL [facility] 01-12 08:54 -0400 Hematocrit Auto (Bld) [Volume fraction] 27.6 Low 35.0-47.0 % [facility] 01-12 08:54 -0400 RBC Auto (Bld) [#/Vol] 3.37 Low [facility] 01-12 08:54 -0400 <tr><td>Red Blood Cell Count</td><td>< content>3.37</c ontent><content > (L)</content></ td><td>4.00 - 5.40 Mil/uL</td><td> </td><td>2023 8:54 AM EDT</td><td>[facility]</td><t d></td></tr> MCV Auto (RBC) [Entitic vol] 82 80-100 fL [facility] 01-12 08:54 -0400 MCH Auto (RBC) [Entitic mass] 24.0 Low 26.0-34.0 pg [facility] 01-12 08:54 -0400 MCHC Auto (RBC) [Mass/Vol] 29.3 Low 30.0-36.0 g/dL [facility] 01-12 08:54 -0400 Erythrocyte distribution width Auto (RBC) [Ratio] 17.0 High 11.5-14.5 % [facility] 01-12 08:54 -0400 Platelet mean volume Auto (Bld) [Entitic vol] 9.5 7.5-12.5 fL [facility] 01-12 08:54 -0400 Neutrophils/10 0 WBC Auto (Bld) 62.0 % [facility] 01-12 08:54 -0400 Immature granulocytes/1 00 WBC Auto (Bld) 0.4 % [facility] 01-12 08:54 -0400 Lymphocytes/10 0 WBC Auto (Bld) 24.4 % [facility] 01-12 08:54 -0400 Monocytes/100 WBC Auto (Bld) 7.6 % [facility] 01-12 08:54 -0400 Eosinophils/10 0 WBC Auto (Bld) 4.9 % [facility] 01-12 08:54 -0400 Basophils/100 WBC Auto (Bld) 0.7 % [facility] 01-12 08:54 -0400 Neutrophils Auto (Bld) [#/Vol] 4.71 [facility] 01-12 08:54 -0400 <tr><td>Abs Neutrophils Auto</td><td>4. 71</td><td>2.00 - 7.50 Thou/uL</td><td ></td><td>01/12 8:54 AM EDT</td><td>[facility]</td><t d></td></tr> Immature granulocytes Auto (Bld) [#/Vol] 0.03 [facility] 01-12 08:54 -0400 <tr><td>Abs Immature Granulocytes</t d><td>0.03</td> <td>0.00 - 0.10 Thou/uL</td><td ></td><td>01/12 8:54 AM EDT</td><td>[facility]</td><t d></td></tr> Lymphocytes Auto (Bld) [#/Vol] 1.85 [facility] 01-12 08:54 -0400 <tr><td>Abs Lymphocytes Auto</td><td>1. 85</td><td>1.50 - 4.50 Thou/uL</td><td ></td><td>01/12 8:54 AM EDT</td><td>[facility]</td><t d></td></tr> Monocytes Auto (Bld) [#/Vol] 0.58 [facility] 01-12 08:54 -0400 <tr><td>Abs Monocytes Auto</td><td>0. 58</td><td>0.20 - 1.50 Thou/uL</td><td ></td><td>01/12 8:54 AM EDT</td><td>[facility]</td><t d></td></tr> Eosinophils Auto (Bld) [#/Vol] 0.37 [facility] 01-12 08:54 -0400 <tr><td>Abs Eosinophils Auto</td><td>0. 37</td><td>0.00 - 0.70 Thou/uL</td><td ></td><td>01/12 8:54 AM EDT</td><td>[facility]</td><t d></td></tr> Basophils Auto (Bld) [#/Vol] 0.05 [facility] 01-12 08:54 -0400 <tr><td>Abs Basophils Auto</td><td>0. 05</td><td>0.00 - 0.20 Thou/uL</td><td ></td><td>01/12 8:54 AM EDT</td><td>[facility]</td><t d></td></tr> Complete Blood Count, with D ifferentialon 01-13-2024 Hemoglobin (Bld) [Mass/Vol] 8.1 g/dL Low 11.7 - 15.7 g/dL [facility] 01-12 08:54 -0400 Hemoglobin 8.1 (L) 11.7 - 15.7 g/dL 01/13/2024 8:54 AM [facility] Hematocrit Auto (Bld) [Volume fraction] 27.6 % Low 35.0 - 47.0 % [facility] 01-12 08:54 -0400 Hematocrit 27.6 (L) 35.0 - 47.0 % 01/13/2024 8:54 AM [facility] MCV Auto (RBC) [Entitic vol] 82 fL 80 - 100 fL [facility] 01-12 08:54 -0400 MCV 82 80 - 100 fL 01/13/2024 8:54 AM [facility] MCH Auto (RBC) [Entitic mass] 24.0 pg Low 26.0 - 34.0 pg [facility] 01-12 08:54 -0400 MCH 24.0 (L) 26.0 - 34.0 pg 01/13/2024 8:54 AM [facility] MCHC Auto (RBC) [Mass/Vol] 29.3 g/dL Low 30.0 - 36.0 g/dL [facility] 01-12 08:54 -0400 MCHC 29.3 (L) 30.0 - 36.0 g/dL 01/13/2024 8:54 AM [facility] Erythrocyte distribution width Auto (RBC) [Ratio] 17.0 % High 11.5 - 14.5 % [facility] 01-12 08:54 -0400 RDW 17.0 (H) 11.5 - 14.5 % 01/13/2024 8:54 AM [facility] Platelet mean volume Auto (Bld) [Entitic vol] 9.5 fL 7.5 - 12.5 fL [facility] 01-12 08:54 -0400 MPV 9.5 7.5 - 12.5 fL 01/13/2024 8:54 AM [facility] Neutrophils/10 0 WBC Auto (Bld) 62.0 % [facility] 01-12 08:54 -0400 Neutrophils Auto 62.0 % 01/13/2024 8:54 AM [facility] Immature granulocytes/1 00 WBC Auto (Bld) 0.4 % [facility] 01-12 08:54 -0400 Immature Granulocytes 0.4 % 01/13/2024 8:54 AM [facility] Lymphocytes/10 0 WBC Auto (Bld) 24.4 % [facility] 01-12 08:54 -0400 Lymphocytes Auto 24.4 % 01/13/2024 8:54 AM [facility] Monocytes/100 WBC Auto (Bld) 7.6 % [facility] 01-12 08:54 -0400 Monocytes Auto 7.6 % 01/13/2024 8:54 AM [facility] Eosinophils/10 0 WBC Auto (Bld) 4.9 % [facility] 01-12 08:54 -0400 Eosinophils Auto 4.9 % 01/13/2024 8:54 AM [facility] Basophils/100 WBC Auto (Bld) 0.7 % [facility] 01-12 08:54 -0400 Basophils Auto 0.7 % 01/13/2024 8:54 AM [facility] Interpretation and review of laboratory results Abnormal [facility] 01-12 08:54 -0400 [facility] 01-12 08:54 -0400 [facility] 01-13-2024 Glucose [Mass/Vol] 183 High 65-99 mg/dL [facility] 01-12 09:16 -0400 (L) Fasting: <100 mg/dL, Non-Fasting: <200 mg/dL (ADA 2005) Urea nitrogen [Mass/Vol] 21 8-21 mg/dL [facility] 01-12 09:16 -0400 Creatinine [Mass/Vol] 1.9 High 0.4-1.1 mg/dL [facility] 01-12 09:16 -0400 GFR/1.73 sq M.predicted CKD-EPI (S/P/Bld) [Vol rate/Area] 34 Low 59 - PINF [facility] 01-12 09:16 -0400 <tr><td>eGFR</t d><td><content> 34</content><co ntent> (L)</content></ td><td>>59</td> <td></td><td> 9:16 AM EDT</td><td>[facility]</td><t d></td></tr> Comment on above: CKD-EPI (2020) in mL/min/1.73 sq meters. Sodium [Moles/Vol] 136 136-145 mmol/L [facility] 01-12 09:16 -0400 Potassium [Moles/Vol] 3.7 3.4-5.3 mmol/L [facility] 01-12 09:16 -0400 Chloride [Moles/Vol] 99 98-107 mmol/L [facility] 01-12 09:16 -0400 CO2 [Moles/Vol] 24 22-33 mmol/L [facility] 01-12 09:16 -0400 Calcium [Mass/Vol] 8.9 8.7-10.5 mg/dL [facility] 01-12 09:16 -0400 ALP [Catalytic activity/Vol] 114 32-122 U/L [facility] 01-12 09:16 -0400 AST [Catalytic activity/Vol] 17 10-50 U/L [facility] 01-12 09:16 -0400 ALT [Catalytic activity/Vol] 13 10-50 U/L [facility] 01-12 09:16 -0400 Bilirubin [Mass/Vol] <0.2 Low 0.2-1.0 mg/dL [facility] 01-12 09:16 -0400 Protein [Mass/Vol] 7.7 6.3-8.3 g/dL [facility] 01-12 09:16 -0400 Albumin [Mass/Vol] 4.2 3.5-5.0 g/dL [facility] 01-12 09:16 -0400 Urea nitrogen/Creat inine [Mass ratio] 11 [facility] 01-12 09:16 -0400 <tr><td>BUN/Cre atinine Ratio</td><td>1 1</td><td>10.0 - 25.0 Ratio</td><td>< /td><td> 024 9:16 AM EDT</td><td>[facility]</td><t d></td></tr> Globulin Calc (S) [Mass/Vol] 3.5 1.5-3.9 g/dL [facility] 01-12 09:16 -0400 Albumin/Globul in [Mass ratio] 1.2 [facility] 01-12 09:16 -0400 <tr><td>Albumin /Globulin Ratio</td><td>1 .2</td><td>1.0 - 3.0 Ratio</td><td>< /td><td> 9:16 AM EDT</td><td>[facility]</td><t d></td></tr> Anion gap (Bld) [Moles/Vol] 13 7 - 17 [facility] 01-12 09:16 -0400 <tr><td>Anion Gap</td><td>13< /td><td>7 - 17</td><td></td ><td>01/13/2024 9:16 AM EDT</td><td>[facility]</td><t d></td></tr> Glucose [Mass/Vol] 183 mg/dL High 65 - 99 mg/dL [facility] 01-12 09:16 0400 Glucose 183 (H) 65 - 99 mg/dL 01/13/2024 9:16 AM [facility] Comment on above: Fasting: <100 mg/dL, Non-Fasting: <200 m g/dL (ADA 2005) Urea nitrogen [Mass/Vol] 21 mg/dL 8 - 21 mg/dL [facility] 01-12 09:16 0400 Blood Urea Nitrogen (BUN) 21 8 - 21 mg/dL 01/13/2024 9:16 AM [facility] Creatinine [Mass/Vol] 1.9 mg/dL High 0.4 - 1.1 mg/dL [facility] 01-12 09:16 040 Creatinine 1.9 (H) 0.4 - 1.1 mg/dL 01/13/2024 9:16 AM [facility] Sodium [Moles/Vol] 136 mmol/L 136 - 145 mmol/L [facility] 01-12 09:16 0400 Sodium 136 136 - 145 mmol/L 01/13/2024 9:16 AM [facility] Potassium [Moles/Vol] 3.7 mmol/L 3.4 - 5.3 mmol/L [facility] 01-12 09:16 0400 Potassium 3.7 3.4 - 5.3 mmol/L 01/13/2024 9:16 AM [facility] Chloride [Moles/Vol] 99 mmol/L 98 - 107 mmol/L [facility] 01-12 09:16 0400 Chloride 99 98 - 107 mmol/L 01/13/2024 9:16 AM [facility] CO2 [Moles/Vol] 24 mmol/L 22 - 33 mmol/L [facility] 01-12 09:16 0400 CO2 24 22 - 33 mmol/L 01/13/2024 9:16 AM [facility] Calcium [Mass/Vol] 8.9 mg/dL 8.7 - 10.5 mg/dL [facility] 01-12 09:16 0400 Calcium 8.9 8.7 - 10.5 mg/dL 01/13/2024 9:16 AM [facility] ALP [Catalytic activity/Vol] 114 U/L 32 - 122 U/L [facility] 01-12 09:16 -0400 Alkaline Phosphatase 114 32 - 122 U/L 01/13/2024 9:16 AM [facility] AST [Catalytic activity/Vol] 17 U/L 10 - 50 U/L [facility] 01-12 09:16 -0400 Aspartate Aminotrans (AST) 17 10 - 50 U/L 01/13/2024 9:16 AM [facility] ALT [Catalytic activity/Vol] 13 U/L 10 - 50 U/L [facility] 01-12 09:16 -0400 Alanine Aminotrans (ALT) 13 10 - 50 U/L 01/13/2024 9:16 AM [facility] Bilirubin [Mass/Vol] <0.2 >NINF mg/dL Low 0.2 - 1.0 mg/dL [facility] 01-12 09:16 -0400 Bilirubin, Total <0.2 (L) 0.2 - 1.0 mg/dL 01/13/2024 9:16 AM [facility] Protein [Mass/Vol] 7.7 g/dL 6.3 - 8.3 g/dL [facility] 01-12 09:16 -0400 Protein, Total 7.7 6.3 - 8.3 g/dL 01/13/2024 9:16 AM [facility] Albumin [Mass/Vol] 4.2 g/dL 3.5 - 5.0 g/dL [facility] 01-12 09:16 0400 Albumin 4.2 3.5 - 5.0 g/dL 01/13/2024 9:16 AM [facility] Globulin Calc (S) [Mass/Vol] 3.5 g/dL 1.5 - 3.9 g/dL [facility] 01-12 09:16 0400 Globulin 3.5 1.5 - 3.9 g/dL 01/13/2024 9:16 AM [facility] POC Glucoseon 01-13-2024 Glucose [Mass/Vol] 234 mg/dL High 65-99 mg/dL [facility] 01-12 03:05 -0400 POCT Glucose, Fingerstickon 01-13-2024 Glucose (Bld) [Mass/Vol] 234 mg/dL High 65 - 99 mg/dL [facility] 01-12 03:05 -0400 POC Glucose 234 (H) 65 - 99 mg/dL 01/13/2024 3:05 AM EDT Interpretation and review of laboratory results Abnormal [facility] 01-12 03:05 -0400 [facility] 01-12 03:05 -0400 No Panel Information REG ADDL ENC CATEGORY 1 (PVISIT) : [id number]~( SOT) SEXUAL ORIENTATION: Choose not to disclose~(PCPN OTIFY) REG ADDL ENC CATEGORY 1: Yes-notify [facility] SEXUAL ORIENTATION (PVISIT) : [id number]~( SOT) SEXUAL ORIENTATION: Choose not to disclose [facility] APPT STATUS (PVISIT) : [id number]~( SOT) SEXUAL ORIENTATION: Choose not to disclose~(APPT _STATUS) APPT STATUS: 6 [facility] (PVISIT) : [id number] [facility] REG ADDL ENC CATEGORY 1 (PVISIT) : [id number]~( SOT) SEXUAL ORIENTATION: Choose not to disclose~(PCPN OTIFY) REG ADDL ENC CATEGORY 1: Yes-notify [facility] Social History Date Type Detail Facility Start: 01-13-2024 Gender identity Identifies as female gender (finding) [facility] Start: 01-13-2024 Sexual orientation Choose not to dis close [facility] Start: 12-20-2019 End: 02-15-2024 Alcohol intake Current drinker of alcohol (finding) [facility] Start: 12-20-2019 End: 02-15-2024 History of Social function [facility] Work Phone: Start: 12-20-2019 End: 02-15-2024 Tobacco use panel [facility] Work Phone: Start: 12-14-2019 Tobacco smoking stat us NHIS Never smoked tobacco [facility] Start: 12-14-2019 Tobacco use and exposure Smoke less tobacco non-user [facility] Start: 12-14-2019 Alcohol Comment very rarely on ly on special occasions as per pt [facility] Start: 1985 Sex Assigned At Female H Formerly [facility] How often to you hav e a drink containing alcohol? Never [facility] Work Phone: How many standard dr inks containing alcohol do you have on a typical day? Patient does not drink [facility] Vital Signs Date Time Vital Sign Value Performing Clinician Facility 02-15-2024 20:22-0400 Body temperature 94.5 [degF] Oral Deleon MD Work Phone: [facility] 02-15-2024 20:22-0400 BP (Blood pressure) 151/93mm[Hg] Oral Deleon MD Work Phone: [facility] 02-15-2024 20:22-0400 Heart rate 93 /min Oral Deleon MD Work Phone: [facility] 02-15-2024 20:22-0400 Respiratory rate 20 /min Oral Deleon MD Work Phone: [facility] 02-15-2024 20:22-0400 SaO2% (BldA) [Mass fraction] 100 % Oral Deleon MD Work Phone: [facility] 02-15-2024 15:01-0400 Body mass index (BMI) [Ratio] 27.05 kg/m2 Oral Deleon MD Work Phone: [facility] 02-15-2024 15:01-0400 Body weight 80.7 kg Oral Deleon MD Work Phone: [facility] 01-13-2024 08:22-0400 Body temperature 98.2 [degF] Opal Hernandez MD Work Phone: [facility] 01-13-2024 08:22-0400 BP (Blood pressure) 120/71mm[Hg] Opal Hernandez MD Work Phone: [facility] 01-13-2024 08:22-0400 Heart rate 83 /min Opal Hernandez MD Work Phone: [facility] 01-13-2024 08:22-0400 Respiratory rate 18 /min Opal Hernandez MD Work Phone: [facility] 01-13-2024 08:22-0400 SaO2% (BldA) [Mass fraction] 100 % Opal Hernandez MD Work Phone: [facility] Clinical Notes 12-29-2019 to 02-16-2024 Plan of Care - Phyllis Franco RN - 02/15/2024 8:32 PM EDTPlan of Care - Phyllis Franco RN - 02/15/2024 8:32 PM [facility] - Dominic Verdugo APRN - 02/15/2024 8:26 PM EDT Note Date & Type Note Facility 02-16-2024 Special Events Assistant Authentication Interface Message Text I personally saw the patient and performed a substantive portion of the visit including all aspects of the medical decision-making. I reviewed the AP's or resident's findings, supervised the management of the patient, made/approved the management plan and take responsibility for the patient management. Further, I agree with the controlled substance prescriptions(s) and/or order(s) as written by the AP, if any. My note reflects my personal findings on my history and exam. ABRAN Owen is a 38 y.o. female who presents for evaluation of nausea, vomiting, and abdominal pain. Patient has a history of diabetes, CKD, gastroparesis. Reports symptoms over the past 5 days, unable to keep anything down today. Physical Exam General: Appears uncomfortable, moaning. HEENT: Normocephalic, atraumatic, OP clear, moist mucous membranes CV: RRR no murmurs Resp: Clear bilaterally Abd: soft, not distended, tender over epigastrium and left upper quadrant Extr: atraumatic, no edema Diagnostics Labs Reviewed COMPLETE BLOOD COUNT, WITH DIFFERENTIAL - Abnormal; Notable for the following components: Result Value Hemoglobin 8.5 (*) Hematocrit 27.9 (*) Red Blood Cell Count 3.57 (*) MCV 78 (*) MCH 23.8 (*) RDW 17.8 (*) All other components within normal limits COMPREHENSIVE METABOLIC PANEL - Abnormal; Notable for the following components: Glucose 209 (*) Blood Urea Nitrogen (BUN) 33 (*) Creatinine 2.6 (*) eGFR 23 (*) Sodium 134 (*) Chloride 93 (*) Anion Gap 18 (*) All other components within normal limits LIPASE - Abnormal; Notable for the following components: Lipase 250 (*) All other components within normal limits URINALYSIS W/ REFLEX TO MICROSCOPIC AND CULTURE - Abnormal; Notable for the following components: Protein Small (30 mg/dL) (*) Hyaline Casts 11 (*) All other components within normal limits HEMOGLOBIN A1C WITH ESTIMATED AVERAGE GLUCOSE - Abnormal; Notable for the following components: Hemoglobin A1C 6.2 (*) All other components within normal limits BASIC METABOLIC PANEL - Abnormal; Notable for the following components: Glucose 188 (*) Blood Urea Nitrogen (BUN) 30 (*) Creatinine 2.3 (*) eGFR 27 (*) Chloride 96 (*) All other components within normal limits POCT GLUCOSE, FINGERSTICK - Abnormal; Notable for the following components: POC Glucose 118 (*) All other components within normal limits POCT GLUCOSE, FINGERSTICK - Abnormal; Notable for the following components: POC Glucose 173 (*) All other components within normal limits POCT GLUCOSE, FINGERSTICK - Abnormal; Notable for the following components: POC Glucose 117 (*) All other components within normal limits POCT GLUCOSE, FINGERSTICK - Abnormal; Notable for the following components: POC Glucose 132 (*) All other components within normal limits POCT , URINE (CHARGE) - Normal ETHANOL, BLOOD OSMOLALITY, URINE CREATININE, URINE, RANDOM SODIUM, URINE, RANDOM B-HYDROXYBUTYRATE OSMOLALITY POCT GLUCOSE, FINGERSTICK CT Abdomen+pelvis w/o contrast MDM Patient presenting with 5 days of nausea, vomiting, and abdominal pain. Plan symptomatic treatment with droperidol, IV fluids, admission due to JONNY. 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 Allergies Allergen Reactions Morphine Rash/Dermatitis Admission Date: 02/14/2024 Admitting Provider: Jaimie Billings MD Discharge Provider: Osvaldo Parks MD Discharge Date: 02/16/2024 Primary Care Physician at Discharge: NOE Zuluaga 02/16/2024 OUTPATIENT TEAM Patient Care Team: NOE Mendoza as PCP - General PRIMARY DISCHARGE DIAGNOSIS Primary Discharge Diagnosis Principal Problem: JONNY (acute kidney injury) (HCC) (POA: Yes) Active Problems: Epigastric pain (POA: Yes) Resolved Problems: DISCHARGE DISPOSITION Home Or Self Care Code Status Procedures Full Code Order Specific Question: Decision Thoroughly Discussed with Answer: Patient . MEDICATIONS AT TIME OF ADMISSION No current facility-administered medications on file prior to encounter. Current Outpatient Medications on File Prior to Encounter Medication Sig traZODone (DESYREL) 50 MG tablet Take 0.5-1 tablets (25-50 mg total) by mouth nightly as needed. dicyclomine (BENTYL) 10 MG capsule Take 1 capsule (10 mg total) by mouth 3 (three) times a day. (Patient not taking: Reported on 02/15/2024) folic acid (FOLVITE) 1 MG tablet Take 1 tablet (1 mg total) by mouth daily. Do not start before December 21, 2019. (Patient not taking: Reported on 02/15/2024) gabapentin (NEURONTIN) 100 MG capsule Take 1 capsule (100 mg total) by mouth daily. Do not start before December 21, 2019. (Patient not taking: Reported on 02/15/2024) hydrOXYzine HCl (ATARAX) 25 MG tablet Take 1-2 mg by mouth daily as needed for anxiety. (Patient not taking: Reported on 02/15/2024) insulin glargine (LANtus) 100 units/mL injection Inject 0.03 mL (3 Units total) under the skin nightly. (Patient taking differently: Inject 0.22 mL (22 Units total) under the skin nightly.) insulin lispro (HumaLOG KWIKPEN) 100 UNIT/ML prefilled pen injection Inject 3-4 Units under the skin 3 (three) times a day before meals. Per sliding scale. multivitamin with minerals Tab tablet Take 1 tablet by mouth daily. Do not start before December 21, 2019. PANTOprazole (PROTONIX) 40 MG EC tablet Take 1 tablet (40 mg total) by mouth 2 (two) times a day. (Patient not taking: Reported on 02/15/2024) thiamine (VITAMIN B-1) 100 MG tablet Take 2 tablets (200 mg total) by mouth daily. (Patient not taking: Reported on 02/15/2024) MEDICATIONS CHANGED Discharge Medication List as of 02/16/2024 4:24 AM MEDICATIONS DISCONTINUED (OR A NEW SCRIPT WRITTEN) Discharge Medication List as of 02/16/2024 4:24 AM DISCHARGE MEDICATIONS Discharge Medications Unreviewed Medications Sig dicyclomine 10 MG capsule Commonly known as: BENTYL Take 1 capsule (10 mg total) by mouth 3 (three) times a day. Quantity: 90 capsule folic acid 1 MG tablet Commonly known as: FOLVITE Take 1 tablet (1 mg total) by mouth daily. Do not start before December 21, 2019. Quantity: 30 tablet gabapentin 100 MG capsule Commonly known as: NEURONTIN Take 1 capsule (100 mg total) by mouth daily. Do not start before December 21, 2019. Quantity: 30 capsule hydrOXYzine HCl 25 MG tablet Commonly known as: ATARAX Take 1-2 mg by mouth daily as needed for anxiety. insulin glargine 100 units/mL injection Commonly known as: LANtus/SEMGLEE Inject 0.03 mL (3 Units total) under the skin nightly. insulin lispro 100 UNIT/ML prefilled pen injection Commonly known as: HumaLOG ANANDA Ask about: Which instructions should I use? Inject 3-4 Units under the skin 3 (three) times a day before meals. Per sliding scale. multivitamin with minerals Tabs tablet Take 1 tablet by mouth daily. Do not start before December 21, 2019. Quantity: 30 tablet PANTOprazole 40 MG EC tablet Commonly known as: PROTONIX Take 1 tablet (40 mg total) by mouth 2 (two) times a day. Quantity: 60 tablet thiamine mononitrate 100 MG tablet Commonly known as: VITAMIN B-1 Take 2 tablets (200 mg total) by mouth daily. Quantity: 60 tablet traZODone 50 MG tablet Commonly known as: DESYREL Take 0.5-1 tablets (25-50 mg total) by mouth nightly as needed. DISCHARGE INSTRUCTIONS No discharge procedures on file. FOLLOW UP No future appointments. ACTIVE ISSUES FOR FOLLOW UP Please see discharge instructions and radiological and hematological tests below for follow up. 1) Follow up with GI INCIDENTAL FINDINGS Incidental hospital findings:none PENDING TEST RESULTS DISCHARGE DAY NOTE Patient was seen and examined by me on earlier on the day of discharge. Was feeling better. Unfortunately left AMA overnight. Discharge Condition: stable Last Vitals: Pulse:93,Resp:20,BP:(!) 151/93,SpO2:100 %,Weight: 80.7 kg (177 lb 14.6 oz) Temp Last 24 hrs: No data recorded DETAILS OF HOSPITAL STAY History of Present Illness (from the H&P) 38-year-old male female patient with past medical history of type 1 diabetes, CKD stage III, chronic anemia, diabetic gastroparesis, anxiety, status post gastric stimulator 9 years ago. Presented to emergency department today with 5 days history of left upper quadrant pain, nausea, vomiting, loose stools, decreased oral intake. Patient denies any fever, no chills, no chest pain, no shortness of breath, no syncope, no gross bleeding, no urinary symptoms. Non-smoker, no alcohol, no drug use. In the ER, stable vitals, CBC without leukocytosis, creatinine 2.6, EKG reviewed with normal sinus rhythm, QTc 482. Ordered LR 1 L fluid, droperidol for nausea and vomiting. -I saw patient myself in the ER, oriented x 4, no chest pain, noted significant left upper quadrant tenderness, left CVA tenderness. Hospital Course Patient was started on IVF and symptomatic treatment with antiemetics. GI team was also consulted. Unfortunately she left the same day she came to the ED AMA. Consults: Consults placed: Procedures Inpatient consult to Gastroenterology ( [facility], ) Procedures: Diagnostic Studies: CT Abdomen+pelvis w/o contrast Result Date: 02/15/2024 EXAMINATION: CT ABDOMEN AND PELVIS WITHOUT CONTRAST CLINICAL INFORMATION: Left upper quadrant pain radiating to left flank, evaluation for kidney stones, pyonephritis. Pancreatitis. COMPARISON: CT abdomen and pelvis 12/29/2019 TECHNIQUE: Multidetector volumetric imaging was performed from the lung bases through the pubic symphysis. Sagittal and coronal reformatted images were obtained on the technologist workstation. This CT examination was performed using dose optimization techniques as appropriate, variously including the following: *Automated exposure control *Adjustment of mA and/or kV according to patient size (this includes techniques or standardized protocols for targeted exams where dose is matched to indication/reason for exam; i.e. extremities or head) *Use of iterative reconstruction technique Total exam dose-length product 269 mGy-cm. FINDINGS: VISUALIZED CHEST: Normal. LIVER: Normal size, contours, and attenuation. No focal lesion. GALLBLADDER: Normal. PANCREAS: Normal. SPLEEN: Normal. ADRENAL GLANDS: Normal. KIDNEYS: Normal renal parenchyma. No hydronephrosis. No calculi. BLADDER: Normal. GASTROINTESTINAL TRACT: Stomach nondistended. Normal small bowel. Normal colon. Normal appendix. No bowel obstruction. PERITONEUM: No free fluid. ABDOMINAL WALL/SOFT TISSUES: Gastric stimulator in the left abdominal wall. No hernia. LYMPHOVASCULAR: No abdominopelvic lymphadenopathy. Normal caliber aorta. No atherosclerosis. PELVIC VISCERA: Normal. OSSEOUS: No acute or suspicious osseous findings. No acute findings. Interpreted by: Jose Self MD Web Architect I personally reviewed the images and the resident's preliminary report and AGREE with the report as it is now presented ([id number]). Echocardiogram NA Results from last 7 days Lab Units 02/14/24 2148 WHITE BLOOD CELL COUNT Thou/uL 7.7 HEMOGLOBIN g/dL 8.5* HEMATOCRIT % 27.9* PLATELET COUNT Thou/uL 406 NEUTROS PCT % 62.8 LYMPHS PCT % 26.3 MONOS PCT % 7.7 EOS PCT % 2.1 BASOS PCT % 0.8 Results from last 7 days Lab Units 02/15/247 02/15/24 1640 02/15/24 1139 02/15/24 0720 02/15/24 0638 02/15/24 0320 02/14/24 2148 SODIUM mmol/L -- -- -- -- 136 -- 134* POTASSIUM mmol/L -- -- -- -- 3.4 -- 3.4 CHLORIDE mmol/L -- -- -- -- 96* -- 93* CO2 mmol/L -- -- -- -- 27 -- 23 BUN mg/dL -- -- -- -- 30* -- 33* CREATININE mg/dL -- -- -- -- 2.3* -- 2.6* CALCIUM mg/dL -- -- -- -- 8.9 -- 9.0 GLUCOSE mg/dL -- -- -- -- 188* -- 209* GLUCOSE, POC mg/dL 132* 117* 93 < > -- < > -- EGFR -- -- -- -- 27* -- 23* ALBUMIN g/dL -- -- -- -- -- -- 4.4 PROTEIN, TOTAL g/dL -- -- -- -- -- -- 7.8 BILIRUBIN TOTAL mg/dL -- -- -- -- -- -- 0.2 ALK PHOS U/L -- -- -- -- -- -- 115 ALT U/L -- -- -- -- -- -- 14 AST U/L -- -- -- -- -- -- 25 < > = values in this interval not displayed. Lab Results Component Value Date ALT 14 02/14/2024 AST 25 02/14/2024 ALKPHOS 115 02/14/2024 BILITOT 0.2 02/14/2024 Lab Results Component Value Date TNI Blood Cultures: No results found for: SOURCE , SREQ , CULTURE , STATUS Urine Cultures: Lab Results Component Value Date HYALNCSTUA 11 (H) 02/15/2024 UROBILINOGEN Specimen unsuitable for analysis. 12/14/2019 BILIUA Negative 02/15/2024 BLOODUA Negative 02/15/2024 CLARITYUA Slightly cloudy 02/15/2024 COLORUA Yellow 02/15/2024 KETONESUA Negative 02/15/2024 LEUKOCYTESUA Negative 02/15/2024 NITRITEUA Negative 02/15/2024 PHUA 5.0 02/15/2024 PROTEINUA Small (30 mg/dL) (A) 02/15/2024 RBCUA 2 02/15/2024 SPECIMEN Clean Catch 12/14/2019 SPECGRAVUA 1.018 02/15/2024 SQEPIUA 5 02/15/2024 WBCUA 1 02/15/2024 C. Difficile: No results found for: CDIFFTOX , NAP1 TIME SPENT FOR DISCHARGE Patient not seen at the time of discharge. Osvaldo Parks MD 02/19/2024 9:49 AM [facility] 02-15-2024 Plan of care note Assumed care 1099 - 2029. Pt A&O x4. VSS on RA. Pt c/o bilateral flank pain. Given PRN pain medication. Pt wanted to leave AMA d/t prn pain meds not being enough. Pt spoke to the provider and was educated on the risks of leaving but still decided to leave AMA. Paper work signed IV removed. Safety maintained. Phyllis Franco 02/15/2024 8:32 PM [facility] 02-15-2024 Miscellaneous Notes Assumed care 1099 - 2029. Pt A&O x4. VSS on RA. Pt c/o bilateral flank pain. Given PRN pain medication. Pt wanted to leave AMA d/t prn pain meds not being enough. Pt spoke to the provider and was educated on the risks of leaving but still decided to leave AMA. Paper work signed IV removed. Safety maintained. Phyllis Franco 02/15/2024 8:32 PM Patient seen at bedside to discuss pain management. She complained about not seeing her attending since been on the unit. Spoke to her and offered to increase pain medicine to control her pain at bedside overnight. She insist on leaving because she feels like she will do better at home. AMA paperwork sign. PIV taken out be primary RN. Per State of [place] General Statutes Sec: [id number]: Notification of determination communicated within 2 business days of receipt of all information necessary to complete the review. Please fax authorization determination to [phone] or call [phone]. [facility] Admission Note Type: (Inpt/Obsv): Inpatient Date of Admission: 02/15/2024 Admitting Dx: JONNY (acute kidney injury) (HCC) [N17.9] PMH: Past Medical History: Diagnosis Date Anxiety Diabetes mellitus (HCC) Gastroparesis Renal disorder HPI: 38-year-old male female patient with past medical history of type 1 diabetes, CKD stage III, chronic anemia, diabetic gastroparesis, anxiety, status post gastric stimulator 9 years ago. Presented to emergency department today with 5 days history of left upper quadrant pain, nausea, vomiting, loose stools, decreased oral intake. -Patient denies any fever, no chills, no chest pain, no shortness of breath, no syncope, no gross bleeding, no urinary symptoms. Non-smoker, no alcohol, no drug use. In the ER, stable vitals, CBC without leukocytosis, creatinine 2.6, EKG reviewed with normal sinus rhythm, QTc 482. Ordered LR 1 L fluid, droperidol for nausea and vomiting. -I saw patient myself in the ER, oriented x 4, no chest pain, noted significant left upper quadrant tenderness, left CVA tenderness. Vitals: Vitals: 02/14/24 2134 02/15/24 0139 02/15/24 0449 02/15/24 0732 BP: 121/82 121/77 (!) 98/50 131/80 Pulse: 92 84 73 83 Resp: 16 16 16 20 Temp: 98.3 ?F (36.8 ?C) (!) 95.8 ?F (35.4 ?C) SpO2: 98% 99% 97% 98% 02/15/24 1055 02/15/24 1342 02/15/24 1502 BP: 136/81 130/77 129/75 Pulse: 77 80 85 Resp: 20 20 20 Temp: (!) 95.1 ?F (35.1 ?C) SpO2: 99% 97% 100% Labs/Diagnostics: Latest Reference Range & Units 02/14/24 21:48 Red Blood Cell Count 4.00 - 5.40 Mil/uL 3.57 (L) Hemoglobin 11.7 - 15.7 g/dL 8.5 (L) Hematocrit 35.0 - 47.0 % 27.9 (L) MCV 80 - 100 fL 78 (L) MCH 26.0 - 34.0 pg 23.8 (L) MCHC 30.0 - 36.0 g/dL 30.5 RDW 11.5 - 14.5 % 17.8 (H) Platelet Count 150 - 450 Thou/uL 406 MPV 7.5 - 12.5 fL 9.5 Neutrophils Auto % 62.8 Abs Neutrophils Auto 2.00 - 7.50 Thou/uL 4.85 Immature Granulocytes % 0.3 Abs Immature Granulocytes 0.00 - 0.10 Thou/uL 0.02 Lymphocytes Auto % 26.3 Abs Lymphocytes Auto 1.50 - 4.50 Thou/uL 2.03 Monocytes Auto % 7.7 Abs Monocytes Auto 0.20 - 1.50 Thou/uL 0.59 Eosinophils Auto % 2.1 Abs Eosinophils Auto 0.00 - 0.70 Thou/uL 0.16 Basophils Auto % 0.8 Abs Basophils Auto 0.00 - 0.20 Thou/uL 0.06 Sodium 136 - 145 mmol/L 134 (L) Potassium 3.4 - 5.3 mmol/L 3.4 Chloride 98 - 107 mmol/L 93 (L) CO2, POC 22 - 33 mmol/L 23 Anion Gap 7 - 17 18 (H) BUN 8 - 21 mg/dL 33 (H) Creatinine 0.4 - 1.1 mg/dL 2.6 (H) Bun / Creat Ratio 10.0 - 25.0 Ratio 13 Glucose 65 - 99 mg/dL 209 (H) Calcium 8.7 - 10.5 mg/dL 9.0 Protein, Total 6.3 - 8.3 g/dL 7.8 Albumin 3.5 - 5.0 g/dL 4.4 Globulin 1.5 - 3.9 g/dL 3.4 A/G Ratio 1.0 - 3.0 Ratio 1.3 eGFR >59 23 (L) Bilirubin Total 0.2 - 1.0 mg/dL 0.2 Aspartate Aminotrans (AST/SGOT) 10 - 50 U/L 25 Alanine Aminotrans (ALT) 10 - 50 U/L 14 Alkaline Phosphatase 32 - 122 U/L 115 B-Hydroxybutyrate <0.28 mmol/L 0.12 Lipase 13 - 60 U/L 250 (H) (L): Data is abnormally low (H): Data is abnormally high Latest Reference Range & Units 02/15/24 06:38 Chloride 98 - 107 mmol/L 96 (L) CO2, POC 22 - 33 mmol/L 27 Anion Gap 7 - 17 13 BUN 8 - 21 mg/dL 30 (H) Creatinine 0.4 - 1.1 mg/dL 2.3 (H) Bun / Creat Ratio 10.0 - 25.0 Ratio 13 Glucose 65 - 99 mg/dL 188 (H) Calcium 8.7 - 10.5 mg/dL 8.9 eGFR >59 27 (L) (L): Data is abnormally low (H): Data is abnormally high Orders/Treatment Plan: # JONNY on top of CKD (creatinine 2.6 up from 1.9) Most likely prerenal etiology given nausea, vomiting, and loose stool, dehydration , patient looks dry on exam -38-year-old male female patient with past medical history of type 1 diabetes, CKD stage III, chronic anemia, diabetic gastroparesis, anxiety, status post gastric stimulator 9 years ago. Presented to emergency department today with 5 days history of left upper quadrant pain, nausea, vomiting, loose stools, decreased oral intake. Plan Admit patient to medical floor IV fluids Avoid nephrotoxic medications As needed antiemetics Daily BMP Strict MELANY's Follow-up on UA, urine creatinine, urine sodium, urine osmolality, serum osmolality, bladder scan, to decide on JONNY management. # Abdominal pain Left upper quadrant pain, epigastric pain, radiating to left loin. Associated with nausea, vomiting, loose stool. No gross bleeding Significant tenderness left upper quadrant and left CVA tenderness Lipase 250 Differential diagnosis includes diabetic gastroparesis episode, pancreatitis, pyelonephritis, kidney stones therefore I ordered CT abdomen. Less likely DKA since patient bicarb 23 and glucose is 209. Ordered with hydroxybutyrate to be followed up on. As needed analgesics As needed antiemetics IV fluids Resume home medication Will start patient on clear liquid diet for now and advance diet as tolerated # Type 1 diabetes Patient on Lantus insulin 22 units at night [according to patient], she is also on sliding scale Since seeping patient on clear liquid diet for now I will start patient on Lantus insulin 15 units at night in addition to sliding scale. CODE STATUS: full code HCP/Decision maker: Patient Medications: Medications Scheduled Medication Ordered Dose/Rate, Route, Frequency Last Action dicyclomine (BENTYL) capsule 10 mg 10 mg, PO, TID Given, 10 mg at 02/14 1416 folic acid (FOLVITE) tablet 1 mg 1 mg, PO, Daily Given, 1 mg at 02/14 0735 gabapentin (NEURONTIN) capsule 100 mg 100 mg, PO, Daily Given, 100 mg at 02/14 0735 insulin glargine (LANtus/SEMGLEE) 100 units/mL injection 15 Units 15 Units, SC, Nightly Ordered insulin lispro (HumaLOG/ADMELOG) 100 units/mL injection 1-4 Units 1-4 Units, SC, NIGHTLY & 2AM Ordered insulin lispro (HumaLOG/ADMELOG) 100 units/mL injection 1-6 Units 1-6 Units, SC, TID with meals Given, 1 Units at 02/14 0739 PANTOprazole (PROTONIX) EC tablet 40 mg 40 mg, PO, BID Given, 40 mg at 02/14 0735 thiamine mononitrate (VITAMIN B-1) tablet 200 mg 200 mg, PO, Daily Given, 200 mg at 02/14 0735 Continuous Medication Ordered Dose/Rate, Route, Frequency Last Action lactated ringers (LR) infusion 75 mL/hr, 75 mL/hr, IV, Continuous New Bag, 75 mL/hr, 75 mL/hr at 02/14 0517 PRN Medication Ordered Dose/Rate, Route, Frequency Last Action acetaminophen (TYLENOL) tablet 975 mg 975 mg, PO, Q6H PRN Ordered dextrose 50 % solution 12.5 g (Or Linked Group #1) 12.5 g, IV, Q15 Min PRN Ordered dextrose 50 % solution 25 g (Or Linked Group #1) 25 g, IV, Q15 Min PRN Ordered glucagon (GLUCAGEN) injection 1 mg (Or Linked Group #1) 1 mg, IM, Daily PRN Ordered glucose (GLUTOSE 15) 40 % oral gel 37.5 g (Or Linked Group #1) 1 Tube, PO, Q15 Min PRN Ordered glucose (GLUTOSE 15) 40 % oral gel 75 g (Or Linked Group #1) 2 Tube, PO, Q15 Min PRN Ordered HYDROmorphone (DILAUDID) injection 0.2 mg 0.2 mg, IV, Q4H PRN Given, 0.2 mg at 02/14 1519 hydrOXYzine HCl (ATARAX) tablet 10 mg 10 mg, PO, Q6H PRN Ordered ondansetron (ZOFRAN) injection 4 mg 4 mg, IV, Q6H PRN Given, 4 mg at 02/14 0819 Bed Type: Medicine general Kaela Jacobs RN 02/15/2024 3:31 PM Summer Owen is a 38-year-old female with past medical history of type 1 diabetes, CKD 3, marijuana use and gastroparesis who presented to the hospital with symptoms of left sided chest and upper quadrant pain along with intractable nausea and vomiting. Patient seen at bedside today. States that she is feeling well and her nausea is much better now. - Requested GI consult. Appreciate recommendations - Will advance her diet now and stop IV fluids - Check ultrasound of abdomen - Continue to adjust insulin regimen based on blood glucose level HPI: 38 female history of CKD 3 baseline creatinine 1.5, IDDM, diabetic gastroparesis with gastric stimulator here with several days of left upper quadrant abdominal pain radiating to left flank nausea vomiting loose stools Vital signs reviewed Constitutional:Mental status alert and appropriate ENT:Patient speaking in normal voice, handling secretions without problems. Musculoskeletal:No obvious deformities, moves all extremities. MDM: History obtained from other source: EMS Testing or Treatment considered but not performed: Additional testing and/or treatment considered but not performed in FEP area, will defer to patient's primary ED provider. documented in this encounter [facility] 02-15-2024 Plan of care note Patient seen at bedside to discuss pain management. She complained about not seeing her attending since been on the unit. Spoke to her and offered to increase pain medicine to control her pain at bedside overnight. She insist on leaving because she feels like she will do better at home. AMA paperwork sign. PIV taken out be primary RN. [facility] Work Phone: 02-15-2024 web development manager Note Per State of [place] General Statutes Sec: [id number]: Notification of determination communicated within 2 business days of receipt of all information necessary to complete the review. Please fax authorization determination to [phone] or call [phone]. [employer] Work Phone: 02-15-2024 web development manager Note [facility] Admission Note Type: (Inpt/Obsv): Inpatient Date of Admission: 02/15/2024 Admitting Dx: JONNY (acute kidney injury) (HCC) [N17.9] PMH: Past Medical History: Diagnosis Date Anxiety Diabetes mellitus (HCC) Gastroparesis Renal disorder HPI: 38-year-old male female patient with past medical history of type 1 diabetes, CKD stage III, chronic anemia, diabetic gastroparesis, anxiety, status post gastric stimulator 9 years ago. Presented to emergency department today with 5 days history of left upper quadrant pain, nausea, vomiting, loose stools, decreased oral intake. -Patient denies any fever, no chills, no chest pain, no shortness of breath, no syncope, no gross bleeding, no urinary symptoms. Non-smoker, no alcohol, no drug use. In the ER, stable vitals, CBC without leukocytosis, creatinine 2.6, EKG reviewed with normal sinus rhythm, QTc 482. Ordered LR 1 L fluid, droperidol for nausea and vomiting. -I saw patient myself in the ER, oriented x 4, no chest pain, noted significant left upper quadrant tenderness, left CVA tenderness. Vitals: Vitals: 02/14/24 2134 02/15/24 0139 02/15/24 0449 02/15/24 0732 BP: 121/82 121/77 (!) 98/50 131/80 Pulse: 92 84 73 83 Resp: 16 16 16 20 Temp: 98.3 ?F (36.8 ?C) (!) 95.8 ?F (35.4 ?C) SpO2: 98% 99% 97% 98% 02/15/24 1055 02/15/24 1342 02/15/24 1502 BP: 136/81 130/77 129/75 Pulse: 77 80 85 Resp: 20 20 20 Temp: (!) 95.1 ?F (35.1 ?C) SpO2: 99% 97% 100% Labs/Diagnostics: Latest Reference Range & Units 02/14/24 21:48 Red Blood Cell Count 4.00 - 5.40 Mil/uL 3.57 (L) Hemoglobin 11.7 - 15.7 g/dL 8.5 (L) Hematocrit 35.0 - 47.0 % 27.9 (L) MCV 80 - 100 fL 78 (L) MCH 26.0 - 34.0 pg 23.8 (L) MCHC 30.0 - 36.0 g/dL 30.5 RDW 11.5 - 14.5 % 17.8 (H) Platelet Count 150 - 450 Thou/uL 406 MPV 7.5 - 12.5 fL 9.5 Neutrophils Auto % 62.8 Abs Neutrophils Auto 2.00 - 7.50 Thou/uL 4.85 Immature Granulocytes % 0.3 Abs Immature Granulocytes 0.00 - 0.10 Thou/uL 0.02 Lymphocytes Auto % 26.3 Abs Lymphocytes Auto 1.50 - 4.50 Thou/uL 2.03 Monocytes Auto % 7.7 Abs Monocytes Auto 0.20 - 1.50 Thou/uL 0.59 Eosinophils Auto % 2.1 Abs Eosinophils Auto 0.00 - 0.70 Thou/uL 0.16 Basophils Auto % 0.8 Abs Basophils Auto 0.00 - 0.20 Thou/uL 0.06 Sodium 136 - 145 mmol/L 134 (L) Potassium 3.4 - 5.3 mmol/L 3.4 Chloride 98 - 107 mmol/L 93 (L) CO2, POC 22 - 33 mmol/L 23 Anion Gap 7 - 17 18 (H) BUN 8 - 21 mg/dL 33 (H) Creatinine 0.4 - 1.1 mg/dL 2.6 (H) Bun / Creat Ratio 10.0 - 25.0 Ratio 13 Glucose 65 - 99 mg/dL 209 (H) Calcium 8.7 - 10.5 mg/dL 9.0 Protein, Total 6.3 - 8.3 g/dL 7.8 Albumin 3.5 - 5.0 g/dL 4.4 Globulin 1.5 - 3.9 g/dL 3.4 A/G Ratio 1.0 - 3.0 Ratio 1.3 eGFR >59 23 (L) Bilirubin Total 0.2 - 1.0 mg/dL 0.2 Aspartate Aminotrans (AST/SGOT) 10 - 50 U/L 25 Alanine Aminotrans (ALT) 10 - 50 U/L 14 Alkaline Phosphatase 32 - 122 U/L 115 B-Hydroxybutyrate Lipase 13 - 60 U/L 250 (H) (L): Data is abnormally low (H): Data is abnormally high Latest Reference Range & Units 02/15/24 06:38 Chloride 98 - 107 mmol/L 96 (L) CO2, POC 22 - 33 mmol/L 27 Anion Gap 7 - 17 13 BUN 8 - 21 mg/dL 30 (H) Creatinine 0.4 - 1.1 mg/dL 2.3 (H) Bun / Creat Ratio 10.0 - 25.0 Ratio 13 Glucose 65 - 99 mg/dL 188 (H) Calcium 8.7 - 10.5 mg/dL 8.9 eGFR >59 27 (L) (L): Data is abnormally low (H): Data is abnormally high Orders/Treatment Plan: # JONNY on top of CKD (creatinine 2.6 up from 1.9) Most likely prerenal etiology given nausea, vomiting, and loose stool, dehydration , patient looks dry on exam -38-year-old male female patient with past medical history of type 1 diabetes, CKD stage III, chronic anemia, diabetic gastroparesis, anxiety, status post gastric stimulator 9 years ago. Presented to emergency department today with 5 days history of left upper quadrant pain, nausea, vomiting, loose stools, decreased oral intake. Plan Admit patient to medical floor IV fluids Avoid nephrotoxic medications As needed antiemetics Daily BMP Strict MELANY's Follow-up on UA, urine creatinine, urine sodium, urine osmolality, serum osmolality, bladder scan, to decide on JONNY management. # Abdominal pain Left upper quadrant pain, epigastric pain, radiating to left loin. Associated with nausea, vomiting, loose stool. No gross bleeding Significant tenderness left upper quadrant and left CVA tenderness Lipase 250 Differential diagnosis includes diabetic gastroparesis episode, pancreatitis, pyelonephritis, kidney stones therefore I ordered CT abdomen. Less likely DKA since patient bicarb 23 and glucose is 209. Ordered with hydroxybutyrate to be followed up on. As needed analgesics As needed antiemetics IV fluids Resume home medication Will start patient on clear liquid diet for now and advance diet as tolerated # Type 1 diabetes Patient on Lantus insulin 22 units at night [according to patient], she is also on sliding scale Since seeping patient on clear liquid diet for now I will start patient on Lantus insulin 15 units at night in addition to sliding scale. CODE STATUS: full code HCP/Decision maker: Patient Medications: Medications Scheduled Medication Ordered Dose/Rate, Route, Frequency Last Action dicyclomine (BENTYL) capsule 10 mg 10 mg, PO, TID Given, 10 mg at 02/14 1416 folic acid (FOLVITE) tablet 1 mg 1 mg, PO, Daily Given, 1 mg at 02/14 735 gabapentin (NEURONTIN) capsule 100 mg 100 mg, PO, Daily Given, 100 mg at 02/14 735 insulin glargine (LANtus/SEMGLEE) 100 units/mL injection 15 Units 15 Units, SC, Nightly Ordered insulin lispro (HumaLOG/ADMELOG) 100 units/mL injection 1-4 Units 1-4 Units, SC, NIGHTLY & 2AM Ordered insulin lispro (HumaLOG/ADMELOG) 100 units/mL injection 1-6 Units 1-6 Units, SC, TID with meals Given, 1 Units at 02/14 0739 PANTOprazole (PROTONIX) EC tablet 40 mg 40 mg, PO, BID Given, 40 mg at 02/14 735 thiamine mononitrate (VITAMIN B-1) tablet 200 mg 200 mg, PO, Daily Given, 200 mg at 02/14 735 Continuous Medication Ordered Dose/Rate, Route, Frequency Last Action lactated ringers (LR) infusion 75 mL/hr, 75 mL/hr, IV, Continuous New Bag, 75 mL/hr, 75 mL/hr at 02/14 0517 PRN Medication Ordered Dose/Rate, Route, Frequency Last Action acetaminophen (TYLENOL) tablet 975 mg 975 mg, PO, Q6H PRN Ordered dextrose 50 % solution 12.5 g (Or Linked Group #1) 12.5 g, IV, Q15 Min PRN Ordered dextrose 50 % solution 25 g (Or Linked Group #1) 25 g, IV, Q15 Min PRN Ordered glucagon (GLUCAGEN) injection 1 mg (Or Linked Group #1) 1 mg, IM, Daily PRN Ordered glucose (GLUTOSE 15) 40 % oral gel 37.5 g (Or Linked Group #1) 1 Tube, PO, Q15 Min PRN Ordered glucose (GLUTOSE 15) 40 % oral gel 75 g (Or Linked Group #1) 2 Tube, PO, Q15 Min PRN Ordered HYDROmorphone (DILAUDID) injection 0.2 mg 0.2 mg, IV, Q4H PRN Given, 0.2 mg at 02/14 1519 hydrOXYzine HCl (ATARAX) tablet 10 mg 10 mg, PO, Q6H PRN Ordered ondansetron (ZOFRAN) injection 4 mg 4 mg, IV, Q6H PRN Given, 4 mg at 02/14 0827 Bed Type: Medicine general Kaela Jacobs RN 02/15/2024 3:31 PM [facility] Work Phone: 02-15-2024 Note 132 [facility] P-R interval 132 ms EKG [facility] 02-15-2024 Note 420 [facility] Q-T interval 420 ms EKG [facility] 02-15-2024 Plan of care note Summer Owen is a 38-year-old female with past medical history of type 1 diabetes, CKD 3, marijuana use and gastroparesis who presented to the hospital with symptoms of left sided chest and upper quadrant pain along with intractable nausea and vomiting. Patient seen at bedside today. States that she is feeling well and her nausea is much better now. - Requested GI consult. Appreciate recommendations - Will advance her diet now and stop IV fluids - Check ultrasound of abdomen - Continue to adjust insulin regimen based on blood glucose level [facility] Work Phone: 02-15-2024 Emergency department Note Pt endorsing abd pain and some nausea, medicated per JUL, ambulatory at bedside, set up w/ clear liquid for PO, plan for provider recs and symptom control Brody Velasquez RN 02/15/24 1202 T [facility] Work Phone: 02-15-2024 Special Events Assistant Authentication Interface Message Text Pt endorsing abd pain and some nausea, medicated per MAR, ambulatory at bedside, set up w/ clear liquid for PO, plan for provider recs and symptom control Brody Velasquez RN 02/15/24 1202 [facility] 02-15-2024 Emergency department Note Pt endorsing abd pain and some nausea, medicated per MAR, ambulatory at bedside, set up w/ clear liquid for PO, plan for provider recs and symptom control Brody Velasquez RN 02/15/24 1202 documented in this encounter [facility] 02-15-2024 Consult note Associated Order (s): IP CONSULT TO GASTROENTEROLOGY Gastroenterology and Hepatology Fellow Consult Note Admit Date: 02/14/2024 9:38 PM Date of Consult: 02/15/2024 Patient's Primary Care Physician: NOE Zuluaga Physician Requesting Consult: Dr. Parks Reason for Consultation: Gastroparesis with abdominal pain, intractable vomiting Name: Summer Owen Age: 38 y.o. Sex: female Assessment & Plan Assessment 38 year old female with DM1, CKD stage III, chronic RODERICK likely due to heavy menstrual periods, diabetic gastroparesis status post gastric stimulator 9 years ago, anxiety, who presented to the ED for nausea, vomiting, abdominal pain x5 days. Her symptoms are likely due to multifactorial etiology although thankfully she is improving rapidly. She likely has a component of cannabinoid hyperemesis syndrome, supported by symptom improvement with hot showers and significant improvement of symptoms with droperidol overnight. She has a known diagnosis of gastroparesis. She also may have had a transient infectious insult as her symptoms began after eating food at the [employer]. Finally, she does appear to have mild pancreatitis (classic abd pain with elevated lipase) although pancreas appears normal on imaging. It is possible that she was surreptitiously consuming alcohol. Acute on Chronic Abdominal pain Acute on Chronic Nausea, Vomiting (resolved) Chronic Gastroparesis s/p gastric electrical stimulator placement 9y ago Chronic RODERICK JONNY on CKD3 Mild pancreatitis, 2nd episode, unclear etiology Recommendations Antiemetics Advance diet as tolerated to low residue Small frequent meals Glycemic control Marijuana cessation Check PEth Check abdominal ultrasound Check triglycerides IVF LR while PO intake is low (1.5cc/kg/hr) Outpatient EUS Thank you for allowing us to take part in the care of this patient [facility]orie [facility] Gastroenterology and Hepatology Fellow, PGY-6 02/15/24 Subjective 38 year old female with DM1, CKD stage III, chronic RODERICK, diabetic gastroparesis status post gastric stimulator 9 years ago, anxiety, who presented to the ED for nausea, vomiting, abdominal pain x5 days. Patient went to the [employer] on Thursday 02/08 and ate a turkey leg. Then, at 2 or 3 AM on Friday 02/09 she developed persistent nausea and vomiting with left upper quadrant pain radiating to her back and some chest discomfort. She waited a few days to see if her symptoms would self resolve. She undulates her body to help alleviate her symptoms. Hot showers also help alleviate her symptoms. She was also lying at home listening to [employer] music. Unfortunately her symptoms persisted which prompted her to go to the ED yesterday 02/14/2024. She received droperidol 1.25 mg IV overnight around 1 AM, and 2 doses of 0.5 mg IV Dilaudid. She was requesting more pain medication if she was due for it. She also received 4 mg IV Zofran this morning around 8:30 AM which improved her nausea. She has not vomited since yesterday and her left upper quadrant pain is improved. She smokes marijuana chronically for at least the past 4 years. She smokes 1 joint of marijuana every few days. No additional edible consumption. She felt a bit feverish previously. Her weight has been stable. She has not had a prior colonoscopy. She denied EtOH. She said her iron deficiency anemia is due to heavy menstrual periods. She was previously on iron supplementation but not currently taking it. Last bowel movement was 2 days ago. Her loose stools completely resolved. UA unremarkable, 11 hyaline casts, small protein, no infection. A1c 6.2 Bicarb 27 Lipase 250 Hgb 8.5, at baseline Imaging CTAP noncontrast today 02/15/2024 - normal pancreas, largely unremarkable CTAP 12/29/2019 - normal pancreas, largely unremarkable CTAP 12/18/2019 - normal pancreas, largely unremarkable Prior Endoscopic Procedures EGD 12/19/2019 for abdominal pain: - Normal duodenal bulb and second portion of the duodenum. - Normal stomach. - Undigested pill seen. - Normal esophagus. - No specimens collected. Past Medical History: Past Surgical History: Past Medical History: Diagnosis Date Anxiety Diabetes mellitus (HCC) Gastroparesis Renal disorder Past Surgical History: Procedure Laterality Date BELOW KNEE LEG AMPUTATION ENDOSCOPY UPPER N/A 12/19/2019 Procedure: ENDOSCOPY UPPER; Surgeon: Malorie Block MD; Location: GI Endoscopy; Service: Gastroenterology; Laterality: N/A; GASTRIC STIMULATOR IMPLANT SURGERY Family / Social History: Family History Problem Relation Age of Onset Diabetes Mother Diabetes Sister Social History Socioeconomic History Marital status: Single Spouse name: Not on file Number of children: Not on file Years of education: Not on file Highest education level: Not on file Occupational History Not on file Tobacco Use Smoking status: Never Smokeless tobacco: Never Substance and Sexual Activity Alcohol use: Yes Comment: very rarely only on special occasions as per pt Drug use: Never Sexual activity: Not on file Other Topics Concern Not on file Social History Narrative Not on file Social Determinants of Health Financial Resource Strain: Not on file Food Insecurity: Not on file Transportation Needs: Not on file Physical Activity: Not on file Stress: Not on file Social Connections: Not on file Housing Stability: Not on file Allergies: Allergies Allergen Reactions Morphine Rash/Dermatitis Scheduled Medications: dicyclomine, 10 mg, Oral, TID folic acid, 1 mg, Oral, Daily gabapentin, 100 mg, Oral, Daily insulin glargine, 15 Units, Subcutaneous, Nightly insulin lispro, 1-4 Units, Subcutaneous, NIGHTLY & 2AM insulin lispro, 1-6 Units, Subcutaneous, TID with meals PANTOprazole, 40 mg, Oral, BID thiamine mononitrate, 200 mg, Oral, Daily (Not in a hospital admission) Relevant Lab Data Lab Results Component Value Date WBC 7.7 02/14/2024 HGB 8.5 (L) 02/14/2024 HGB 8.1 (L) 01/13/2024 HGB 8.3 (L) 12/31/2019 MCV 78 (L) 02/14/2024 RETIC 1.3 12/19/2019 RETICABS 35.4 12/19/2019 PLT 406 02/14/2024 NA 136 02/15/2024 BUN 30 (H) 02/15/2024 CREAT 2.3 (H) 02/15/2024 CREAT 2.6 (H) 02/14/2024 CREAT 1.9 (H) 01/13/2024 CO2 27 02/15/2024 ALBUMIN 4.4 02/14/2024 IRON 30 (L) 12/19/2019 TIBC 281 12/19/2019 FERRITIN 14 (L) 12/14/2019 FOLATE >20.0 12/19/2019 Lab Results Component Value Date AST 25 02/14/2024 AST 17 01/13/2024 ALT 14 02/14/2024 ALT 13 01/13/2024 ALKPHOS 115 02/14/2024 ALKPHOS 114 01/13/2024 BILITOT 0.2 02/14/2024 BILITOT BILIDIR BILIDIR Lab Results Component Value Date LIPASE 250 (H) 02/14/2024 HGBA1C 6.2 (H) 02/15/2024 CHOL 161 12/14/2019 ESTLDL 77 12/14/2019 HDL 63 12/14/2019 TRIG 106 12/14/2019 Lab Results Component Value Date TSH 0.70 12/19/2019 CALCIUM 8.9 02/15/2024 ALBUMIN 4.4 02/14/2024 K 3.4 02/15/2024 MG 1.9 12/30/2019 Lab Results Component Value Date FERRITIN 14 (L) 12/14/2019 Objective Physical Exam Temp: [95.8 ?F (35.4 ?C)-98.3 ?F (36.8 ?C)] 95.8 ?F (35.4 ?C) Pulse: [73-92] 77 Resp: [16-20] 20 BP: (98-136)/(50-82) 136/81 Physical Exam Constitutional: General: She is not in acute distress. Comments: She appeared fairly comfortable HENT: Head: Normocephalic. Eyes: Extraocular Movements: Extraocular movements intact. Cardiovascular: Rate and Rhythm: Normal rate. Pulmonary: Effort: Pulmonary effort is normal. No respiratory distress. Abdominal: General: Bowel sounds are normal. There is no distension. Palpations: Abdomen is soft. Tenderness: There is no guarding or rebound. Comments: Mild LUQ TTP. Musculoskeletal: General: No swelling. Skin: Coloration: Skin is not jaundiced. Neurological: General: No focal deficit present. Mental Status: She is alert and oriented to person, place, and time. Psychiatric: Mood and Affect: Mood normal. Will be discussed with GI/Hepatology Service Attending Associated attestation - Ailyn Ortega MD - 02/15/2024 8:05 PM EDT Attending Attestation I have personally seen and examined patient. I agree with HPI, A&P outlined above by Dr. Owen. Briefly, Summer Owen is a 38 y.o. year old female with history of DM type I, CKD, heavy menses and RODERICK, known gastroparesis. We are asked to see her for presentation to ER HH for n/v and abdominal pains. Contributing factors may include cannabis use. Pts symptoms have improved after dose of droperidol in ER. On examination, pertinent findings include abd soft with no rebound or guarding. Review on labs and imaging was done and shows: see below Impression: acute on chronic n/v and abdominal pain in pt with longstanding type I dm and chronic gastroparesis with gastric pacer for 9 years. No radiographic pancreatitis with mild lipase elevation. Plan: supportive care Low residue diet with small frequent meals Await transabdominal ultrasound Thank you for letting me participate in the care of your patient. If you have any questions or concerns, please don't hesitate to contact me at any time. Ailyn Ortega MD 02/15/2024 7:57 PM [facility] Work Phone: 02-15-2024 Special Events Assistant Authentication Interface Message Text Gastroenterology and Hepatology Fellow Consult Note Admit Date: 02/14/2024 9:38 PM Date of Consult: 02/15/2024 Patient's Primary Care Physician: NOE Zuluaga Physician Requesting Consult: Dr. Parks Reason for Consultation: Gastroparesis with abdominal pain, intractable vomiting and hematemesis Name: Summer Owen Age: 38 y.o. Sex: female Assessment & Plan Assessment 38 year old female with DM1, CKD stage III, chronic RODERICK likely due to heavy menstrual periods, diabetic gastroparesis status post gastric stimulator 9 years ago, anxiety, who presented to the ED for nausea, vomiting, abdominal pain x5 days. Her symptoms are likely due to multifactorial etiology although thankfully she is improving rapidly. She likely has a component of cannabinoid hyperemesis syndrome, supported by symptom improvement with hot showers and significant improvement of symptoms with droperidol overnight. She has a known diagnosis of gastroparesis. She also may have had a transient infectious insult as her symptoms began after eating food at the [employer]. Finally, she does appear to have mild pancreatitis (classic abd pain with elevated lipase) although pancreas appears normal on imaging. It is possible that she was surreptitiously consuming alcohol. Acute on Chronic Abdominal pain Acute on Chronic Nausea, Vomiting (resolved) Chronic Gastroparesis s/p gastric electrical stimulator placement 9y ago Chronic RODERICK JONNY on CKD3 Mild pancreatitis, 2nd episode, unclear etiology Recommendations Advance diet as tolerated to low residue Small frequent meals Glycemic control Marijuana cessation Check PEth Check abdominal ultrasound Check triglycerides IVF LR while PO intake is low (1.5cc/kg/hr) Outpatient EUS Thank you for allowing us to take part in the care of this patient [facility] Gastroenterology and Hepatology Fellow, PGY-6 02/15/24 Subjective 38 year old female with DM1, CKD stage III, chronic RODERICK, diabetic gastroparesis status post gastric stimulator 9 years ago, anxiety, who presented to the ED for nausea, vomiting, abdominal pain x5 days. Patient went to the [employer] on Thursday 02/08 and ate a turkey leg. Then, at 2 or 3 AM on Friday 02/09 she developed persistent nausea and vomiting with left upper quadrant pain radiating to her back and some chest discomfort. She waited a few days to see if her symptoms would self resolve. She undulates her body to help alleviate her symptoms. Hot showers also help alleviate her symptoms. She was also lying at home listening to [employer] music. Unfortunately her symptoms persisted which prompted her to go to the ED yesterday 02/14/2024. She received droperidol 1.25 mg IV overnight around 1 AM, and 2 doses of 0.5 mg IV Dilaudid. She was requesting more pain medication if she was due for it. She also received 4 mg IV Zofran this morning around 8:30 AM which improved her nausea. She has not vomited since yesterday and her left upper quadrant pain is improved. She smokes marijuana chronically for at least the past 4 years. She smokes 1 joint of marijuana every few days. No additional edible consumption. She felt a bit feverish previously. Her weight has been stable. She has not had a prior colonoscopy. She said her iron deficiency anemia is due to heavy menstrual periods. She was previously on iron supplementation but not currently taking it. Last bowel movement was 2 days ago. Her loose stools completely resolved. UA unremarkable, 11 hyaline casts, small protein, no infection. A1c 6.2 Bicarb 27 Lipase 250 Hgb 8.5, at baseline Imaging CTAP noncontrast today 02/15/2024 - normal pancreas, largely unremarkable CTAP 12/29/2019 - normal pancreas, largely unremarkable CTAP 12/18/2019 - normal pancreas, largely unremarkable Prior Endoscopic Procedures EGD 12/19/2019 for abdominal pain: - Normal duodenal bulb and second portion of the duodenum. - Normal stomach. - Undigested pill seen. - Normal esophagus. - No specimens collected. Past Medical History: Past Surgical History: Past Medical History: Diagnosis Date Anxiety Diabetes mellitus (HCC) Gastroparesis Renal disorder Past Surgical History: Procedure Laterality Date BELOW KNEE LEG AMPUTATION ENDOSCOPY UPPER N/A 12/19/2019 Procedure: ENDOSCOPY UPPER; Surgeon: Malorie Block MD; Location: GI Endoscopy; Service: Gastroenterology; Laterality: N/A; GASTRIC STIMULATOR IMPLANT SURGERY Family / Social History: Family History Problem Relation Age of Onset Diabetes Mother Diabetes Sister Social History Socioeconomic History Marital status: Single Spouse name: Not on file Number of children: Not on file Years of education: Not on file Highest education level: Not on file Occupational History Not on file Tobacco Use Smoking status: Never Smokeless tobacco: Never Substance and Sexual Activity Alcohol use: Yes Comment: very rarely only on special occasions as per pt Drug use: Never Sexual activity: Not on file Other Topics Concern Not on file Social History Narrative Not on file Social Determinants of Health Financial Resource Strain: Not on file Food Insecurity: Not on file Transportation Needs: Not on file Physical Activity: Not on file Stress: Not on file Social Connections: Not on file Housing Stability: Not on file Allergies: Allergies Allergen Reactions Morphine Rash/Dermatitis Scheduled Medications: dicyclomine, 10 mg, Oral, TID folic acid, 1 mg, Oral, Daily gabapentin, 100 mg, Oral, Daily insulin glargine, 15 Units, Subcutaneous, Nightly insulin lispro, 1-4 Units, Subcutaneous, NIGHTLY & 2AM insulin lispro, 1-6 Units, Subcutaneous, TID with meals PANTOprazole, 40 mg, Oral, BID thiamine mononitrate, 200 mg, Oral, Daily (Not in a hospital admission) Relevant Lab Data Lab Results Component Value Date WBC 7.7 02/14/2024 HGB 8.5 (L) 02/14/2024 HGB 8.1 (L) 01/13/2024 HGB 8.3 (L) 12/31/2019 MCV 78 (L) 02/14/2024 RETIC 1.3 12/19/2019 RETICABS 35.4 12/19/2019 PLT 406 02/14/2024 NA 136 02/15/2024 BUN 30 (H) 02/15/2024 CREAT 2.3 (H) 02/15/2024 CREAT 2.6 (H) 02/14/2024 CREAT 1.9 (H) 01/13/2024 CO2 27 02/15/2024 ALBUMIN 4.4 02/14/2024 IRON 30 (L) 12/19/2019 TIBC 281 12/19/2019 FERRITIN 14 (L) 12/14/2019 FOLATE >20.0 12/19/2019 Lab Results Component Value Date AST 25 02/14/2024 AST 17 01/13/2024 ALT 14 02/14/2024 ALT 13 01/13/2024 ALKPHOS 115 02/14/2024 ALKPHOS 114 01/13/2024 BILITOT 0.2 02/14/2024 BILITOT BILIDIR BILIDIR Lab Results Component Value Date LIPASE 250 (H) 02/14/2024 HGBA1C 6.2 (H) 02/15/2024 CHOL 161 12/14/2019 ESTLDL 77 12/14/2019 HDL 63 12/14/2019 TRIG 106 12/14/2019 Lab Results Component Value Date TSH 0.70 12/19/2019 CALCIUM 8.9 02/15/2024 ALBUMIN 4.4 02/14/2024 K 3.4 02/15/2024 MG 1.9 12/30/2019 Lab Results Component Value Date FERRITIN 14 (L) 12/14/2019 Objective Physical Exam Temp: [95.8 ?F (35.4 ?C)-98.3 ?F (36.8 ?C)] 95.8 ?F (35.4 ?C) Pulse: [73-92] 77 Resp: [16-20] 20 BP: (98-136)/(50-82) 136/81 Physical Exam Constitutional: General: She is not in acute distress. Comments: She appeared fairly comfortable HENT: Head: Normocephalic. Eyes: Extraocular Movements: Extraocular movements intact. Cardiovascular: Rate and Rhythm: Normal rate. Pulmonary: Effort: Pulmonary effort is normal. No respiratory distress. Abdominal: General: Bowel sounds are normal. There is no distension. Palpations: Abdomen is soft. Tenderness: There is no guarding or rebound. Comments: Mild LUQ TTP. Musculoskeletal: General: No swelling. Skin: Coloration: Skin is not jaundiced. Neurological: General: No focal deficit present. Mental Status: She is alert and oriented to person, place, and time. Psychiatric: Mood and Affect: Mood normal. Will be discussed with GI/Hepatology Service Attending [facility] 02-15-2024 Special Events Assistant Authentication Interface Message Text Gastroenterology and Hepatology Fellow Consult Note Admit Date: 02/14/2024 9:38 PM Date of Consult: 02/15/2024 Patient's Primary Care Physician: NOE Zuluaga Physician Requesting Consult: Dr. Parks Reason for Consultation: Gastroparesis with abdominal pain, intractable vomiting and hematemesis Name: Summer Owen Age: 38 y.o. Sex: female Assessment & Plan Assessment 38 year old female with DM1, CKD stage III, chronic RODERICK likely due to heavy menstrual periods, diabetic gastroparesis status post gastric stimulator 9 years ago, anxiety, who presented to the ED for nausea, vomiting, abdominal pain x5 days. Her symptoms are likely due to multifactorial etiology although thankfully she is improving rapidly. She likely has a component of cannabinoid hyperemesis syndrome, supported by symptom improvement with hot showers and significant improvement of symptoms with droperidol overnight. She has a known diagnosis of gastroparesis. She also may have had a transient infectious insult as her symptoms began after eating food at the [employer]. Finally, she does appear to have mild pancreatitis (classic abd pain with elevated lipase) although pancreas appears normal on imaging. It is possible that she was surreptitiously consuming alcohol. Acute on Chronic Abdominal pain Acute on Chronic Nausea, Vomiting (resolved) Chronic Gastroparesis s/p gastric electrical stimulator placement 9y ago Chronic RODERICK JONNY on CKD3 Mild pancreatitis, 2nd episode, unclear etiology Recommendations Advance diet as tolerated to low residue Small frequent meals Glycemic control Marijuana cessation Check PEth Check abdominal ultrasound Check triglycerides IVF LR while PO intake is low (1.5cc/kg/hr) Outpatient EUS Thank you for allowing us to take part in the care of this patient Malorie [facility]son[facility] Gastroenterology and Hepatology Fellow, PGY-6 02/15/24 Subjective 38 year old female with DM1, CKD stage III, chronic RODERICK, diabetic gastroparesis status post gastric stimulator 9 years ago, anxiety, who presented to the ED for nausea, vomiting, abdominal pain x5 days. Patient went to the [employer] on Thursday 02/08 and ate a turkey leg. Then, at 2 or 3 AM on Friday 02/09 she developed persistent nausea and vomiting with left upper quadrant pain radiating to her back and some chest discomfort. She waited a few days to see if her symptoms would self resolve. She undulates her body to help alleviate her symptoms. Hot showers also help alleviate her symptoms. She was also lying at home listening to [employer] music. Unfortunately her symptoms persisted which prompted her to go to the ED yesterday 02/14/2024. She received droperidol 1.25 mg IV overnight around 1 AM, and 2 doses of 0.5 mg IV Dilaudid. She was requesting more pain medication if she was due for it. She also received 4 mg IV Zofran this morning around 8:30 AM which improved her nausea. She has not vomited since yesterday and her left upper quadrant pain is improved. She smokes marijuana chronically for at least the past 4 years. She smokes 1 joint of marijuana every few days. No additional edible consumption. She felt a bit feverish previously. Her weight has been stable. She has not had a prior colonoscopy. She denied EtOH. She said her iron deficiency anemia is due to heavy menstrual periods. She was previously on iron supplementation but not currently taking it. Last bowel movement was 2 days ago. Her loose stools completely resolved. UA unremarkable, 11 hyaline casts, small protein, no infection. A1c 6.2 Bicarb 27 Lipase 250 Hgb 8.5, at baseline Imaging CTAP noncontrast today 02/15/2024 - normal pancreas, largely unremarkable CTAP 12/29/2019 - normal pancreas, largely unremarkable CTAP 12/18/2019 - normal pancreas, largely unremarkable Prior Endoscopic Procedures EGD 12/19/2019 for abdominal pain: - Normal duodenal bulb and second portion of the duodenum. - Normal stomach. - Undigested pill seen. - Normal esophagus. - No specimens collected. Past Medical History: Past Surgical History: Past Medical History: Diagnosis Date Anxiety Diabetes mellitus (HCC) Gastroparesis Renal disorder Past Surgical History: Procedure Laterality Date BELOW KNEE LEG AMPUTATION ENDOSCOPY UPPER N/A 12/19/2019 Procedure: ENDOSCOPY UPPER; Surgeon: Malorie Block MD; Location: GI Endoscopy; Service: Gastroenterology; Laterality: N/A; GASTRIC STIMULATOR IMPLANT SURGERY Family / Social History: Family History Problem Relation Age of Onset Diabetes Mother Diabetes Sister Social History Socioeconomic History Marital status: Single Spouse name: Not on file Number of children: Not on file Years of education: Not on file Highest education level: Not on file Occupational History Not on file Tobacco Use Smoking status: Never Smokeless tobacco: Never Substance and Sexual Activity Alcohol use: Yes Comment: very rarely only on special occasions as per pt Drug use: Never Sexual activity: Not on file Other Topics Concern Not on file Social History Narrative Not on file Social Determinants of Health Financial Resource Strain: Not on file Food Insecurity: Not on file Transportation Needs: Not on file Physical Activity: Not on file Stress: Not on file Social Connections: Not on file Housing Stability: Not on file Allergies: Allergies Allergen Reactions Morphine Rash/Dermatitis Scheduled Medications: dicyclomine, 10 mg, Oral, TID folic acid, 1 mg, Oral, Daily gabapentin, 100 mg, Oral, Daily insulin glargine, 15 Units, Subcutaneous, Nightly insulin lispro, 1-4 Units, Subcutaneous, NIGHTLY & 2AM insulin lispro, 1-6 Units, Subcutaneous, TID with meals PANTOprazole, 40 mg, Oral, BID thiamine mononitrate, 200 mg, Oral, Daily (Not in a hospital admission) Relevant Lab Data Lab Results Component Value Date WBC 7.7 02/14/2024 HGB 8.5 (L) 02/14/2024 HGB 8.1 (L) 01/13/2024 HGB 8.3 (L) 12/31/2019 MCV 78 (L) 02/14/2024 RETIC 1.3 12/19/2019 RETICABS 35.4 12/19/2019 PLT 406 02/14/2024 NA 136 02/15/2024 BUN 30 (H) 02/15/2024 CREAT 2.3 (H) 02/15/2024 CREAT 2.6 (H) 02/14/2024 CREAT 1.9 (H) 01/13/2024 CO2 27 02/15/2024 ALBUMIN 4.4 02/14/2024 IRON 30 (L) 12/19/2019 TIBC 281 12/19/2019 FERRITIN 14 (L) 12/14/2019 FOLATE >20.0 12/19/2019 Lab Results Component Value Date AST 25 02/14/2024 AST 17 01/13/2024 ALT 14 02/14/2024 ALT 13 01/13/2024 ALKPHOS 115 02/14/2024 ALKPHOS 114 01/13/2024 BILITOT 0.2 02/14/2024 BILITOT BILIDIR BILIDIR Lab Results Component Value Date LIPASE 250 (H) 02/14/2024 HGBA1C 6.2 (H) 02/15/2024 CHOL 161 12/14/2019 ESTLDL 77 12/14/2019 HDL 63 12/14/2019 TRIG 106 12/14/2019 Lab Results Component Value Date TSH 0.70 12/19/2019 CALCIUM 8.9 02/15/2024 ALBUMIN 4.4 02/14/2024 K 3.4 02/15/2024 MG 1.9 12/30/2019 Lab Results Component Value Date FERRITIN 14 (L) 12/14/2019 Objective Physical Exam Temp: [95.8 ?F (35.4 ?C)-98.3 ?F (36.8 ?C)] 95.8 ?F (35.4 ?C) Pulse: [73-92] 77 Resp: [16-20] 20 BP: (98-136)/(50-82) 136/81 Physical Exam Constitutional: General: She is not in acute distress. Comments: She appeared fairly comfortable HENT: Head: Normocephalic. Eyes: Extraocular Movements: Extraocular movements intact. Cardiovascular: Rate and Rhythm: Normal rate. Pulmonary: Effort: Pulmonary effort is normal. No respiratory distress. Abdominal: General: Bowel sounds are normal. There is no distension. Palpations: Abdomen is soft. Tenderness: There is no guarding or rebound. Comments: Mild LUQ TTP. Musculoskeletal: General: No swelling. Skin: Coloration: Skin is not jaundiced. Neurological: General: No focal deficit present. Mental Status: She is alert and oriented to person, place, and time. Psychiatric: Mood and Affect: Mood normal. Will be discussed with GI/Hepatology Service Attending [facility] 02-15-2024 Special Events Assistant Authentication Interface Message Text Gastroenterology and Hepatology Fellow Consult Note Admit Date: 02/14/2024 9:38 PM Date of Consult: 02/15/2024 Patient's Primary Care Physician: NOE Zuluaga Physician Requesting Consult: Dr. Parks Reason for Consultation: Gastroparesis with abdominal pain, intractable vomiting Name: Summer Owen Age: 38 y.o. Sex: female Assessment & Plan Assessment 38 year old female with DM1, CKD stage III, chronic RODERICK likely due to heavy menstrual periods, diabetic gastroparesis status post gastric stimulator 9 years ago, anxiety, who presented to the ED for nausea, vomiting, abdominal pain x5 days. Her symptoms are likely due to multifactorial etiology although thankfully she is improving rapidly. She likely has a component of cannabinoid hyperemesis syndrome, supported by symptom improvement with hot showers and significant improvement of symptoms with droperidol overnight. She has a known diagnosis of gastroparesis. She also may have had a transient infectious insult as her symptoms began after eating food at the [employer]. Finally, she does appear to have mild pancreatitis (classic abd pain with elevated lipase) although pancreas appears normal on imaging. It is possible that she was surreptitiously consuming alcohol. Acute on Chronic Abdominal pain Acute on Chronic Nausea, Vomiting (resolved) Chronic Gastroparesis s/p gastric electrical stimulator placement 9y ago Chronic RODERICK JONNY on CKD3 Mild pancreatitis, 2nd episode, unclear etiology Recommendations Antiemetics Advance diet as tolerated to low residue Small frequent meals Glycemic control Marijuana cessation Check PEth Check abdominal ultrasound Check triglycerides IVF LR while PO intake is low (1.5cc/kg/hr) Outpatient [facility] Thank you for allowing us to take part in the care of this patient Malorie Alonzo [facility] Gastroenterology and Hepatology Fellow, PGY-6 02/15/24 Subjective 38 year old female with DM1, CKD stage III, chronic RODERICK, diabetic gastroparesis status post gastric stimulator 9 years ago, anxiety, who presented to the ED for nausea, vomiting, abdominal pain x5 days. Patient went to the [employer] on Thursday 02/08 and ate a turkey leg. Then, at 2 or 3 AM on Friday 02/09 she developed persistent nausea and vomiting with left upper quadrant pain radiating to her back and some chest discomfort. She waited a few days to see if her symptoms would self resolve. She undulates her body to help alleviate her symptoms. Hot showers also help alleviate her symptoms. She was also lying at home listening to [employer] music. Unfortunately her symptoms persisted which prompted her to go to the ED yesterday 02/14/2024. She received droperidol 1.25 mg IV overnight around 1 AM, and 2 doses of 0.5 mg IV Dilaudid. She was requesting more pain medication if she was due for it. She also received 4 mg IV Zofran this morning around 8:30 AM which improved her nausea. She has not vomited since yesterday and her left upper quadrant pain is improved. She smokes marijuana chronically for at least the past 4 years. She smokes 1 joint of marijuana every few days. No additional edible consumption. She felt a bit feverish previously. Her weight has been stable. She has not had a prior colonoscopy. She denied EtOH. She said her iron deficiency anemia is due to heavy menstrual periods. She was previously on iron supplementation but not currently taking it. Last bowel movement was 2 days ago. Her loose stools completely resolved. UA unremarkable, 11 hyaline casts, small protein, no infection. A1c 6.2 Bicarb 27 Lipase 250 Hgb 8.5, at baseline Imaging CTAP noncontrast today 02/15/2024 - normal pancreas, largely unremarkable CTAP 12/29/2019 - normal pancreas, largely unremarkable CTAP 12/18/2019 - normal pancreas, largely unremarkable Prior Endoscopic Procedures EGD 12/19/2019 for abdominal pain: - Normal duodenal bulb and second portion of the duodenum. - Normal stomach. - Undigested pill seen. - Normal esophagus. - No specimens collected. Past Medical History: Past Surgical History: Past Medical History: Diagnosis Date Anxiety Diabetes mellitus (HCC) Gastroparesis Renal disorder Past Surgical History: Procedure Laterality Date BELOW KNEE LEG AMPUTATION ENDOSCOPY UPPER N/A 12/19/2019 Procedure: ENDOSCOPY UPPER; Surgeon: Maloire Block MD; Location: GI Endoscopy; Service: Gastroenterology; Laterality: N/A; GASTRIC STIMULATOR IMPLANT SURGERY Family / Social History: Family History Problem Relation Age of Onset Diabetes Mother Diabetes Sister Social History Socioeconomic History Marital status: Single Spouse name: Not on file Number of children: Not on file Years of education: Not on file Highest education level: Not on file Occupational History Not on file Tobacco Use Smoking status: Never Smokeless tobacco: Never Substance and Sexual Activity Alcohol use: Yes Comment: very rarely only on special occasions as per pt Drug use: Never Sexual activity: Not on file Other Topics Concern Not on file Social History Narrative Not on file Social Determinants of Health Financial Resource Strain: Not on file Food Insecurity: Not on file Transportation Needs: Not on file Physical Activity: Not on file Stress: Not on file Social Connections: Not on file Housing Stability: Not on file Allergies: Allergies Allergen Reactions Morphine Rash/Dermatitis Scheduled Medications: dicyclomine, 10 mg, Oral, TID folic acid, 1 mg, Oral, Daily gabapentin, 100 mg, Oral, Daily insulin glargine, 15 Units, Subcutaneous, Nightly insulin lispro, 1-4 Units, Subcutaneous, NIGHTLY & 2AM insulin lispro, 1-6 Units, Subcutaneous, TID with meals PANTOprazole, 40 mg, Oral, BID thiamine mononitrate, 200 mg, Oral, Daily (Not in a hospital admission) Relevant Lab Data Lab Results Component Value Date WBC 7.7 02/14/2024 HGB 8.5 (L) 02/14/2024 HGB 8.1 (L) 01/13/2024 HGB 8.3 (L) 12/31/2019 MCV 78 (L) 02/14/2024 RETIC 1.3 12/19/2019 RETICABS 35.4 12/19/2019 PLT 406 02/14/2024 NA 136 02/15/2024 BUN 30 (H) 02/15/2024 CREAT 2.3 (H) 02/15/2024 CREAT 2.6 (H) 02/14/2024 CREAT 1.9 (H) 01/13/2024 CO2 27 02/15/2024 ALBUMIN 4.4 02/14/2024 IRON 30 (L) 12/19/2019 TIBC 281 12/19/2019 FERRITIN 14 (L) 12/14/2019 FOLATE >20.0 12/19/2019 Lab Results Component Value Date AST 25 02/14/2024 AST 17 01/13/2024 ALT 14 02/14/2024 ALT 13 01/13/2024 ALKPHOS 115 02/14/2024 ALKPHOS 114 01/13/2024 BILITOT 0.2 02/14/2024 BILITOT BILIDIR BILIDIR Lab Results Component Value Date LIPASE 250 (H) 02/14/2024 HGBA1C 6.2 (H) 02/15/2024 CHOL 161 12/14/2019 ESTLDL 77 12/14/2019 HDL 63 12/14/2019 TRIG 106 12/14/2019 Lab Results Component Value Date TSH 0.70 12/19/2019 CALCIUM 8.9 02/15/2024 ALBUMIN 4.4 02/14/2024 K 3.4 02/15/2024 MG 1.9 12/30/2019 Lab Results Component Value Date FERRITIN 14 (L) 12/14/2019 Objective Physical Exam Temp: [95.8 ?F (35.4 ?C)-98.3 ?F (36.8 ?C)] 95.8 ?F (35.4 ?C) Pulse: [73-92] 77 Resp: [16-20] 20 BP: (98-136)/(50-82) 136/81 Physical Exam Constitutional: General: She is not in acute distress. Comments: She appeared fairly comfortable HENT: Head: Normocephalic. Eyes: Extraocular Movements: Extraocular movements intact. Cardiovascular: Rate and Rhythm: Normal rate. Pulmonary: Effort: Pulmonary effort is normal. No respiratory distress. Abdominal: General: Bowel sounds are normal. There is no distension. Palpations: Abdomen is soft. Tenderness: There is no guarding or rebound. Comments: Mild LUQ TTP. Musculoskeletal: General: No swelling. Skin: Coloration: Skin is not jaundiced. Neurological: General: No focal deficit present. Mental Status: She is alert and oriented to person, place, and time. Psychiatric: Mood and Affect: Mood normal. Will be discussed with GI/Hepatology Service Attending [facility] 02-15-2024 Special Events Assistant Authentication Interface Message Text Attestation signed by Ailyn Sheppard MD at 02/15/2024 8:05 PM Attending Attestation I have personally seen and examined patient. I agree with HPI, A&P outlined above by Dr. Owen. Briefly, Summer wOen is a 38 y.o. year old female with history of DM type I, CKD, heavy menses and RODERICK, known gastroparesis. We are asked to see her for presentation to ER HH for n/v and abdominal pains. Contributing factors may include cannabis use. Pts symptoms have improved after dose of droperidol in ER. On examination, pertinent findings include abd soft with no rebound or guarding. Review on labs and imaging was done and shows: see below Impression: acute on chronic n/v and abdominal pain in pt with longstanding type I dm and chronic gastroparesis with gastric pacer for 9 years. No radiographic pancreatitis with mild lipase elevation. Plan: supportive care Low residue diet with small frequent meals Await transabdominal ultrasound Thank you for letting me participate in the care of your patient. If you have any questions or concerns, please don't hesitate to contact me at any time. Ailyn Ortega MD 02/15/2024 7:57 PM Gastroenterology and Hepatology Fellow Consult Note Admit Date: 02/14/2024 9:38 PM Date of Consult: 02/15/2024 Patient's Primary Care Physician: NOE Zuluaga Physician Requesting Consult: Dr. Parks Reason for Consultation: Gastroparesis with abdominal pain, intractable vomiting Name: Summer Owen Age: 38 y.o. Sex: female Assessment & Plan Assessment 38 year old female with DM1, CKD stage III, chronic RODERICK likely due to heavy menstrual periods, diabetic gastroparesis status post gastric stimulator 9 years ago, anxiety, who presented to the ED for nausea, vomiting, abdominal pain x5 days. Her symptoms are likely due to multifactorial etiology although thankfully she is improving rapidly. She likely has a component of cannabinoid hyperemesis syndrome, supported by symptom improvement with hot showers and significant improvement of symptoms with droperidol overnight. She has a known diagnosis of gastroparesis. She also may have had a transient infectious insult as her symptoms began after eating food at the [employer]. Finally, she does appear to have mild pancreatitis (classic abd pain with elevated lipase) although pancreas appears normal on imaging. It is possible that she was surreptitiously consuming alcohol. Acute on Chronic Abdominal pain Acute on Chronic Nausea, Vomiting (resolved) Chronic Gastroparesis s/p gastric electrical stimulator placement 9y ago Chronic RODERICK JONNY on CKD3 Mild pancreatitis, 2nd episode, unclear etiology Recommendations Antiemetics Advance diet as tolerated to low residue Small frequent meals Glycemic control Marijuana cessation Check PEth Check abdominal ultrasound Check triglycerides IVF LR while PO intake is low (1.5cc/kg/hr) Outpatient EUS Thank you for allowing us to take part in the care of this patient Malorie Alonzo [facility] Gastroenterology and Hepatology Fellow, PGY-6 02/15/24 Subjective 38 year old female with DM1, CKD stage III, chronic RODERICK, diabetic gastroparesis status post gastric stimulator 9 years ago, anxiety, who presented to the ED for nausea, vomiting, abdominal pain x5 days. Patient went to the [employer] on Thursday 02/08 and ate a turkey leg. Then, at 2 or 3 AM on Friday 02/09 she developed persistent nausea and vomiting with left upper quadrant pain radiating to her back and some chest discomfort. She waited a few days to see if her symptoms would self resolve. She undulates her body to help alleviate her symptoms. Hot showers also help alleviate her symptoms. She was also lying at home listening to gospel music. Unfortunately her symptoms persisted which prompted her to go to the ED yesterday 02/14/2024. She received droperidol 1.25 mg IV overnight around 1 AM, and 2 doses of 0.5 mg IV Dilaudid. She was requesting more pain medication if she was due for it. She also received 4 mg IV Zofran this morning around 8:30 AM which improved her nausea. She has not vomited since yesterday and her left upper quadrant pain is improved. She smokes marijuana chronically for at least the past 4 years. She smokes 1 joint of marijuana every few days. No additional edible consumption. She felt a bit feverish previously. Her weight has been stable. She has not had a prior colonoscopy. She denied EtOH. She said her iron deficiency anemia is due to heavy menstrual periods. She was previously on iron supplementation but not currently taking it. Last bowel movement was 2 days ago. Her loose stools completely resolved. UA unremarkable, 11 hyaline casts, small protein, no infection. A1c 6.2 Bicarb 27 Lipase 250 Hgb 8.5, at baseline Imaging CTAP noncontrast today 02/15/2024 - normal pancreas, largely unremarkable CTAP 12/29/2019 - normal pancreas, largely unremarkable CTAP 12/18/2019 - normal pancreas, largely unremarkable Prior Endoscopic Procedures EGD 12/19/2019 for abdominal pain: - Normal duodenal bulb and second portion of the duodenum. - Normal stomach. - Undigested pill seen. - Normal esophagus. - No specimens collected. Past Medical History: Past Surgical History: Past Medical History: Diagnosis Date Anxiety Diabetes mellitus (HCC) Gastroparesis Renal disorder Past Surgical History: Procedure Laterality Date BELOW KNEE LEG AMPUTATION ENDOSCOPY UPPER N/A 12/19/2019 Procedure: ENDOSCOPY UPPER; Surgeon: Malorie Block MD; Location: GI Endoscopy; Service: Gastroenterology; Laterality: N/A; GASTRIC STIMULATOR IMPLANT SURGERY Family / Social History: Family History Problem Relation Age of Onset Diabetes Mother Diabetes Sister Social History Socioeconomic History Marital status: Single Spouse name: Not on file Number of children: Not on file Years of education: Not on file Highest education level: Not on file Occupational History Not on file Tobacco Use Smoking status: Never Smokeless tobacco: Never Substance and Sexual Activity Alcohol use: Yes Comment: very rarely only on special occasions as per pt Drug use: Never Sexual activity: Not on file Other Topics Concern Not on file Social History Narrative Not on file Social Determinants of Health Financial Resource Strain: Not on file Food Insecurity: Not on file Transportation Needs: Not on file Physical Activity: Not on file Stress: Not on file Social Connections: Not on file Housing Stability: Not on file Allergies: Allergies Allergen Reactions Morphine Rash/Dermatitis Scheduled Medications: dicyclomine, 10 mg, Oral, TID folic acid, 1 mg, Oral, Daily gabapentin, 100 mg, Oral, Daily insulin glargine, 15 Units, Subcutaneous, Nightly insulin lispro, 1-4 Units, Subcutaneous, NIGHTLY & 2AM insulin lispro, 1-6 Units, Subcutaneous, TID with meals PANTOprazole, 40 mg, Oral, BID thiamine mononitrate, 200 mg, Oral, Daily (Not in a hospital admission) Relevant Lab Data Lab Results Component Value Date WBC 7.7 02/14/2024 HGB 8.5 (L) 02/14/2024 HGB 8.1 (L) 01/13/2024 HGB 8.3 (L) 12/31/2019 MCV 78 (L) 02/14/2024 RETIC 1.3 12/19/2019 RETICABS 35.4 12/19/2019 PLT 406 02/14/2024 NA 136 02/15/2024 BUN 30 (H) 02/15/2024 CREAT 2.3 (H) 02/15/2024 CREAT 2.6 (H) 02/14/2024 CREAT 1.9 (H) 01/13/2024 CO2 27 02/15/2024 ALBUMIN 4.4 02/14/2024 IRON 30 (L) 12/19/2019 TIBC 281 12/19/2019 FERRITIN 14 (L) 12/14/2019 FOLATE >20.0 12/19/2019 Lab Results Component Value Date AST 25 02/14/2024 AST 17 01/13/2024 ALT 14 02/14/2024 ALT 13 01/13/2024 ALKPHOS 115 02/14/2024 ALKPHOS 114 01/13/2024 BILITOT 0.2 02/14/2024 BILITOT BILIDIR BILIDIR Lab Results Component Value Date LIPASE 250 (H) 02/14/2024 HGBA1C 6.2 (H) 02/15/2024 CHOL 161 12/14/2019 ESTLDL 77 12/14/2019 HDL 63 12/14/2019 TRIG 106 12/14/2019 Lab Results Component Value Date TSH 0.70 12/19/2019 CALCIUM 8.9 02/15/2024 ALBUMIN 4.4 02/14/2024 K 3.4 02/15/2024 MG 1.9 12/30/2019 Lab Results Component Value Date FERRITIN 14 (L) 12/14/2019 Objective Physical Exam Temp: [95.8 ?F (35.4 ?C)-98.3 ?F (36.8 ?C)] 95.8 ?F (35.4 ?C) Pulse: [73-92] 77 Resp: [16-20] 20 BP: (98-136)/(50-82) 136/81 Physical Exam Constitutional: General: She is not in acute distress. Comments: She appeared fairly comfortable HENT: Head: Normocephalic. Eyes: Extraocular Movements: Extraocular movements intact. Cardiovascular: Rate and Rhythm: Normal rate. Pulmonary: Effort: Pulmonary effort is normal. No respiratory distress. Abdominal: General: Bowel sounds are normal. There is no distension. Palpations: Abdomen is soft. Tenderness: There is no guarding or rebound. Comments: Mild LUQ TTP. Musculoskeletal: General: No swelling. Skin: Coloration: Skin is not jaundiced. Neurological: General: No focal deficit present. Mental Status: She is alert and oriented to person, place, and time. Psychiatric: Mood and Affect: Mood normal. Will be discussed with GI/Hepatology Service Attending [facility] 02-15-2024 Consult note Associated Order (s): IP CONSULT TO GASTROENTEROLOGY Gastroenterology and Hepatology Fellow Consult Note Admit Date: 02/14/2024 9:38 PM Date of Consult: 02/15/2024 Patient's Primary Care Physician: NOE Zuluaga Physician Requesting Consult: Dr. Parks Reason for Consultation: Gastroparesis with abdominal pain, intractable vomiting Name: Summer Owen Age: 38 y.o. Sex: female Assessment & Plan Assessment 38 year old female with DM1, CKD stage III, chronic RODERICK likely due to heavy menstrual periods, diabetic gastroparesis status post gastric stimulator 9 years ago, anxiety, who presented to the ED for nausea, vomiting, abdominal pain x5 days. Her symptoms are likely due to multifactorial etiology although thankfully she is improving rapidly. She likely has a component of cannabinoid hyperemesis syndrome, supported by symptom improvement with hot showers and significant improvement of symptoms with droperidol overnight. She has a known diagnosis of gastroparesis. She also may have had a transient infectious insult as her symptoms began after eating food at the [employer]. Finally, she does appear to have mild pancreatitis (classic abd pain with elevated lipase) although pancreas appears normal on imaging. It is possible that she was surreptitiously consuming alcohol. Acute on Chronic Abdominal pain Acute on Chronic Nausea, Vomiting (resolved) Chronic Gastroparesis s/p gastric electrical stimulator placement 9y ago Chronic RODERICK JONNY on CKD3 Mild pancreatitis, 2nd episode, unclear etiology Recommendations Antiemetics Advance diet as tolerated to low residue Small frequent meals Glycemic control Marijuana cessation Check PEth Check abdominal ultrasound Check triglycerides IVF LR while PO intake is low (1.5cc/kg/hr) Outpatient EUS Thank you for allowing us to take part in the care of this patient Malorie Owen [facility] Gastroenterology and Hepatology Fellow, PGY-6 02/15/24 Subjective 38 year old female with DM1, CKD stage III, chronic RODERICK, diabetic gastroparesis status post gastric stimulator 9 years ago, anxiety, who presented to the ED for nausea, vomiting, abdominal pain x5 days. Patient went to the [employer] on Thursday 02/08 and ate a turkey leg. Then, at 2 or 3 AM on Friday 02/09 she developed persistent nausea and vomiting with left upper quadrant pain radiating to her back and some chest discomfort. She waited a few days to see if her symptoms would self resolve. She undulates her body to help alleviate her symptoms. Hot showers also help alleviate her symptoms. She was also lying at home listening to [employer] music. Unfortunately her symptoms persisted which prompted her to go to the ED yesterday 02/14/2024. She received droperidol 1.25 mg IV overnight around 1 AM, and 2 doses of 0.5 mg IV Dilaudid. She was requesting more pain medication if she was due for it. She also received 4 mg IV Zofran this morning around 8:30 AM which improved her nausea. She has not vomited since yesterday and her left upper quadrant pain is improved. She smokes marijuana chronically for at least the past 4 years. She smokes 1 joint of marijuana every few days. No additional edible consumption. She felt a bit feverish previously. Her weight has been stable. She has not had a prior colonoscopy. She denied EtOH. She said her iron deficiency anemia is due to heavy menstrual periods. She was previously on iron supplementation but not currently taking it. Last bowel movement was 2 days ago. Her loose stools completely resolved. UA unremarkable, 11 hyaline casts, small protein, no infection. A1c 6.2 Bicarb 27 Lipase 250 Hgb 8.5, at baseline Imaging CTAP noncontrast today 02/15/2024 - normal pancreas, largely unremarkable CTAP 12/29/2019 - normal pancreas, largely unremarkable CTAP 12/18/2019 - normal pancreas, largely unremarkable Prior Endoscopic Procedures EGD 12/19/2019 for abdominal pain: - Normal duodenal bulb and second portion of the duodenum. - Normal stomach. - Undigested pill seen. - Normal esophagus. - No specimens collected. Past Medical History: Past Surgical History: Past Medical History: Diagnosis Date Anxiety Diabetes mellitus (HCC) Gastroparesis Renal disorder Past Surgical History: Procedure Laterality Date BELOW KNEE LEG AMPUTATION ENDOSCOPY UPPER N/A 12/19/2019 Procedure: ENDOSCOPY UPPER; Surgeon: Malorie Block MD; Location: GI Endoscopy; Service: Gastroenterology; Laterality: N/A; GASTRIC STIMULATOR IMPLANT SURGERY Family / Social History: Family History Problem Relation Age of Onset Diabetes Mother Diabetes Sister Social History Socioeconomic History Marital status: Single Spouse name: Not on file Number of children: Not on file Years of education: Not on file Highest education level: Not on file Occupational History Not on file Tobacco Use Smoking status: Never Smokeless tobacco: Never Substance and Sexual Activity Alcohol use: Yes Comment: very rarely only on special occasions as per pt Drug use: Never Sexual activity: Not on file Other Topics Concern Not on file Social History Narrative Not on file Social Determinants of Health Financial Resource Strain: Not on file Food Insecurity: Not on file Transportation Needs: Not on file Physical Activity: Not on file Stress: Not on file Social Connections: Not on file Housing Stability: Not on file Allergies: Allergies Allergen Reactions Morphine Rash/Dermatitis Scheduled Medications: dicyclomine, 10 mg, Oral, TID folic acid, 1 mg, Oral, Daily gabapentin, 100 mg, Oral, Daily insulin glargine, 15 Units, Subcutaneous, Nightly insulin lispro, 1-4 Units, Subcutaneous, NIGHTLY & 2AM insulin lispro, 1-6 Units, Subcutaneous, TID with meals PANTOprazole, 40 mg, Oral, BID thiamine mononitrate, 200 mg, Oral, Daily (Not in a hospital admission) Relevant Lab Data Lab Results Component Value Date WBC 7.7 02/14/2024 HGB 8.5 (L) 02/14/2024 HGB 8.1 (L) 01/13/2024 HGB 8.3 (L) 12/31/2019 MCV 78 (L) 02/14/2024 RETIC 1.3 12/19/2019 RETICABS 35.4 12/19/2019 PLT 406 02/14/2024 NA 136 02/15/2024 BUN 30 (H) 02/15/2024 CREAT 2.3 (H) 02/15/2024 CREAT 2.6 (H) 02/14/2024 CREAT 1.9 (H) 01/13/2024 CO2 27 02/15/2024 ALBUMIN 4.4 02/14/2024 IRON 30 (L) 12/19/2019 TIBC 281 12/19/2019 FERRITIN 14 (L) 12/14/2019 FOLATE >20.0 12/19/2019 Lab Results Component Value Date AST 25 02/14/2024 AST 17 01/13/2024 ALT 14 02/14/2024 ALT 13 01/13/2024 ALKPHOS 115 02/14/2024 ALKPHOS 114 01/13/2024 BILITOT 0.2 02/14/2024 BILITOT <0.2 (L) 01/13/2024 BILIDIR <0.2 12/18/2019 BILIDIR <0.2 12/16/2019 Lab Results Component Value Date LIPASE 250 (H) 02/14/2024 HGBA1C 6.2 (H) 02/15/2024 CHOL 161 12/14/2019 ESTLDL 77 12/14/2019 HDL 63 12/14/2019 TRIG 106 12/14/2019 Lab Results Component Value Date TSH 0.70 12/19/2019 CALCIUM 8.9 02/15/2024 ALBUMIN 4.4 02/14/2024 K 3.4 02/15/2024 MG 1.9 12/30/2019 Lab Results Component Value Date FERRITIN 14 (L) 12/14/2019 Objective Physical Exam Temp: [95.8 ?F (35.4 ?C)-98.3 ?F (36.8 ?C)] 95.8 ?F (35.4 ?C) Pulse: [73-92] 77 Resp: [16-20] 20 BP: (98-136)/(50-82) 136/81 Physical Exam Constitutional: General: She is not in acute distress. Comments: She appeared fairly comfortable HENT: Head: Normocephalic. Eyes: Extraocular Movements: Extraocular movements intact. Cardiovascular: Rate and Rhythm: Normal rate. Pulmonary: Effort: Pulmonary effort is normal. No respiratory distress. Abdominal: General: Bowel sounds are normal. There is no distension. Palpations: Abdomen is soft. Tenderness: There is no guarding or rebound. Comments: Mild LUQ TTP. Musculoskeletal: General: No swelling. Skin: Coloration: Skin is not jaundiced. Neurological: General: No focal deficit present. Mental Status: She is alert and oriented to person, place, and time. Psychiatric: Mood and Affect: Mood normal. Will be discussed with GI/Hepatology Service Attending Associated attestation - Ailyn Ortega MD - 02/15/2024 8:05 PM EDT Attending Attestation I have personally seen and examined patient. I agree with HPI, A&P outlined above by Dr. Owen. Briefly, Summer Owen is a 38 y.o. year old female with history of DM type I, CKD, heavy menses and RODERICK, known gastroparesis. We are asked to see her for presentation to ER HH for n/v and abdominal pains. Contributing factors may include cannabis use. Pts symptoms have improved after dose of droperidol in ER. On examination, pertinent findings include abd soft with no rebound or guarding. Review on labs and imaging was done and shows: see below Impression: acute on chronic n/v and abdominal pain in pt with longstanding type I dm and chronic gastroparesis with gastric pacer for 9 years. No radiographic pancreatitis with mild lipase elevation. Plan: supportive care Low residue diet with small frequent meals Await transabdominal ultrasound Thank you for letting me participate in the care of your patient. If you have any questions or concerns, please don't hesitate to contact me at any time. Ailyn Ortega MD 02/15/2024 7:57 PM documented in this encounter [facility] 02-15-2024 Note 120 [facility] Work Phone: P-R interval 120 ms EKG [facility] 02-15-2024 Note 380 [facility] Work Phone: Q-T interval 380 ms EKG [facility] 02-15-2024 History and physical note Images from the original note were not included. HOSPITAL MEDICINE ADMISSION HISTORY & PHYSICAL Admit Date: 02/14/2024 9:38 PM Patient's Primary Care Physician: NOE Zuluaga ASSESSMENT & PLAN Principal Problem: JONNY (acute kidney injury) (HCC) (POA: Yes) Active Problems: Epigastric pain (POA: Yes) Resolved Problems: # JONNY on top of CKD (creatinine 2.6 up from 1.9) Most likely prerenal etiology given nausea, vomiting, and loose stool, dehydration , patient looks dry on exam -38-year-old male female patient with past medical history of type 1 diabetes, CKD stage III, chronic anemia, diabetic gastroparesis, anxiety, status post gastric stimulator 9 years ago. Presented to emergency department today with 5 days history of left upper quadrant pain, nausea, vomiting, loose stools, decreased oral intake. Plan Admit patient to medical floor IV fluids Avoid nephrotoxic medications As needed antiemetics Daily BMP Strict MELANY's Follow-up on UA, urine creatinine, urine sodium, urine osmolality, serum osmolality, bladder scan, to decide on JONNY management. # Abdominal pain Left upper quadrant pain, epigastric pain, radiating to left loin. Associated with nausea, vomiting, loose stool. No gross bleeding Significant tenderness left upper quadrant and left CVA tenderness Lipase 250 Differential diagnosis includes diabetic gastroparesis episode, pancreatitis, pyelonephritis, kidney stones therefore I ordered CT abdomen. Less likely DKA since patient bicarb 23 and glucose is 209. Ordered with hydroxybutyrate to be followed up on. As needed analgesics As needed antiemetics IV fluids Resume home medication Will start patient on clear liquid diet for now and advance diet as tolerated # Type 1 diabetes Patient on Lantus insulin 22 units at night [according to patient], she is also on sliding scale Since seeping patient on clear liquid diet for now I will start patient on Lantus insulin 15 units at night in addition to sliding scale. CODE STATUS: full code HCP/Decision maker: Patient Discussed patient's condition,further plan and management with patient and agreed with it. Expected Date of Discharge: 02/17/2024 [facility] Telemetry: No DVT PROPHYLAXIS Risk Assessment Scores and Dates: VTE Time Out IMPROVE SCORE: 0 (02/15/2024 3:12 AM) Interpretation - Low Risk Chemical Prophylaxis Low VTE risk Mechanical Prophylaxis SCDs are ordered - Bilateral (Knee High) ANTIBIOTIC STEWARDSHIP (Disclaimer : absence of data in section implies that patient is not on any antibiotics). ANTIBIOTIC TIME OUT SUBJECTIVE Chief Complaint: Left upper quadrant pain, radiating to left flank. Chief Complaint Patient presents with Flank Pain Subjective -38-year-old male female patient with past medical history of type 1 diabetes, CKD stage III, chronic anemia, diabetic gastroparesis, anxiety, status post gastric stimulator 9 years ago. Presented to emergency department today with 5 days history of left upper quadrant pain, nausea, vomiting, loose stools, decreased oral intake. -Patient denies any fever, no chills, no chest pain, no shortness of breath, no syncope, no gross bleeding, no urinary symptoms. Non-smoker, no alcohol, no drug use. In the ER, stable vitals, CBC without leukocytosis, creatinine 2.6, EKG reviewed with normal sinus rhythm, QTc 482. Ordered LR 1 L fluid, droperidol for nausea and vomiting. -I saw patient myself in the ER, oriented x 4, no chest pain, noted significant left upper quadrant tenderness, left CVA tenderness. REVIEW OF SYSTEMS Review of Systems Constitutional: Negative for chills and fever. HENT: Negative for ear pain. Eyes: Negative for pain. Cardiovascular: Negative for chest pain. Respiratory: Negative for cough and shortness of breath. Skin: Negative for dry skin. Musculoskeletal: Negative for back pain. Gastrointestinal: Positive for abdominal pain. Negative for constipation. Genitourinary: Negative for dysuria. Neurological: Negative for dizziness. PAST HISTORY Past Medical History: Diagnosis Date Anxiety Diabetes mellitus (HCC) Gastroparesis Renal disorder Past Surgical History: Procedure Laterality Date BELOW KNEE LEG AMPUTATION ENDOSCOPY UPPER N/A 12/19/2019 Procedure: ENDOSCOPY UPPER; Surgeon: Malorie Block MD; Location: GI Endoscopy; Service: Gastroenterology; Laterality: N/A; GASTRIC STIMULATOR IMPLANT SURGERY Family History Problem Relation Age of Onset Diabetes Mother Diabetes Sister Social History Tobacco Use Smoking status: Never Smokeless tobacco: Never Substance Use Topics Alcohol use: Yes Comment: very rarely only on special occasions as per pt Drug use: Never ALLERGIES Allergies Allergen Reactions Morphine Rash/Dermatitis HOME MEDICATIONS Prior to Admission medications Medication Sig Start Date End Date Taking? Authorizing Provider acetaminophen (TYLENOL) 325 MG tablet Take 3 tablets (975 mg total) by mouth 4 times daily (every 6 hours) as needed for moderate pain. 12/20/19 01/19/20 Shu Stearns MD acetaminophen-codeine (TYLENOL #3) 300-30 MG per tablet Take 1 tablet by mouth 3 times daily (every 8 hours). For 5 days 12/23/19 External Provider, Admelog SoloStar 100 UNIT/ML prefilled pen injection Administer 0-6 units under the skin three times a day asper sliding scale 11/22/19 External Provider, dicyclomine (BENTYL) 10 MG capsule Take 1 capsule (10 mg total) by mouth 3 (three) times a day. 12/20/19 01/19/20 Shu Stearns MD folic acid (FOLVITE) 1 MG tablet Take 1 tablet (1 mg total) by mouth daily. Do not start before December 21, 2019. 12/21/19 01/20/20 Shu Stearns MD gabapentin (NEURONTIN) 100 MG capsule Take 1 capsule (100 mg total) by mouth daily. Do not start before December 21, 2019. 12/21/19 01/20/20 Shu Stearns MD hydrOXYzine HCl (ATARAX) 25 MG tablet Take 1-2 mg by mouth daily as needed. 11/14/19 External Provider, insulin glargine (LANtus) 100 units/mL injection Inject 0.03 mL (3 Units total) under the skin nightly. 12/31/19 Wes Radford MD multivitamin with minerals Tab tablet Take 1 tablet by mouth daily. Do not start before December 21, 2019. 12/21/19 01/20/20 Shu Stearns MD PANTOprazole (PROTONIX) 40 MG EC tablet Take 1 tablet (40 mg total) by mouth 2 (two) times a day. 12/20/19 01/19/20 Shu Stearns MD thiamine (VITAMIN B-1) 100 MG tablet Take 2 tablets (200 mg total) by mouth daily. 12/20/19 01/19/20 Shu Stearns MD OBJECTIVE Patient Vitals for the past 8 hrs: BP Temp Temp src Pulse Resp SpO2 02/15/24 0139 121/77 -- -- 84 16 99 % 02/14/24 2134 121/82 98.3 ?F (36.8 ?C) Tympanic 92 16 98 % No intake or output data in the 24 hours ending 02/15/24 0314 Physical Exam Vitals reviewed. Constitutional: General: She is not in acute distress. HENT: Head: Normocephalic. Nose: Nose normal. Mouth/Throat: Mouth: Mucous membranes are dry. Eyes: General: No scleral icterus. Cardiovascular: Rate and Rhythm: Normal rate. Pulses: Normal pulses. Pulmonary: Effort: Pulmonary effort is normal. Abdominal: General: Bowel sounds are normal. Comments: Significant tenderness left upper quadrant, left CVA tenderness. Musculoskeletal: General: No swelling. Skin: General: Skin is warm. Neurological: General: No focal deficit present. Mental Status: She is alert and oriented to person, place, and time. Relevant data reviewed Results from last 7 days Lab Units 02/14/24 2148 WHITE BLOOD CELL COUNT Thou/uL 7.7 HEMOGLOBIN g/dL 8.5* HEMATOCRIT % 27.9* PLATELET COUNT Thou/uL 406 NEUTROS PCT % 62.8 LYMPHS PCT % 26.3 MONOS PCT % 7.7 EOS PCT % 2.1 BASOS PCT % 0.8 Results from last 7 days Lab Units 02/14/24 2148 SODIUM mmol/L 134* POTASSIUM mmol/L 3.4 CHLORIDE mmol/L 93* CO2 mmol/L 23 BUN mg/dL 33* CREATININE mg/dL 2.6* CALCIUM mg/dL 9.0 GLUCOSE mg/dL 209* EGFR 23* ALBUMIN g/dL 4.4 PROTEIN, TOTAL g/dL 7.8 BILIRUBIN TOTAL mg/dL 0.2 ALK PHOS U/L 115 ALT U/L 14 AST U/L 25 Lab Results Component Value Date ALT 14 02/14/2024 AST 25 02/14/2024 ALKPHOS 115 02/14/2024 BILITOT 0.2 02/14/2024 ECG: I independently reviewed the EKG and it shows normal sinus rhythm, QTc 482, patient denies any chest pain. Imaging Studies CT abdomen ordered to be followed up on Sign Jaimie Billings MD 02/15/2024 3:14 AM Of note, some information is being carried forward from prior records for informational purposes only and is being cited so that efficiency, safety and quality of this patient's care is not compromised. This note was prepared using voice recognition software and direct typing please excuse inadvertent chinese teacher or typing errors or uncorrected wart substitutions. Although every attempt has been made by the provider to proofread this document, occasional misspellings and typographical errors may still be present. [facility] 02-15-2024 Special Events Assistant Authentication Interface Message Text HOSPITAL MEDICINE ADMISSION HISTORY & PHYSICAL Admit Date: 02/14/2024 9:38 PM Patient's Primary Care Physician: NOE Zuluaga ASSESSMENT & PLAN Principal Problem: JONNY (acute kidney injury) (HCC) (POA: Yes) Active Problems: Epigastric pain (POA: Yes) Resolved Problems: # JONNY on top of CKD (creatinine 2.6 up from 1.9) Most likely prerenal etiology given nausea, vomiting, and loose stool, dehydration , patient looks dry on exam -38-year-old male female patient with past medical history of type 1 diabetes, CKD stage III, chronic anemia, diabetic gastroparesis, anxiety, status post gastric stimulator 9 years ago. Presented to emergency department today with 5 days history of left upper quadrant pain, nausea, vomiting, loose stools, decreased oral intake. Plan Admit patient to medical floor IV fluids Avoid nephrotoxic medications As needed antiemetics Daily BMP Strict MELANY's Follow-up on UA, urine creatinine, urine sodium, urine osmolality, serum osmolality, bladder scan, to decide on JONNY management. # Abdominal pain Left upper quadrant pain, epigastric pain, radiating to left loin. Associated with nausea, vomiting, loose stool. No gross bleeding Significant tenderness left upper quadrant and left CVA tenderness Lipase 250 Differential diagnosis includes diabetic gastroparesis episode, pancreatitis, pyelonephritis, kidney stones therefore I ordered CT abdomen. Less likely DKA since patient bicarb 23 and glucose is 209. Ordered with hydroxybutyrate to be followed up on. As needed analgesics As needed antiemetics IV fluids Resume home medication Will start patient on clear liquid diet for now and advance diet as tolerated # Type 1 diabetes Patient on Lantus insulin 22 units at night [according to patient], she is also on sliding scale Since seeping patient on clear liquid diet for now I will start patient on Lantus insulin 15 units at night in addition to sliding scale. CODE STATUS: full code HCP/Decision maker: Patient Discussed patient's condition,further plan and management with patient and agreed with it. Expected Date of Discharge: 02/17/2024 [facility] Telemetry: No DVT PROPHYLAXIS Risk Assessment Scores and Dates: VTE Time Out IMPROVE SCORE: 0 (02/15/2024 3:12 AM) Interpretation - Low Risk Chemical Prophylaxis Low VTE risk Mechanical Prophylaxis SCDs are ordered - Bilateral (Knee High) ANTIBIOTIC STEWARDSHIP (Disclaimer : absence of data in section implies that patient is not on any antibiotics). ANTIBIOTIC TIME OUT SUBJECTIVE Chief Complaint: Left upper quadrant pain, radiating to left flank. Chief Complaint Patient presents with Flank Pain Subjective -38-year-old male female patient with past medical history of type 1 diabetes, CKD stage III, chronic anemia, diabetic gastroparesis, anxiety, status post gastric stimulator 9 years ago. Presented to emergency department today with 5 days history of left upper quadrant pain, nausea, vomiting, loose stools, decreased oral intake. -Patient denies any fever, no chills, no chest pain, no shortness of breath, no syncope, no gross bleeding, no urinary symptoms. Non-smoker, no alcohol, no drug use. In the ER, stable vitals, CBC without leukocytosis, creatinine 2.6, EKG reviewed with normal sinus rhythm, QTc 482. Ordered LR 1 L fluid, droperidol for nausea and vomiting. -I saw patient myself in the ER, oriented x 4, no chest pain, noted significant left upper quadrant tenderness, left CVA tenderness. REVIEW OF SYSTEMS Review of Systems Constitutional: Negative for chills and fever. HENT: Negative for ear pain. Eyes: Negative for pain. Cardiovascular: Negative for chest pain. Respiratory: Negative for cough and shortness of breath. Skin: Negative for dry skin. Musculoskeletal: Negative for back pain. Gastrointestinal: Positive for abdominal pain. Negative for constipation. Genitourinary: Negative for dysuria. Neurological: Negative for dizziness. PAST HISTORY Past Medical History: Diagnosis Date Anxiety Diabetes mellitus (HCC) Gastroparesis Renal disorder Past Surgical History: Procedure Laterality Date BELOW KNEE LEG AMPUTATION ENDOSCOPY UPPER N/A 12/19/2019 Procedure: ENDOSCOPY UPPER; Surgeon: Malorie Block MD; Location: GI Endoscopy; Service: Gastroenterology; Laterality: N/A; GASTRIC STIMULATOR IMPLANT SURGERY Family History Problem Relation Age of Onset Diabetes Mother Diabetes Sister Social History Tobacco Use Smoking status: Never Smokeless tobacco: Never Substance Use Topics Alcohol use: Yes Comment: very rarely only on special occasions as per pt Drug use: Never ALLERGIES Allergies Allergen Reactions Morphine Rash/Dermatitis HOME MEDICATIONS Prior to Admission medications Medication Sig Start Date End Date Taking? Authorizing Provider acetaminophen (TYLENOL) 325 MG tablet Take 3 tablets (975 mg total) by mouth 4 times daily (every 6 hours) as needed for moderate pain. 12/20/19 01/19/20 Shu Stearns MD acetaminophen-codeine (TYLENOL #3) 300-30 MG per tablet Take 1 tablet by mouth 3 times daily (every 8 hours). For 5 days 12/23/19 External Provider, Admelog SoloStar 100 UNIT/ML prefilled pen injection Administer 0-6 units under the skin three times a day asper sliding scale 11/22/19 External Provider, dicyclomine (BENTYL) 10 MG capsule Take 1 capsule (10 mg total) by mouth 3 (three) times a day. 12/20/19 01/19/20 Shu Stearns MD folic acid (FOLVITE) 1 MG tablet Take 1 tablet (1 mg total) by mouth daily. Do not start before December 21, 2019. 12/21/19 01/20/20 Shu Stearns MD gabapentin (NEURONTIN) 100 MG capsule Take 1 capsule (100 mg total) by mouth daily. Do not start before December 21, 2019. 12/21/19 01/20/20 Shu Stearns MD hydrOXYzine HCl (ATARAX) 25 MG tablet Take 1-2 mg by mouth daily as needed. 11/14/19 External ProviderMD insulin glargine (LANtus) 100 units/mL injection Inject 0.03 mL (3 Units total) under the skin nightly. 12/31/19 Wes Radford MD multivitamin with minerals Tab tablet Take 1 tablet by mouth daily. Do not start before December 21, 2019. 12/21/19 01/20/20 Shu Stearns MD PANTOprazole (PROTONIX) 40 MG EC tablet Take 1 tablet (40 mg total) by mouth 2 (two) times a day. 12/20/19 01/19/20 Shu Stearns MD thiamine (VITAMIN B-1) 100 MG tablet Take 2 tablets (200 mg total) by mouth daily. 12/20/19 01/19/20 Shu Stearns MD OBJECTIVE Patient Vitals for the past 8 hrs: BP Temp Temp src Pulse Resp SpO2 02/15/24 0139 121/77 -- -- 84 16 99 % 02/14/24 2134 121/82 98.3 ?F (36.8 ?C) Tympanic 92 16 98 % No intake or output data in the 24 hours ending 02/15/24 0314 Physical Exam Vitals reviewed. Constitutional: General: She is not in acute distress. HENT: Head: Normocephalic. Nose: Nose normal. Mouth/Throat: Mouth: Mucous membranes are dry. Eyes: General: No scleral icterus. Cardiovascular: Rate and Rhythm: Normal rate. Pulses: Normal pulses. Pulmonary: Effort: Pulmonary effort is normal. Abdominal: General: Bowel sounds are normal. Comments: Significant tenderness left upper quadrant, left CVA tenderness. Musculoskeletal: General: No swelling. Skin: General: Skin is warm. Neurological: General: No focal deficit present. Mental Status: She is alert and oriented to person, place, and time. Relevant data reviewed Results from last 7 days Lab Units 10/02/24 2148 WHITE BLOOD CELL COUNT Thou/uL 7.7 HEMOGLOBIN g/dL 8.5* HEMATOCRIT % 27.9* PLATELET COUNT Thou/uL 406 NEUTROS PCT % 62.8 LYMPHS PCT % 26.3 MONOS PCT % 7.7 EOS PCT % 2.1 BASOS PCT % 0.8 Results from last 7 days Lab Units 02/14/24 2148 SODIUM mmol/L 134* POTASSIUM mmol/L 3.4 CHLORIDE mmol/L 93* CO2 mmol/L 23 BUN mg/dL 33* CREATININE mg/dL 2.6* CALCIUM mg/dL 9.0 GLUCOSE mg/dL 209* EGFR 23* ALBUMIN g/dL 4.4 PROTEIN, TOTAL g/dL 7.8 BILIRUBIN TOTAL mg/dL 0.2 ALK PHOS U/L 115 ALT U/L 14 AST U/L 25 Lab Results Component Value Date ALT 14 02/14/2024 AST 25 02/14/2024 ALKPHOS 115 02/14/2024 BILITOT 0.2 02/14/2024 ECG: I independently reviewed the EKG and it shows normal sinus rhythm, QTc 482, patient denies any chest pain. Imaging Studies CT abdomen ordered to be followed up on Sign Jaimie Billings MD 02/15/2024 3:14 AM Of note, some information is being carried forward from prior records for informational purposes only and is being cited so that efficiency, safety and quality of this patient's care is not compromised. This note was prepared using voice recognition software and direct typing please excuse inadvertent chinese teacher or typing errors or uncorrected wart substitutions. Although every attempt has been made by the provider to proofread this document, occasional misspellings and typographical errors may still be present. [facility] 02-15-2024 History and physical note Images from the original note were not included. HOSPITAL MEDICINE ADMISSION HISTORY & PHYSICAL Admit Date: 02/14/2024 9:38 PM Patient's Primary Care Physician: NOE Zuluaga ASSESSMENT & PLAN Principal Problem: JONNY (acute kidney injury) (HCC) (POA: Yes) Active Problems: Epigastric pain (POA: Yes) Resolved Problems: # JONNY on top of CKD (creatinine 2.6 up from 1.9) Most likely prerenal etiology given nausea, vomiting, and loose stool, dehydration , patient looks dry on exam -38-year-old male female patient with past medical history of type 1 diabetes, CKD stage III, chronic anemia, diabetic gastroparesis, anxiety, status post gastric stimulator 9 years ago. Presented to emergency department today with 5 days history of left upper quadrant pain, nausea, vomiting, loose stools, decreased oral intake. Plan Admit patient to medical floor IV fluids Avoid nephrotoxic medications As needed antiemetics Daily BMP Strict MELANY's Follow-up on UA, urine creatinine, urine sodium, urine osmolality, serum osmolality, bladder scan, to decide on JONNY management. # Abdominal pain Left upper quadrant pain, epigastric pain, radiating to left loin. Associated with nausea, vomiting, loose stool. No gross bleeding Significant tenderness left upper quadrant and left CVA tenderness Lipase 250 Differential diagnosis includes diabetic gastroparesis episode, pancreatitis, pyelonephritis, kidney stones therefore I ordered CT abdomen. Less likely DKA since patient bicarb 23 and glucose is 209. Ordered with hydroxybutyrate to be followed up on. As needed analgesics As needed antiemetics IV fluids Resume home medication Will start patient on clear liquid diet for now and advance diet as tolerated # Type 1 diabetes Patient on Lantus insulin 22 units at night [according to patient], she is also on sliding scale Since seeping patient on clear liquid diet for now I will start patient on Lantus insulin 15 units at night in addition to sliding scale. CODE STATUS: full code HCP/Decision maker: Patient Discussed patient's condition,further plan and management with patient and agreed with it. Expected Date of Discharge: 02/17/2024 [employer] Telemetry: No DVT PROPHYLAXIS Risk Assessment Scores and Dates: VTE Time Out IMPROVE SCORE: 0 (02/15/2024 3:12 AM) Interpretation - Low Risk Chemical Prophylaxis Low VTE risk Mechanical Prophylaxis SCDs are ordered - Bilateral (Knee High) ANTIBIOTIC STEWARDSHIP (Disclaimer : absence of data in section implies that patient is not on any antibiotics). ANTIBIOTIC TIME OUT SUBJECTIVE Chief Complaint: Left upper quadrant pain, radiating to left flank. Chief Complaint Patient presents with Flank Pain Subjective -38-year-old male female patient with past medical history of type 1 diabetes, CKD stage III, chronic anemia, diabetic gastroparesis, anxiety, status post gastric stimulator 9 years ago. Presented to emergency department today with 5 days history of left upper quadrant pain, nausea, vomiting, loose stools, decreased oral intake. -Patient denies any fever, no chills, no chest pain, no shortness of breath, no syncope, no gross bleeding, no urinary symptoms. Non-smoker, no alcohol, no drug use. In the ER, stable vitals, CBC without leukocytosis, creatinine 2.6, EKG reviewed with normal sinus rhythm, QTc 482. Ordered LR 1 L fluid, droperidol for nausea and vomiting. -I saw patient myself in the ER, oriented x 4, no chest pain, noted significant left upper quadrant tenderness, left CVA tenderness. REVIEW OF SYSTEMS Review of Systems Constitutional: Negative for chills and fever. HENT: Negative for ear pain. Eyes: Negative for pain. Cardiovascular: Negative for chest pain. Respiratory: Negative for cough and shortness of breath. Skin: Negative for dry skin. Musculoskeletal: Negative for back pain. Gastrointestinal: Positive for abdominal pain. Negative for constipation. Genitourinary: Negative for dysuria. Neurological: Negative for dizziness. PAST HISTORY Past Medical History: Diagnosis Date Anxiety Diabetes mellitus (HCC) Gastroparesis Renal disorder Past Surgical History: Procedure Laterality Date BELOW KNEE LEG AMPUTATION ENDOSCOPY UPPER N/A 12/19/2019 Procedure: ENDOSCOPY UPPER; Surgeon: Malorie Block MD; Location: GI Endoscopy; Service: Gastroenterology; Laterality: N/A; GASTRIC STIMULATOR IMPLANT SURGERY Family History Problem Relation Age of Onset Diabetes Mother Diabetes Sister Social History Tobacco Use Smoking status: Never Smokeless tobacco: Never Substance Use Topics Alcohol use: Yes Comment: very rarely only on special occasions as per pt Drug use: Never ALLERGIES Allergies Allergen Reactions Morphine Rash/Dermatitis HOME MEDICATIONS Prior to Admission medications Medication Sig Start Date End Date Taking? Authorizing Provider acetaminophen (TYLENOL) 325 MG tablet Take 3 tablets (975 mg total) by mouth 4 times daily (every 6 hours) as needed for moderate pain. 12/20/19 01/19/20 Shu Stearns MD acetaminophen-codeine (TYLENOL #3) 300-30 MG per tablet Take 1 tablet by mouth 3 times daily (every 8 hours). For 5 days 12/23/19 External Provider, Admelog SoloStar 100 UNIT/ML prefilled pen injection Administer 0-6 units under the skin three times a day asper sliding scale 11/22/19 External Provider, dicyclomine (BENTYL) 10 MG capsule Take 1 capsule (10 mg total) by mouth 3 (three) times a day. 12/20/19 01/19/20 Shu Stearns MD folic acid (FOLVITE) 1 MG tablet Take 1 tablet (1 mg total) by mouth daily. Do not start before December 21, 2019. 12/21/19 01/20/20 Shu Stearns MD gabapentin (NEURONTIN) 100 MG capsule Take 1 capsule (100 mg total) by mouth daily. Do not start before December 21, 2019. 12/21/19 01/20/20 Shu Stearns MD hydrOXYzine HCl (ATARAX) 25 MG tablet Take 1-2 mg by mouth daily as needed. 11/14/19 External Provider, insulin glargine (LANtus) 100 units/mL injection Inject 0.03 mL (3 Units total) under the skin nightly. 12/31/19 Wes Radford MD multivitamin with minerals Tab tablet Take 1 tablet by mouth daily. Do not start before December 21, 2019. 12/21/19 01/20/20 Shu Stearns MD PANTOprazole (PROTONIX) 40 MG EC tablet Take 1 tablet (40 mg total) by mouth 2 (two) times a day. 12/20/19 01/19/20 Shu Stearns MD thiamine (VITAMIN B-1) 100 MG tablet Take 2 tablets (200 mg total) by mouth daily. 12/20/19 01/19/20 Shu Stearns MD OBJECTIVE Patient Vitals for the past 8 hrs: BP Temp Temp src Pulse Resp SpO2 02/15/24 0139 121/77 -- -- 84 16 99 % 02/14/24 2134 121/82 98.3 ?F (36.8 ?C) Tympanic 92 16 98 % No intake or output data in the 24 hours ending 02/15/24 0314 Physical Exam Vitals reviewed. Constitutional: General: She is not in acute distress. HENT: Head: Normocephalic. Nose: Nose normal. Mouth/Throat: Mouth: Mucous membranes are dry. Eyes: General: No scleral icterus. Cardiovascular: Rate and Rhythm: Normal rate. Pulses: Normal pulses. Pulmonary: Effort: Pulmonary effort is normal. Abdominal: General: Bowel sounds are normal. Comments: Significant tenderness left upper quadrant, left CVA tenderness. Musculoskeletal: General: No swelling. Skin: General: Skin is warm. Neurological: General: No focal deficit present. Mental Status: She is alert and oriented to person, place, and time. Relevant data reviewed Results from last 7 days Lab Units 02/14/24 2148 WHITE BLOOD CELL COUNT Thou/uL 7.7 HEMOGLOBIN g/dL 8.5* HEMATOCRIT % 27.9* PLATELET COUNT Thou/uL 406 NEUTROS PCT % 62.8 LYMPHS PCT % 26.3 MONOS PCT % 7.7 EOS PCT % 2.1 BASOS PCT % 0.8 Results from last 7 days Lab Units 02/14/24 2148 SODIUM mmol/L 134* POTASSIUM mmol/L 3.4 CHLORIDE mmol/L 93* CO2 mmol/L 23 BUN mg/dL 33* CREATININE mg/dL 2.6* CALCIUM mg/dL 9.0 GLUCOSE mg/dL 209* EGFR 23* ALBUMIN g/dL 4.4 PROTEIN, TOTAL g/dL 7.8 BILIRUBIN TOTAL mg/dL 0.2 ALK PHOS U/L 115 ALT U/L 14 AST U/L 25 Lab Results Component Value Date ALT 14 02/14/2024 AST 25 02/14/2024 ALKPHOS 115 02/14/2024 BILITOT 0.2 02/14/2024 ECG: I independently reviewed the EKG and it shows normal sinus rhythm, QTc 482, patient denies any chest pain. Imaging Studies CT abdomen ordered to be followed up on Sign Jaimie Billings MD 02/15/2024 3:14 AM Of note, some information is being carried forward from prior records for informational purposes only and is being cited so that efficiency, safety and quality of this patient's care is not compromised. This note was prepared using voice recognition software and direct typing please excuse inadvertent chinese teacher or typing errors or uncorrected wart substitutions. Although every attempt has been made by the provider to proofread this document, occasional misspellings and typographical errors may still be present. documented in this encounter [facility] 02-15-2024 Special Events Assistant Authentication Interface Message Text History History of present illness: Chief Complaint Patient presents with Flank Pain Summer Owen is a 38 y.o. female with history of diabetes, gastroparesis, CKD, anxiety presents emergency department for evaluation of nausea, vomiting, left upper abdominal pain x 5 days. Reports burning epigastric discomfort. Denies fever, chills, diarrhea, melena, grossly bloody stools, dysuria, hematuria, change or frequency. States pain to her left upper abdomen and left side of back is similar to her prior episodes of gastroparesis although more severe. States she has gastric stimulator which was placed approximately 9 years ago. She has been unable to tolerate anything by mouth. I have reviewed the patients medications, allergies, past medical history, social history and family history as documented. Past Medical History: Diagnosis Date Anxiety Diabetes mellitus (HCC) Gastroparesis Renal disorder Past Surgical History: Procedure Laterality Date BELOW KNEE LEG AMPUTATION ENDOSCOPY UPPER N/A 12/19/2019 Procedure: ENDOSCOPY UPPER; Surgeon: Malorie Block MD; Location: GI Endoscopy; Service: Gastroenterology; Laterality: N/A; GASTRIC STIMULATOR IMPLANT SURGERY Social History Tobacco Use Smoking status: Never Smokeless tobacco: Never Substance Use Topics Alcohol use: Yes Comment: very rarely only on special occasions as per pt Drug use: Never Family History Problem Relation Age of Onset Diabetes Mother Diabetes Sister Review of Systems: Review of systems otherwise negative other than stated in HPI. Physical Vitals: 02/15/242021 BP: (!) 151/93 Pulse: 93 Resp: 20 Temp: (!) 94.5 ?F (34.7 ?C) SpO2: 100% Weight: Vital signs reviewed. Constitutional: Anxious, uncomfortable, nontoxic, well-nourished Head: normocephalic, atraumatic Eyes: PERRL; EOM intact, conjunctiva and sclera are clear bilaterally. ENT: external ears and nose are without mass, edema or lesions. oropharynx reveals a midline uvula without deviation. hard and soft palate are without lesion or edema. there is no erythema, exudate of tonsils and the airway is patent. Neck: supple, nontender, normal ROM Cardiac: normal S1, S2; no murmurs, rubs or gallops. regular rate and rhythm. Pulm: normal respiratory effort; breath sounds are clear and equal bilaterally; no wheeze, rhonchi or rales. no accessory muscle use. Abdomen: normal bowel sounds; soft, mild tenderness to epigastric and left upper quadrant with palpation, nondistended. no palpable organomegaly, no masses or palpable hernia. no rebound or rigidity Back: no CVA or flank tenderness EXT: no apparent deformity, normal ROM in all extremities. Skin: normal for age and race, no rash. warm and dry Neuro: alert and oriented x 3. ED Course History obtained from: patient The patient agreed with and expressed verbal understanding of the plan Vitals: 02/15/24 1342 02/15/24 1501 02/15/24 1502 02/15/242021 BP: 130/77 129/75 (!) 151/93 BP Location: Left arm Right arm Right arm Patient Position: Sitting Standing Sitting Pulse: 80 85 93 Resp: 20 20 20 Temp: (!) 95.1 ?F (35.1 ?C) (!) 94.5 ?F (34.7 ?C) TempSrc: Tympanic Tympanic SpO2: 97% 100% 100% Weight: 80.7 kg (177 lb 14.6 oz) Medical Decision Making: Summer Owen is a 38 y.o. female who is presenting to the emergency department for evaluation of upper abdominal pain, nausea, vomiting with prior history of gastroparesis and similar presentations to ED. Patient appears uncomfortable, nontoxic. Patient treated symptomatically for nausea, vomiting and pain. Labs obtained revealing mild pancreatitis. Plan to admit for further pain control, bowel rest, IV fluids in setting of acute pancreatitis and acute on CKD. Discussed the pertinent elements of the patient's care with ED attending, nursing staff, admitting I personally reviewed the patients EKG. My interpretation is: NSR, normal axis and intervals, no evidence of LVH, no ST elevation, no ST depression, no T wave inversions or Q waves. no evidence of Brugada, WPW or epilon waves. Reviewed past pertinent medical documents. They are summarized as follows: History of gastric stimulator, insulin-dependent diabetes, prior admission for pyelonephritis, intractable nausea and vomiting The following patient information/comorbidities was obtained from an outside source and integrated into differential diagnosis: Gastroparesis, known CKD The following conditions were considered as part but not limited to the differential diagnosis: Gastroparesis, gastritis, pyelonephritis, doubt ureteral stone Consideration was given to whether patient would require admission or observation post ED visit: Admitted Considered the following diagnostic testing and pharmacology: Medication List ASK your doctor about these medications Common Name dicyclomine 10 MG capsule 10 mg, Oral, 3 times daily BENTYL folic acid 1 MG tablet 1 mg, Oral, Daily FOLVITE gabapentin 100 MG capsule 100 mg, Oral, Daily NEURONTIN hydrOXYzine HCl 25 MG tablet ATARAX insulin glargine 100 units/mL injection 3 Units, Subcutaneous, Nightly LANtus/SEMGLEE insulin lispro 100 UNIT/ML prefilled pen injection Ask about: Which instructions should I use? HumaLOG KWIKPEN multivitamin with minerals Tabs tablet 1 tablet, Oral, Daily PANTOprazole 40 MG EC tablet 40 mg, Oral, 2 times daily PROTONIX thiamine mononitrate 100 MG tablet 200 mg, Oral, Daily VITAMIN B-1 traZODone 50 MG tablet DESYREL Medications lactated ringers (LR) bolus (0 mL Intravenous Stopped 02/15/24 0216) droPERidol (INAPSINE) injection 1.25 mg (1.25 mg Intravenous Given 02/15/24 0120) insulin glargine (LANtus/SEMGLEE) 100 units/mL injection 15 Units (15 Units Subcutaneous Given 02/15/24 0335) Social Derterminants of health that impact care: transportation, time constraint, behavioral health Social Determinants limited treatment by:unavailability of or inaccessibility to healthcare 12:44 AM 1. JONNY (acute kidney injury) (HCC) 2. Pancreatitis 3. Gastroparesis Labs Reviewed COMPLETE BLOOD COUNT, WITH DIFFERENTIAL - Abnormal; Notable for the following components: Result Value Hemoglobin 8.5 (*) Hematocrit 27.9 (*) Red Blood Cell Count 3.57 (*) MCV 78 (*) MCH 23.8 (*) RDW 17.8 (*) All other components within normal limits COMPREHENSIVE METABOLIC PANEL - Abnormal; Notable for the following components: Glucose 209 (*) Blood Urea Nitrogen (BUN) 33 (*) Creatinine 2.6 (*) eGFR 23 (*) Sodium 134 (*) Chloride 93 (*) Anion Gap 18 (*) All other components within normal limits LIPASE - Abnormal; Notable for the following components: Lipase 250 (*) All other components within normal limits URINALYSIS W/ REFLEX TO MICROSCOPIC AND CULTURE - Abnormal; Notable for the following components: Protein Small (30 mg/dL) (*) Hyaline Casts 11 (*) All other components within normal limits HEMOGLOBIN A1C WITH ESTIMATED AVERAGE GLUCOSE - Abnormal; Notable for the following components: Hemoglobin A1C 6.2 (*) All other components within normal limits BASIC METABOLIC PANEL - Abnormal; Notable for the following components: Glucose 188 (*) Blood Urea Nitrogen (BUN) 30 (*) Creatinine 2.3 (*) eGFR 27 (*) Chloride 96 (*) All other components within normal limits POCT GLUCOSE, FINGERSTICK - Abnormal; Notable for the following components: POC Glucose 118 (*) All other components within normal limits POCT GLUCOSE, FINGERSTICK - Abnormal; Notable for the following components: POC Glucose 173 (*) All other components within normal limits POCT GLUCOSE, FINGERSTICK - Abnormal; Notable for the following components: POC Glucose 117 (*) All other components within normal limits POCT GLUCOSE, FINGERSTICK - Abnormal; Notable for the following components: POC Glucose 132 (*) All other components within normal limits POCT , URINE (CHARGE) - Normal ETHANOL, BLOOD OSMOLALITY, URINE CREATININE, URINE, RANDOM SODIUM, URINE, RANDOM B-HYDROXYBUTYRATE OSMOLALITY POCT GLUCOSE, FINGERSTICK CT Abdomen+pelvis w/o contrast Final Result No acute findings. Interpreted by: Jose Self MD Web Architect I personally reviewed the images and the resident's preliminary report and AGREE with the report as it is now presented ([id number]). NOE Tim 02/19/24 NOE Tim 02/19/24 1449 [facility] 02-15-2024 Special Events Assistant Authentication Interface Message Text History History of present illness: Chief Complaint Patient presents with Flank Pain Summer Owen is a 38 y.o. female with history of diabetes, gastroparesis, CKD, anxiety presents emergency department for evaluation of nausea, vomiting, left upper abdominal pain x 5 days. Reports burning epigastric discomfort. Denies fever, chills, diarrhea, melena, grossly bloody stools, dysuria, hematuria, change or frequency. States pain to her left upper abdomen and left side of back is similar to her prior episodes of gastroparesis although more severe. States she has gastric stimulator which was placed approximately 9 years ago. She has been unable to tolerate anything by mouth. I have reviewed the patients medications, allergies, past medical history, social history and family history as documented. Past Medical History: Diagnosis Date Anxiety Diabetes mellitus (HCC) Gastroparesis Renal disorder Past Surgical History: Procedure Laterality Date BELOW KNEE LEG AMPUTATION ENDOSCOPY UPPER N/A 12/19/2019 Procedure: ENDOSCOPY UPPER; Surgeon: Malorie Block MD; Location: GI Endoscopy; Service: Gastroenterology; Laterality: N/A; GASTRIC STIMULATOR IMPLANT SURGERY Social History Tobacco Use Smoking status: Never Smokeless tobacco: Never Substance Use Topics Alcohol use: Yes Comment: very rarely only on special occasions as per pt Drug use: Never Family History Problem Relation Age of Onset Diabetes Mother Diabetes Sister Review of Systems: Review of systems otherwise negative other than stated in HPI. Physical Vitals: 02/15/242021 BP: (!) 151/93 Pulse: 93 Resp: 20 Temp: (!) 94.5 ?F (34.7 ?C) SpO2: 100% Weight: Vital signs reviewed. Constitutional: Anxious, uncomfortable, nontoxic, well-nourished Head: normocephalic, atraumatic Eyes: PERRL; EOM intact, conjunctiva and sclera are clear bilaterally. ENT: external ears and nose are without mass, edema or lesions. oropharynx reveals a midline uvula without deviation. hard and soft palate are without lesion or edema. there is no erythema, exudate of tonsils and the airway is patent. Neck: supple, nontender, normal ROM Cardiac: normal S1, S2; no murmurs, rubs or gallops. regular rate and rhythm. Pulm: normal respiratory effort; breath sounds are clear and equal bilaterally; no wheeze, rhonchi or rales. no accessory muscle use. Abdomen: normal bowel sounds; soft, mild tenderness to epigastric and left upper quadrant with palpation, nondistended. no palpable organomegaly, no masses or palpable hernia. no rebound or rigidity Back: no CVA or flank tenderness EXT: no apparent deformity, normal ROM in all extremities. Skin: normal for age and race, no rash. warm and dry Neuro: alert and oriented x 3. ED Course History obtained from: patient The patient agreed with and expressed verbal understanding of the plan Vitals: 02/15/24 1342 02/15/24 1501 02/15/24 1502 02/15/242021 BP: 130/77 129/75 (!) 151/93 BP Location: Left arm Right arm Right arm Patient Position: Sitting Standing Sitting Pulse: 80 85 93 Resp: 20 20 20 Temp: (!) 95.1 ?F (35.1 ?C) (!) 94.5 ?F (34.7 ?C) TempSrc: Tympanic Tympanic SpO2: 97% 100% 100% Weight: 80.7 kg (177 lb 14.6 oz) Medical Decision Making: Summer Owen is a 38 y.o. female who is presenting to the emergency department for evaluation of upper abdominal pain, nausea, vomiting with prior history of gastroparesis and similar presentations to ED. Patient appears uncomfortable, nontoxic. Patient treated symptomatically for nausea, vomiting and pain. Labs obtained revealing mild pancreatitis. Plan to admit for further pain control, bowel rest, IV fluids in setting of acute pancreatitis and acute on CKD. Discussed the pertinent elements of the patient's care with ED attending, nursing staff, admitting I personally reviewed the patients EKG. My interpretation is: NSR, normal axis and intervals, no evidence of LVH, no ST elevation, no ST depression, no T wave inversions or Q waves. no evidence of Brugada, WPW or epilon waves. Reviewed past pertinent medical documents. They are summarized as follows: History of gastric stimulator, insulin-dependent diabetes, prior admission for pyelonephritis, intractable nausea and vomiting The following patient information/comorbidities was obtained from an outside source and integrated into differential diagnosis: Gastroparesis, known CKD The following conditions were considered as part but not limited to the differential diagnosis: Gastroparesis, gastritis, pyelonephritis, doubt ureteral stone Consideration was given to whether patient would require admission or observation post ED visit: Admitted Considered the following diagnostic testing and pharmacology: Medication List ASK your doctor about these medications Common Name dicyclomine 10 MG capsule 10 mg, Oral, 3 times daily BENTYL folic acid 1 MG tablet 1 mg, Oral, Daily FOLVITE gabapentin 100 MG capsule 100 mg, Oral, Daily NEURONTIN hydrOXYzine HCl 25 MG tablet ATARAX insulin glargine 100 units/mL injection 3 Units, Subcutaneous, Nightly LANtus/SEMGLEE insulin lispro 100 UNIT/ML prefilled pen injection Ask about: Which instructions should I use? HumaLOG KWIKPEN multivitamin with minerals Tabs tablet 1 tablet, Oral, Daily PANTOprazole 40 MG EC tablet 40 mg, Oral, 2 times daily PROTONIX thiamine mononitrate 100 MG tablet 200 mg, Oral, Daily VITAMIN B-1 traZODone 50 MG tablet DESYREL Medications lactated ringers (LR) bolus (0 mL Intravenous Stopped 02/15/24 0216) droPERidol (INAPSINE) injection 1.25 mg (1.25 mg Intravenous Given 02/15/24 0120) insulin glargine (LANtus/SEMGLEE) 100 units/mL injection 15 Units (15 Units Subcutaneous Given 02/15/24 0335) Social Derterminants of health that impact care: transportation, time constraint, behavioral health Social Determinants limited treatment by:unavailability of or inaccessibility to healthcare 12:44 AM 1. JONNY (acute kidney injury) (HCC) 2. Pancreatitis 3. Gastroparesis Labs Reviewed COMPLETE BLOOD COUNT, WITH DIFFERENTIAL - Abnormal; Notable for the following components: Result Value Hemoglobin 8.5 (*) Hematocrit 27.9 (*) Red Blood Cell Count 3.57 (*) MCV 78 (*) MCH 23.8 (*) RDW 17.8 (*) All other components within normal limits COMPREHENSIVE METABOLIC PANEL - Abnormal; Notable for the following components: Glucose 209 (*) Blood Urea Nitrogen (BUN) 33 (*) Creatinine 2.6 (*) eGFR 23 (*) Sodium 134 (*) Chloride 93 (*) Anion Gap 18 (*) All other components within normal limits LIPASE - Abnormal; Notable for the following components: Lipase 250 (*) All other components within normal limits URINALYSIS W/ REFLEX TO MICROSCOPIC AND CULTURE - Abnormal; Notable for the following components: Protein Small (30 mg/dL) (*) Hyaline Casts 11 (*) All other components within normal limits HEMOGLOBIN A1C WITH ESTIMATED AVERAGE GLUCOSE - Abnormal; Notable for the following components: Hemoglobin A1C 6.2 (*) All other components within normal limits BASIC METABOLIC PANEL - Abnormal; Notable for the following components: Glucose 188 (*) Blood Urea Nitrogen (BUN) 30 (*) Creatinine 2.3 (*) eGFR 27 (*) Chloride 96 (*) All other components within normal limits POCT GLUCOSE, FINGERSTICK - Abnormal; Notable for the following components: POC Glucose 118 (*) All other components within normal limits POCT GLUCOSE, FINGERSTICK - Abnormal; Notable for the following components: POC Glucose 173 (*) All other components within normal limits POCT GLUCOSE, FINGERSTICK - Abnormal; Notable for the following components: POC Glucose 117 (*) All other components within normal limits POCT GLUCOSE, FINGERSTICK - Abnormal; Notable for the following components: POC Glucose 132 (*) All other components within normal limits POCT , URINE (CHARGE) - Normal ETHANOL, BLOOD OSMOLALITY, URINE CREATININE, URINE, RANDOM SODIUM, URINE, RANDOM B-HYDROXYBUTYRATE OSMOLALITY POCT GLUCOSE, FINGERSTICK CT Abdomen+pelvis w/o contrast Final Result No acute findings. Interpreted by: Jose Self MD Web Architect I personally reviewed the images and the resident's preliminary report and AGREE with the report as it is now presented ([id number]). NOE Tim 02/19/24 NOE Tim 02/19/24 [id number] [facility] 02-14-2024 Emergency department Note HPI: 38 female history of CKD 3 baseline creatinine 1.5, IDDM, diabetic gastroparesis with gastric stimulator here with several days of left upper quadrant abdominal pain radiating to left flank nausea vomiting loose stools Vital signs reviewed Constitutional:Mental status alert and appropriate ENT:Patient speaking in normal voice, handling secretions without problems. Musculoskeletal:No obvious deformities, moves all extremities. MDM: History obtained from other source: EMS Testing or Treatment considered but not performed: Additional testing and/or treatment considered but not performed in FEP area, will defer to patient's primary ED provider. [facility] Work Phone: 01-13-2024 Emergency department Note Patient assumed to have eloped. Patient no longer at assigned stretcher, all personal belongings gone. Patient was last seen at 0933 by this RN, with PIV still in place. Drops of blood, an IV catheter and an IV bag found in the trash in the closest bathroom to patient's stretcher, assumed to be hers. CNL will be made aware. Sujey Gunter RN 01/13/2454 [facility] Work Phone: 01-13-2024 Special Events Assistant Authentication Interface Message Text Patient assumed to have eloped. Patient no longer at assigned stretcher, all personal belongings gone. Patient was last seen at 932 by this RN, with PIV still in place. Drops of blood, an IV catheter and an IV bag found in the trash in the closest bathroom to patient's stretcher, assumed to be hers. CNL will be made aware. Sujey Gunter RN 01/13/2454 [facility] 01-13-2024 Emergency department Note Patient assumed to have eloped. Patient no longer at assigned stretcher, all personal belongings gone. Patient was last seen at 932 by this RN, with PIV still in place. Drops of blood, an IV catheter and an IV bag found in the trash in the closest bathroom to patient's stretcher, assumed to be hers. CNL will be made aware. Sujey Gunter RN 01/13/2454 Patient resting in stretcher, A/OX4, RR even/unlabored on room air. Patient denies CP, SOB, n/t and dizziness at this time, but continues to endorse abdominal discomfort and nausea. VS as documented. Patient medicated per JUL. Stretcher in lowest, locked position with personal items in reach. Plan pending symptom control and UA. Sujey Gunter RN 01/13/24 0452 I have acknowledged/accepted the hand off of care for this patient. Sujey Gunter RN 01/13/24 0850 documented in this encounter [facility] 01-13-2024 Emergency department Note Patient resting in stretcher, A/OX4, RR even/unlabored on room air. Patient denies CP, SOB, n/t and dizziness at this time, but continues to endorse abdominal discomfort and nausea. VS as documented. Patient medicated per JUL. Stretcher in lowest, locked position with personal items in reach. Plan pending symptom control and UA. Sujey Gunter RN 01/13/24 0852 [facility] 01-13-2024 Special Events Assistant Authentication Interface Message Text Patient resting in stretcher, A/OX4, RR even/unlabored on room air. Patient denies CP, SOB, n/t and dizziness at this time, but continues to endorse abdominal discomfort and nausea. VS as documented. Patient medicated per JUL. Stretcher in lowest, locked position with personal items in reach. Plan pending symptom control and UA. Sujey Gunter RN 01/13/24 0852 [facility] 01-13-2024 Note 134 [facility] Work Phone: P-R interval 134 ms EKG [facility] 01-13-2024 Note 360 [facility] Work Phone: Q-T interval 360 ms EKG [facility] 01-13-2024 Special Events Assistant Authentication Interface Message Text I personally saw the patient and perform ed a substantive portion of the visit including all aspects of the medical decision-making. I reviewed the AP's or resident's findings, supervised the management of the patient, made/approved the management plan and take responsibility for the patient management. Further, I agree with the controlled substanceprescriptions(s) and/or order(s) as written by the AP, if any. My note reflects my personal findings on my history and exam. I reviewed any nurses notes, vital signs, home medication list, other pertinent history or diagnostic tests available. My note reflects my personal findings on my history and exam. Attending Physician: Opal Hernandez MD Patient Name: Summer Owen is a 38 y.o. female Birthdate: 1985 MDM: 38-year-old woman with history of diabetes, gastroparesis, CKD, who presents today for evaluation of right-sided flank pain for about the last 1 week, worsening over the past few days. States pain constant in nature, sharp. Associated with nausea and vomiting, last episode yesterday. She reports some urinary urgency with decreased urine output however no dysuria or hematuria. Also reporting central and left-sided chest pain over the past few days worse with movement and palpation of the chest. She has minimal intermittent shortness of breath. No diaphoresis, no dizziness. No leg swelling On exam she is very well-appearing. Vitals reassuring. She is tender in her right upper quadrant and right flank. Initial differential diagnosis in regards to her right flank and abdominal pain include renal colic, musculoskeletal pain, biliary colic first less likely cholecystitis. In regards to chest pain, this is suspected to be musculoskeletal in nature. Low suspicion for ACS, PE, aortic dissection or other acute consequential pathology. Plan was made with patient for pain control and likely imaging after lab testing. Unfortunately, patient did elope from the emergency department prior to completion of workup. She did not tell anyone she was leaving. Her IV was found in the bathroom near her room. Both myself and resident did attempt to call the patient at listed contact, her cell phone number is not active and other voicemails are full. We were unable to get in touch with her. Labs reviewed. No leukocytosis. Anemia essentially at baseline. CKD essentially at baseline. She was not able to leave a urine sample. For further details of HPI please see resident/AP note. EKG (my interpretation): Normal sinus rhythm. Rate 91. Normal axis, intervals. No ischemic ST or T wave changes. This is a normal EKG. Allergies: Allergies Allergen Reactions Morphine Rash/Dermatitis Past Medical History: Past Medical History: Diagnosis Date Anxiety Diabetes mellitus (HCC) Gastroparesis Renal disorder Medications: Patient's Medications New Prescriptions No medications on file Previous Medications ACETAMINOPHEN (TYLENOL) 325 MG TABLET Take 3 tablets (975 mg total) by mouth 4 times daily (every 6 hours) as needed for moderate pain. ACETAMINOPHEN-CODEINE (TYLENOL #3) 300-30 MG PER TABLET Take 1 tablet by mouth 3 times daily (every 8 hours). For 5 days ADMELOG SOLOSTAR 100 UNIT/ML PREFILLED PEN INJECTION Administer 0-6 units under the skin three times a day asper sliding scale DICYCLOMINE (BENTYL) 10 MG CAPSULE Take 1 capsule (10 mg total) by mouth 3 (three) times a day. FOLIC ACID (FOLVITE) 1 MG TABLET Take 1 tablet (1 mg total) by mouth daily. Do not start before December 21, 2019. GABAPENTIN (NEURONTIN) 100 MG CAPSULE Take 1 capsule (100 mg total) by mouth daily. Do not start before December 21, 2019. HYDROXYZINE HCL (ATARAX) 25 MG TABLET Take 1-2 mg by mouth daily as needed. INSULIN GLARGINE (LANTUS) 100 UNITS/ML INJECTION Inject 0.03 mL (3 Units total) under the skin nightly. MULTIVITAMIN WITH MINERALS TAB TABLET Take 1 tablet by mouth daily. Do not start before December 21, 2019. PANTOPRAZOLE (PROTONIX) 40 MG EC TABLET Take 1 tablet (40 mg total) by mouth 2 (two) times a day. THIAMINE (VITAMIN B-1) 100 MG TABLET Take 2 tablets (200 mg total) by mouth daily. Modified Medications No medications on file Discontinued Medications No medications on file Surgical History: Past Surgical History: Procedure Laterality Date BELOW KNEE LEG AMPUTATION ENDOSCOPY UPPER N/A 12/19/2019 Procedure: ENDOSCOPY UPPER; Surgeon: Malorie Block MD; Location: GI Endoscopy; Service: Gastroenterology; Laterality: N/A; GASTRIC STIMULATOR IMPLANT SURGERY Social History: Social History Tobacco Use Smoking status: Never Smokeless tobacco: Never Substance Use Topics Alcohol use: Yes Comment: very rarely only on special occasions as per pt Drug use: Never Allergies, Medications, Medical, Surgical, and Social History were reviewed as documented above. Review of systems:a pertinent review systems is noted in HPI Physical Exam Physical Exam Vitals and nursing note reviewed. Constitutional: Appearance: Normal appearance. She is not ill-appearing. HENT: Head: Normocephalic and atraumatic. Nose: Nose normal. Mouth/Throat: Mouth: Mucous membranes are moist. Eyes: General: Right eye: No discharge. Left eye: No discharge. Extraocular Movements: Extraocular movements intact. Cardiovascular: Rate and Rhythm: Normal rate and regular rhythm. Comments: 2+ radial pulses bilaterally Pulmonary: Effort: Pulmonary effort is normal. No respiratory distress. Breath sounds: No wheezing or rales. Chest: Chest wall: Tenderness present. Abdominal: General: There is no distension. Palpations: Abdomen is soft. Tenderness: There is abdominal tenderness (in RUQ/right lateral abdomen, right CVA). Musculoskeletal: General: No swelling, tenderness or deformity. Cervical back: Normal range of motion and neck supple. Skin: General: Skin is warm and dry. Neurological: Mental Status: She is alert. Comments: Alert and awake Speech clear and fluent Cranial nerves, strength, sensation grossly intact Psychiatric: Mood and Affect: Mood normal. Behavior: Behavior normal. For more detailed HPI please refer to resident/AP's note discussed the pertinent elements of the patient's care with n/a I personally reviewed the patients EKG. My interpretation is: n/a I personally viewed the patient's radiologic imaging. My interpretation is: n/a I reviewed past pertinent medical documents. They are summarized as follows: n/a The following pertinent information was obtained from an outside source: n/a Consideration was given to whether patient would require admission or observation post ED visit: n/a Consideration for the following diagnostic tests was given: see above - patient eloped prior to imaging Consideration was given for prescribing the following medications: patient eloped prior to full pain control The following social determinants of health impacted this patient's care: n/a The following past medical history contributing to presentation in ED: n/a \ Opal Hernandez MD Emergency Medicine Opal Hernandez MD 01/13/24 1050 [facility] 01-13-2024 Special Events Assistant Authentication Interface Message Text History Chief Complaint Patient presents with Flank Pain Chest Pain HPI This patient is a 38-year-old female with past medical history of kidney failure, pyelonephritis, gastroparesis, DM on insulin, presents complaining of right sided flank pain which began a week ago. Patient also complaining of n/v, last episode of emesis was yesterday, and urinary urgency and having decreased urine output compared to normal. Does not have a effervescent salts compounder at this time, not on dialysis. Patient also complaining of left-sided chest pain radiating into left shoulder, aggravated by movement ongoing for the past 2 days. Patient is on Humalog, has not taken her insulin in a week secondary to her symptoms. Denies any fever, chills, dysuria, hematuria, polydipsia, shortness of breath, leg swelling, palpitations, dizziness, weakness, visual changes, no other complaints at this time. Flank Pain Associated symptoms include chest pain, nausea and vomiting. Chest Pain Associated symptoms: nausea and vomiting Past Medical History: Diagnosis Date Anxiety Diabetes mellitus (HCC) Gastroparesis Renal disorder Past Surgical History: Procedure Laterality Date BELOW KNEE LEG AMPUTATION ENDOSCOPY UPPER N/A 12/19/2019 Procedure: ENDOSCOPY UPPER; Surgeon: Malorie Block MD; Location: GI Endoscopy; Service: Gastroenterology; Laterality: N/A; GASTRIC STIMULATOR IMPLANT SURGERY Family History Problem Relation Age of Onset Diabetes Mother Diabetes Sister Social History Tobacco Use Smoking status: Never Smokeless tobacco: Never Substance Use Topics Alcohol use: Yes Comment: very rarely only on special occasions as per pt Drug use: Never Review of Systems Cardiovascular: Positive for chest pain. Gastrointestinal: Positive for nausea and vomiting. Genitourinary: Positive for flank pain. Physical Exam BP 120/71 (BP Location: Right arm, Patient Position: Standing) Pulse 83 Temp 98.2 ?F (36.8 ?C) (Oral) Resp 18 SpO2 100% Physical Exam Vitals and nursing note reviewed. Constitutional: Appearance: Normal appearance. HENT: Mouth/Throat: Mouth: Mucous membranes are moist. Eyes: Extraocular Movements: Extraocular movements intact. Pupils: Pupils are equal, round, and reactive to light. Cardiovascular: Rate and Rhythm: Normal rate and regular rhythm. Pulses: Normal pulses. Pulmonary: Effort: Pulmonary effort is normal. Breath sounds: Normal breath sounds. Abdominal: Palpations: Abdomen is soft. Tenderness: There is abdominal tenderness in the right upper quadrant. There is right CVA tenderness. Musculoskeletal: Cervical back: Normal range of motion and neck supple. Skin: General: Skin is warm and dry. Neurological: General: No focal deficit present. Mental Status: She is alert. ED Course Final diagnoses: Flank pain MDM No orders to display ED Course as of 01/13/242004 Sat Jan 13, 2024 0942 Went to go to bedside ultrasound on the patient, patient not in bed and all her belongings are gone. Spoke with RN who states she did not move the patient to another room. [JK] 0954 Per RN there was blood on the floor and a half a bag of LR seen in the trash can by the bathroom. It appears the patient has eloped. RN to notify charge. [JK] 1023 Attempted to call all listed numbers on patient's chart to encourage her to return to the ED, mobile number appears to be disconnected. Called the other two numbers listed with no answer and voicemail inboxes are full so unable to leave a message. [JK] ED Course User Index [JK] Nathanael Doe MD Assessment: 38yo patient presents to the ED for evaluation of R flank pain, L CP. Also c/o N/V, urgency, decr uop Per chart review patient has CKD stage III with baseline creatinine of 1.5. Physical exam significant for pacing by her bed, slightly tearful. Positive CVA tenderness to the right, mild tenderness to palpation of the right upper quadrant, no rebound no guarding. Tenderness to palpation to L chest and L shoulder, pain with L arm movement. I personally reviewed outside records and past medical records. History obtained primarily from patient, chart review Based on patients history and exam, differentials include but are not limited to: Nephrolithiasis, ureterolithiasis, pyelo, UTI, cholelithiasis v. Cholecystitis, acs Social Determinants of Health Tobacco Use: Low Risk (12/20/2019) Patient History Smoking Tobacco Use: Never Smokeless Tobacco Use: Never Passive Exposure: Not on file Alcohol Use: Not on file Financial Resource Strain: Not on file Food Insecurity: Not on file Transportation Needs: Not on file Physical Activity: Not on file Stress: Not on file Social Connections: Not on file Interpersonal Safety: Not on file Depression: Not on file Housing Stability: Not on file Utilities: Not on file Plan: Labs, UA, analgesia, zofran, fluids, imaging Results: I reviewed the imaging and lab results. Labs Reviewed COMPLETE BLOOD COUNT, WITH DIFFERENTIAL - Abnormal; Notable for the following components: Result Value Hemoglobin 8.1 (*) Hematocrit 27.6 (*) Red Blood Cell Count 3.37 (*) MCH 24.0 (*) MCHC 29.3 (*) RDW 17.0 (*) All other components within normal limits COMPREHENSIVE METABOLIC PANEL - Abnormal; Notable for the following components: Glucose 183 (*) Creatinine 1.9 (*) eGFR 34 (*) Bilirubin, Total All other components within normal limits POCT GLUCOSE, FINGERSTICK - Abnormal; Notable for the following components: POC Glucose 234 (*) All other components within normal limits No orders to display Consultants: none Final Disposition: Pt eloped from the department before treatment completed Multiple attempts made to contact the patient via numbers listed on chart. Mobile # is disconnected, others have full voicemail inboxes. Nathanael Doe MD Resident 01/13/242005 [facility] 01-13-2024 Special Events Assistant Authentication Interface Message Text History Chief Complaint Patient presents with Flank Pain Chest Pain HPI This patient is a 38-year-old female with past medical history of kidney failure, pyelonephritis, gastroparesis, DM on insulin, presents complaining of right sided flank pain which began a week ago. Patient also complaining of n/v, last episode of emesis was yesterday, and urinary urgency and having decreased urine output compared to normal. Does not have a effervescent salts compounder at this time, not on dialysis. Patient also complaining of left-sided chest pain radiating into left shoulder, aggravated by movement ongoing for the past 2 days. Patient is on Humalog, has not taken her insulin in a week secondary to her symptoms. Denies any fever, chills, dysuria, hematuria, polydipsia, shortness of breath, leg swelling, palpitations, dizziness, weakness, visual changes, no other complaints at this time. Flank Pain Associated symptoms include chest pain, nausea and vomiting. Chest Pain Associated symptoms: nausea and vomiting Past Medical History: Diagnosis Date Anxiety Diabetes mellitus (HCC) Gastroparesis Renal disorder Past Surgical History: Procedure Laterality Date BELOW KNEE LEG AMPUTATION ENDOSCOPY UPPER N/A 12/19/2019 Procedure: ENDOSCOPY UPPER; Surgeon: Malorie Block MD; Location: GI Endoscopy; Service: Gastroenterology; Laterality: N/A; GASTRIC STIMULATOR IMPLANT SURGERY Family History Problem Relation Age of Onset Diabetes Mother Diabetes Sister Social History Tobacco Use Smoking status: Never Smokeless tobacco: Never Substance Use Topics Alcohol use: Yes Comment: very rarely only on special occasions as per pt Drug use: Never Review of Systems Cardiovascular: Positive for chest pain. Gastrointestinal: Positive for nausea and vomiting. Genitourinary: Positive for flank pain. Physical Exam BP 120/71 (BP Location: Right arm, Patient Position: Standing) Pulse 83 Temp 98.2 ?F (36.8 ?C) (Oral) Resp 18 SpO2 100% Physical Exam Vitals and nursing note reviewed. Constitutional: Appearance: Normal appearance. HENT: Mouth/Throat: Mouth: Mucous membranes are moist. Eyes: Extraocular Movements: Extraocular movements intact. Pupils: Pupils are equal, round, and reactive to light. Cardiovascular: Rate and Rhythm: Normal rate and regular rhythm. Pulses: Normal pulses. Pulmonary: Effort: Pulmonary effort is normal. Breath sounds: Normal breath sounds. Abdominal: Palpations: Abdomen is soft. Tenderness: There is abdominal tenderness in the right upper quadrant. There is right CVA tenderness. Musculoskeletal: Cervical back: Normal range of motion and neck supple. Skin: General: Skin is warm and dry. Neurological: General: No focal deficit present. Mental Status: She is alert. ED Course Final diagnoses: Flank pain MDM No orders to display ED Course as of 01/13/242004 Sat Jan 13, 2024 0942 Went to go to bedside ultrasound on the patient, patient not in bed and all her belongings are gone. Spoke with RN who states she did not move the patient to another room. [JK] 0922 Per RN there was blood on the floor and a half a bag of LR seen in the trash can by the bathroom. It appears the patient has eloped. RN to notify charge. [JK] 1023 Attempted to call all listed numbers on patient's chart to encourage her to return to the ED, mobile number appears to be disconnected. Called the other two numbers listed with no answer and voicemail inboxes are full so unable to leave a message. [JK] ED Course User Index [JK] Nathanael Doe MD Assessment: 38yo patient presents to the ED for evaluation of R flank pain, L CP. Also c/o N/V, urgency, decr uop Per chart review patient has CKD stage III with baseline creatinine of 1.5. Physical exam significant for pacing by her bed, slightly tearful. Positive CVA tenderness to the right, mild tenderness to palpation of the right upper quadrant, no rebound no guarding. Tenderness to palpation to L chest and L shoulder, pain with L arm movement. I personally reviewed outside records and past medical records. History obtained primarily from patient, chart review Based on patients history and exam, differentials include but are not limited to: Nephrolithiasis, ureterolithiasis, pyelo, UTI, cholelithiasis v. Cholecystitis, acs Social Determinants of Health Tobacco Use: Low Risk (12/20/2019) Patient History Smoking Tobacco Use: Never Smokeless Tobacco Use: Never Passive Exposure: Not on file Alcohol Use: Not on file Financial Resource Strain: Not on file Food Insecurity: Not on file Transportation Needs: Not on file Physical Activity: Not on file Stress: Not on file Social Connections: Not on file Interpersonal Safety: Not on file Depression: Not on file Housing Stability: Not on file Utilities: Not on file Plan: Labs, UA, analgesia, zofran, fluids, imaging Results: I reviewed the imaging and lab results. Labs Reviewed COMPLETE BLOOD COUNT, WITH DIFFERENTIAL - Abnormal; Notable for the following components: Result Value Hemoglobin 8.1 (*) Hematocrit 27.6 (*) Red Blood Cell Count 3.37 (*) MCH 24.0 (*) MCHC 29.3 (*) RDW 17.0 (*) All other components within normal limits COMPREHENSIVE METABOLIC PANEL - Abnormal; Notable for the following components: Glucose 183 (*) Creatinine 1.9 (*) eGFR 34 (*) Bilirubin, Total All other components within normal limits POCT GLUCOSE, FINGERSTICK - Abnormal; Notable for the following components: POC Glucose 234 (*) All other components within normal limits No orders to display Consultants: none Final Disposition: Pt eloped from the department before treatment completed Multiple attempts made to contact the patient via numbers listed on chart. Mobile # is disconnected, others have full voicemail inboxes. Nathanael Doe MD Resident 01/13/242005 [facility] 01-13-2024 Emergency department Note Formatting of this note might be differe nt from the original. I have acknowledged/accepted the hand off of care for this patient. Sujey Gunter RN 01/13/24 0850 [facility] 01-13-2024 Special Events Assistant Authentication Interface Message Text I have acknowledged/accepted the hand of f of care for this patient. Sujey Gunter RN 01/13/24 0850 [facility] 12-29-2019 CT ABDOMEN+PELVIS W/O CONTRAST EXAMINATION: CT ABDOMEN AND PELVIS WITHOUT CONTRAST CLINICAL INFORMATION: Left upper quadrant pain radiating to left flank, evaluation for kidney stones, pyonephritis. Pancreatitis. COMPARISON: CT abdomen and pelvis 12/29/2019 TECHNIQUE: Multidetector volumetric imaging was performed from the lung bases through the pubic symphysis. Sagittal and coronal reformatted images were obtained on the technologist workstation. This CT examination was performed using dose optimization techniques as appropriate, variously including the following: *Automated exposure control *Adjustment of mA and/or kV according to patient size (this includes techniques or standardized protocols for targeted exams where dose is matched to indication/reason for exam; i.e. extremities or head) *Use of iterative reconstruction technique Total exam dose-length product 269 mGy-cm. FINDINGS: VISUALIZED CHEST: Normal. LIVER: Normal size, contours, and attenuation. No focal lesion. GALLBLADDER: Normal. PANCREAS: Normal. SPLEEN: Normal. ADRENAL GLANDS: Normal. KIDNEYS: Normal renal parenchyma. No hydronephrosis. No calculi. BLADDER: Normal. GASTROINTESTINAL TRACT: Stomach nondistended. Normal small bowel. Normal colon. Normal appendix. No bowel obstruction. PERITONEUM: No free fluid. ABDOMINAL WALL/SOFT TISSUES: Gastric stimulator in the left abdominal wall. No hernia. LYMPHOVASCULAR: No abdominopelvic lymphadenopathy. Normal caliber aorta. No atherosclerosis. PELVIC VISCERA: Normal. OSSEOUS: No acute or suspicious osseous findings. IMPRESSION: No acute findings. Interpreted by: Jose Self MD Web Architect I personally reviewed the images and the resident's preliminary report and AGREE with the report as it is now presented ([email or web address]). Left upper quadrant pain radiating to left flank, evaluation for kidney stones, pyonephritis. Pancreatitis Electronically Signed on: MonFeb 15, 2024 8:13 AM by Daniel Henry MD Patient Name: SUMMER OWEN - Patient : 1985 - Referring Provider: JAIMIE BILLINGS [facility] Evaluation note Diagnosis Flank pain- Primary Abdominal pain, unspecified site [facility] Diagnosis JONNY (acute kidney injury) (HCC)- Primary JONNY (acute kidney injury) (HCC) Pancreatitis Acute pancreatitis Gastroparesis Epigastric pain Abdominal pain, epigastric [facility] Reason Comments Flank Pain [facility] Reason Comments Flank Pain * Auth/Cert (Routine) Specialty Diagnoses / Procedures Referred By Vinh t Referred To Contact Diagnoses JONNY (acute kidney injury) (HCC) Procedures . Referral ID Status Reason Start Date Expiration Date Visits Re quested Visits Authorized [id number] 1 1 [facility] Advance Directives Date Activated Date Inactivated Comments 12/28/2019 5:04 PM 01/13/2024 2:46 AM Date Activated Date Inactivated Comments 12/14/2019 8:24 AM 12/28/2019 12:07 PM Question Answer Comments Decision Thoroughly Discussed with: Patient Date Activated Date Inactivated Comments 02/15/2024 3:13 AM Question Answer Comments Decision Thoroughly Discussed with: Patient Date Activated Date Inactivated Comments 12/28/2019 5:04 PM 01/13/2024 2:46 AM Date Activated Date Inactivated Comments 12/14/2019 8:24 AM 12/28/2019 12:07 PM Question Answer Comments Decision Thoroughly Discussed with: Patient Additional Source Comments Scheduled Active and Recently Administ ered Medications (unrecognized section and content) Medication Order 01/11/2024 01/12/2024 01/13/2024 lactated ringers (LR) bolus (COMPLETED) 1,000 mL, Intravenous, Administer over 1 Hours, Once, On 01/13/24 at 0728, For 1 dose 0748 (New Bag - Prov ider: Sujey Gunter RN)0842 (Stopped - Provider: Sujey Gunter RN) ketorolac (TORADOL) injection 15 mg (COMPLETED) 15 mg, Intravenous, Once, On 01/13/24 at 0728, For 1 dose, IV push If ordered IV Push: administer undiluted over 2 minutes. 0745 (Given - Provid er: Sujey Gunter RN) ondansetron (ZOFRAN) injection 4 mg (COMPLETED) 4 mg, Intravenous, Once, On 01/13/24 at 0728, For 1 dose 0745 (Given - Provid er: Sujey Gunter RN) oxyCODONE (ROXICODONE) immediate release tablet 5 mg (COMPLETED) 5 mg, Oral, Once, On 01/13/24 at 0920, For 1 dose 0933 (Given - Provid er: Sujey Gunter RN) Scheduled Medication Order 02/14/2024 02/15/2024 02/16/2024 lactated ringers (LR) bolus (COMPLETED) 1,000 mL, Intravenous, Administer over 0.5 Hours, Once, On Ally 02/15/24 at 0044, For 1 dose 0120 (New Bag - Provider: Brooke Peña RN)0216 (Stopped - Provider: Brooke Peña RN) dicyclomine (BENTYL) capsule 10 mg 10 mg, Oral, 3 times daily, First dose on Ally 02/15/24 at 0800 0735 (Given - Provider: Juan David Cristina RN)1416 (Given - Provider: Brody Velasquez RN)2200 (Due) 0800 (Due)1400 (Due)2200 (Due) droPERidol (INAPSINE) injection 1.25 mg (COMPLETED) 1.25 mg, Intravenous, Once, On Ally 02/15/24 at 0044, For 1 dose, To be given IM or slow IV push over 2 minutes. 0120 (Given - Provider: Brooke Peña RN) folic acid (FOLVITE) tablet 1 mg 1 mg, Oral, Daily, First dose on Ally 02/15/24 at 0900 0735 (Given - Provider: Juan David Cristina RN) 0900 (Due) gabapentin (NEURONTIN) capsule 100 mg 100 mg, Oral, Daily, First dose on Ally 02/15/24 at 0900 0735 (Given - Provider: Juan David Cristina RN) 09 (Due) insulin glargine (LANtus/SEMGLEE) 100 units/mL injection 15 Units (COMPLETED) 15 Units, Subcutaneous, Once, On Ally 02/15/24 at 0308, For 1 dose 0335 (Given - Provider: Brooke Peña RN) insulin glargine (LANtus/SEMGLEE) 100 units/mL injection 15 Units 15 Units, Subcutaneous, Nightly, First dose on Ally 02/15/24 at 2100 2100 (Due) 2099 (Due) insulin lispro (HumaLOG/ADMELOG) 100 units/mL injection 1-4 Units 1-4 Units, Subcutaneous, Nightly and 0200, First dose on Ally 02/15/24 at 0311, DO NOT HOLD IF NPO Notify provider if Blood Glucose LESS than 70 For BG 201-250 administer 1 unit For BG 251-300 administer 2 units For BG 301-350 administer 3 units For BG MORE than 350, administer 4 units AND notify provider 0324 (Not Given - Provider: Brooke Peña RN - Reason: Dose held per order parameters)2099 (Due) 199 (Due)2099 (Due) insulin lispro (HumaLOG/ADMELOG) 100 units/mL injection 1-6 Units 1-6 Units, Subcutaneous, 3 times daily with meals, First dose on Ally 02/15/24 at 0800, DO NOT HOLD IF NPO Notify provider if Blood Glucose LESS than 70 For BG 141-180 administer 1 unit For BG 181-220 administer 2 units For BG 221-260 administer 3 units For BG 261-300 administer 4 units For BG 301-340 administer 5 units For BG MORE than 340, administer 6 units AND notify provider 0739 (Given - Provider: Juan David Cristina RN)1143 (Not Given - Provider: Brody Velasquez RN - Reason: Dose held per order parameters)1654 (Not Given - Provider: Phyllis Franco RN - Reason: Dose held per order parameters) 0800 (Due)1200 (Due)1700 (Due) PANTOprazole (PROTONIX) EC tablet 40 mg 40 mg, Oral, 2 times daily, First dose on Ally 02/15/24 at 0900, *DO NOT CHEW OR CRUSH* 0735 (Given - Provider: Juan David Cristina, MARY)2100 (Due) 0900 (Due)2100 (Due) thiamine mononitrate (VITAMIN B-1) tablet 200 mg 200 mg, Oral, Daily, First dose on Ally 02/15/24 at 0900 0735 (Given - Provider: Juan David Critsina, MARY) 0900 (Due) Continuous Medication Order 02/14/2024 02/15/2024 02/16/2024 lactated ringers (LR) infusion 75 mL/hr, Intravenous, Continuous, Starting on Ally 02/15/24 at 0309 0517 (New Bag - Provider: Brooke Peña RN) PRN Medication Order 02/14/2024 02/15/2024 02/16/2024 acetaminophen (TYLENOL) tablet 975 mg 975 mg, Oral, Every 6 hours PRN, mild pain 1-3, fever greater than 101.5, Starting on Ally 02/15/24 at 0313, May use for pain when patient is tolerating PO 1633 (Given - Provider: Phyllis Franco RN) dextrose 50 % solution 12.5 g(Linked Group 1) 12.5 g, Intravenous, Every 15 min PRN, low blood sugar, between 50 and 69 mg/dL, Starting on Ally 02/15/24 at 0310, For patient with IV access who is NPO or unable to swallow. See Hypoglycemia Management guideline. dextrose 50 % solution 25 g(Linked Group 1) 25 g, Intravenous, Every 15 min PRN, low blood sugar, less than 50 mg/dL, Starting on Ally 02/15/24 at 0310, For patient with IV access who is NPO or unable to swallow. See Hypoglycemia Management guideline. glucagon (GLUCAGEN) injection 1 mg(Linked Group 1) 1 mg, Intramuscular, Daily PRN, low blood sugar, for Blood Glucose LESS than 70 mg/dL and NPO and no IV access, Starting on Ally 02/15/24 at 0310, Glucagon may be repeated x 1 (for a total of 2 doses per hypoglycemic event) if patient remains hypoglycemic after first dose. Do not use with hepatic disease or alcohol intoxication. See Hypoglycemia Management guideline. Reconstitute vial with 1 mL sterile water for injection. glucose (GLUTOSE 15) 40 % oral gel 37.5 g(Linked Group 1) 37.5 g (1 Tube), Oral, Every 15 min PRN, low blood sugar, between 50 and 69 mg/dL, Starting on Ally 02/15/24 at 0310, Juice or soda is preferred for alert patients (4 oz juice or 6 oz soda). Use glucose gel for patients with fluid restriction. See Hypoglycemia Management guideline. Each 37.5 gram tube of glucose 40 % = 15 grams of glucose. glucose (GLUTOSE 15) 40 % oral gel 75 g(Linked Group 1) 75 g (2 Tube), Oral, Every 15 min PRN, low blood sugar, less than 50 mg/dL, Starting on Ally 02/15/24 at 0310, Juice or soda is preferred for alert patients (8 oz juice or 12 oz soda). Use glucose gel for patients with fluid restriction. See Hypoglycemia Management guideline. Each 37.5 gram tube of glucose 40 % = 15 grams of glucose. HYDROmorphone (DILAUDID) injection 0.2 mg 0.2 mg, Intravenous, Every 4 hours PRN, severe to excruciating pain 7-10, Starting on Ally 02/15/24 at 1233, For 158 hours 1519 (Given - Provider: Phyllis Franco RN)1928 (Given - Provider: Phyllis Franco RN) HYDROmorphone (DILAUDID) injection 0.5 mg (CANCELED) 0.5 mg, Intravenous, Every 4 hours PRN, severe to excruciating pain 7-10, Starting on Ally 02/15/24 at 0308, For 7 days 0335 (Given - Provider: Miguel Ángel Peña RN)0736 (Given - Provider: Juan David Cristina, MARY)1154 (Given - Provider: Brody Velasquez RN) hydrOXYzine HCl (ATARAX) tablet 10 mg 10 mg, Oral, Every 6 hours PRN, anxiety, Starting on Ally 02/15/24 at 0311 ondansetron (ZOFRAN) injection 4 mg 4 mg, Intravenous, Every 6 hours PRN, nausea, vomiting, Starting on Ally 02/15/24 at 0308 0427 (Hold - Provider: Dominique Peña RN - Reason: Dose held per order parameters)0823 (Given - Provider: Vero Hollis, RN)1604 (Given - Provider: Pyhllis Franco RN) Linked Groups Order Group 1: glucose (GLUTOSE 15) 40 % oral gel 37.5 gJump to med 37.5 g (1 Tube), Oral, Every 15 min PRN, low blood sugar, between 50 and 69 mg/dL, Starting on Ally 02/15/24 at 0310, Juice or soda is preferred for alert patients (4 oz juice or 6 oz soda). Use glucose gel for patients with fluid restriction. See Hypoglycemia Management guideline. Each 37.5 gram tube of glucose 40 % = 15 grams of glucose. Or glucose (GLUTOSE 15) 40 % oral gel 75 gJump to med 75 g (2 Tube), Oral, Every 15 min PRN, low blood sugar, less than 50 mg/dL, Starting on Ally 02/15/24 at 0310, Juice or soda is preferred for alert patients (8 oz juice or 12 oz soda). Use glucose gel for patients with fluid restriction. See Hypoglycemia Management guideline. Each 37.5 gram tube of glucose 40 % = 15 grams of glucose. Or dextrose 50 % solution 12.5 gJump to med 12.5 g, Intravenous, Every 15 min PRN, low blood sugar, between 50 and 69 mg/dL, Starting on Ally 02/15/24 at 0310, For patient with IV access who is NPO or unable to swallow. See Hypoglycemia Management guideline. Or dextrose 50 % solution 25 gJump to med 25 g, Intravenous, Every 15 min PRN, low blood sugar, less than 50 mg/dL, Starting on Ally 02/15/24 at 0310, For patient with IV access who is NPO or unable to swallow. See Hypoglycemia Management guideline. Or glucagon (GLUCAGEN) injection 1 mgJump to med 1 mg, Intramuscular, Daily PRN, low blood sugar, for Blood Glucose LESS than 70 mg/dL and NPO and no IV access, Starting on Ally 02/15/24 at 0310, Glucagon may be repeated x 1 (for a total of 2 doses per hypoglycemic event) if patient remains hypoglycemic after first dose. Do not use with hepatic disease or alcohol intoxication. See Hypoglycemia Management guideline. Reconstitute vial with 1 mL sterile water for injection. Care Teams (unrecognized sec tion and content) Senior Biostatistician/Group Leader Relationship Specialty Start Date End Date Dariusz Garcia PA [address] [place] [id number] PCP - General 12/14/19 Senior Biostatistician/Group Leader Relationship Specialty Start Date End Date DolandDariusz PA [address] [place] [id number] PCP - General 12/14/19 This clinical document has been generated using [employer] software that has been certified by the Office of the National Coordinator for Health Information Technology (ONC 15.99.04.3023.Diam.31.00.0.306905) and the National Committee for Nutrition Consultant (NCQA, as an eMeasure certified technology). FOR RECORDS PERTAINING TO PATIENTS WHO ARE OR HAVE BEEN ENROLLED IN A CHEMICAL DEPENDENCY/SUBSTANCEABUSE PROGRAM, SOME INFORMATION MAY BE OMITTED. This clinical summary was aggregated from multiple sources. Caution should be exercised in using it in the provision of clinical care. This summary normalizes information from multiple sources, and as a consequence, information in this document may materially change the coding, format and clinical context of patient data. In addition, data may be omitted in some cases. CLINICAL DECISIONS SHOULD BE BASED ON THE PRIMARY CLINICAL RECORDS. [employer] provides no warranty or guarantee of the accuracy or completeness of information in this document.The following information is based on time limited clinical information
--- OUTSIDE RECORDS SUMMARY | 2024-05-26 12:32 | XMS_ITS ---
Author Organization [facility] Care Team Providers Care [employer] Material [employer] Name Role Phone CANDICE HENRY Unavailable Unavailable PC, IP USE ONLY - [place] [facility] Unavailable Unavailable JAIMIE BILLINGS Unavailable Unavailable [...] s Papa Suazo Jr., MD Work Phone: [facility] Work Phone: Encounters Encounter Date Encounter Type Encounter Diagnosis Care Provider Facility Start: 02-15-2024 05:08-0400 [facility] Start: 02-14-2024 12:00-0400 Emergency department patient visit Flank pain ORAL ALVARADO [facility] Start: 02-14-2024 12:00-0400 End: 02-16-2024 04:23-0400 Evaluation and management of inpatient Acute kidney failure, unspecified CANDICE Deleon MD Work Phone: Peter Alvarado MD Work Phone: Jaimie Billings MD Work Phone: Osvaldo Parks MD Work Phone: Candice Henry MD Work Phone: [facility] Comment on above: JONNY (acute kidney injury) (HCC) (Primary Dx); Pancreatitis; Gastroparesis Start: 01-13-2024 02:46-0400 End: 01-13-2024 10:48-0400 Emergency department patient visit Flank pain OPAL Hernandez MD Work Phone: [facility] Comment on above: Flank pain (Primary Dx) Emergency department patient visit OPAL Sil [facility] End: 02-16-2024 04:23-0400 Evaluation and management of inpatient [facility] Evaluation and management of inpatient OSVALDOCisco PARKS [facility] Medications Current Medications Medication Drug Class(es) [...] 5 mg Payers Date Payer Normalized Payer [id number] 12-13-2019 [facility] Unavailable / Unknown [id number] 12-13-2019 [facility] Unavailable / Unknown [id number] Plan of Treatment Date Care Activity Detail Author Start: 02-14-2025 Creatinine with GFR Creatinine with GFR [facility] Start: 08-15-2024 Hemoglobin A1c measurement Hemoglobin A1C [facility] Start: 01-14-2024 COVID-19 Vaccine ( season) COVID-19 Vaccine ( season) [facility] Start: 12-14-2023 Administration of influenza vaccine Influenza Vaccine [facility] Start: 01-13-2023 COVID-19 Vaccine ( season) COVID-19 Vaccine ( season) [facility] Start: 12-30-2020 Creatinine with GFR Creatinine with GFR [facility] Start: 12-13-2020 Lipid 1996 panel - S kasandra or Plasma Lipid Panel [facility] Start: 06-16-2020 Hemoglobin A1c measurement Hemoglobin A1C [facility] Start: 2005 Microscopic observat ion [Identifier] in Cervix by Cyto stain Pap Smear (Ages 21-65) [facility] Start: 2003 DTaP/Tdap/Td Vaccine s (1 - Tdap) DTaP/Tdap/Td Vaccines (1 - Tdap) [facility] Start: 2003 Hepatitis B Vaccines (1 of 3 - 19+ 3-dose series) Hepatitis B Vaccines (1 of 3 - 19+ 3-dose series) [facility] Start: 2002 Chronic Controlled Substance Toxicology Screening Chronic Controlled Substance Toxicology Screening [facility] Start: 2002 Chronic Controlled Substance User PDMP Review Chronic Controlled Substance User PDMP Review [facility] Start: 2002 Controlled Substance Agreement Initial and Annual Review Controlled Substance Agreement Initial and Annual Review [facility] Start: 2002 Microalbumin/Creatin ine Ratio Urine Microalbumin/Creatinine Ratio Urine [facility] Start: 1997 HIV Screening HIV Screening [facility] Start: 1994 3 comp foot exam completed Foot Exam [facility] Start: 1994 Ophthalmic examinati on and evaluation Ophthalmology Exam [facility] Start: 1990 Pneumococcal Vaccine : Pediatric (0-5 Years) and At-Risk Patients (6 to 64 Years) (1 of 2 - PCV) Pneumococcal Vaccine: Pediatric (0-5 Years) and At-Risk Patients (6 to 64 Years) (1 of 2 - PCV) [facility] Start: 1984 Hepatitis C screening Hepatiti s C Virus Screening [facility] End: 02-16-2024 Basic metabolic 2000 panel - Serum or Plasma Basic Metabolic Panel (Routine) Lab Routine AM Draw for 1 Occurrences starting 02/16/2024 until 02/16/2024 [facility] Comment on above: AM Draw for 1 Occurr ences starting 02/16/2024 until 02/16/2024 End: 02-16-2024 Complete Blood Count WITHOUT Differential - in AM Complete Blood Count WITHOUT Differential - in AM Lab Routine AM Draw for 1 Occurrences starting 02/16/2024 until 02/16/2024 [facility] Comment on above: AM Draw for 1 Occurr ences starting 02/16/2024 until 02/16/2024 End: 02-16-2024 Hepatic function 2000 panel - Serum or Plasma Hepatic Function Panel (AM) Lab Routine AM Draw for 1 Occurrences starting 02/16/2024 until 02/16/2024 [facility] Comment on above: AM Draw for 1 Occurr ences starting 02/16/2024 until 02/16/2024 End: 02-16-2024 Magnesium [Mass/volume] in Serum or Plasma Magnesium (AM) Lab Routine AM Draw for 1 Occurrences starting 02/16/2024 until 02/16/2024 [facility] Comment on above: AM Draw for 1 Occurr ences starting 02/16/2024 until 02/16/2024 End: 02-16-2024 Triglyceride [Mass/volume] in Serum or Plasma Triglycerides Lab Routine AM Draw for 1 Occurrences starting 02/16/2024 until 02/16/2024 [facility] Work Phone: Comment on above: AM Draw for 1 Occurr ences starting 02/16/2024 until 02/16/2024 End: 01-13-2024 URINALYSIS W/ REFLEX TO MICROSCOPIC AND CULTURE Urinalysis with Reflex to Microscopic and Culture Lab Routine STAT for 1 Occurrences starting 01/13/2024 until 01/13/2024 [facility] Work Phone: Comment on above: STAT for 1 Occurrenc es starting 01/13/2024 until 01/13/2024 End: 02-15-2024 US Abdomen-Complete US Abdomen-Complete Imaging Routine One time imaging One time imaging for 1 Occurrences starting 02/15/2024 until 02/15/2024 [facility] Comment on above: One time imaging One [...] [Acute kidney failure, unspecified] 02-15-2024 Episodic [facility] Other disorders of stomach and duodenum (3 sources) Gastroparesis; Translations: [Gastroparesis] 02-16-2024 [facility] Other disorders of stomach and duodenum (3 sources) Gastroparesis; Translations: [Gastroparesis] 02-16-2024 [facility] Pancreatic disorders (not diabetes) (8 sources) Acute [...] Overview: Added automatically from request for surgery [id number] Deficiency and other anemia (2 sources) Anemia; [...] 10-0 Glucose [Mass/Vol] 188 High 65-99 mg/dL [facility] 02-14 07:42 -0400 (L) Fasting: <100 mg/dL, Non-Fasting: <200 mg/dL (ADA 2005) Urea nitrogen [Mass/Vol] 30 High 8-21 mg/dL [facility] 02-14 07:42 -0400 Creatinine [Mass/Vol] 2.3 High 0.4-1.1 mg/dL [facility] 02-14 07:42 -0400 GFR/1.73 sq M.predicted CKD-EPI (S/P/Bld) [Vol rate/Area] 27 Low 59 - PINF [facility] 02-14 07:42 -0400 <tr><td>eGFR</t d><td><content> 27</content><co ntent> (L)</content></ td><td>>59</td> <td></td><td> 7:42 AM EDT</td><td>[facility]</td><t d></td></tr> Comment on above: CKD-EPI (2020) in mL/min/1.73 sq meters. Sodium [Moles/Vol] 136 136-145 mmol/L [facility] 02-14 07:42 -0400 Potassium [Moles/Vol] 3.4 3.4-5.3 mmol/L [facility] 02-14 07:42 -0400 Chloride [Moles/Vol] 96 Low 98-107 mmol/L [facility] 02-14 07:42 -0400 CO2 [Moles/Vol] 27 22-33 mmol/L [facility] 02-14 07:42 -0400 Anion gap (Bld) [Moles/Vol] 13 7 - 17 [facility] 02-14 07:42 -0400 <tr><td>Anion Gap</td><td>13< /td><td>7 - 17</td><td></td ><td>02/15/2024 7:42 AM EDT</td><td>[facility]</td><t d></td></tr> Calcium [Mass/Vol] 8.9 8.7-10.5 mg/dL [facility] 02-14 07:42 -0400 Urea nitrogen/Creat inine [Mass ratio] 13 [facility] 02-14 07:42 -0400 <tr><td>BUN/Cre atinine Ratio</td><td>1 3</td><td>10.0 - 25.0 Ratio</td><td>< /td><td> 7:42 AM EDT</td><td>[facility]</td><t d></td></tr> Basic Metabolic Panelon 10-0 Glucose [Mass/Vol] 188 mg/dL High 65 - 99 mg/dL [facility] 02-14 07:42 -0400 Glucose 188 (H) 65 - 99 mg/dL 02/15/2024 7:42 AM [facility] Comment on above: Fasting: <100 mg/dL, Non-Fasting: <200 m g/dL (ADA 2005) Urea nitrogen [Mass/Vol] 30 mg/dL High 8 - 21 mg/dL [facility] 02-14 07:42 -0400 Blood Urea Nitrogen (BUN) 30 (H) 8 - 21 mg/dL 02/15/2024 7:42 AM [facility] Creatinine [Mass/Vol] 2.3 mg/dL High 0.4 - 1.1 mg/dL [facility] 02-14 07:42 -0400 Creatinine 2.3 (H) 0.4 - 1.1 mg/dL 02/15/2024 7:42 AM [facility] Sodium [Moles/Vol] 136 mmol/L 136 - 145 mmol/L [facility] 02-14 07:42 -0400 Sodium 136 136 - 145 mmol/L 02/15/2024 7:42 AM EDT [facility] Potassium [Moles/Vol] 3.4 mmol/L 3.4 - 5.3 mmol/L [facility] 02-14 07:42 -0400 Potassium 3.4 3.4 - 5.3 mmol/L 02/15/2024 7:42 AM EDT [facility] Chloride [Moles/Vol] 96 mmol/L Low 98 - 107 mmol/L [facility] 02-14 07:42 -0400 Chloride 96 (L) 98 - 107 mmol/L 02/15/2024 7:42 AM T [facility] CO2 [Moles/Vol] 27 mmol/L 22 - 33 mmol/L [facility] 02-14 07:42 -0400 CO2 27 22 - 33 mmol/L 02/15/2024 7:42 AM T [facility] Calcium [Mass/Vol] 8.9 mg/dL 8.7 - 10.5 mg/dL [facility] 02-14 07:42 -0400 Calcium 8.9 8.7 - 10.5 mg/dL 02/15/2024 7:42 AM T [facility] CT Abdomen+pelvis w/o contra ston 02-15-2024 Radiology Study observation (narrative) [facility] No acute findings. Interpreted by: Jose Self MD Vector Control Assistant I personally reviewed the images and the resident's preliminary report and AGREE with the report as it is now presented (RADPAL1). [facility] 02-14 08:13 -0400 No acute findings. Interpreted by: Jose Self MD Vector Control Assistant I personally reviewed the images and the [...] OSSEOUS: No acute or suspicious osseous findings. L[facility]PSTER 02-14 08:13 0400 EXAMINATION: CT ABDOMEN AND [...] acute findings. Interpreted by: Jose Self MD Vector Control Assistant I personally reviewed the images and the resident's preliminary report and AGREE with the report as it is now presented (RADPAL1). [facility] 02-14 08:91 -7225 Daniel Henry MD - 02/15/2024 EXAMINATION: CT [...] acute findings. Interpreted by: Jose Self MD Vector Control Assistant I personally reviewed the images and the resident's preliminary report and AGREE with the report as it is now presented (RADPAL1). CT Abdomen+pelvis w/o contra stOrdered By: Daniel Henry on 02-15-2024 [facility] Work Phone: 02-14 08:13 -0400 Creat Ur-mCncon 02-15-2024 Creatinine (U) [Mass/Vol] 426 mg/dL [facility] 02-14 03:51 -0400 (L) Reference range not established for random specimen. Creatinine, Urine, Randomon 02-15-2024 Creatinine (U) [Mass/Vol] 426 mg/dL [facility] 02-14 03:51 -0400 Creatinine, Urine, Random 426 mg/dL 02/15/2024 3:51 AM EDT [facility] Comment on above: Reference range not established for rand om specimen. ECG 12 leadOrdered By: Marta Franco on 02-15-2024 Ventricular rate 100 BPM [facility] Work Phone: 02-14 07:39 -0400 Ventricular rate 100 BPM EKG [facility] Atrial rate 100 BPM [facility] Work Phone: 02-14 07:39 -0400 Atrial rate 100 BPM EKG [facility] QRS duration 80 ms [facility] Work Phone: 02-14 07:39 -0400 QRS duration 80 ms EKG [facility] QTC calculation (Bazett) 491 ms [facility] Work Phone: 02-14 07:39 -0400 QTC calculation (Bazett) 491 ms EKG [facility] P axis 62 degrees [facility] Work Phone: 02-14 07:39 -0400 P axis 62 degrees EKG [facility] R axis -16 degrees [facility] Work Phone: 02-14 07:39 -0400 R axis -16 degrees EKG [facility] T axis 36 degrees [facility] Work Phone: 02-14 07:39 -0400 T axis 36 degrees EKG [facility] Work Phone: 02-14 07:39 -0400 ECG 12 leadon 02-15-2024 Poor data quality, interpretation may be adversely affected Sinus rhythm with short TX Left axis deviation Pulmonary disease pattern Septal infarct , age undetermined ST & T wave abnormality, consider lateral ischemia Abnormal ECG When compared with ECG of 13-Jan-2024 02:58, Septal infarct is now Present Nonspecific T wave abnormality now evident in Lateral leads Confirmed by MD Joan, Marta (42) on 02/15/2024 7:39:07 AM EKG [facility] 02-14 07:39 -0400 Poor data quality, interpretation may be adversely affected Sinus rhythm with short TX Left axis deviation Pulmonary disease pattern Septal [...] be adversely affected Sinus rhythm with short TX Left axis deviation Pulmonary disease pattern Septal infarct , age undetermined ST & T wave abnormality, consider lateral ischemia Abnormal ECG When compared with ECG of 13-Jan-2024 02:58, Septal infarct is now Present Nonspecific T wave abnormality now evident in Lateral leads Confirmed by MD Franco Komsu (42) on 02/15/2024 7:39:07 AM [facility] 02-14 07:39 -0400 Marta Franco MD - 02/15/2024 Poor data quality, interpretation may be adversely affected Sinus rhythm with short TX Left axis deviation Pulmonary disease pattern Septal infarct , age undetermined ST & T wave abnormality, consider lateral ischemia Abnormal ECG When compared with ECG of 13-Jan-2024 02:58, Septal infarct is now Present Nonspecific T wave abnormality now evident in Lateral leads Confirmed by MD Franco Komsu (42) on 02/15/2024 7:39:07 AM Ventricular rate 79 BPM [facility] 02-14 12:53 -0400 Ventricular rate 79 BPM EKG [facility] Atrial rate 79 BPM [facility] 02-14 12:53 -0400 Atrial rate 79 BPM EKG [facility] QRS duration 94 ms [facility] 02-14 12:53 -0400 QRS duration 94 ms EKG [facility] QTC calculation (Bazett) 482 ms [facility] 02-14 12:53 -0400 QTC calculation (Bazett) 482 ms EKG [facility] P axis 69 degrees [facility] 02-14 12:53 -0400 P axis 69 degrees EKG [facility] R axis -29 degrees [facility] 02-14 12:53 -0400 R axis -29 degrees EKG [facility] T axis 32 degrees [facility] 02-14 12:53 -0400 T axis 32 degrees EKG [facility] Suspect unspecified pacemaker failure Normal sinus rhythm Possible Left atrial enlargement Septal infarct (cited on or before 15-Feb-2024) Abnormal ECG When compared with ECG of 15-Feb-2024 00:54, (unconfirmed) Questionable change in initial forces of Septal leads ST no longer depressed in Anterior leads Confirmed by MD Franco Komsu (42) on 02/15/2024 12:52:56 PM EKG [facility] 02-14 12:53 -0400 Suspect unspecified pacemaker failure [...] Franco Komsu (42) on 02/15/2024 12:52:56 PM [facility] 02-14 12:53 -0400 Marta Franco MD - 02/15/2024 Suspect unspecified pacemaker failure Normal sinus rhythm Possible Left atrial enlargement Septal infarct (cited on or before 15-Feb-2024) Abnormal ECG When compared with ECG of 15-Feb-2024 00:54, (unconfirmed) Questionable change in initial forces of Septal leads ST no longer depressed in Anterior leads Confirmed by MD Franco Komsu (42) on 02/15/2024 12:52:56 PM [facility] 02-14 12:53 -0400 Hemoglobin A1C with Estimate d Average Glucoseon 02-15-2024 HbA1c (Bld) [Mass fraction] 6.2 High <5.7 % [facility] 02-14 07:35 -0400 (L) A1c% Interpretation~ 5.7 - 6.0 Increase risk of diabetes~6.1 - 6.4 Higher risk of diabetes~> or = 6.5 Consistent with diabetes~ ~Diabetes Care, 33(Supp 1):S1-S62009 Average glucose Estimated from glycated hemoglobin (Bld) [Mass/Vol] 131 mg/dL [facility] 02-14 07:35 -0400 Hemoglobin A1c with Estimate d Average Glucoseon 02-15-2024 HbA1c (Bld) [Mass fraction] 6.2 % High NINF - 5.7 % [facility] 02-14 07:35 -0400 Hemoglobin A1C 6.2 (H) <5.7 % 02/15/2024 7:35 AM [facility] Comment on above: A1c% Interpretation 5.7 - 6.0 Increase risk of diabetes 6.1 - 6.4 Higher risk of diabetes > or = 6.5 Consistent with diabetes Diabetes Care, 33(Supp 1):S1-S61, 2009 Average glucose Estimated from glycated hemoglobin (Bld) [Mass/Vol] 131 mg/dL [facility] 02-14 07:35 -0400 Estimated Average Glucose 131 mg/dL 02/15/2024 7:35 AM [facility] Interpretation and review of laboratory results Abnormal [facility] 02-14 07:35 -0400 [facility] 02-14 07:35 -0400 Osmolality Uron 02-15-2024 Osmolality (U) [Osmolality] 366 [facility] 02-14 11:51 -0400 <tr><td>Osmolal ity, Urine</td><td>3 66</td><td>50 - 1,200 mOsm/Kg</td><td ></td><td>02/14 11:51 AM EDT</td><td>[facility]</td><td> </td></tr> POC Glucoseon 02-15-2024 Glucose [Mass/Vol] 117 mg/dL High 65-99 mg/dL [facility] 02-14 16:47 -0400 Glucose [Mass/Vol] 132 mg/dL High 65-99 mg/dL [facility] 02-14 20:32 -0400 Glucose [Mass/Vol] 93 mg/dL 65-99 mg/dL [facility] 02-14 11:39 -0400 Glucose [Mass/Vol] 118 mg/dL High 65-99 mg/dL [facility] 02-14 03:24 -0400 Glucose [Mass/Vol] 173 mg/dL High 65-99 mg/dL [facility] 02-14 07:21 -0400 [facility] 02-[facility]2024 Glucose (Bld) [Mass/Vol] 118 mg/dL High 65 - 99 mg/dL [facility] 02-14 03:24 -0400 POC Glucose 118 (H) 65 - 99 mg/dL 02/15/2024 3:24 AM EDT Interpretation and review of laboratory results Abnormal [facility] 02-14 03:24 -0400 Glucose (Bld) [Mass/Vol] 173 mg/dL High 65 - 99 mg/dL [facility] 02-14 07:21 -0400 POC Glucose 173 (H) 65 - 99 mg/dL 02/15/2024 7:21 AM EDT Glucose (Bld) [Mass/Vol] 93 mg/dL 65 - 99 mg/dL [facility] 02-14 11:40 -0400 POC Glucose 93 65 - 99 mg/dL 02/15/2024 11:39 AM EDT Glucose (Bld) [Mass/Vol] 117 mg/dL High 65 - 99 mg/dL [facility] 02-14 16:47 -0400 POC Glucose 117 (H) 65 - 99 mg/dL 02/15/2024 4:47 PM EDT Interpretation and review of laboratory results Abnormal [facility] 02-14 16:47 -0400 [facility] 02-14 16:47 -0400 Glucose (Bld) [Mass/Vol] 132 mg/dL High 65 - 99 mg/dL [facility] 02-14 20:32 -0400 POC Glucose 132 (H) 65 - 99 mg/dL 02/15/2024 8:32 PM EDT Interpretation and review of laboratory results Abnormal [facility] 02-14 20:32 -0400 [facility] 02-14 20:32 -0400 POCT , UrineOrdered By: Ely Hooper on 02-15-2024 Preg Test, Ur Negative [facility] Work Phone: 02-14 01:38 -0400 Preg Test, Ur Negative Lot Number 0 [facility] Work Phone: 02-14 01:38 -0400 Lot Number 0 Manager Style Pass [facility] Work Phone: 02-14 01:38 -0400 Manager Style Pass Interpretation and review of laboratory results Normal [facility] Work Phone: 02-14 01:38 -0400 Sodium Ur-sCncon 02-15-2024 Sodium (U) [Moles/Vol] 32 mmol/L [facility] 02-14 03:51 -0400 (L) Reference range not established for random specimen. Sodium, Urine, Randomon Sodium (U) [Moles/Vol] 32 mmol/L [facility] 02-14 03:51 -0400 Sodium, Urine Random 32 mmol/L 02/15/2024 3:51 AM EDT [facility] Comment on above: Reference range not established for rand om specimen. Urinalysis reflex Microscopi c and Cultureon 02-15-2024 Color (U) [facility] 02-14 01:40 -0400 <tr><td>Color</ td><td>Yellow</ td><td></td><td ></td><td>02/14 1:40 AM EDT</td><td>[facility]</td><t d></td></tr> Clarity (U) Slightly cloudy [facility] 02-14 01:40 -0400 <tr><td>Clarity </td><td>Slight ly cloudy</td><td> </td><td></td>< td>02/15/2024 1:40 AM EDT</td><td>[facility]</td><t d></td></tr> Specific gravity Test strip (U) [Rel density] 1.018 1.003 - 1.030 [facility] 02-14 01:40 0400 <tr><td>Specifi c [place]</td><td >1.018</td><td> 1.003 - 1.030</td><td>< /td><td> 024 1:40 AM EDT</td><td>[facility]</td><t d></td></tr> pH Test strip (U) 5.0 5.0 - 8.0 [facility] 02-14 01:40 0400 <tr><td>pH</td> <td>5.0</td><td >5.0 - 8.0</td><td></t d><td> 1:40 AM EDT</td><td>[facility]</td><t d></td></tr> Leukocyte esterase Test strip Ql (U) Negative Negative [facility] 02-14 01:40 0400 <tr><td>Leukocy te Esterase</td><t d>Negative</td> <td>Negative</t d><td></td><td> 02/15/2024 1:40 AM EDT</td><td>[facility]</td><t d></td></tr> Nitrite Test strip Ql (U) Negative Negative [facility] 02-14 01:40 0400 <tr><td>Nitrite </td><td>Negati ve</td><td>Nega tive</td><td></ td><td>02/15/20 24 1:40 AM EDT</td><td>[facility]</td><t d></td></tr> Protein Test strip (U) [Mass/Vol] Small (30 mg/dL) Abnormal Negative [facility] 02-14 01:40 -0400 <tr><td>Protein </td><td><lauren nt>Small (30 mg/dL)</content ><content> (A)</content></ td><td>Negative </td><td></td>< td>02/15/2024 1:40 AM EDT</td><td>[facility]</td><t d></td></tr> Glucose Test strip (U) [Mass/Vol] 0 0-99 mg/dL [facility] 02-14 01:40 -0400 Ketones Test strip (U) [Mass/Vol] Negative [facility] 02-14 01:40 -0400 <tr><td>Ketones </td><td>Negati ve</td><td>Nega tive</td><td></ td><td>02/15/20 24 1:40 AM EDT</td><td>[facility]</td><t d></td></tr> Hemoglobin Test strip Ql (U) Negative [facility] 02-14 01:40 -0400 <tr><td>Blood</ td><td>Negative </td><td>Negati ve</td><td></td ><td>02/15/2024 1:40 AM EDT</td><td>[facility]</td><t d></td></tr> Bilirubin Test strip (U) [Mass/Vol] Negative [facility] 02-14 01:40 -0400 <tr><td>Bilirub in</td><td>Nega tive</td><td>Ne gative</td><td> </td><td>2023 1:40 AM EDT</td><td>[facility]</td><t d></td></tr> WBC LM.HPF (Urine sed) [#/Area] 1 [facility] 02-14 01:41 -0400 <tr><td>WBC</td ><td>1</td><td> 0 - 4 per hpf</td><td></t d><td> 4 1:41 AM EDT</td><td>[facility]</td><t d></td></tr> RBC LM.HPF (Urine sed) [#/Area] 2 [facility] 02-14 01:41 -0400 <tr><td>RBC</td ><td>2</td><td> 0 - 4 per hpf</td><td></t d><td> 4 1:41 AM EDT</td><td>[facility]</td><t d></td></tr> Epithelial cells.squamous LM.HPF (Urine sed) [#/Area] 5 PER HPF [facility] 02-14 01:41 -0400 <tr><td>Squamou s Epithelial Cells</td><td>5 </td><td>PER HPF</td><td></t d><td> 4 1:41 AM EDT</td><td>[facility]</td><t d></td></tr> Hyaline casts LM.LPF (Urine sed) [#/Area] 11 [facility] 02-14 01:41 -0400 <tr><td>Hyaline Casts</td><td>< content>11</con tent><content> (H)</content></ td><td>0 - 4 PER LPF</td><td></t d><td> 4 1:41 AM EDT</td><td>[facility]</td><t d></td></tr> Urinalysis with Reflex to Mi croscopic and Cultureon 02-15-2024 Glucose Test strip (U) [Mass/Vol] 0 mg/dL 0 - 99 mg/dL [facility] 02-14 01:41 -0400 Glucose 0 0 - 99 mg/dL 02/15/2024 1:40 AM EDT [facility] Interpretation and review of laboratory results Abnormal [facility] 02-14 01:41 -0400 B-Hydroxybutyrateon 02-14-20 Beta hydroxybutyrat e [Moles/Vol] 0.12 mmol/L NINF - 0.28 mmol/L [facility] 02-14 03:42 -0400 B-Hydroxybutyra te 0.12 <0.28 mmol/L 02/15/2024 3:42 AM EDT [facility] Comment on above: In the presence of uncontrolled diabetes , serum beta-hydroxybutyrate levels greater than or equal to 3.80 mmol/L (patients age 16 and over) or greater than or equal to 3.00 mmol/L (patients under age 16) support a clinical diagnosis of Diabetic Ketoacidosis (DKA) - Ref: [facility] 31: 643 (2008). B-OH-Butyr SerPl-sCncon Beta hydroxybutyrat e [Moles/Vol] 0.12 <0.28 mmol/L [facility] 02-14 03:42 -0400 (L) In the presence of uncontrolled diabetes, serum beta-hydroxybut yrate levels greater than or equal to 3.80 mmol/L (patients age 16 and over) or greater than or equal to 3.00 mmol/L (patients under age 16) support a clinical diagnosis of Diabetic Ketoacidosis (DKA) - Ref: [facility] 31: 643 (2008). CBC, with Differentialon WBC Auto (Bld) [#/Vol] 7.7 [facility] 02-13 22:17 -0400 <tr><td>White Blood Cell Count</td><td>7 .7</td><td>4.0 - 11.0 Thou/uL</td><td ></td><td>02/13 10:17 PM EDT</td><td>[facility]</td><t d></td></tr> Platelets Auto (Bld) [#/Vol] 406 [facility] 02-13 22:17 -0400 <tr><td>Platele t Count</td><td>4 06</td><td>150 - 450 Thou/uL</td><td ></td><td>02/13 10:17 PM EDT</td><td>[facility]</td><t d></td></tr> Hemoglobin (Bld) [Mass/Vol] 8.5 Low 11.7-15.7 g/dL [facility] 02-13 22:17 -0400 Hematocrit Auto (Bld) [Volume fraction] 27.9 Low 35.0-47.0 % [facility] 02-13 22:17 -0400 RBC Auto (Bld) [#/Vol] 3.57 Low [facility] 02-13 22:17 -0400 <tr><td>Red Blood Cell Count</td><td>< content>3.57</c ontent><content > (L)</content></ td><td>4.00 - 5.40 Mil/uL</td><td> </td><td>2023 10:17 PM EDT</td><td>[facility]</td><t d></td></tr> MCV Auto (RBC) [Entitic vol] 78 Low 80-100 fL [facility] 02-13 22:17 -0400 MCH Auto (RBC) [Entitic mass] 23.8 Low 26.0-34.0 pg [facility] 02-13 22:17 -0400 MCHC Auto (RBC) [Mass/Vol] 30.5 30.0-36.0 g/dL [facility] 02-13 22:17 -0400 Erythrocyte distribution width Auto (RBC) [Ratio] 17.8 High 11.5-14.5 % [facility] 02-13 22:17 -0400 Platelet mean volume Auto (Bld) [Entitic vol] 9.5 7.5-12.5 fL [facility] 02-13 22:17 -0400 Neutrophils/10 0 WBC Auto (Bld) 62.8 % [facility] 02-13 22:17 -0400 Immature granulocytes/1 00 WBC Auto (Bld) 0.3 % [facility] 02-13 22:17 -0400 Lymphocytes/10 0 WBC Auto (Bld) 26.3 % [facility] 02-13 22:17 -0400 Monocytes/100 WBC Auto (Bld) 7.7 % [facility] 02-13 22:17 -0400 Eosinophils/10 0 WBC Auto (Bld) 2.1 % [facility] 02-13 22:17 -0400 Basophils/100 WBC Auto (Bld) 0.8 % [facility] 02-13 22:17 -0400 Neutrophils Auto (Bld) [#/Vol] 4.85 [facility] 02-13 22:17 -0400 <tr><td>Abs Neutrophils Auto</td><td>4. 85</td><td>2.00 - 7.50 Thou/uL</td><td ></td><td>02/13 10:17 PM EDT</td><td>[facility]</td><t d></td></tr> Immature granulocytes Auto (Bld) [#/Vol] 0.02 [facility] 02-13 22:17 -0400 <tr><td>Abs Immature Granulocytes</t d><td>0.02</td> <td>0.00 - 0.10 Thou/uL</td><td ></td><td>02/13 10:17 PM EDT</td><td>[facility]</td><t d></td></tr> Lymphocytes Auto (Bld) [#/Vol] 2.03 [facility] 02-13 22:17 -0400 <tr><td>Abs Lymphocytes Auto</td><td>2. 03</td><td>1.50 - 4.50 Thou/uL</td><td ></td><td>02/13 10:17 PM EDT</td><td>[facility]</td><t d></td></tr> Monocytes Auto (Bld) [#/Vol] 0.59 [facility] 02-13 22:17 -0400 <tr><td>Abs Monocytes Auto</td><td>0. 59</td><td>0.20 - 1.50 Thou/uL</td><td ></td><td>02/13 10:17 PM EDT</td><td>[facility]</td><t d></td></tr> Eosinophils Auto (Bld) [#/Vol] 0.16 [facility] 02-13 22:17 -0400 <tr><td>Abs Eosinophils Auto</td><td>0. 16</td><td>0.00 - 0.70 Thou/uL</td><td ></td><td>02/13 10:17 PM EDT</td><td>[facility]</td><t d></td></tr> Basophils Auto (Bld) [#/Vol] 0.06 [facility] 02-13 22:17 -0400 <tr><td>Abs Basophils Auto</td><td>0. 06</td><td>0.00 - 0.20 Thou/uL</td><td ></td><td>02/13 10:17 PM EDT</td><td>[facility]</td><t d></td></tr> Complete Blood Count, with D ifferentialon 02-14-2024 Hemoglobin (Bld) [Mass/Vol] 8.5 g/dL Low 11.7 - 15.7 g/dL [facility] 02-13 22:17 -0400 Hemoglobin 8.5 (L) 11.7 - 15.7 g/dL 02/14/2024 10:17 PM EDT [facility] Hematocrit Auto (Bld) [Volume fraction] 27.9 % Low 35.0 - 47.0 % [facility] 02-13 22:17 -0400 Hematocrit 27.9 (L) 35.0 - 47.0 % 02/14/2024 10:17 PM [facility] MCV Auto (RBC) [Entitic vol] 78 fL Low 80 - 100 fL [facility] 02-13 22:17 -0400 MCV 78 (L) 80 - 100 fL 02/14/2024 10:17 PM [facility] MCH Auto (RBC) [Entitic mass] 23.8 pg Low 26.0 - 34.0 pg [facility] 02-13 22:17 -0400 MCH 23.8 (L) 26.0 - 34.0 pg 02/14/2024 10:17 PM [facility] MCHC Auto (RBC) [Mass/Vol] 30.5 g/dL 30.0 - 36.0 g/dL [facility] 02-13 22:17 -0400 MCHC 30.5 30.0 - 36.0 g/dL 02/14/2024 10:17 PM [facility] Erythrocyte distribution width Auto (RBC) [Ratio] 17.8 % High 11.5 - 14.5 % [facility] 02-13 22:17 -0400 RDW 17.8 (H) 11.5 - 14.5 % 02/14/2024 10:17 PM [facility] Platelet mean volume Auto (Bld) [Entitic vol] 9.5 fL 7.5 - 12.5 fL [facility] 02-13 22:17 -0400 MPV 9.5 7.5 - 12.5 fL 02/14/2024 10:17 PM [facility] Neutrophils/10 0 WBC Auto (Bld) 62.8 % [facility] 02-13 22:17 -0400 Neutrophils Auto 62.8 % 02/14/2024 10:17 PM [facility] Immature granulocytes/1 00 WBC Auto (Bld) 0.3 % [facility] 02-13 22:17 -0400 Immature Granulocytes 0.3 % 02/14/2024 10:17 PM [facility] Lymphocytes/10 0 WBC Auto (Bld) 26.3 % [facility] 02-13 22:17 -0400 Lymphocytes Auto 26.3 % 02/14/2024 10:17 PM [facility] Monocytes/100 WBC Auto (Bld) 7.7 % [facility] 02-13 22:17 -0400 Monocytes Auto 7.7 % 02/14/2024 10:17 PM [facility] Eosinophils/10 0 WBC Auto (Bld) 2.1 % [facility] 02-13 22:17 -0400 Eosinophils Auto 2.1 % 02/14/2024 10:17 PM [facility] Basophils/100 WBC Auto (Bld) 0.8 % [facility] 02-13 22:17 -0400 Basophils Auto 0.8 % 02/14/2024 10:17 PM [facility] Comprehensive Metabolic [facility] 02-14-2024 Glucose [Mass/Vol] 209 High 65-99 mg/dL [facility] 02-13 22:45 -0400 (L) Fasting: <100 mg/dL, Non-Fasting: <200 mg/dL (ADA 2005) Urea nitrogen [Mass/Vol] 33 High 8-21 mg/dL [facility] 02-13 22:45 -0400 Creatinine [Mass/Vol] 2.6 High 0.4-1.1 mg/dL [facility] 02-13 22:45 -0400 GFR/1.73 sq M.predicted CKD-EPI (S/P/Bld) [Vol rate/Area] 23 Low 59 - PINF [facility] 02-13 22:45 -0400 <tr><td>eGFR</t d><td><content> 23</content><co ntent> (L)</content></ td><td>>59</td> <td></td><td> 10:45 PM EDT</td><td>[facility]</td><t d></td></tr> Comment on above: CKD-EPI (2020) in mL/min/1.73 sq meters. Sodium [Moles/Vol] 134 Low 136-145 mmol/L [facility] 02-13 22:45 -0400 Potassium [Moles/Vol] 3.4 3.4-5.3 mmol/L [facility] 02-13 22:45 -0400 Chloride [Moles/Vol] 93 Low 98-107 mmol/L [facility] 02-13 22:45 -0400 CO2 [Moles/Vol] 23 22-33 mmol/L [facility] 02-13 22:45 -0400 Calcium [Mass/Vol] 9.0 8.7-10.5 mg/dL [facility] 02-13 22:45 -0400 ALP [Catalytic activity/Vol] 115 32-122 U/L [facility] 02-13 22:45 -0400 AST [Catalytic activity/Vol] 25 10-50 U/L [facility] 02-13 22:45 -0400 ALT [Catalytic activity/Vol] 14 10-50 U/L [facility] 02-13 22:45 -0400 Bilirubin [Mass/Vol] 0.2 0.2-1.0 mg/dL [facility] 02-13 22:45 -0400 Protein [Mass/Vol] 7.8 6.3-8.3 g/dL [facility] 02-13 22:45 -0400 Albumin [Mass/Vol] 4.4 3.5-5.0 g/dL [facility] 02-13 22:45 -0400 Urea nitrogen/Creat inine [Mass ratio] 13 [facility] 02-13 22:45 -0400 <tr><td>BUN/Cre atinine Ratio</td><td>1 3</td><td>10.0 - 25.0 Ratio</td><td>< /td><td> 10:45 PM EDT</td><td>[facility]</td><t d></td></tr> Globulin Calc (S) [Mass/Vol] 3.4 1.5-3.9 g/dL [facility] 02-13 22:45 -0400 Albumin/Globul in [Mass ratio] 1.3 [facility] 02-13 22:45 -0400 <tr><td>Albumin /Globulin Ratio</td><td>1 .3</td><td>1.0 - 3.0 Ratio</td><td>< /td><td> 10:45 PM EDT</td><td>[facility]</td><t d></td></tr> Anion gap (Bld) [Moles/Vol] 18 High 7 - [facility] 02-13 22:45 -0400 <tr><td>Anion Gap</td><td><co ntent>18</lauren nt><content> (H)</content></ td><td> - </td><td></td ><td>02/14/2024 10:45 PM EDT</td><td>[facility]</td><t d></td></tr> Glucose [Mass/Vol] 209 mg/dL High 65 - 99 mg/dL [facility] 02-13 22:45 -0400 Glucose 209 (H) 65 - 99 mg/dL 02/14/2024 10:45 PM EDT [facility] Comment on above: Fasting: <100 mg/dL, Non-Fasting: <200 m g/dL (ADA 2005) Urea nitrogen [Mass/Vol] 33 mg/dL High 8 - 21 mg/dL [facility] 02-13 22:45 -0400 Blood Urea Nitrogen (BUN) 33 (H) 8 - 21 mg/dL 02/14/2024 10:45 PM [facility] Creatinine [Mass/Vol] 2.6 mg/dL High 0.4 - 1.1 mg/dL [facility] 02-13 22:45 -0400 Creatinine 2.6 (H) 0.4 - 1.1 mg/dL 02/14/2024 10:45 PM [facility] Sodium [Moles/Vol] 134 mmol/L Low 136 - 145 mmol/L [facility] 02-13 22:45 -0400 Sodium 134 (L) 136 - 145 mmol/L 02/14/2024 10:45 PM [facility] Potassium [Moles/Vol] 3.4 mmol/L 3.4 - 5.3 mmol/L [facility] 02-13 22:45 -0400 Potassium 3.4 3.4 - 5.3 mmol/L 02/14/2024 10:45 PM [facility] Chloride [Moles/Vol] 93 mmol/L Low 98 - 107 mmol/L [facility] 02-13 22:45 -0400 Chloride 93 (L) 98 - 107 mmol/L 02/14/2024 10:45 PM [facility] CO2 [Moles/Vol] 23 mmol/L 22 - 33 mmol/L [facility] 02-13 22:45 -0400 CO2 23 22 - 33 mmol/L 02/14/2024 10:45 PM [facility] Calcium [Mass/Vol] 9.0 mg/dL 8.7 - 10.5 mg/dL [facility] 02-13 22:45 -0400 Calcium 9.0 8.7 - 10.5 mg/dL 02/14/2024 10:45 PM [facility] ALP [Catalytic activity/Vol] 115 U/L 32 - 122 U/L [facility] 02-13 22:45 -0400 Alkaline Phosphatase 115 32 - 122 U/L 02/14/2024 10:45 PM [facility] AST [Catalytic activity/Vol] 25 U/L 10 - 50 U/L [facility] 02-13 22:45 -0400 Aspartate Aminotrans (AST) 25 10 - 50 U/L 02/14/2024 10:45 PM [facility] ALT [Catalytic activity/Vol] 14 U/L 10 - 50 U/L [facility] 02-13 22:45 -0400 Alanine Aminotrans (ALT) 14 10 - 50 U/L 02/14/2024 10:45 PM [facility] Bilirubin [Mass/Vol] 0.2 mg/dL 0.2 - 1.0 mg/dL [facility] 02-13 22:45 -0400 Bilirubin, Total 0.2 0.2 - 1.0 mg/dL 02/14/2024 10:45 PM [facility] Protein [Mass/Vol] 7.8 g/dL 6.3 - 8.3 g/dL [facility] 02-13 22:45 -0400 Protein, Total 7.8 6.3 - 8.3 g/dL 02/14/2024 10:45 PM [facility] Albumin [Mass/Vol] 4.4 g/dL 3.5 - 5.0 g/dL [facility] 02-13 22:45 -0400 Albumin 4.4 3.5 - 5.0 g/dL 02/14/2024 10:45 PM [facility] Globulin Calc (S) [Mass/Vol] 3.4 g/dL 1.5 - 3.9 g/dL [facility] 02-13 22:45 -0400 Globulin 3.4 1.5 - 3.9 g/dL 02/14/2024 10:45 PM [facility] Emergency Department (DEEDS) variableson 02-14-2024 Interpretation and review of laboratory results Abnormal [facility] 02-13 22:17 -0400 Ethanol SerPl-mCncon 024 Ethanol [Mass/Vol] <11 <11 mg/dL [facility] 02-14 01:12 -0400 (L) * FOR MEDICAL PURPOSES ONLY * Ethanol, Bloodon 02-14-2024 Ethanol [Mass/Vol] <11 >NINF mg/dL NINF - 11 mg/dL [facility] 02-14 01:12 -0400 Ethanol, Quantitative, Blood <11 <11 mg/dL 02/15/2024 1:12 AM EDT [facility] Comment on above: * FOR MEDICAL PURPOSES ONLY * Lipaseon 02-14-2024 Lipase [Catalytic activity/Vol] 250 U/L High 13 - 60 U/L [facility] 02-13 22:45 -0400 Lipase 250 (H) 13 - 60 U/L 02/14/2024 10:45 PM EDT [facility] Lipase SerPl-cCncon 02-14-20 Lipase [Catalytic activity/Vol] 250 High 13-60 U/L [facility] 02-13 22:45 -0400 No Panel Informationon 02-13 [facility] 02-13 22:17 -0400 [facility] 02-14 01:12 -0400 [facility] 02-14 03:42 -0400 [facility] 02-14 11:52 -0400 Osmolality, Serum/Plasmaon 1 Osmolality [Osmolality] 289 [facility] 02-14 11:52 -0400 <tr><td>Osmolal ity, Serum/Plasma</t d><td>289</td>< td>275 - 305 mOsm/Kg</td><td ></td><td>02/14 11:52 AM EDT</td><td>[facility]</td><td> </td></tr> 10 Min ECG 12 leadOrdered By : Fly Grayson on 01-13-2024 Ventricular rate 91 BPM [facility] Work Phone: [phone] 08:11 -0400 Ventricular rate 91 BPM EKG [facility] Atrial rate 91 BPM [facility] Work Phone: [phone] 08:11 -0400 Atrial rate 91 BPM EKG [facility] QRS duration 106 ms [facility] Work Phone: [phone] 08:11 -0400 QRS duration 106 ms EKG [facility] QTC calculation (Bazett) 443 ms [facility] Work Phone: [phone] 08:11 -0400 QTC calculation (Bazett) 443 ms EKG [facility] P axis 54 degrees [facility] Work Phone: [phone] 08:11 -0400 P axis 54 degrees EKG [facility] R axis -37 degrees [facility] Work Phone: [phone] 08:11 -0400 R axis -37 degrees EKG [facility] T axis 43 degrees [facility] Work Phone: [phone] 08:11 -0400 T axis 43 degrees EKG [facility] Work Phone: [phone] 01-12 08:11 -0400 10 Min ECG 12 leadon 024 Normal sinus rhythm Possible Left atrial enlargement Left axis deviation Poor R wave progression Abnormal ECG Confirmed by MD Grayson John ([id number]) on 01/13/2024 8:11:03 AM EKG [facility] 01-12 08:11 -0400 Normal sinus rhythm Possible Left atrial enlargement Left axis deviation Poor R wave progression Abnormal ECG Confirmed by MD Grayson John ([id number]) on 01/13/2024 8:11:03 AM Fly Grayson MD - 01/13/2024 Normal sinus rhythm Possible Left atrial enlargement Left axis deviation Poor R wave progression Abnormal ECG Confirmed by MD Grayson John ([id number]) on 01/13/2024 8:11:03 AM [facility] 01-12 08:11 -0400 Fly Grayson MD - 01/13/2024 Normal sinus rhythm Possible Left atrial enlargement Left axis deviation Poor R wave progression Abnormal ECG Confirmed by MD Grayson John ([id number]) on 01/13/2024 8:11:03 AM CBC, with Differentialon WBC Auto (Bld) [#/Vol] 7.6 [facility] 01-12 08:54 -0400 <tr><td>White Blood Cell Count</td><td>7 .6</td><td>4.0 - 11.0 Thou/uL</td><td ></td><td>01/12 8:54 AM EDT</td><td>[facility]</td><t d></td></tr> Platelets Auto (Bld) [#/Vol] 411 [facility] 01-12 08:54 -0400 <tr><td>Platele t Count</td><td>4 11</td><td>150 - 450 Thou/uL</td><td ></td><td>01/12 8:54 AM EDT</td><td>[facility]</td><t d></td></tr> Hemoglobin (Bld) [Mass/Vol] 8.1 Low 11.7-15.7 g/dL [facility] 01-12 08:54 -0400 Hematocrit Auto (Bld) [Volume fraction] 27.6 Low 35.0-47.0 % [facility] 01-12 08:54 -0400 RBC Auto (Bld) [#/Vol] 3.37 Low [facility] 01-12 08:54 -0400 <tr><td>Red Blood Cell Count</td><td>< content>3.37</c ontent><content > (L)</content></ td><td>4.00 - 5.40 Mil/uL</td><td> </td><td>2023 8:54 AM EDT</td><td>[facility]</td><t d></td></tr> MCV Auto (RBC) [Entitic vol] 82 80-100 fL [facility] 01-12 08:54 -0400 MCH Auto (RBC) [Entitic mass] 24.0 Low 26.0-34.0 pg [facility] 01-12 08:54 -0400 MCHC Auto (RBC) [Mass/Vol] 29.3 Low 30.0-36.0 g/dL [facility] 01-12 08:54 -0400 Erythrocyte distribution width Auto (RBC) [Ratio] 17.0 High 11.5-14.5 % [facility] 01-12 08:54 -0400 Platelet mean volume Auto (Bld) [Entitic vol] 9.5 7.5-12.5 fL [facility] 01-12 08:54 -0400 Neutrophils/10 0 WBC Auto (Bld) 62.0 % [facility] 01-12 08:54 -0400 Immature granulocytes/1 00 WBC Auto (Bld) 0.4 % [facility] 01-12 08:54 -0400 Lymphocytes/10 0 WBC Auto (Bld) 24.4 % [facility] 01-12 08:54 -0400 Monocytes/100 WBC Auto (Bld) 7.6 % [facility] 01-12 08:54 -0400 Eosinophils/10 0 WBC Auto (Bld) 4.9 % [facility] 01-12 08:54 -0400 Basophils/100 WBC Auto (Bld) 0.7 % [facility] 01-12 08:54 -0400 Neutrophils Auto (Bld) [#/Vol] 4.71 [facility] 01-12 08:54 -0400 <tr><td>Abs Neutrophils Auto</td><td>4. 71</td><td>2.00 - 7.50 Thou/uL</td><td ></td><td>01/12 8:54 AM EDT</td><td>[facility]</td><t d></td></tr> Immature granulocytes Auto (Bld) [#/Vol] 0.03 [facility] 01-12 08:54 -0400 <tr><td>Abs Immature Granulocytes</t d><td>0.03</td> <td>0.00 - 0.10 Thou/uL</td><td ></td><td>01/12 8:54 AM EDT</td><td>[facility]</td><t d></td></tr> Lymphocytes Auto (Bld) [#/Vol] 1.85 [facility] 01-12 08:54 -0400 <tr><td>Abs Lymphocytes Auto</td><td>1. 85</td><td>1.50 - 4.50 Thou/uL</td><td ></td><td>01/12 8:54 AM EDT</td><td>[facility]</td><t d></td></tr> Monocytes Auto (Bld) [#/Vol] 0.58 [facility] 01-12 08:54 -0400 <tr><td>Abs Monocytes Auto</td><td>0. 58</td><td>0.20 - 1.50 Thou/uL</td><td ></td><td>01/12 8:54 AM EDT</td><td>[facility]</td><t d></td></tr> Eosinophils Auto (Bld) [#/Vol] 0.37 [facility] 01-12 08:54 -0400 <tr><td>Abs Eosinophils Auto</td><td>0. 37</td><td>0.00 - 0.70 Thou/uL</td><td ></td><td>01/12 8:54 AM EDT</td><td>[facility]</td><t d></td></tr> Basophils Auto (Bld) [#/Vol] 0.05 [facility] 01-12 08:54 -0400 <tr><td>Abs Basophils Auto</td><td>0. 05</td><td>0.00 - 0.20 Thou/uL</td><td ></td><td>01/12 8:54 AM EDT</td><td>[facility]</td><t d></td></tr> Complete Blood Count, with D ifferentialon 01-13-2024 Hemoglobin (Bld) [Mass/Vol] 8.1 g/dL Low 11.7 - 15.7 g/dL [facility] 01-12 08:54 -0400 Hemoglobin 8.1 (L) 11.7 - 15.7 g/dL 01/13/2024 8:54 AM [facility] Hematocrit Auto (Bld) [Volume fraction] 27.6 % Low 35.0 - 47.0 % [facility] 01-12 08:54 -0400 Hematocrit 27.6 (L) 35.0 - 47.0 % 01/13/2024 8:54 AM [facility] MCV Auto (RBC) [Entitic vol] 82 fL 80 - 100 fL [facility] 01-12 08:54 -0400 MCV 82 80 - 100 fL 01/13/2024 8:54 AM [facility] MCH Auto (RBC) [Entitic mass] 24.0 pg Low 26.0 - 34.0 pg [facility] 01-12 08:54 -0400 MCH 24.0 (L) 26.0 - 34.0 pg 01/13/2024 8:54 AM [facility] MCHC Auto (RBC) [Mass/Vol] 29.3 g/dL Low 30.0 - 36.0 g/dL [facility] 01-12 08:54 -0400 MCHC 29.3 (L) 30.0 - 36.0 g/dL 01/13/2024 8:54 AM [facility] Erythrocyte distribution width Auto (RBC) [Ratio] 17.0 % High 11.5 - 14.5 % [facility] 01-12 08:54 -0400 RDW 17.0 (H) 11.5 - 14.5 % 01/13/2024 8:54 AM [facility] Platelet mean volume Auto (Bld) [Entitic vol] 9.5 fL 7.5 - 12.5 fL [facility] 01-12 08:54 -0400 MPV 9.5 7.5 - 12.5 fL 01/13/2024 8:54 AM [facility] Neutrophils/10 0 WBC Auto (Bld) 62.0 % [facility] 01-12 08:54 -0400 Neutrophils Auto 62.0 % 01/13/2024 8:54 AM [facility] Immature granulocytes/1 00 WBC Auto (Bld) 0.4 % [facility] 01-12 08:54 -0400 Immature Granulocytes 0.4 % 01/13/2024 8:54 AM [facility] Lymphocytes/10 0 WBC Auto (Bld) 24.4 % [facility] 01-12 08:54 -0400 Lymphocytes Auto 24.4 % 01/13/2024 8:54 AM [facility] Monocytes/100 WBC Auto (Bld) 7.6 % [facility] 01-12 08:54 -0400 Monocytes Auto 7.6 % 01/13/2024 8:54 AM [facility] Eosinophils/10 0 WBC Auto (Bld) 4.9 % [facility] 01-12 08:54 -0400 Eosinophils Auto 4.9 % 01/13/2024 8:54 AM [facility] Basophils/100 WBC Auto (Bld) 0.7 % [facility] 01-12 08:54 -0400 Basophils Auto 0.7 % 01/13/2024 8:54 AM [facility] Interpretation and review of laboratory results Abnormal [facility] 01-12 08:54 -0400 [facility] 01-12 08:54 -0400 Comprehensive Metabolic [facility] 01-13-2024 Glucose [Mass/Vol] 183 High 65-99 mg/dL [facility] 01-12 09:16 -0400 (L) Fasting: <100 mg/dL, Non-Fasting: <200 mg/dL (ADA 2005) Urea nitrogen [Mass/Vol] 21 8-21 mg/dL [facility] 01-12 09:16 -0400 Creatinine [Mass/Vol] 1.9 High 0.4-1.1 mg/dL [facility] 01-12 09:16 -0400 GFR/1.73 sq M.predicted CKD-EPI (S/P/Bld) [Vol rate/Area] 34 Low 59 - PINF [facility] 01-12 09:16 -0400 <tr><td>eGFR</t d><td><content> 34</content><co ntent> (L)</content></ td><td>>59</td> <td></td><td> 9:16 AM EDT</td><td>[facility]</td><t d></td></tr> Comment on above: CKD-EPI (2020) in mL/min/1.73 sq meters. Sodium [Moles/Vol] 136 136-145 mmol/L [facility] 01-12 09:16 -0400 Potassium [Moles/Vol] 3.7 3.4-5.3 mmol/L [facility] 01-12 09:16 -0400 Chloride [Moles/Vol] 99 98-107 mmol/L [facility] 01-12 09:16 -0400 CO2 [Moles/Vol] 24 22-33 mmol/L [facility] 01-12 09:16 -0400 Calcium [Mass/Vol] 8.9 8.7-10.5 mg/dL [facility] 01-12 09:16 -0400 ALP [Catalytic activity/Vol] 114 32-122 U/L [facility] 01-12 09:16 -0400 AST [Catalytic activity/Vol] 17 10-50 U/L [facility] 01-12 09:16 -0400 ALT [Catalytic activity/Vol] 13 10-50 U/L [facility] 01-12 09:16 -0400 Bilirubin [Mass/Vol] <0.2 Low 0.2-1.0 mg/dL [facility] 01-12 09:16 -0400 Protein [Mass/Vol] 7.7 6.3-8.3 g/dL [facility] 01-12 09:16 -0400 Albumin [Mass/Vol] 4.2 3.5-5.0 g/dL [facility] 01-12 09:16 -0400 Urea nitrogen/Creat inine [Mass ratio] 11 [facility] 01-12 09:16 -0400 <tr><td>BUN/Cre atinine Ratio</td><td>1 1</td><td>10.0 - 25.0 Ratio</td><td>< /td><td> 024 9:16 AM EDT</td><td>[facility]</td><t d></td></tr> Globulin Calc (S) [Mass/Vol] 3.5 1.5-3.9 g/dL [facility] 01-12 09:16 -0400 Albumin/Globul in [Mass ratio] 1.2 [facility] 01-12 09:16 -0400 <tr><td>Albumin /Globulin Ratio</td><td>1 .2</td><td>1.0 - 3.0 Ratio</td><td>< /td><td> 9:16 AM EDT</td><td>[facility]</td><t d></td></tr> Anion gap (Bld) [Moles/Vol] 13 7 - 17 [facility] 01-12 09:16 -0400 <tr><td>Anion Gap</td><td>13< /td><td>7 - 17</td><td></td ><td>01/13/2024 9:16 AM EDT</td><td>[facility]</td><t d></td></tr> Glucose [Mass/Vol] 183 mg/dL High 65 - 99 mg/dL [facility] 01-12 09:16 0400 Glucose 183 (H) 65 - 99 mg/dL 01/13/2024 9:16 AM [facility] Comment on above: Fasting: <100 mg/dL, Non-Fasting: <200 m g/dL (ADA 2005) Urea nitrogen [Mass/Vol] 21 mg/dL 8 - 21 mg/dL [facility] 01-12 09:16 0400 Blood Urea Nitrogen (BUN) 21 8 - 21 mg/dL 01/13/2024 9:16 AM [facility] Creatinine [Mass/Vol] 1.9 mg/dL High 0.4 - 1.1 mg/dL [facility] 01-12 09:16 040 Creatinine 1.9 (H) 0.4 - 1.1 mg/dL 01/13/2024 9:16 AM [facility] Sodium [Moles/Vol] 136 mmol/L 136 - 145 mmol/L [facility] 01-12 09:16 0400 Sodium 136 136 - 145 mmol/L 01/13/2024 9:16 AM [facility] Potassium [Moles/Vol] 3.7 mmol/L 3.4 - 5.3 mmol/L [facility] 01-12 09:16 0400 Potassium 3.7 3.4 - 5.3 mmol/L 01/13/2024 9:16 AM [facility] Chloride [Moles/Vol] 99 mmol/L 98 - 107 mmol/L [facility] [facility] 01-12 09:16 0400 Chloride 99 98 - 107 mmol/L 01/13/2024 9:16 AM [facility] CO2 [Moles/Vol] 24 mmol/L 22 - 33 mmol/L [facility] 01-12 09:16 0400 CO2 24 22 - 33 mmol/L 01/13/2024 9:16 AM [facility] Calcium [Mass/Vol] 8.9 mg/dL 8.7 - 10.5 mg/dL [facility] 01-12 09:16 0400 Calcium 8.9 8.7 - 10.5 mg/dL 01/13/2024 9:16 AM [facility] ALP [Catalytic activity/Vol] 114 U/L 32 - 122 U/L [facility] 01-12 09:16 -0400 Alkaline Phosphatase 114 32 - 122 U/L 01/13/2024 9:16 AM [facility] AST [Catalytic activity/Vol] 17 U/L 10 - 50 U/L [facility] 01-12 09:16 -0400 Aspartate Aminotrans (AST) 17 10 - 50 U/L 01/13/2024 9:16 AM [facility] ALT [Catalytic activity/Vol] 13 U/L 10 - 50 U/L [facility] 01-12 09:16 -0400 Alanine Aminotrans (ALT) 13 10 - 50 U/L 01/13/2024 9:16 AM [facility] Bilirubin [Mass/Vol] <0.2 >NINF mg/dL Low 0.2 - 1.0 mg/dL [facility] 01-12 09:16 -0400 Bilirubin, Total <0.2 (L) 0.2 - 1.0 mg/dL 01/13/2024 9:16 AM [facility] Protein [Mass/Vol] 7.7 g/dL 6.3 - 8.3 g/dL [facility] 01-12 09:16 -0400 Protein, Total 7.7 6.3 - 8.3 g/dL 01/13/2024 9:16 AM [facility] Albumin [Mass/Vol] 4.2 g/dL 3.5 - 5.0 g/dL [facility] 01-12 09:16 0400 Albumin 4.2 3.5 - 5.0 g/dL 01/13/2024 9:16 AM [facility] Globulin Calc (S) [Mass/Vol] 3.5 g/dL 1.5 - 3.9 g/dL [facility] 01-12 09:16 0400 Globulin 3.5 1.5 - 3.9 g/dL 01/13/2024 9:16 AM [facility] POC Glucoseon 01-13-2024 Glucose [Mass/Vol] 234 mg/dL High 65-99 mg/dL [facility] 01-12 03:05 -0400 POCT Glucose, Fingerstickon 01-13-2024 Glucose (Bld) [Mass/Vol] 234 mg/dL High 65 - 99 mg/dL [facility] 01-12 03:05 -0400 POC Glucose 234 (H) 65 - 99 mg/dL 01/13/2024 3:05 AM EDT Interpretation and review of laboratory results Abnormal [facility] 01-12 03:05 -0400 [facility] 01-12 03:05 -0400 No Panel Information REG ADDL ENC CATEGORY 1 (PVISIT) : [id number]~( SOT) SEXUAL ORIENTATION: Choose not to disclose~(PCPN OTIFY) REG ADDL ENC CATEGORY 1: Yes-notify [facility] SEXUAL ORIENTATION (PVISIT) : [id number]~( SOT) SEXUAL ORIENTATION: Choose not to disclose [facility] APPT STATUS (PVISIT) : [id number]~( SOT) SEXUAL ORIENTATION: Choose not to disclose~(APPT _STATUS) APPT STATUS: 6 [facility] (PVISIT) : [id number] [facility] REG ADDL ENC CATEGORY 1 (PVISIT) : [id number]~( SOT) SEXUAL ORIENTATION: Choose not to disclose~(PCPN OTIFY) REG ADDL ENC CATEGORY 1: Yes-notify [facility] Social History Date Type Detail Facility Start: 01-13-2024 Gender identity Identifies as female gender (finding) [facility] Start: 01-13-2024 Sexual orientation Choose not to dis close [facility] Start: 12-20-2019 End: 02-15-2024 Alcohol intake Current drinker of alcohol (finding) [facility] Start: 12-20-2019 End: 02-15-2024 History of Social function [facility] Work Phone: Start: 12-20-2019 End: 02-15-2024 Tobacco use panel [facility] Work Phone: Start: 12-14-2019 Tobacco smoking stat us NHIS Never smoked tobacco [facility] Start: 12-14-2019 Tobacco use and exposure Smoke less tobacco non-user [facility] Start: 12-14-2019 Alcohol Comment very rarely on ly on special occasions as per pt [facility] Start: 1985 Sex Assigned At Female H [facility] How often to you hav e a drink containing alcohol? Never [facility] Work Phone: How many standard dr inks containing alcohol do you have on a typical day? Patient does not drink [facility] Vital Signs Date Time Vital Sign Value Performing Clinician Facility 02-15-2024 20:22-0400 Body temperature 94.5 [degF] Oral Deleon MD Work Phone: [facility] 02-15-2024 20:22-0400 BP (Blood pressure) 151/93mm[Hg] Oral Deleon MD Work Phone: [facility] 02-15-2024 20:22-0400 Heart rate 93 /min Oral Deleon MD Work Phone: [facility] 02-15-2024 20:22-0400 Respiratory rate 20 /min Oral Deleon MD Work Phone: [facility] 02-15-2024 20:22-0400 SaO2% (BldA) [Mass fraction] 100 % Oral Deleon MD Work Phone: [facility] 02-15-2024 15:01-0400 Body mass index (BMI) [Ratio] 27.05 kg/m2 Oral Deleon MD Work Phone: [facility] 02-15-2024 15:01-0400 Body weight 80.7 kg Oral Deleon MD Work Phone: [facility] 01-13-2024 08:22-0400 Body temperature 98.2 [degF] Opal Hernandez MD Work Phone: [facility] 01-13-2024 08:22-0400 BP (Blood pressure) 120/71mm[Hg] Opal Hernandez MD Work Phone: [facility] 01-13-2024 08:22-0400 Heart rate 83 /min Opal Hernandez MD Work Phone: [facility] 01-13-2024 08:22-0400 Respiratory rate 18 /min Opal Hernandez MD Work Phone: [facility] 01-13-2024 08:22-0400 SaO2% (BldA) [Mass fraction] 100 % Opal Hernandez MD Work Phone: [facility] Clinical Notes 12-29-2019 to 02-16-2024 Plan of Care - Phyllis Franco RN - 02/15/2024 8:32 PM EDTPlan of Care - Phyllis Franco RN - 02/15/2024 8:32 PM ED[facility]Plan [facility] - Dominic Verdugo APRN - 02/15/2024 8:26 PM EDT Note Date & Type Note Facility 02-16-2024 Election Judge Authentication Interface Message Text I personally saw [...] to JONNY. 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 Interpreted by: Jose Self MD Vector Control Assistant I personally reviewed the images and the [...] seen at the time of discharge. Osvaldo Praks MD 02/19/2024 9:49 AM [facility] 02-15-2024 Plan of care note Assumed [...] Safety maintained. Phyllis Franco 02/15/2024 8:32 PM [facility] 02-15-2024 Miscellaneous Notes Assumed care 1099 - [...] out be primary RN. Per [place] of [place] General Statutes Sec: 38a-226c: Notification of determination communicated within 2 business days of receipt of all information necessary to complete the review. Please fax authorization determination to [phone] or call [phone]. [facility] Admission Note Type: (Inpt/Obsv): Inpatient Date [...] Q6H PRN Given, 4 mg at 02/14 0836 Bed Type: Medicine general Kaela Jacobs RN [...] primary ED provider. documented in this encounter [facility] 02-15-2024 Plan of care note Patient seen [...] sign. PIV taken out be primary RN. [facility] Work Phone: 02-15-2024 slot operations manager Note Per [place] General [place] Sec: 38a-226c: Notification of determination communicated within 2 business days of receipt of all information necessary to complete the review. Please fax authorization determination to [phone] or call [phone]. [facility] Work Phone: 02-15-2024 slot operations manager Note UM Admission Note Type: (Inpt/Obsv): [...] general Kaela Jacobs RN 02/15/2024 3:31 PM [facility] Work Phone: 02-15-2024 Note 132 [facility] P-R interval 132 ms EKG [facility] 02-15-2024 Note 420 [facility] Q-T interval 420 ms EKG [facility] 02-15-2024 Plan of care note Summer Owen [...] insulin regimen based on blood glucose level [facility] Work Phone: 02-15-2024 Emergency department Note Pt endorsing abd pain and some nausea, medicated per JUL, ambulatory at bedside, set up w/ clear liquid for PO, plan for provider recs and symptom control Brody Velasquez RN 02/15/24 1202 T [facility] Work Phone: 02-15-2024 Election Judge Authentication Interface Message Text Pt endorsing abd pain and some nausea, medicated per MAR, ambulatory at bedside, set up w/ clear liquid for PO, plan for provider recs and symptom control Brody Velasquez RN 02/15/24 1202 [facility] 02-15-2024 Emergency department Note Pt endorsing abd pain and some nausea, medicated per MAR, ambulatory at bedside, set up w/ clear liquid for PO, plan for provider recs and symptom control Brody Velasquez RN 02/15/24 1202 documented in this encounter [facility] 02-15-2024 Consult note Associated Order (s): IP [...] the care of this patient Malorie Goodsonoury [facility] Gastroenterology and Hepatology Fellow, PGY-6 02/15/24 Subjective 38 year old female with DM1, CKD stage III, chronic RODERICK, diabetic gastroparesis status post gastric stimulator 9 years ago, anxiety, who presented to the ED for nausea, vomiting, abdominal pain x5 days. Patient went to the [employer] on Thursday 02/08 and ate a turkey [...] was also lying at home listening to [employer] music. Unfortunately her symptoms persisted which prompted [...] time. Ailyn Ortega MD 02/15/2024 7:57 PM [facility] Work Phone: 02-15-2024 Election Judge Authentication Interface Message Text Gastroenterology and Hepatology [...] symptoms began after eating food at the [employer]. Finally, she does appear to have mild [...] the care of this patient Malorie Goodsonoury [facility] Gastroenterology and Hepatology Fellow, PGY-6 02/15/24 Subjective 38 year old female with DM1, CKD stage III, chronic RODERICK, diabetic gastroparesis status post gastric stimulator 9 years ago, anxiety, who presented to the ED for nausea, vomiting, abdominal pain x5 days. Patient went to the [employer] on Thursday 02/08 and ate a turkey [...] was also lying at home listening to [employer] music. Unfortunately her symptoms persisted which prompted [...] Will be discussed with GI/Hepatology Service Attending [facility] 02-15-2024 Election Judge Authentication Interface Message Text Gastroenterology and Hepatology [...] symptoms began after eating food at the [employer]. Finally, she does appear to have mild [...] the care of this patient Malorie Goodsonoury [facility] Gastroenterology and Hepatology Fellow, PGY-6 02/15/24 Subjective 38 year old female with DM1, CKD stage III, chronic RODERICK, diabetic gastroparesis status post gastric stimulator 9 years ago, anxiety, who presented to the ED for nausea, vomiting, abdominal pain x5 days. Patient went to the [employer] on Thursday 02/08 and ate a turkey [...] was also lying at home listening to [employer] music. Unfortunately her symptoms persisted which prompted [...] Will be discussed with GI/Hepatology Service Attending [facility] 02-15-2024 Election Judge Authentication Interface Message Text Gastroenterology and Hepatology [...] the care of this patient Malorie Alonzo [facility] Gastroenterology and Hepatology Fellow, PGY-6 02/15/24 Subjective 38 year old female with DM1, CKD stage III, chronic RODERICK, diabetic gastroparesis status post gastric stimulator 9 years ago, anxiety, who presented to the ED for nausea, vomiting, abdominal pain x5 days. Patient went to the [employer] on Thursday 02/08 and ate a turkey [...] was also lying at home listening to [employer] music. Unfortunately her symptoms persisted which prompted [...] Will be discussed with GI/Hepatology Service Attending [facility] 02-15-2024 Election Judge Authentication Interface Message Text Attestation signed by [...] symptoms began after eating food at the [employer]. Finally, she does appear to have mild [...] care of this patient Malorie Alonzo Brayden [facility] Gastroenterology and Hepatology Fellow, PGY-6 02/15/24 Subjective 38 year old female with DM1, CKD stage III, chronic RODERICK, diabetic gastroparesis status post gastric stimulator 9 years ago, anxiety, who presented to the ED for nausea, vomiting, abdominal pain x5 days. Patient went to the [employer] on Thursday 02/08 and ate a turkey [...] Will be discussed with GI/Hepatology Service Attending [facility] 02-15-2024 Consult note Associated Order (s): [...] symptoms began after eating food at the [employer]. Finally, she does appear to have mild [...] the care of this patient Malorie Owen [facility] Gastroenterology and Hepatology Fellow, PGY-6 02/15/24 Subjective 38 year old female with DM1, CKD stage III, chronic RODERICK, diabetic gastroparesis status post gastric stimulator 9 years ago, anxiety, who presented to the ED for nausea, vomiting, abdominal pain x5 days. Patient went to the [employer] on Thursday 02/08 and ate a turkey [...] was also lying at home listening to [employer] music. Unfortunately her symptoms persisted which prompted [...] 02/15/2024 7:57 PM documented in this encounter [facility] 02-15-2024 Note 120 [facility] Work Phone: P-R interval 120 ms EKG [facility] 02-15-2024 Note 380 [facility] Work Phone: Q-T interval 380 ms EKG [facility] 02-15-2024 History and physical note Images from [...] software and direct typing please excuse inadvertent repair coil winder or typing errors or uncorrected wart substitutions. Although every attempt has been made by the provider to proofread this document, occasional misspellings and typographical errors may still be present. [facility] 02-15-2024 Election Judge Authentication Interface Message Text HOSPITAL MEDICINE ADMISSION [...] software and direct typing please excuse inadvertent repair coil winder or typing errors or uncorrected wart substitutions. Although every attempt has been made by the provider to proofread this document, occasional misspellings and typographical errors may still be present. [facility] 02-15-2024 History and physical note Images [...] software and direct typing please excuse inadvertent repair coil winder or typing errors or uncorrected wart substitutions. Although every attempt has been made by the provider to proofread this document, occasional misspellings and typographical errors may still be present. documented in this encounter [facility] 02-15-2024 Election Judge Authentication Interface Message Text History History of [...] acute findings. Interpreted by: Jose Self MD Vector Control Assistant I personally reviewed the images and the resident's preliminary report and AGREE with the report as it is now presented (RADPAL1). NOE Tim 02/19/24 NOE Tim 02/19/24 1449 [facility] 02-15-2024 Election Judge Authentication Interface Message Text History History of [...] acute findings. Interpreted by: Jose Self MD Vector Control Assistant I personally reviewed the images and the resident's preliminary report and AGREE with the report as it is now presented (RADPAL1). NOE Tim 02/19/24 NOE Tim 02/19/24 7396 [facility] 02-14-2024 Emergency department Note HPI: 38 [...] will defer to patient's primary ED provider. [facility] Work Phone: 01-13-2024 Emergency department Note Patient [...] be made aware. Sujey Gunter RN 01/13/2454 [facility] Work Phone: 01-13-2024 Election Judge Authentication Interface Message Text Patient assumed to [...] be made aware. Sujey Gunter RN 01/13/2454 [facility] 01-13-2024 Emergency department Note Patient assumed [...] control and UA. Sujey Gunter RN 01/13/24 3852 I have acknowledged/accepted the hand off of care for this patient. Sujey Gunter RN 01/13/24 0850 documented in this encounter [facility] 01-13-2024 Emergency department Note Patient resting in stretcher, A/OX4, RR even/unlabored on room air. Patient denies CP, SOB, n/t and dizziness at this time, but continues to endorse abdominal discomfort and nausea. VS as documented. Patient medicated per JUL. Stretcher in lowest, locked position with personal items in reach. Plan pending symptom control and UA. Sujey Gunter RN 01/13/24 0852 [facility] 01-13-2024 Election Judge Authentication Interface Message Text Patient resting in stretcher, A/OX4, RR even/unlabored on room air. Patient denies CP, SOB, n/t and dizziness at this time, but continues to endorse abdominal discomfort and nausea. VS as documented. Patient medicated per JUL. Stretcher in lowest, locked position with personal items in reach. Plan pending symptom control and UA. Sujey Gunter RN 01/13/24 0852 [facility] 01-13-2024 Note 134 [facility] Work Phone: P-R interval 134 ms EKG [facility] 01-13-2024 Note 360 [facility] Work Phone: Q-T interval 360 ms EKG [facility] 01-13-2024 Election Judge Authentication Interface Message Text I personally saw [...] Emergency Medicine Opal Hernandez MD 01/13/24 1050 [facility] 01-13-2024 Election Judge Authentication Interface Message Text History Chief Complaint [...] compared to normal. Does not have a publicity writer at this time, not on dialysis. Patient [...] voicemail inboxes. Nathanael Doe MD Resident 01/13/242005 [facility] 01-13-2024 Election Judge Authentication Interface Message Text History Chief Complaint [...] compared to normal. Does not have a publicity writer at this time, not on dialysis. Patient [...] move the patient to another room. [JK] 0989 Per RN there was blood on the [...] voicemail inboxes. Nathanael Doe MD Resident 01/13/242005 [facility] 01-13-2024 Emergency department Note Formatting of this note might be differe nt from the original. I have acknowledged/accepted the hand off of care for this patient. Sujey Gunter RN 01/13/24 0850 [facility] 01-13-2024 Election Judge Authentication Interface Message Text I have acknowledged/accepted the hand of f of care for this patient. Sujey Gunter RN 01/13/24 0850 [facility] 12-29-2019 CT ABDOMEN+PELVIS W/O CONTRAST EXAMINATION: [...] acute findings. Interpreted by: Jose Self MD Vector Control Assistant I personally reviewed the images and the resident's preliminary report and AGREE with the report as it is now presented (RADPAL1). Left upper quadrant pain radiating to left flank, evaluation for kidney stones, pyonephritis. Pancreatitis Electronically Signed on: MonFeb 15, 2024 8:13 AM by Daniel Henry MD Patient Name: SUMMER OWEN - Patient : 1985 - Referring Provider: JAIMIE BILLINGS [facility] Evaluation note Diagnosis Flank pain- Primary Abdominal pain, unspecified site documented in this encounter [facility] Diagnosis JONNY (acute kidney injury) (HCC)- Primary JONNY (acute kidney injury) (HCC) Pancreatitis Acute pancreatitis Gastroparesis Epigastric pain Abdominal pain, epigastric documented in this encounter [facility] Reason Comments Flank Pain Chest [facility]* Reason Comments Flank Pain * Auth/Cert (Routine) Specialty Diagnoses / Procedures Referred By Vinh t Referred To Contact Diagnoses JONNY (acute kidney injury) (HCC) Procedures . Referral ID Status Reason Start Date Expiration Date Visits Re quested Visits Authorized [id number] 1 1 [facility] Advance Directives Date Activated Date Inactivated Comments [...] 0748 (New Bag - Prov ider: Sujey Gnuter RN)0842 (Stopped - Provider: Sujey Gunter RN) [...] 0900 0735 (Given - Provider: Juan David Cristina, MARY) 0900 (Due) Continuous Medication Order 02/14/2024 [...] Peña RN)0736 (Given - Provider: Juan David Cirstina, MARY)1154 (Given - Provider: Brody Velasquez RN) hydrOXYzine HCl (ATARAX) tablet 10 mg 10 mg, Oral, Every 6 hours PRN, anxiety, Starting on Ally 02/15/24 at 0311 ondansetron (ZOFRAN) injection 4 mg 4 mg, Intravenous, Every 6 hours PRN, nausea, vomiting, Starting on Ally 02/15/24 at 0308 0427 (Hold - Provider: Dominique Peña RN - Reason: Dose held per order parameters)0809 (Given - Provider: Vero Hollis, RN)1604 (Given - Provider: Phyllis Franco RN) Linked Groups Order Group 1: [...] Care Teams (unrecognized sec tion and content) [employer] Material [employer] Relationship Specialty Start Date End Date Dariusz Garcia PA [address] [place] [address] PCP - General 12/14/19 [employer] Material Inspector Relationship Specialty Start Date End Date [place]arius[place] PA [address] [place] [address] PCP - General 12/14/19 This clinical document has been generated using [employer] software that has been certified by the Office of the National Coordinator for Health Information Technology (ONC 15.99.04.3023.Diam.[id number]) and the National Committee for Donkey Engine Firer/Fireman (NCQA, as an eMeasure certified technology). FOR [...] BE BASED ON THE PRIMARY CLINICAL RECORDS. [employer] provides no warranty or guarantee of the accuracy or completeness of information in this document.The following information is based on time limited clinical information
--- NOTE | 2024-05-26 12:47 | ED.GENADULT ---
HPI - General Adult General Chief complaint: Chest Pain Stated complaint: Chest pain Related Data Previous Rx's ?Medication ?Instructions ?Recorded pen needle, diabetic 32 gauge x #100 ea 08/10/23 (BD Rylee 2nd Gen Pen Needle) blood-glucose meter,continuous #1 ea 09/28/23 (Dexcom G7 Laminating Machine Operator) blood-glucose sensor (Dexcom G7 #1 ea 09/28/23 Sensor device) cyclobenzaprine 10 mg tablet 10 mg PO TID PRN muscle spasm #15 09/28/23 tabs losartan 25 mg tablet 25 mg PO DAILY 90 days #90 tabs 09/28/23 sertraline 50 mg tablet 50 mg PO DAILY 30 days #30 tabs 09/28/23 ondansetron HCl 4 mg tablet 4 mg PO Q6H PRN nausea and 10/07/23 vomiting #10 tabs insulin glargine 100 unit/mL (3 22 unit (0.22 mL) subcut BEDTIME 01/25/24 mL) subcutaneous pen 30 days #15 mL insulin lispro 100 unit/mL 4 - 5 unit (0.04 - 0.05 mL) subcut 01/25/24 subcutaneous pen TIDAC 30 days #15 mL trazodone 50 mg tablet 25 mg (1/2 x 50 mg) PO DAILY 30 01/25/24 days #15 tabs omeprazole 20 mg capsule,delayed 20 mg PO DAILY 15 days #15 caps 02/26/24 release ondansetron 8 mg disintegrating 8 mg PO Q12H 15 days #30 tabs 02/26/24 tablet ondansetron 4 mg disintegrating 4 mg PO Q6H PRN nausea and 05/23/24 tablet vomiting #10 tabs oxycodone 5 mg tablet 5 mg PO Q6H PRN pain #10 tabs 05/23/24 Allergies Allergy/AdvReac Type Severity Reaction Status Date / Time morphine [MORPHINE] Allergy Unknown HIVES Verified 05/26/24 12:48 raspberry [Raspberry] Allergy Unknown HIVES Verified 05/26/24 12:48 nitrofurantoin AdvReac Unknown GI side Verified 05/26/24 12:48 [From Macrobid] effects PMFSH Past Medical History Medical History Mesenteric ischemia Chronic pain disorder Iron deficiency anemia GERD without esophagitis Gastroparesis Nausea Hordeolum externum of right eye Chronic kidney disease Anxiety Diabetes Hypertension Surgical History Hx of right BKA History of right cataract surgery Family History Family History Father Hyperlipidemia Mother Stomach cancer Sister Diabetes Mental health disorder Social History Social History Housing: Apartment Alcohol intake: never Patient Tobacco Use Status: Never used Tobacco e-Cigarette/Vaping Use: Never Used Second Hand Smoke Exposure: No Substance Use Type: Marijuana Advance Directives Date on File: 02/09/21 Do you have a plan to hurt others: No Plan service: No Current occupational status: employed and disabled 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 Patient is a 39-year-old female who presents to the emergency department for evaluation of chest pain. Reports onset approximately 1 week ago primarily to the substernal region with intermittent occurrence varying intensity. However she states that last night she began experiencing severe pain throughout the left anterior chest radiating to the left shoulder in the left lateral neck and it still persists. She does admit that recently with a past few days she has been vomiting quite a bit in experiencing epigastric pain. Pain exacerbated with movement, deep breathing, eating Plan: Serum labs, EKG, CXR, viral serologies Reevaluation(s) Reevaluation #1: LWCT Medical Decision Making Lab Data 05/26/24 13:12 05/26/24 13:12 Labs: Lab Results 05/26/24 Range/Units 13:12 WBC 7.7 (4.8-10.8) X10*3/uL RBC 3.82 L (4.20-5.50) X10*6/uL Hgb 9.1 L (12.0-16.0) g/dl Hct 29.6 L (37.0-47.0) % MCV 77.5 L (80.0-98.0) fL MCH 23.8 L (27.0-33.0) pg MCHC 30.7 L (31.0-35.0) g/dl RDW 19.3 H (11.0-16.0) % Plt Count 303 (160-400) X10*3/uL MPV 8.7 L (9.4-12.3) fL Immature Gran % (Auto) 0.3 (0.0-0.4) % Neut % (Auto) 66.0 (45-73) % Lymph % (Auto) 24.2 (20-40) % [place] % (Auto) 5.2 (2-11) % Eos % (Auto) 3.1 (0-4) % Baso % (Auto) 1.2 (0-2) % Lymph # (Auto) 1.9 (1.2-4.9) X10*3/uL [place] # (Auto) 0.4 (0.1-1.2) X10*3/uL Eos # (Auto) 0.2 (0.0-0.4) X10*3/uL Baso # (Auto) 0.1 (0.0-0.2) X10*3/uL Abs Immat Gran (auto) 0.02 (0.00-0.03) X10*3/uL Absolute Neuts (auto) 5.1 (2.0-8.3) x10*3/uL Absolute Nucleated RBC 0.000 (0.0-0.012) X10*3/uL Nucleated RBC % (auto) 0.0 (0.0-0.2) /100WBC PT 11.4 (10.9-12.4) SEC INR 1.0 (0.9-1.1) Sodium 137 (135-145) mmol/L Potassium 3.8 D (3.3-5.1) mmol/L Chloride 106 (96-108) mmol/L Carbon Dioxide 23 (22-29) mmol/L Anion Gap 12 (12-20) BUN 21 H (9-16) mg/dL Creatinine 2.08 H (0.5-1.4) mg/dL Estim Creat Clear Calc 39.6 Estimated GFR 26 Random Glucose 166 H (60-115) mg/dL Calcium 8.6 (8.4-10.2) mg/dL Magnesium 1.8 (1.6-2.6) mg/dL Total Bilirubin 0.2 (0.0-1.0) mg/dL AST 26 (5-31) U/L ALT 8 (0-31) U/L Alkaline Phosphatase 107 (39-117) U/L Troponin I High Sens < 2.7 (<3.5-17.0) ng/L Total Protein 7.6 (6.5-8.0) g/dL Albumin 4.0 (3.5-5.0) g/dL Lipase 41 (8-78) U/L Influenza Type A (PCR) NEGATIVE (Negative) Influenza Type B (PCR) NEGATIVE (Negative) RSV RNA Qual (PCR) NEGATIVE (Negative) SARS-CoV-2 RNA (RT-PCR) NEGATIVE (Negative) Discharge Plan Discharge Clinical Impression: Chest pain Patient Disposition: Left W/O Completing Treatment Prescriptions: No Action (DME) pen needle, diabetic [BD Rylee 2nd Gen Pen Needle] 32 gauge x 5/32 needle See Rx Instructions .Route Qty: 100 1RF Rx Instructions: As directed oxycodone 5 mg tablet 5 mg PO Q6H PRN (Reason: pain) Qty: 10 0RF Rx Instructions: Partial Fill upon patient request. ondansetron 4 mg tablet,disintegrating 4 mg PO Q6H PRN (Reason: nausea and vomiting) Qty: 10 0RF ondansetron HCl 4 mg tablet 4 mg PO Q6H PRN (Reason: nausea and vomiting) Qty: 10 0RF cyclobenzaprine 10 mg tablet 10 mg PO TID PRN (Reason: muscle spasm) Qty: 15 0RF sertraline 50 mg tablet 50 mg PO DAILY 30 Days Qty: 30 1RF (DME) Dexcom G7 Laminating Machine Operator Misc See Rx Instructions .Route Qty: 1 0RF Rx Instructions: As directed (DME) Dexcom G7 Sensor Device See Rx Instructions .Route Qty: 1 6RF Rx Instructions: As directed losartan 25 mg tablet 25 mg PO DAILY 90 Days Qty: 90 1RF insulin glargine 100 unit/mL (3 mL) insulin pen 22 unit subcut BEDTIME 30 Days Qty: 15 0RF insulin lispro 100 unit/mL insulin pen 4 - 5 unit subcut TIDAC 30 Days Qty: 15 0RF trazodone 50 mg tablet 25 mg PO DAILY 30 Days Qty: 15 3RF omeprazole 20 mg capsule,delayed release(DR/EC) 20 mg PO DAILY 15 Days Qty: 15 0RF ondansetron 8 mg tablet,disintegrating 8 mg PO Q12H 15 Days Qty: 30 0RF Print Language: Divehi
[2024-05-26 12:48] VITALS: BP 99/68; PULSE 83; RESP 18; TEMP 36.7; O2SAT 98; BMI 26.4
[2024-05-26 13:19] LABS: MANUAL DIFF FLAG NO
[2024-05-26 13:21] LABS: Basophils Absolute Auto 0.1 X10*3/uL (0.0-0.2); Basophils Percent Auto 1.2 % (0-2); Eosinophils Absolute Auto 0.2 X10*3/uL (0.0-0.4); Eosinophils Percent Auto 3.1 % (0-4); Hematocrit 29.6 % (37.0-47.0); Hemoglobin 9.1 g/dl (12.0-16.0); Imm Gran Abs Auto 0.02 X10*3/uL (0.00-0.03); Imm Gran Pct Auto 0.3 % (0.0-0.4); Lymphocytes Absolute Auto 1.9 X10*3/uL (1.2-4.9); Lymphocytes Percent Auto 24.2 % (20-40); Mean Corpuscular HGB Conc 30.7 g/dl (31.0-35.0); Mean Corpuscular Hemoglobin 23.8 pg (27.0-33.0); Mean Corpuscular Volume 77.5 fL (80.0-98.0); Mean Platelet Volume 8.7 fL (9.4-12.3); Monocytes Absolute Auto 0.4 X10*3/uL (0.1-1.2); Monocytes Percent Auto 5.2 % (2-11); Neutrophils Absolute Auto 5.1 x10*3/uL (2.0-8.3); Platelet Count 303 X10*3/uL (160-400); Red Blood Count 3.82 X10*6/uL (4.20-5.50); Red Cell Distribution Width 19.3 % (11.0-16.0); White Blood Count 7.7 X10*3/uL (4.8-10.8)
[2024-05-26 13:30] LABS: Prothrombin Time 11.4 SEC (10.9-12.4)
[2024-05-26 13:35] LABS: Alanine Aminotransferase 8 U/L (0-31); Alkaline Phosphatase 107 U/L (39-117); Anion Gap 12 (12-20); Aspartate Amino Transferase 26 U/L (5-31); Bilirubin Total 0.2 mg/dL (0.0-1.0); Blood Urea Nitrogen 21 mg/dL (9-16); Calcium 8.6 mg/dL (8.4-10.2); Carbon Dioxide 23 mmol/L (22-29); Chloride 106 mmol/L (96-108); Creatinine Clr Calc Pharmacy 39.6; Estimated Glomerular Filt Rate 26; Glucose Random 166 mg/dL (60-115); Lipase 41 U/L (8-78); Magnesium 1.8 mg/dL (1.6-2.6); Potassium 3.8 mmol/L (3.3-5.1); Sodium 137 mmol/L (135-145); Total Protein 7.6 g/dL (6.5-8.0)
[2024-05-26 13:51] LABS: Troponin-I High Sensitivity < 2.7 ng/L (<3.5-17.0)
[2024-05-26 13:56] LABS: Influenza A PCR NEGATIVE (Negative); Influenza B PCR NEGATIVE (Negative); Resp Syncy Virus RNA Qual PCR NEGATIVE (Negative); SARS COV2 PCR INHOUSE NEGATIVE (Negative)
== END 2024-05-26 19:32 | disposition left against medical advice (07) ==
LOC: HO.ED 19:32
PROVIDERS: Nurse Practitioner Family; Emergency Provider Emergency Medicine; PCP Physician Assistant
DX: R07.89 Other chest pain (principal); M54.2 Cervicalgia; M25.512 Pain in left shoulder; R11.10 Vomiting, unspecified; R10.13 Epigastric pain; E11.9 Type 2 diabetes mellitus without complications; I10 Essential (primary) hypertension; Z03.818 Encounter for observation for suspected exposure to other biological agents ruled out; Z79.4 Long term (current) use of insulin; Z79.899 Other long term (current) drug therapy
CPT/HCPCS: 0241U; 71046; 80053; 83690; 83735; 84484; 85025; 85610; 93005; 99283

== ENCOUNTER → 2024-05-26 12:45 | Outpatient (BNV) | payer OTHER, SELFPAY | PROVIDERS: Emergency Provider Emergency Medicine; PCP Physician Assistant; Visit Provider Internal Medicine Cardiovascular Disease | DX: R94.31 Abnormal electrocardiogram [ECG] [EKG] (principal) | CPT/HCPCS: 93010 ==

== ENCOUNTER → 2024-05-26 12:51 | Outpatient (BNV) | payer OTHER, SELFPAY | PROVIDERS: PCP Physician Assistant; Visit Provider Radiology Diagnostic Radiology | DX: R07.9 Chest pain, unspecified (principal) | CPT/HCPCS: 71046 ==

== ENCOUNTER 2024-07-14 14:50 | Emergency (ER) | payer OTHER, SELFPAY ==
[2024-07-14 15:05] VITALS: BP 134/79; PULSE 95; RESP 20; TEMP 37.1; O2SAT 100; BMI 27.6
--- NOTE | 2024-07-14 15:07 | ED_ITS ---
HPI - General Adult General Chief complaint: Abdominal Pain Stated complaint: side pain Time Seen by Provider: 07/14/24 18:46 Source: patient Mode of arrival: ambulatory Limitations: no limitations History of Present Illness ED Provider: Jesu Ross DO HPI narrative: 39-year-old female with past medical history of insulin-dependent diabetes, CKD stage III secondary to diabetes, depression, anxiety (not on medication), right BKA, gastroparesis status post gastric stimulator who presents to the ED for 2 days of constant right-sided flank pain as well as right-sided abdominal pain with urinary hesitancy without fevers, dysuria, chest pain or difficulty breathing. Patient reports a recent cough. She denies trauma to her side. She states she is currently on her menstrual cycle. She denies profuse bleeding. She states her pain is somewhat worse with eating and with lying still and improves when she rocks back and forth on the bed. She admits to cannabis use but denies other illicit drug use. Related Data Previous Rx's ?Medication ?Instructions ?Recorded pen needle, diabetic 32 gauge x #100 ea 08/10/23 (BD Rylee 2nd Gen Pen Needle) blood-glucose meter,continuous #1 ea 09/28/23 (Dexcom G7 Supervisor Quilting) blood-glucose sensor (Dexcom G7 #1 ea 09/28/23 Sensor device) cyclobenzaprine 10 mg tablet 10 mg PO TID PRN muscle spasm #15 09/28/23 tabs losartan 25 mg tablet 25 mg PO DAILY 90 days #90 tabs 09/28/23 sertraline 50 mg tablet 50 mg PO DAILY 30 days #30 tabs 09/28/23 ondansetron HCl 4 mg tablet 4 mg PO Q6H PRN nausea and 10/07/23 vomiting #10 tabs insulin glargine 100 unit/mL (3 22 unit (0.22 mL) subcut BEDTIME 01/25/24 mL) subcutaneous pen 30 days #15 mL trazodone 50 mg tablet 25 mg (1/2 x 50 mg) PO DAILY 30 01/25/24 days #15 tabs omeprazole 20 mg capsule,delayed 20 mg PO DAILY 15 days #15 caps 02/26/24 release ondansetron 8 mg disintegrating 8 mg PO Q12H 15 days #30 tabs 02/26/24 tablet ondansetron 4 mg disintegrating 4 mg PO Q6H PRN nausea and 05/23/24 tablet vomiting #10 tabs oxycodone 5 mg tablet 5 mg PO Q6H PRN pain #10 tabs 05/23/24 insulin lispro 100 unit/mL 4 - 5 unit (0.04 - 0.05 mL) subcut 06/21/24 subcutaneous pen TIDAC 30 days #15 mL ondansetron 4 mg disintegrating 4 mg PO Q8H PRN nausea and 07/14/24 tablet vomiting #7 tabs Allergies Allergy/AdvReac Type Severity Reaction Status Date / Time morphine [MORPHINE] Allergy Unknown HIVES Verified 07/14/24 15:09 raspberry [Raspberry] Allergy Unknown HIVES Verified 07/14/24 15:09 nitrofurantoin AdvReac Unknown GI side Verified 07/14/24 15:09 [From Macrobid] effects Review of Systems 2 Review of Systems: Yes all other systems are reviewed and are negative [facility] Past Medical History Medical History Mesenteric ischemia Chronic pain disorder Iron deficiency anemia GERD without esophagitis Gastroparesis Nausea Hordeolum externum of right eye Chronic kidney disease Anxiety Diabetes Hypertension Surgical History Hx of right BKA History of right cataract surgery Family History Family History Father Hyperlipidemia Mother Stomach cancer Sister Diabetes Mental health disorder Social History Social History Housing: Apartment Alcohol intake: never Patient Tobacco Use Status: Never used Tobacco Smoked in Last 30 Days: No e-Cigarette/Vaping Use: Never Used Second Hand Smoke Exposure: No Use of substances other than those prescribed or required for medical reasons: No Substance Use Type: Marijuana Advance Directives: Yes Advance Directives on File: Yes Advance Directives Date on File: 02/09/21 Patient : No service: No Current occupational status: employed and disabled 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 Eyes: ?PERRL, EOMI Neck: ?Supple, nontender Chest: ?No chest wall tenderness Respiratory: ?Lungs clear to auscultation, no increased work of breathing Cardio: ?Regular rate and rhythm, no murmur, 2+ radial pulses symmetrically GI: ?Soft, nondistended, generalized tenderness to palpation, greatest in the right side Back: ?Normal range of motion, mild right CVA tenderness to percussion. Skin: ?No rash, no lesions Neuro: ?Alert and oriented to person, place and time, moves all 4 extremities, no focal deficits Extremities: ?No swelling or tenderness, full range of motion Psych: ?Calm, alert and cooperative, appropriate behavior Course Course Course Narrative: RME: 39 yold female presents to the Ed for low back pain so severe it caused her fall questionable pass out. Patietn syncopized twice. NO urinary symptoms. urinary/bowel incontinence. labs, EKG, uA ordered.. Medications Administered Discontinued Medications Generic Name Dose Route Start Last Admin Trade Name Freq PRN Reason Stop Dose Admin Haloperidol Lactate 2.5 mg 07/14/24 20:23 07/14/24 20:30 Haloperidol Lactate 5 Mg/Ml Vial IM 07/14/24 20:24 2.5 mg ONCE ONE Administration Lorazepam 1 mg 07/14/24 20:22 07/14/24 20:30 Lorazepam 1 Mg Tablet PO 07/14/24 20:23 1 mg ONCE ONE Administration Medical Decision Making Medical Decision Making MDM Narrative: 39-year-old female who is finally stable presents with 2 days of nonspecific right-sided flank pain. Differential diagnosis does include kidney stone but less likely as the pain is constant without waxing waning symptoms. She has not appear septic. She has significant laboratory findings at baseline with no change. She has an unremarkable anion gap and is not exhibiting any signs of DKA. Presentation is not consistent with ACS the patient has a negative troponin the 2 days if symptoms. I do not feel her presentation is consistent with hyperemesis cannabinoid syndrome as the patient has not vomited after several hours. She does appear very anxious and is reporting pain. We will address these symptoms with lorazepam and IM haloperidol. If pain persists, we will consider CT imaging for further evaluation. Urinalysis shows blood which is consistent with the patient's menstrual cycle. No signs of infection. After receiving the medications the patient looks significantly improve, is resting comfortably and reports symptom relief. Given her age and vital signs as well as re-evaluation, I do not feel her presentation warrants further workup at this time, especially radiation from CT imaging. I did discuss with her providing a prescription for Zofran and having her return immediately if she has any worsening symptoms. Patient agrees with this plan. Admission/Observation Consideration of admission/observation: Escalation of care including admission/observation considered Lab Data MDM Lab Attestation statement: I reviewed the patient's lab results. No leukocytosis, baseline anemia with a hemoglobin of 8.3, no thrombocytopenia, baseline CKD with a creatinine of 1.51, negative test, unremarkable troponin and CMP with chronic elevation of alkaline phosphatase 07/14/24 15:51 07/14/24 15:51 Labs: Lab Results 07/14/24 07/14/24 07/14/24 Range/Units 15:51 18:18 19:48 WBC 7.5 (4.8-10.8) X10*3/uL RBC 3.37 L (4.20-5.50) X10*6/uL Hgb 8.3 L (12.0-16.0) g/dl Hct 27.1 L (37.0-47.0) % MCV 80.4 (80.0-98.0) fL MCH 24.6 L (27.0-33.0) pg MCHC 30.6 L (31.0-35.0) g/dl RDW 20.6 H (11.0-16.0) % Plt Count 354 (160-400) X10*3/uL MPV 8.9 L (9.4-12.3) fL Immature Gran % (Auto) 0.3 (0.0-0.4) % Neut % (Auto) 74.8 H (45-73) % Lymph % (Auto) 17.4 L (20-40) % Kay % (Auto) 4.3 (2-11) % Eos % (Auto) 2.4 (0-4) % Baso % (Auto) 0.8 (0-2) % Lymph # (Auto) 1.3 (1.2-4.9) X10*3/uL Kay # (Auto) 0.3 (0.1-1.2) X10*3/uL Eos # (Auto) 0.2 (0.0-0.4) X10*3/uL Baso # (Auto) 0.1 (0.0-0.2) X10*3/uL Abs Immat Gran (auto) 0.02 (0.00-0.03) X10*3/uL Absolute Neuts (auto) 5.6 (2.0-8.3) x10*3/uL Absolute Nucleated RBC 0.000 (0.0-0.012) X10*3/uL Nucleated RBC % (auto) 0.0 (0.0-0.2) /100WBC PT 11.4 (10.9-12.4) SEC INR 1.0 (0.9-1.1) APTT 30.3 (26.0-36.8) SEC Sodium 138 (135-145) mmol/L Potassium 4.6 D (3.3-5.1) mmol/L Chloride 110 H (96-108) mmol/L Carbon Dioxide 21 L (22-29) mmol/L Anion Gap 12 (12-20) BUN 14 (9-16) mg/dL Creatinine 1.51 H (0.5-1.4) mg/dL Estim Creat Clear Calc 55.7 Estimated GFR 38 POC Glucose 152 H (60-115) mg/dL Random Glucose 191 H (60-115) mg/dL Calcium 9.1 (8.4-10.2) mg/dL Total Bilirubin 0.2 (0.0-1.0) mg/dL AST 22 (5-31) U/L ALT 11 (0-31) U/L Alkaline Phosphatase 153 H (39-117) U/L Troponin I High Sens < 2.7 (<3.5-17.0) ng/L Total Protein 8.0 (6.5-8.0) g/dL Albumin 3.9 (3.5-5.0) g/dL Beta HCG, Quant < 2 mIU/mL Urine Color Yellow Urine Appearance Cloudy Urine pH 6.0 (5.0-9.0) Ur Specific [place] 1.015 (1.005-1.025) Urine Protein 300 (3+) H (Neg-Trace) mg/dL Urine Glucose (UA) Negative (Negative) mg/dL Urine Ketones Negative (Negative) mg/dL Urine Blood Large (3+) H (Negative) Urine Nitrite Negative (Negative) Ur Leukocyte Esterase Trace H (Negative) Urine RBC >20 H (0-2) /HPF Urine WBC 0-5 (0-5) /HPF Ur Squamous Epith Cells 0-2 (0-2) /HPF Urine Bacteria Trace (None Seen) Hyaline Casts 0-2 (0-2) /LPF Urine Opiates Screen Not Detected (Not Detect) Ur Buprenorphine Scrn Not Detected (Not Detect) ng/mL Ur Oxycodone Screen Not Detected (Not Detect) ng/mL Urine Methadone Screen Not Detected (Not Detect) ng/mL Urine Fentanyl Screen Not Detected (Not Detect) Ur Barbiturates Screen Not Detected (Not Detect) Ur Phencyclidine Scrn Not Detected (Not Detect) Ur Amphetamines Screen Not Detected (Not Detect) U Benzodiazepines Scrn Not Detected (Not Detect) Urine Cocaine Screen Not Detected (Not Detect) U Marijuana (THC) Screen POSITIVE H (Not Detect) Independent Interpretation I performed an independent interpretation of an: EKG Interpretation: Normal sinus rhythm at 94 beats per minute, left axis deviation, LVH, no diagnostic ST or T-wave abnormalities, compared to prior dated 05/26/2024 there are no significant changes Discharge Plan Discharge Clinical Impression: Chronic abdominal pain Patient Disposition: Home, Self-Care Instructions: Abdominal Pain (ED), Flank Pain (ED) Additional Instructions: We found no acute abnormalities with vital signs, exam and lab work today. We treated your symptoms with medications today which improved your pain and nausea. No persistent vomiting. Please take the prescribed Zofran 4 mg up to every 8 hours as needed for persistent nausea and vomiting. Please return if you have any worsening pain, inability to tolerate anything to eat or drink, fevers over 100 degrees F or any other acute changes or concerns. Prescriptions: New ondansetron 4 mg tablet,disintegrating 4 mg PO Q8H PRN (Reason: nausea and vomiting) Qty: 7 0RF No Action (DME) pen needle, diabetic [BD Rylee 2nd Gen Pen Needle] 32 gauge x 5/32 needle See Rx Instructions .Route Qty: 100 1RF Rx Instructions: As directed insulin lispro 100 unit/mL insulin pen 4 - 5 unit subcut TIDAC 30 Days Qty: 15 0RF oxycodone 5 mg tablet 5 mg PO Q6H PRN (Reason: pain) Qty: 10 0RF Rx Instructions: Partial Fill upon patient request. ondansetron 4 mg tablet,disintegrating 4 mg PO Q6H PRN (Reason: nausea and vomiting) Qty: 10 0RF ondansetron HCl 4 mg tablet 4 mg PO Q6H PRN (Reason: nausea and vomiting) Qty: 10 0RF cyclobenzaprine 10 mg tablet 10 mg PO TID PRN (Reason: muscle spasm) Qty: 15 0RF sertraline 50 mg tablet 50 mg PO DAILY 30 Days Qty: 30 1RF (DME) Dexcom G7 Supervisor Quilting Misc See Rx Instructions .Route Qty: 1 0RF Rx Instructions: As directed (DME) Dexcom G7 Sensor Device See Rx Instructions .Route Qty: 1 6RF Rx Instructions: As directed losartan 25 mg tablet 25 mg PO DAILY 90 Days Qty: 90 1RF insulin glargine 100 unit/mL (3 mL) insulin pen 22 unit subcut BEDTIME 30 Days Qty: 15 0RF trazodone 50 mg tablet 25 mg PO DAILY 30 Days Qty: 15 3RF omeprazole 20 mg capsule,delayed release(DR/EC) 20 mg PO DAILY 15 Days Qty: 15 0RF ondansetron 8 mg tablet,disintegrating 8 mg PO Q12H 15 Days Qty: 30 0RF Interventions: ED Discharge Assessment Last Done: 07/14/24 21:44 Discharge Date/Time: 07/14/24 21:45 Print Language: Moroccan
--- NOTE | 2024-07-14 15:14 | ECG_ITS ---
Test Reason : CHEST PAIN Blood Pressure : */* mmHG Vent. Rate : 94 BPM Atrial Rate : 94 BPM P-R Int : 108 ms QRS Dur : 96 ms QT Int : 366 ms P-R-T Axes : 40 -17 15 degrees QTcB Int : 457 ms Sinus rhythm with short NM Minimal voltage criteria for LVH, may be normal variant ( Warren product ) Borderline ECG When compared with ECG of 26-May-2024 12:45, No significant change was found Referred By: Fawad Sood Electronically Signed By: BRENT PACKER MD
[2024-07-14 15:55] LABS: MANUAL DIFF FLAG NO
[2024-07-14 15:56] LABS: Basophils Absolute Auto 0.1 X10*3/uL (0.0-0.2); Basophils Percent Auto 0.8 % (0-2); Eosinophils Absolute Auto 0.2 X10*3/uL (0.0-0.4); Eosinophils Percent Auto 2.4 % (0-4); Hematocrit 27.1 % (37.0-47.0); Hemoglobin 8.3 g/dl (12.0-16.0); Imm Gran Abs Auto 0.02 X10*3/uL (0.00-0.03); Imm Gran Pct Auto 0.3 % (0.0-0.4); Lymphocytes Absolute Auto 1.3 X10*3/uL (1.2-4.9); Lymphocytes Percent Auto 17.4 % (20-40); Mean Corpuscular HGB Conc 30.6 g/dl (31.0-35.0); Mean Corpuscular Hemoglobin 24.6 pg (27.0-33.0); Mean Corpuscular Volume 80.4 fL (80.0-98.0); Mean Platelet Volume 8.9 fL (9.4-12.3); Monocytes Absolute Auto 0.3 X10*3/uL (0.1-1.2); Monocytes Percent Auto 4.3 % (2-11); Neutrophils Absolute Auto 5.6 x10*3/uL (2.0-8.3); Neutrophils Percent Auto 74.8 % (45-73); Platelet Count 354 X10*3/uL (160-400); Red Blood Count 3.37 X10*6/uL (4.20-5.50); Red Cell Distribution Width 20.6 % (11.0-16.0); White Blood Count 7.5 X10*3/uL (4.8-10.8)
[2024-07-14 16:03] LABS: Prothrombin Time 11.4 SEC (10.9-12.4)
[2024-07-14 16:06] LABS: Partial Thromboplastin Time 30.3 SEC (26.0-36.8)
[2024-07-14 16:21] LABS: Troponin-I High Sensitivity < 2.7 ng/L (<3.5-17.0)
[2024-07-14 16:28] LABS: Alanine Aminotransferase 11 U/L (0-31); Albumin Level 3.9 g/dL (3.5-5.0); Anion Gap 12 (12-20); Aspartate Amino Transferase 22 U/L (5-31); Bilirubin Total 0.2 mg/dL (0.0-1.0); Blood Urea Nitrogen 14 mg/dL (9-16); Calcium 9.1 mg/dL (8.4-10.2); Carbon Dioxide 21 mmol/L (22-29); Chloride 110 mmol/L (96-108); Creatinine Clr Calc Pharmacy 55.7; Estimated Glomerular Filt Rate 38; Glucose Random 191 mg/dL (60-115); HCG Quantitative < 2 mIU/mL; Potassium 4.6 mmol/L (3.3-5.1); Sodium 138 mmol/L (135-145)
[2024-07-14 16:42] LABS: Alkaline Phosphatase 153 U/L (39-117)
[2024-07-14 18:21] LABS: Glucose, Whole Blood 152 mg/dL (60-115)
--- NOTE | 2024-07-14 19:51 | PC.NURSE ---
this rn assumed care of pt, pt a&ox4, respirations even and unlabored. pt reporting lower abdominal pain radiating into the lower back. pt reports she has intermittent nausea but denies vomiting and diarrhea. pt is BKA and has a prosthesis. pt independent to bedside commode, urine sample obtained.
[2024-07-14 20:00] VITALS: BP 136/76; PULSE 99; RESP 20; TEMP 36.6; O2SAT 98
[2024-07-14 20:04] LABS: Amphetamine Screen Urine Not Detected (Not Detect); Barbiturates, Urine Not Detected (Not Detect); Benzodiazepines Screen Urine Not Detected (Not Detect); Buprenorphine Scr Not Detected (Not Detect); Cannabinoid Screen Urine POSITIVE (Not Detect); Cocaine Screen Urine Not Detected (Not Detect); Fentanyl, urine Not Detected (Not Detect); Methadone Screen, Urine Not Detected (Not Detect); Opiate Screen Urine Not Detected (Not Detect); Oxycodone Screen Urine Not Detected (Not Detect); Phencyclidine Screen Urine Not Detected (Not Detect)
[2024-07-14] MEDS: LORazepam 1 MG TABLET PO (20:30)
[2024-07-14] MEDS: Haloperidol Lactate 5 MG/ML VIAL 2.5 MG IM (20:30)
[2024-07-14 20:31] LABS: Glucose Urine UA Negative (Negative); Leukocyte Esterase Urine Trace (Negative); Nitrite Urine Negative (Negative); Specific Gravity - Urine 1.015 (1.005-1.025); UMIC TRIGGER UACC YES; Urine Blood Large (3+) (Negative); Urine Ketones Negative (Negative); Urine Protein 300 (3+) mg/dL (Neg-Trace)
[2024-07-14 20:32] LABS: Appearance Urine Cloudy; Color Urine Yellow
[2024-07-14 20:33] LABS: Bacteria Urine Trace (None Seen); Hyaline Casts Urine 0-2 /LPF (0-2); RBC Urine >20 /HPF (0-2); Squamous Epithelial Cell Urine 0-2 /HPF (0-2); WBC Urine 0-5 /HPF (0-5)
[2024-07-14 21:26] VITALS: BP 112/62; PULSE 81; RESP 20; TEMP 36.6; O2SAT 100
[2024-07-14 21:44] VITALS: BP 112/62; PULSE 81; RESP 20; TEMP 36.6; O2SAT 100
== END 2024-07-14 21:45 | disposition home or self-care (01) ==
PROVIDERS: Physician Assistant; Emergency Provider Emergency Medicine; PCP Physician Assistant
DX: R10.2 Pelvic and perineal pain (principal); R55 Syncope and collapse; R07.89 Other chest pain; M54.50 Low back pain, unspecified; R33.9 Retention of urine, unspecified; Z51.81 Encounter for therapeutic drug level monitoring; Z79.899 Other long term (current) drug therapy
CPT/HCPCS: 36415; 80053; 80307; 81001; 81003; 82947; 84484; 84702; 85025; 85610; 85730; 93005; 96372; 99284; 99285; J1630

== ENCOUNTER → 2024-07-14 15:14 | Outpatient (BNV) | payer OTHER, SELFPAY | PROVIDERS: Emergency Provider Emergency Medicine; PCP Physician Assistant; Visit Provider Internal Medicine Cardiovascular Disease | DX: R07.9 Chest pain, unspecified (principal) | CPT/HCPCS: 93010 ==

== ENCOUNTER 2024-07-18 12:30 | Emergency (ER) | payer OTHER, SELFPAY ==
[2024-07-18 13:34] VITALS: BP 96/59; PULSE 96; RESP 20; TEMP 37; O2SAT 98; BMI 26.3
--- NOTE | 2024-07-18 13:38 | ED_ITS ---
HPI - Abdominal Pain General Chief Complaint: Abdominal Pain Stated Complaint: Dizziness, nausea, abd pain Related Data Previous Rx's ?Medication ?Instructions ?Recorded pen needle, diabetic 32 gauge x #100 ea 08/10/23 (BD Rylee 2nd Gen Pen Needle) blood-glucose meter,continuous #1 ea 09/28/23 (Dexcom G7 Manufacturing Assembler) blood-glucose sensor (Dexcom G7 #1 ea 09/28/23 Sensor device) cyclobenzaprine 10 mg tablet 10 mg PO TID PRN muscle spasm #15 09/28/23 tabs losartan 25 mg tablet 25 mg PO DAILY 90 days #90 tabs 09/28/23 sertraline 50 mg tablet 50 mg PO DAILY 30 days #30 tabs 09/28/23 ondansetron HCl 4 mg tablet 4 mg PO Q6H PRN nausea and 10/07/23 vomiting #10 tabs insulin glargine 100 unit/mL (3 22 unit (0.22 mL) subcut BEDTIME 01/25/24 mL) subcutaneous pen 30 days #15 mL trazodone 50 mg tablet 25 mg (1/2 x 50 mg) PO DAILY 30 01/25/24 days #15 tabs omeprazole 20 mg capsule,delayed 20 mg PO DAILY 15 days #15 caps 02/26/24 release ondansetron 8 mg disintegrating 8 mg PO Q12H 15 days #30 tabs 02/26/24 tablet ondansetron 4 mg disintegrating 4 mg PO Q6H PRN nausea and 05/23/24 tablet vomiting #10 tabs oxycodone 5 mg tablet 5 mg PO Q6H PRN pain #10 tabs 05/23/24 insulin lispro 100 unit/mL 4 - 5 unit (0.04 - 0.05 mL) subcut 06/21/24 subcutaneous pen TIDAC 30 days #15 mL ondansetron 4 mg disintegrating 4 mg PO Q8H PRN nausea and 07/14/24 tablet vomiting #7 tabs Allergies Allergy/AdvReac Type Severity Reaction Status Date / Time morphine [MORPHINE] Allergy Unknown HIVES Verified 07/18/24 13:39 raspberry [Raspberry] Allergy Unknown HIVES Verified 07/18/24 13:39 nitrofurantoin AdvReac Unknown GI side Verified 07/18/24 13:39 [From Macrobid] effects PMFSH Past Medical History Medical History Mesenteric ischemia Chronic pain disorder Iron deficiency anemia GERD without esophagitis Gastroparesis Nausea Hordeolum externum of right eye Chronic kidney disease Anxiety Diabetes Hypertension Surgical History Hx of right BKA History of right cataract surgery Family History Family History Father Hyperlipidemia Mother Stomach cancer Sister Diabetes Mental health disorder Social History Social History Housing: Apartment Alcohol intake: never Patient Tobacco Use Status: Never used Tobacco e-Cigarette/Vaping Use: Never Used Second Hand Smoke Exposure: No Substance Use Type: Marijuana Advance Directives: Yes Advance Directives on File: Yes Advance Directives Date on File: 02/09/21 service: No Current occupational status: employed and disabled 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 RME assessment and note performed by: Elke Naik PA-C This is a 53-vykq-eav-female, with a hx of MDD, CKD, KARINA, type 1 diabetes, who presents to the ER with complaints of RL abdominal pain, nausea, vomiting. Increased GERD. Known ovarian cyst. Has not been checking her sugars, she is on insulin, has not been using insulin for 1 week due to symptoms. Patient was seen here on 3 for similar symptoms. Symptoms have not improved. Plan: Labs, POC glucose, EKG, UA, further ER evaluation needed. Reevaluation(s) Reevaluation #1: Patient left without completing treatment. Medical Decision Making Lab Data 07/18/24 14:04 07/18/24 14:04 Labs: Lab Results 07/18/24 07/18/24 Range/Units 13:56 14:04 WBC 7.1 (4.8-10.8) X10*3/uL RBC 3.71 L (4.20-5.50) X10*6/uL Hgb 9.1 L (12.0-16.0) g/dl Hct 29.4 L (37.0-47.0) % MCV 79.2 L (80.0-98.0) fL MCH 24.5 L (27.0-33.0) pg MCHC 31.0 (31.0-35.0) g/dl RDW 19.7 H (11.0-16.0) % Plt Count 407 H (160-400) X10*3/uL MPV 9.6 (9.4-12.3) fL Immature Gran % (Auto) 0.3 (0.0-0.4) % Neut % (Auto) 55.7 (45-73) % Lymph % (Auto) 32.5 (20-40) % Whitley % (Auto) 7.6 (2-11) % Eos % (Auto) 2.8 (0-4) % Baso % (Auto) 1.1 (0-2) % Lymph # (Auto) 2.3 (1.2-4.9) X10*3/uL Whitley # (Auto) 0.5 (0.1-1.2) X10*3/uL Eos # (Auto) 0.2 (0.0-0.4) X10*3/uL Baso # (Auto) 0.1 (0.0-0.2) X10*3/uL Abs Immat Gran (auto) 0.02 (0.00-0.03) X10*3/uL Absolute Neuts (auto) 4.0 (2.0-8.3) x10*3/uL Absolute Nucleated RBC 0.000 (0.0-0.012) X10*3/uL Nucleated RBC % (auto) 0.0 (0.0-0.2) /100WBC Sodium 135 (135-145) mmol/L Potassium 4.3 (3.3-5.1) mmol/L Chloride 102 (96-108) mmol/L Carbon Dioxide 22 (22-29) mmol/L Anion Gap 15 (12-20) BUN 29 H (9-16) mg/dL Creatinine 2.26 H (0.5-1.4) mg/dL Estim Creat Clear Calc 36.4 Estimated GFR 24 POC Glucose 163 H (60-115) mg/dL Random Glucose 171 H (60-115) mg/dL Calcium 8.7 (8.4-10.2) mg/dL Magnesium 2.3 (1.6-2.6) mg/dL Total Bilirubin 0.3 (0.0-1.0) mg/dL Direct Bilirubin 0.1 (0.0-0.5) mg/dL AST 31 (5-31) U/L ALT 18 (0-31) U/L Alkaline Phosphatase 143 H (39-117) U/L Troponin I High Sens < 2.7 (<3.5-17.0) ng/L Total Protein 8.7 H (6.5-8.0) g/dL Albumin 4.2 (3.5-5.0) g/dL Lipase 103 H (8-78) U/L Beta HCG, Quant < 2 mIU/mL Discharge Plan Discharge Clinical Impression: Abdominal pain Patient Disposition: Left W/O Completing Treatment Prescriptions: No Action (DME) pen needle, diabetic [BD Rylee 2nd Gen Pen Needle] 32 gauge x 5/32 needle See Rx Instructions .Route Qty: 100 1RF Rx Instructions: As directed insulin lispro 100 unit/mL insulin pen 4 - 5 unit subcut TIDAC 30 Days Qty: 15 0RF oxycodone 5 mg tablet 5 mg PO Q6H PRN (Reason: pain) Qty: 10 0RF Rx Instructions: Partial Fill upon patient request. ondansetron 4 mg tablet,disintegrating 4 mg PO Q6H PRN (Reason: nausea and vomiting) Qty: 10 0RF ondansetron HCl 4 mg tablet 4 mg PO Q6H PRN (Reason: nausea and vomiting) Qty: 10 0RF ondansetron 4 mg tablet,disintegrating 4 mg PO Q8H PRN (Reason: nausea and vomiting) Qty: 7 0RF cyclobenzaprine 10 mg tablet 10 mg PO TID PRN (Reason: muscle spasm) Qty: 15 0RF sertraline 50 mg tablet 50 mg PO DAILY 30 Days Qty: 30 1RF (DME) Dexcom G7 Manufacturing Assembler Misc See Rx Instructions .Route Qty: 1 0RF Rx Instructions: As directed (DME) Dexcom G7 Sensor Device See Rx Instructions .Route Qty: 1 6RF Rx Instructions: As directed losartan 25 mg tablet 25 mg PO DAILY 90 Days Qty: 90 1RF insulin glargine 100 unit/mL (3 mL) insulin pen 22 unit subcut BEDTIME 30 Days Qty: 15 0RF trazodone 50 mg tablet 25 mg PO DAILY 30 Days Qty: 15 3RF omeprazole 20 mg capsule,delayed release(DR/EC) 20 mg PO DAILY 15 Days Qty: 15 0RF ondansetron 8 mg tablet,disintegrating 8 mg PO Q12H 15 Days Qty: 30 0RF Discharge Date/Time: 07/18/24 19:54
--- NOTE | 2024-07-18 13:42 | ECG_ITS ---
Test Reason : WEAKNESS Blood Pressure : */* mmHG Vent. Rate : 87 BPM Atrial Rate : 87 BPM P-R Int : 116 ms QRS Dur : 86 ms QT Int : 374 ms P-R-T Axes : 39 -36 17 degrees QTcB Int : 450 ms Normal sinus rhythm Left axis deviation Moderate voltage criteria for LVH, may be normal variant ( R in aVL , Luis product ) Abnormal ECG When compared with ECG of 14-Jul-2024 15:19, No significant change was found Referred By: Elke Naik Electronically Signed By: BRENT PACKER MD
[2024-07-18 14:14] LABS: MANUAL DIFF FLAG NO
[2024-07-18 14:15] LABS: Basophils Absolute Auto 0.1 X10*3/uL (0.0-0.2); Basophils Percent Auto 1.1 % (0-2); Eosinophils Absolute Auto 0.2 X10*3/uL (0.0-0.4); Eosinophils Percent Auto 2.8 % (0-4); Hematocrit 29.4 % (37.0-47.0); Hemoglobin 9.1 g/dl (12.0-16.0); Imm Gran Abs Auto 0.02 X10*3/uL (0.00-0.03); Imm Gran Pct Auto 0.3 % (0.0-0.4); Lymphocytes Absolute Auto 2.3 X10*3/uL (1.2-4.9); Lymphocytes Percent Auto 32.5 % (20-40); Mean Corpuscular Hemoglobin 24.5 pg (27.0-33.0); Mean Corpuscular Volume 79.2 fL (80.0-98.0); Mean Platelet Volume 9.6 fL (9.4-12.3); Monocytes Absolute Auto 0.5 X10*3/uL (0.1-1.2); Monocytes Percent Auto 7.6 % (2-11); Neutrophils Percent Auto 55.7 % (45-73); Platelet Count 407 X10*3/uL (160-400); Red Blood Count 3.71 X10*6/uL (4.20-5.50); Red Cell Distribution Width 19.7 % (11.0-16.0); White Blood Count 7.1 X10*3/uL (4.8-10.8)
[2024-07-18 14:18] LABS: Glucose, Whole Blood 163 mg/dL (60-115)
[2024-07-18 14:44] LABS: Alanine Aminotransferase 18 U/L (0-31); Albumin Level 4.2 g/dL (3.5-5.0); Alkaline Phosphatase 143 U/L (39-117); Anion Gap 15 (12-20); Aspartate Amino Transferase 31 U/L (5-31); Bilirubin Direct 0.1 mg/dL (0.0-0.5); Bilirubin Total 0.3 mg/dL (0.0-1.0); Blood Urea Nitrogen 29 mg/dL (9-16); Calcium 8.7 mg/dL (8.4-10.2); Carbon Dioxide 22 mmol/L (22-29); Chloride 102 mmol/L (96-108); Creatinine Clr Calc Pharmacy 36.4; Estimated Glomerular Filt Rate 24; Glucose Random 171 mg/dL (60-115); Lipase 103 U/L (8-78); Magnesium 2.3 mg/dL (1.6-2.6); Potassium 4.3 mmol/L (3.3-5.1); Sodium 135 mmol/L (135-145); Total Protein 8.7 g/dL (6.5-8.0)
[2024-07-18 14:46] LABS: HCG Quantitative < 2 mIU/mL; Troponin-I High Sensitivity < 2.7 ng/L (<3.5-17.0)
--- NOTE | 2024-07-18 19:52 | PC.NURSE ---
this RN attempted to call pt as she left without completing treatment. This RN was going to attempt to see how patient was feeling, and discuss her coming back in. Pt phone number just rings busy, unable to leave messge
--- OUTSIDE RECORDS SUMMARY | 2024-07-18 19:53 | XMS_ITS | Clinical Summary ---
Author Organization [facility] Address [address] [place] [address] Care Team Providers Care [employer] Dean Name Role Phone Cecilia Stauffer APRN Primary Care Provider [phone] Allergies Active Allergy Reactions Criticality Noted Date Comments Morphine 03/13/2015 Medications Medication Sig Dispensed Refills Start Date End Date Status amLODIPine (NORVASC) tablet 10 mg Take 10 mg by mouth daily. 0 Active insulin lispro (HumaLOG) injection 100 units/mL Inject 20 Units under the skin 3 (three) times a day with meals. 0 Active insulin glargine (LANTUS) injection 100 units/mL Inject 30 Units under the skin every night at bedtime. 0 Active omeprazole (PRILOSEC) 20 MG capsule Take 20 mg by mouth daily. 0 Active ferrous sulfate 325 (65 FE) MG tablet Take 325 mg by mouth every morning with breakfast. 0 Active oxyCODONE-acetaminop hen (PERCOCET) 5-325 MG per tablet Take 1 tablet by mouth 2 (two) times a day. 0 Active LORazepam (ATIVAN) 2 MG tabletIndications:An xiety Take 2 mg by mouth 2 (two) times a day. 0 Active ondansetron (ZOFRAN) 4 MG tablet Take 1 tablet (4 mg total) by mouth 4 (four) times a day as needed for nausea. 20 tablet 0 03/16/2015 Active Diclofenac Sodium (Voltaren) 1 % GEL Apply 4 g topically every 6 (six) hours as needed. 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 Generalized abdominal pain 03/13/2015 Midline low back pain without sciatica 5 Hematemesis with nausea 03/13/2015 Intractable nausea and vomiting 03/13/2015 Type 2 diabetes mellitus wit h diabetic chronic kidney disease 03/13/2015 Iron deficiency anemia 03/13/2015 Essential hypertension 03/13/2015 Hyponatremia 03/13/2015 Family History Medical History Relation Name Comments Diabetes Mother Diabetes Sister 1 Diabetes Sister 2 Relation Name Status Comments Mother Sister 1 Sister 2 Social History Tobacco Use Types Packs/Day Years Used Date Smoking Tobacco: Never Tobacco Cessation:Counseling Given: Not Answered Alcohol Use Standard Drinks/Week Comments No 0 (1 standard drink = 0.6 oz pur e alcohol) Sex and Gender Information Value Date Recorded Sex Assigned at Not on file Gender Identity Not on file Sexual Orientation Not on file Job Start Date Occupation Industry Not on file Not on file Not on file Last Filed Vital Signs Vital Sign Reading Time Taken Comments Blood Pressure 120/77 06/12/2022 3:29 PM EST Pulse 96 06/12/2022 3:29 PM EST Temperature 36.8 ??C (98.3 ??F) 06/12/2022 3:29 PM ES T Respiratory Rate 22 06/12/2022 3:29 PM EST Oxygen Saturation 100% 06/12/2022 3:29 PM EST Inhaled Oxygen Concentration - - Weight 64.4 kg (142 lb) 06/12/2022 3:29 PM EST Height 172.7 cm (5' 8 ) 06/12/2022 3:29 PM EST Body Mass Index 21.59 06/12/2022 3:29 PM EST Plan of Treatment Health Maintenance Due Date Last Done Comments Hepatitis B Vaccines (1 of 3 - 3-dose series) 1984 Hepatitis C Screening 1984 COVID-19 Vaccine (#1) 1984 Pneumococcal Vaccine (1 of 2 - PCV) 1990 Depression Screening 1996 Preventative Health Evaluation 2002 DTap / Tdap / Td (1 - Tdap) 2003 Cervical Cancer Screening (P ap Smear) 2005 Influenza Vaccine (#1) 2024 RSV Ped < 20 months Aged Out No longe r eligible based on patient's age to complete this topic Advance Directives For more information, please contact: [phone] Latest Code Status on File Code Status Date Activated Date Inactivated Comments Full Code 03/13/2015 10:23 PM 03/16/2015 8:28 PM Thi s code status was ascertained in the following way: discussion with patient. Care Teams [employer] Dean Relationship Specialty Start Date End Date Cecilia Stauffer APRN [address] [place] [address] PCP - General Associate Professor Of Biology 03/13/15
--- OUTSIDE RECORDS SUMMARY | 2024-07-18 19:53 | XMS_ITS | Patient Health Record ---
Author Organization [facility] Address [address] [place] [address] Care Team Providers Care Museum Technician Name Role Phone Dariusz Garcia Primary Care Provider Unavailab Matt Payton Unavailable [phone] Adrian Do Unavailable Unavailable Reason For Referral No Information Plan Of Treatment No Information Insurance Providers Payer Name Payer Address Payer Phone Subscriber Number Group Number Insured Name Patient Relationship to Insured Coverage Start Date Coverage End Date [facility] [address] [address] [place], [place] [id number] YI KAUR Self - patient is the insured
--- OUTSIDE RECORDS SUMMARY | 2024-07-18 19:53 | XMS_ITS | Clinical Summary ---
Author Organization [facility] Address [address] [address] Care Team Providers Care Director Of Health Care Marketing Name Role Phone Rebecca Ambrose MD Primary Care Provider Allergies Active Allergy Reactions Criticality Noted Date Comments Morphine Rash Low 12/14/2019 Raspberry 07/30/2020 Medications insulin glargine (Basaglar KwikPen) 100 UNIT/ML injection Active Insulin Lispro, 1 Unit Dial, (Admelog SoloStar) 100 UNIT/ML solution pen-injector Active lisinopril (PRINIVIL,ZEST RIL) 5 MG tablet Take 1 tablet by mouth 1 (one) time each day Active venlafaxine (EFFEXOR) 37.5 MG tablet Take 1 tablet by mouth 1 (one) time each day Active acetaminophen- codeine (TYLENOL with CODEINE #3) 300-30 MG per tablet 1 Active meloxicam (MOBIC) 15 MG tablet 1 Active oxyCODONE (ROXICODONE) 5 MG immediate release tablet 1 Active HumaLOG Keith KwikPen 100 UNIT/ML solution pen-injector INJECT 5 UNITS SUBCUTANEOUSLY 3 TIMES A DAY 1 Active Active Problems Problem Noted Date Diagnosed Date Benign essential hypertension 07/30/2020 Renal disorder due to type 1 diabetes mellitus 0 07/30/2020 Hypokalemia 12/14/2019 Hypomagnesemia 12/14/2019 Stage 3 chronic kidney disease 12/14/2019 Anemia 01/28/2014 Acute nontraumatic kidney injury 09/20/2013 Resolved Problems Problem Noted Date Diagnosed Date Resolved Date Abdominal pain 12/28/2019 01/28/2021 Acute pancreatitis 12/14/2019 1 Esophagitis 12/14/2019 01/28/2021 Type 1 diabetes mellitus 12/14/2019 Epigastric pain 12/13/2019 01/28/2021 Overview (07/30/2020): Added automatically from request for surgery [id number] Epigastric pain 12/13/2019 01/28/2021 Overview (10/29/2020): Added automatically from request for surgery [id number] Hypertension 01/28/2014 01/28/2021 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 02/11/2012 01/28/2021 Diabetes mellitus 05/15/2000 01/28/2021 Family History Medical History Relation Comments Cancer Mother stomach Diabetes Sibling Relation Status Comments Father Alive Mother Sibling Social History Tobacco Use Types Packs/Day Years Used Date Smoking Tobacco: Never Alcohol Use Standard Drinks/Week Comments No 0 (1 standard drink = 0.6 oz pur e alcohol) Comments Unknown Sex and Gender Information Value Date Recorded Sex Assigned at Not on file Legal Sex Female 5:05 PM EST Gender Identity Not on file Sexual Orientation Not on file Last Filed Vital Signs Vital Sign Reading Time Taken Comments Blood Pressure 142/84 05/23/2019 12:00 PM EST Pulse 93 05/23/2019 12:00 PM EST Temperature - - Respiratory Rate - - Oxygen Saturation 97% 05/23/2019 12: 00 PM EST Inhaled Oxygen Concentration - - Weight 84.8 kg (186 lb 15.2 oz) 020 12:00 PM EST Height 172.7 cm (5' 8 ) 05/23/2019 12:0 0 PM EST Body Mass Index 28.43 05/23/2019 12:00 PM EST Plan of Treatment Health Maintenance Due Date Last Done Comments Hepatitis B Vaccine (1 of 3 - 19+ 3-dose series) 2003 Pneumococcal Vaccine: Pediat rics (0 to 5 Years) and At-Risk Patients (6 to 64 Years) (3 of 3 - PCV) 04/29/2020 04/29/2019, 03/25/2013, 02/26/2011 Diabetes: Hemoglobin A1C 06/12/2020 Diabetes: Ophthalmology Exam 06/12/2020 Diabetes: Pedal Pulse Checked 06/12/2020 Diabetes: Sensory Foot Exam 06/12/2020 Diabetes: Visual Foot Exam 06/12/2020 Influenza Vaccine (#1) 2024 Insurance Member Subscriber Plan / Payer (Ef fective 2021-Present) Name:Summer Owen Relation to Subscriber:Self Name:Summer Owen Payer ID:Not on file Group ID:[id number] Type:Not on file Address: [place] [phone] [facility] MEDICAID Care Teams Director Of Health Care Marketing Relationship Specialty Start Date End Date Rebecca Ambrose MD [facility] [place] [address] PCP - General 05/25/20
--- OUTSIDE RECORDS SUMMARY | 2024-07-18 19:53 | XMS_ITS | Clinical Summary ---
Author Organization Formerly [facility] Address [address] [place] [address] Care Team Providers Care Cup Setter Lockstitch Name Role Phone Dariusz Garcia Primary Care Provider + Allergies Active Allergy Reactions Criticality Noted Date Comments Morphine Rash/Dermatitis Low 12/14/2019 Medications Medication Sig Dispensed Refills Start Date End Date Status hydrOXYzine HCl (ATARAX) 25 MG tablet Take 1-2 mg by mouth daily as needed for anxiety. 11/14/2019 Active dicyclomine (BENTYL) 10 MG capsuleIndication s:Alcohol-induced acute pancreatitis without infection or necrosis Take 1 capsule (10 mg total) by mouth 3 (three) times a day. 90 capsule 12/20/2019 Active Additional Information Patient not taking.Reason: Other, Informant: Self, Reported on 02/15/2024 folic acid (FOLVITE) 1 MG tabletIndications :Alcohol-induced acute pancreatitis without infection or necrosis Take 1 tablet (1 mg total) by mouth daily. Do not start before December 21, 2019. 30 tablet 12/21/2019 Active Additional Information Patient not taking.Reason: Other, Informant: Self, Reported on 02/15/2024 gabapentin (NEURONTIN) 100 MG capsuleIndication s:Alcohol-induced acute pancreatitis without infection or necrosis Take 1 capsule (100 mg total) by mouth daily. Do not start before December 21, 2019. 30 capsule 12/21/2019 Active Additional Information Patient not taking.Reason: Other, Informant: Self, Reported on 02/15/2024 multivitamin with minerals Tab tabletIndications :Alcohol-induced acute pancreatitis without infection or necrosis Take 1 tablet by mouth daily. Do not start before December 21, 2019. 30 tablet 12/21/2019 Active PANTOprazole (PROTONIX) 40 MG EC tabletIndications :Alcohol-induced acute pancreatitis without infection or necrosis Take 1 tablet (40 mg total) by mouth 2 (two) times a day. 60 tablet 12/20/2019 Active Additional Information Patient not taking.Reason: Other, Informant: Self, Reported on 02/15/2024 thiamine (VITAMIN B-1) 100 MG tabletIndications :Alcohol-induced acute pancreatitis without infection or necrosis Take 2 tablets (200 mg total) by mouth daily. 60 tablet 12/20/2019 Active Additional Information Patient not taking.Reason: Other, Informant: Self, Reported on 02/15/2024 insulin glargine (LANtus) 100 units/mL injectionIndicati ons:Type 1 diabetes mellitus with other specified complication Inject 0.03 mL (3 Units total) under the skin nightly. 0 12/31/2019 Active Additional Information Patient taking differently: 22 UnitsSubcutaneous Nightly, Reason: Other, Informant: Self, Reported on 02/15/2024 traZODone (DESYREL) 50 MG tablet Take 0.5-1 tablets (25-50 mg total) by mouth nightly as needed. 01/25/2024 Active insulin lispro (HumaLOG KWIKPEN) 100 UNIT/ML prefilled pen injection Inject 3-4 Units under the skin 3 (three) times a day before meals. Per sliding scale. Active Active Problems Problem Noted Date Diagnosed Date JONNY (acute kidney injury) 02/15/2024 Abdominal pain 12/28/2019 Acute pancreatitis 12/14/2019 Type 1 diabetes mellitus 12/14/2019 Stage 3 chronic kidney disease 12/14/2019 Anemia 12/14/2019 Esophagitis 12/14/2019 Hypokalemia 12/14/2019 Hypomagnesemia 12/14/2019 Epigastric pain 12/13/2019 Overview (12/19/2019): Added automatically from request for surgery [id number] Family History Medical History Relation Name Comments Diabetes Mother Diabetes Sister Relation Name Status Comments Mother Sister Social History Tobacco Use Types Packs/Day Years Used Date Smoking Tobacco: Never Smokeless Tobacco: Never Alcohol Use Standard Drinks/Week Comments Yes 0 (1 standard drink = 0.6 oz pure alcohol) very rarely only on special occasions as per pt AUDIT-C Answer Date Recorded Q1: How often do you have a drink containing alcohol? Never 02/15/2024 Q2: How many drinks containi ng alcohol do you have on a typical day when you are drinking? Patient does not drink Q3: How often do you have si x or more drinks on one occasion? Never 02/15/2024 Sex and Gender Information Value Date Recorded Sex Assigned at Female 01/13/2024 3:18 AM EDT Gender Identity Female 01/13/2024 3:18 AM EDT Sexual Orientation Choose not to disclose 2023 3:18 AM EDT Last Filed Vital Signs Vital Sign Reading Time Taken Comments Blood Pressure 151/93 02/15/2024 8:22 PM EDT Pulse 93 02/15/2024 8:22 PM EDT Temperature 34.7 ??C (94.5 ??F) 02/15/2024 8:22 PM ED T Respiratory Rate 20 02/15/2024 8:22 PM EDT Oxygen Saturation 100% 02/15/2024 8:22 PM EDT Inhaled Oxygen Concentration - - Weight 80.7 kg (177 lb 14.6 oz) 02/15/2024 3:01 PM EDT Height 172.7 cm (5' 8 ) 12/29/2019 9:46 AM EDT Body Mass Index 27.05 12/29/2019 9:46 AM EDT Plan of Treatment Health Maintenance Due Date Last Done Comments Hepatitis C Virus Screening 1984 Foot Exam 1994 Ophthalmology Exam 1994 HIV Screening 1997 Microalbumin/Creatinine Ratio Urine 2002 DTaP/Tdap/Td Vaccines (1 - Tdap) 2003 Hepatitis B Vaccines (1 of 3 - 19+ 3-dose series) 2003 Pneumococcal Vaccine: Pediatric (0-5 Years) and At-Risk Patients (6 to 49 Years) (1 of 2 - PCV) 2003 Pap Smear (Ages 21-65) 2005 Lipid Panel 12/13/2020 12/14/2019 Influenza Vaccine 12/14/2023 02/12/2020, , 04/04/2016, Additional history exists COVID-19 Vaccine ( - season) 2024 Mammogram 2024 Hemoglobin A1C 08/15/2024 02/15/2024, 12/15/2019 Creatinine with GFR 02/14/2025 02/15/2024, 02/14/2024, 01/13/2024, Additional history exists HPV Vaccines Aged Out No longer eligi ble based on patient's age to complete this topic Procedures Procedure Name Priority Date/Time Associated Diagnosis Comments HEMOGLOBIN A1C WITH ESTIMATED AVERAGE GLUCOSE STAT 02/15/2024 6:38 AM EDT BASIC METABOLIC PANEL STAT 02/15/2024 6:38 AM EDT LIPID PANEL Routine 12/14/2019 12:59 AM EDT from Last 3 Months or Most Recently Relevant to Health Maintenance Results * (ABNORMAL) Hemoglobin A1c with Estimated Average Glucose (02/15/2024 6:38 AM EDT) Hemoglobin A1C 6.2(H) <5.7 % 02/15/2024 7:35 AM EDT [facility] Comment: A1c% ? Interpretation 5.7 - 6.0 ?Increase risk of diabetes 6.1 - 6.4 ?Higher risk of diabetes > or = 6.5 ?? Consistent with diabetes Diabetes Care, 33(Supp 1):S1-S61, 2010 Estimated Average Glucose 131 mg/dL 02/15/2024 7:35 AM EDT [facility] Blood Blood specimen / Unknown 02/15/2024 6:38 AM EDT 02/15/2024 7:14 AM EDT Jaimie Billings MD LAB BLOOD ORDERABLES [address] [address], [address] [address] * (ABNORMAL) Basic Metabolic Panel (02/15/2024 6:38 AM EDT) Glucose 188(H) 65 - 99 mg/dL 02/15/2024 7:42 AM EDT [facility] Comment:Fasting: <100 mg/dL, Non-Fasting: <200 mg/dL (ADA 2005) Blood Urea Nitrogen (BUN) 30(H) 8 - 21 mg/dL 02/15/2024 7:42 AM [facility] Creatinine 2.3(H) 0.4 - 1.1 mg/dL 02/15/2024 7:42 AM [facility] eGFR 27(L) >59 02/15/2024 7:42 AM [facility] Comment:CKD-EPI (2020) in mL /min/1.73 sq meters. Sodium 136 136 - 145 mmol/L 02/15/2024 7:42 AM [facility] Potassium 3.4 3.4 - 5.3 mmol/L 02/15/2024 7:42 AM [facility] Chloride 96(L) 98 - 107 mmol/L 02/15/2024 7:42 AM [facility] CO2 27 22 - 33 mmol/L 02/15/2024 7:42 AM [facility] Anion Gap 13 7 - 17 02/15/2024 7:42 AM [facility] Calcium 8.9 8.7 - 10.5 mg/dL 02/15/2024 7:42 AM [facility] BUN/Creatinine Ratio 13 10.0 - 25.0 Ratio 02/15/2024 7:42 AM [facility] Blood (Plasma/Serum) 02/15/2024 6:38 AM EDT 02/15/2024 7:15 AM EDT Jaimie Billings MD LAB BLOOD ORDERABLES [address] [address], [address] [address] * Lipid Panel (12/14/2019 12:59 AM EDT) Cholesterol, Total 161 <200 mg/dL [facility] Triglycerides 106 <150 mg/dL [facility] Cholesterol, HDL 63 >39 mg/dL [facility] Estimated LDL 77 <130 mg/dL [facility] Comment: NCEP Guidelines: ?< 100 mg/dL ??Optimal 100 - 129 mg/dL ??Near Optimal/Above Optimal 130 - 159 mg/dL ??Borderline High 160 - 189 mg/dL ??High ??>/= 190 mg/dL ??Very High Cholesterol/HDL Ratio 2.6 0.0 - 5.0 Ratio [facility] Comment: Relative Risk ? Ratio - Male ? Ratio - Female ?0.5 ?3.4 ?3.3 ?1.0 ?5.0 ?4.4 ?2.0 ?9.6 ?7.1 ?3.0 ? 23.4 ? 11.0 12/14/2019 12:5 9 AM EDT 12/14/2019 1:06 AM EDT Paolo Dias III, DO LAB BLOOD ORDERAB LES Performing Organization Address City/State/[facility] Co de Phone Number [facility]PITAL [facility] from Last 3 Months or Most Recently Relevant to Health Maintenance Advance Directives * Full Code (Latest Code Status on File) Date Activated Date Inactivated Comments 02/15/2024 3:13 AM Question Answer Comments Decision Thoroughly Discussed with: Patient * Full Code Date Activated Date Inactivated Comments 12/28/2019 5:04 PM 01/13/2024 2:46 AM * Full Code Date Activated Date Inactivated Comments 12/14/2019 8:24 AM 12/28/2019 12:07 PM Question Answer Comments Decision Thoroughly Discussed with: Patient Care Teams Cup Setter Lockstitch Relationship Specialty Start Date End Date Dariusz Garcia PA [address] [place] [address] PCP - General 12/14/19
== END 2024-07-18 19:54 | disposition left against medical advice (07) ==
LOC: HO.ED 19:51
PROVIDERS: Physician Assistant Medical; Emergency Provider Emergency Medicine; PCP Physician Assistant
DX: R42 Dizziness and giddiness (principal); R11.0 Nausea; R10.2 Pelvic and perineal pain; R94.31 Abnormal electrocardiogram [ECG] [EKG]; E10.9 Type 1 diabetes mellitus without complications; Z79.4 Long term (current) use of insulin; Z79.899 Other long term (current) drug therapy
CPT/HCPCS: 36415; 80048; 80076; 82947; 83690; 83735; 84484; 84702; 85025; 93005; 99283

== ENCOUNTER → 2024-07-18 13:42 | Outpatient (BNV) | payer OTHER, SELFPAY | PROVIDERS: PCP Physician Assistant; Visit Provider Internal Medicine Cardiovascular Disease | DX: R94.31 Abnormal electrocardiogram [ECG] [EKG] (principal); R53.1 Weakness | CPT/HCPCS: 93010 ==

== ENCOUNTER 2024-08-31 08:48 | Emergency (ER) | payer OTHER, SELFPAY ==
--- NOTE | ~2024-08-31 | US_ITS ---
CLINICAL HISTORY: R flank pain, dysuria US Renal Comparison: None Findings: Right kidney normal size and echotexture, 10.8 cm length. Left kidney normal size and echotexture, 9.0 cm length. No hydronephrosis of either kidney. Normal color Doppler IMPRESSION: 1. Normal kidneys. This document has been electronically signed by: John Dillon MD on 08/31/2024 10:51:12
--- NOTE | 2024-08-31 08:49 | ECG_ITS ---
Test Reason : CP Blood Pressure : */* mmHG Vent. Rate : 77 BPM Atrial Rate : 77 BPM P-R Int : 126 ms QRS Dur : 86 ms QT Int : 382 ms P-R-T Axes : 30 -25 35 degrees QTcB Int : 432 ms Normal sinus rhythm Minimal voltage criteria for LVH, may be normal variant ( Luis product ) Borderline ECG When compared with ECG of 18-Jul-2024 14:01, No significant change was found Referred By: Generic ED Physician Electronically Signed By: BRENT PACKER MD
[2024-08-31 08:55] VITALS: BP 133/89; PULSE 79; RESP 16; TEMP 36.7; O2SAT 98; BMI 28.0
--- OUTSIDE RECORDS SUMMARY | 2024-08-31 09:14 | XMS_ITS | Clinical Summary ---
Author Organization [facility] Facility Address [address] [address] Care Team Providers Care Sausage Maker Name Role Phone Rebecca Ambrose MD Primary Care Provider [phone] Allergies Active Allergy Reactions Criticality Noted Date [...] (07/30/2020): Added automatically from request for surgery [id number] Epigastric pain 12/13/2019 01/28/2021 Overview (10/29/2020): Added automatically from request for surgery [id number] Hypertension 01/28/2014 01/28/2021 Disorder of nervous system [...] - 19+ 3-dose series) 2003 Pneumococcal Vaccine: Peds ( 0 to 5 Years) and At-Risk Patients (6 to 49 Years) (3 of 3 - PCV) 04/29/2020 04/29/2019, 03/25/2013, 02/26/2011 Diabetes: Hemoglobin A1C 06/12/2020 Diabetes: Ophthalmology Exam 06/12/2020 Diabetes: Pedal Pulse Checked 06/12/2020 Diabetes: Sensory Foot Exam 06/12/2020 Diabetes: Visual Foot Exam 06/12/2020 Influenza Vaccine (Season Ended) 2025 Pneumococcal Vaccine: 50+ Years Discontinued 04/29/2019, 03/25/2013, 02/26/[address] [place] [address] [place] [address] Medicaid Care Teams Sausage Maker Relationship Specialty Start Date End Date Rebecca Ambrose MD [facility] [place] [address] PCP - General 05/25/20
--- OUTSIDE RECORDS SUMMARY | 2024-08-31 09:14 | XMS_ITS | Clinical Summary ---
Author Organization [facility] Address [address] [place] [address] Care Team Providers Care Media Assistant Name Role Phone Dariusz Garcia Primary Care Provider + Allergies Active Allergy Reactions Criticality Noted Date Comments Morphine Rash/Dermatitis Low 12/14/2019 Medications hydrOXYzine HCl (ATARAX) 25 MG tablet Take 1-2 mg by mouth daily as needed for anxiety. 11/14/19 Active dicyclomine (BENTYL) 10 MG capsuleIndicati ons:Alcohol-ind uced acute pancreatitis without infection or necrosis Take 1 capsule (10 mg total) by mouth 3 (three) times a day. 90 capsule 12/20/19 20 Active Additional Information Patient not taking.Reason: Other, Informant: Self, Reported on 02/15/2024 folic acid (FOLVITE) 1 MG tabletIndicatio ns:Alcohol-antonio zoya acute pancreatitis without infection or necrosis Take 1 tablet (1 mg total) by mouth daily. Do not start before December 21, 2019. 30 tablet 12/21/19 20 Active Additional Information Patient not taking.Reason: Other, Informant: Self, Reported on 02/15/2024 gabapentin (NEURONTIN) 100 MG capsuleIndicati ons:Alcohol-ind uced acute pancreatitis without infection or necrosis Take 1 capsule (100 mg total) by mouth daily. Do not start before December 21, 2019. 30 capsule 12/21/19 20 Active Additional Information Patient not taking.Reason: Other, Informant: Self, Reported on 02/15/2024 multivitamin with minerals Tab tabletIndicatio ns:Alcohol-antonio zoya acute pancreatitis without infection or necrosis Take 1 tablet by mouth daily. Do not start before December 21, 2019. 30 tablet 12/21/19 Active PANTOprazole (PROTONIX) 40 MG EC tabletIndicatio ns:Alcohol-antonio zoya acute pancreatitis without infection or necrosis Take 1 tablet (40 mg total) by mouth 2 (two) times a day. 60 tablet 12/20/19 20 Active Additional Information Patient not taking.Reason: Other, Informant: Self, Reported on 02/15/2024 thiamine (VITAMIN B-1) 100 MG tabletIndicatio ns:Alcohol-antonio zoya acute pancreatitis without infection or necrosis Take 2 tablets (200 mg total) by mouth daily. 60 tablet 12/20/19 Active Additional Information Patient not taking.Reason: Other, Informant: Self, Reported on 02/15/2024 insulin glargine (LANtus) 100 units/mL injectionIndica tions:Type 1 diabetes mellitus with other specified complication (HCC) Inject 0.03 mL (3 Units total) under the skin nightly. 0 12/31/19 Active Additional Information Patient taking differently: 22 UnitsSubcutaneous Nightly, Reason: Other, Informant: Self, Reported on 02/15/2024 traZODone (DESYREL) 50 MG tablet Take 0.5-1 tablets (25-50 mg total) by mouth nightly as needed. 01/25/20 24 Active insulin lispro (HumaLOG KWIKPEN) 100 UNIT/ML [...] (12/19/2019): Added automatically from request for surgery [id number] Family History Medical History Relation Name Comments [...] more drinks on one occasion? Never 02/15/2024 Comments Unknown Sex and Gender Information Value Date Recorded Sex Assigned at Female 01/13/2024 3:18 AM EDT Legal Sex Female 6:25 PM EST Gender Identity Female 01/13/2024 3:18 AM EDT [...] 04/04/2016, Additional history exists COVID-19 Vaccine ( season) 2024 Mammogram 2024 Hemoglobin A1C 08/15/2024 [...] 6.2(H) <5.7 % 02/15/2024 7:35 AM EDT [facility] Comment: A1c% ? Interpretation 5.7 - 6.0 ?Increase risk of diabetes 6.1 - 6.4 ?Higher risk of diabetes > or = 6.5 ?? Consistent with diabetes Diabetes Care, 33(Supp 1):S1-S61, 2010 Estimated Average Glucose 131 mg/dL 02/15/2024 7:35 AM EDT [facility] Blood Blood specimen / Unknown 02/15/2024 6:38 AM EDT 02/15/2024 7:14 AM EDT Jaimie Billings MD LAB BLOOD ORDERABLES Final R esult [address] [address], [address] [address] * (ABNORMAL) Basic Metabolic Panel (02/15/2024 6:38 AM EDT) Glucose 188(H) 65 - 99 mg/dL 02/15/2024 7:42 AM [facility] Comment:Fasting: <100 mg/dL, Non-Fasting: <200 mg/dL (ADA 2004) Blood Urea Nitrogen (BUN) 30(H) 8 - 21 mg/dL 02/15/2024 7:42 AM [facility] Creatinine 2.3(H) 0.4 - 1.1 mg/dL 02/15/2024 7:42 AM [facility] eGFR 27(L) >59 02/15/2024 7:42 AM [facility] Comment:CKD-EPI (2020) in mL /min/1.73 sq meters. Sodium 136 136 - 145 mmol/L 02/15/2024 7:42 AM [facility] Potassium 3.4 3.4 - 5.3 mmol/L 02/15/2024 7:42 AM [facility] Chloride 96(L) 98 - 107 mmol/L 02/15/2024 7:42 AM [facility] CO2 27 22 - 33 mmol/L 02/15/2024 7:42 AM [facility] Anion Gap 13 7 - 17 02/15/2024 7:42 AM [facility] Calcium 8.9 8.7 - 10.5 mg/dL 02/15/2024 7:42 AM [facility] BUN/Creatinine Ratio 13 10.0 - 25.0 Ratio 02/15/2024 7:42 AM [facility] Blood (Plasma/Serum) 02/15/2024 6:38 AM EDT 02/15/2024 7:15 AM EDT us Jaimie Billings MD LAB BLOOD ORDERABLES Final R esult [address] [address], [address] [address] * Lipid Panel (12/14/2019 12:59 AM EDT) [...] 9 AM EDT 12/14/2019 1:06 AM EDT us Paolo Dias III, DO LAB BLOOD ORDERABLES Margarita nathan Result [facility] from Last 3 Months or Most Recently Relevant to Health Maintenance Insurance MEDICAID OUT OF STATE [facility] [place] [facility] Advance Directives * Full Code (Latest Code [...] Decision Thoroughly Discussed with: Patient Care Teams Media Assistant Relationship Specialty Start Date End Date Dariusz Garcia PA [address] [place] [id number] PCP - General 12/14/19
--- OUTSIDE RECORDS SUMMARY | 2024-08-31 09:14 | XMS_ITS | Patient Health Record ---
Author Organization [facility] Address [address] [place] [address] Care Team Providers Care Cleaner Furniture Name Role Phone Dariusz Garcia Primary Care Provider Unavailab Matt Payton Unavailable [phone] Adrian Do Unavailable Unavailable Reason For Referral No Information Plan Of Treatment No Information Insurance Providers Payer Name Payer Address Payer Phone Subscriber Number Group Number Insured Name Patient Relationship to Insured Coverage Start Date Coverage End Date [facility] [address] [address] [place], [place] [id number] YI KAUR Self - patient is the insured
--- OUTSIDE RECORDS SUMMARY | 2024-08-31 09:14 | XMS_ITS | Clinical Summary ---
Author Organization [facility] Address [address] [place] [address] Care Team Providers Care Branch Service Associate Name Role Phone Cecilia Stauffer APRN Primary Care Provider [phone] Allergies Active Allergy Reactions Criticality Noted Date [...] Advance Directives For more information, please contact: [phone] Latest Code Status on File Code Status Date Activated Date Inactivated Comments Full Code 03/13/2015 10:23 PM 03/16/2015 8:28 PM Thi s code status was ascertained in the following way: discussion with patient. Care Teams Branch Service Associate Relationship Specialty Start Date End Date Cecilia Stauffer APRN [address] [place] [address] PCP - General Comic Book Designer 03/13/15
--- NOTE | 2024-08-31 09:34 | ED_ITS ---
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 Also reports right flank pain since last night with associated nausea, dysuria and urinary hesitancy. Denies fever, chills, CP/SOB, vomiting, hematuria, travel. Related Data Previous Rx's ?Medication ?Instructions ?Recorded pen needle, diabetic 32 gauge x #100 ea 08/10/23 (BD Rylee 2nd Gen Pen Needle) blood-glucose sensor (Dexcom G7 #1 ea 09/28/23 Sensor device) blood-glucose,endorsement clerk,cont #1 ea 09/28/23 (Dexcom G7 Creative Director) cyclobenzaprine 10 mg tablet 10 mg PO TID PRN muscle spasm #15 09/28/23 tabs losartan 25 mg tablet 25 mg PO DAILY 90 days #90 tabs 09/28/23 sertraline 50 mg tablet 50 mg PO DAILY 30 days #30 tabs 09/28/23 ondansetron HCl 4 mg tablet 4 mg PO Q6H PRN nausea and 10/07/23 vomiting #10 tabs insulin glargine 100 unit/mL (3 22 unit (0.22 mL) subcut BEDTIME 01/25/24 mL) subcutaneous pen 30 days #15 mL trazodone 50 mg tablet 25 mg (1/2 x 50 mg) PO DAILY 30 01/25/24 days #15 tabs omeprazole 20 mg capsule,delayed 20 mg PO DAILY 15 days #15 caps 02/26/24 release ondansetron 8 mg disintegrating 8 mg PO Q12H 15 days #30 tabs 02/26/24 tablet ondansetron 4 mg disintegrating 4 mg PO Q6H PRN nausea and 05/23/24 tablet vomiting #10 tabs oxycodone 5 mg tablet 5 mg PO Q6H PRN pain #10 tabs 05/23/24 insulin lispro 100 unit/mL 4 - 5 unit (0.04 - 0.05 mL) subcut 06/21/24 subcutaneous pen TIDAC 30 days #15 mL ondansetron 4 mg disintegrating 4 mg PO Q8H PRN nausea and 07/14/24 tablet vomiting #7 tabs Allergies Allergy/AdvReac Type Severity Reaction Status Date / Time morphine [MORPHINE] Allergy Unknown HIVES Verified 08/31/24 08:56 raspberry [Raspberry] Allergy Unknown HIVES Verified 08/31/24 08:56 nitrofurantoin AdvReac Unknown GI side Verified 08/31/24 08:56 [From Macrobid] effects Review of Systems 2 Review of Systems: Yes all other systems are reviewed and are negative Constitutional: Constitutional: Reports as per [facility] Past Medical History Attestation statement: The following information was validated with the patient. Source: old records reviewed Medical History Mesenteric ischemia Chronic pain disorder Iron deficiency anemia GERD without esophagitis Gastroparesis Nausea Hordeolum externum of right eye Chronic kidney disease Anxiety Diabetes Hypertension Surgical History Hx of right BKA History of right cataract surgery Family History Family History Father Hyperlipidemia Mother Stomach cancer Sister Diabetes Mental health disorder Social History Social History Housing: Apartment Alcohol intake: never Patient Tobacco Use Status: Never used Tobacco e-Cigarette/Vaping Use: Never Used Second Hand Smoke Exposure: No Substance Use Type: Marijuana Advance Directives Date on File: 02/09/21 service: No Current occupational status: employed and disabled 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[employer] Cognitive needs: No Hearing needs: No Vision needs: Yes (annual eye exam) Physical Exam ED Vital Signs: Vital Signs - 24 hr 08/31/24 08:55 08/31/24 10:25 08/31/24 12:53 Temperature 98.0 F 98.4 F Pulse Rate 79 73 68 Respiratory Rate 16 16 16 Blood Pressure 133/89 142/78 H 130/71 Pulse Oximetry 98 100 97 Oxygen Delivery Method Room Air Room Air Room Air 08/31/24 12:54 Temperature 98.4 F Pulse Rate 68 Respiratory Rate 16 Blood Pressure 130/71 Pulse Oximetry 97 Oxygen Delivery Method Room Air BMI result Body Mass Index 28.0 Const General: cooperative, healthy appearing and no acute distress Orientation/consciousness: patient oriented x3 Limitations: no limitations HENMT Head: Yes normal to inspection and Yes atraumatic Ears: hearing grossly normal bilaterally General nose exam: Normal external nose present Face and sinus: Yes normal facial exam Mouth: Normal oral and palatal mucosa present and no drooling Throat: Yes posterior oropharynx normal Eyes General: appearance normal, both eyes and all related structures EOM: EOMs intact bilaterally Neck Neck: Yes normal visual inspection and Yes no meningeal signs Resp Effort & Inspection: normal respiratory effort and no respiratory distress Auscultation: clear to auscultation bilaterally, no crackles and no wheezes Cardio Rate: regular rate Heart sounds: S1 normal heart sound present and S2 normal heart sound present GI Inspection: Yes normal to inspection Palpation (GI): Soft to palpation, Tenderness to palpation present (GI) in the RLQ; with no rebound tenderness, no guarding and not rigid General: Yes CVA tenderness on the right Back/Spine/Pelvis Back: CVA tenderness Skin Rashes: no rashes Wounds: no wounds Neuro General: patient oriented x3, tone normal, moves all extremities and no meningeal signs Cranial nerves: Yes CN's II-XII intact bilaterally Gait exam (Neuro): Normal gait present Extrem General: Yes normal to inspection Course Course Course Narrative: -1222--mild leukopenia. H/H around patient's baseline. -chronic CKD. Troponin negative -UA with blood/RBCs, similar to prior. No infection. -viral testing negative US renal BI IMPRESSION: 1. Normal kidneys. > on re-evaluation patient is sleeping comfortably -1240--on re-evaluation again patient is still sleeping comfortably, awoken, results discussed. Reports symptomatic improvement. Safe for discharge home at this time. recommended GI follow-up and urology follow-up Medications Administered Discontinued Medications Generic Name Dose Route Start Last Admin Trade Name Freq PRN Reason Stop Dose Admin Diphenhydramine HCl 50 mg 08/31/24 10:39 08/31/24 10:48 Diphenhydramine Hcl 50 Mg/Ml Vial IM 08/31/24 10:40 50 mg ONCE ONE Administration Haloperidol Lactate 5 mg 08/31/24 10:39 08/31/24 10:49 Haloperidol Lactate 5 Mg/Ml Vial IM 08/31/24 10:40 5 mg ONCE ONE Administration Sodium Chloride 1,000 mls @ 999 mls/hr 08/31/24 09:30 08/31/24 10:50 Ns IV 08/31/24 10:30 Infused .Q1H1M THONG Infusion Lorazepam 1 mg 08/31/24 09:40 08/31/24 09:49 Lorazepam 1 Mg Tablet PO 08/31/24 09:41 1 mg ONCE ONE Administration Medical Decision Making Medical Decision Making MDM Narrative: 39-year-old female with a past medical history of diabetes, 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 Also reports right flank pain since last night with associated nausea, dysuria and urinary hesitancy. On exam vital signs stable, NAD, nontoxic appearing, lungs CTA, abdomen soft with right CVAT and RLQ tenderness, no rebound or guarding. Patient with history of chronic right-sided abdominal pain, has been seen ED multiple times for similar symptoms. Concern for viral syndrome illness. Concern for acute on chronic abdominal pain vs renal stone vs pyelo vs UTI. Appendicitis on differential however lower. Lower suspicion for diverticulitis or ovarian pathology including torsion Plan: Labs, UA, viral testing, ultrasound, IVF, reassess Please refer to course for remaining clinical decision making, interpretation of labs/imaging results, and discussions with consultants and/or family members. Differential Diagnosis Differential Diagnoses: The differential diagnosis associated with the presentation includes As above Admission/Observation Consideration of admission/observation: Escalation of care including admission/observation considered Lab Data [facility] Lab Attestation statement: I reviewed the patient's lab results. 08/31/24 09:43 08/31/24 09:43 Labs: Lab Results 08/31/24 08/31/24 08/31/24 Range/Units 09:43 09:50 10:28 WBC 4.4 L (4.8-10.8) X10*3/uL RBC 3.33 L (4.20-5.50) X10*6/uL Hgb 8.5 L (12.0-16.0) g/dl Hct 27.0 L (37.0-47.0) % MCV 81.1 (80.0-98.0) fL MCH 25.5 L (27.0-33.0) pg MCHC 31.5 (31.0-35.0) g/dl RDW 18.4 H (11.0-16.0) % Plt Count 272 D (160-400) X10*3/uL MPV 9.1 L (9.4-12.3) fL Immature Gran % (Auto) 0.2 (0.0-0.4) % Neut % (Auto) 66.2 (45-73) % Lymph % (Auto) 23.1 (20-40) % [place] % (Auto) 5.7 (2-11) % Eos % (Auto) 3.4 (0-4) % Baso % (Auto) 1.4 (0-2) % Lymph # (Auto) 1.0 L (1.2-4.9) X10*3/uL [place] # (Auto) 0.3 (0.1-1.2) X10*3/uL Eos # (Auto) 0.2 (0.0-0.4) X10*3/uL Baso # (Auto) 0.1 (0.0-0.2) X10*3/uL Abs Immat Gran (auto) 0.01 (0.00-0.03) X10*3/uL Absolute Neuts (auto) 2.9 (2.0-8.3) x10*3/uL Absolute Nucleated RBC 0.000 (0.0-0.012) X10*3/uL Nucleated RBC % (auto) 0.0 (0.0-0.2) /100WBC Sodium 140 (135-145) mmol/L Potassium 4.3 (3.3-5.1) mmol/L Chloride 113 H (96-108) mmol/L Carbon Dioxide 19 L (22-29) mmol/L Anion Gap 12 (12-20) BUN 15 (9-16) mg/dL Creatinine 1.46 H (0.5-1.4) mg/dL Estim Creat Clear Calc 58.0 Estimated GFR 40 Random Glucose 147 H (60-115) mg/dL Calcium 8.8 (8.4-10.2) mg/dL Magnesium 2.0 (1.6-2.6) mg/dL Total Bilirubin 0.2 (0.0-1.0) mg/dL Direct Bilirubin < 0.2 (0.0-0.5) mg/dL AST 23 (5-31) U/L ALT 10 (0-31) U/L Alkaline Phosphatase 130 H (39-117) U/L Troponin I High Sens < 2.7 (<3.5-17.0) ng/L Total Protein 7.4 (6.5-8.0) g/dL Albumin 3.9 (3.5-5.0) g/dL Lipase 47 (8-78) U/L Urine Color Yellow Urine Appearance Clear Urine pH 6.0 (5.0-9.0) Ur Specific [place] 1.015 (1.005-1.025) Urine Protein 100 (2+) H (Neg-Trace) mg/dL Urine Glucose (UA) Negative (Negative) mg/dL Urine Ketones Trace (Negative) mg/dL Urine Blood Large (3+) H (Negative) Urine Nitrite Negative (Negative) Ur Leukocyte Esterase Negative (Negative) Urine RBC >20 H (0-2) /HPF Urine WBC 0-5 (0-5) /HPF Ur Squamous Epith Cells 0-2 (0-2) /HPF Urine Bacteria None Seen (None Seen) Hyaline Casts 0-2 (0-2) /LPF Urine Test NEGATIVE (NEGATIVE) Influenza Type A (PCR) NEGATIVE (Negative) Influenza Type B (PCR) NEGATIVE (Negative) RSV RNA Qual (PCR) NEGATIVE (Negative) SARS-CoV-2 RNA (RT-PCR) NEGATIVE (Negative) Independent Interpretation I performed an independent interpretation of an: Ultrasound Radiology Impression Discussion of test interpretation with radiology: I have reviewed the radiologist's reading. External Record Review External record reviewed: Inpatient record, Office record, Outpatient record, Prior outpatient labs, Prior outpatient radiology, Primary care record and Outside ED record Tests considered The following testing was considered but not selected: As above Prescription Management I considered prescription management with: Pain Medication Chronic Conditions Patient?s care impacted by: Diabetes and Other Social Determinants Patient?s care significantly limited by Social Determinants of Health including: Other Social Determinant of Health Discharge Plan Discharge Clinical Impression: Chronic abdominal pain, Acute viral syndrome Patient Disposition: Home, Self-Care Instructions: Viral Syndrome (ED), Abdominal Pain (ED) Additional Instructions: Your blood work and ultrasound are reassuring Your urine does have blood in it, this was present last time as well Please have close follow up with her primary care doctor as well as Urology and Gastroenterology for your symptoms If your symptoms persist or worsen you have constant or worsening abdominal pain, persistent nausea/vomiting or diarrhea, or fevers return to the ED Prescriptions: No Action (DME) pen needle, diabetic [BD Rylee 2nd Gen Pen Needle] 32 gauge x 5/32 needle See Rx Instructions .Route Qty: 100 1RF Rx Instructions: As directed insulin lispro 100 unit/mL insulin pen 4 - 5 unit subcut TIDAC 30 Days Qty: 15 0RF oxycodone 5 mg tablet 5 mg PO Q6H PRN (Reason: pain) Qty: 10 0RF Rx Instructions: Partial Fill upon patient request. ondansetron 4 mg tablet,disintegrating 4 mg PO Q6H PRN (Reason: nausea and vomiting) Qty: 10 0RF ondansetron HCl 4 mg tablet 4 mg PO Q6H PRN (Reason: nausea and vomiting) Qty: 10 0RF ondansetron 4 mg tablet,disintegrating 4 mg PO Q8H PRN (Reason: nausea and vomiting) Qty: 7 0RF cyclobenzaprine 10 mg tablet 10 mg PO TID PRN (Reason: muscle spasm) Qty: 15 0RF sertraline 50 mg tablet 50 mg PO DAILY 30 Days Qty: 30 1RF (DME) Dexcom G7 Creative Director Misc See Rx Instructions .Route Qty: 1 0RF Rx Instructions: As directed (DME) Dexcom G7 Sensor Device See Rx Instructions .Route Qty: 1 6RF Rx Instructions: As directed losartan 25 mg tablet 25 mg PO DAILY 90 Days Qty: 90 1RF insulin glargine 100 unit/mL (3 mL) insulin pen 22 unit subcut BEDTIME 30 Days Qty: 15 0RF trazodone 50 mg tablet 25 mg PO DAILY 30 Days Qty: 15 3RF omeprazole 20 mg capsule,delayed release(DR/EC) 20 mg PO DAILY 15 Days Qty: 15 0RF ondansetron 8 mg tablet,disintegrating 8 mg PO Q12H 15 Days Qty: 30 0RF [place] [facility] [place] [facility] [place] [facility] [place] [facility] [place]] Dariusz Garcia PA-C [Primary Care Provider] - 3 days Interventions: ED Discharge Assessment Last Done: 08/31/24 12:54 Discharge Date/Time: 08/31/24 12:54 Print Language: Guinean
[2024-08-31] MEDS: 0.9 % Sodium Chloride 1,000 ML 999 ML IV (09:44)
[2024-08-31 09:49] LABS: MANUAL DIFF FLAG NO
[2024-08-31] MEDS: LORazepam 1 MG TABLET PO (09:49)
[2024-08-31 09:51] LABS: Basophils Absolute Auto 0.1 X10*3/uL (0.0-0.2); Basophils Percent Auto 1.4 % (0-2); Eosinophils Absolute Auto 0.2 X10*3/uL (0.0-0.4); Eosinophils Percent Auto 3.4 % (0-4); Hemoglobin 8.5 g/dl (12.0-16.0); Imm Gran Abs Auto 0.01 X10*3/uL (0.00-0.03); Imm Gran Pct Auto 0.2 % (0.0-0.4); Lymphocytes Percent Auto 23.1 % (20-40); Mean Corpuscular HGB Conc 31.5 g/dl (31.0-35.0); Mean Corpuscular Hemoglobin 25.5 pg (27.0-33.0); Mean Corpuscular Volume 81.1 fL (80.0-98.0); Mean Platelet Volume 9.1 fL (9.4-12.3); Monocytes Absolute Auto 0.3 X10*3/uL (0.1-1.2); Monocytes Percent Auto 5.7 % (2-11); Neutrophils Absolute Auto 2.9 x10*3/uL (2.0-8.3); Neutrophils Percent Auto 66.2 % (45-73); Platelet Count 272 X10*3/uL (160-400); Red Blood Count 3.33 X10*6/uL (4.20-5.50); Red Cell Distribution Width 18.4 % (11.0-16.0); White Blood Count 4.4 X10*3/uL (4.8-10.8)
[2024-08-31 10:06] LABS: Anion Gap 12 (12-20); Blood Urea Nitrogen 15 mg/dL (9-16); Calcium 8.8 mg/dL (8.4-10.2); Carbon Dioxide 19 mmol/L (22-29); Chloride 113 mmol/L (96-108); Estimated Glomerular Filt Rate 40; Glucose Random 147 mg/dL (60-115); Potassium 4.3 mmol/L (3.3-5.1); Sodium 140 mmol/L (135-145)
[2024-08-31 10:14] LABS: Alanine Aminotransferase 10 U/L (0-31); Albumin Level 3.9 g/dL (3.5-5.0); Aspartate Amino Transferase 23 U/L (5-31); Bilirubin Direct < 0.2 mg/dL (0.0-0.5); Bilirubin Total 0.2 mg/dL (0.0-1.0); Lipase 47 U/L (8-78); Total Protein 7.4 g/dL (6.5-8.0); Troponin-I High Sensitivity < 2.7 ng/L (<3.5-17.0)
[2024-08-31 10:17] LABS: Alkaline Phosphatase 130 U/L (39-117)
[2024-08-31 10:25] VITALS: BP 142/78; PULSE 73; RESP 16; O2SAT 100
[2024-08-31 10:36] LABS: Influenza A PCR NEGATIVE (Negative); Influenza B PCR NEGATIVE (Negative); Resp Syncy Virus RNA Qual PCR NEGATIVE (Negative); SARS COV2 PCR INHOUSE NEGATIVE (Negative)
[2024-08-31 10:40] LABS: Appearance Urine Clear; Color Urine Yellow; Glucose Urine UA Negative (Negative); Leukocyte Esterase Urine Negative (Negative); Nitrite Urine Negative (Negative); Specific Gravity - Urine 1.015 (1.005-1.025); UMIC TRIGGER UACC YES; Urine Blood Large (3+) (Negative); Urine Ketones Trace mg/dL (Negative); Urine Protein 100 (2+) mg/dL (Neg-Trace)
[2024-08-31 10:42] LABS: UPreg QC Valid YES; Urine Pregnancy NEGATIVE (NEGATIVE)
[2024-08-31 10:46] LABS: Bacteria Urine None Seen (None Seen); Hyaline Casts Urine 0-2 /LPF (0-2); RBC Urine >20 /HPF (0-2); Squamous Epithelial Cell Urine 0-2 /HPF (0-2); WBC Urine 0-5 /HPF (0-5)
[2024-08-31] MEDS: diphenhydrAMINE HCL 50 MG/ML VIAL IM (10:48)
[2024-08-31] MEDS: Haloperidol Lactate 5 MG/ML VIAL IM (10:49)
[2024-08-31 12:53] VITALS: BP 130/71; PULSE 68; RESP 16; TEMP 36.9; O2SAT 97
[2024-08-31 12:54] VITALS: BP 130/71; PULSE 68; RESP 16; TEMP 36.9; O2SAT 97
== END 2024-08-31 12:54 | disposition home or self-care (01) ==
PROVIDERS: Physician Assistant; Emergency Provider Emergency Medicine; PCP Physician Assistant
DX: R10.9 Unspecified abdominal pain (principal); B34.9 Viral infection, unspecified; R07.9 Chest pain, unspecified; E11.22 Type 2 diabetes mellitus with diabetic chronic kidney disease; I12.9 Hypertensive chronic kidney disease with stage 1 through stage 4 chronic kidney disease, or unspecified chronic kidney disease; N18.9 Chronic kidney disease, unspecified; Z03.818 Encounter for observation for suspected exposure to other biological agents ruled out
CPT/HCPCS: 0241U; 36415; 76775; 80048; 80076; 81001; 81025; 83690; 83735; 84484; 85025; 93005; 96360; 96372; 99284; 99285; J1200; J1630

== ENCOUNTER → 2024-08-31 08:49 | Outpatient (BNV) | payer OTHER, SELFPAY | PROVIDERS: Emergency Provider Emergency Medicine; PCP Physician Assistant; Visit Provider Internal Medicine Cardiovascular Disease | DX: R07.9 Chest pain, unspecified (principal) | CPT/HCPCS: 93010 ==

== ENCOUNTER → 2024-08-31 09:25 | Outpatient (BNV) | payer OTHER, SELFPAY | PROVIDERS: Emergency Provider Emergency Medicine; PCP Physician Assistant; Visit Provider Specialist | DX: R10.9 Unspecified abdominal pain (principal) | CPT/HCPCS: 76775 ==

== ENCOUNTER 2024-09-26 07:57 | Outpatient (AMB) | payer OTHER, SELFPAY ==
--- NOTE | 2024-09-26 07:59 | MHC.OFFVIS ---
Intake Visit Reasons: hematuria/dysuria Intake Note: New patient presents today for initial visit for hematuria Urology Medication:None Blood Thinner:None Antibiotic Allergies:None Allergies morphine [MORPHINE] Allergy (Unknown, Verified 09/26/24 08:00) HIVES raspberry [Raspberry] Allergy (Unknown, Verified 09/26/24 08:00) HIVES nitrofurantoin [From Macrobid] Adverse Reaction (Unknown, Verified 09/26/24 08:00) GI side effects HPI Comments Details: Summer is a 39-year-old male who is here for evaluation due to microscopic hematuria. She denies seeing blood in her urine. She denies history nicotine use. She denies bothersome urinary symptoms. I have discussed microscopic hematuria may be due to but not limited to kidney stones, BPH, cystitis, urinary tract malignancy. I have discussed testing that she has had in the past including renal ultrasound on 08/31/2024; previous evaluation April, with CT imaging without IV contrast, at which time the urinary tract was within normal limits. Discussed work up to include further evaluation of the urinary tract which may include further imaging, urine testing, and cystoscopy. Urinalysis today 1+ blood, 2+ protein. Comorbidity diabetes insulin dependent. I will refer to nephrology. Urine for cytology follow-up office cystoscopy. Results: 08/31/2024-renal ultrasound-normal kidneys 05/07/2023--CTAP--no nephrolithiasis. [facility] Medical History (Updated 09/26/24 @ 08:46 by Wade Horn MD) Mesenteric ischemia Chronic pain disorder Iron deficiency anemia GERD without esophagitis Gastroparesis Nausea Hordeolum externum of right eye Chronic kidney disease Anxiety Diabetes Hypertension Surgical History Hx of right BKA History of right cataract surgery Family History Father Hyperlipidemia Mother Stomach cancer Sister Diabetes Mental health disorder Social History Housing: Apartment Alcohol intake: never Patient Tobacco Use Status: Never used Tobacco e-Cigarette/Vaping Use: Never Used Second Hand Smoke Exposure: No Substance Use Type: Marijuana Advance Directives Date on File: 02/09/21 service: No Current occupational status: employed and disabled 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[employer] Cognitive needs: No Hearing needs: No Vision needs: Yes (annual eye exam) Review of Systems Const All systems reviewed & are unremarkable except as noted in HPI and below Reports no additional complaints Eyes Reports no additional complaints ENT Reports no additional complaints Card Reports no additional complaints Resp Reports no additional complaints GI Reports no additional complaints Reports as per HPI Musc Reports no additional complaints Skin/Breast Reports system reviewed and no additional complaints, except as documented Neuro Reports no additional complaints Psych Reports no additional complaints Endo Reports no additional complaints Soto/Lymph Reports no additional complaints Aller/Immun Reports no additional complaints Physical Exam Const General: cooperative, healthy appearing and no acute distress Orientation/consciousness: patient oriented x3 HEENT Head: Yes normal to inspection, Yes normocephalic and Yes atraumatic Eyes Conjunctivae: conjunctivae normal Neck Neck: Yes normal visual inspection and Yes trachea midline Chest Chest palpation & inspection: normal inspection of the chest Resp Effort & Inspection: normal respiratory effort Cardio Rate: regular rate GI Inspection: Yes normal to inspection Neuro General: patient oriented x3 Psych Appearance: grossly normal Results AMB Urinalysis, Automated UA Leukoctes 0 Aziza/uL Last Edit by Tammy Aguilera CMA on 09/26/24 08:08 UA Nitrite Negative Last Edit by Tammy Aguilera CMA on 09/26/24 08:08 UA Urobilinogen 0.2 mg/dL Last Edit by Tammy Aguilera CMA on 09/26/24 08:08 UA Protein 100 mg/dL Last Edit by Tammy Aguilera CMA on 09/26/24 08:08 UA pH 6.0 Last Edit by Tammy Aguilera CMA on 09/26/24 08:08 UA Blood 25 Johan/uL Last Edit by Tammy Aguilera CMA on 09/26/24 08:08 UA Specific [place] 1.025 Last Edit by Tammy Aguilera CMA on 09/26/24 08:08 UA Ketone Negative Last Edit by Tammy Aguilera CMA on 09/26/24 08:08 UA Bilirubin 0 mg/dL Last Edit by Tammy Aguilera CMA on 09/26/24 08:08 UA Glucose 0 mg/dL Last Edit by Tammy Aguilera CMA on 09/26/24 08:08 Results Reviewed Results Reviewed: Laboratory Last Values Urine pH (Auto) 6.0 09/26/24 08:04 Specific [place] (Auto) 1.025 09/26/24 08:04 Urine Protein (Auto) 100 mg/dL 09/26/24 08:04 Glucose (UA)(Auto) 0 mg/dL 09/26/24 08:04 Urine Ketones (Auto) Negative 09/26/24 08:04 Urine Blood (Auto) 25 Johan/uL 09/26/24 08:04 Urine Nitrite (Auto) Negative 09/26/24 08:04 Urine Bilirubin (Auto) 0 mg/dL 09/26/24 08:04 Urine Urobilinogen (Auto) 0.2 mg/dL 09/26/24 08:04 Leukocyte Esterase (Auto) 0 Aziza/uL 09/26/24 08:04 Date of Service: 08/31/24 CLINICAL HISTORY: R flank pain, dysuria US Renal Comparison: None Findings: Right kidney normal size and echotexture, 10.8 cm length. Left kidney normal size and echotexture, 9.0 cm length. No hydronephrosis of either kidney. Normal color Doppler IMPRESSION: 1. Normal kidneys. Date of Service: 05/07/23 CT ABDOMEN AND PELVIS WITHOUT CONTRAST CLINICAL INFORMATION: Right flank pain COMPARISON: CT abdomen pelvis 11/13/2021 TECHNIQUE: Multidetector volumetric imaging was performed from the superior aspect of the liver through the pubic symphysis. Sagittal and coronal reformatted images were obtained on the technologist's workstation. This CT examination was performed using dose optimization techniques as appropriate, variously including the following: *Automated exposure control *Adjustment of mA and/or kV according to patient size (this includes techniques or standardized protocols for targeted exams where dose is matched to indication/reason for exam; i.e. extremities or head) *Use of iterative reconstruction technique DLP: 492 mGy-cm FINDINGS: LUNG BASES: The visualized lung bases are unremarkable. LIVER, GALLBLADDER, AND BILIARY TREE: The liver is normal in size, shape, and attenuation. No focal hepatic lesion or biliary ductal dilatation is present. The gallbladder is unremarkable with no evidence of radiopaque gallstones, gallbladder wall thickening, or obvious pericholecystic inflammatory changes. PANCREAS: Unremarkable. SPLEEN: Unremarkable. ADRENAL GLANDS: Unremarkable. KIDNEYS AND URETERS: The kidneys are normal in size and attenuation with lobular borders.. No hydronephrosis, hydroureter, or calculi seen. Calcifications seen in the kidneys are vascular. No perinephric stranding. BLADDER: Unremarkable. GASTROINTESTINAL TRACT: The small and large bowel are unremarkable. The appendix is unremarkable. ABDOMINAL WALL: No significant hernia is appreciated. A gastric stimulator is present in the left upper quadrant subcutaneous tissues. LYMPH NODES: No retroperitoneal lymphadenopathy VASCULAR: Calcific atherosclerotic changes are present in the aorta and iliofemoral vessels. There is no evidence of an abdominal aortic aneurysm. PELVIC VISCERA: The uterus and adnexa are unremarkable. OSSEOUS STRUCTURES: Unremarkable. IMPRESSION: A cause for the patient's right flank pain has not been found. There is no nephrolithiasis. Vascular calcifications are present in the kidneys Assessment & Plan Assessment & Plan (1) Proteinuria: Code(s): R80.9 - Proteinuria, unspecified Category: Medical (2) Hematuria: Code(s): R31.9 - Hematuria, unspecified Category: Medical (3) Diabetes: Code(s): E11.9 - Type 2 diabetes mellitus without complications Category: Medical Plan I will refer to nephrology. Urine for cytology follow-up office cystoscopy. Orders: Orders AMB Urinalysis Automated Today R31.9 - Hematuria, unspecified Referrals Nephrology Referral R80.9 - Proteinuria, unspecified Patient Instructions: The patient had an opportunity to ask questions regarding treatment plan. The patient expressed understanding and agreement with the above treatment plan. The patient is aware they should contact our office by phone for worsening of their current condition or the appearance of new symptoms. Compliance is encouraged with any medications and followup testing that is ordered. It is a privilege to be allowed the opportunity to participate in the urologic care of your patient. If you have any questions or concerns regarding treatment for the above conditions please do not hesitate to contact me. The office telephone contact is [phone]. This note is constructed in part using voice recognition software. While every effort has been made to ensure accuracy basketball assembler errors may have been included. Yours sincerely, Wade Horn MD Coding Level of Care Code New Pt Level 4 (07958) Diagnoses Proteinuria R80.9 Hematuria R31.9 Diabetes E11.9
--- OUTSIDE RECORDS SUMMARY | 2024-09-26 08:00 | XMS_ITS | Clinical Summary ---
Author Organization [facility] Address [address] [place] [address] Care Team Providers Care Government Affairs Director Name Role Phone Dariusz Garcia Primary Care [...] December 21, 2019. 30 tablet 12/21/19 Active Additional Information Patient not taking.Reason: Other, [...] (12/19/2019): Added automatically from request for surgery [id number] Family History Medical History Relation Name Comments [...] (Ages 21-65) 2005 Lipid Panel 12/13/2020 12/14/2019 COVID-19 Vaccine ( season) 2024 Mammogram 2024 Hemoglobin A1C 08/15/2024 02/15/2024, 12/15/2019 Influenza Vaccine 12/13/2024 02/12/2020, , 04/04/2016, Additional history exists Creatinine with GFR 02/14/2025 02/15/2024, 02/14/2024, 01/13/2024, [...] 6.2(H) <5.7 % 02/15/2024 7:35 AM EDT [facility] Comment: A1c% ? Interpretation 5.7 - 6.0 ?Increase risk of diabetes 6.1 - 6.4 ?Higher risk of diabetes > or = 6.5 ?? Consistent with diabetes Diabetes Care, 33(Supp 1):S1-S61, 2010 Estimated Average Glucose 131 mg/dL 02/15/2024 7:35 AM EDT [facility] Blood Blood specimen / Unknown 02/15/2024 6:38 AM EDT 02/15/2024 7:14 AM EDT Jaimie Billings MD LAB BLOOD ORDERABLES Final R esult [address] [address], [address] [address] * (ABNORMAL) Basic Metabolic Panel (02/15/2024 6:38 AM EDT) Glucose 188(H) 65 - 99 mg/dL 02/15/2024 7:42 AM [facility] Comment:Fasting: <100 mg/dL, Non-Fasting: <200 mg/dL (ADA 2004) Blood Urea Nitrogen (BUN) 30(H) 8 - 21 mg/dL 02/15/2024 7:42 AM [facility] Creatinine 2.3(H) 0.4 - 1.1 mg/dL 02/15/2024 7:42 AM [facility] eGFR 27(L) >59 02/15/2024 7:42 AM [facility] Comment:CKD-EPI (2020) in mL /min/1.73 sq meters. Sodium 136 136 - 145 mmol/L 02/15/2024 7:42 AM [facility] Potassium 3.4 3.4 - 5.3 mmol/L 02/15/2024 7:42 AM [facility] Chloride 96(L) 98 - 107 mmol/L 02/15/2024 7:42 AM [facility] CO2 27 22 - 33 mmol/L 02/15/2024 7:42 AM [facility] Anion Gap 13 7 - 17 02/15/2024 7:42 AM [facility] Calcium 8.9 8.7 - 10.5 mg/dL 02/15/2024 7:42 AM [facility] BUN/Creatinine Ratio 13 10.0 - 25.0 Ratio 02/15/2024 7:42 AM [facility] Blood (Plasma/Serum) 02/15/2024 6:38 AM EDT 02/15/2024 7:15 AM EDT us Jaimie Billings MD LAB BLOOD ORDERABLES Final R esult [address] [address], [address] [address] * Lipid Panel (12/14/2019 12:59 AM EDT) [...] Health Maintenance Insurance MEDICAID OUT OF [facility] MEDICAID OUT OF [facility] Advance Directives * Full Code (Latest Code [...] Decision Thoroughly Discussed with: Patient Care Teams Government Affairs Director Relationship Specialty Start Date End Date Dariusz Garcia PA [address] [place] [phone] PCP - General 12/14/19
--- OUTSIDE RECORDS SUMMARY | 2024-09-26 08:00 | XMS_ITS | Patient Health Record ---
Author Organization [facility] Address [address] [place] [address] Care Team Providers Care Historical Site Guide Name Role Phone Dariusz Garcia Primary Care Provider Unavailab Matt Payton Unavailable [phone] Adrian Do Unavailable Unavailable Reason For Referral No Information Plan Of Treatment No Information Insurance Providers Payer Name Payer Address Payer Phone Subscriber Number Group Number Insured Name Patient Relationship to Insured Coverage Start Date Coverage End Date [facility] [address] [address] [place], [place] [id number] YI KAUR Self - patient is the insured
--- OUTSIDE RECORDS SUMMARY | 2024-09-26 08:00 | XMS_ITS | Clinical Summary ---
Author Organization [facility] Address [address] [place] [address] Care Team Providers Care Hose Stripper Name Role Phone Cecilia Stauffer APRN Primary Care Provider [phone] Allergies Active Allergy Reactions Criticality Noted Date [...] Advance Directives For more information, please contact: [phone] Latest Code Status on File Code Status Date Activated Date Inactivated Comments Full Code 03/13/2015 10:23 PM 03/16/2015 8:28 PM Thi s code status was ascertained in the following way: discussion with patient. Care Teams Hose Stripper Relationship Specialty Start Date End Date Cecilia Stauffer APRN [address] [place] [address] PCP - General Dental Scheduling Coordinator 03/13/15
--- OUTSIDE RECORDS SUMMARY | 2024-09-26 08:00 | XMS_ITS | Clinical Summary ---
Author Organization [facility] Address [address] [address] Care Team Providers Care Well Driller Name Role Phone Rebecca Ambrose MD Primary Care Provider [phone] Allergies Active Allergy Reactions Criticality Noted Date [...] (07/30/2020): Added automatically from request for surgery [id number] Epigastric pain 12/13/2019 01/28/2021 Overview (10/29/2020): Added automatically from request for surgery [id number] Hypertension 01/28/2014 01/28/2021 Disorder of nervous system [...] - PCV) 04/29/2020 04/29/2019, 03/25/2013, 02/26/2011 Diabetes: Ophthalmology Exam 06/12/2020 Diabetes: Pedal Pulse Checked 06/12/2020 Diabetes: Sensory Foot Exam 06/12/2020 Diabetes: Visual Foot Exam 06/12/2020 Diabetes: Hemoglobin A1C 05/17/2024 02/15/2024, 04/14 Influenza Vaccine (Season Ended) 2025 Pneumococcal Vaccine: 50+ Years Discontinued 04/29/2019, 03/25/2013, 02/26/2011 Insurance Care Teams Well Driller Relationship Specialty Start Date End Date Rebecca Ambrose MD [facility] [place] [address] PCP - General 05/25/20
== END 2024-09-26 08:41 | disposition home or self-care (01) ==
LOC: HO.HUSH 07:58
PROVIDERS: PCP Physician Assistant; Visit Provider Urology
DX: R80.9 Proteinuria, unspecified (principal); R31.9 Hematuria, unspecified; E11.9 Type 2 diabetes mellitus without complications
CPT/HCPCS: 99204

== ENCOUNTER 2024-09-26 07:57 | Outpatient (REF) | payer OTHER, SELFPAY ==
--- OUTSIDE RECORDS SUMMARY | 2024-09-26 14:14 | XMS_ITS | Clinical Summary ---
Author Organization [facility] Address [address] [address] Care Team Providers Care Welder Name Role Phone Rebecca Ambrose MD Primary Care Provider [phone] Allergies Active Allergy Reactions Criticality Noted Date [...] (07/30/2020): Added automatically from request for surgery [id number] Epigastric pain 12/13/2019 01/28/2021 Overview (10/29/2020): Added automatically from request for surgery [id number] Hypertension 01/28/2014 01/28/2021 Disorder of nervous system [...] Discontinued 04/29/2019, 03/25/2013, 02/26/2011 Insurance Care Teams Welder Relationship Specialty Start Date End Date Rebecca Ambrose MD [facility] [place] [address] PCP - General 05/25/20
--- OUTSIDE RECORDS SUMMARY | 2024-09-26 14:14 | XMS_ITS | Clinical Summary ---
Author Organization [facility] Address [address] [place] [address] Care Team Providers Care Gas Specialist Name Role Phone Cecilia Stauffer APRN Primary Care Provider [phone] Allergies Active Allergy Reactions Criticality Noted Date [...] Advance Directives For more information, please contact: [phone] Latest Code Status on File Code Status Date Activated Date Inactivated Comments Full Code 03/13/2015 10:23 PM 03/16/2015 8:28 PM Thi s code status was ascertained in the following way: discussion with patient. Care Teams Gas Specialist Relationship Specialty Start Date End Date Cecilia Stauffer APRN [address] [place] [address] PCP - General Culture Media Laboratory Assistant 03/13/15
--- OUTSIDE RECORDS SUMMARY | 2024-09-26 14:14 | XMS_ITS | Clinical Summary ---
Author Organization [facility] Address [address] [place] [address] Care Team Providers Care Lion Hunter Name Role Phone Dariusz Garcia Primary Care [...] (12/19/2019): Added automatically from request for surgery [id number] Family History Medical History Relation Name Comments [...] 6.2(H) <5.7 % 02/15/2024 7:35 AM EDT [facility] Comment: A1c% ? Interpretation 5.7 - 6.0 ?Increase risk of diabetes 6.1 - 6.4 ?Higher risk of diabetes > or = 6.5 ?? Consistent with diabetes Diabetes Care, 33(Supp 1):S1-S61, 2010 Estimated Average Glucose 131 mg/dL 02/15/2024 7:35 AM EDT [facility] Blood Blood specimen / Unknown 02/15/2024 6:38 AM EDT 02/15/2024 7:14 AM EDT Jaimie Billings MD LAB BLOOD ORDERABLES Final R esult [address] [address], [address] [address] * (ABNORMAL) Basic Metabolic Panel (02/15/2024 6:38 AM EDT) Glucose 188(H) 65 - 99 mg/dL 02/15/2024 7:42 AM [facility] Comment:Fasting: <100 mg/dL, Non-Fasting: <200 mg/dL (ADA 2004) Blood Urea Nitrogen (BUN) 30(H) 8 - 21 mg/dL 02/15/2024 7:42 AM [facility] Creatinine 2.3(H) 0.4 - 1.1 mg/dL 02/15/2024 7:42 AM [facility] eGFR 27(L) >59 02/15/2024 7:42 AM [facility] Comment:CKD-EPI (2020) in mL /min/1.73 sq meters. Sodium 136 136 - 145 mmol/L 02/15/2024 7:42 AM [facility] Potassium 3.4 3.4 - 5.3 mmol/L 02/15/2024 7:42 AM [facility] Chloride 96(L) 98 - 107 mmol/L 02/15/2024 7:42 AM [facility] CO2 27 22 - 33 mmol/L 02/15/2024 7:42 AM [facility] Anion Gap 13 7 - 17 02/15/2024 7:42 AM [facility] Calcium 8.9 8.7 - 10.5 mg/dL 02/15/2024 7:42 AM [facility] BUN/Creatinine Ratio 13 10.0 - 25.0 Ratio 02/15/2024 7:42 AM [facility] Blood (Plasma/Serum) 02/15/2024 6:38 AM EDT 02/15/2024 7:15 AM EDT us Jaimie Billings MD LAB BLOOD ORDERABLES Final R esult [address] [address], [address] [address] * Lipid Panel (12/14/2019 12:59 AM EDT) [...] Health Maintenance Insurance MEDICAID OUT [facility] MEDICAID OUT OF [facility] Advance Directives * Full Code (Latest Code [...] Decision Thoroughly Discussed with: Patient Care Teams Lion Hunter Relationship Specialty Start Date End Date Dariusz Garcia PA [address] [place] [id number] PCP - General 12/14/19
[2024-09-26 17:01] LABS: Urine Cytology See Pathology rpt
== END 2024-09-26 07:58 | disposition home or self-care (01) ==
LOC: HO.LNP 07:57
PROVIDERS: PCP Physician Assistant; Visit Provider Urology
DX: R31.9 Hematuria, unspecified (principal); R80.9 Proteinuria, unspecified; E11.9 Type 2 diabetes mellitus without complications
CPT/HCPCS: 81003; 88112; 99202

== ENCOUNTER 2025-02-11 14:12 | Outpatient (AMB) | payer OTHER, SELFPAY ==
--- NOTE | 2025-02-11 14:31 | A.OFFPC_ITS ---
Vital Signs 02/11/25 14:32 Height 5 ft 8 in Weight 182 lb 4 oz BMI 27.7 BP 126/66 Blood Pressure Location Lt brachial Position Sitting Pulse 78 Pulse Source Pulse Oximeter Temp 97.3 F Temp Source Temporal Artery Scan Pulse Oximetry (%) 97 Oxygen Delivery Method Room Air Intake Visit Reasons: DM Intake Note: Patient is here to follow up on DM. Sanding Machine Operator Or Tender Required: No Oyster Cultivator: Present Accompanied by: CLERICAL METHODS ANALYST Allergies morphine (MORPHINE) Allergy (Unknown, Verified 02/11/25 14:54) HIVES raspberry (Raspberry) Allergy (Unknown, Verified 02/11/25 14:54) HIVES nitrofurantoin (From Macrobid) Adverse Reaction (Unknown, Verified 02/11/25 14:54) GI side effects Medication List - Last Reconciled 02/11/25 by Dariusz Garcia PA-C [right below-knee permanent prosthesis As directed] blood-glucose sensor (Dexcom G7 Sensor device) As directed blood-glucose,payroll coordinator,cont (Dexcom G7 Comfort Station Attendant) As directed insulin glargine 22 units (0.22 mL) subcut BEDTIME 30 days insulin lispro 4 - 5 units (0.04 - 0.05 mL) subcut TIDAC 30 days metoclopramide HCl 5 mg (5 mL) PO TID 3 days ondansetron 8 mg PO Q12H 15 days pen needle, diabetic (BD Rylee 2nd Gen Pen Needle) As directed Tobacco use date assessed: 02/11/25 Dental Screening Dental Screen Date: 02/11/25 Did you have a dental visit in the last 12 months?: No Did you have a dental problem in the last 6 months where you did not have access to dental care?: No Was dental information given to patient?: No HPI DM HPI Details Patient is a 39year-old female here today for follow-up visit ? Patient has a past medical history significant for type 1 diabetes complicated by gastroparesis awaiting gastric pacemaker, nephropathy, CKD stage 3, retinal hemorrhage, chronic anemia Type 1 diabetes complicated by gastroparesis and CKD stage 3: Today's A1c acceptable at 5.8. Patient continues on insulin therapy with good effect on her sugars. She does CKD stage 3 likely secondary to her diabetes. Will continue to follow renal function. Advised on continuing to stay away from any nephrotoxins. Gastroparesis: Patient followed by [place] gastro[facility] for gastroparesis and now on liquid form on Reglan. Patient open to the idea of getting a mammogram Laboratory Tests 10/07/23 01/25/24 07/18/24 06:15 10:01 14:04 RBC 3.48 L Hgb 8.6 L Creatinine 2.26 H Hgb A1c (Clinic) 6.4 H 08/31/24 02/11/25 09:43 14:30 RBC Hgb Creatinine 1.46 H Hgb A1c (Clinic) 5.8 PFSH Medical History Mesenteric ischemia Chronic pain disorder Iron deficiency anemia GERD without esophagitis Gastroparesis Nausea Hordeolum externum of right eye Chronic kidney disease Anxiety Diabetes Hypertension Surgical History Hx of right BKA History of right cataract surgery Family History Father Hyperlipidemia Mother Stomach cancer Sister Diabetes Mental health disorder Social History Housing: Apartment Alcohol intake: never Patient Tobacco Use Status: Never used Tobacco e-Cigarette/Vaping Use: Never Used Second Hand Smoke Exposure: No Substance Use Type: Marijuana Advance Directives Date on File: 02/09/21 service: No Current occupational status: employed and disabled 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 1. Little interest or pleasure in doing things: several days 2. Feeling down, depressed, or hopeless: several days 3. Trouble falling or staying asleep, or sleeping too much: several days 4. Feeling tired or having little energy: several days 5. Poor appetite or overeating: several days 6. Feeling bad about yourself - or that you are a failure or have let yourself or your family down: several days 7. Trouble concentrating on things, such as reading the newspaper or watching television: several days 8. Moving or speaking so slowly that other people could have noticed. Or the opposite - being so fidgety or restless that you have been moving around a lot more than usual: not at all 9. Thoughts that you would be better off or of hurting yourself in some way: not at all Total score: 7 Depression Screening Interpretation: Positive Depression Screening Follow-up: Existing condition and Declines treatment Depression Screening Done: Yes 38290 - PHQ-9 Billing: Yes Source: Developed by Drs. Matt Daniels, Caroline Rodriguez, Geovani Hylton and colleagues, with an educational jolynn from [employer]. Thrive Questionnaire Date Thrive assessed: 02/11/25 I am a: Patient What is your living situation today?: I do not have a steady places to live I am temporarily staying with others Within the past 12 months, did the food you bought not last and you didn't have the money to get more?: Never true Within the past 12 months, did you worry whether your food would run out before you got money to buy more?: Often true Do you have trouble paying for medicines?: Yes Do you have trouble getting transportation to medical appointments?: No Do you have trouble paying your heating and electricity bill?: No Do you have trouble taking care of your child, family member or friend?: No Do you have trouble with day-to-day activities such as bathing, preparing meals, shopping, managing finances, etc.?: I choose not to answer this question Are you currently unemployed and looking for a job?: I choose not to answer this question Are you interested in more education?: I choose not to answer this question Please select the resources that you would like help with: Transportation Currently or been in a relationship where the following occur: I choose not to answer THRIVE Score: 2 AUDIT C Alcohol Use Questionnaire (AUDIT-C) 1. How often do you have a drink containing alcohol?: Never Total Score: 0 KARINA-7 AMB Questionnaire KARINA-7 Date KARINA - 7 assessed: 02/11/25 Feeling nervous, anxious, or on edge: 0 = Not at all Not being able to stop or control worryin = Not at all Worrying too much about different things: 0 = Not at all Trouble relaxin = Not at all Being so restless that it is hard to sit still: 0 = Not at all Becoming easily annoyed or irritable: 0 = Not at all Feeling afraid as if something awful might happen: 0 = Not at all Total KARINA-7 score (0-4 normal; 5-9 mild; 10-14 moderate; 15-21 severe): 0 Source: Developed by Drs. Matt Daniels, Caroline Rodriguez, Geovani Hylton and colleagues, with an educational jolynn from [employer]. KARINA-7 Assessment Billing KARINA-7 Assessment Tool: KARINA-7 Assessment 73197 Review of Systems Const Denies headache(s) Eyes Denies loss of vision ENT Denies vertigo, Denies dizziness, Denies headache(s) and Denies sore throat Card Denies chest pain, Denies leg edema and Denies lightheadedness Resp Denies cough, Denies hemoptysis and Denies wheezing GI Denies abdominal pain, Denies melena, Denies constipation, Denies diarrhea and Denies vomiting Denies urinary frequency, Denies dysuria and Denies urinary urgency Musc Denies arthralgias, Denies joint swelling, Denies numbness and Denies tingling Neuro Denies Abnormal speech present, Denies behavioral changes, Denies vertigo, Denies dizziness, Denies headache(s), Denies loss of vision, Denies memory loss, Denies numbness and Denies tingling Psych Denies anxiety, Denies behavioral changes, Denies depression, Denies memory loss and Denies panic attacks Soto/Lymph Denies easy bleeding and Denies easy bruising Aller/Immun Denies wheezing Physical exam (Primary Care) Vital Signs: Last Vital Signs Temp 97.3 F 02/11/25 14:32 Pulse 78 02/11/25 14:32 BP 126/66 02/11/25 14:32 Pulse Ox 97 02/11/25 14:32 Oxygen Delivery Method Room Air 02/11/25 14:32 BMI result Body Mass Index 27.7 Tobacco/Smoking Status: Tobacco use Status Tobacco use date assessed 02/11/25 02/11/25 14:41 Patient Tobacco Use Status Never used Tobacco 02/11/25 14:41 e-Cigarette/Vaping Use Never Used 02/11/25 14:41 PHQ-9: PHQ-9 Score PHQ-9: Total score 7 02/11/25 15:04 Depression Screening Interpretation: Positive Depression Screening Follow-up: Existing condition and Declines treatment Thrive Assessment: Date of Thrive Assessment Date Thrive assessed 02/11/25 02/11/25 14:41 Currently or been in a relationship where the following occur: I choose not to answer Const General: healthy appearing, no acute distress, alert and awake Nutritional Appearance: well nourished Orientation/consciousness: oriented to person, oriented to place and oriented to time HENMT Ears: TM's normal bilaterally General nose exam: Normal nasal mucous membranes and turbinates present Eyes Conjunctivae: conjunctivae normal Sclerae: sclerae normal Pupils: Equal, round and reactive pupils present Neck Neck: Yes no lymphadenopathy and Yes no JVD Thyroid: Thyroid normal Carotids: no bruits Resp Effort & Inspection: normal respiratory effort and not tachypneic Auscultation: no crackles, no rales, no rhonchi and no wheezes Cardio Rate: regular rate Rhythm: regular rhythm Heart sounds: no murmurs and normal S1 and S2 GI Palpation (GI): Soft to palpation, nontender, no hepatomegaly and no splenomegaly Auscultation: normal bowel sounds Skin General skin exam: no rashes or lesions noted and dry skin Neuro General: oriented to person, oriented to place and oriented to time Cranial nerves: Yes Equal, round and reactive pupils present Speech: No Abnormal speech present Gait exam (Neuro): Normal gait present Motor exam (neuro): no tremor noted Extrem Right upper extremity: full ROM Left upper extremity: full ROM Right lower extremity: full ROM; no edema Left lower extremity: full ROM; no edema Psych Mental Status: mental status grossly normal Speech and movement: Normal speech and movement present Affect: normal affect Attitude: cooperative Thought process: Normal thought process present Results AMB Hemoglobin A1c AMB Hemoglobin A1c 5.8 % Last Edit by KHANG Bernstein on 02/11/25 14:44 Results Reviewed Results Reviewed: Laboratory Last Values Hgb A1c (Clinic) 5.8 % (4.0-6.0) 02/11/25 14:30 Coding Level of Care Code Est Pt Level 4 (47995) Diagnoses Type 1 diabetes mellitus with diabetic polyneuropathy E10.42 Diabetes mellitus complication detail: with polyneuropathy Diabetes mellitus complication status: with neurologic complications 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 E13.43 History of right below knee amputation Z89.511 MDD (major depressive disorder), recurrent episode, moderate F33.1 CKD stage 3 due to type 1 diabetes mellitus E10.22; N18.30 Additional Codes KARINA-7 Assessment Billing - KARINA-7 Assessment Tool: KARINA-7 Assessment 17234 ([id number]) PHQ-9 - 39785 - PHQ-9 Billing: Yes ([id number]) Assessment & Plan Assessment & Plan (1) Type 1 diabetes: Code(s): E10.9 - Type 1 diabetes mellitus without complications Category: Medical Qualifiers: Diabetes mellitus complication detail: with polyneuropathy Diabetes mellitus complication status: with neurologic complications Qualified Code(s): E10.42 - Type 1 diabetes mellitus with diabetic polyneuropathy Plan: Today's A1c of 5.8. Patient has been a long-time type 1 diabetic and currently not followed by an manager sql. 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 Continues to follow gastroenterology in now on liquid form of Reglan (3) History of right below knee amputation: Code(s): Z89.511 - Acquired absence of right leg below knee Category: Surgical Plan: Patient doing well with ambulation, does have a below-knee prosthesis that has been functioning well. (4) MDD (major depressive disorder), recurrent episode, moderate: Code(s): F33.1 - Major depressive disorder, recurrent, moderate Category: Medical Plan: Patient's PHQ-9 score score positive for depression which has been existing condition for her. She is not interested in any mental health medications. She does use marijuana on daily basis which helps her depression and anxiety. (5) CKD stage 3 due to type 1 diabetes mellitus: Code(s): E10.22 - Type 1 diabetes mellitus with diabetic chronic kidney disease; N18.30 - Chronic kidney disease, stage 3 unspecified Category: Medical Plan: Patient does have chronic kidney disease stage 3. Creatinine usually around 1.4-1.6. Most recent creatinine at 1.4 Advised patient to stay well hydrated Will continue to abstain from any nephrotoxins Orders: Orders AMB Hemoglobin A1c 02/11/25 E10.42 - Type 1 diabetes mellitus with diabetic polyneuropathy, E11.9 - Type 2 diabetes mellitus without complications Comprehensive [place]. Panel Fast 02/11/25 E11.9 - Type 2 diabetes mellitus without complications Lipid Panel 02/11/25 E11.9 - Type 2 diabetes mellitus without complications Complete Blood Count no Diff 02/11/25 E11.9 - Type 2 diabetes mellitus without complications MM screening mammo BI 02/11/25 E11.9 - Type 2 diabetes mellitus without complications, Z12.31 - Encounter for screening mammogram for malignant neoplasm of breast Microalbumin, Random (w Creat) 02/11/25 E11.9 - Type 2 diabetes mellitus without complications
[2025-02-11 14:32] VITALS: BP 126/66; PULSE 78; TEMP 36.3; O2SAT 97; BMI 27.7
--- OUTSIDE RECORDS SUMMARY | 2025-02-11 15:34 | XMS_ITS | Clinical Summary ---
Author Organization [facility] Address [address] [place] [address] Care Team Providers Care Outside Cutter Hand Name Role Phone Dariusz Garcia Primary Care [...] (12/19/2019): Added automatically from request for surgery [id number] Family History Medical History Relation Name Comments [...] 93 02/15/2024 8:22 PM EDT Temperature 34.7 C (94.5 F) 02/15/2024 8:22 PM EDT Respiratory Rate 20 02/15/2024 8:22 PM EDT [...] Ophthalmology Exam 1994 HIV Screening 1997 Microalbumin/Creatinine Rati o Urine 2002 DTaP/Tdap/Td Vaccines (1 - Tdap) 2003 Hepatitis B Vaccines (1 of 3 - 19+ 3-dose series) 2003 Pneumococcal Vaccine: Pediat rafal (0-5 Years) and At-Risk Patients (6 to 49 Years) (1 of 2 - PCV) 2003 Pap Smear (Ages 21-65) 2005 HPV Vaccines (1 - 3-dose SCD M series) 2011 Lipid Panel 12/13/2020 12/14/2019 Mammogram 2024 Hemoglobin A1C 08/15/2024 02/15/2024, 12/15/2019 Influenza Vaccine 12/13/2024 02/12/2020, , 04/04/2016, Additional history exists COVID-19 Vaccine (2023-2 5 season) 2025 Creatinine with GFR 02/14/2025 02/15/2024, 02/14/2024, 01/13/2024, Additional history exists Procedures Procedure Name Priority Date/Time Associated Diagnosis [...] 6.2(H) <5.7 % 02/15/2024 7:35 AM EDT Comment: A1c% Interpretation 5.7 - 6.0 Increase risk of diabetes 6.1 - 6.4 Higher risk of diabetes > or = 6.5 Consistent with diabetes Diabetes Care, 33(Supp 1):S1-S61, 2009 Estimated Average Glucose 131 mg/dL 02/15/2024 7:35 AM EDT Blood Blood specimen / Unknown 02/15/2024 6:38 AM EDT 02/15/2024 7:14 AM EDT Jaimie Billings MD LAB BLOOD [place] [address], [place] [address] * (ABNORMAL) Basic Metabolic Panel (02/15/2024 6:38 AM EDT) Glucose 188(H) 65 - 99 mg/dL 02/15/2024 7:42 AM [facility] Comment:Fasting: <100 mg/dL, Non-Fasting: <200 mg/dL (ADA 2004) Blood Urea Nitrogen (BUN) 30(H) 8 - 21 mg/dL 02/15/2024 7:42 AM [facility] Creatinine 2.3(H) 0.4 - 1.1 mg/dL 02/15/2024 7:42 AM [facility] eGFR 27(L) >59 02/15/2024 7:42 AM [facility] Comment:CKD-EPI (2020) in mL /min/1.73 sq meters. Sodium 136 136 - 145 mmol/L 02/15/2024 7:42 AM [facility] Potassium 3.4 3.4 - 5.3 mmol/L 02/15/2024 7:42 AM [facility] Chloride 96(L) 98 - 107 mmol/L 02/15/2024 7:42 AM [facility] CO2 27 22 - 33 mmol/L 02/15/2024 7:42 AM [facility] Anion Gap 13 7 - 17 02/15/2024 7:42 AM [facility] Calcium 8.9 8.7 - 10.5 mg/dL 02/15/2024 7:42 AM [facility] BUN/Creatinine Ratio 13 10.0 - 25.0 Ratio 02/15/2024 7:42 AM [facility] Blood (Plasma/Serum) 02/15/2024 6:38 AM EDT 02/15/2024 7:15 AM EDT us Jaimie Billings MD LAB [place]LOOD [place] [address], [place] [address] * Lipid Panel (12/14/2019 12:59 AM EDT) Cholesterol, Total 161 <200 mg/dL [facility] Triglycerides 106 <150 mg/dL [facility] Cholesterol, HDL 63 >39 mg/dL [facility] Estimated LDL 77 <130 mg/dL [facility] Comment: NCEP Guidelines: < 100 mg/dL Optimal 100 - 129 mg/dL Near Optimal/Above Optimal 130 - 159 mg/dL Borderline High 160 - 189 mg/dL High >/= 190 mg/dL Very High Cholesterol/HDL Ratio 2.6 0.0 - 5.0 Ratio [facility] Comment: Relative Risk Ratio - Male Ratio - Female 0.5 3.4 3.3 1.0 5.0 4.4 2.0 9.6 7.1 3.0 23.4 11.0 12/14/2019 12:5 9 AM EDT 12/14/2019 1:06 AM EDT Paolo Dias III, DO LAB BLOOD ORDERABLES Margarita nathan Result [facility] from Last 3 Months or Most Recently Relevant to Health Maintenance Insurance MEDICAID OUT OF STATE [facility] MEDICAID OUT OF STATE [facility] Advance Directives * Full Code (Latest Code [...] Decision Thoroughly Discussed with: Patient Care Teams Outside Cutter Hand Relationship Specialty [place] [address] [place] [phone] PCP - General 12/14/19
--- OUTSIDE RECORDS SUMMARY | 2025-02-11 15:34 | XMS_ITS | Clinical Summary ---
Author Organization [facility] Address [address] [place] [address] Care Team Providers Care Installer Metal Flooring Name Role Phone Cecilia Stauffer APRN Primary Care Provider [phone] Allergies Active Allergy Reactions Criticality Noted Date [...] 96 06/12/2022 3:29 PM EST Temperature 36.8 C (98.3 F) 06/12/2022 3:29 PM EST Respiratory Rate 22 06/12/2022 3:29 PM EST [...] (P ap Smear) 2005 Influenza Vaccine (#1) 2025 RSV Ped < 20 months Aged Out No longe r eligible based on patient's age to complete this topic Advance Directives For more information, please contact: [phone] Latest Code Status on File Code Status Date Activated Date Inactivated Comments Full Code 03/13/2015 10:23 PM 03/16/2015 8:28 PM Thi s code status was ascertained in the following way: discussion with patient. Care Teams Installer Metal Flooring Relationship Specialty Start Date End Date Cecilia Stauffer APRN [address] [place] [address] PCP - General Firmware Developer 03/13/15
--- OUTSIDE RECORDS SUMMARY | 2025-02-11 15:34 | XMS_ITS | Patient Health Record ---
Author Organization [facility] Address [address] [place] [address] Care Team Providers Care Disc Ruler Operator Name Role Phone Dariusz Garcia Primary Care Provider Unavailab Matt Payton Unavailable [phone] Adrian Do Unavailable Unavailable Reason For Referral No Information Plan Of Treatment No Information Insurance Providers Payer Name Payer Address Payer Phone Subscriber Number Group Number Insured Name Patient Relationship to Insured Coverage Start Date Coverage End Date [facility] [address] [address] [place], [place] [id number] YI KAUR Self - patient is the insured
== END 2025-02-11 15:05 | disposition home or self-care (01) ==
LOC: HO.HMCH 14:12
PROVIDERS: PCP Physician Assistant; Visit Provider Physician Assistant
DX: E11.9 Type 2 diabetes mellitus without complications (principal); E10.42 Type 1 diabetes mellitus with diabetic polyneuropathy

== ENCOUNTER → 2025-02-11 14:12 | Outpatient (BNVA) | payer OTHER, SELFPAY | PROVIDERS: PCP Physician Assistant; Visit Provider Physician Assistant | DX: E10.43 Type 1 diabetes mellitus with diabetic autonomic (poly)neuropathy (principal); E10.22 Type 1 diabetes mellitus with diabetic chronic kidney disease; N18.30 Chronic kidney disease, stage 3 unspecified; F33.1 Major depressive disorder, recurrent, moderate; Z89.511 Acquired absence of right leg below knee | CPT/HCPCS: 83036; 96127; 99212 ==

== ENCOUNTER 2025-03-27 15:24 | Emergency (ER) | payer OTHER, SELFPAY ==
[2025-03-27 15:32] VITALS: BP 106/58; PULSE 86; RESP 16; TEMP 37; O2SAT 100; BMI 26.5
--- NOTE | 2025-03-27 15:37 | ED_ITS ---
HPI - General Adult General Chief complaint: General Medical Stated complaint: Nausea Vomiting Diarrhea History of Present Illness HPI narrative: patient left before completement of treatment by ED provider. Related Data Previous Rx's ?Medication ?Instructions ?Recorded pen needle, diabetic 32 gauge x #100 ea 08/10/23 (BD Rylee 2nd Gen Pen Needle) blood-glucose sensor (Dexcom G7 #1 ea 09/28/23 Sensor device) blood-glucose,luncheonette operator,cont #1 ea 09/28/23 (Dexcom G7 Drill Press Tender) insulin glargine 100 unit/mL (3 22 unit (0.22 mL) subc ut BEDTIME 01/25/24 mL) subcutaneous pen 30 days #15 mL insulin lispro 100 unit/mL 4 - 5 unit (0.04 - 0.05 mL) subcut 09/16/24 subcutaneous pen TIDAC 30 days #15 mL ondansetron 8 mg disintegrating 8 mg PO Q12H 15 days # 30 tabs 09/16/24 tablet right below-knee permanent #1 ea 10/10/24 prosthesis metoclopramide HCl 5 mg/5 mL oral 5 mg (5 mL) PO TID 3 days #45 mL 02/03/25 solution acetaminophen 500 mg capsule 1,000 mg (2 x 500 mg) PO Q6H PRN 03/28/25 fever or pain 5 days #20 caps cyclobenzaprine 5 mg tablet 5 mg PO TID PRN muscle spa sm 2 03/28/25 days #7 tabs ondansetron 4 mg disintegrating 4 mg PO Q8H PRN nausea and 03/28/25 tablet vomiting #4 tabs Allergies Allergy/AdvReac Type Severity Reaction Status Date / Time morphine (MORPHINE) Allergy Unknown HIVES Verified 03/28/25 10:10 raspberry (Raspberry) Allergy Unknown HIVES Verified 03/28/25 10:10 nitrofurantoin (From AdvReac Unknown GI side Verified 03/28/25 10:10 Macrobid) effects PMFSH Past Medical History Medical History Mesenteric ischemia Chronic pain disorder Iron deficiency anemia GERD without esophagitis Gastroparesis Nausea Hordeolum externum of right eye Chronic kidney disease Anxiety Diabetes Hypertension Surgical History Hx of right BKA History of right cataract surgery Family History Family History Father Hyperlipidemia Mother Stomach cancer Sister Diabetes Mental health disorder Social History Social History Housing: Apartment Alcohol intake: never Patient Tobacco Use Status: Never used Tobacco e-Cigarette/Vaping Use: Never Used Second Hand Smoke Exposure: No Substance Use Type: Marijuana Advance Directives: Yes Advance Directives on File: Yes Advance Directives Date on File: 02/09/21 service: No Current occupational status: employed and disabled 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 Patient states symptoms started after eating shrimp. Labs ordered Medical Decision Making Lab Data 03/27/25 15:50 03/27/25 15:50 Labs: Lab Results 03/27/25 Range/Units 15:50 WBC 7.2 (4.8-10.8) X10*3/uL RBC 3.03 L (4.20-5.50) X10*6/uL Hgb 7.4 L (12.0-16.0) g/dl Hct 25.0 L (37.0-47.0) % MCV 82.5 (80.0-98.0) fL MCH 24.4 L (27.0-33.0) pg MCHC 29.6 L (31.0-35.0) g/dl RDW 17.2 H (11.0-16.0) % Plt Count 425 H D (160-400) X10*3/uL MPV 9.0 L (9.4-12.3) fL Immature Gran % (Auto) 0.3 (0.0-0.4) % Neut % (Auto) 59.2 (45-73) % Lymph % (Auto) 28.3 (20-40) % [place] % (Auto) 8.1 (2-11) % Eos % (Auto) 3.1 (0-4) % Baso % (Auto) 1.0 (0-2) % Lymph # (Auto) 2.0 (1.2-4.9) X10*3/uL [place] # (Auto) 0.6 (0.1-1.2) X10*3/uL Eos # (Auto) 0.2 (0.0-0.4) X10*3/uL Baso # (Auto) 0.1 (0.0-0.2) X10*3/uL Abs Immat Gran (auto) 0.02 (0.00-0.03) X10*3/uL Absolute Neuts (auto) 4.2 (2.0-8.3) x10*3/uL Absolute Nucleated RBC 0.000 (0.0-0.012) X10*3/uL Nucleated RBC % (auto) 0.0 (0.0-0.2) /100WBC Sodium 140 (135-145) mmol/L Potassium 4.3 (3.3-5.1) mmol/L Chloride 112 H (96-108) mmol/L Carbon Dioxide 20 L (22-29) mmol/L Anion Gap 12 (12-20) BUN 16 (9-16) mg/dL Creatinine 1.72 H (0.5-1.4) mg/dL Estim Creat Clear Calc 47.9 Estimated GFR 33 Random Glucose 169 H (60-115) mg/dL Calcium 9.0 (8.4-10.2) mg/dL Total Bilirubin 0.2 (0.0-1.0) mg/dL AST 19 (5-31) U/L ALT 9 (0-31) U/L Alkaline Phosphatase 124 H (39-117) U/L Total Protein 7.3 (6.5-8.0) g/dL Albumin 4.1 (3.5-5.0) g/dL Lipase 46 (8-78) U/L Influenza Type A (PCR) NEGATIVE (Negative) Influenza Type B (PCR) NEGATIVE (Negative) RSV RNA Qual (PCR) NEGATIVE (Negative) SARS-CoV-2 RNA (RT-PCR) NEGATIVE (Negative) S. pyogenes GrpA YOANDY Negative (Negative) Discharge Plan Discharge Clinical Impression: Nausea & vomiting Patient Disposition: Left W/O Completing Treatment Prescriptions: No Action (DME) pen needle, diabetic [BD Rylee 2nd Gen Pen Needle] 32 gauge x 5/32 needle See Rx Instructions .Route Qty: 100 1RF Rx Instructions: As directed ondansetron 8 mg tablet,disintegrating 8 mg PO Q12H 15 Days Qty: 30 1RF insulin lispro 100 unit/mL insulin pen 4 - 5 unit subcut TIDAC 30 Days Qty: 15 1RF acetaminophen 500 mg capsule 1,000 mg PO Q6H PRN (Reason: fever or pain) 5 Days Qty: 20 0RF ondansetron 4 mg tablet,disintegrating 4 mg PO Q8H PRN (Reason: nausea and vomiting) Qty: 4 0RF cyclobenzaprine 5 mg tablet 5 mg PO TID PRN (Reason: muscle spasm) 2 Days Qty: 7 0RF (DME) Dexcom G7 Drill Press Tender Misc See Rx Instructions .Route Qty: 1 0RF Rx Instructions: As directed (DME) Dexcom G7 Sensor Device See Rx Instructions .Route Qty: 1 6RF Rx Instructions: As directed insulin glargine 100 unit/mL (3 mL) insulin pen 22 unit subcut BEDTIME 30 Days Qty: 15 0RF (DME) right below-knee permanent prosthesis See Rx Instructions .Route .MEDSUPPLY Qty: 1 0RF Rx Instructions: As directed metoclopramide HCl 5 mg/5 mL solution 5 mg PO TID 3 Days Qty: 45 2RF Rx Instructions: Take for 3 days during a gastroparesis flare up Discharge Date/Time: 03/27/25 20:15
[2025-03-27 16:01] LABS: MANUAL DIFF FLAG NO
[2025-03-27 16:05] LABS: Hematocrit 25.0 % (37.0-47.0); Hemoglobin 7.4 g/dl (12.0-16.0); Imm Gran Abs Auto 0.02 X10*3/uL (0.00-0.03); Imm Gran Pct Auto 0.3 % (0.0-0.4); Lymphocytes Absolute Auto 2.0 X10*3/uL (1.2-4.9); Mean Corpuscular HGB Conc 29.6 g/dl (31.0-35.0); Mean Corpuscular Hemoglobin 24.4 pg (27.0-33.0); Mean Corpuscular Volume 82.5 fL (80.0-98.0); NRBC Abs Auto 0.000 X10*3/uL (0.0-0.012); NRBC Pct Auto 0.0 /100WBC (0.0-0.2); Platelet Count 425 X10*3/uL (160-400); Red Blood Count 3.03 X10*6/uL (4.20-5.50); White Blood Count 7.2 X10*3/uL (4.8-10.8)
[2025-03-27 16:18] LABS: Alanine Aminotransferase 9 U/L (0-31); Albumin Level 4.1 g/dL (3.5-5.0); Alkaline Phosphatase 124 U/L (39-117); Anion Gap 12 (12-20); Aspartate Amino Transferase 19 U/L (5-31); Blood Urea Nitrogen 16 mg/dL (9-16); Calcium 9.0 mg/dL (8.4-10.2); Carbon Dioxide 20 mmol/L (22-29); Chloride 112 mmol/L (96-108); Creatinine Clr Calc Pharmacy 47.9; Estimated Glomerular Filt Rate 33; Lipase 46 U/L (8-78); Potassium 4.3 mmol/L (3.3-5.1); Sodium 140 mmol/L (135-145); Total Protein 7.3 g/dL (6.5-8.0)
[2025-03-27 16:22] LABS: IDNOW Serial# 58CA691E; Strep A Nucleic Acid Negative (Negative)
[2025-03-27 16:45] LABS: Resp Syncy Virus RNA Qual PCR NEGATIVE (Negative); SARS COV2 PCR INHOUSE NEGATIVE (Negative)
--- OUTSIDE RECORDS SUMMARY | 2025-03-27 20:11 | XMS_ITS | Clinical Summary ---
Author Organization [facility] Address [address] [place] [address] Care Team Providers Care Carton Marker Machine Name Role Phone Cecilia Stauffer APRN Primary Care Provider [phone] Allergies Active Allergy Reactions Criticality Noted Date [...] Advance Directives For more information, please contact: [phone] Latest Code Status on File Code Status Date Activated Date Inactivated Comments Full Code 03/13/2015 10:23 PM 03/16/2015 8:28 PM Thi s code status was ascertained in the following way: discussion with patient. Care Teams Carton Marker Machine Relationship Specialty Start Date End Date Cecilia Stauffer APRN [address] [place] [address] PCP - General Cardboard Cutter 03/13/15
--- OUTSIDE RECORDS SUMMARY | 2025-03-27 20:11 | XMS_ITS | Clinical Summary ---
Author Organization [facility] Address [address] [place] [address] Care Team Providers Care Cigar Brander Name Role Phone Dariusz Garcia Primary Care [...] (12/19/2019): Added automatically from request for surgery [id number] Family History Medical History Relation Name Comments [...] (Ages 21-65) 2005 Lipid Panel 12/13/2020 12/14/2019 Mammogram 2024 Hemoglobin A1C 08/15/2024 02/15/2024, 12/15/2019 Influenza Vaccine 12/13/2024 02/12/2020, , 04/04/2016, Additional history exists COVID-19 Vaccine (1 - 2023-2 5 season) 2025 Creatinine with GFR 02/14/2025 02/15/2024, 02/14/2024, 01/13/2024, Additional history exists HPV Vaccines (No Doses Required) Completed Procedures Procedure Name Priority Date/Time Associated Diagnosis [...] 6.2(H) <5.7 % 02/15/2024 7:35 AM EDT [facility] Comment: A1c% Interpretation 5.7 - 6.0 Increase risk of diabetes 6.1 - 6.4 Higher risk of diabetes > or = 6.5 Consistent with diabetes Diabetes Care, 33(Supp 1):S1-S61, 2010 Estimated Average Glucose 131 mg/dL 02/15/2024 7:35 AM EDT [facility] Blood Blood specimen / Unknown 02/15/2024 6:38 AM EDT 02/15/2024 7:14 AM EDT Jaimie Billings MD LAB BLOOD [place] [address], [place] [address] * (ABNORMAL) Basic Metabolic Panel (02/15/2024 6:38 AM EDT) Glucose 188(H) 65 - 99 mg/dL 02/15/2024 7:42 AM [facility] Comment:Fasting: <100 mg/dL, Non-Fasting: <200 mg/dL (ADA 2004) Blood Urea Nitrogen (BUN) 30(H) 8 - 21 mg/dL 02/15/2024 7:42 AM [facility] Creatinine 2.3(H) 0.4 - 1.1 mg/dL 02/15/2024 7:42 AM [facility] eGFR 27(L) >59 02/15/2024 7:42 AM [facility] Comment:CKD-EPI (2020) in mL /min/1.73 sq meters. Sodium 136 136 - 145 mmol/L 02/15/2024 7:42 AM [facility] Potassium 3.4 3.4 - 5.3 mmol/L 02/15/2024 7:42 AM [facility] Chloride 96(L) 98 - 107 mmol/L 02/15/2024 7:42 AM [facility] CO2 27 22 - 33 mmol/L 02/15/2024 7:42 AM [facility] Anion Gap 13 7 - 17 02/15/2024 7:42 AM [facility] Calcium 8.9 8.7 - 10.5 mg/dL 02/15/2024 7:42 AM [facility] BUN/Creatinine Ratio 13 10.0 - 25.0 Ratio 02/15/2024 7:42 AM [facility] Blood (Plasma/Serum) 02/15/2024 6:38 AM EDT 02/15/2024 7:15 AM EDT us Jaimie Billings MD LAB BLOOD [place] [address], [address] [address] * Lipid Panel (12/14/2019 12:59 AM EDT) [...] Health Maintenance Insurance MEDICAID OUT OF STATE [facility] [place] OUT OF [place] [facility] Advance Directives * Full Code (Latest Code [...] Decision Thoroughly Discussed with: Patient Care Teams Cigar Brander Relationship Specialty [place] [address] [place] [phone] PCP - General 12/14/19
--- OUTSIDE RECORDS SUMMARY | 2025-03-27 20:11 | XMS_ITS | Patient Health Record ---
Author Organization [facility] Address [address] [place] [address] Care Team Providers Care Nut Roaster Helper Name Role Phone Dariusz Garcia Primary Care Provider Unavailab Matt Payton Unavailable [phone] Adrian Do Unavailable Unavailable Reason For Referral No Information Plan Of Treatment No Information Insurance Providers Payer Name Payer Address Payer Phone Subscriber Number Group Number Insured Name Patient Relationship to Insured Coverage Start Date Coverage End Date [facility] [address] [address] [place], [place] [id number] YI KAUR Self - patient is the insured
== END 2025-03-27 20:15 | disposition left against medical advice (07) ==
PROVIDERS: Physician Assistant; Emergency Provider Emergency Medicine; PCP Physician Assistant
DX: R11.2 Nausea with vomiting, unspecified (principal); I10 Essential (primary) hypertension; Z79.899 Other long term (current) drug therapy; Z03.818 Encounter for observation for suspected exposure to other biological agents ruled out
CPT/HCPCS: 80053; 83690; 85025; 87637; 87651; 99281

== ENCOUNTER 2025-03-28 10:04 | Emergency (ER) | payer OTHER, SELFPAY ==
[2025-03-28 10:07] VITALS: BP 111/55; PULSE 90; RESP 18; TEMP 36.1; O2SAT 99; BMI 26.5
--- NOTE | 2025-03-28 10:07 | ED_ITS ---
HPI - General Adult General Chief complaint: General Medical Stated complaint: Stomach Pain Time Seen by Provider: 03/28/25 11:11 Source: patient Mode of arrival: ambulatory Limitations: no limitations History of Present Illness ED Provider: HPI narrative: 39-year-old female, currently is sleeping in the area that is poorly heated, sleeps on air mattress, presenting with low back pain, but also flu-like symptoms sore throat, body aches, has had no productive cough no chest pain, decreased appetite is reported no vomiting but feeling nausea, no abdominal pain. She has history of type 1 diabetes, CKD and history of right BKA. Smokes marijuana denies IV drug use or alcohol use Related Data Previous Rx's ?Medication ?Instructions ?Recorded pen needle, diabetic 32 gauge x #100 ea 08/10/23 (BD Rylee 2nd Gen Pen Needle) blood-glucose sensor (Dexcom G7 #1 ea 09/28/23 Sensor device) blood-glucose,nnp,cont #1 ea 09/28/23 (Dexcom G7 Roll On Worker) insulin glargine 100 unit/mL (3 22 unit (0.22 mL) subc ut BEDTIME 01/25/24 mL) subcutaneous pen 30 days #15 mL insulin lispro 100 unit/mL 4 - 5 unit (0.04 - 0.05 mL) subcut 09/16/24 subcutaneous pen TIDAC 30 days #15 mL ondansetron 8 mg disintegrating 8 mg PO Q12H 15 days # 30 tabs 09/16/24 tablet right below-knee permanent #1 ea 10/10/24 prosthesis metoclopramide HCl 5 mg/5 mL oral 5 mg (5 mL) PO TID 3 days #45 mL 02/03/25 solution acetaminophen 500 mg capsule 1,000 mg (2 x 500 mg) PO Q6H PRN 03/28/25 fever or pain 5 days #20 caps cyclobenzaprine 5 mg tablet 5 mg PO TID PRN muscle spa sm 2 03/28/25 days #7 tabs ondansetron 4 mg disintegrating 4 mg PO Q8H PRN nausea and 03/28/25 tablet vomiting #4 tabs Allergies Allergy/AdvReac Type Severity Reaction Status Date / Time morphine (MORPHINE) Allergy Unknown HIVES Verified 03/28/25 10:10 raspberry (Raspberry) Allergy Unknown HIVES Verified 03/28/25 10:10 nitrofurantoin (From AdvReac Unknown GI side Verified 03/28/25 10:10 Macrobid) effects Review of Systems 2 Constitutional: Constitutional: Reports as per HPI [facility] Past Medical History Medical History Mesenteric ischemia Chronic pain disorder Iron deficiency anemia GERD without esophagitis Gastroparesis Nausea Hordeolum externum of right eye Chronic kidney disease Anxiety Diabetes Hypertension Surgical History Hx of right BKA History of right cataract surgery Family History Family History Father Hyperlipidemia Mother Stomach cancer Sister Diabetes Mental health disorder Social History Social History Housing: Apartment Alcohol intake: never Patient Tobacco Use Status: Never used Tobacco e-Cigarette/Vaping Use: Never Used Second Hand Smoke Exposure: No Substance Use Type: Marijuana Advance Directives: Yes Advance Directives on File: Yes Advance Directives Date on File: 02/09/21 service: No Current occupational status: employed and disabled 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 uvula midline, no tonsillar exudates ? Neck: Supple, no LAD ? CV: S1-S2 ? Resp: ?No wheezing rales rhonchi no stridor moving air well ? Abd: ?Bowel sounds are present, no tenderness no rebound no rigidity ? MSK: rightBKA, full range of motion without edema left lower extremity, paraspinal muscle tenderness on the left side no midline tenderness no rashes ? Skin: Warm, dry, intact, no rashes noted over the body of the face ? Neuro: ?Alert and oriented x3, no obvious facial asymmetry noted, cranial nerves 2-12 intact Vital Signs: Vital Signs - 24 hr 03/28/25 10:07 Temperature 97 F Pulse Rate 90 Respiratory Rate 18 Blood Pressure 111/55 L Pulse Oximetry 99 Oxygen Delivery Method Room Air BMI result Body Mass Index 26.5 Course Course Course Narrative: This is a rapid medical exam performed by Clinton Aragon NP: Additional HPI, ROS, PE not included below will be deferred to primary provider. Patient is a 39y/o F with pmhx of T1DM, HTN, CKD 3, GERD presenting with complaint of body aches, sore throat, nausea x 2 days. Presented yesterday but left due to wait time. Viral and strep swabs were negative. Plan: labs, will repeat viral and strep swabs Medical Decision Making Medical Decision Making [facility] Narrative: 11:25 AM 03/28/2025 (Dr. Mihir Ortiz): overall well-appearing, reports viral flu-like symptoms, sleeping on the air mattress right now, having some lower back spasms, she has had no fevers no flank pain to suspect pyelonephritis no urinary symptoms, blood work did not reveal any evidence to suspect underlying DKA, she reports decreased p.o. intake and not using insulin because of that for the past few days but her abdominal exam is benign I do not feel that further need such as CT or ultrasound to evaluate for any biliary pathology is indicated at this time blood work reveals CKD without significant JONNY, as well as baseline anemia Differential Diagnosis Differential Diagnoses: The differential diagnosis associated with the presentation includes ( viral syndrome, pneumonia, DKA, dehydration, JONNY pancreatitis, cholecystitis) Admission/Observation Consideration of admission/observation: Escalation of care including admission/observation considered Lab Data [facility] Lab Attestation statement: I reviewed the patient's lab results. 03/28/25 10:24 03/28/25 10:24 Labs: Lab Results 03/28/25 03/28/25 Range/Units 10:24 10:30 WBC 5.3 (4.8-10.8) X10*3/uL RBC 3.29 L (4.20-5.50) X10*6/uL Hgb 8.0 L (12.0-16.0) g/dl Hct 27.1 L (37.0-47.0) % MCV 82.4 (80.0-98.0) fL MCH 24.3 L (27.0-33.0) pg MCHC 29.5 L (31.0-35.0) g/dl RDW 17.1 H (11.0-16.0) % Plt Count 410 H (160-400) X10*3/uL MPV 9.0 L (9.4-12.3) fL Immature Gran % (Auto) 0.2 (0.0-0.4) % Neut % (Auto) 66.0 (45-73) % Lymph % (Auto) 23.2 (20-40) % Willacy % (Auto) 5.8 (2-11) % Eos % (Auto) 3.7 (0-4) % Baso % (Auto) 1.1 (0-2) % Lymph # (Auto) 1.2 (1.2-4.9) X10*3/uL Willacy # (Auto) 0.3 (0.1-1.2) X10*3/uL Eos # (Auto) 0.2 (0.0-0.4) X10*3/uL Baso # (Auto) 0.1 (0.0-0.2) X10*3/uL Abs Immat Gran (auto) 0.01 (0.00-0.03) X10*3/uL Absolute Neuts (auto) 3.5 (2.0-8.3) x10*3/uL Absolute Nucleated RBC 0.000 (0.0-0.012) X10*3/uL Nucleated RBC % (auto) 0.0 (0.0-0.2) /100WBC VBG pH 7.39 (7.32-7.43) VBG pCO2 35 mmHg VBG pO2 46 mmHg VBG HCO3 21 L (22-26) mmol/L VBG O2 Saturation 74.0 % VBG Base Excess -2.6 mmol/L Sodium 139 (135-145) mmol/L Potassium 4.8 (3.3-5.1) mmol/L Chloride 112 H (96-108) mmol/L Carbon Dioxide 19 L (22-29) mmol/L Anion Gap 13 (12-20) BUN 13 (9-16) mg/dL Creatinine 1.62 H (0.5-1.4) mg/dL Estim Creat Clear Calc 50.9 Estimated GFR 35 Random Glucose 162 H (60-115) mg/dL Calcium 9.1 (8.4-10.2) mg/dL Total Bilirubin 0.2 (0.0-1.0) mg/dL AST 23 (5-31) U/L ALT 11 (0-31) U/L Alkaline Phosphatase 162 H (39-117) U/L Total Protein 7.5 (6.5-8.0) g/dL Albumin 4.2 (3.5-5.0) g/dL Beta-Hydroxybutyrate 0.18 (0.02-0.27) mmol/L Beta HCG, Quant < 2 mIU/mL S. pyogenes GrpA YOANDY Negative (Negative) Tests considered The following testing was considered but not selected: CT abdomen and pelvis ultrasound gallbladder Chronic Conditions Patient?s care impacted by: Diabetes Discharge Plan Discharge Clinical Impression: Body aches, Low back pain Additional Instructions: your workup today is very much reassuring there was no evidence that you have fevers or abnormal vital signs Your swab negative for COVID or influenza or strep throat, your blood work did not reveal any evidence accept for chronic kidney disease without dehydration, your sugar is actually under pretty good control, and there was no evidence for any complications due to history of diabetes There was no indication that you require further treatment with the antibiotics or IV fluids, I am going to provide ondansetron you can use for nausea and vomiting and Tylenol for body aches because of the kidney disease may not supposed to really use ibuprofen, I am giving you cyclobenzaprine which is used for muscle spasms you can take it before bedtime it will make you drowsy do not mix with alcohol or marijuana, or try driving while taking this medication make sure to stay hydrated follow up with the PCP any other issues or concerns come back to the ER Prescriptions: New acetaminophen 500 mg capsule 1,000 mg PO Q6H PRN (Reason: fever or pain) 5 Days Qty: 20 0RF ondansetron 4 mg tablet,disintegrating 4 mg PO Q8H PRN (Reason: nausea and vomiting) Qty: 4 0RF cyclobenzaprine 5 mg tablet 5 mg PO TID PRN (Reason: muscle spasm) 2 Days Qty: 7 0RF No Action (DME) pen needle, diabetic [BD Rylee 2nd Gen Pen Needle] 32 gauge x 5/32 needle See Rx Instructions .Route Qty: 100 1RF Rx Instructions: As directed ondansetron 8 mg tablet,disintegrating 8 mg PO Q12H 15 Days Qty: 30 1RF insulin lispro 100 unit/mL insulin pen 4 - 5 unit subcut TIDAC 30 Days Qty: 15 1RF (DME) Dexcom G7 Roll On Worker Misc See Rx Instructions .Route Qty: 1 0RF Rx Instructions: As directed (DME) Dexcom G7 Sensor Device See Rx Instructions .Route Qty: 1 6RF Rx Instructions: As directed insulin glargine 100 unit/mL (3 mL) insulin pen 22 unit subcut BEDTIME 30 Days Qty: 15 0RF (DME) right below-knee permanent prosthesis See Rx Instructions .Route .MEDSUPPLY Qty: 1 0RF Rx Instructions: As directed metoclopramide HCl 5 mg/5 mL solution 5 mg PO TID 3 Days Qty: 45 2RF Rx Instructions: Take for 3 days during a gastroparesis flare up Print Language: Nepalese
[2025-03-28 10:30] LABS: MANUAL DIFF FLAG NO
[2025-03-28 10:34] LABS: Venous Blood Gas Refer to POC result
[2025-03-28 10:34] LABS: VBG HCO3 21 mmol/L (22-26); VBG O2 % Saturation 74.0 %
[2025-03-28 10:44] LABS: IDNOW Serial# 08D9AD1C; Strep A Nucleic Acid Negative (Negative)
[2025-03-28 10:54] LABS: Alanine Aminotransferase 11 U/L (0-31); Albumin Level 4.2 g/dL (3.5-5.0); Alkaline Phosphatase 162 U/L (39-117); Anion Gap 13 (12-20); Aspartate Amino Transferase 23 U/L (5-31); Blood Urea Nitrogen 13 mg/dL (9-16); Calcium 9.1 mg/dL (8.4-10.2); Carbon Dioxide 19 mmol/L (22-29); Chloride 112 mmol/L (96-108); Creatinine Clr Calc Pharmacy 50.9; Estimated Glomerular Filt Rate 35; Potassium 4.8 mmol/L (3.3-5.1); Sodium 139 mmol/L (135-145); Total Protein 7.5 g/dL (6.5-8.0)
[2025-03-28 11:01] LABS: Hematocrit 27.1 % (37.0-47.0); Hemoglobin 8.0 g/dl (12.0-16.0); Imm Gran Abs Auto 0.01 X10*3/uL (0.00-0.03); Imm Gran Pct Auto 0.2 % (0.0-0.4); Lymphocytes Absolute Auto 1.2 X10*3/uL (1.2-4.9); Mean Corpuscular HGB Conc 29.5 g/dl (31.0-35.0); Mean Corpuscular Hemoglobin 24.3 pg (27.0-33.0); Mean Corpuscular Volume 82.4 fL (80.0-98.0); NRBC Abs Auto 0.000 X10*3/uL (0.0-0.012); NRBC Pct Auto 0.0 /100WBC (0.0-0.2); Platelet Count 410 X10*3/uL (160-400); Red Blood Count 3.29 X10*6/uL (4.20-5.50); White Blood Count 5.3 X10*3/uL (4.8-10.8)
[2025-03-28 11:19] LABS: Resp Syncy Virus RNA Qual PCR NEGATIVE (Negative); SARS COV2 PCR INHOUSE NEGATIVE (Negative)
[2025-03-28] MEDS: Magnesium Hydrox/Alum Hydrox 30 ML ORAL.SUSP 15 ML PO (11:49)
[2025-03-28] MEDS: Lidocaine HCl Viscous 2 % 15 ML SOLUTION PO (11:51)
--- OUTSIDE RECORDS SUMMARY | 2025-03-28 12:52 | XMS_ITS | Patient Health Record ---
Author Organization [facility] Address [address] [place] [address] Care Team Providers Care Productivity Engineer Name Role Phone Dariusz Garcia Primary Care Provider Unavailab Matt Payton Unavailable [phone] Adrian Do Unavailable Unavailable Reason For Referral No Information Plan Of Treatment No Information Insurance Providers Payer Name Payer Address Payer Phone Subscriber Number Group Number Insured Name Patient Relationship to Insured Coverage Start Date Coverage End Date [facility] [address] [address] [place], [place] [id number] YI KAUR Self - patient is the insured
--- OUTSIDE RECORDS SUMMARY | 2025-03-28 12:52 | XMS_ITS | Clinical Summary ---
Author Organization [facility] Address [address] [place] [address] Care Team Providers Care Grab Hooker Name Role Phone Cecilia Stauffer APRN Primary Care Provider Allergies Active Allergy Reactions [...] Advance Directives For more information, please contact: [phone] Latest Code Status on File Code Status Date Activated Date Inactivated Comments Full Code 03/13/2015 10:23 PM 03/16/2015 8:28 PM Thi s code status was ascertained in the following way: discussion with patient. Care Teams Grab Hooker Relationship Specialty Start Date End Date Cecilia Stauffer APRN [address] [place] [address] PCP - General Sheepskin Pickler 03/13/15
--- OUTSIDE RECORDS SUMMARY | 2025-03-28 12:53 | XMS_ITS | Clinical Summary ---
Author Organization [facility] Address [address] [place] [address] Care Team Providers Care Brownell Operator Name Role Phone Dariusz Garcia Primary [...] (12/19/2019): Added automatically from request for surgery [id number] Family History Medical History Relation Name Comments [...] 6.2(H) <5.7 % 02/15/2024 7:35 AM EDT [facility] Comment: A1c% Interpretation 5.7 - 6.0 Increase risk of diabetes 6.1 - 6.4 Higher risk of diabetes > or = 6.5 Consistent with diabetes Diabetes Care, 33(Supp 1):S1-S61, 2010 Estimated Average Glucose 131 mg/dL 02/15/2024 7:35 AM EDT [facility] Blood Blood specimen / Unknown 02/15/2024 6:38 AM EDT 02/15/2024 7:14 AM EDT Jaimie Billings MD LAB BLOOD ORDERABLES [place] [address], [place] [address] * (ABNORMAL) Basic Metabolic Panel (02/15/2024 6:38 AM EDT) Glucose 188(H) 65 - 99 mg/dL 02/15/2024 7:42 AM [facility] Comment:Fasting: <100 mg/dL, Non-Fasting: <200 mg/dL (ADA 2004) Blood Urea Nitrogen (BUN) 30(H) 8 - 21 mg/dL 02/15/2024 7:42 AM [facility] Creatinine 2.3(H) 0.4 - 1.1 mg/dL 02/15/2024 7:42 AM [facility] eGFR 27(L) >59 02/15/2024 7:42 AM [facility] Comment:CKD-EPI (2020) in mL /min/1.73 sq meters. Sodium 136 136 - 145 mmol/L 02/15/2024 7:42 AM [facility] Potassium 3.4 3.4 - 5.3 mmol/L 02/15/2024 7:42 AM [facility] Chloride 96(L) 98 - 107 mmol/L 02/15/2024 7:42 AM [facility] CO2 27 22 - 33 mmol/L 02/15/2024 7:42 AM [facility] Anion Gap 13 7 - 17 02/15/2024 7:42 AM [facility] Calcium 8.9 8.7 - 10.5 mg/dL 02/15/2024 7:42 AM [facility] BUN/Creatinine Ratio 13 10.0 - 25.0 Ratio 02/15/2024 7:42 AM [facility] Blood (Plasma/Serum) 02/15/2024 6:38 AM EDT 02/15/2024 7:15 AM EDT us Jaimie Billings MD LAB BLOOD [place]AB[place] [address], [address] [address] * Lipid Panel (12/14/2019 12:59 AM EDT) [...] Health Maintenance [place] [facility] [place] [facility] [place]ives * Full Code (Latest Code [...] Decision Thoroughly Discussed with: Patient Care Teams Brownell Operator Relationship Specialty [place] [address] [place] [id number] PCP - General 12/14/19
[2025-03-28 16:05] VITALS: BP 111/55; PULSE 90; RESP 18; TEMP 36.1; O2SAT 99
== END 2025-03-28 16:05 | disposition home or self-care (01) ==
PROVIDERS: Registered Nurse Emergency; Emergency Provider Emergency Medicine; PCP Physician Assistant
DX: M54.50 Low back pain, unspecified (principal); J02.9 Acute pharyngitis, unspecified; R05.9 Cough, unspecified; R11.0 Nausea; E10.22 Type 1 diabetes mellitus with diabetic chronic kidney disease; I12.9 Hypertensive chronic kidney disease with stage 1 through stage 4 chronic kidney disease, or unspecified chronic kidney disease; N18.9 Chronic kidney disease, unspecified; Z03.818 Encounter for observation for suspected exposure to other biological agents ruled out
CPT/HCPCS: 80053; 82010; 82803; 84702; 85025; 87637; 87651; 99283

== ENCOUNTER 2025-05-05 03:43 | Emergency (ER) | payer OTHER, SELFPAY ==
--- NOTE | ~2025-05-05 | CT_ITS ---
CLINICAL HISTORY: abdominal pain CT abdomen and pelvis without contrast Comparison: CT/REG/NE/SR - CT ABDOMEN PELVIS WO IV CON - 05/07/23 19:05 EST Findings: The lung bases are clear. Small sliding-type hiatal hernia. Unremarkable gallbladder and solid organs. No urolithiasis. No bowel obstruction, pneumoperitoneum, or pneumatosis. [id number] volume stool within the rectal vault. Gastric stimulator in place. Pelvic contents unremarkable. Normal appendix. No adenopathy or fluid collections. No vascular dilation. No acute fracture. IMPRESSION: No acute findings. No bowel obstruction, biliary obstruction or obstructive uropathy. Normal appendix. This document has been electronically signed by: Angélica Garnica MD on 05/05/2025 06:19:03
--- NOTE | 2025-05-05 03:47 | ED_ITS ---
HPI - General Adult General Chief complaint: Abdominal Pain Stated complaint: n/v, ab, legs & flank pain, sinus tach Time Seen by Provider: 05/05/25 03:44 Source: patient Mode of arrival: ambulatory Limitations: no limitations History of Present Illness ED Provider: Dr. Scanlon HPI narrative: 40-year-old female history of chronic abdominal pain, diabetes, CKD, iron- deficiency anemia, gastroparesis presented to ER today for abdominal pain and nausea and vomiting. Patient was difficult to talk to as the patient is actively vomiting and appears to be having a panic attack at this time. Related Data Previous Rx's ?Medication ?Instructions ?Recorded pen needle, diabetic 32 gauge x #100 ea 08/10/23/ (BD Rylee 2nd Gen Pen Needle) blood-glucose sensor (Dexcom G7 #1 ea 09/28/23 Sensor device) blood-glucose,foreclosure clerk,cont #1 ea 09/28/23 (Dexcom G7 Incident Response Engineer) insulin glargine 100 unit/mL (3 22 unit (0.22 mL) subc ut BEDTIME 01/25/24 mL) subcutaneous pen 30 days #15 mL insulin lispro 100 unit/mL 4 - 5 unit (0.04 - 0.05 mL) subcut 09/16/24 subcutaneous pen TIDAC 30 days #15 mL ondansetron 8 mg disintegrating 8 mg PO Q12H 15 days # 30 tabs 09/16/24 tablet right below-knee permanent #1 ea 10/10/24 prosthesis metoclopramide HCl 5 mg/5 mL oral 5 mg (5 mL) PO TID 3 days #45 mL 02/03/25 solution acetaminophen 500 mg capsule 1,000 mg (2 x 500 mg) PO Q6H PRN 03/28/25 fever or pain 5 days #20 caps cyclobenzaprine 5 mg tablet 5 mg PO TID PRN muscle spa sm 2 03/28/25 days #7 tabs ondansetron 4 mg disintegrating 4 mg PO Q8H PRN nausea and 03/28/25 tablet vomiting #4 tabs Allergies Allergy/AdvReac Type Severity Reaction Status Date / Time morphine (MORPHINE) Allergy Unknown HIVES Verified 05/05/25 03:50 raspberry (Raspberry) Allergy Unknown HIVES Verified 05/05/25 03:50 nitrofurantoin (From AdvReac Unknown GI side Verified 05/05/25 03:50 Macrobid) effects Review of Systems 2 Review of Systems: Difficult to obtain due to patient's current mentation. [facility] Past Medical History [facility] Narrative: Medical history as mentioned in HPI Medical History Mesenteric ischemia Chronic pain disorder Iron deficiency anemia GERD without esophagitis Gastroparesis Nausea Hordeolum externum of right eye Chronic kidney disease Anxiety Diabetes Hypertension Surgical History Hx of right BKA History of right cataract surgery Family History Family History Father Hyperlipidemia Mother Stomach cancer Sister Diabetes Mental health disorder Social History Social History Housing: Apartment Alcohol intake: never Patient Tobacco Use Status: Never used Tobacco e-Cigarette/Vaping Use: Never Used Second Hand Smoke Exposure: No Substance Use Type: Marijuana Advance Directives: Yes Advance Directives on File: Yes Advance Directives Date on File: 02/09/21 service: No Current occupational status: employed and disabled 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[employer] Cognitive needs: No Hearing needs: No Vision needs: Yes (annual eye exam) Physical Exam ED Exam Exam: General: Loud, waving her arms around, actively vomiting Head: Normacephalic, atraumatic ENT: oral mucosa dry, neck supple, no tracheal deviation Cardiovascular: regular rate, regular rhythm, no murmurs, rubbing, gallops Respiratory: CTAB, no wheeze, rales, rhonchi Gastrointestinal: Soft, non distended, diffuse abdominal tenderness on palpation Extremities: No limb pain or swelling, no calf tenderness Skin: Cool and diaphoretic Psychiatric: Appears to be having a panic attack Vital Signs: Vital Signs - 24 hr 05/05/25 03:48 05/05/25 04:21 05/05/25 05:45 Pulse Rate 53 87 88 Respiratory Rate 26 H 20 14 Blood Pressure 183/161 H 134/76 143/53 H Pulse Oximetry 95 95 98 Oxygen Delivery Method Room Air Room Air Room Air BMI result Body Mass Index 30.0 Course Course Course Narrative: 8:23 AM 05/05/2025 (LAUREL CROUCH): her workup is reassuring She has been seen by care team they have cleared her she has resources in the community through [facility] At this time I am going to discharge her home Medications Administered Discontinued Medications Generic Name Dose Route Start Last Admin Trade Name Reagan PRN Reason Stop Dose Admin Diphenhydramine HCl 25 mg 05/05/25 03:47 05/05/25 04:23 Diphenhydramine Hcl 50 Mg/Ml Vial IVPUSH 05/05/25 03:48 25 mg ONCE ONE Administration Famotidine 20 mg 05/05/25 03:52 05/05/25 04:39 Famotidine/Pf 20 Mg/2 Ml Vial IVPUSH 05/05/25 03:53 20 mg ONCE ONE Administration Hydromorphone HCl 0.5 mg 05/05/25 06:35 05/05/25 06:57 Hydromorphone Hcl 0.5 Mg/0.5 Ml Syringe IVPUSH 05/05/25 06:36 0.5 mg ONCE ONE Administration Protocol Sodium Chloride 1,000 mls @ 999 mls/hr 05/05/25 04:00 05/05/25 06:22 Ns IV 05/05/25 05:00 Infused .Q1H1M THONG Infusion Metoclopramide HCl 10 mg 05/05/25 03:47 05/05/25 04:23 Metoclopramide Hcl 10 Mg/2 Ml Vial IV 05/05/25 03:48 10 mg ONCE ONE Administration Midazolam HCl 4 mg 05/05/25 03:52 05/05/25 03:55 Midazolam Hcl 2 Mg/2 Ml Vial IM 05/05/25 03:53 4 mg ONCE ONE Administration Ondansetron HCl 4 mg 05/05/25 06:35 05/05/25 06:57 Ondansetron Hcl 4 Mg/2 Ml Vial IVPUSH 05/05/25 06:36 4 mg ONCE ONE Administration Pantoprazole Sodium 80 mg 05/05/25 03:52 05/05/25 04:39 Pantoprazole Sodium 40 Mg/10 Ml Vial IVPUSH 05/05/25 03:53 80 mg ONCE ONE Administration Procedures Procedure Narrative Procedure Narrative: Ultrasound guided IV Ultrasound IV was placed in the left forearm vein. Flushes well Draws back well. No complication. Medical Decision Making Medical Decision Making MDM Narrative: 40-year-old female presenting for nausea vomiting abdominal pain. Patient stated that she is scared she needs someone to talk to. She is tearful. Appears to be extremely anxious. Difficult to obtain history from patient in her current state at this time. We will give patient IM Versed. Patient is known to nursing staff for her chronic abdominal pain and nausea and vomiting. We will plan to give patient IV Reglan, IV Benadryl, IV fluids as well. We will obtain abdominal lab work for the patient including type and screen. Nursing staff did noted that patient does appear to have coffee-ground emesis. IV Protonix will be given to the patient. We will check her hemoglobin level as well. IV Pepcid will be given to the patient as well. CT abdomen and pelvis will be obtained. We will perform a dry scan due to history of CKD stage 3. Patient's hemoglobin stable. She does still have some anemia. A 0.8. Previous level is 8. Patient's show some hyperglycemia. Elevated creatinine 1.65. This is similar to her baseline creatinine level. Patient has slight elevation of ketones level. Lipase level is slightly up at 121 Lipase level is elevated however I do not think this is pancreatitis, it is minimally elevated. CT imaging did not show any signs of pancreatitis at all. I did give patient a dose IV Dilaudid here. IV Zofran will be given additionally for the patient has this time. Patient appears to be much more calm down after the IM Versed. No further vomiting episode since. OBS is negative. No signs of GI bleed. Patient is requesting care team evaluation. Differential Diagnosis Differential Diagnoses: The differential diagnosis associated with the presentation includes Gastroparesis, nausea vomiting, gastritis, gastric ulcer, dehydration Lab Data [facility] Lab Attestation statement: I reviewed the patient's lab results. 05/05/25 04:36 05/05/25 04:36 Labs: Lab Results 05/05/25 05/05/25 05/05/25 Range/Units 03:54 04:36 04:41 WBC 8.0 (4.8-10.8) X10*3/uL RBC 3.75 L (4.20-5.50) X10*6/uL Hgb 8.8 L (12.0-16.0) g/dl Hct 30.1 L (37.0-47.0) % MCV 80.3 (80.0-98.0) fL MCH 23.5 L (27.0-33.0) pg MCHC 29.2 L (31.0-35.0) g/dl RDW 17.4 H (11.0-16.0) % Plt Count 388 (160-400) X10*3/uL MPV 9.0 L (9.4-12.3) fL Immature Gran % (Auto) 0.4 (0.0-0.4) % Neut % (Auto) 80.4 H (45-73) % Lymph % (Auto) 11.1 L (20-40) % Carter % (Auto) 6.2 (2-11) % Eos % (Auto) 1.0 (0-4) % Baso % (Auto) 0.9 (0-2) % Lymph # (Auto) 0.9 L (1.2-4.9) X10*3/uL Carter # (Auto) 0.5 (0.1-1.2) X10*3/uL Eos # (Auto) 0.1 (0.0-0.4) X10*3/uL Baso # (Auto) 0.1 (0.0-0.2) X10*3/uL Abs Immat Gran (auto) 0.03 (0.00-0.03) X10*3/uL Absolute Neuts (auto) 6.4 (2.0-8.3) x10*3/uL Absolute Nucleated RBC 0.000 (0.0-0.012) X10*3/uL Nucleated RBC % (auto) 0.0 (0.0-0.2) /100WBC VBG pH 7.36 (7.32-7.43) VBG pCO2 31 mmHg VBG pO2 62 mmHg VBG HCO3 18 L (22-26) mmol/L VBG O2 Saturation 86.0 % VBG Base Excess -6.2 mmol/L Sodium 141 (135-145) mmol/L Potassium 4.4 (3.3-5.1) mmol/L Chloride 111 H (96-108) mmol/L Carbon Dioxide 19 L (22-29) mmol/L Anion Gap 15 (12-20) BUN 16 (9-16) mg/dL Creatinine 1.65 H (0.5-1.4) mg/dL Estim Creat Clear Calc 47.3 Estimated GFR 34 POC Glucose 234 H (60-115) mg/dL Random Glucose 237 H (60-115) mg/dL Calcium 9.2 (8.4-10.2) mg/dL Total Bilirubin 0.2 (0.0-1.0) mg/dL AST 21 (5-31) U/L ALT 11 (0-31) U/L Alkaline Phosphatase 129 H (39-117) U/L Total Protein 7.6 (6.5-8.0) g/dL Albumin 4.3 (3.5-5.0) g/dL Lipase 121 H (8-78) U/L Beta-Hydroxybutyrate 0.47 H (0.02-0.27) mmol/L Stool Occult Blood (NEGATIVE) Blood Type A Positive Antibody Screen NEGATIVE 05/05/25 Range/Units 06:54 WBC (4.8-10.8) X10*3/uL RBC (4.20-5.50) X10*6/uL Hgb (12.0-16.0) g/dl Hct (37.0-47.0) % MCV (80.0-98.0) fL MCH (27.0-33.0) pg MCHC (31.0-35.0) g/dl RDW (11.0-16.0) % Plt Count (160-400) X10*3/uL MPV (9.4-12.3) fL Immature Gran % (Auto) (0.0-0.4) % Neut % (Auto) (45-73) % Lymph % (Auto) (20-40) % Carter % (Auto) (2-11) % Eos % (Auto) (0-4) % Baso % (Auto) (0-2) % Lymph # (Auto) (1.2-4.9) X10*3/uL Carter # (Auto) (0.1-1.2) X10*3/uL Eos # (Auto) (0.0-0.4) X10*3/uL Baso # (Auto) (0.0-0.2) X10*3/uL Abs Immat Gran (auto) (0.00-0.03) X10*3/uL Absolute Neuts (auto) (2.0-8.3) x10*3/uL Absolute Nucleated RBC (0.0-0.012) X10*3/uL Nucleated RBC % (auto) (0.0-0.2) /100WBC VBG pH (7.32-7.43) VBG pCO2 mmHg VBG pO2 mmHg VBG HCO3 (22-26) mmol/L VBG O2 Saturation % VBG Base Excess mmol/L Sodium (135-145) mmol/L Potassium (3.3-5.1) mmol/L Chloride (96-108) mmol/L Carbon Dioxide (22-29) mmol/L Anion Gap (12-20) BUN (9-16) mg/dL Creatinine (0.5-1.4) mg/dL Estim Creat Clear Calc Estimated GFR POC Glucose (60-115) mg/dL Random Glucose (60-115) mg/dL Calcium (8.4-10.2) mg/dL Total Bilirubin (0.0-1.0) mg/dL AST (5-31) U/L ALT (0-31) U/L Alkaline Phosphatase (39-117) U/L Total Protein (6.5-8.0) g/dL Albumin (3.5-5.0) g/dL Lipase (8-78) U/L Beta-Hydroxybutyrate (0.02-0.27) mmol/L Stool Occult Blood NEGATIVE (NEGATIVE) Blood Type Antibody Screen Independent Interpretation I performed an independent interpretation of an: CT Scan Radiology Impression Discussion of test interpretation with radiology: I have reviewed the radiologist's reading. Discharge Plan Discharge Clinical Impression: Chronic abdominal pain Nausea & vomiting Qualifiers: Vomiting type: unspecified Qualified Code(s): R11.2 - Nausea with vomiting, unspecified Patient Disposition: Home, Self-Care Instructions: Acute Nausea and Vomiting (ED), Abdominal Pain (ED) Additional Instructions: your labs are reassuring your CT scan does not show any acute cause of your pain please monitor your symptoms and return for any worsening symptoms or concerns You were seen in our Emergency Department today for treatment of a behavioral health issue. It is important after your visit that you follow up with either your behavioral health provider or a primary care doctor within 7 days.? If you have trouble finding a therapist you can reach out to [address] [phone] The National Suicide and Crisis Lifeline can be reached 7 days a week 24 hours a day.? Call 988 to speak with someone.? Return for any worsening symptoms or concerns such as thoughts of self harm or harm to others. Please call 911 if you feel your mental health is worsening.? Prescriptions: No Action (DME) pen needle, diabetic [BD Rylee 2nd Gen Pen Needle] 32 gauge x 5/32 needle See Rx Instructions .Route Qty: 100 1RF Rx Instructions: As directed ondansetron 8 mg tablet,disintegrating 8 mg PO Q12H 15 Days Qty: 30 1RF insulin lispro 100 unit/mL insulin pen 4 - 5 unit subcut TIDAC 30 Days Qty: 15 1RF acetaminophen 500 mg capsule 1,000 mg PO Q6H PRN (Reason: fever or pain) 5 Days Qty: 20 0RF ondansetron 4 mg tablet,disintegrating 4 mg PO Q8H PRN (Reason: nausea and vomiting) Qty: 4 0RF cyclobenzaprine 5 mg tablet 5 mg PO TID PRN (Reason: muscle spasm) 2 Days Qty: 7 0RF (DME) Dexcom G7 Incident Response Engineer Misc See Rx Instructions .Route Qty: 1 0RF Rx Instructions: As directed (DME) Dexcom G7 Sensor Device See Rx Instructions .Route Qty: 1 6RF Rx Instructions: As directed insulin glargine 100 unit/mL (3 mL) insulin pen 22 unit subcut BEDTIME 30 Days Qty: 15 0RF (DME) right below-knee permanent prosthesis See Rx Instructions .Route .MEDSUPPLY Qty: 1 0RF Rx Instructions: As directed metoclopramide HCl 5 mg/5 mL solution 5 mg PO TID 3 Days Qty: 45 2RF Rx Instructions: Take for 3 days during a gastroparesis flare up Print Language: Mauritian
[2025-05-05 03:48] VITALS: BP 135/70; BP 183/161; PULSE 110; PULSE 53; RESP 26; O2SAT 100; O2SAT 95
--- NOTE | 2025-05-05 03:52 | ECG_ITS ---
Test Reason : TACHYCARDIA Blood Pressure : */* mmHG Vent. Rate : 85 BPM Atrial Rate : 85 BPM P-R Int : 128 ms QRS Dur : 90 ms QT Int : 366 ms P-R-T Axes : 86 -19 54 degrees QTcB Int : 435 ms Normal sinus rhythm Normal ECG When compared with ECG of 31-Aug-2024 08:51, No significant change was found Referred By: Iram Scanlon Electronically Signed By: BRENT PACKER MD
[2025-05-05 03:57] LABS: Glucose, Whole Blood 234 mg/dL (60-115)
[2025-05-05 04:21] VITALS: BP 134/76; PULSE 87; RESP 20; O2SAT 95
[2025-05-05 04:42] LABS: Hematocrit 30.1 % (37.0-47.0); Hemoglobin 8.8 g/dl (12.0-16.0); Imm Gran Abs Auto 0.03 X10*3/uL (0.00-0.03); Imm Gran Pct Auto 0.4 % (0.0-0.4); Lymphocytes Absolute Auto 0.9 X10*3/uL (1.2-4.9); MANUAL DIFF FLAG NO; Mean Corpuscular HGB Conc 29.2 g/dl (31.0-35.0); Mean Corpuscular Hemoglobin 23.5 pg (27.0-33.0); Mean Corpuscular Volume 80.3 fL (80.0-98.0); NRBC Abs Auto 0.000 X10*3/uL (0.0-0.012); NRBC Pct Auto 0.0 /100WBC (0.0-0.2); Platelet Count 388 X10*3/uL (160-400); Red Blood Count 3.75 X10*6/uL (4.20-5.50); White Blood Count 8.0 X10*3/uL (4.8-10.8)
[2025-05-05 04:42] LABS: Venous Blood Gas Refer to POC result
[2025-05-05 04:46] LABS: VBG HCO3 18 mmol/L (22-26); VBG O2 % Saturation 86.0 %
[2025-05-05 04:57] LABS: Alanine Aminotransferase 11 U/L (0-31); Albumin Level 4.3 g/dL (3.5-5.0); Alkaline Phosphatase 129 U/L (39-117); Anion Gap 15 (12-20); Aspartate Amino Transferase 21 U/L (5-31); Blood Urea Nitrogen 16 mg/dL (9-16); Calcium 9.2 mg/dL (8.4-10.2); Carbon Dioxide 19 mmol/L (22-29); Chloride 111 mmol/L (96-108); Creatinine Clr Calc Pharmacy 47.3; Estimated Glomerular Filt Rate 34; Lipase 121 U/L (8-78); Potassium 4.4 mmol/L (3.3-5.1); Sodium 141 mmol/L (135-145); Total Protein 7.6 g/dL (6.5-8.0)
[2025-05-05 05:45] VITALS: BP 143/53; PULSE 88; RESP 14; O2SAT 98
[2025-05-05 07:01] LABS: OBS Int Ctl Valid YES; OBS1 NEGATIVE (NEGATIVE)
--- NOTE | 2025-05-05 07:33 | PC.NURSE ---
CARE team at bedside
--- OUTSIDE RECORDS SUMMARY | 2025-05-05 07:52 | XMS_ITS | Patient Health Record ---
Author Organization [facility] Address [address] [place] [address] Care Team Providers Care Bag Hanger Name Role Phone Dariusz Garcia Primary Care Provider Unavailab Matt Payton Unavailable [phone] Adrian Do Unavailable Unavailable Reason For Referral No Information Plan Of Treatment No Information Insurance Providers Payer Name Payer Address Payer Phone Subscriber Number Group Number Insured Name Patient Relationship to Insured Coverage Start Date Coverage End Date [facility] [address] [address] [place], [place] [id number] YI KAUR Self - patient is the insured
--- OUTSIDE RECORDS SUMMARY | 2025-05-05 07:52 | XMS_ITS | Clinical Summary ---
Author Organization [facility] Address [address] [place] [address] Care Team Providers Care Citizenship Instructor Name Role Phone Dariusz Garcia Primary Care [...] (12/19/2019): Added automatically from request for surgery [id number] Family History Medical History Relation Name Comments [...] 04/04/2016, Additional history exists COVID-19 Vaccine (1 2024-2 6 season) 2025 Creatinine with GFR 02/14/2025 02/15/2024, [...] <5.7 % 02/15/2024 7:35 AM EDT [facility] Comment: A1c% Interpretation 5.7 - 6.0 Increase risk of diabetes 6.1 - 6.4 Higher risk of diabetes > or = 6.5 Consistent with diabetes Diabetes Care, 33(Supp 1):S1-S61, 2010 Estimated Average Glucose 131 mg/dL 02/15/2024 7:35 AM EDT [facility] Blood Blood specimen / Unknown 02/15/2024 6:38 AM EDT 02/15/2024 7:14 AM EDT Jaimie Billings MD LAB BLOOD ORDERABLES [place] [address], [place] [address] * (ABNORMAL) Basic Metabolic Panel (02/15/2024 6:38 AM EDT) Glucose 188(H) 65 - 99 mg/dL 02/15/2024 7:42 AM [facility] Comment:Fasting: <100 mg/dL, Non-Fasting: <200 mg/dL (ADA 2004) Blood Urea Nitrogen (BUN) 30(H) 8 - 21 mg/dL 02/15/2024 7:42 AM [facility] Creatinine 2.3(H) 0.4 - 1.1 mg/dL 02/15/2024 7:42 AM [facility] eGFR 27(L) >59 02/15/2024 7:42 AM [facility] Comment:CKD-EPI (2020) in mL /min/1.73 sq meters. Sodium 136 136 - 145 mmol/L 02/15/2024 7:42 AM [facility] Potassium 3.4 3.4 - 5.3 mmol/L 02/15/2024 7:42 AM [facility] Chloride 96(L) 98 - 107 mmol/L 02/15/2024 7:42 AM [facility] CO2 27 22 - 33 mmol/L 02/15/2024 7:42 AM [facility] Anion Gap 13 7 - 17 02/15/2024 7:42 AM [facility] Calcium 8.9 8.7 - 10.5 mg/dL 02/15/2024 7:42 AM [facility] BUN/Creatinine Ratio 13 10.0 - 25.0 Ratio 02/15/2024 7:42 AM [facility] Blood (Plasma/Serum) 02/15/2024 6:38 AM EDT 02/15/2024 7:15 AM EDT us Jaimie Billings MD LAB BLOOD ORDERABLES [place] [address], [address] [address] * Lipid Panel (12/14/2019 12:59 AM EDT) [...] Health Maintenance Insurance [place] [facility] [place] [facility] Advance Directives * Full Code (Latest Code [...] Decision Thoroughly Discussed with: Patient Care Teams Citizenship Instructor Relationship Specialty [place] [address] [place] [phone] PCP - General 12/14/19
--- OUTSIDE RECORDS SUMMARY | 2025-05-05 07:52 | XMS_ITS | Clinical Summary ---
Author Organization [facility] Prior to 10/12/24 Address [address] [place] [address] Care Team Providers Care Pipe Fitter Welding Name Role Phone Cecilia Stauffer Huan HOLLOWAY Primary Care Provider [phone] Allergies Active Allergy Reactions Criticality Noted Date [...] Advance Directives For more information, please contact: [phone] Latest Code Status on File Code Status Date Activated Date Inactivated Comments Full Code 03/13/2015 10:23 PM 03/16/2015 8:28 PM Thi s code status was ascertained in the following way: discussion with patient. Care Teams Pipe Fitter Welding Relationship Specialty Start Date End Date Cecilia Stauffer APRN [address] [place] [address] PCP - General Pipe Inspector 03/13/15
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
[2025-05-05 08:39] VITALS: BP 139/89; PULSE 90; RESP 20; O2SAT 100
[2025-05-05 08:54] VITALS: BP 139/89; PULSE 90; RESP 20; TEMP -17.7; TEMP 0; O2SAT 100
== END 2025-05-05 09:13 | disposition home or self-care (01) ==
PROVIDERS: Emergency Provider Student in an Organized Health Care Education/Training Program; PCP Physician Assistant
DX: R11.2 Nausea with vomiting, unspecified (principal); R10.23 Pelvic and perineal pain bilateral; R00.0 Tachycardia, unspecified; F41.9 Anxiety disorder, unspecified; Z79.899 Other long term (current) drug therapy; Z79.4 Long term (current) use of insulin
CPT/HCPCS: 36415; 74176; 80053; 82010; 82272; 82803; 82947; 83690; 85025; 86850; 86900; 86901; 93005; 96361; 96372; 96374; 96375; 99284; J1171; J1200; J1308; J2250; J2405; J2470; J2765

== ENCOUNTER → 2025-05-05 03:52 | Outpatient (BNV) | payer OTHER, SELFPAY | PROVIDERS: Emergency Provider Student in an Organized Health Care Education/Training Program; PCP Physician Assistant; Visit Provider Internal Medicine Cardiovascular Disease | DX: R00.0 Tachycardia, unspecified (principal) | CPT/HCPCS: 93010 ==

== ENCOUNTER → 2025-05-05 03:54 | Outpatient (BNV) | payer OTHER, SELFPAY | PROVIDERS: Emergency Provider Student in an Organized Health Care Education/Training Program; PCP Physician Assistant; Visit Provider Radiology Diagnostic Radiology | DX: R10.9 Unspecified abdominal pain (principal) | CPT/HCPCS: 74176 ==